=== PATIENT | female | born 1970 | race Caucasian/White ===

== ENCOUNTER 2019-02-22 09:38 | Inpatient (IN) | payer MEDICAID, SELFPAY ==
[2019-02-22] VITALS (81 sets, daily range): BP systolic 86–141; BP diastolic 53–104; PULSE 70–121; RESP 8–32; TEMP 36.4–37; O2SAT 82–100; BMI 29.0
--- NOTE | 2019-02-22 10:07 | ED_ITS ---
Entered by Vega Rodriguez LPN, acting as scribe for Robbin Brown DO HPI - Back Pain/Injury General: Chief Complaint: Back Pain/Injury Stated Complaint: kidney problems/v Time Seen by Provider: 02/22/19 10:17 Source: patient Mode of arrival: ambulatory Limitations: no limitations History of Present Illness: HPI Narrative: 48 yo female presents with c/o right flank/ right kidney pain that started about one month ago and has gradually worsened. She states the pain is severe, not improving. She was seen in clinic yesterday, found to have blood in urine, prescribed Bactrim just incase I had infection , and Zofran. She reports the Zofran is not working, she continues to have nausea with vomiting. Pt tearful during exam, actively heaving. MD elicited complaint: back pain (right lower/ flank) Onset (ago): month(s) (onset 1 month ago) Timing: progressively worsening Severity: severe Relieving factors: none Associated symptoms: Reports abdominal pain, dysuria, hematuria, nausea and vomiting; Deny chills, fatigue, fever(s) or urinary urgency Review of Systems Const: Denies: fever, chills, body aches, change in appetite, fatigue or malaise ENMT: Denies: throat pain, ear pain, nasal discharge or nasal congestion Card: Denies: chest pain, edema, shortness of breath on exertion or shortness of breath when lying down Resp: Denies: shortness of breath, productive cough or non-productive cough GI: Reports: abdominal pain, nausea and vomiting; Denies: vomiting blood, coffee grounds in vomit, diarrhea, constipation, bloating, blood in stool or black tarry stool : Reports: flank pain (right), painful urination and blood in urine; Denies: difficulty urinating, urinary frequency or urinary urgency Musc: Reports: back pain (right lower) Skin/Breast: Denies: rash or itching PFSH ED PFSH: Statuses (acute, chronic, etc) shown below reflect problem list status as previously entered and may not be historically accurate Medical History Alcoholism (Acute) Anemia (Acute) Carpal tunnel syndrome (Acute) Chronic back pain (Acute) Chronic pancreatitis (Acute) Cirrhosis (Acute) Enteritis (Acute) GERD (gastroesophageal reflux disease) (Acute) H. pylori infection (Acute) Hepatitis A (Acute) Sciatica (Acute) Surgical History H/O rotator cuff surgery (Acute) H/O: hysterectomy (Acute) History of appendectomy (Acute) History of cholecystectomy (Acute) Social History Smoking and tobacco status: current some day smoker Alcohol intake: current Desire information about alcohol rehabilitation?: No Counseling given: Yes Last alcohol use date: 02/15/19 Substance/Drug Use: former Physical Exam Const: COMMON NORMALS: oriented x3, no limitations, alert and well nourished GENERAL APPEARANCE: cooperative, in distress (severe, obvious pain) and ill appearing ORIENTATION/CONSCIOUSNESS: Yes awake, Yes oriented to person, Yes oriented to place and Yes oriented to time HENMT: COMMON NORMALS: normocephalic, head/scalp atraumatic, hearing grossly normal bilaterally, external ears normal, EAC's normal, TM's normal bilaterally, nasal mucous membranes and turbinates normal, moist oral mucous membranes and oropharynx normal HEAD & SCALP: normocephalic and atraumatic NOSE: nasal mucous membranes and turbinates normal EXTERNAL EAR: Yes external ears normal EXTERNAL AUDITORY CANAL: EAC's normal TYMPANIC MEMBRANE: TM's normal bilaterally Eye: COMMON NORMALS: PERRL, EOMs intact bilaterally, conjunctivae normal and no scleral icterus CONJUNCTIVA: Yes conjunctivae normal PUPIL: Yes PERRL Neck/C-Spine: COMMON NORMALS: full ROM, no lymphadenopathy, supple and no JVD Lymph: LYMPHATIC: no lymphadenopathy noted and no lymphedema noted Resp: COMMON NORMALS: normal respiratory effort, no retractions, no use of accessory muscles and clear to auscultation bilaterally AUSCULTATION: clear to auscultation bilaterally Cardio: COMMON NORMALS: no JVD, regular rate, regular rhythm and no murmurs RATE: regular rate RHYTHM: regular rhythm GI: COMMON NORMALS: no hepatosplenomegaly AUSCULTATION: Yes hypoactive bowel sounds PALPATION: Yes tender (Generalized) and Yes no hepatosplenomegaly : BLADDER/KIDNEY EXAM: Yes CVA tenderness on the right Back/Pelvis: GENERAL BACK: Yes CVA tenderness Extremity: COMMON NORMALS: normal to inspection, normal capillary refill, no clubbing, cyanosis or edema, no calf tenderness and no pedal edema Neuro: COMMON NORMALS: oriented x3 SENSORIUM/ORIENTATION: Yes alert, Yes oriented to person, Yes oriented to place and Yes oriented to time Skin: COMMON NORMALS: no rashes or lesions noted GENERAL SKIN EXAM: no rashes or lesions noted Course Consultations: Consultation #1: Discussed with Dr. Heck. He accepts pt for Obs. Will page Dr. Boyle for consult. Time: 16:24 Consultation #2: Discussed with Dr. Boyle. He is aware, will consult if needed. Time: 16:26 Vital Signs: Vital signs: Vital Signs Temperature 97.8 F 02/24/19 11:40 Pulse Rate 68 02/24/19 11:40 Respiratory Rate 18 02/24/19 11:40 Blood Pressure 127/92 02/24/19 11:40 Pulse Oximetry 97 02/24/19 11:40 MDM - Back Pain/Injury Lab Data: Labs: Lab Results 02/22/19 02/22/19 02/22/19 Range/Units 09:52 10:27 10:27 WBC 6.4 (4.0-10.0) 10^3/ uL RBC 3.10 L (4.1-5.3) 10^6/u L Hgb 11.1 L (11.5-15.3) g/dL Hct 33.8 L (37.0-47.0) % MCV 109.0 H (81-99) fL MCH 35.8 H (28.0-34.0) pg MCHC 32.8 (30.0-36.0) g/dL RDW 19.3 H (12.1-15.1) % Plt Count 275 (130-400) 10^3/c mm MPV 10.3 (7.4-10.4) fL Neut % (Auto) 62.8 % Lymph % (Auto) 26.3 % Stokes % (Auto) 6.9 % Eos % (Auto) 3.1 % Baso % (Auto) 0.6 % Neut # (Auto) 4.0 (1.8-7.7) 10^3/u L Lymph # (Auto) 1.7 (0.8-4.8) 10^3/u L Stokes # (Auto) 0.4 (0.2-0.9) 10^3/u L Eos # (Auto) 0.2 (0.0-0.8) 10^3/u L Baso # (Auto) 0.0 (0.0-0.1) 10^3/u L Nucleated RBC % (a uto) 0 % Nucleated RBCs # 0.0 /100WBC Sodium 139 (136-145) mmol/L Potassium 3.6 (3.5-5.1) mmol/L Chloride 103 (98-107) mmol/L Carbon Dioxide 21 L (22-29) mmol/L Anion Gap 18.6 (5-19) BUN 21 H (6-20) mg/dL Creatinine 1.2 H (0.5-0.9) mg/dL GFR Calculation 47.6 L (90-130) mL/min Glucose 99 (74-109) mg/dL Lactate (0.5-2.2) mmol/L Calcium 10.6 H (8.6-10.0) mg/Dl Total Bilirubin 0.2 (0.15-1.2) mg/dL AST 25 (0-32) U/L ALT 20 (0-33) U/L Alkaline Phosphata se 84 (35-105) IU/L Total Protein 7.6 (6.6-8.7) g/dL Albumin 4.9 (3.5-5.2) g/dL Globulin 2.7 (1.3-4.6) g/dL Lipase 147 H (13-60) U/L Urine Color Yellow (Yellow) Urine Appearance Clear (CLEAR) Urine pH 6.5 (5-7) Ur Specific Gravit y 1.015 (1.005-1.030) Urine Protein Neg (Negative) Urine Glucose (UA) Norm (Normal) Urine Ketones Negative (Negative) Urine Occult Blood Neg (Negative) Urine Nitrate Negative (Negative) Urine Bilirubin Neg (NEGATIVE) Urine Urobilinogen Norm (Negative) mg/dL Ur Leukocyte Susan ase Negative (Negative) 02/22/19 Range/Units 10:27 WBC (4.0-10.0) 10^3/ uL RBC (4.1-5.3) 10^6/u L Hgb (11.5-15.3) g/dL Hct (37.0-47.0) % MCV (81-99) fL MCH (28.0-34.0) pg MCHC (30.0-36.0) g/dL RDW (12.1-15.1) % Plt Count (130-400) 10^3/c mm MPV (7.4-10.4) fL Neut % (Auto) % Lymph % (Auto) % Stokes % (Auto) % Eos % (Auto) % Baso % (Auto) % Neut # (Auto) (1.8-7.7) 10^3/u L Lymph # (Auto) (0.8-4.8) 10^3/u L Stokes # (Auto) (0.2-0.9) 10^3/u L Eos # (Auto) (0.0-0.8) 10^3/u L Baso # (Auto) (0.0-0.1) 10^3/u L Nucleated RBC % (a uto) % Nucleated RBCs # /100WBC Sodium (136-145) mmol/L Potassium (3.5-5.1) mmol/L Chloride (98-107) mmol/L Carbon Dioxide (22-29) mmol/L Anion Gap (5-19) BUN (6-20) mg/dL Creatinine (0.5-0.9) mg/dL GFR Calculation (90-130) mL/min Glucose (74-109) mg/dL Lactate 0.7 (0.5-2.2) mmol/L Calcium (8.6-10.0) mg/Dl Total Bilirubin (0.15-1.2) mg/dL AST (0-32) U/L ALT (0-33) U/L Alkaline Phosphata se (35-105) IU/L Total Protein (6.6-8.7) g/dL Albumin (3.5-5.2) g/dL Globulin (1.3-4.6) g/dL Lipase (13-60) U/L Urine Color (Yellow) Urine Appearance (CLEAR) Urine pH (5-7) Ur Specific Gravit y (1.005-1.030) Urine Protein (Negative) Urine Glucose (UA) (Normal) Urine Ketones (Negative) Urine Occult Blood (Negative) Urine Nitrate (Negative) Urine Bilirubin (NEGATIVE) Urine Urobilinogen (Negative) mg/dL Ur Leukocyte Susan ase (Negative) Imaging Data^: CT Abd/Pel: Radiologist's impression: Patient: Melissa Portillo #: [id number] : 1970Acct#:[id number] Age/Sex: 48 / FADM Date: 02/22/19 Loc: ERRoom/Bed: Attending Dr: Ordering Provider/Ordering MD: Robbin Brown DO Date of Service: 02/22/19 Procedure(s): CT kidney stone [id number] Accession Number(s): [id number] Report Number: [id number] PROCEDURE INFORMATION: Exam: CT Abdomen And Pelvis Without Contrast Exam date and time: 02/22/2019 11:26 AM Age: 48 years old Clinical indication: Abdominal pain; Other: Jack. Flank pain; Prior surgery; Surgery date: 6+ months; Surgery type: Appy, hysto, gb; Additional info: Hematuria flank pain TECHNIQUE: Imaging protocol: Computed tomography of the abdomen and pelvis without contrast. Total DLP: 1331.74 mGy-cm Radiation optimization: All CT scans at this facility use at least one of these dose optimization techniques: automated exposure control; mA and/or kV adjustment per patient size (includes targeted exams where dose is matched to clinical indication); or iterative reconstruction. COMPARISON: CT Abdomen/Pelvis Renal [id number] 07/27/2018 2:54 PM FINDINGS: Lungs: Bibasilar atelectasis. No focal consolidation. Liver: Mild diffuse hepatic steatosis. Gallbladder and bile ducts: Extrahepatic duct again noted to be dilated similar to prior, likely due to reservoir effect in the setting of cholecystectomy. Pancreas: Normal. No ductal dilation. Spleen: Normal. No splenomegaly. Adrenals: Normal. No mass. Kidneys and ureters: No renal or ureteral calculi. No hydronephrosis. Normal renal contours. Stomach and bowel: Partial sigmoid resection. No evidence of bowel obstruction or inflammation. Appendix: Not seen; appendectomy by history. Intraperitoneal space: No free air. No significant fluid collection. Vasculature: No abdominal aortic aneurysm. Lymph nodes: Unremarkable. No enlarged lymph nodes. Bladder: Unremarkable as visualized. Reproductive: Hysterectomy. Bones/joints: No acute or aggressive osseous lesion. Soft tissues: Unremarkable. CT/CT kidney stone [id number] IMPRESSION: 1. No evidence of urinary tract calculus or obstruction. 2. No acute findings on non-contrast CT. 3. Mild hepatic steatosis. 4. Chronic and incidental findings as described. Radiation Dose CTDIVOL = (mGy): DLP = 1331.74 (mGy-cm) Dictated By:Allan Pineda MD Other Imaging: Radiologist's impression: Patient: Melissa Portillo #: [id number] : 1970Acct#:[id number] Age/Sex: 48 / FADM Date: 02/22/19 Loc: ERRoom/Bed: Attending Dr: Ordering Provider/Ordering MD: Robbin Brown DO Date of Service: 02/22/19 Procedure(s): CT abdomen pelvis w con* [id number] Accession Number(s): [id number] Report Number: [id number] PROCEDURE INFORMATION: Exam: CT Abdomen And Pelvis With Contrast Exam date and time: 02/22/2019 1:48 PM Age: 48 years old Clinical indication: Abdominal pain; Generalized; Prior surgery; Surgery date: 6+ months; Surgery type: Hysto, gb; Additional info: Abd pain and back pain TECHNIQUE: Imaging protocol: Computed tomography of the abdomen and pelvis with intravenous contrast. Total DLP: 1008.81 mGy-cm Radiation optimization: All CT scans at this facility use at least one of these dose optimization techniques: automated exposure control; mA and/or kV adjustment per patient size (includes targeted exams where dose is matched to clinical indication); or iterative reconstruction. Contrast material: VISI 320; Contrast volume: 95 ml; Contrast route: RT HAND; COMPARISON: CT kidney stone [id number] 02/22/2019 11:48 AM FINDINGS: Liver: Normal. No mass. Gallbladder and bile ducts: The gallbladder has been removed.Prominence of the intrahepatic and extrahepatic biliary ducts. This can be seen after cholecystectomy. No radiopaque retained stones are seen. Pancreas: Normal. No ductal dilation. Spleen: Normal. No splenomegaly. Adrenals: Normal. No mass. 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 Stomach and bowel: There are postoperative changes in the proximal sigmoid colon. There is diverticulosis of the colon without evidence of diverticulitis. There are air-fluid levels in the distal colon suggesting mild nonspecific colitis versus other diarrheal illness. There are mildly dilated mid to distal small bowel loops. Distal ileum is of normal caliber. Mild small bowel mucosal thickening. Appendix: No evidence of appendicitis. Intraperitoneal space: Unremarkable. No free air. No significant fluid collection. Vasculature: Unremarkable. No abdominal aortic aneurysm. Lymph nodes: Unremarkable. No enlarged lymph nodes. Bladder: Unremarkable as visualized. Reproductive: The uterus is not visualized, consistent with hysterectomy. Bones/joints: Unremarkable. No acute fracture. Soft tissues: There are benign-appearing soft tissue calcifications. CT/CT abdomen pelvis w con* [id number] IMPRESSION: 1. There are air-fluid levels in the distal colon suggesting mild nonspecific colitis versus other diarrheal illness. 2. Mild small bowel mucosal thickening consistent with nonspecific enteritis. 3. There are mildly dilated mid to distal small bowel loops and an early or partial small bowel obstruction cannot be excluded. Radiation Dose CTDIVOL = (mGy): DLP = 1008.81 (mGy-cm) Dictated By:Bhumika Dietz MD Discharge Plan Discharge Patient Disposition: Admitted As Inpatient Admit Provider: Stuart Conteh Clinical Impression: Small bowel obstruction, partial, KATRIN (acute kidney injury), Alcoholism, Alcoholic gastritis, Anemia Condition: Stable Discharge Orders: Discharge Order (Routine); Ordered 02/24/19 Ordered By: Stuart Conteh Referrals: Maggie Serna DPM [Primary Care Provider] - 02/26/19 10:30 am [facility] [place], [Staff Physician] - 1 month (PLEASE CALL [facility] TO SET UP A FOLLOW UP APPOINTMENT.) Leslie Magaña MD [Family Provider] - 2 weeks Discharge Diet: GI Soft Discharge Activity: Resume usual activity Additional Instructions: Patient was counseled about alcohol cessation. Patient was counseled about H. pylori and treatment for 2 weeks. Patient was counseled about following up with behavioral health. Interventions: ED Discharge Assessment Last Done: 02/22/19 17:20 Discharge Date/Time: 02/22/19 17:37 Coding Level of Care Code ED Chief Of Anesthesiology for Chg Fwd Exam Problem Focused The documentation recorded by the Jennifer rodriges Dani Elizabeth, LPN, accurately reflects the service I personally performed and the decisions made by me, Robbin Brown DO Feb 22, 2019 09:38
--- NOTE | 2019-02-22 10:21 | CTR_ITS ---
PROCEDURE INFORMATION: Exam: CT Abdomen And Pelvis Without Contrast Exam date and time: 02/22/2019 11:26 AM Age: 48 years old Clinical indication: Abdominal pain; Other: Jack. Flank pain; Prior surgery; Surgery date: 6+ months; Surgery type: Appy, hysto, gb; Additional info: Hematuria flank pain TECHNIQUE: Imaging protocol: Computed tomography of the abdomen and pelvis without contrast. Total DLP: 1331.74 mGy-cm Radiation optimization: All CT scans at this facility use at least one of these dose optimization techniques: automated exposure control; mA and/or kV adjustment per patient size (includes targeted exams where dose is matched to clinical indication); or iterative reconstruction. COMPARISON: CT Abdomen/Pelvis Renal [id number] 07/27/2018 2:54 PM FINDINGS: Lungs: Bibasilar atelectasis. No focal consolidation. Liver: Mild diffuse hepatic steatosis. Gallbladder and bile ducts: Extrahepatic duct again noted to be dilated similar to prior, likely due to reservoir effect in the setting of cholecystectomy. Pancreas: Normal. No ductal dilation. Spleen: Normal. No splenomegaly. Adrenals: Normal. No mass. Kidneys and ureters: No renal or ureteral calculi. No hydronephrosis. Normal renal contours. Stomach and bowel: Partial sigmoid resection. No evidence of bowel obstruction or inflammation. Appendix: Not seen; appendectomy by history. Intraperitoneal space: No free air. No significant fluid collection. Vasculature: No abdominal aortic aneurysm. Lymph nodes: Unremarkable. No enlarged lymph nodes. Bladder: Unremarkable as visualized. Reproductive: Hysterectomy. Bones/joints: No acute or aggressive osseous lesion. Soft tissues: Unremarkable. CT/CT kidney stone [id number] IMPRESSION: 1. No evidence of urinary tract calculus or obstruction. 2. No acute findings on non-contrast CT. 3. Mild hepatic steatosis. 4. Chronic and incidental findings as described. Radiation Dose CTDIVOL = (mGy): DLP = 1331.74 (mGy-cm)
[2019-02-22 10:34] LABS: Basophils % 0.6 %; Eosinophils # 0.2 10^3/uL (0.0-0.8); Eosinophils % 3.1 %; Hematocrit 33.8 % (37.0-47.0); Hemoglobin 11.1 g/dL (11.5-15.3); Lymphocytes # 1.7 10^3/uL (0.8-4.8); Lymphocytes % 26.3 %; Mean Corpuscular HGB Conc 32.8 g/dL (30.0-36.0); Mean Corpuscular Hemoglobin 35.8 pg (28.0-34.0); Mean Platelet Volume 10.3 fL (7.4-10.4); Monocytes # 0.4 10^3/uL (0.2-0.9); Monocytes % 6.9 %; Neutrophils % 62.8 %; Nucleated Red Blood Cells % 0 %; Platelet Count 275 10^3/cmm (130-400); Red Cell Distribution Width 19.3 % (12.1-15.1); White Blood Count 6.4 10^3/uL (4.0-10.0)
[2019-02-22] MEDS: sodium chloride 0.9% 1,000 ML 999 ML IV (10:44)
[2019-02-22] MEDS: metoclopramide 5 mg/mL SDV 2 mL 10 MG IV (10:44)
[2019-02-22] MEDS: morphine 4 mg/mL SDV 1 mL 8 MG IVP (10:44)
[2019-02-22 10:52] LABS: Alanine Aminotransferase 20 U/L (0-33); Albumin Level 4.9 g/dL (3.5-5.2); Alkaline Phosphatase 84 IU/L (35-105); Anion Gap 18.6 (5-19); Aspartate Amino Transferase 25 U/L (0-32); Blood Urea Nitrogen 21 mg/dL (6-20); Calcium 10.6 mg/Dl (8.6-10.0); Carbon Dioxide 21 mmol/L (22-29); Chloride 103 mmol/L (98-107); Globulin 2.7 g/dL (1.3-4.6); Glomerular Filtration Rate 47.6 mL/min (90-130); Glucose 99 mg/dL (74-109); Lactate (Lactic Acid level) 0.7 mmol/L (0.5-2.2); Lipase 147 U/L (13-60); Potassium 3.6 mmol/L (3.5-5.1); Sodium 139 mmol/L (136-145); Total Bilirubin 0.2 mg/dL (0.15-1.2); Total Protein 7.6 g/dL (6.6-8.7)
[2019-02-22 11:07] LABS: Add Urine Microscopic? NO
[2019-02-22 11:26] LABS: Protein Urine Neg (Negative); Specific Gravity, Urine 1.015 (1.005-1.030); Urine Appearance Clear (CLEAR); Urine Color Yellow (Yellow); pH Urine 6.5 (5-7)
[2019-02-22 11:27] LABS: Bilirubin Urine Neg (NEGATIVE); Blood Urine Neg (Negative); Glucose Urine UA Norm (Normal); Ketones Urine Negative (Negative); Leukocyte Esterase Urine Negative (Negative); Nitrate Urine Negative (Negative); Urobilinogen Urine Norm (Negative)
[2019-02-22] MEDS: morphine 4 mg/mL SDV 1 mL IVP ×2 (12:23→16:23)
[2019-02-22] MEDS: sodium chlor 0.45% +KCl 20 mEq 20 MEQ/1,000 ML BAG 150 MEQ IV (12:55)
--- NOTE | 2019-02-22 13:05 | CTR_ITS ---
PROCEDURE INFORMATION: Exam: CT Abdomen And Pelvis With Contrast Exam date and time: 02/22/2019 1:48 PM Age: 48 years old Clinical indication: Abdominal pain; Generalized; Prior surgery; Surgery date: 6+ months; Surgery type: Hysto, gb; Additional info: Abd pain and back pain TECHNIQUE: Imaging protocol: Computed tomography of the abdomen and pelvis with intravenous contrast. Total DLP: 1008.81 mGy-cm Radiation optimization: All CT scans at this facility use at least one of these dose optimization techniques: automated exposure control; mA and/or kV adjustment per patient size (includes targeted exams where dose is matched to clinical indication); or iterative reconstruction. Contrast material: VISI 320; Contrast volume: 95 ml; Contrast route: RT HAND; COMPARISON: CT kidney stone [id number] 02/22/2019 11:48 AM FINDINGS: Liver: Normal. No mass. Gallbladder and bile ducts: The gallbladder has been removed.Prominence of the intrahepatic and extrahepatic biliary ducts. This can be seen after cholecystectomy. No radiopaque retained stones are seen. Pancreas: Normal. No ductal dilation. Spleen: Normal. No splenomegaly. Adrenals: Normal. No mass. 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 Stomach and bowel: There are postoperative changes in the proximal sigmoid colon. There is diverticulosis of the colon without evidence of diverticulitis. There are air-fluid levels in the distal colon suggesting mild nonspecific colitis versus other diarrheal illness. There are mildly dilated mid to distal small bowel loops. Distal ileum is of normal caliber. Mild small bowel mucosal thickening. Appendix: No evidence of appendicitis. Intraperitoneal space: Unremarkable. No free air. No significant fluid collection. Vasculature: Unremarkable. No abdominal aortic aneurysm. Lymph nodes: Unremarkable. No enlarged lymph nodes. Bladder: Unremarkable as visualized. Reproductive: The uterus is not visualized, consistent with hysterectomy. Bones/joints: Unremarkable. No acute fracture. Soft tissues: There are benign-appearing soft tissue calcifications. CT/CT abdomen pelvis w con* [id number] IMPRESSION: 1. There are air-fluid levels in the distal colon suggesting mild nonspecific colitis versus other diarrheal illness. 2. Mild small bowel mucosal thickening consistent with nonspecific enteritis. 3. There are mildly dilated mid to distal small bowel loops and an early or partial small bowel obstruction cannot be excluded. Radiation Dose CTDIVOL = (mGy): DLP = 1008.81 (mGy-cm)
[2019-02-22] MEDS: iodixanol 320 mg/mL 100mL Btl IV (13:59)
[2019-02-22] MEDS: fentaNYL 50 mcg/mL INJ 2mL IVP (14:16)
--- NOTE | 2019-02-22 18:35 | P.HP_ITS ---
Providers/Chief Complaint Admitting Physician: Stuart Conteh MD Primary Care Provider: MALDONADO Mendez Chief Complaint: ileus;early sob;persistant n/v History of Present Illness Melissa Portillo is a 48 year old female with past medical history of alcoholism, last drink was 1 week ago, history of recurrent chronic pancreatitis attributed to alcoholism per patient ,presented to the emergency department for abdominal pain today. She was reportedly taking alcohol 1 week ago. She presents to the ED with history that she started experiencing right-sided abdominal pain which was initially described as being located in the right flank and back. This pain was intermittent sharp however tolerable for the most part therefore she did not seek any help. 3 days ago also started on the left flank. She describes it as dull pain and feels as if someone is punching her in the back. this pain is more continuous. Yesterday she has also started experiencing pain in the epigastrium and left upper quadrant as well. She reports that her past episodes of pancreatitis have been very similar. She also endorses multiple episodes of diarrhea yesterday. No complaints of melena. No blood in stools. No tenesmus. She has had a cholecystectomy in 2000 for what appears to be acute cholecystitis. On evaluation in the ER today she is afebrile, though she does report fever up to 103 Fahrenheit at home. She denies any complaints of nausea or vomiting at this time. She underwent a CT of the abdomen and pelvis today which did not show any evidence of urinary tract calculus obstruction. Air-fluid levels were also found in the distal colon suggesting mild nonspecific colitis versus other diarrheal illness,mild small bowel mucosal thickening consistent with nonspecific enteritis. There was mildly dilated mid to distal small bowel loops and an early or partial SBO which could not be excluded. Pancreas on this above CT has been read as normal without any ductal dilatation. The spleen is also noted to be normal without any splenomegaly. Liver is also noted to be normal. Lipase is at 147, however this appears to be more chronic dating back to at least September 2018 Ranging between 10 6-1 64 in the past. She has been taking Tylenol at home without any relief in symptoms. 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 She has also has a history of upper GI bleed thought to be secondary to a Brinda-Ellis tear. She underwent an upper GI endoscopy in August 2018 which showed gastritis and duodenitis. No paresis were noticed. Other notable history includes that of acute psychosis in June 2017. Review of Systems General: Reports: 10 or more systems reviewed and unremarkable except in HPI and below Const: Reports: fever, body aches and change in weight (She has been gaining weight); Denies: chills Eyes: Denies: change in vision or blurry vision ENMT: Denies: throat pain, painful swallowing or hoarseness Card: Denies: chest pain, palpitations, irregular heart rhythm or edema Resp: Denies: shortness of breath, productive cough, non-productive cough or wheezing GI: Reports: abdominal pain, heartburn/indigestion and diarrhea; Denies: nausea, vomiting, vomiting blood, coffee grounds in vomit, difficulty swallowing, feeling full early, constipation, bloating, cramping or belching : Reports: flank pain; Denies: difficulty urinating, painful urination, urinary frequency or urinary urgency Medications/Allergies Home Medications Medication Instructions Recorded Confirmed Last Taken Type Zofran 4 mg PO Q6H PRN 02/22/19 02/22/19 02/22/19 History gabapentin 800 mg PO TID 02/22/19 02/22/19 02/21/19 History Allergies Allergy/AdvReac Type Severity Reaction Status Date / Time codeine Allergy ALGY-Hives Verified 02/22/19 10:03 ketorolac [From Toradol] Allergy ALGY-Rash Verified 02/22/19 10:02 naproxen [From Naprosyn] Allergy ADR-Vomitin Verified 02/22/19 10:02 g prochlorperazine Allergy ALGY-Swell Verified 02/22/19 10:02 [From Compazine] Lip/Tongue/Throat PFSH Acute PFSH: Statuses (acute, chronic, etc) shown below reflect problem list status as previously entered and may not be historically accurate Medical History Alcoholism (Acute) Anemia (Acute) Carpal tunnel syndrome (Acute) Chronic back pain (Acute) Chronic pancreatitis (Acute) Cirrhosis (Acute) Enteritis (Acute) GERD (gastroesophageal reflux disease) (Acute) H. pylori infection (Acute) Hepatitis A (Acute) Sciatica (Acute) Surgical History H/O rotator cuff surgery (Acute) H/O: hysterectomy (Acute) History of appendectomy (Acute) History of cholecystectomy (Acute) Social History Smoking and tobacco status: current some day smoker Alcohol intake: current Desire information about alcohol rehabilitation?: No Counseling given: Yes Last alcohol use date: 02/15/19 Substance/Drug Use: former Vitals/I&O/Wt Last Vital Signs Temp 97.5 F L 02/22/19 17:57 Pulse 74 02/22/19 17:57 Resp 20 H 02/22/19 17:57 BP 94/59 02/22/19 17:57 Pulse Ox 99 02/22/19 17:57 Weight last 48 hrs Weight 76.657 kg Physical Exam Const: COMMON NORMALS: no apparent distress, oriented x3 and well nourished HENMT: COMMON NORMALS: normocephalic and head/scalp atraumatic Eye: COMMON NORMALS: PERRL, EOMs intact bilaterally, conjunctivae normal, no scleral icterus, no papilledema and normal visual butts by confrontation Resp: COMMON NORMALS: normal respiratory effort, no retractions, no use of accessory muscles and clear to auscultation bilaterally Cardio: COMMON NORMALS: no JVD, regular rate, regular rhythm, S1 normal heart sound, S2 normal heart sound, no gallops, no clicks, no murmurs, no rub and peripheral pulses 2+ throughout GI: COMMON NORMALS: normal to inspection, nondistended, normoactive bowel sounds and soft to palpation PALPATION: Yes soft and Yes tender (I am unable to ascertain the tenderness. she she starts to complain of pain as soon as I placed my hand on the abdomen even without minimal palpation. I do not appreciate any focal guarding. Unable to assess for rebound as even with light touch patient complains of pain) Details: RLQ, LUQ and RUQ Extremity: COMMON NORMALS: normal to inspection, full ROM, normal capillary refill, no joint enlargement, no clubbing, cyanosis or edema, no calf tenderness and no pedal edema Sepsis: Is patient septic: No Data : 02/24/19 05:27 02/24/19 05:27 A&P Assessment and plan (1) Chronic pancreatitis: Status: Acute Code(s): K86.1 - Other chronic pancreatitis (2) Alcoholism: Status: Acute Code(s): F10.20 - Alcohol dependence, uncomplicated (3) Small bowel obstruction, partial: Status: Acute Code(s): K56.600 - Partial intestinal obstruction, unspecified as to cause (4) Enteritis: Status: Acute Code(s): K52.9 - Noninfective gastroenteritis and colitis, unspecified (5) Diarrhea: Status: Acute Code(s): R19.7 - Diarrhea, unspecified (6) KATRIN (acute kidney injury): Status: Acute Code(s): N17.9 - Acute kidney failure, unspecified Additional A&P Information Additional A&P Information: In a patient with chronic pancreatitis and multiple episodes of diarrhea, there is concern for pancreatic insufficiency and resultant mild obstructive diarrhea. We will check for stool pH, lactoferrin and stool fat. We will additionally perform bacterial antigen panel and C. difficile PCR to rule out infective causes. Given absence of any current fever or leukocytosis doubt that this is infectious in nature. Additionally patient does not complain of any characteristic symptoms of colitis such as tenesmus. Lipase is not markedly different from her baseline. Will add on amylase. Pancreas on CT scan performed today looks completely normal, doubt acute pancreatitis, however given significant history and current pain will place patient on a pain control regimen with as needed morphine for now. IV hydration. Currently patient is receiving normal saline at 150 cc/h. I will continue this. Patient does have a history of GERD and alcoholic gastritis. Will start patient on sucralfate and Protonix for this. Again partial SBO as noted on CAT scan without overt clinical symptoms at this time. Patient denies any complaints of nausea or vomiting.. She is having multiple episodes of diarrhea. Hold off on placement of NGT for now. I will place her on a clear liquid diet and advance as tolerated. Denies any melena to me. Of note previous CAT scans performed in the past have noticed findings of enteritis and nonspecific colitis in the setting of fecal impaction. Last drink was 1 week ago per patient. Will place on CIWA protocol in case patient goes into alcohol withdrawal. Fever to monitor off antimicrobials given absence of any signs of sepsis at this time. Patient is overall relatively clinically well-appearing with the symptoms that she is describing. DVT prophylaxis is with Lovenox CODE STATUS is full code. Attestations Medical Necessity Statement*: More than 2 MN for pancreatitis Coding Level of Care Code Acute Facility Practice Specialist for Chg Fwd Exam Problem Focused Diagnoses Chronic pancreatitis K86.1 Alcoholism F10.20 Small bowel obstruction, partial K56.600 Enteritis K52.9 Diarrhea R19.7 KATRIN (acute kidney injury) N17.9
[2019-02-22] MEDS: acetaminophen 325 mg Tablet 650 MG PO (20:33)
[2019-02-22] MEDS: morphine 4 mg/mL SDV 1 mL 2 MG IVP (21:07)
[2019-02-22] MEDS: sodium chloride 0.9% 1,000 ML 125 ML IV (21:59)
[2019-02-22] MEDS: enoxaparin 30 mg/0.3 mL Syringe SUBCUT (21:59)
[2019-02-22] MEDS: gabapentin 400 mg Capsule 800 MG PO (22:00)
[2019-02-23] VITALS (8 sets, daily range): BP systolic 88–118; BP diastolic 55–74; PULSE 72–85; RESP 18–22; TEMP 36.6–37.4; O2SAT 93–98
[2019-02-23] MEDS: acetaminophen 325 mg Tablet 650 MG PO ×3 (01:42→16:10)
[2019-02-23] MEDS: morphine 4 mg/mL SDV 1 mL 2 MG IVP (02:15)
[2019-02-23 04:55] LABS: Basophils % 0.4 %; Eosinophils # 0.1 10^3/uL (0.0-0.8); Eosinophils % 2.2 %; Hematocrit 25.5 % (37.0-47.0); Hemoglobin 8.1 g/dL (11.5-15.3); Lymphocytes # 1.6 10^3/uL (0.8-4.8); Mean Corpuscular HGB Conc 31.8 g/dL (30.0-36.0); Mean Corpuscular Hemoglobin 35.4 pg (28.0-34.0); Mean Corpuscular Volume 111.4 fL (81-99); Mean Platelet Volume 9.4 fL (7.4-10.4); Monocytes # 0.2 10^3/uL (0.2-0.9); Monocytes % 5.1 %; Neutrophils # 2.6 10^3/uL (1.8-7.7); Neutrophils % 57.1 %; Nucleated Red Blood Cells % 0 %; Platelet Count 174 10^3/cmm (130-400); Red Blood Count 2.29 10^6/uL (4.1-5.3); Red Cell Distribution Width 19.3 % (12.1-15.1); White Blood Count 4.5 10^3/uL (4.0-10.0)
[2019-02-23 05:09] LABS: Alanine Aminotransferase 66 U/L (0-33); Albumin Level 3.9 g/dL (3.5-5.2); Alkaline Phosphatase 104 IU/L (35-105); Anion Gap 11.8 (5-19); Aspartate Amino Transferase 220 U/L (0-32); Blood Urea Nitrogen 12 mg/dL (6-20); Calcium 9.1 mg/Dl (8.6-10.0); Carbon Dioxide 20 mmol/L (22-29); Chloride 109 mmol/L (98-107); Globulin 1.9 g/dL (1.3-4.6); Glomerular Filtration Rate 88.6 mL/min (90-130); Glucose 98 mg/dL (74-109); Potassium 3.8 mmol/L (3.5-5.1); Sodium 137 mmol/L (136-145); Total Bilirubin 0.4 mg/dL (0.15-1.2); Total Protein 5.8 g/dL (6.6-8.7); Triglycerides 108 mg/dL (0-150)
[2019-02-23] MEDS: ondansetron 2 mg/ML SDV 2 mL 4 MG IVP ×2 (08:16→20:28)
[2019-02-23] MEDS: pantoprazole DR 40 mg Tablet PO ×2 (09:02→17:13)
[2019-02-23] MEDS: gabapentin 400 mg Capsule 800 MG PO ×3 (09:02→20:23)
[2019-02-23] MEDS: folic acid 1 mg Tablet PO (09:02)
[2019-02-23] MEDS: multivitamin therapeutic Tablet 1 TAB PO (09:03)
[2019-02-23] MEDS: thiamine 100 mg Tablet PO (09:03)
[2019-02-23 10:52] LABS: Amphetamines Screen Urine Negative (Negative); Barbiturates Screen Urine Negative (Negative); Benzodiazepines Screen Urine Negative (Negative); Cocaine Screen Urine Negative (Negative); PCP Screen Urine Negative (Negative); THC Screen Urine Negative (Negative)
[2019-02-23] MEDS: TRAMadol 50 mg Tablet PO ×2 (11:56→18:23)
[2019-02-23 12:18] LABS: Iron 40 ug/dL (37-145); Percent Saturation 15.6 % (20-50); Total Iron Binding Capacity 255 mg/dL; Unsaturated Iron Binding 215 ug/dL (112-347)
[2019-02-23 12:36] LABS: Estmated Average Glucose 82; Hemoglobin A1C 4.5 % (4.0-6.0)
[2019-02-23] MEDS: sodium chloride 0.9% 1,000 ML 125 ML IV (13:00)
--- NOTE | 2019-02-23 13:58 | PC.CHAP ---
Pastoral Care Encounter/Spiritual Assessment Type of Contact [] Declined mechanical systems engineer visit [] Patient/Family/Request visit [] Outpatient visit [] Follow-up visit [] Physician referral [] Code/Alert [X] Routine visit [] Staff referral [] Actively dying [X] Patient sleeping [] Family support [] [] Out of room [] Palliative care [] [] Receiving care in room [] Pre-surgical visit [] Trauma [] Long length of stay [] ICU visit [] Other: Relational/Emotional Strength [] Patient feels connected with others/family/visitors/staff [] Distress [] Loneliness/isolation [] Abandonment Spirituality of Patient [] Person of Lety [] Attends Yarsani of their Lety [] Believes in Prayer [] Reads Bible or Restoration materials [] There are Spiritual issues to be addressed [employer] Interventions [] Prayer [] Active listening [] Non-anxious presence [] Spiritual/emotional support [] Crisis/trauma care [] Spiritual counseling [] Bereavement support [] Provided bereavement packet [] Provided Bible/devotional materials [] Provided toy/stuffed animal, coloring book to patient or family member [] Completed spiritual assessment [] Provided Communion [] Anointing/[place] [] Salvation [] Other: Impact on Illness or Injury [] Angry [] Fearful [] Anxious [] Often cries [] Exhaustion [] Unable to work [] Unable to attend muslim [] Unable to walk/stand [] Unable to read [] Unable to drive [] Unable to eat/drink [] Unable to sleep [] Unable to be with family [] Other: Summary PATIENT WAS SLEEPING,discount clerk WILL REVISIT. Time spent with patient 5 MIN.
--- NOTE | 2019-02-23 16:53 | PM.PN ---
Subjective Subjective: Interval history: No acute events overnight. Admitted yesterday evening. This morning on evaluation when I walked into the room patient was sitting comfortably in bed watching television and working on her phone but on interview patient is anxious and tearful asking for IV pain medications. She states her abdomen is hurting all over. Patient in past on review of records has shown some pain medication seeking behavior. She complains of mild nausea but no vomiting. Denies of having any dysuria. Denies of having any further diarrhea. Medications: Reviewed: Yes Vitals/I&O/Wt Last Vital Signs Temp 99.4 F 02/23/19 15:33 Pulse 85 02/23/19 15:33 Resp 20 H 02/23/19 15:33 BP 92/60 02/23/19 15:33 Pulse Ox 96 02/23/19 15:33 02/23/19 02/23/19 02/23/19 06:59 14:59 22:59 Intake Total 1000 / 1000 1080 / 1080 Balance 1000 / 1000 1080 / 1080 Weight last 48 hrs Weight 85.275 kg Weight 76.657 kg Physical Exam Narrative: EXAM NARRATIVE: General: No acute distress, AO x3 HEENT: PERRLA, pupils bilaterally equal and reactive Chest: Normal vesicular breath sounds, no added sounds, equal good air entry bilaterally CVS: S1-S2 regular, no murmurs, no tachycardia, no gallops, no rubs Abdomen: Soft, nontender, no organomegaly, bowel sounds present. Patient jumps because of pain on slight touch but has no pain when auscultating for bowel sounds. No rebound tenderness. Neuro: No focal deficits, no facial deformity, AO x3, power 5/5 in all limbs Psych: Anxious, tearful, cooperative, normal speech, denies any suicidal homicidal ideation. Patient does have pain medication seeking behavior. Data Micro: Micro: Microbiology 02/22/19 10:20 Stool Lactoferrin - Final Stool Enteric Pathogens (PCR) - Final C.difficile Toxin B Gene (PCR) - Fin al Occult Blood (FIT) - Final A&P Assessment and plan (1) Diarrhea: Status: Acute Code(s): R19.7 - Diarrhea, unspecified (2) Enteritis: Status: Acute Code(s): K52.9 - Noninfective gastroenteritis and colitis, unspecified (3) Anemia: Status: Acute Code(s): D64.9 - Anemia, unspecified (4) Chronic pancreatitis: Status: Acute Code(s): K86.1 - Other chronic pancreatitis (5) Alcoholism: Status: Acute Code(s): F10.20 - Alcohol dependence, uncomplicated (6) Small bowel obstruction, partial: Status: Acute Code(s): K56.600 - Partial intestinal obstruction, unspecified as to cause (7) KATRIN (acute kidney injury): Status: Acute Code(s): N17.9 - Acute kidney failure, unspecified (8) Alcoholic gastritis: Status: Acute Code(s): K29.20 - Alcoholic gastritis without bleeding Additional A&P Information Additional A&P Information: Abdominal pain/diarrhea/chronic pancreatitis: History of alcoholic gastritis. States she had last alcohol 4 days ago. She states she takes 1 pint of vodka every day. CT abdomen done on admission negative for any inflammation of the pancreas, hydronephrosis, stranding around bilateral kidneys, obstructive uropathy. Does have a concern of mild enteritis. For enteritis: Patient has no white count. Lactate is normal. Has remained afebrile and hemodynamically stable. Tolerating clear liquid diet well. Will advance to full liquid diet for lunch and if he tolerates well can do GI soft for night. Stool studies awaited. Sample was sent this morning. Will monitor for bacterial antigen, C. difficile PCR, lactoferrin. Continue with IV hydration with normal saline at 125 cc/h. No signs of fluid overload. Pancreatitis: Diarrhea most likely because of chronic pancreatitis. Stool pH and stool fat has been sent. But both tests are sent out and will take around a week to come back. We will start patient on Creon with meals. Alcoholic gastritis: More likely the reason of symptoms. We will continue her on sucralfate. Will increase Protonix to twice daily. Continue with Zofran as needed [id number]. We will send for H. pylori antigen. Given the history of pain seeking behavior in the past. Will avoid any narcotics. We will add tramadol 50 mg every 6 hours as needed to the current treatment regimen of Tylenol as needed. SBO: Partial: Patient continues to have bowel movements. Advance diet as tolerated. No vomiting so will avoid for NG tube. Patient continues to have bowel movements. History of alcohol abuse: Patient states has not had alcohol for more than 4 days. Patient is out of the window for alcohol withdrawal. We will continue with Ativan as needed as per [facility] protocol. At present [facility] 2. Continue with folic acid and thiamine orally. Anemia: In past patient has had hemoglobin as low as high eights to low nines. Given the history of alcohol abuse and alcoholic gastritis cannot rule out GI bleed. Stools sample sent this morning. Will await for stool for occult blood. Continue with Protonix twice daily. Check iron panel. Fever to monitor off antimicrobials given absence of any signs of sepsis at this time. Patient is overall relatively clinically well-appearing with the symptoms that she is describing. DVT prophylaxis is with Lovenox CODE STATUS is full code. Full liquid diet. Attestations Medical Necessity Statement*: Continued hospitalization for management of abdominal pain most likely alcoholic gastritis and anemia. Time Spent in Patient Care: Greater than 35 minutes (>than 50% of time spent in counselling and/or direct pt care on unit). Coding Level of Care Code Acute [facility] Products Assembler for [facility]vin Diagnoses Diarrhea R19.7 Enteritis K52.9 Anemia D64.9 Chronic pancreatitis K86.1 Alcoholism F10.20 Small bowel obstruction, partial K56.600 KATRIN (acute kidney injury) N17.9 Alcoholic gastritis K29.20
[2019-02-23] MEDS: sucralfate 1 gm Tablet PO ×2 (17:13→20:23)
[2019-02-23 18:13] LABS: H. Pylori IgG Antibody Positive (Negative)
[2019-02-23] MEDS: LORazepam 2 mg/mL INJ 1 mL 1 MG IVP (20:19)
[2019-02-23] MEDS: enoxaparin 30 mg/0.3 mL Syringe SUBCUT (20:21)
[2019-02-23] MEDS: TRAMadol 50 mg Tablet 25 MG PO (22:22)
[2019-02-24] VITALS: BP 117/63; PULSE 88; RESP 20; TEMP 36.9; O2SAT 93
[2019-02-24] MEDS: sodium chloride 0.9% 1,000 ML 125 ML IV (00:11)
[2019-02-24 04:00] VITALS: BP 116/76; PULSE 76; RESP 20; TEMP 37.1; O2SAT 96
[2019-02-24] MEDS: sucralfate 1 gm Tablet PO ×2 (06:13→12:19)
[2019-02-24 06:23] LABS: Basophils % 0.5 %; Eosinophils # 0.1 10^3/uL (0.0-0.8); Eosinophils % 2.4 %; Hematocrit 26.9 % (37.0-47.0); Hemoglobin 8.5 g/dL (11.5-15.3); Lymphocytes # 1.7 10^3/uL (0.8-4.8); Mean Corpuscular HGB Conc 31.6 g/dL (30.0-36.0); Mean Corpuscular Hemoglobin 36.3 pg (28.0-34.0); Mean Platelet Volume 10.4 fL (7.4-10.4); Monocytes # 0.3 10^3/uL (0.2-0.9); Monocytes % 6.5 %; Neutrophils # 2.1 10^3/uL (1.8-7.7); Neutrophils % 50.4 %; Nucleated Red Blood Cells % 0 %; Platelet Count 204 10^3/cmm (130-400); Red Blood Count 2.34 10^6/uL (4.1-5.3); Red Cell Distribution Width 19.7 % (12.1-15.1); White Blood Count 4.2 10^3/uL (4.0-10.0)
[2019-02-24 06:33] LABS: Alanine Aminotransferase 39 U/L (0-33); Albumin Level 3.8 g/dL (3.5-5.2); Alkaline Phosphatase 91 IU/L (35-105); Anion Gap 11.3 (5-19); Aspartate Amino Transferase 42 U/L (0-32); Blood Urea Nitrogen 11 mg/dL (6-20); Calcium 10.2 mg/Dl (8.6-10.0); Carbon Dioxide 21 mmol/L (22-29); Chloride 109 mmol/L (98-107); Glomerular Filtration Rate 88.6 mL/min (90-130); Glucose 107 mg/dL (74-109); Potassium 4.3 mmol/L (3.5-5.1); Sodium 137 mmol/L (136-145); Total Bilirubin 0.2 mg/dL (0.15-1.2); Total Protein 5.8 g/dL (6.6-8.7)
[2019-02-24 08:00] VITALS: BP 142/90; PULSE 67; RESP 16; TEMP 36.4; O2SAT 96
[2019-02-24] MEDS: pantoprazole DR 40 mg Tablet PO ×2 (10:04→10:05)
[2019-02-24] MEDS: TRAMadol 50 mg Tablet PO (10:05)
[2019-02-24] MEDS: multivitamin therapeutic Tablet 1 TAB PO (10:05)
[2019-02-24] MEDS: folic acid 1 mg Tablet PO (10:05)
[2019-02-24] MEDS: thiamine 100 mg Tablet PO (10:05)
[2019-02-24] MEDS: gabapentin 400 mg Capsule 800 MG PO (10:06)
--- NOTE | 2019-02-24 11:34 | P.DS_ITS ---
Discharge Providers Date of Admission: 02/22/19 19:15 Date of Discharge: 02/24/19 Attending Provider at Admission: Stuart Conteh MD Attending Provider at Discharge: Stuart Conteh MD Primary Care Provider: MALDONADO Mendez Diagnoses at Discharge Discharge Diagnosis (1) Diarrhea: Status: Acute (2) Enteritis: Status: Acute (3) Anemia: Status: Acute (4) Chronic pancreatitis: Status: Acute (5) Alcoholism: Status: Acute (6) Small bowel obstruction, partial: Status: Acute (7) KATRIN (acute kidney injury): Status: Acute (8) Alcoholic gastritis: Status: Acute (9) H. pylori infection: Status: Acute Reason for Visit Reason for Visit: Reason For Visit: ileus;early sob;persistant n/v Hospital Course Discharge Summary: Melissa Portillo is a 48 year old female with past medical history of alcoholism, last drink was 1 week ago, history of recurrent chronic pancreatitis attributed to alcoholism per patient ,presented to the emergency department for abdominal pain today. She was reportedly taking alcohol 1 week ago. She presents to the ED with history that she started experiencing right-sided abdominal pain which was initially described as being located in the right flank and back. This pain was intermittent sharp however tolerable for the most part therefore she did not seek any help. 3 days ago also started on the left flank. She describes it as dull pain and feels as if someone is punching her in the back. this pain is more continuous. She had CT abdomen which ruled out any renal pathology and pancreatic edema. She has a history of chronic pancreatitis and her lipase on admission was mildly elevated though she was able to tolerate p.o. diet. She was started on clear liquids and then advance to full liquids and GI soft gradually. Patient tolerated diet well. Patient during admission was asking for IV pain medications multiple times but she was only treated with tramadol. Her CIWA remained normal during the whole admission. Her stool studies were negative for GI bleed, infective source, parasite. But were positive for H. pylori antigen. Patient symptoms are most likely because of a c ombination of H. pylori and alcoholic gastritis. Patient was counseled to follow-up with behavioral health to help with alcohol cessation rehabilitation. Patient is being discharged in hemodynamically stable condition back to her baseline. On discharge patient is asking for IV pain medications or hydrocodone but patient was counseled regarding against these medications. Physical Exam Narrative: EXAM NARRATIVE: General: No acute distress, AO x3 HEENT: PERRLA, pupils bilaterally equal and reactive Chest: Normal vesicular breath sounds, no added sounds, equal good air entry bilaterally CVS: S1-S2 regular, no murmurs, no tachycardia, no gallops, no rubs Abdomen: Soft, nontender, no organomegaly, bowel sounds present. Patient jumps because of pain on slight touch but has no pain when auscultating for bowel sounds. No rebound tenderness. Neuro: No focal deficits, no facial deformity, AO x3, power 5/5 in all limbs Psych: Anxious, tearful, cooperative, normal speech, denies any suicidal homicidal ideation. Patient does have pain medication seeking behavior. Discharge Data Data Completed and Pending: Completed Studies During Hospitalization Category Date Time Status CT abdomen pelvis w con* [id number] Stat Cat Scan 02/22/19 13:[address] kidney stone [id number] Urgent Cat Scan 02/22/19 10:21 Completed Pending at discharge Category Date Time Status Helicobacter Pylo ri AG Stool Routin e Lab 02/23/19 10:20 Received Miscellaneous Nneka t Routine Lab 02/22/19 10:20 Received Labs from last 24 hours 02/24/19 02/24/19 02/23/19 05:27 05:27 04:43 WBC 4.2 RBC 2.34 L Hgb 8.5 L Hct 26.9 L MCV 115.0 H MCH 36.3 H MCHC 31.6 RDW 19.7 H Plt Count 204 MPV 10.4 Neut % (Auto) 50.4 Lymph % (Auto) 40.0 Barren % (Auto) 6.5 Eos % (Auto) 2.4 Baso % (Auto) 0.5 Neut # (Auto) 2.1 Lymph # (Auto) 1.7 Barren # (Auto) 0.3 Eos # (Auto) 0.1 Baso # (Auto) 0.0 Nucleated RBC % (a uto) 0 Nucleated RBCs # 0.0 Sodium 137 Potassium 4.3 Chloride 109 H Carbon Dioxide 21 L Anion Gap 11.3 BUN 11 Creatinine 0.7 GFR Calculation 88.6 L Glucose 107 Estimat Average Gl ucose Hemoglobin A1c Calcium 10.2 H Iron TIBC % Saturation Unsat Iron Binding Total Bilirubin 0.2 AST 42 H ALT 39 H Alkaline Phosphata se 91 Total Protein 5.8 L Albumin 3.8 Globulin 2.0 H. pylori IgG Anti body Positive H 02/23/19 02/23/19 04:43 04:43 WBC RBC Hgb Hct MCV MCH MCHC RDW Plt Count MPV Neut % (Auto) Lymph % (Auto) Barren % (Auto) Eos % (Auto) Baso % (Auto) Neut # (Auto) Lymph # (Auto) Barren # (Auto) Eos # (Auto) Baso # (Auto) Nucleated RBC % (a uto) Nucleated RBCs # Sodium Potassium Chloride Carbon Dioxide Anion Gap BUN Creatinine GFR Calculation Glucose Estimat Average Gl ucose 82 Hemoglobin A1c 4.5 Calcium Iron 40 TIBC 255 % Saturation 15.6 L Unsat Iron Binding 215 Total Bilirubin AST ALT Alkaline Phosphata se Total Protein Albumin Globulin H. pylori IgG Anti body Vitals: Last Vital Signs Temp 97.6 F 02/24/19 08:00 Pulse 67 02/24/19 08:00 Resp 16 02/24/19 08:00 BP 142/90 02/24/19 08:00 Pulse Ox 96 02/24/19 08:00 Discharge Plan Discharge Patient Disposition: Home, Self-Care Condition: Stable Prescriptions: New tramadol 50 mg Tablet 50 mg PO Q6H PRN (Reason: Moderate Pain) Qty: 10 RF: 0 alum-mag hydroxide-simeth [Mag-Al Plus] 200-200-20 mg/5 mL Suspension 15 ml PO Q6H PRN (Reason: Indigestion) Qty: 100 RF: 0 ferrous sulfate 325 mg (65 mg iron) tablet,delayed release (DR/EC) 325 mg PO BID Qty: 60 RF: 0 levofloxacin 750 mg tablet 750 mg PO Q24H 14 Days Qty: 14 RF: 0 Thera 400 mcg Tablet 1 tab PO DAILY Qty: 14 RF: 0 thiamine mononitrate (vit B1) [Vitamin B-1 (mononitrate)] 100 mg Tablet 100 mg PO DAILY Qty: 30 RF: 0 sucralfate 1 gram Tablet 1 g PO AC&BEDTIME Qty: 30 RF: 0 pantoprazole 40 mg Tablet,Delayed Release (Dr/Ec) 40 mg PO BIDWM Qty: 60 RF: 0 amoxicillin 500 mg capsule 500 mg PO BID 14 Days Qty: 28 RF: 0 Continued Zofran 4 mg Tablet 4 mg PO Q6H PRN (Reason: Nausea) RF: 0 gabapentin 800 mg Tablet 800 mg PO TID RF: 0 Discontinued sulfamethoxazole-trimethoprim 800-160 mg Tablet 1 tab PO BID RF: 0 Discharge Orders: Discharge Order (Routine); Ordered 02/24/19 Ordered By: Stuart Conteh Referrals: Maggie Serna DPM [Primary Care Provider] - 2 weeks [facility] [Staff Physician] - 1 month Leslie Magaña MD [Family Provider] - 2 weeks Discharge Diet: GI Soft Discharge Activity: Resume usual activity Activity Restrictions/Additional Instructions: Patient was counseled about alcohol cessation. Patient was counseled about H. pylori and treatment for 2 weeks. Patient was counseled about following up with behavioral health. Discharge Attestations Time Spent in Discharge Care*: greater than 30 min Specific Discharge Activities: Specific discharge activities: educating patient and educating and/or supporting family/caregiver Status at Discharge: Cognitive status at discharge: cognitively intact , Behavioral status at discharge: cooperative , Functional status at discharge: independent ambulation Overall status at discharge: patient is back to baseline Quality Metrics Clinical Quality Measures During this hospital stay, did patient experience: None Coding Level of Care Code Acute Brain Wave Technician for Chg Fwd Diagnoses Diarrhea R19.7 Enteritis K52.9 Anemia D64.9 Chronic pancreatitis K86.1 Alcoholism F10.20 Small bowel obstruction, partial K56.600 KATRIN (acute kidney injury) N17.9 Alcoholic gastritis K29.20 H. pylori infection A04.8
[2019-02-24 11:40] VITALS: BP 127/92; PULSE 68; RESP 18; TEMP 36.6; O2SAT 97
[2019-02-24] MEDS: LORazepam 0.5 mg Tablet PO (12:19)
--- NOTE | 2019-02-24 12:42 | PC.PHAR ---
Lovenox dosing changed from 30mg Q24h to 40mg Q24h based on pt improving renal function and crcl (83). Will continue to monitor and make changes when appropriate.
--- NOTE | 2019-02-24 13:40 | PC.NURSE ---
PT IV REMOVED, GIVEN DISCHARGE INSTRUCTIONS AND GONE OVER NEW MEDICATIONS, ALL QUESTIONS ANSWERED AND INFORMED HOW TO TAKE EACH MEDICATION, INFORMED HER HOW TO CONTACT THIS NURSE IF ANY QUESTIONS ARISE AFTER SHE LEAVES. PT INSISTED SHE AMBULATED WITH FIANCE TO VEHICLE.
[2019-02-24 13:44] VITALS: RESP 18; TEMP 36.6; O2SAT 97
== END 2019-02-24 13:45 | disposition home or self-care (01) | DRG 389 ==
LOC: ER 10:21 → MEDSURG 17:04
PROVIDERS: Student in an Organized Health Care Education/Training Program; Admitting Provider Student in an Organized Health Care Education/Training Program; Emergency Provider Family Medicine; Family Provider Family Medicine; PCP Nurse Practitioner; Visit Provider Student in an Organized Health Care Education/Training Program
DX: K56.600 Partial intestinal obstruction, unspecified as to cause (principal); K86.1 Other chronic pancreatitis; N17.9 Acute kidney failure, unspecified; K29.20 Alcoholic gastritis without bleeding; F10.20 Alcohol dependence, uncomplicated; K52.9 Noninfective gastroenteritis and colitis, unspecified; G89.29 Other chronic pain; M54.9 Dorsalgia, unspecified; F17.210 Nicotine dependence, cigarettes, uncomplicated; D64.9 Anemia, unspecified
CPT/HCPCS: 12345; 36415; 74176; 74177; 80053; 80307; 81003; 82274; 83036; 83540; 83550; 83605; 83630; 83690; 83986; 84478; 85025; 86677; 87338; 87493; 87505; 89125; 96372; 96375; 99284; G0378; J1650; J1756; J2060; J2270; J2405; J2765; J3010; J7030; Q9967

== ENCOUNTER 2019-02-22 09:38 | Emergency (ER) | payer MEDICAID, SELFPAY | END 2019-02-22 17:37 | disposition admitted as inpatient to this hospital (09) | LOC: ER 03-28 10:40 | PROVIDERS: Emergency Provider Family Medicine; Family Provider Family Medicine; PCP Nurse Practitioner | DX: K56.690 Other partial intestinal obstruction (principal); N17.9 Acute kidney failure, unspecified; F10.20 Alcohol dependence, uncomplicated; K29.20 Alcoholic gastritis without bleeding; D64.9 Anemia, unspecified; B15.9 Hepatitis A without hepatic coma | CPT/HCPCS: 74176; 74177; 80053; 81003; 82274; 83605; 83630; 83690; 83986; 85025; 87493; 87505; 89125; 96365; 96366; 96375; 96376; 99284; 99285; G0378; J2270; J2765; J3010; J7030; Q9967 ==

== ENCOUNTER 2019-03-27 14:15 | Emergency (ER) | payer MEDICAID, SELFPAY ==
[2019-03-27] VITALS (7 sets, daily range): BP systolic 100–133; BP diastolic 57–91; PULSE 84–112; RESP 16–20; TEMP 36.5–36.6; O2SAT 94–100; BMI 29.5
--- NOTE | 2019-03-27 15:20 | PC.NURSE ---
Pt was found on the floor with screaming, She's having a seizure. Pt sitting on the ground, with holding her head. Pt opened her eyes when addressed. Nurses assisted pt back to wheelchair. Pt A&OX4
--- NOTE | 2019-03-27 15:46 | ED_ITS ---
Entered by Madison Avalos, acting as scribe for Dora Engel MD Mar 27, 2019 14:15 HPI - Abdominal Pain General: Chief Complaint: Abdominal Pain Stated Complaint: ABD PAIN Time Seen by Provider: 03/27/19 15:45 Source: patient, family and RN notes reviewed Mode of arrival: ambulatory Limitations: no limitations History of Present Illness: HPI narrative: 48 yo female presents to ED with complaints of L sided abdominal pain. She said the pain began 1 week ago and became a very sharp pain this morning. She has been nauseated and has diarrhea. The patient states intake and movement worsens the pain. She has pancreatitis and drinking makes this worse. She said her last drink was 4 days ago, when she had been drinking a lot of fireball. She said she used to drink a couple of pints of fireball a day. MD elicited complaint: abdominal pain Pertinent past history: other (pancreatitis) Onset (ago): day(s) (today) Pain Consistency: constant Location: LUQ and LLQ Severity: severe Quality: sharp Radiation: L flank Migration to: L flank Exacerbating factors: eating, bowel movement, vomiting and movement Relieving factors: nothing Context: history of similar episodes Associated Symptoms: Reports chills, diarrhea, nausea and vomiting Review of Systems Const: Reports: chills Eyes: Denies: change in vision ENMT: Denies: throat pain or ear pain Card: Denies: chest pain, swelling of feet/ankles, shortness of breath on exertion or shortness of breath when lying down Resp: Denies: shortness of breath or productive cough GI: Reports: nausea, vomiting and diarrhea : Denies: difficulty urinating Musc: Denies: back pain Skin/Breast: Denies: rash Neuro: Denies: headache, numbness in extremities or weakness in extremities Psych: Denies: depression Endo: Denies: excessive thirst Eric/Lymph: Denies: easy bruising PFSH ED PFSH: Social History Smoking and tobacco status: current every day smoker Alcohol intake: current Desire information about alcohol rehabilitation?: No Counseling given: Yes Last alcohol use date: 02/15/19 Physical Exam Const: COMMON NORMALS: no apparent distress, oriented x3 and alert GENERAL APPEARANCE: cooperative and well developed; not in distress and not diaphoretic ORIENTATION/CONSCIOUSNESS: Yes awake, Yes oriented to person, Yes oriented to place and Yes oriented to time HENMT: COMMON NORMALS: normocephalic, head/scalp atraumatic, external ears normal, external nose normal and moist oral mucous membranes HEAD & SCALP: normocephalic and atraumatic FACE & SINUS: normal facial exam; no facial tenderness NOSE: external nose normal EXTERNAL EAR: Yes external ears normal MOUTH: oral and palatal mucosa normal, lip normal and tongue normal TEETH & GINGIVA: no abnormal tooth and associated gingiva THROAT: posterior oropharynx normal and uvula midline Eye: COMMON NORMALS: PERRL and EOMs intact bilaterally PUPIL: Yes PERRL Neck/C-Spine: COMMON NORMALS: full ROM, supple and no JVD GENERAL: Yes normal visual inspection and Yes trachea midline CERVICAL SPINE: No cervical spine tenderness Lymph: LYMPHATIC: no lymphadenopathy noted Chest: COMMONS NORMALS: inspection of chest normal Resp: COMMON NORMALS: normal respiratory effort, no use of accessory muscles and clear to auscultation bilaterally EFFORT & INSPECTION: Yes able to speak in complete sentences and Yes symmetric chest movement AUSCULTATION: clear to auscultation bilaterally Cardio: COMMON NORMALS: no JVD, regular rate, regular rhythm, no gallops, no murmurs and peripheral pulses 2+ throughout RATE: regular rate RHYTHM: regular rhythm PERIPHERAL PULSES: pulses 2+ throughout GI: COMMON NORMALS: normal to inspection, nondistended, normoactive bowel sounds and soft to palpation PALPATION: Yes soft Back/Pelvis: COMMON NORMALS: thoracic and lumbar spine normal to inspection and thoraco-lumbar ROM normal Extremity: COMMON NORMALS: normal to inspection, full ROM and normal capillary refill Neuro: COMMON NORMALS: oriented x3, CN's II-XII intact bilaterally, moves all extremities, no focal motor deficits and no sensory deficits noted SENSORIUM/ORIENTATION: Yes alert, Yes oriented to person, Yes oriented to place and Yes oriented to time Psych: COMMON NORMALS: mental status grossly normal, thought process normal, cooperative, affect normal, speech normal and activity/motor behavior normal SPEECH: Yes normal speech THOUGHT PROCESS: normal thought process Skin: COMMON NORMALS: no rashes or lesions noted and skin turgor normal GENERAL SKIN EXAM: no rashes or lesions noted and turgor normal Course ED course: Patient with continuous complaints of pain - she was given two doses of morphine and was able to sleep. She was able to eat crackers and water and did not have any vomiting. I did not CT her abdomen as clinically it did not seem needed and she has had at least 6 CTs in the past 6 months or so. She asked for ativan for home - I agreed to give her trazadone for sleep as she has used it before with some success. I also gave her some tramadol for pain, and carafate. She tells me that she was treated for the H pylori that was diagnosed recently. She has follow up with her PCP is about 2 weeks. She was not interested in going to an inpatient rehab - she has been going to AA meetings and says that she is serious about not drinking. Vital Signs: Vital signs: Vital Signs Temperature 97.7 F 03/27/19 20:47 Pulse Rate 100 03/27/19 20:47 Respiratory Rate 16 03/27/19 20:47 Blood Pressure 116/87 03/27/19 20:47 Pulse Oximetry 97 03/27/19 20:47 MDM - Abdominal Pain Lab Data: Labs: Lab Results 03/27/19 03/27/19 03/27/19 Range/Units 16:15 16:15 18:33 WBC 4.9 (4.0-10.0) 10^3/ uL RBC 3.30 L (4.1-5.3) 10^6/u L Hgb 12.0 (11.5-15.3) g/dL Hct 36.4 L (37.0-47.0) % MCV 110.3 H (81-99) fL MCH 36.4 H (28.0-34.0) pg MCHC 33.0 (30.0-36.0) g/dL RDW 15.9 H (12.1-15.1) % Plt Count 181 (130-400) 10^3/c mm MPV 10.3 (7.4-10.4) fL Neut % (Auto) 58.7 % Lymph % (Auto) 33.3 % [place] % (Auto) 4.9 % Eos % (Auto) 2.1 % Baso % (Auto) 0.6 % Neut # (Auto) 2.9 (1.8-7.7) 10^3/u L Lymph # (Auto) 1.6 (0.8-4.8) 10^3/u L [place] # (Auto) 0.2 (0.2-0.9) 10^3/u L Eos # (Auto) 0.1 (0.0-0.8) 10^3/u L Baso # (Auto) 0.0 (0.0-0.1) 10^3/u L Nucleated RBC % (a uto) 0 % Nucleated RBCs # 0.0 /100WBC Sodium 139 (136-145) mmol/L Potassium 4.0 (3.5-5.1) mmol/L Chloride 105 (98-107) mmol/L Carbon Dioxide 19 L (22-29) mmol/L Anion Gap 19.0 (5-19) BUN 14 (6-20) mg/dL Creatinine 0.8 (0.5-0.9) mg/dL GFR Calculation 75.9 L (90-130) mL/min Glucose 122 H (65-115) mg/dL Calcium 10.5 (8.5-10.5) mg/dL Total Bilirubin 0.3 (0.15-1.2) mg/dL AST 39 H (0-32) U/L ALT 41 H (0-33) U/L Alkaline Phosphata se 92 (35-105) IU/L Total Protein 8.1 (6.6-8.7) g/dL Albumin 5.0 (3.5-5.2) g/dL Globulin 3.1 (1.3-4.6) g/dL Lipase 81 H (13-60) U/L Urine Color Yellow (Yellow) Urine Appearance Clear (CLEAR) Urine pH 5 (5-7) Ur Specific Gravit y 1.015 (1.005-1.030) Urine Protein Neg (Negative) Urine Glucose (UA) Norm (Normal) Urine Ketones Negative (Negative) Urine Occult Blood Neg (Negative) Urine Nitrate Negative (Negative) Urine Bilirubin Neg (NEGATIVE) Urine Urobilinogen Norm (Negative) mg/dL Ur Leukocyte Susan ase Negative (Negative) Discharge Plan Discharge Patient Disposition: Home, Self-Care Clinical Impression: Alcoholism, Alcoholic gastritis, Chronic pancreatitis Condition: Stable Prescriptions: New sucralfate 1 gram tablet 1 gm PO Q6H 28 Days Qty: 112 RF: 0 trazodone 100 mg tablet 100 mg PO DAILY Qty: 30 RF: 0 No Action gabapentin 800 mg Tablet 800 mg PO TID RF: 0 tramadol 50 mg Tablet 50 mg PO Q6H PRN (Reason: Moderate Pain) Qty: 10 RF: 0 pantoprazole 40 mg Tablet,Delayed Release (Dr/Ec) 40 mg PO BIDWM Qty: 60 RF: 0 thiamine mononitrate (vit B1) [Vitamin B-1 (mononitrate)] 100 mg Tablet 100 mg PO DAILY Qty: 30 RF: 0 ferrous sulfate 325 mg (65 mg iron) tablet,delayed release (DR/EC) 325 mg PO BID Qty: 60 RF: 0 Tylenol Extra Strength 500 mg Tablet 500 mg PO Q6H PRN (Reason: Pain) RF: 0 Discharge Orders: Discharge Order (Routine); Ordered 03/27/19 Ordered By: Dora Engel Referrals: Maggie Serna DPM [Primary Care Provider] - 4-7 days Leslie Magaña MD [Family Provider] - Patient Instructions: Gastritis (ED) Activity Restrictions/Additional Instructions: Take a bland, liquid diet. Do not drink alcohol. Return if fever or if you are not able to tolerate fluids. Interventions: ED Discharge Assessment Last Done: 03/27/19 20:48 Discharge Date/Time: 03/27/19 21:06 Coding Level of Care Code ED Telecommunications Technician for Chg Fwd Exam Problem Focused The documentation recorded by the Robbie rodriges Valerie R, accurately reflects the service I personally performed and the decisions made by Maren vazquez Kathryn L, MD Mar 27, 2019 14:15
[2019-03-27 16:23] LABS: Basophils % 0.6 %; Eosinophils # 0.1 10^3/uL (0.0-0.8); Eosinophils % 2.1 %; Hematocrit 36.4 % (37.0-47.0); Lymphocytes # 1.6 10^3/uL (0.8-4.8); Lymphocytes % 33.3 %; Mean Corpuscular Hemoglobin 36.4 pg (28.0-34.0); Mean Corpuscular Volume 110.3 fL (81-99); Mean Platelet Volume 10.3 fL (7.4-10.4); Monocytes # 0.2 10^3/uL (0.2-0.9); Monocytes % 4.9 %; Neutrophils # 2.9 10^3/uL (1.8-7.7); Neutrophils % 58.7 %; Nucleated Red Blood Cells % 0 %; Platelet Count 181 10^3/cmm (130-400); Red Cell Distribution Width 15.9 % (12.1-15.1); White Blood Count 4.9 10^3/uL (4.0-10.0)
[2019-03-27 16:44] LABS: Alanine Aminotransferase 41 U/L (0-33); Alkaline Phosphatase 92 IU/L (35-105); Aspartate Amino Transferase 39 U/L (0-32); Blood Urea Nitrogen 14 mg/dL (6-20); Calcium 10.5 mg/dL (8.5-10.5); Carbon Dioxide 19 mmol/L (22-29); Chloride 105 mmol/L (98-107); Globulin 3.1 g/dL (1.3-4.6); Glomerular Filtration Rate 75.9 mL/min (90-130); Glucose 122 mg/dL (65-115); Lipase 81 U/L (13-60); Sodium 139 mmol/L (136-145); Total Bilirubin 0.3 mg/dL (0.15-1.2); Total Protein 8.1 g/dL (6.6-8.7)
[2019-03-27] MEDS: ondansetron 2 mg/ML SDV 2 mL 4 MG IVP (16:46)
[2019-03-27] MEDS: morphine 4 mg/mL SDV 1 mL IVP ×2 (16:48→20:10)
--- NOTE | 2019-03-27 17:18 | XR_ITS ---
WS: [id number] Abdomen series: PA CHEST AND 2 VIEWS OF THE ABDOMEN HISTORY: abdominal pain COMPARISON: 12/26/2016 Lungs are clear and well aerated. Heart size is normal. No free air beneath the diaphragm. Increased air throughout the GI tract. No obstructive pattern or free air. No suspicious calcificatio ns. Prior cholecystectomy. Moderate RIGHT convex curvature lumbar spine. XR/XR acute abdomen series [id number] IMPRESSION: 1. Mild increased air throughout the GI tract without obstruction. Mild gastro enteritis should be considered. 2. No pneumonia.
[2019-03-27] MEDS: sodium chloride 0.9% 1,000 ML 999 ML IV (17:21)
[2019-03-27] MEDS: famotidine 20 mg/2 mL INJ 40 MG IVP (17:21)
[2019-03-27] MEDS: LORazepam 2 mg/mL INJ 1 mL 1 MG IVP (18:30)
[2019-03-27 18:49] LABS: Add Urine Microscopic? NO
[2019-03-27 18:52] LABS: Bilirubin Urine Neg (NEGATIVE); Blood Urine Neg (Negative); Glucose Urine UA Norm (Normal); Ketones Urine Negative (Negative); Leukocyte Esterase Urine Negative (Negative); Nitrate Urine Negative (Negative); Protein Urine Neg (Negative); Specific Gravity, Urine 1.015 (1.005-1.030); Urine Appearance Clear (CLEAR); Urine Color Yellow (Yellow); Urobilinogen Urine Norm (Negative); pH Urine 5 (5-7)
--- NOTE | 2019-03-27 19:19 | PC.NURSE ---
Introduced self to patient and initiated vital signs. Pt is sleeping at present time. Per pt states that the reason for the ER visit today is due to left side abdominal pain which radiates to back. Reassured patient of needs and will continue to monitor. Will reevaluate when patient is awake. Pain med not given due to patient being asleep.
--- NOTE | 2019-03-27 20:05 | PC.NURSE ---
Pt provided with crackers and water.
== END 2019-03-27 21:06 | disposition home or self-care (01) ==
PROVIDERS: Physician Assistant; Emergency Provider Emergency Medicine; Family Provider Family Medicine; PCP Nurse Practitioner
DX: K29.20 Alcoholic gastritis without bleeding (principal); K86.1 Other chronic pancreatitis; F10.20 Alcohol dependence, uncomplicated; F17.200 Nicotine dependence, unspecified, uncomplicated
CPT/HCPCS: 36415; 74022; 80053; 81003; 83690; 85025; 96361; 96374; 96375; 99283; 99284; A9270; J2060; J2270; J2405; J3490; J7030

== ENCOUNTER 2019-05-03 14:53 | Emergency (ER) | payer MEDICAID, SELFPAY ==
[2019-05-03 14:59] VITALS: BMI 32.5
[2019-05-03 15:03] VITALS: BP 160/109; PULSE 122; RESP 20; TEMP 36.8; O2SAT 98
[2019-05-03 15:04] VITALS: O2SAT 97
--- NOTE | 2019-05-03 15:06 | ED_ITS ---
Entered by Ashley Rivas, acting as scribe for Rabia Pelayo MD, [facility] [place] HPI - General Adult General: Chief complaint: General Medical Stated complaint: POST OP PAIN Time Seen by Provider: 05/03/19 15:03 Source: patient Mode of arrival: ambulatory Limitations: no limitations History of Present Illness: HPI narrative: 48 yo Female presents to ED with complaint of uncontrolled pain post C4-C5 surgery. Pt states that when she takes her pain medication she throws it up and the nausea medicine isn't helping her keep the medicine down. Pt states that she has also tried to drink some milk and she threw that up as well. Pt states that her surgery was done Sunday and she was discharged Sunday. Pt states that her surgery was done at [facility]. Pt states that she has been throwin up for 2 days. Pt's caregiver states that he has heard gurgling coming from the patient's throat when she is sleeping. complaint: Uncontrolled pain, Vomiting Onset (ago): day(s) (2) Location: neck Radiation: back Severity scale (1-10): 9 Quality: stabbing, aching, sharp and dull Pain Consistency: constant Relieving factors: none Exacerbating factors: other (vomiting) Associated symptoms: Reports chest pain, fevers/chills, nausea and vomiting; Deny dyspnea, headache(s), rash or palpitations Treatments prior to arrival: none Review of Systems General: Reports: 10 or more systems reviewed and unremarkable except in HPI and below Const: Reports: chills; Denies: fever or body aches Eyes: Denies: change in vision or blurry vision ENMT: Denies: throat pain, enlarged tonsils, painful swallowing, hoarseness, mouth pain or swelling of lips/tongue Card: Reports: chest pain; Denies: palpitations, irregular heart rhythm, edema or swelling of feet/ankles Resp: Denies: shortness of breath, productive cough or non-productive cough GI: Reports: nausea and vomiting : Denies: flank pain, difficulty urinating, painful urination, urinary frequency, urinary urgency or urinary hesitancy Musc: Denies: neck pain, back pain or extremity swelling Skin/Breast: Denies: rash, itching or redness Neuro: Denies: headache, numbness in extremities or weakness in extremities Endo: Denies: excessive urination, excessive thirst or tired all the time PFSH ED PFSH: Medical History Alcoholism Anemia Carpal tunnel syndrome Chronic back pain Chronic pancreatitis Cirrhosis Enteritis GERD (gastroesophageal reflux disease) H. pylori infection Hepatitis A Sciatica Surgical History H/O rotator cuff surgery H/O: hysterectomy History of appendectomy History of cholecystectomy Social History Smoking and tobacco status: current every day smoker Alcohol intake: current Desire information about alcohol rehabilitation?: No Counseling given: Yes Last alcohol use date: 02/15/19 Physical Exam Const: COMMON NORMALS: no apparent distress, average body habitus, oriented x3, no limitations, healthy appearing, alert and well nourished HENMT: COMMON NORMALS: normocephalic, head/scalp atraumatic and moist oral mucous membranes HEAD & SCALP: normocephalic and atraumatic Eye: COMMON NORMALS: PERRL, EOMs intact bilaterally, conjunctivae normal and no scleral icterus CONJUNCTIVA: Yes conjunctivae normal PUPIL: Yes PERRL Neck/C-Spine: COMMON NORMALS: full ROM, supple, no meningeal signs, no JVD and no carotid bruits OTHER: Postop surgical scar anteriorly, well apposed. Healing well. Clean dry and intact. No signs of an infection. Mild swelling around the incision site. Tenderness around the incision site Chest: COMMONS NORMALS: inspection of chest normal and palpation of chest normal Resp: COMMON NORMALS: normal respiratory effort, no retractions, no use of accessory muscles, clear to auscultation bilaterally and percussion normal AUSCULTATION: clear to auscultation bilaterally PERCUSSION: percussion normal Cardio: COMMON NORMALS: no JVD, regular rate, regular rhythm, S1 normal heart sound, S2 normal heart sound, no gallops, no clicks, no murmurs, no rub and peripheral pulses 2+ throughout RATE: regular rate RHYTHM: regular rhythm HEART SOUNDS: S1 normal and S2 normal PERIPHERAL PULSES: pulses 2+ throughout GI: COMMON NORMALS: normal to inspection, nondistended, normoactive bowel sounds, soft to palpation, non-tender, no hepatosplenomegaly, no masses and no bruits PALPATION: Yes soft and Yes no hepatosplenomegaly : COMMON NORMALS: Yes no CVA tenderness BLADDER/KIDNEY EXAM: Yes no CVA tenderness Back/Pelvis: COMMON NORMALS: no CVA tenderness Extremity: COMMON NORMALS: normal to inspection, full ROM, normal capillary refill, no calf tenderness and no pedal edema Neuro: COMMON NORMALS: oriented x3 SENSORIUM/ORIENTATION: Yes alert MENINGEAL SIGNS: Yes no meningeal signs Skin: COMMON NORMALS: no rashes or lesions noted, no wounds, skin turgor normal, no jaundice, no petechiae and no mottling GENERAL SKIN EXAM: no rashes or lesions noted and turgor normal Course Reevaluation(s): Reevaluation #1: Discussed her imaging findings with her. Postop changes only, no signs of complications from the surgery. Has inflammatory changes. We will discharge her home, to continue pain medication. She voiced understanding and is in agreement with the plan Time: 17:02 Vital Signs: Vital signs: Vital Signs Temperature 98.3 F 05/03/19 15:03 Pulse Rate 122 H 05/03/19 15:03 Respiratory Rate 20 H 05/03/19 15:03 Blood Pressure 160/109 05/03/19 15:03 Pulse Oximetry 97 05/03/19 15:04 MDM - General Adult MDM Narrative: Medical decision making narrative: 48-year-old patient who had ACDF of C5-C7 a few days ago. Patient states that she is unable to keep her pain medication down as they are causing her nausea and vomiting. CT scan of her neck was negative here today. She is discharged home on a different antiemetic and milder narcotic pain medicine. Medical Records: Attestation: I reviewed the patient's medical records. Imaging Data^: CT Neck: Radiologist's impression: [address] [address] [address] Scan Report Signed Patient: Melissa Portillo #: [id number] : 1970Acct#:[id number] Age/Sex: 48 / FADM Date: 05/03/19 Loc: ERRoom/Bed: Attending Dr: Ordering Provider/Ordering MD: Rabia Pelayo MD, [facility] [place] Date of Service: 05/03/19 Procedure(s): CT neck w con* [id number] Accession Number(s): [id number] Report Number: [id number] PROCEDURE INFORMATION: Exam: CT Neck With Contrast Exam date and time: 05/03/2019 3:35 PM Age: 48 years old Clinical indication: Neck pain and throat pain; Prior surgery; Surgery date: 3-7 days post-operative; Surgery type: Acdf; Patient HX: C/O neck/throat pain; Additional info: S/P acdf c5-c7. C/O post op pain TECHNIQUE: Imaging protocol: Computed tomography images of the neck with intravenous contrast. Total DLP: 612.17 mGy-cm Radiation optimization: All CT scans at this facility use at least one of these dose optimization techniques: automated exposure control; mA and/or kV adjustment per patient size (includes targeted exams where dose is matched to clinical indication); or iterative reconstruction. Contrast material: OMNI 300; Contrast volume: 95 ml; Contrast route: 20G; COMPARISON: CT Cervical Spine wo* [id number] 07/10/2016 11:25 PM FINDINGS: Nasopharynx: Unremarkable. Oropharynx: Unremarkable. No significant tonsillar enlargement. Hypopharynx: Unremarkable. Larynx: Unremarkable. Normal epiglottis. Retropharyngeal space: Unremarkable. Submandibular/Parotid glands: Normal. Glands are normal in size. Thyroid: Normal. No enlarged or calcified nodules. Lymph nodes: Unremarkable. No lymphadenopathy. Trachea: Visualized trachea is unremarkable. Lungs: Mild groundglass opacities consistent with mild allergic pneumonitis, infectious pneumonitis, atypical pulmonary edema and/or volume overload. Bones/joints: Interval appearance of anterior metallic fixation of C5, C6 and C7 with radiopaque disc spacers. Soft tissues: Mild soft tissue swelling in the prevertebral soft tissues with no obvious prevertebral/retropharyngeal abscess or soft tissue emphysema. Possible postoperative inflammation. CT/CT neck w con* [id number] IMPRESSION: 1. Interval appearance of anterior metallic fixation of C5, C6 and C7 with radiopaque disc spacers. 2. Mild soft tissue swelling in the prevertebral soft tissues with no obvious prevertebral/retropharyngeal abscess or soft tissue emphysema. Possible postoperative inflammation. 3. Mild groundglass opacities consistent with mild allergic pneumonitis, infectious pneumonitis, atypical pulmonary edema and/or volume overload. Radiation Dose CTDIVOL = (mGy): DLP = 612.17 (mGy-cm) Dictated By:Aditya Godwin MD Signed By:Aditya Godwinigned Date/Time:05/03/191611 DD/ 10 Discharge Plan Discharge Patient Disposition: Home, Self-Care Clinical Impression: Post-op pain Condition: Stable Prescriptions: New Reglan 10 mg tablet 10 mg PO Q6H PRN (Reason: nausea and vomiting) Qty: 20 RF: 0 [place] 5-325 mg tablet 1 tab PO Q6H PRN (Reason: Pain) Qty: 10 RF: 0 Continued gabapentin 800 mg Tablet 600 mg PO TID RF: 0 pantoprazole 40 mg Tablet,Delayed Release (Dr/Ec) 40 mg PO BIDWM Qty: 60 RF: 0 thiamine mononitrate (vit B1) [Vitamin B-1 (mononitrate)] 100 mg Tablet 100 mg PO DAILY Qty: 30 RF: 0 ferrous sulfate 325 mg (65 mg iron) tablet,delayed release (DR/EC) 325 mg PO BID Qty: 60 RF: 0 acetaminophen [Tylenol Extra Strength] 500 mg Tablet 500 mg PO Q6H PRN (Reason: Pain) RF: 0 No Action Carafate 1 gram Tablet 1 g PO TID RF: 0 oxycodone-acetaminophen 10-325 mg Tablet 1 tab PO Q6H PRN (Reason: Pain) RF: 0 diazepam 10 mg Tablet 10 mg PO Q6H PRN (Reason: Anxiety) RF: 0 trazodone 100 mg tablet 100 mg PO BEDTIME RF: 0 Discharge Orders: Discharge Order (Routine); Ordered 05/03/19 Ordered By: Rabia Pelayo Referrals: Maggie Serna DPM [Primary Care Provider] - 1-3 days Leslie Magaña MD [Family Provider] - Activity Restrictions/Additional Instructions: Return for any new or worsening symptoms. Take the nausea medicine as needed for nausea. Take the pain medicine as needed for pain. Follow-up with your primary care provider within 1 week and with the surgeon as scheduled. Drink plenty of fluids to keep well-hydrated Coding Level of Care Code ED Weight Analyst for Chg Fwd Exam Comprehensive The documentation recorded by the scribe, [place],Ashley, accurately reflects the service I personally performed and the decisions made by me, Rabia Pelayo MD, [facility] [place] May 03, 2019 14:53
--- NOTE | 2019-05-03 15:22 | CTR_ITS ---
PROCEDURE INFORMATION: Exam: CT Neck With Contrast Exam date and time: 05/03/2019 3:35 PM Age: 48 years old Clinical indication: Neck pain and throat pain; Prior surgery; Surgery date: 3-7 days post-operative; Surgery type: Acdf; Patient HX: C/O neck/throat pain; Additional info: S/P acdf c5-c7. C/O post op pain TECHNIQUE: Imaging protocol: Computed tomography images of the neck with intravenous contrast. Total DLP: 612.17 mGy-cm Radiation optimization: All CT scans at this facility use at least one of these dose optimization techniques: automated exposure control; mA and/or kV adjustment per patient size (includes targeted exams where dose is matched to clinical indication); or iterative reconstruction. Contrast material: OMNI 300; Contrast volume: 95 ml; Contrast route: 20G; COMPARISON: CT Cervical Spine wo* [id number] 07/10/2016 11:25 PM FINDINGS: Nasopharynx: Unremarkable. Oropharynx: Unremarkable. No significant tonsillar enlargement. Hypopharynx: Unremarkable. Larynx: Unremarkable. Normal epiglottis. Retropharyngeal space: Unremarkable. Submandibular/Parotid glands: Normal. Glands are normal in size. Thyroid: Normal. No enlarged or calcified nodules. Lymph nodes: Unremarkable. No lymphadenopathy. Trachea: Visualized trachea is unremarkable. Lungs: Mild groundglass opacities consistent with mild allergic pneumonitis, infectious pneumonitis, atypical pulmonary edema and/or volume overload. Bones/joints: Interval appearance of anterior metallic fixation of C5, C6 and C7 with radiopaque disc spacers. Soft tissues: Mild soft tissue swelling in the prevertebral soft tissues with no obvious prevertebral/retropharyngeal abscess or soft tissue emphysema. Possible postoperative inflammation. CT/CT neck w con* [id number] IMPRESSION: 1. Interval appearance of anterior metallic fixation of C5, C6 and C7 with radiopaque disc spacers. 2. Mild soft tissue swelling in the prevertebral soft tissues with no obvious prevertebral/retropharyngeal abscess or soft tissue emphysema. Possible postoperative inflammation. 3. Mild groundglass opacities consistent with mild allergic pneumonitis, infectious pneumonitis, atypical pulmonary edema and/or volume overload. Radiation Dose CTDIVOL = (mGy): DLP = 612.17 (mGy-cm)
[2019-05-03] MEDS: metoclopramide 5 mg/mL SDV 2 mL 10 MG IVP (15:43)
[2019-05-03] MEDS: fentaNYL 50 mcg/mL INJ 2mL IVP (15:44)
[2019-05-03] MEDS: iohexol 300 mg/mL 100 mL Btl IV (15:51)
[2019-05-03] MEDS: fentaNYL 50 mcg/mL INJ 2mL 25 MCG IVP (17:10)
[2019-05-03 17:26] VITALS: BP 124/87; PULSE 72; RESP 18; O2SAT 98
== END 2019-05-03 17:27 | disposition home or self-care (01) ==
PROVIDERS: Emergency Provider Family Medicine; Family Provider Family Medicine; PCP Nurse Practitioner
DX: G89.18 Other acute postprocedural pain (principal); M54.2 Cervicalgia; M54.9 Dorsalgia, unspecified; F17.200 Nicotine dependence, unspecified, uncomplicated; Z98.1 Arthrodesis status
CPT/HCPCS: 12345; 70491; 96374; 96375; 96376; 99282; 99283; J2765; J3010; Q9967

== ENCOUNTER 2019-05-07 01:30 | Emergency (ER) | payer MEDICAID, SELFPAY ==
[2019-05-07 01:31] VITALS: BP 129/96; PULSE 124; RESP 20; TEMP 36.5; O2SAT 98; BMI 32.1
--- NOTE | 2019-05-07 01:45 | ED_ITS ---
HPI - Wound/Laceration General: Chief Complaint: Wound/Laceration Stated Complaint: Neck pain Time Seen by Provider: 05/07/19 01:32 History of Present Illness: HPI narrative: Patient is a 48-year-old female comes into the ED with postsurgical site pain and surgical site wound opening up.. Patient had a surgery on her neck a week ago. Patient states that she she tripped and something snapped at her surgical site causing it to open. Patient reports pain in neck. Patient was seen here for postop pain 4 days ago. Patient was discharged from the ED with a prescription for 10 hydrocodone tabs. Patient states she was unable to get prescription filled at pharmacy so she has not taken anything for pain currently. Patient was requesting that I send multiple hydrocodone tabs home with her from the ED. Associated symptoms: Denies chills, fever(s), nausea or vomiting Review of Systems Const: Denies: fever, chills or fatigue Eyes: Denies: change in vision or eye discomfort ENMT: Denies: throat pain, painful swallowing, nasal discharge or nasal congestion Card: Denies: chest pain, palpitations, edema, swelling of feet/ankles, s hortness of breath on exertion or shortness of breath when lying down Resp: Denies: shortness of breath, productive cough or non-productive cough GI: Denies: abdominal pain, nausea, vomiting, diarrhea, constipation or blood in stool : Denies: flank pain, painful urination or blood in urine Musc: Reports: neck pain; Denies: back pain or extremity swelling Skin/Breast: Reports: surgical incision (healing up, but worried it opened up today); Denies: rash or new lesion Neuro: Denies: headache, numbness in extremities or weakness in extremities PFS ED PFSH: Medical History Alcoholism Anemia Carpal tunnel syndrome Chronic back pain Chronic pancreatitis Cirrhosis Enteritis GERD (gastroesophageal reflux disease) H. pylori infection Hepatitis A Sciatica Surgical History H/O rotator cuff surgery H/O: hysterectomy History of appendectomy History of cholecystectomy Social History Smoking and tobacco status: current every day smoker Alcohol intake: current Desire information about alcohol rehabilitation?: No Counseling given: Yes Last alcohol use date: 02/15/19 Physical Exam Narrative: EXAM NARRATIVE: Patient is a 48-year-old female showing no signs of acute distress or acute respiratory distress. Const: COMMON NORMALS: oriented x3 HENMT: COMMON NORMALS: normocephalic HEAD & SCALP: normocephalic MOUTH: oral and palatal mucosa normal THROAT: posterior oropharynx normal and uvula midline Neck/C-Spine: COMMON NORMALS: supple GENERAL: Yes normal visual inspection Resp: COMMON NORMALS: normal respiratory effort, no retractions, no use of accessory muscles and clear to auscultation bilaterally AUSCULTATION: clear to auscultation bilaterally Cardio: COMMON NORMALS: regular rate, regular rhythm, S1 normal heart sound, S2 normal heart sound, no gallops, no clicks, no murmurs and peripheral pulses 2+ throughout RATE: regular rate RHYTHM: regular rhythm HEART SOUNDS: S1 normal and S2 normal PERIPHERAL PULSES: pulses 2+ throughout GI: COMMON NORMALS: normal to inspection, nondistended, normoactive bowel sounds, soft to palpation, non-tender and no masses PALPATION: Yes soft : COMMON NORMALS: Yes no CVA tenderness BLADDER/KIDNEY EXAM: Yes no CVA tenderness Back/Pelvis: COMMON NORMALS: no CVA tenderness Extremity: COMMON NORMALS: normal to inspection Neuro: COMMON NORMALS: oriented x3 and moves all extremities Skin: NARRATIVE SKIN EXAM: Surgical site on Left anterior aspect of neck is not actively bleeding and showing no signs of infection such as erythema, warmth or drainage. Small section of the surgical site the superficial skin layer is partially open. The deep layers are closed and not open. WOUNDS: Yes surgical site ( No erythema, warmth or drainage. Small spot superficial skin open.) Details: size (3-4cm long) and no odor Procedures Laceration Laceration 1: Site: neck (Post op surgical site-no active bleeding. Part of superficial skin layer was open. Deep part of surgical site closed.) Size (cm): 4 (Probably 1.5 cm of the 4 cm surgical incision had some wound dehiscence of the superficial layer of skin.) Description: linear (With no surrounding erythema or warmth or drainage.) and clean Depth: simple, single layer Pre-repair: irrigated extensively (Cleaned with normal saline and then the skin was cleaned with iodine swab.) Skin layer closed with: other (3 Steri-Strips were placed to help close up superficial skin layer of surgery site.) Course Vital Signs: Vital signs: Vital Signs Temperature 97.7 F 05/07/19 01:31 Pulse Rate 124 H 05/07/19 01:31 Respiratory Rate 20 H 05/07/19 01:31 Blood Pressure 129/96 05/07/19 01:31 Pulse Oximetry 98 05/07/19 01:31 MDM - Wound/Laceration MDM Narrative: Medical decision making narrative: Patient is a 48-year-old female who comes in to the ED with postop pain and surgical site wound dehiscence. Surgical site she is showing no signs of infection such as erythema, warmth or drainage. Physical exam shows that part of the superficial skin layer was not completely closed. The deep layers were closed. The nurses washed the surgical site with normal saline and then it was cleaned with Iodine swabs. Steri-Strips were then placed over the section of the surgical site and that helped close the wound and brought the 2 superficial layers of skin closer together for better healing. Nurse then covered it with 4x4 gauze and placed tagaderm over it to seal surgical site. There was no active bleeding. Patient was discharged and told to follow-up with surgeon for postop pain management. Discharge Plan Discharge Patient Disposition: Home, Self-Care Clinical Impression: Post-op pain Postoperative wound dehiscence Qualifiers: Encounter type: subsequent encounter Qualified Code(s): T81.31XD - Disruption of external operation (surgical) wound, not elsewhere classified, subsequent encounter Condition: Stable Prescriptions: No Action gabapentin 800 mg Tablet 600 mg PO TID RF: 0 pantoprazole 40 mg Tablet,Delayed Release (Dr/Ec) 40 mg PO BIDWM Qty: 60 RF: 0 thiamine mononitrate (vit B1) [Vitamin B-1 (mononitrate)] 100 mg Tablet 100 mg PO DAILY Qty: 30 RF: 0 ferrous sulfate 325 mg (65 mg iron) tablet,delayed release (DR/EC) 325 mg PO BID Qty: 60 RF: 0 acetaminophen [Tylenol Extra Strength] 500 mg Tablet 500 mg PO Q6H PRN (Reason: Pain) RF: 0 Reglan 10 mg tablet 10 mg PO Q6H PRN (Reason: nausea and vomiting) Qty: 20 RF: 0 Ledbetter 5-325 mg tablet 1 tab PO Q6H PRN (Reason: Pain) Qty: 10 RF: 0 Carafate 1 gram Tablet 1 g PO TID RF: 0 oxycodone-acetaminophen 10-325 mg Tablet 1 tab PO Q6H PRN (Reason: Pain) RF: 0 diazepam 10 mg Tablet 10 mg PO Q6H PRN (Reason: Anxiety) RF: 0 trazodone 100 mg tablet 100 mg PO BEDTIME RF: 0 Discharge Orders: Discharge Order (Routine); Ordered 05/07/19 Ordered By: Lance Benson Referrals: Maggie Serna DPM [Primary Care Provider] - Leslie Magaña MD [Family Provider] - Discharge Diet: Regular Discharge Activity: Resume usual activity Patient Instructions: Surgical Site Infections (ED), Wound Dehiscence (ED), Post Operative Pain Activity Restrictions/Additional Instructions: Leave Steri-Strips on and let them fall off on their own. Follow-up with surgeon to discuss postop pain and pain medication management. Get the previously prescribed hydrocodone prescription (Written by Dr. Pelayo) filled to help with pain management. Make sure to keep surgical site area clean daily to help prevent any possible infection. Coding Level of Care Code ED Hand Method Lasting Machine Operator for Zacharyg Fwd Exam Comprehensive
[2019-05-07] MEDS: HYDROcodone-acetaminophen 7.5-325 mg Tablet 1 TAB PO (02:07)
[2019-05-07 02:50] VITALS: BP 124/88; PULSE 66; RESP 18; O2SAT 98
== END 2019-05-07 02:56 | disposition home or self-care (01) ==
PROVIDERS: Emergency Provider Physician Assistant; Family Provider Family Medicine; PCP Nurse Practitioner
DX: T81.31XA Disruption of external operation (surgical) wound, not elsewhere classified, initial encounter (principal); G89.18 Other acute postprocedural pain; M54.2 Cervicalgia; F17.200 Nicotine dependence, unspecified, uncomplicated; W18.40XA Slipping, tripping and stumbling without falling, unspecified, initial encounter
CPT/HCPCS: 12002; 12345; 99281; 99282

== ENCOUNTER 2019-06-07 23:23 | Emergency (ER) | payer MEDICAID, SELFPAY ==
--- NOTE | 2019-06-07 23:25 | ED_ITS ---
HPI - Chest Pain General: Chief Complaint: Chest Pain Stated Complaint: CHEST PAIN Time Seen by Provider: 06/07/19 23:25 Source: patient Mode of arrival: ambulatory Limitations: no limitations History of Present Illness: HPI narrative: Patient comes in today with back pain, neck pain and chest pain. Patient states the pain started 2 days ago and she has been unable to control at home with Tylenol. Patient then has started drinking alcohol to help control her pain. Patient does have a history of alcoholism. Patient did have recent surgery on the neck for a fusion of the disc or other in the vertebral disc surgery. Patient appears well. Patient does appear intoxicated. Review of Systems General: Reports: 10 or more systems reviewed and unremarkable except in HPI and below Card: Reports: chest pain Musc: Reports: neck pain and back pain PFSH ED PFSH: Social History Smoking and tobacco status: current every day smoker Alcohol intake: current Desire information about alcohol rehabilitation?: No Counseling given: Yes Last alcohol use date: 02/15/19 Physical Exam Const: COMMON NORMALS: no apparent distress and oriented x3 GENERAL APPEARANCE: cooperative HENMT: COMMON NORMALS: normocephalic, TM's normal bilaterally and external nose normal HEAD & SCALP: normal to inspection and normocephalic NOSE: external nose normal TYMPANIC MEMBRANE: TM's normal bilaterally MOUTH: oral and palatal mucosa normal THROAT: posterior oropharynx normal Eye: GENERAL EYE: normal appearance of both eyes Neck/C-Spine: COMMON NORMALS: full ROM Lymph: LYMPHATIC: no lymphadenopathy noted Chest: COMMONS NORMALS: inspection of chest normal Resp: COMMON NORMALS: normal respiratory effort EFFORT & INSPECTION: Yes able to speak in complete sentences Cardio: COMMON NORMALS: regular rate and regular rhythm RATE: regular rate RHYTHM: regular rhythm GI: COMMON NORMALS: non-tender : COMMON NORMALS: Yes no CVA tenderness BLADDER/KIDNEY EXAM: Yes no CVA tenderness Back/Pelvis: COMMON NORMALS: no CVA tenderness and thoracic and lumbar spine normal to inspection Extremity: COMMON NORMALS: normal to inspection Neuro: COMMON NORMALS: oriented x3 and moves all extremities Psych: COMMON NORMALS: mental status grossly normal and cooperative Skin: COMMON NORMALS: no rashes or lesions noted GENERAL SKIN EXAM: no rashes or lesions noted Course Vital Signs: Vital signs: Vital Signs Temperature 100.2 F H 06/07/19 23:37 Pulse Rate 112 H 06/07/19 23:48 Respiratory Rate 16 06/07/19 23:48 Blood Pressure 152/106 06/07/19 23:48 Pulse Oximetry 98 06/07/19 23:48 MDM - Chest Pain MDM Narrative: Medical decision making narrative: Patient came in for complaints of neck and back pain along with chest discomfort. EKG showed sinus tachycardia, vital signs otherwise was normal. Lungs are clear to auscultation. Patient moves all extremities well. Patient did have alcohol on board. No signs of serious illness or injury was noted. Patient signed out AMA prior to completion of work-up with laboratory values. Patient was advised before leaving that she may have some serious illness going on without the completion of evaluation she may put herself at risk for injury and . Patient wished to leave anyway and left. Lab Data: Labs: Lab Results 06/07/19 06/07/19 Range/Units 23:21 23:21 Urine Color Yellow (Yellow) Urine Appearance Clear (CLEAR) Urine pH 6.5 (5-7) Ur Specific Gravit y 1.005 (1.005-1.030) Urine Protein Neg (Negative) Urine Glucose (UA) Norm (Normal) Urine Ketones Negative (Negative) Urine Blood Neg (Negative) Urine Nitrate Negative (Negative) Urine Bilirubin Neg (NEGATIVE) Urine Urobilinogen Norm (Negative) mg/dL Ur Leukocyte Susan ase Negative (Negative) Urine Opiates Scre en Negative (Negative) ng/mL Ur Barbiturates Sc reen Negative (Negative) ng/mL Ur Phencyclidine S crn Negative (Negative) ng/mL Ur Amphetamines Sc reen Negative (Negative) ng/mL U Benzodiazepines Scrn Positive H (Negative) ng/mL Urine Cocaine Scre en Negative (Negative) ng/mL U Marijuana (THC) Screen Negative (Negative) ng/mL EKG Data^: EKG 1: Attestation: I personally reviewed and interpreted this EKG as follows: (2337, sinus tach, rate 123 bpm and regular, no ST elevation, no Ectopy) Discharge Plan Discharge Patient Disposition: Left Against Medical Advice Clinical Impression: Atypical chest pain, Alcoholism Condition: Stable Prescriptions: No Action gabapentin 800 mg Tablet 600 mg PO TID RF: 0 pantoprazole 40 mg Tablet,Delayed Release (Dr/Ec) 40 mg PO BIDWM Qty: 60 RF: 0 thiamine mononitrate (vit B1) [Vitamin B-1 (mononitrate)] 100 mg Tablet 100 mg PO DAILY Qty: 30 RF: 0 ferrous sulfate 325 mg (65 mg iron) tablet,delayed release (DR/EC) 325 mg PO BID Qty: 60 RF: 0 acetaminophen [Tylenol Extra Strength] 500 mg Tablet 500 mg PO Q6H PRN (Reason: Pain) RF: 0 Reglan 10 mg tablet 10 mg PO Q6H PRN (Reason: nausea and vomiting) Qty: 20 RF: 0 Tebbetts 5-325 mg tablet 1 tab PO Q6H PRN (Reason: Pain) Qty: 10 RF: 0 Carafate 1 gram Tablet 1 g PO TID RF: 0 oxycodone-acetaminophen 10-325 mg Tablet 1 tab PO Q6H PRN (Reason: Pain) RF: 0 diazepam 10 mg Tablet 10 mg PO Q6H PRN (Reason: Anxiety) RF: 0 trazodone 100 mg tablet 100 mg PO BEDTIME RF: 0 Discharge Orders: Discharge Order (Routine); Ordered 06/08/19 Ordered By: Angus Chambers Referrals: Maggie Serna DPM [Primary Care Provider] - Leslie Magaña MD [Family Provider] - Coding Level of Care Code ED Watershed Manager for g Fwd Exam Comprehensive
--- NOTE | 2019-06-07 23:26 | ECG_ITS ---
Measurements Intervals [place] Rate: 123 P: 75 PA: 153 QRS: 71 QRSD: 79 T: 50 QT: 302 QTc: 433 SINUS TACHYCARDIA ABNORMAL RHYTHM ECG Compared to ECG 12/05/2018 10:35:28 Sinus rhythm no longer present Electronically Signed On 06-08-2019 20:22:23 CDT by Dena Thomas M.D. [email or web address]
--- NOTE | 2019-06-07 23:27 | XRR_ITS ---
PROCEDURE INFORMATION: Exam: XR Chest, 1 View Exam date and time: 06/07/2019 11:28 PM Age: 48 years old Clinical indication: Chest pain; Type not specified TECHNIQUE: Imaging protocol: XR of the chest Views: 1 view. COMPARISON: CR Chest 1 [place] [id number] 12/05/2018 7:48 AM FINDINGS: Cardiomediastinal silhouette contour is within normal limits. Lungs clear bilaterally. No visible pneumothorax or pleural effusion. Pulmonary vasculature within normal limits. Healed fractures noted at the right mid thorax laterally. XR/XR chest 1V portable [id number] IMPRESSION: 1. No radiographic findings of acute cardiopulmonary disease.
--- NOTE | 2019-06-07 23:35 | PC.NURSE ---
Patient states her chest has been hurting for three days in the sternal area. Patient states that her left arm and back have been hurting also. Patient states that the pain got worse today.
[2019-06-07 23:37] VITALS: BP 144/118; PULSE 119; RESP 18; TEMP 37.9; O2SAT 100
[2019-06-07 23:48] VITALS: BP 152/106; PULSE 112; RESP 16; O2SAT 98
[2019-06-08 00:03] LABS: Add Urine Microscopic? NO
[2019-06-08 00:09] LABS: Bilirubin Urine Neg (NEGATIVE); Blood Urine Neg (Negative); Glucose Urine UA Norm (Normal); Ketones Urine Negative (Negative); Leukocyte Esterase Urine Negative (Negative); Nitrate Urine Negative (Negative); Protein Urine Neg (Negative); Specific Gravity, Urine 1.005 (1.005-1.030); Urine Appearance Clear (CLEAR); Urine Color Yellow (Yellow); Urobilinogen Urine Norm (Negative); pH Urine 6.5 (5-7)
[2019-06-08 00:18] LABS: Amphetamines Screen Urine Negative (Negative); Barbiturates Screen Urine Negative (Negative); Benzodiazepines Screen Urine Positive (Negative); Cocaine Screen Urine Negative (Negative); Opiate Screen Urine Negative (Negative); PCP Screen Urine Negative (Negative); THC Screen Urine Negative (Negative)
== END 2019-06-08 00:11 | disposition left against medical advice (07) ==
LOC: ER 06-08 00:23
PROVIDERS: Emergency Provider Nurse Practitioner Family; Family Provider Family Medicine; PCP Nurse Practitioner
DX: R07.89 Other chest pain (principal); F10.20 Alcohol dependence, uncomplicated; F17.210 Nicotine dependence, cigarettes, uncomplicated
CPT/HCPCS: 12345; 71045; 80306; 81003; 93005; 99283

== ENCOUNTER 2019-06-08 06:21 | Emergency (ER) | payer MEDICAID, SELFPAY ==
--- NOTE | 2019-06-08 06:33 | XRR_ITS ---
PROCEDURE INFORMATION: Exam: XR Chest, 1 View Exam date and time: 06/08/2019 6:35 AM Age: 48 years old Clinical indication: Left-sided chest pain; Additional info: Cough TECHNIQUE: Imaging protocol: XR of the chest Views: 1 view. COMPARISON: CR (CHEST, ) 06/07/2019 11:48 PM FINDINGS: Cardiomediastinal silhouette contour is within normal limits. Lungs clear bilaterally. No visible pneumothorax or pleural effusion. Pulmonary vasculature within normal limits. XR/XR chest 1V portable [id number] IMPRESSION: 1. No radiographic findings of acute cardiopulmonary disease.
--- NOTE | 2019-06-08 06:34 | ECG_ITS ---
Measurements Intervals [place] Rate: 109 P: 46 W[place]: 128 QRS: 59 QRSD: 80 T: 39 QT: 317 QTc: 428 SINUS TACHYCARDIA ABNORMAL RHYTHM ECG Compared to ECG 12/05/2018 10:35:28 Sinus rhythm no longer present Electronically Signed On 06-08-2019 20:23:48 CDT by Dena Thomas M.D. [email or web address]
[2019-06-08 06:40] VITALS: PULSE 121; TEMP 36.9; O2SAT 99; BMI 29.2
--- NOTE | 2019-06-08 06:40 | CTR_ITS ---
PROCEDURE INFORMATION: Exam: CT Head Without Contrast Exam date and time: 06/08/2019 6:43 AM Age: 48 years old Clinical indication: Pain; Headache; Additional info: Brewre/ams TECHNIQUE: Imaging protocol: Computed tomography of the head without contrast. Total DLP: 695.51 mGy-cm Radiation optimization: All CT scans at this facility use at least one of these dose optimization techniques: automated exposure control; mA and/or kV adjustment per patient size (includes targeted exams where dose is matched to clinical indication); or iterative reconstruction. COMPARISON: CT head wo con* [id number] 10/13/2017 6:54 PM FINDINGS: The ventricular system is within normal limits for size and configuration. There are no areas of abnormally increased or decreased brain parenchymal attenuation. No abnormal intra-axial or extra-axial fluid collections are identified. There is no midline shift. No evidence of intracranial hemorrhage. The visualized bones are unremarkable. CT/CT head wo con* [id number] IMPRESSION: 1. No acute intracranial abnormality identified. Radiation Dose CTDIVOL = (mGy): DLP = 695.51 (mGy-cm)
--- NOTE | 2019-06-08 06:40 | CTR_ITS ---
PROCEDURE INFORMATION: Exam: CT Cervical Spine Without Contrast Exam date and time: 06/08/2019 6:43 AM Age: 48 years old Clinical indication: Neck pain; Prior surgery; Surgery date: 6+ months; Surgery type: Neck fusion TECHNIQUE: Imaging protocol: Computed tomography images of the cervical spine without contrast. Total DLP: 433.17 mGy-cm Radiation optimization: All CT scans at this facility use at least one of these dose optimization techniques: automated exposure control; mA and/or kV adjustment per patient size (includes targeted exams where dose is matched to clinical indication); or iterative reconstruction. COMPARISON: CT Cervical Spine wo* [id number] 07/10/2016 11:25 PM FINDINGS: There is mild straightening of the normal cervical lordosis. This may be positional or due to muscle spasm. There is otherwise normal alignment of the cervical spine. Status post anterior surgical fusion of C5, C6, and C7 with prosthetic discs. No fractures or dislocations identified. Vertebral body heights and intervertebral disk spaces are well maintained throughout. No prevertebral soft tissue swelling identified. The bony spinal canal is patent. CT/CT cervical spin wo con* [id number] IMPRESSION: 1. No fractures or dislocations identified. Radiation Dose CTDIVOL = (mGy): DLP = 433.17 (mGy-cm)
--- NOTE | 2019-06-08 06:58 | PC.NURSE ---
Report given to Berna ABREU
[2019-06-08] MEDS: nitroglycerin 0.4 mg sublingual Tablet SUBLINGUAL (07:14)
[2019-06-08 07:15] LABS: Basophils # 0.1 10^3/uL (0.0-0.1); Basophils % 1.3 %; Eosinophils # 0.4 10^3/uL (0.0-0.8); Eosinophils % 4.1 %; Hematocrit 31.6 % (37.0-47.0); Hemoglobin 10.5 g/dL (11.5-15.3); Lymphocytes # 2.3 10^3/uL (0.8-4.8); Lymphocytes % 26.9 %; Mean Corpuscular HGB Conc 33.2 g/dL (30.0-36.0); Mean Corpuscular Hemoglobin 35.6 pg (28.0-34.0); Mean Corpuscular Volume 107.1 fL (81-99); Mean Platelet Volume 9.8 fL (7.4-10.4); Monocytes # 0.3 10^3/uL (0.2-0.9); Monocytes % 3.9 %; Neutrophils # 5.5 10^3/uL (1.8-7.7); Neutrophils % 63.6 %; Nucleated Red Blood Cells % 0 %; Platelet Count 408 10^3/cmm (130-400); Red Blood Count 2.95 10^6/uL (4.1-5.3); White Blood Count 8.7 10^3/uL (4.0-10.0)
--- NOTE | 2019-06-08 07:16 | PC.NURSE ---
Discussed with Dr Mata that pt had aspirin about 7 hours ago on her first visit to ED and pt has been drinking heavily all night. Aspirin order cancelled per VO.
[2019-06-08 07:17] VITALS: BP 140/113; PULSE 113; RESP 15; O2SAT 97
[2019-06-08 07:23] LABS: HCG, Serum Qual Negative (Negative)
--- NOTE | 2019-06-08 07:24 | PC.NURSE ---
Pt to CT
[2019-06-08 07:25] LABS: INR 0.99 (0.8-1.2)
[2019-06-08 07:30] LABS: H. Pylori IgG Antibody Positive (Negative)
[2019-06-08 07:35] LABS: Troponin(5th) Baseline 12 ng/mL (0-10)
[2019-06-08 07:39] VITALS: PULSE 108; RESP 16; O2SAT 98
[2019-06-08] MEDS: lidocaine 2% viscous 15 ML, aluminum-mag hydrox-simethicon 30 ML, sucralfate oral liq 1 GM PO (07:40)
--- NOTE | 2019-06-08 07:41 | ED_ITS ---
HPI - Chest Pain General: Chief Complaint: Chest Pain Stated Complaint: LEFT ARM PAIN AND CP Time Seen by Provider: 06/08/19 06:32 History of Present Illness: HPI narrative: Melissa is a nice 48-year-old female who comes in complaining of chest pain, left arm pain upper neck and back pain. She states the pain began 4 days ago and has been constant. She states the pain never leaves and it does not wax or wane in intensity. She states that any type of movement with her neck or arm makes the symptoms worse but she denies any injuries, fever or other complaints. Patient does admit to drinking alcohol every day these past 4 days. She describes the pain in all these areas as a dull ache. She denies any shortness of breath, diaphoresis, radiation of her pain, syncope or near syncope type symptoms. She denies any history of heart problems. Of note the patient's been here in the ER several times the past few days, this being her fourth. She was seen 1 or 2 other times I have not had a chance to review the chart completely but she is checked in a few times for the same complaint it has been reported to me. Associated symptoms: Reports nausea and vomiting; Deny abdominal pain, diaphoresis, dyspnea, fever(s), palpitations or syncope Review of Systems General: Reports: other (negative unless marked) Const: Denies: fever, chills, body aches, fatigue, malaise or diaphoresis Eyes: Denies: change in vision or blurry vision ENMT: Denies: throat pain, painful swallowing, hoarseness, ear pain, ear disc harge, Change in hearing or nasal discharge Card: Reports: chest pain; Denies: palpitations, irregular heart rhythm, syncope, pre-syncope, shortness of breath on exertion or shortness of breath when lying down Resp: Denies: shortness of breath, productive cough, non-productive cough, wheezing, coughing up blood or chest congestion GI: Reports: nausea and vomiting; Denies: abdominal pain, vomiting blood, coffee grounds in vomit, diarrhea, constipation, cramping, blood in stool or black tarry stool : Denies: flank pain, painful urination, urinary frequency, urinary urgency, decreased urine ouput, urinary incontinence or blood in urine Musc: Denies: back pain, extremity pain, extremity swelling, joint swelling, joint warmth or joint stiffness Skin/Breast: Denies: rash, skin tenderness or yellow skin Neuro: Denies: headache, numbness in extremities, weakness in extremities, changes in sensation, lack of coordination, difficulty walking, dizziness, verti go or confusion Endo: Denies: excessive thirst, tired all the time, cold intolerance, excessive sweating, flushing or hot flashes Eric/Lymph: Denies: easy bruising, easy bleeding, petechiae or enlarged lymph nodes All/Imm: Denies: hives, throat swelling, tongue swelling, facial swelling or acute wheezing PFSH ED PFSH: Medical History Alcoholism Anemia Carpal tunnel syndrome Chronic back pain Chronic pancreatitis Cirrhosis Enteritis GERD (gastroesophageal reflux disease) H. pylori infection Hepatitis A Sciatica Surgical History H/O rotator cuff surgery H/O: hysterectomy History of appendectomy History of cholecystectomy Social History Smoking and tobacco status: current every day smoker Alcohol intake: current Desire information about alcohol rehabilitation?: No Counseling given: Yes Last alcohol use date: 02/15/19 Physical Exam Const: COMMON NORMALS: no apparent distress, oriented x3, no limitations, healthy appearing and well nourished EXAM LIMITATIONS: no altered mental status GENERAL APPEARANCE: cooperative, well kempt and well developed ORIENTATION/CONSCIOUSNESS: Yes awake HENMT: COMMON NORMALS: normocephalic, head/scalp atraumatic, hearing grossly normal bilaterally, external ears normal, EAC's normal, external nose normal and moist oral mucous membranes HEAD & SCALP: normal to inspection, normocephalic and atraumatic FACE & SINUS: normal facial exam and face symmetric NOSE: external nose normal and nares normal EXTERNAL EAR: Yes external ears normal EXTERNAL AUDITORY CANAL: EAC's normal MOUTH: oral and palatal mucosa normal and tongue normal Eye: COMMON NORMALS: PERRL, EOMs intact bilaterally, conjunctivae normal and no scleral icterus GENERAL EYE: normal appearance of both eyes and normal light reflex CONJUNCTIVA: Yes conjunctivae normal SCLERA: sclerae normal CORNEA: Yes corneas normal PUPIL: Yes PERRL DIRECT OPHTHALMOSCOPY: Yes normal light reflex Neck/C-Spine: COMMON NORMALS: full ROM, no lymphadenopathy, supple, no meningeal signs and no JVD GENERAL: Yes normal visual inspection and Yes trachea midline CERVICAL SPINE: Yes cervical ROM normal Chest: COMMONS NORMALS: inspection of chest normal and palpation of chest normal Resp: COMMON NORMALS: normal respiratory effort, no retractions, no use of accessory muscles and clear to auscultation bilaterally EFFORT & INSPECTION: Yes able to speak in complete sentences AUSCULTATION: clear to auscultation bilaterally Cardio: COMMON NORMALS: no JVD, regular rate, regular rhythm, S1 normal heart sound, S2 normal heart sound, no gallops, no clicks, no murmurs and no rub JUGULAR VENOUS DISTENTION: no JVD RATE: regular rate RHYTHM: regular rhythm HEART SOUNDS: S1 normal and S2 normal GI: COMMON NORMALS: soft to palpation, non-tender, no hepatosplenomegaly and no masses INSPECTION: Yes normal to inspection PALPATION: Yes soft and Yes no hepatosplenomegaly : COMMON NORMALS: Yes no CVA tenderness BLADDER/KIDNEY EXAM: Yes no CVA tenderness Back/Pelvis: COMMON NORMALS: no CVA tenderness, thoracic and lumbar spine normal to inspection, no thoracic nor lumbar tenderness and thoraco-lumbar ROM normal Extremity: COMMON NORMALS: normal to inspection, full ROM, normal capillary refill, no joint enlargement, no clubbing, cyanosis or edema and no calf tenderness Neuro: COMMON NORMALS: oriented x3, CN's II-XII intact bilaterally, moves all extremities, no focal motor deficits and no sensory deficits noted MENINGEAL SIGNS: Yes no meningeal signs Psych: COMMON NORMALS: mental status grossly normal, thought process normal, cooperative, affect normal, speech normal and activity/motor behavior normal APPEARANCE: Yes well kempt SPEECH: Yes normal speech THOUGHT PROCESS: normal thought process Skin: COMMON NORMALS: no rashes or lesions noted, skin turgor normal, no jaundice, no petechiae and no mottling GENERAL SKIN EXAM: no rashes or les ions noted and turgor normal Course Vital Signs: Vital signs: Vital Signs Temperature 98.5 F 06/08/19 06:40 Pulse Rate 108 H 06/08/19 07:39 Respiratory Rate 16 06/08/19 07:39 Blood Pressure 140/113 06/08/19 07:17 Pulse Oximetry 98 06/08/19 07:39 MDM - Chest Pain MDM Narrative: Medical decision making narrative: [id number] -the patient refuses to stay any longer for test results. She states she is feeling better after IV fluids. Her EKG shows a sinus tachycardia but I see no evidence of acute coronary syndrome. Clinically I think the patient has osteoarthritis type pain and likely an ulcer. Her drinking alcohol is making that worse. At this time she does not appear to be clinically intoxicated. The patient is able to talk and carry on a conversation is a normal person would and shows no sign of ataxia or impairment. I believe she more than has the capacity to make her own decisions. She is asked me several questions and based upon my answer she is asked more questions and decided that she would rather just go home and follow- up with her doctor. I have informed him that any type of alcohol or spicy food or high sugar diets will make her abdominal pain worse. She states she understands this and will abstain from all those things. She does not want to wait for any prescription medicines so I have informed her that the [id number] medicines at [facility] that will help her such as Pepcid, Prilosec OTC and Mylanta. The patient understood that she is more than welcome to return here if she changed her mind. At this time though she is wanting to go. My suspicion is her ride is leaving and she cannot wait any longer. The patient did sign a AGAINST MEDICAL ADVICE form and she knew leaving for her risk of or severe permanent disability by doing so. She understood these risks and accepts these risks but still decided it was in her best interest to leave. The patient did understand though she was welcome to return. She would not wait for referral to another physician or discharge instructions. Lab Data: Labs: Lab Results 06/08/19 06/08/19 06/08/19 Range/Units 07:07 07:07 07:07 WBC 8.7 (4.0-10.0) 10^3/ uL RBC 2.95 L (4.1-5.3) 10^6/u L Hgb 10.5 L (11.5-15.3) g/dL Hct 31.6 L (37.0-47.0) % MCV 107.1 H (81-99) fL MCH 35.6 H (28.0-34.0) pg MCHC 33.2 (30.0-36.0) g/dL RDW 15.0 (12.1-15.1) % Plt Count 408 H (130-400) 10^3/c mm MPV 9.8 (7.4-10.4) fL Neut % (Auto) 63.6 % Lymph % (Auto) 26.9 % [place] % (Auto) 3.9 % Eos % (Auto) 4.1 % Baso % (Auto) 1.3 % Neut # (Auto) 5.5 (1.8-7.7) 10^3/u L Lymph # (Auto) 2.3 (0.8-4.8) 10^3/u L [place] # (Auto) 0.3 (0.2-0.9) 10^3/u L Eos # (Auto) 0.4 (0.0-0.8) 10^3/u L Baso # (Auto) 0.1 (0.0-0.1) 10^3/u L Nucleated RBC % (a uto) 0 % Nucleated RBCs # 0.0 /100WBC PT 13.10 (10.5-13.3) SECO NDS INR 0.99 (0.8-1.2) Sodium (136-145) mmol/L Potassium (3.5-5.1) mmol/L Chloride (98-107) mmol/L Carbon Dioxide (22-29) mmol/L Anion Gap (5-19) BUN (6-20) mg/dL Creatinine (0.5-0.9) mg/dL GFR Calculation (90-130) mL/min Glucose (65-115) mg/dL Calculated Osmolal ity (285-295) mOsm/k g Calcium (8.5-10.5) mg/dL Magnesium (1.7-2.3) mg/dL Total Bilirubin (0.15-1.2) mg/dL AST (0-32) U/L ALT (0-33) U/L Alkaline Phosphata se (35-105) IU/L Troponin T Baselin e (0-10) ng/mL NT-Pro-B Natriuret Pep (0-125) pg/mL Total Protein (6.6-8.7) g/dL Albumin (3.5-5.2) g/dL Globulin (1.3-4.6) g/dL HCG, Qual (Negative) Ethyl Alcohol H. pylori IgG Anti body Positive H (Negative) 06/08/19 06/08/19 06/08/19 Range/Units 07:07 07:07 07:07 WBC (4.0-10.0) 10^3/ uL RBC (4.1-5.3) 10^6/u L Hgb (11.5-15.3) g/dL Hct (37.0-47.0) % MCV (81-99) fL MCH (28.0-34.0) pg MCHC (30.0-36.0) g/dL RDW (12.1-15.1) % Plt Count (130-400) 10^3/c mm MPV (7.4-10.4) fL Neut % (Auto) % Lymph % (Auto) % Winston % (Auto) % Eos % (Auto) % Baso % (Auto) % Neut # (Auto) (1.8-7.7) 10^3/u L Lymph # (Auto) (0.8-4.8) 10^3/u L Winston # (Auto) (0.2-0.9) 10^3/u L Eos # (Auto) (0.0-0.8) 10^3/u L Baso # (Auto) (0.0-0.1) 10^3/u L Nucleated RBC % (a uto) % Nucleated RBCs # /100WBC PT (10.5-13.3) SECO NDS INR (0.8-1.2) Sodium 145 (136-145) mmol/L Potassium 3.2 L (3.5-5.1) mmol/L Chloride 107 (98-107) mmol/L Carbon Dioxide 18 L (22-29) mmol/L Anion Gap 23.2 H (5-19) BUN 17 (6-20) mg/dL Creatinine 1.0 H (0.5-0.9) mg/dL GFR Calculation 58.7 L (90-130) mL/min Glucose 102 (65-115) mg/dL Calculated Osmolal ity 297 H (285-295) mOsm/k g Calcium 9.4 (8.5-10.5) mg/dL Magnesium 1.5 L (1.7-2.3) mg/dL Total Bilirubin 0.3 (0.15-1.2) mg/dL AST 53 H (0-32) U/L ALT 90 H (0-33) U/L Alkaline Phosphata se 118 H (35-105) IU/L Troponin T Baselin e 12 H (0-10) ng/mL NT-Pro-B Natriuret Pep 899 H (0-125) pg/mL Total Protein 7.5 (6.6-8.7) g/dL Albumin 4.2 (3.5-5.2) g/dL Globulin 3.3 (1.3-4.6) g/dL HCG, Qual Negative (Negative) Ethyl Alcohol Cancelled H. pylori IgG Anti body (Negative) Discharge Plan Discharge Patient Disposition: Left Against Medical Advice Clinical Impression: Chest pain Qualifiers: Chest pain type: unspecified Qualified Code(s): R07.9 - Chest pain, unspecified Condition: Stable Prescriptions: No Action gabapentin 800 mg Tablet 600 mg PO TID RF: 0 pantoprazole 40 mg Tablet,Delayed Release (Dr/Ec) 40 mg PO BIDWM Qty: 60 RF: 0 thiamine mononitrate (vit B1) [Vitamin B-1 (mononitrate)] 100 mg Tablet 100 mg PO DAILY Qty: 30 RF: 0 ferrous sulfate 325 mg (65 mg iron) tablet,delayed release (DR/EC) 325 mg PO BID Qty: 60 RF: 0 acetaminophen [Tylenol Extra Strength] 500 mg Tablet 500 mg PO Q6H PRN (Reason: Pain) RF: 0 Reglan 10 mg tablet 10 mg PO Q6H PRN (Reason: nausea and vomiting) Qty: 20 RF: 0 [place] 5-325 mg tablet 1 tab PO Q6H PRN (Reason: Pain) Qty: 10 RF: 0 Carafate 1 gram Tablet 1 g PO TID RF: 0 oxycodone-acetaminophen 10-325 mg Tablet 1 tab PO Q6H PRN (Reason: Pain) RF: 0 diazepam 10 mg Tablet 10 mg PO Q6H PRN (Reason: Anxiety) RF: 0 trazodone 100 mg tablet 100 mg PO BEDTIME RF: 0 Referrals: Maggie Serna DPM [Primary Care Provider] - Gómez,Leslie, MD [Family Provider] - Interventions: ED Discharge Assessment Last Done: 06/08/19 07:53 Discharge Date/Time: 06/08/19 07:55 Coding Level of Care Code ED Machine Driller for Shila Mcallister
[2019-06-08 07:45] LABS: Alanine Aminotransferase 90 U/L (0-33); Albumin Level 4.2 g/dL (3.5-5.2); Alkaline Phosphatase 118 IU/L (35-105); Anion Gap 23.2 (5-19); Aspartate Amino Transferase 53 U/L (0-32); Blood Urea Nitrogen 17 mg/dL (6-20); Calcium 9.4 mg/dL (8.5-10.5); Carbon Dioxide 18 mmol/L (22-29); Chloride 107 mmol/L (98-107); Globulin 3.3 g/dL (1.3-4.6); Glomerular Filtration Rate 58.7 mL/min (90-130); Glucose 102 mg/dL (65-115); Magnesium 1.5 mg/dL (1.7-2.3); NT Pro B Type Natriuretic Pept 899 pg/mL (0-125); Osmolality Calculated 297 mOsm/kg (285-295); Potassium 3.2 mmol/L (3.5-5.1); Sodium 145 mmol/L (136-145); Total Bilirubin 0.3 mg/dL (0.15-1.2); Total Protein 7.5 g/dL (6.6-8.7)
--- NOTE | 2019-06-08 07:50 | PC.NURSE ---
Pt stated she wanted to leave. Dr Mata at bedside to discuss risks of leaving AMA again. Pt understands these risks and states she still wants to leave. Pt states she will get a PCP in [facility] to follow up with. Pt left ambulatory and stable with instructions to return to ED for any concerning or worsening symptoms.
[2019-06-08 07:53] VITALS: BP 147/103; PULSE 104; RESP 17; O2SAT 98
[2019-06-08 07:54] LABS: Lipase 647 U/L (13-60)
== END 2019-06-08 07:55 | disposition left against medical advice (07) ==
PROVIDERS: Emergency Provider Emergency Medicine; Family Provider Family Medicine; PCP Nurse Practitioner
DX: R07.9 Chest pain, unspecified (principal); Z53.21 Procedure and treatment not carried out due to patient leaving prior to being seen by health care provider; F17.210 Nicotine dependence, cigarettes, uncomplicated; K21.9 Gastro-esophageal reflux disease without esophagitis
CPT/HCPCS: 12345; 36415; 70450; 71045; 72125; 80053; 83690; 83735; 83880; 84484; 84703; 85025; 85610; 86677; 93005; 96374; 99283; 99284; J0131

== ENCOUNTER 2019-06-08 22:05 | Emergency (ER) | payer MEDICAID, SELFPAY ==
[2019-06-08 22:21] VITALS: BP 139/92; PULSE 112; RESP 18; TEMP 36.6; O2SAT 98; BMI 29.2
--- NOTE | 2019-06-08 22:25 | ED_ITS ---
HPI - Abdominal Pain General: Chief Complaint: Abdominal Pain Stated Complaint: n/v x 4-5 days Time Seen by Provider: 06/08/19 22:08 Source: patient Mode of arrival: ambulatory Limitations: no limitations History of Present Illness: HPI narrative: Patient comes in today for nausea and vomiting for 5 days. Patient states that she has had increasing pain and discomfort over the last few days. Patient has been in the ER 4 times in the last 24 hours. Patient does not complete evaluations and has been difficult to work with and finishing her exam. I reviewed labs from this morning and noticed a lipase above 600. Patient was made aware of her elevated lipase and her most likely diagnosis of pancreatitis. I recommended patient try to give us time to give her medication and to treat her illness in order to improve her symptoms. Patient was made aware that she has to give people some time to be able to complete the orders. Patient has left within 5 minutes of checking in on most of her visits. CT scan of the head and neck this morning were negative for any abnormalities. EKG done yesterday evening showed no abnormalities except for mild tachycardia. Associated Symptoms: Reports nausea and vomiting Review of Systems General: Reports: 10 or more systems reviewed and unremarkable except in HPI and below GI: Reports: abdominal pain, nausea and vomiting [facility] ED PFSH: Social History Smoking and tobacco status: current every day smoker Alcohol intake: current Desire information about alcohol rehabilitation?: No Counseling given: Yes Last alcohol use date: 02/15/19 Physical Exam Const: COMMON NORMALS: no apparent distress and oriented x3 GENERAL APPEARANCE: cooperative HENMT: COMMON NORMALS: normocephalic, TM's normal bilaterally and external nose normal HEAD & SCALP: normal to inspection and normocephalic NOSE: external nose normal TYMPANIC MEMBRANE: TM's normal bilaterally MOUTH: oral and palatal mucosa normal THROAT: posterior oropharynx normal Eye: GENERAL EYE: normal appearance of both eyes Neck/C-Spine: COMMON NORMALS: full ROM Lymph: LYMPHATIC: no lymphadenopathy noted Chest: COMMONS NORMALS: inspection of chest normal Resp: COMMON NORMALS: normal respiratory effort EFFORT & INSPECTION: Yes able to speak in complete sentences Cardio: COMMON NORMALS: regular rate and regular rhythm RATE: regular rate RHYTHM: regular rhythm GI: AUSCULTATION: Yes normoactive bowel sounds PALPATION: Yes tender (epigastric) : COMMON NORMALS: Yes no CVA tenderness BLADDER/KIDNEY EXAM: Yes no CVA tenderness Back/Pelvis: COMMON NORMALS: no CVA tenderness and thoracic and lumbar spine normal to inspection Extremity: COMMON NORMALS: normal to inspection Neuro: COMMON NORMALS: oriented x3 and moves all extremities Psych: COMMON NORMALS: mental status grossly normal and cooperative Skin: COMMON NORMALS: no rashes or lesions noted GENERAL SKIN EXAM: no rashes or lesions noted Course Vital Signs: Vital signs: Vital Signs Temperature 97.9 F 06/08/19 22:21 Pulse Rate 111 H 06/08/19 23:40 Respiratory Rate 18 06/08/19 23:40 Blood Pressure 137/108 06/08/19 23:40 Pulse Oximetry 99 06/08/19 23:40 MDM - Abdominal Pain 2 MDM Narrative: Medical decision making narrative: Patient comes in today for complaints of chest discomfort and neck and back pain. Patient has been here several times in the last 24 hours but has neglected to stay for the full evaluation each time. Reviewing records from previous evaluations it was noted that patient had some pancreatitis. Although this does seem to be a chronic in nature her lipase had elevated from 80 to 600 this morning. We did a CT scan on the patient and noted some mild inflammation of the pancreas and gastral wall. Repeat laboratory values noted the lipase had come down to 400 and the rest of the labs had been unchanged. [place] patient probably is continuing to drink which is exacerbating her pancreatitis and gastritis. Reviewed this with patient recommending her to stop her drinking of alcohol. Recommended patient use Zofran to help with nausea and vomiting. And use pantoprazole and her [place] for her pain relief. Encourage clear liquid diet for the next 2 to 3 days and then follow-up with primary care. Recommend return to the ER for high fever or worsening symptoms. Lab Data: Labs: Lab Results 06/08/19 06/08/19 Range/Units 22:35 22:35 WBC 6.3 (4.0-10.0) 10^3/ uL RBC 3.18 L (4.1-5.3) 10^6/u L Hgb 11.6 (11.5-15.3) g/dL Hct 35.0 L (37.0-47.0) % MCV 110.1 H (81-99) fL MCH 36.5 H (28.0-34.0) pg MCHC 33.1 (30.0-36.0) g/dL RDW 15.2 H (12.1-15.1) % Plt Count 351 (130-400) 10^3/c mm MPV 10.0 (7.4-10.4) fL Neut % (Auto) 65.8 % Lymph % (Auto) 25.8 % [place] % (Auto) 4.6 % Eos % (Auto) 2.6 % Baso % (Auto) 1.0 % Neut # (Auto) 4.1 (1.8-7.7) 10^3/u L Lymph # (Auto) 1.6 (0.8-4.8) 10^3/u L [place] # (Auto) 0.3 (0.2-0.9) 10^3/u L Eos # (Auto) 0.2 (0.0-0.8) 10^3/u L Baso # (Auto) 0.1 (0.0-0.1) 10^3/u L Nucleated RBC % (a uto) 0 % Nucleated RBCs # 0.0 /100WBC Sodium 143 (136-145) mmol/L Potassium 3.1 L (3.5-5.1) mmol/L Chloride 106 (98-107) mmol/L Carbon Dioxide 20 L (22-29) mmol/L Anion Gap 20.1 H (5-19) BUN 12 (6-20) mg/dL Creatinine 0.7 (0.5-0.9) mg/dL GFR Calculation 88.6 L (90-130) mL/min Glucose 101 (65-115) mg/dL Calculated Osmolal ity 292 (285-295) mOsm/k g Calcium 10.0 (8.5-10.5) mg/dL Total Bilirubin 0.5 (0.15-1.2) mg/dL AST 45 H (0-32) U/L ALT 75 H (0-33) U/L Alkaline Phosphata se 111 H (35-105) IU/L Total Protein 7.5 (6.6-8.7) g/dL Albumin 4.2 (3.5-5.2) g/dL Globulin 3.3 (1.3-4.6) g/dL Lipase 446 H (13-60) U/L Ethyl Alcohol 209 H (0-10) mg/dL Discharge Plan Discharge Patient Disposition: Home, Self-Care Clinical Impression: Alcoholism Chronic pancreatitis Qualifiers: Pancreatitis type: alcohol induced Qualified Code(s): 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 Qualifiers: Chronicity: chronic Gastritis bleeding: presence of bleeding unspecified Qualified Code(s): K29.20 - Alcoholic gastritis without bleeding Condition: Stable Prescriptions: New ondansetron HCl 4 mg tablet 4 mg PO Q8H PRN (Reason: nausea and vomiting) Qty: 10 RF: 0 Continued pantoprazole 40 mg Tablet,Delayed Release (Dr/Ec) 40 mg PO BIDWM Qty: 60 RF: 0 [place] 5-325 mg tablet 1 tab PO Q6H PRN (Reason: Pain) Qty: 10 RF: 0 No Action gabapentin 800 mg Tablet 600 mg PO TID RF: 0 thiamine mononitrate (vit B1) [Vitamin B-1 (mononitrate)] 100 mg Tablet 100 mg PO DAILY Qty: 30 RF: 0 ferrous sulfate 325 mg (65 mg iron) tablet,delayed release (DR/EC) 325 mg PO BID Qty: 60 RF: 0 acetaminophen [Tylenol Extra Strength] 500 mg Tablet 500 mg PO Q6H PRN (Reason: Pain) RF: 0 Reglan 10 mg tablet 10 mg PO Q6H PRN (Reason: nausea and vomiting) Qty: 20 RF: 0 Carafate 1 gram Tablet 1 g PO TID RF: 0 oxycodone-acetaminophen 10-325 mg Tablet 1 tab PO Q6H PRN (Reason: Pain) RF: 0 diazepam 10 mg Tablet 10 mg PO Q6H PRN (Reason: Anxiety) RF: 0 trazodone 100 mg tablet 100 mg PO BEDTIME RF: 0 Referrals: Maggie Serna DPM [Primary Care Provider] - Leslie Magaña MD [Family Provider] - Discharge Diet: Clear Liquid Discharge Activity: Increase activity as tolerated Patient Instructions: Pancreatitis (ED) Activity Restrictions/Additional Instructions: Drink clear liquids until pain is resolved. Do not drink alcohol. Use medications as directed. Follow-up with primary care tomorrow for recheck and repeat evaluation of labs as needed. Return to the ER for high fever or new concerns. Coding Level of Care Code ED Rug Cutter for Zacharyg Fwd Exam Comprehensive
--- NOTE | 2019-06-08 22:30 | CTR_ITS ---
PROCEDURE INFORMATION: Exam: CT Abdomen And Pelvis With Contrast Exam date and time: 06/08/2019 11:13 PM Age: 48 years old Clinical indication: Nausea and vomiting; Prior surgery; Surgery date: 6+ months; Surgery type: Hyst; Additional info: Elevate lipase TECHNIQUE: Imaging protocol: Computed tomography of the abdomen and pelvis with intravenous contrast. Total DLP: 1048.93 mGy-cm Radiation optimization: All CT scans at this facility use at least one of these dose optimization techniques: automated exposure control; mA and/or kV adjustment per patient size (includes targeted exams where dose is matched to clinical indication); or iterative reconstruction. Contrast material: OMNI 300; Contrast volume: 95 ml; Contrast route: IV; COMPARISON: CT abdomen pelvis w con* [id number] 02/22/2019 2:11 PM FINDINGS: Lungs: Several small calcified granulomas in the lower lungs. No pleural fluid. Mediastinum: Small hiatal hernia. There may be some mucosal/wall thickening involving the lower esophagus. This is nonspecific, but could represent evidence for esophagitis. Neoplasm not entirely excluded. Please correlate clinically. Liver: There is fatty infiltration of the liver. Gallbladder and bile ducts: Prior cholecystectomy. Mild to moderate extra hepatic biliary tree dilation, with common duct measuring up to about 13-14 mm. Mild intrahepatic biliary prominence. No visible common duct stone by CT. Significance uncertain. The appearance is similar to the prior exam. Correlation with laboratory/bilirubin levels may be helpful to determine if there is any significant biliary obstruction. Pancreas: Mild presumed inflammatory changes around the head of the pancreas, possibly representing acute pancreatitis. Please correlate with clinical and laboratory evaluation. Small amount of peripancreatic and right retroperitoneal fluid. No pseudocyst. No pancreatic duct dilation. The pancreas appears to enhance homogeneously. Possibility the above findings could be secondary to adjacent duodenitis. Spleen: Unremarkable. Adrenals: Unremarkable. Kidneys and ureters: Unremarkable. Stomach and bowel: Apparent mildly thickened mucosa/wall in the proximal/mid duodenum. Small amount of surrounding inflammatory changes/fluid. This is a nonspecific appearance, and could be secondary to the adjacent suspected pancreatitis. This appearance might also represent evidence for duodenitis or peptic ulcer disease. Please correlate clinically. Postsurgical changes again seen in the sigmoid colon. There are no CT findings to strongly suggest diverticulitis. Appendix: The appendix is not identified with certainty, however no pericecal inflammatory changes are seen. Intraperitoneal space: No free air, ascites, or significant bowel distention. Vasculature: No evidence for abdominal aortic aneurysm. Lymph nodes: No retroperitoneal adenopathy. Bladder: Unremarkable as visualized. Reproductive: Prior hysterectomy. No definite ovarian/adnexal cyst or mass by CT. Bones/joints: No significant acute finding. Soft tissues: No significant acute finding. CT/CT abdomen pelvis w con* [id number] IMPRESSION: 1. Pancreas and duodenal findings as detailed above. The findings could represent mild acute pancreatitis, although duodenitis/peptic ulcer disease are other possibilities. See above discussion. 2. No free air or significant bowel distention. No evidence for bowel obstruction. 3. Prior cholecystectomy. Mild to moderate biliary tree prominence, see above discussion. 4. Small hiatal hernia. Possibly some thickening of the lower esophagus, see above discussion. 5. Other findings discussed above. Radiation Dose CTDIVOL = (mGy): DLP = 1048.93 (mGy-cm)
[2019-06-08] MEDS: sodium chloride 0.9% 1,000 ML 999 ML IV (22:41)
[2019-06-08] MEDS: ondansetron 2 mg/ML SDV 2 mL 4 MG IVP (22:42)
[2019-06-08] MEDS: morphine 4 mg/mL SDV 1 mL IVP (22:42)
[2019-06-08 22:57] LABS: Basophils # 0.1 10^3/uL (0.0-0.1); Eosinophils # 0.2 10^3/uL (0.0-0.8); Eosinophils % 2.6 %; Hemoglobin 11.6 g/dL (11.5-15.3); Lymphocytes # 1.6 10^3/uL (0.8-4.8); Lymphocytes % 25.8 %; Mean Corpuscular HGB Conc 33.1 g/dL (30.0-36.0); Mean Corpuscular Hemoglobin 36.5 pg (28.0-34.0); Mean Corpuscular Volume 110.1 fL (81-99); Monocytes # 0.3 10^3/uL (0.2-0.9); Monocytes % 4.6 %; Neutrophils # 4.1 10^3/uL (1.8-7.7); Neutrophils % 65.8 %; Nucleated Red Blood Cells % 0 %; Platelet Count 351 10^3/cmm (130-400); Red Blood Count 3.18 10^6/uL (4.1-5.3); Red Cell Distribution Width 15.2 % (12.1-15.1); White Blood Count 6.3 10^3/uL (4.0-10.0)
[2019-06-08 23:07] LABS: Alanine Aminotransferase 75 U/L (0-33); Albumin Level 4.2 g/dL (3.5-5.2); Alcohol Level 209 mg/dL (0-10); Alkaline Phosphatase 111 IU/L (35-105); Anion Gap 20.1 (5-19); Aspartate Amino Transferase 45 U/L (0-32); Blood Urea Nitrogen 12 mg/dL (6-20); Carbon Dioxide 20 mmol/L (22-29); Chloride 106 mmol/L (98-107); Creatinine Clr Calc Pharmacy 96.6335; Globulin 3.3 g/dL (1.3-4.6); Glomerular Filtration Rate 88.6 mL/min (90-130); Glucose 101 mg/dL (65-115); Osmolality Calculated 292 mOsm/kg (285-295); Potassium 3.1 mmol/L (3.5-5.1); Sodium 143 mmol/L (136-145); Total Bilirubin 0.5 mg/dL (0.15-1.2); Total Protein 7.5 g/dL (6.6-8.7)
[2019-06-08] MEDS: iohexol 300 mg/mL 100 mL Btl IV (23:14)
[2019-06-08 23:21] LABS: Lipase 446 U/L (13-60)
[2019-06-08] MEDS: haloperidol inj 5 mg/mL INJ 1 mL 3 MG IVP (23:39)
[2019-06-08 23:40] VITALS: BP 137/108; PULSE 111; RESP 18; O2SAT 99
[2019-06-09] MEDS: haloperidol inj 5 mg/mL INJ 1 mL (00:27)
[2019-06-09] MEDS: fentaNYL 50 mcg/mL INJ 2mL IVP (00:39)
[2019-06-09] MEDS: pantoprazole 40 mg SDV IVP (00:55)
[2019-06-09 01:04] VITALS: BP 120/80; PULSE 96; RESP 16; O2SAT 96
== END 2019-06-09 01:04 | disposition home or self-care (01) ==
PROVIDERS: Emergency Provider Nurse Practitioner Family; Family Provider Family Medicine; PCP Nurse Practitioner
DX: K86.0 Alcohol-induced chronic pancreatitis (principal); K29.20 Alcoholic gastritis without bleeding; F10.20 Alcohol dependence, uncomplicated; F17.210 Nicotine dependence, cigarettes, uncomplicated
CPT/HCPCS: 12345; 74177; 80053; 80307; 83690; 85025; 96361; 96374; 96375; 99282; 99284; C9113; J1630; J2270; J2405; J3010; J7030; Q9967

== ENCOUNTER 2019-06-10 17:05 | Emergency (ER) | payer MEDICAID, SELFPAY ==
[2019-06-10 17:06] VITALS: BP 179/116; PULSE 134; RESP 18; TEMP 37.2; O2SAT 98
== END 2019-06-10 17:14 | disposition left against medical advice (07) ==
LOC: ER 17:55
PROVIDERS: Emergency Provider Nurse Practitioner Family; Family Provider Family Medicine; PCP Nurse Practitioner
DX: Z53.21 Procedure and treatment not carried out due to patient leaving prior to being seen by health care provider (principal)
CPT/HCPCS: 99281

== ENCOUNTER 2019-06-16 20:57 | Inpatient (IN) | payer MEDICAID, SELFPAY ==
[2019-06-16 21:07] VITALS: BP 165/112; PULSE 118; RESP 16; TEMP 36.7; O2SAT 97; BMI 29.2
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
[2019-06-16] MEDS: haloperidol inj 5 mg/mL INJ 1 mL IM ×2 (21:30→23:04)
[2019-06-16] MEDS: LORazepam 2 mg/mL INJ 1 mL IM ×2 (21:30→23:03)
[2019-06-16 22:18] LABS: Basophils % 0.5 %; Eosinophils # 0.2 10^3/uL (0.0-0.8); Eosinophils % 3.5 %; Hematocrit 30.7 % (37.0-47.0); Hemoglobin 9.8 g/dL (11.5-15.3); Lymphocytes # 1.7 10^3/uL (0.8-4.8); Lymphocytes % 27.7 %; Mean Corpuscular HGB Conc 31.9 g/dL (30.0-36.0); Mean Corpuscular Volume 112.9 fL (81-99); Mean Platelet Volume 9.1 fL (7.4-10.4); Monocytes # 0.4 10^3/uL (0.2-0.9); Monocytes % 6.9 %; Neutrophils # 3.8 10^3/uL (1.8-7.7); Neutrophils % 61.2 %; Nucleated Red Blood Cells % 0 %; Platelet Count 212 10^3/cmm (130-400); Red Blood Count 2.72 10^6/uL (4.1-5.3); Red Cell Distribution Width 16.5 % (12.1-15.1); White Blood Count 6.2 10^3/uL (4.0-10.0)
[2019-06-16 22:31] VITALS: BP 137/100; PULSE 105; RESP 18; O2SAT 93
[2019-06-16 22:33] LABS: Add Urine Culture? Yes; Bacteria Urine 1+; Bilirubin Urine Neg (NEGATIVE); Blood Urine 2+ (Negative); Glucose Urine UA Norm (Normal); HCG Qualitative Urine. Negative (Negative); Ketones Urine Negative (Negative); Leukocyte Esterase Urine Trace (Negative); Nitrate Urine Negative (Negative); Protein Urine Neg (Negative); RBC Urine 0-4 /hpf (0-2); Squamous Epithelial Cell Urine 0-4 (0-5); Sulfosalicylic Acid Urine Negative (Negative); Urine Color Yellow (Yellow); Urobilinogen Urine Norm (Negative); WBC Urine 25-40 /hpf (0-5); pH Urine 5 (5-7)
--- NOTE | 2019-06-16 22:34 | PM.HP ---
Providers/Chief Complaint Primary Care Provider: MALDONADO Mendez Chief Complaint: 96 History of Present Illness Melissa Portillo is a 48 year old female Medications/Allergies Home Medications Medication Instructions Recorded Confirmed Last Taken Type gabapentin 600 mg PO TID 02/22/19 05/03/19 02/21/19 History ferrous sulfate 325 mg PO BID #60 tab 02/24/19 05/03/19 Unknown Rx pantoprazole 40 mg PO BIDWM #60 tab 02/24/19 05/03/19 Unknown Rx thiamine mononitrate (vit B1) 100 mg PO DAILY #30 tab 02/24/19 05/03/19 Unknown Rx [Vitamin B-1 (mononitrate)] acetaminophen [Tylenol Extra 500 mg PO Q6H PRN 03/27/19 05/03/19 03/26/19 History Strength] [place] 1 tab PO Q6H PRN #10 tab 05/03/19 Unknown Rx diazepam 10 mg PO Q6H PRN 05/03/19 05/03/19 Unknown History metoclopramide HCl [Reglan] 10 mg PO Q6H PRN #20 tab 05/03/19 Unknown Rx oxycodone-acetaminophen 1 tab PO Q6H PRN 05/03/19 05/03/19 Unknown History sucralfate [Carafate] 1 g PO TID 05/03/19 05/03/19 Unknown History trazodone 100 mg PO BEDTIME 05/03/19 05/03/19 Unknown History ondansetron HCl 4 mg PO Q8H PRN #10 tab 06/09/19 Unknown Rx Allergies Allergy/AdvReac Type Severity Reaction Status Date / Time codeine Allergy ALGY-Hives Verified 06/16/19 21:16 ketorolac [From Toradol] Allergy ALGY-Rash Verified 06/16/19 21:16 naproxen [From Naprosyn] Allergy ADR-Vomitin Verified 06/16/19 21:16 g prochlorperazine Allergy ALGY-Swell Verified 06/16/19 21:16 [From Compazine] Lip/Tongue/Throat PFSH Acute PFSH: Family History (Updated 06/16/19 @ 22:37 by Kathie Pulido MD) Denies family history of Diabetes CAD (coronary artery disease) Dementia Social History Smoking and tobacco status: current every day smoker Alcohol intake: current Desire information about alcohol rehabilitation?: No Counseling given: Yes Last alcohol use date: 02/15/19 Vitals/I&O/Wt Last Vital Signs Temp 98.0 F 06/16/19 21:07 Pulse 105 H 06/16/19 22:31 Resp 18 06/16/19 22:31 BP 137/100 06/16/19 22:31 Pulse Ox 93 06/16/19 22:31 Weight last 48 hrs Weight 77.111 kg Data : 06/16/19 22:08 Coding Level of Care Code Acute Swing Frame Grinder Operator for Shila Mcallister
[2019-06-16 22:36] LABS: Amphetamines Screen Urine Negative (Negative); Barbiturates Screen Urine Negative (Negative); Benzodiazepines Screen Urine Positive (Negative); Cocaine Screen Urine Negative (Negative); Opiate Screen Urine Negative (Negative); PCP Screen Urine Negative (Negative); THC Screen Urine Negative (Negative)
[2019-06-16 22:46] LABS: Alanine Aminotransferase 27 U/L (0-33); Albumin Level 4.2 g/dL (3.5-5.2); Alkaline Phosphatase 131 IU/L (35-105); Anion Gap 18.9 (5-19); Aspartate Amino Transferase 52 U/L (0-32); Blood Urea Nitrogen 10 mg/dL (6-20); Calcium 8.9 mg/dL (8.5-10.5); Carbon Dioxide 24 mmol/L (22-29); Chloride 109 mmol/L (98-107); Creatinine Clr Calc Pharmacy 96.6335; Globulin 2.9 g/dL (1.3-4.6); Glomerular Filtration Rate 88.6 mL/min (90-130); Glucose 89 mg/dL (65-115); Magnesium 1.7 mg/dL (1.7-2.3); Osmolality Calculated 301 mOsm/kg (285-295); Phenytoin Dilantin 0.8 ug/mL (10-20); Potassium 3.9 mmol/L (3.5-5.1); Sodium 148 mmol/L (136-145); Total Bilirubin 0.2 mg/dL (0.15-1.2); Total Protein 7.1 g/dL (6.6-8.7); Valproic Acid Level 2.8 mcg/mL (50-100)
[2019-06-16 22:51] LABS: Acetaminophen < 5.0 ug/mL (10-30); Salicylate < 0.3 mg/dL (3-10)
[2019-06-16 22:52] LABS: Alcohol Level 302 mg/dL (0-10)
[2019-06-16 22:58] VITALS: BP 145/100; PULSE 107; RESP 20; O2SAT 98
[2019-06-16 23:19] LABS: Lithium 0.1 mmol/L (0.6-1.2)
[2019-06-16 23:21] VITALS: BP 129/71; PULSE 111; RESP 18; TEMP 36.8; O2SAT 98
--- NOTE | 2019-06-17 00:02 | PC.NURSE ---
Patient stated she is unable to read/write. She signed consents with an x or scribbled across the lines on admission.
[2019-06-17 05:59] VITALS: BP 132/82; PULSE 114; RESP 18; TEMP 37.3; O2SAT 97
[2019-06-17 06:00] VITALS: BP 132/82; PULSE 114; RESP 18; TEMP 37.3; O2SAT 97
[2019-06-17] MEDS: acetaminophen 325 mg Tablet 650 MG PO ×4 (06:04→21:02)
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
[2019-06-17] MEDS: hyDROXYzine 25 mg Capsule 50 MG PO (13:05)
[2019-06-17] MEDS: OLANZapine ODT 5 MG TABLET PO ×3 (13:05→23:30)
--- NOTE | 2019-06-17 13:06 | PC.NURSE ---
PRN VISTARIL & ZYPREXA ZYDIS VISTARIL 50 MG GIVEN PO PER PT C/O ANXIETY. ZYPREXA ZYDIS 5 MG GIVEN PO PER PT C/O AGITATION. PT AGITATED WITH NURSING STAFF, REQUESTING ANY AND ALL PRN MEDICATIONS SHE CAN HAVE. HOSTILE WHEN NURSING STAFF ATTEMPTS TO EDUCATE PT ON PRN MEDICATIONS. WILL CONT TO MONITOR.
[2019-06-17 13:30] VITALS: BP 123/77; PULSE 114; RESP 20; TEMP 36.8; O2SAT 96
--- NOTE | 2019-06-17 18:20 | PC.NURSE ---
PRN ZYPREXA ZYDIS 5 MG GIVEN PO PER PT C/O STATED AGITATION. NO OUTWARD S/S OF AGITATION NOTED. PT REQUESTING PRN PILLS THAT DISSOLVE ON HER TONGUE WILL CONT TO MONITOR
[2019-06-17] MEDS: fluoxetine 20 mg Capsule PO (18:51)
[2019-06-17] MEDS: trazodone 50 mg Tablet PO (21:03)
[2019-06-17 22:00] VITALS: BP 155/113; PULSE 127; RESP 18; TEMP 36.9; O2SAT 96
[2019-06-18] MEDS: trazodone 50 mg Tablet PO ×2 (00:56→23:10)
[2019-06-18 05:56] VITALS: BP 143/90; PULSE 99; RESP 16; TEMP 37.3
[2019-06-18] MEDS: folic acid 1 mg Tablet PO (08:40)
[2019-06-18] MEDS: thiamine 100 mg Tablet PO (08:40)
[2019-06-18] MEDS: fluoxetine 20 mg Capsule PO (08:40)
[2019-06-18] MEDS: multivitamin therapeutic Tablet 1 TAB PO (08:40)
[2019-06-18] MEDS: acetaminophen 325 mg Tablet 650 MG PO ×3 (08:40→20:11)
[2019-06-18 12:58] VITALS: BP 120/77; PULSE 89; RESP 18; TEMP 37.1; O2SAT 96
--- NOTE | 2019-06-18 14:58 | P.PN_ITS ---
Subjective NPU Subjective: Interval history: Melissa presents today reporting that she is tolerating the Prozac without incident. She reports that she is doing better in part secondary to the resolution of her significant intoxication. We talked about her working with the treatment team to identify opportunities for ongoing treatment to deal with her depression, anxiety, bereavement and addiction issues. She endorses that she is eating and sleeping better. Mental Status Exam MSE Comments: This is an overweight, versus obese, white female, with adequate dress, grooming, and eye contact. No abnormal movements except for improving psychomotor retardation. Cooperative with exam in no acute distress. Speech was decreased rate and volume. Mood described as a little better; affect congruent. Thought process, organized. Thought content: patient denied any suicidal or homicidal ideation, there were no delusions reported or noted, patient denied any auditory or visual hallucinations. Attention, concentration, and memory appear intact but were not formally tested. She is alert and oriented times three. Insight and judgment are limited but improving. Vitals/I&O/Wt Last Vital Signs Temperature 99.1, pulse 99, respirations 16, blood pressure 143/90 Data NPU : 06/16/19 22:08 06/16/19 22:08 Micro: Microbiology 06/16/19 22:06 Urine Culture - Preliminary Urine Catheterized Enterococcus species Microbiology 06/16/19 22:06 Urine Catheterized Urine Culture - Preliminary Enterococcus species A&P Additional A&P Information (1) Suicidal ideation: This is a 48 year old, white female, with depression, anxiety, and alcohol use disorder, who presents with significant downplaying of her drinking issues, and openness to a trial of medication. Continue current medication. Continue q 15-minute checks for safety. Continue on the CIWA protocol. Will encourage individual, group, and milieu therapy. Encourage follow-up with sober living treatment at the highest level to which she is willing to commit. (2) Alcoholism: (3) Depression: (4) Anxiety: (5) Alcohol use disorder: Involuntary Hold Information 96 Hour Hold: 96 Hour Involuntary Admission: Yes 96 Hour Hold Ending Date: 06/20/19 96 Hour Hold Ending Time: 22:47 Attestations NPU Medical Necessity Statement*: Inpatient hospitalization is medically necessary and the clinically appropriate intervention at this time. We will monitor medications and adjust as indicated. Likely length of stay 1-3 days. Coding Level of Care Code Acute Heavy Duty Mechanic for [facility]
[2019-06-18] MEDS: hyDROXYzine 25 mg Capsule 50 MG PO (18:26)
--- NOTE | 2019-06-18 18:27 | PC.NURSE ---
PRN VISTARIL 50 MG GIVEN PO PER PT C/O STATED ANXIETY. PT SOMEWHAT TEARFUL, ASKING FOR MEDICATIONS OFTEN. WILL CONT TO MONITOR.
[2019-06-18 20:57] VITALS: BP 144/108; PULSE 100; RESP 18; TEMP 36.9; O2SAT 98
[2019-06-18] MEDS: OLANZapine ODT 5 MG TABLET PO (21:23)
[2019-06-19 06:00] VITALS: BP 107/74; PULSE 108; RESP 16; TEMP -13.1; TEMP 8.5; O2SAT 95
[2019-06-19] MEDS: thiamine 100 mg Tablet PO (08:01)
[2019-06-19] MEDS: multivitamin therapeutic Tablet 1 TAB PO (08:01)
[2019-06-19] MEDS: folic acid 1 mg Tablet PO (08:01)
[2019-06-19] MEDS: fluoxetine 20 mg Capsule PO (08:01)
[2019-06-19] MEDS: acetaminophen 325 mg Tablet 650 MG PO (08:04)
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
[2019-06-19 16:55] VITALS: BP 107/74; PULSE 108; RESP 16; TEMP -13.1; TEMP 8.5; O2SAT 95
== END 2019-06-19 17:43 | disposition home or self-care (01) | DRG 880 ==
LOC: ER 21:55 → NP 22:57
PROVIDERS: Emergency Medicine; Admitting Provider Psychiatry & Neurology Psychiatry; Emergency Provider Emergency Medicine; Family Provider Family Medicine; PCP Nurse Practitioner; Visit Provider Psychiatry & Neurology Psychiatry
DX: F41.8 Other specified anxiety disorders (principal); R45.851 Suicidal ideations; F10.20 Alcohol dependence, uncomplicated; F17.210 Nicotine dependence, cigarettes, uncomplicated; Z62.810 Personal history of physical and sexual abuse in childhood; E11.9 Type 2 diabetes mellitus without complications; I25.10 Atherosclerotic heart disease of native coronary artery without angina pectoris; F03.90 Unspecified dementia, unspecified severity, without behavioral disturbance, psychotic disturbance, mood disturbance, and anxiety; E66.9 Obesity, unspecified; Z68.29 Body mass index [BMI] 29.0-29.9, adult
CPT/HCPCS: 12345; 80053; 80156; 80164; 80178; 80185; 80306; 80307; 81001; 81025; 83735; 84443; 85025; 87077; 87086; 87186; 96372; 99284; J1630; J2060; J3490

== ENCOUNTER 2019-06-16 20:57 | Emergency (ER) | payer MEDICAID, SELFPAY | END 2019-06-16 23:03 | disposition admitted as inpatient to this hospital (09) | LOC: ER 06-19 12:39 | PROVIDERS: Emergency Provider Emergency Medicine; PCP Nurse Practitioner | DX: R45.851 Suicidal ideations (principal); F17.210 Nicotine dependence, cigarettes, uncomplicated | CPT/HCPCS: 12345; 80053; 80156; 80164; 80178; 80185; 80306; 80307; 81001; 81025; 83735; 84443; 85025; 87077; 87086; 87186; 96372; 99284; 99285; J1630; J2060; J3490 ==

== ENCOUNTER 2019-06-28 21:42 | Emergency (ER) | payer MEDICAID, SELFPAY ==
[2019-06-28 21:59] VITALS: BP 122/78; PULSE 102; RESP 22; TEMP 36.9; O2SAT 100; BMI 29.5
--- NOTE | 2019-06-28 22:04 | XRR_ITS ---
PROCEDURE INFORMATION: Exam: XR Chest, 1 View Exam date and time: 06/28/2019 10:33 PM Age: 48 years old Clinical indication: Cough TECHNIQUE: Imaging protocol: XR of the chest Views: 1 view. COMPARISON: CR (CHEST, ) 06/08/2019 7:29 AM FINDINGS: Lungs: Scattered punctate nodular densities bilaterally are suggestive of granulomatous calcifications. No consolidation. Pleural space: Unremarkable. No pleural effusion. No pneumothorax. Heart/Mediastinum: Unremarkable. No cardiomegaly. Bones/joints: Osteopenia. Partial visualization of plate fixation at the lower cervical spine. Remote rib fracture deformities laterally right 3rd through 5th ribs. Other findings: Surgical clips right upper quadrant. XR/XR chest 1V portable [id number] IMPRESSION: No acute cardiopulmonary process.
--- NOTE | 2019-06-28 22:04 | ECG_ITS ---
Measurements Intervals [place] Rate: 89 P: 65 [place]: 159 QRS: 56 QRSD: 88 T: 45 QT: 362 QTc: 442 SINUS RHYTHM POSSIBLE LEFT ATRIAL ENLARGEMENT [-0.1mV P WAVE IN V1/V2] Compared to ECG 06/08/2019 06:53:38 Sinus tachycardia no longer present Electronically Signed On 06-29-2019 9:32:40 CDT by Kendra Kenyon M.D. [email or web address]
--- NOTE | 2019-06-28 22:24 | W.ED.SOB ---
HPI - SOB/Dyspnea General: Chief Complaint: Shortness of Breath/Dyspnea Stated Complaint: SOB; DIZZY Time Seen by Provider: 06/28/19 22:20 History of Present Illness: HPI Narrative: Melissa is a 48-year-old female who comes in stating that her boyfriend wanted her checked out for heavy breathing. He thought that tonight she was breathing somewhat hard and so he wanted her to come here to the hospital to be checked for the COVID virus. Patient has had no fever, no chest pain, but she wanted to be certain she did not have this as her mother has been traveling to [place] in [place] and she thinks that she may have had this. She was never tested. Associated symptoms: Deny abdominal pain, chest congestion, chest pain, diaphoresis, dizziness, extremity pain, fever(s), hemoptysis, lightheadedness, nausea, orthopnea, palpitations, polydipsia, polyuria, syncope or vomiting Review of Systems Const: Denies: fever(s), chills, body aches, fatigue, malaise, night sweats or diaphoresis Eyes: Denies: change in vision, blurry vision or blind spots ENMT: Denies: throat pain, odynophagia, hoarseness, ear or mastoid pain, ear discharge, change in hearing or nasal discharge Card: Denies: chest pain, palpitations, irregular heart rhythm, lightheadedness, syncope, pre-syncope, dyspnea on exertion or orthopnea Resp: Reports: productive cough and non-productive cough; Denies: dyspnea, wheezing, hemoptysis or chest congestion GI: Denies: abdominal pain, nausea, vomiting, hematemesis, coffee ground emesis, heartburn, diarrhea, constipation, GI cramping, hematochezia or melena : Denies: flank pain, dysuria, urinary frequency, urinary urgency, oliguria, urinary incontinence or hematuria Musc: Denies: neck pain, back pain, extremity pain, extremity swelling, joint pain, joint swelling, joint redness, joint warmth or joint stiffness Skin/Breast: Denies: rash, pruritus, erythema, skin tenderness or jaundice Neuro: Denies: headache(s), numbness in extremities, weakness in extremities, sensory changes, lack of coordination, difficulty walking, dizziness, vertigo, confusion or Slurred speech present Endo: Denies: polyuria, polydipsia, tired all the time, cold intolerance, excessive sweating, flushing, hot flashes or heat intolerance Eric/Lymph: Denies: easy bruising, easy bleeding, petechiae, purpura or enlarged lymph nodes All/Imm: Denies: urticaria, throat swelling, tongue swelling, facial swelling or acute wheezing PFSH ED PFSH: Medical History Alcoholism Anemia Carpal tunnel syndrome Chronic back pain Chronic pancreatitis Cirrhosis Enteritis GERD (gastroesophageal reflux disease) H. pylori infection Hepatitis A Sciatica Surgical History H/O rotator cuff surgery H/O: hysterectomy History of appendectomy History of cholecystectomy Family History Denies family history of Diabetes CAD (coronary artery disease) Dementia Social History Smoking and tobacco status: current every day smoker Alcohol intake: current Desire information about alcohol rehabilitation?: No Counseling given: Yes Last alcohol use date: 02/15/19 Physical Exam Const: COMMON NORMALS: no acute distress, patient oriented x3, no limitations, healthy appearing and well nourished EXAM LIMITATIONS: no altered mental status GENERAL APPEARANCE: cooperative, well kempt and well developed HENMT: COMMON NORMALS: normocephalic, atraumatic, hearing grossly normal bilaterally, external ears normal, EAC's normal, Normal external nose present and moist oral mucous membranes HEAD & SCALP: normal to inspection, normocephalic and atraumatic FACE & SINUS: normal facial exam and face symmetric NOSE: Normal external nose present and Normal nares present EXTERNAL EAR: Yes external ears normal EXTERNAL AUDITORY CANAL: EAC's normal MOUTH: Normal oral and palatal mucosa present, lip normal and tongue normal Eye: COMMON NORMALS: Equal, round and reactive pupils present, EOMs intact bilaterally, conjunctivae normal and no scleral icterus GENERAL EYE: appearance normal, both eyes and all related structures ALIGNMENT: Yes alignment normal PERIORBITAL: periorbital findings normal EYELID: eyelids normal CONJUNCTIVA: Yes conjunctivae normal SCLERA: sclerae normal PUPIL: Yes Equal, round and reactive pupils present Neck/C-Spine: COMMON NORMALS: full ROM, no lymphadenopathy, supple, no meningeal signs and no JVD GENERAL: Yes normal visual inspection and Yes trachea midline CERVICAL SPINE: Yes cervical ROM normal Chest: COMMONS NORMALS: normal inspection of the chest and normal palpation of entire chest wall Resp: COMMON NORMALS: normal respiratory effort, No retractions, No use of accessory muscles and clear to auscultation bilaterally EFFORT & INSPECTION: Yes able to speak in complete sentences AUSCULTATION: clear to auscultation bilaterally, no crackles, no rales, no rhonchi and no wheezes Cardio: COMMON NORMALS: no JVD, regular rate, regular rhythm, S1 normal heart sound present, S2 normal heart sound present, No gallops present (Cardio), No clicks present (Cardio), No murmurs present (Cardio) and No rub (Cardio) RATE: regular rate RHYTHM: regular rhythm HEART SOUNDS: S1 normal heart sound present, S2 normal heart sound present, no click, no gallops, no murmurs and no rubs GI: COMMON NORMALS: Soft to palpation, non-tender, No hepatosplenomegaly present and no masses PALPATION: Yes Soft to palpation, No Tenderness to palpation present (GI), No Guarding due to palpation present (GI), No Rigid due to palpation, Yes No hepatosplenomegaly present, No Hernia present, No Palpable mass present and No Pulsatile mass present : COMMON NORMALS: Yes no CVA tenderness BLADDER/KIDNEY EXAM: Yes no CVA tenderness EXTERNAL FEMALE EXAM: No Hernia present Back/Pelvis: COMMON NORMALS: no CVA tenderness, thoracic and lumbar spine normal to inspection, no thoracic nor lumbar tenderness and thoraco-lumbar ROM normal Extremity: COMMON NORMALS: normal to inspection, full ROM, capillary refill normal, no joint enlargement, no clubbing, cyanosis or edema and no calf tenderness Neuro: COMMON NORMALS: patient oriented x3, CN's II-XII intact bilaterally, moves all extremities, no focal motor deficits and no sensory deficits noted MENINGEAL SIGNS: Yes no meningeal signs SPEECH: speech normal Psych: COMMON NORMALS: mental status grossly normal, Normal thought process present, cooperative, normal affect, speech normal and activity/motor behavior normal APPEARANCE: Yes well kempt SPEECH: Yes normal speech THOUGHT PROCESS: Normal thought process present Skin: COMMON NORMALS: no rashes or lesions noted, turgor normal, no jaundice, no petechiae and no mottling GENERAL SKIN EXAM: no rashes or lesions noted and turgor normal Course Vital Signs: Vital signs: Vital Signs Temperature 98.4 F 06/28/19 21:59 Pulse Rate 84 06/29/19 00:00 Respiratory Rate 20 H 06/29/19 00:00 Blood Pressure 122/78 06/28/19 21:59 Pulse Oximetry 97 06/29/19 00:00 MDM - SOB/Dyspnea MDM Narrative: Medical decision making narrative: 0100 Melissa states that she is tired of waiting for pain medication and is demanding something for her pain. When asked where she is hurting she states everywhere. I was told her at this time I would not give her anything for pain and she demanded to leave. She would not wait for discharge instructions or discharge information. She was of sound mind and have the capacity to make this decision but understood she was leaving AGAINST MEDICAL ADVICE. The patient's ABGs were abnormal but every time she was getting blood drawn or stuck she would hyperventilate and cry and become upset. I believe that was what caused her abnormal ABG. Nonetheless the remaining labs are stable there is no sign of acute coronary syndrome or pulmonary embolism. The patient did understand she could return if she changed her mind and wished for further treatment or care. Lab Data: Labs: Lab Results 06/28/19 06/28/19 06/28/19 Range/Units 22:15 22:37 23:29 WBC 6.0 (4.0-10.0) 10^3/ uL RBC 2.99 L (4.1-5.3) 10^6/u L Hgb 11.1 L (11.5-15.3) g/dL Hct 32.9 L (37.0-47.0) % MCV 110.0 H (81-99) fL MCH 37.1 H (28.0-34.0) pg MCHC 33.7 (30.0-36.0) g/dL RDW 15.2 H (12.1-15.1) % Plt Count 373 (130-400) 10^3/c mm MPV 10.1 (7.4-10.4) fL Neut % (Auto) 42.8 % Lymph % (Auto) 37.3 % [place] % (Auto) 13.8 % Eos % (Auto) 4.2 % Baso % (Auto) 1.7 % Neut # (Auto) 2.6 (1.8-7.7) 10^3/u L Lymph # (Auto) 2.2 (0.8-4.8) 10^3/u L [place] # (Auto) 0.8 (0.2-0.9) 10^3/u L Eos # (Auto) 0.3 (0.0-0.8) 10^3/u L Baso # (Auto) 0.1 (0.0-0.1) 10^3/u L Nucleated RBC % (a uto) 0 % Nucleated RBCs # 0.0 /100WBC PT (10.5-13.3) SECO NDS INR (0.8-1.2) D-Dimer (0-0.59) ug/mIFE U Specimen Type Arterial Sample Site Brachial, right ABG pH 7.72 H* (7.35-7.45) ABG pCO2 14.5 L* (35-45) mmHg ABG pO2 120.0 H (80.0-100.0) mmH g ABG HCO3 18.6 L (22-26) mmol/L ABG Base Excess 1.5 (-2.0-2.0) mmol/ L Tato Test N/a Hematocrit 38.3 (37-47) % O2 Delivery Device Room air FiO2 21.0 % Handkerchief Folder ID [email or web address] Sodium (136-145) mmol/L Potassium (3.5-5.1) mmol/L Chloride (98-107) mmol/L Carbon Dioxide (22-29) mmol/L Anion Gap (5-19) BUN (6-20) mg/dL Creatinine (0.5-0.9) mg/dL GFR Calculation (90-130) mL/min Glucose (65-115) mg/dL Calculated Osmolal ity (285-295) mOsm/k g Calcium (8.5-10.5) mg/dL Magnesium (1.7-2.3) mg/dL Total Bilirubin (0.15-1.2) mg/dL AST (0-32) U/L ALT (0-33) U/L Alkaline Phosphata se (35-105) IU/L Troponin T Baselin e (0-10) ng/mL Total Protein (6.6-8.7) g/dL Albumin (3.5-5.2) g/dL Globulin (1.3-4.6) g/dL Urine Color Yellow (Yellow) Urine Appearance Sl hazy (CLEAR) Urine pH 9 H (5-7) Ur Specific Gravit y 1.010 (1.005-1.030) Urine Protein Neg (Negative) Urine Glucose (UA) Norm (Normal) Urine Ketones 1+ H (Negative) Urine Blood Neg (Negative) Urine Nitrate Negative (Negative) Urine Bilirubin Neg (NEGATIVE) Prot Sulfosalicyli c Acd Negative (Negative) Urine Urobilinogen Norm (Negative) mg/dL Ur Leukocyte Susan ase Negative (Negative) Urine RBC Rare (0-2) /hpf Urine WBC 5-10 H (0-5) /hpf Ur Squamous Epith Cells 25-40 H (0-5) Urine Bacteria 1+ H (NONE) 06/28/19 06/28/19 06/28/19 Range/Units 23:29 23:29 23:29 WBC (4.0-10.0) 10^3/ uL RBC (4.1-5.3) 10^6/u L Hgb (11.5-15.3) g/dL Hct (37.0-47.0) % MCV (81-99) fL MCH (28.0-34.0) pg MCHC (30.0-36.0) g/dL RDW (12.1-15.1) % Plt Count (130-400) 10^3/c mm MPV (7.4-10.4) fL Neut % (Auto) % Lymph % (Auto) % [place] % (Auto) % Eos % (Auto) % Baso % (Auto) % Neut # (Auto) (1.8-7.7) 10^3/u L Lymph # (Auto) (0.8-4.8) 10^3/u L [place] # (Auto) (0.2-0.9) 10^3/u L Eos # (Auto) (0.0-0.8) 10^3/u L Baso # (Auto) (0.0-0.1) 10^3/u L Nucleated RBC % (a uto) % Nucleated RBCs # /100WBC PT 13.10 (10.5-13.3) SECO NDS INR 0.96 (0.8-1.2) D-Dimer (0-0.59) ug/mIFE U Specimen Type Sample Site ABG pH (7.35-7.45) ABG pCO2 (35-45) mmHg ABG pO2 (80.0-100.0) mmH g ABG HCO3 (22-26) mmol/L ABG Base Excess (-2.0-2.0) mmol/ L Tato Test Hematocrit (37-47) % O2 Delivery Device FiO2 % Handkerchief Folder ID Sodium 136 (136-145) mmol/L Potassium 4.1 (3.5-5.1) mmol/L Chloride 99 (98-107) mmol/L Carbon Dioxide 20 L (22-29) mmol/L Anion Gap 21.1 H (5-19) BUN 13 (6-20) mg/dL Creatinine 1.2 H (0.5-0.9) mg/dL GFR Calculation 47.6 L (90-130) mL/min Glucose 94 (65-115) mg/dL Calculated Osmolal ity 278 L (285-295) mOsm/k g Calcium 12.9 H (8.5-10.5) mg/dL Magnesium 1.7 (1.7-2.3) mg/dL Total Bilirubin 0.3 (0.15-1.2) mg/dL AST 28 (0-32) U/L ALT 16 (0-33) U/L Alkaline Phosphata se 86 (35-105) IU/L Troponin T Baselin e 6 (0-10) ng/mL Total Protein 7.8 (6.6-8.7) g/dL Albumin 4.7 (3.5-5.2) g/dL Globulin 3.1 (1.3-4.6) g/dL Urine Color (Yellow) Urine Appearance (CLEAR) Urine pH (5-7) Ur Specific Gravit y (1.005-1.030) Urine Protein (Negative) Urine Glucose (UA) (Normal) Urine Ketones (Negative) Urine Blood (Negative) Urine Nitrate (Negative) Urine Bilirubin (NEGATIVE) Prot Sulfosalicyli c Acd (Negative) Urine Urobilinogen (Negative) mg/dL Ur Leukocyte Susan ase (Negative) Urine RBC (0-2) /hpf Urine WBC (0-5) /hpf Ur Squamous Epith Cells (0-5) Urine Bacteria (NONE) 06/28/19 06/28/19 Range/Units 23:29 23:42 WBC (4.0-10.0) 10^3/ uL RBC (4.1-5.3) 10^6/u L Hgb (11.5-15.3) g/dL Hct (37.0-47.0) % MCV (81-99) fL MCH (28.0-34.0) pg MCHC (30.0-36.0) g/dL RDW (12.1-15.1) % Plt Count (130-400) 10^3/c mm MPV (7.4-10.4) fL Neut % (Auto) % Lymph % (Auto) % [place] % (Auto) % Eos % (Auto) % Baso % (Auto) % Neut # (Auto) (1.8-7.7) 10^3/u L Lymph # (Auto) (0.8-4.8) 10^3/u L [place] # (Auto) (0.2-0.9) 10^3/u L Eos # (Auto) (0.0-0.8) 10^3/u L Baso # (Auto) (0.0-0.1) 10^3/u L Nucleated RBC % (a uto) % Nucleated RBCs # /100WBC PT (10.5-13.3) SECO NDS INR (0.8-1.2) D-Dimer 0.51 (0-0.59) ug/mIFE U Specimen Type Venous Sample Site Not specified ABG pH 7.50 H (7.35-7.45) ABG pCO2 28.0 L (35-45) mmHg ABG pO2 53.0 L (80.0-100.0) mmH g ABG HCO3 21.7 L (22-26) mmol/L ABG Base Excess -0.6 (-2.0-2.0) mmol/ L Tato Test N/a Hematocrit 33.8 L (37-47) % O2 Delivery Device None FiO2 21.0 % Handkerchief Folder ID [email or web address] Sodium (136-145) mmol/L Potassium (3.5-5.1) mmol/L Chloride (98-107) mmol/L Carbon Dioxide (22-29) mmol/L Anion Gap (5-19) BUN (6-20) mg/dL Creatinine (0.5-0.9) mg/dL GFR Calculation (90-130) mL/min Glucose (65-115) mg/dL Calculated Osmolal ity (285-295) mOsm/k g Calcium (8.5-10.5) mg/dL Magnesium (1.7-2.3) mg/dL Total Bilirubin (0.15-1.2) mg/dL AST (0-32) U/L ALT (0-33) U/L Alkaline Phosphata se (35-105) IU/L Troponin T Baselin e (0-10) ng/mL Total Protein (6.6-8.7) g/dL Albumin (3.5-5.2) g/dL Globulin (1.3-4.6) g/dL Urine Color (Yellow) Urine Appearance (CLEAR) Urine pH (5-7) Ur Specific Gravit y (1.005-1.030) Urine Protein (Negative) Urine Glucose (UA) (Normal) Urine Ketones (Negative) Urine Blood (Negative) Urine Nitrate (Negative) Urine Bilirubin (NEGATIVE) Prot Sulfosalicyli c Acd (Negative) Urine Urobilinogen (Negative) mg/dL Ur Leukocyte Susan ase (Negative) Urine RBC (0-2) /hpf Urine WBC (0-5) /hpf Ur Squamous Epith Cells (0-5) Urine Bacteria (NONE) EKG Data^: EKG 1: Attestation: I personally reviewed and interpreted this EKG as follows: EKG Interpretation Date: 06/28/19 EKG interpretation time: 22:31 Interpretation: Normal sinus rhythm at 89 beats a minute, no acute ST-T wave changes. Discharge Plan Discharge Patient Disposition: Left Against Medical Advice Clinical Impression: Acute dyspnea Condition: Stable Prescriptions: No Action pantoprazole 40 mg Tablet,Delayed Release (Dr/Ec) 40 mg PO BIDWM Qty: 60 RF: 0 thiamine mononitrate (vit B1) [Vitamin B-1 (mononitrate)] 100 mg Tablet 100 mg PO DAILY Qty: 30 RF: 0 ferrous sulfate 325 mg (65 mg iron) tablet,delayed release (DR/EC) 325 mg PO BID Qty: 60 RF: 0 ondansetron HCl 4 mg tablet 4 mg PO Q8H PRN (Reason: nausea and vomiting) Qty: 10 RF: 0 fluoxetine 20 mg Capsule 20 mg PO DAILY 30 Days Qty: 30 RF: 1 trazodone 100 mg tablet 100 mg PO BEDTIME 30 Days Qty: 30 RF: 1 acetaminophen [Tylenol Extra Strength] 500 mg Tablet 500 mg PO Q6H PRN (Reason: Pain) RF: 0 Reglan 10 mg tablet 10 mg PO Q6H PRN (Reason: nausea and vomiting) Qty: 20 RF: 0 [place] 5-325 mg tablet 1 tab PO Q6H PRN (Reason: Pain) Qty: 10 RF: 0 Carafate 1 gram Tablet 1 g PO TID RF: 0 oxycodone-acetaminophen 10-325 mg Tablet 1 tab PO Q6H PRN (Reason: Pain) RF: 0 Referrals: Maggie Serna, DPM [Primary Care Provider] - Coding Level of Care Code ED Radiology Physician Assistant for g Fwd Exam Comprehensive
[2019-06-28 22:27] LABS: Arterial Blood Gas Hematocrit 38.3 % (37-47); Base Excess ABG 1.5 mmol/L (-2.0-2.0); Blood Gas Sample Site Brachial, right; Blood Gas Sample Type Arterial; HCO3 ABG 18.6 mmol/L (22-26); Oxygen Device ROOM AIR
[2019-06-28 22:28] LABS: ABG PCO2 14.5 mmHg (35-45); ABG PH Result 7.72 (7.35-7.45)
[2019-06-28 23:15] LABS: Bilirubin Urine Neg (NEGATIVE); Blood Urine Neg (Negative); Glucose Urine UA Norm (Normal); Ketones Urine 1+ (Negative); Leukocyte Esterase Urine Negative (Negative); Nitrate Urine Negative (Negative); Protein Urine Neg (Negative); Sulfosalicylic Acid Urine Negative (Negative); Urine Appearance SL Hazy (CLEAR); Urine Color Yellow (Yellow); Urobilinogen Urine Norm (Negative); pH Urine 9 (5-7)
[2019-06-28 23:16] LABS: RBC Urine RARE /hpf (0-2); Squamous Epithelial Cell Urine 25-40 (0-5)
[2019-06-28 23:17] LABS: Add Urine Culture? No; Bacteria Urine 1+
[2019-06-28 23:37] LABS: Basophils # 0.1 10^3/uL (0.0-0.1); Basophils % 1.7 %; Eosinophils # 0.3 10^3/uL (0.0-0.8); Eosinophils % 4.2 %; Hematocrit 32.9 % (37.0-47.0); Hemoglobin 11.1 g/dL (11.5-15.3); Lymphocytes # 2.2 10^3/uL (0.8-4.8); Lymphocytes % 37.3 %; Mean Corpuscular HGB Conc 33.7 g/dL (30.0-36.0); Mean Corpuscular Hemoglobin 37.1 pg (28.0-34.0); Mean Platelet Volume 10.1 fL (7.4-10.4); Monocytes # 0.8 10^3/uL (0.2-0.9); Monocytes % 13.8 %; Neutrophils # 2.6 10^3/uL (1.8-7.7); Neutrophils % 42.8 %; Nucleated Red Blood Cells % 0 %; Platelet Count 373 10^3/cmm (130-400); Red Blood Count 2.99 10^6/uL (4.1-5.3); Red Cell Distribution Width 15.2 % (12.1-15.1)
[2019-06-28 23:44] LABS: INR 0.96 (0.8-1.2)
[2019-06-28 23:48] LABS: Arterial Blood Gas Hematocrit 33.8 % (37-47); Base Excess ABG -0.6 mmol/L (-2.0-2.0); Blood Gas Sample Site Not specified; Blood Gas Sample Type Venous; HCO3 ABG 21.7 mmol/L (22-26)
[2019-06-28 23:49] LABS: Alanine Aminotransferase 16 U/L (0-33); Albumin Level 4.7 g/dL (3.5-5.2); Alkaline Phosphatase 86 IU/L (35-105); Anion Gap 21.1 (5-19); Blood Urea Nitrogen 13 mg/dL (6-20); Calcium 12.9 mg/dL (8.5-10.5); Carbon Dioxide 20 mmol/L (22-29); Chloride 99 mmol/L (98-107); Globulin 3.1 g/dL (1.3-4.6); Glomerular Filtration Rate 47.6 mL/min (90-130); Glucose 94 mg/dL (65-115); Magnesium 1.7 mg/dL (1.7-2.3); Osmolality Calculated 278 mOsm/kg (285-295); Potassium 4.1 mmol/L (3.5-5.1); Sodium 136 mmol/L (136-145); Total Bilirubin 0.3 mg/dL (0.15-1.2); Total Protein 7.8 g/dL (6.6-8.7)
[2019-06-28 23:54] VITALS: PULSE 80; RESP 20; O2SAT 96
[2019-06-28] MEDS: ipratropium-albuterol 3 mL Neb INHALATION (23:54)
[2019-06-29] VITALS: PULSE 84; RESP 20; O2SAT 97
[2019-06-29 00:17] LABS: Aspartate Amino Transferase 28 U/L (0-32)
[2019-06-29 00:19] LABS: Troponin(5th) Baseline 6 ng/mL (0-10)
[2019-06-29 00:38] LABS: D Dimer 0.51 ug/mIFEU (0-0.59)
== END 2019-06-28 22:45 | disposition left against medical advice (07) ==
PROVIDERS: Emergency Provider Emergency Medicine; PCP Nurse Practitioner
DX: R06.00 Dyspnea, unspecified (principal); Z53.21 Procedure and treatment not carried out due to patient leaving prior to being seen by health care provider; F17.210 Nicotine dependence, cigarettes, uncomplicated
CPT/HCPCS: 12345; 36600; 71045; 80053; 81001; 82803; 83735; 84484; 85025; 85378; 85610; 93005; 94640; 99282; 99284; A9270

== ENCOUNTER 2020-02-23 22:54 | Emergency (ER) | payer MEDICAID, SELFPAY ==
--- NOTE | 2020-02-23 22:56 | XRR_ITS ---
PROCEDURE INFORMATION: Exam: XR Right Hand Exam date and time: 02/23/2020 11:14 PM Age: 49 years old Clinical indication: Pain and injury or trauma; Blunt trauma (contusions or hematomas); Right; Index finger; Finger(s); Patient HX: Fall pain in 1st digit TECHNIQUE: Imaging protocol: XR Right hand. Views: 3 or more views. COMPARISON: No relevant prior studies available. FINDINGS: Bones/joints: There is an oblique fracture through the medial corner of the base of the proximal phalanx of the thumb. A 5 mm fracture fragment is displaced about 2.5 mm medially. Soft tissues: Normal. XR/XR hand RT min 3V* [id number] IMPRESSION: Fracture of the base of the proximal phalanx of the thumb.
[2020-02-23 23:01] VITALS: BP 120/77; PULSE 108; RESP 24; TEMP 36.4; O2SAT 97; BMI 29.3
[2020-02-23 23:08] VITALS: PULSE 93
--- NOTE | 2020-02-23 23:18 | W.ED.EXTPRO ---
HPI - Extremity Problem General: Chief complaint: Extremity Injury, Upper Stated complaint: right hand injury Time Seen by Provider: 02/23/20 23:14 History of Present Illness: HPI Narrative: Patient hurt right thumb while playing a game of twister. Complaint: joint pain Onset (ago): hour(s) Pain Consistency: constant Location: right and upper extremity Severity scale (1-10): 7 Quality: aching Radiation: none Relieving factors: immobilization Exacerbating factors: range of motion and exertion Associated symptoms: Reports no associated symptoms; Deny fever(s) Review of Systems Const: Denies: fever(s) or chills Musc: Reports: joint pain (Base of right thumb) PFS ED PFSH: Medical History (Updated 02/23/20 @ 23:36 by MALDONADO Tobin) Alcoholism Anemia Carpal tunnel syndrome Chronic back pain Chronic pancreatitis Cirrhosis Enteritis GERD (gastroesophageal reflux disease) H. pylori infection Hepatitis A Sciatica Surgical History H/O rotator cuff surgery H/O: hysterectomy History of appendectomy History of cholecystectomy Family History Denies family history of Diabetes CAD (coronary artery disease) Dementia Social History Smoking and tobacco status: current every day smoker Alcohol intake: current Desire information about alcohol rehabilitation?: No Counseling given: Yes Last alcohol use date: 02/15/19 Physical Exam Const: COMMON NORMALS: no acute distress Extremity: RIGHT UPPER EXTREMITY: Yes hand & digits (Right thumb with significant tenderness at the base. Is swelled. Decrease) Psych: COMMON NORMALS: mental status grossly normal Course Vital Signs: Vital signs: Vital Signs Temperature 97.5 F L 02/23/20 23:01 Pulse Rate 93 02/23/20 23:08 Respiratory Rate 24 H 02/23/20 23:01 Blood Pressure 120/77 02/23/20 23:01 Pulse Oximetry 97 02/23/20 23:01 MDM - Extremity (Nontraumatic) MDM Narrative: Medical decision making narrative: Patient has a small avulsion fracture base MIP joint with small subluxation possibly on the AP view Discharge Plan Discharge Patient Disposition: Home Clinical Impression: Avulsion fracture of thumb Qualifiers: Encounter type: initial encounter Fracture type: closed Laterality: right Qualified Code(s): S62.501A - Fracture of unspecified phalanx of right thumb, initial encounter for closed fracture Condition: Stable Prescriptions: No Action pantoprazole 40 mg Tablet,Delayed Release (Dr/Ec) 40 mg PO BIDWM Qty: 60 RF: 0 thiamine mononitrate (vit B1) [Vitamin B-1 (mononitrate)] 100 mg Tablet 100 mg PO DAILY Qty: 30 RF: 0 ferrous sulfate 325 mg (65 mg iron) tablet,delayed release (DR/EC) 325 mg PO BID Qty: 60 RF: 0 ondansetron HCl 4 mg tablet 4 mg PO Q8H PRN (Reason: nausea and vomiting) Qty: 10 RF: 0 fluoxetine 20 mg Capsule 20 mg PO DAILY 30 Days Qty: 30 RF: 1 trazodone 100 mg tablet 100 mg PO BEDTIME 30 Days Qty: 30 RF: 1 acetaminophen [Tylenol Extra Strength] 500 mg Tablet 500 mg PO Q6H PRN (Reason: Pain) RF: 0 Reglan 10 mg tablet 10 mg PO Q6H PRN (Reason: nausea and vomiting) Qty: 20 RF: 0 [place] 5-325 mg tablet 1 tab PO Q6H PRN (Reason: Pain) Qty: 10 RF: 0 Carafate 1 gram Tablet 1 g PO TID RF: 0 oxycodone-acetaminophen 10-325 mg Tablet 1 tab PO Q6H PRN (Reason: Pain) RF: 0 Discharge Orders: Discharge ED (Routine); Ordered 02/23/20 Ordered By: Ozzie Leonardo Discharge Diet: Usual diet Discharge Activity: Increase activity as tolerated Patient Instructions: Finger Fracture (ED) Activity Restrictions/Additional Instructions: Follow-up with medical provider as directed. Take medications as prescribed. Return to the ER or your medical provider if condition worsens. Please read and understand discharge instructions. If any questions ask please. Follow-up with orthopedics as scheduled by the hospital you will be notified appointment time wear splint Coding Level of Care Code ED Java Portal Developer for Shila Fwjordan Exam Expanded Problem Focused
[2020-02-23] MEDS: HYDROcodone-acetaminophen 7.5-325 mg Tablet 1 TAB PO (23:26)
[2020-02-24 00:16] VITALS: BP 115/89; PULSE 98; RESP 17; O2SAT 98
[2020-02-24] MEDS: HYDROcodone-acetaminophen 5-325 mg Tablet 1 TAB PO (00:20)
--- NOTE | 2020-02-24 10:33 | DCPLANNER ---
labor relations manager had message to schedule a follow up appointment for patient with ortho. labor relations manager called the ortho clinic, spoke with Bernie, gave clinic patients information. labor relations manager was told that patients information would be printed and reviewed. Clinic will call patient with appointment information.
--- NOTE | 2020-02-27 11:24 | DCPLANNER ---
Patient had a follow up appointment for patient with ortho on 02.25.20 - patient did attend appointment.
== END 2020-02-24 00:16 | disposition home or self-care (01) ==
PROVIDERS: Emergency Provider Nurse Practitioner Family
DX: F17.210 Nicotine dependence, cigarettes, uncomplicated (principal); S62.514A Nondisplaced fracture of proximal phalanx of right thumb, initial encounter for closed fracture; X58.XXXA Exposure to other specified factors, initial encounter
CPT/HCPCS: 12345; 73130; 99281; 99283

== ENCOUNTER 2020-02-24 10:36 | Emergency (ER) | payer MEDICAID, SELFPAY ==
[2020-02-24 10:40] VITALS: BP 128/79; PULSE 99; RESP 18; TEMP 37; O2SAT 100; BMI 29.2
--- NOTE | 2020-02-24 10:41 | W.ED.UPPEXIN ---
HPI - Extremity Injury (Upper) General: Chief Complaint: Recheck/Abnormal Lab/Rx Stated Complaint: R HAND INJURY/PAIN Time Seen by Provider: 02/24/20 10:40 Source: patient Mode of arrival: ambulatory Limitations: no limitations History of Present Illness: HPI narrative: Patient is a 49-year-old female who presents to ED today with complaints of pain to a recent right thumb fracture. Patient was seen at our facility yesterday after she injured her right thumb playing a game of Twister. She states she was diagnosed with a fracture but was not prescribed anything for pain. She has an appointment with orthopedics tomorrow for follow-up. MD complaint: injury to: right and finger Onset (ago): hour(s) (yesterday) Review of Systems Musc: Reports: other (R thumb pain) Neuro: Denies: sensory changes PFS ED PFSH: Medical History (Updated 02/24/20 @ 10:50 by ARLYN Finley) Alcoholism Anemia Carpal tunnel syndrome Chronic back pain Chronic pancreatitis Cirrhosis Enteritis GERD (gastroesophageal reflux disease) H. pylori infection Hepatitis A Sciatica Surgical History H/O rotator cuff surgery H/O: hysterectomy History of appendectomy History of cholecystectomy Family History Denies family history of Diabetes CAD (coronary artery disease) Dementia Social History Smoking and tobacco status: current every day smoker Alcohol intake: current Desire information about alcohol rehabilitation?: No Counseling given: Yes Last alcohol use date: 02/15/19 Physical Exam Const: COMMON NORMALS: patient oriented x3, no limitations and alert GENERAL APPEARANCE: cooperative ORIENTATION/CONSCIOUSNESS: Yes awake, Yes oriented to person, Yes oriented to place and Yes oriented to time OTHER: crying due to pain Extremity: OTHER: splint present to R UE; thumb with normal sensation and cap refill; splint does not appear too tight Neuro: COMMON NORMALS: patient oriented x3 SENSORIUM/ORIENTATION: Yes alert, Yes oriented to person, Yes oriented to place and Yes oriented to time Course Vital Signs: Vital signs: Vital Signs Temperature 98.6 F 02/24/20 10:40 Pulse Rate 107 H 02/24/20 10:59 Respiratory Rate 20 H 02/24/20 10:59 Blood Pressure 152/79 02/24/20 10:59 Pulse Oximetry 98 02/24/20 10:59 MDM - Extremity Injury (Upper) MDM Narrative: Medical decision making narrative: Patient will be given RX for pain meds. Recommend she keep her appointment tomorrow for orthopedic followup. Patient NV intact at this time. Discharge Plan Discharge Patient Disposition: Home Clinical Impression: Fracture of proximal phalanx of finger of right hand Condition: Stable Prescriptions: New hydrocodone-acetaminophen 5-325 mg tablet 1 tab PO Q6H PRN (Reason: pain) Qty: 10 RF: 0 No Action pantoprazole 40 mg Tablet,Delayed Release (Dr/Ec) 40 mg PO BIDWM Qty: 60 RF: 0 thiamine mononitrate (vit B1) [Vitamin B-1 (mononitrate)] 100 mg Tablet 100 mg PO DAILY Qty: 30 RF: 0 ferrous sulfate 325 mg (65 mg iron) tablet,delayed release (DR/EC) 325 mg PO BID Qty: 60 RF: 0 ondansetron HCl 4 mg tablet 4 mg PO Q8H PRN (Reason: nausea and vomiting) Qty: 10 RF: 0 fluoxetine 20 mg Capsule 20 mg PO DAILY 30 Days Qty: 30 RF: 1 trazodone 100 mg tablet 100 mg PO BEDTIME 30 Days Qty: 30 RF: 1 acetaminophen [Tylenol Extra Strength] 500 mg Tablet 500 mg PO Q6H PRN (Reason: Pain) RF: 0 Reglan 10 mg tablet 10 mg PO Q6H PRN (Reason: nausea and vomiting) Qty: 20 RF: 0 [place] 5-325 mg tablet 1 tab PO Q6H PRN (Reason: Pain) Qty: 10 RF: 0 Carafate 1 gram Tablet 1 g PO TID RF: 0 oxycodone-acetaminophen 10-325 mg Tablet 1 tab PO Q6H PRN (Reason: Pain) RF: 0 tramadol 50 mg tablet 50 mg PO TID PRN (Reason: pain) Qty: 10 RF: 0 Discharge Orders: Discharge ED (Routine); Ordered 02/24/20 Ordered By: Delmy Gonzalez Activity Restrictions/Additional Instructions: Keep your appointment with orthopedics tomorrow. Coding Level of Care Code ED Instructor Extension Work for Shila Mcallister
[2020-02-24 10:45] VITALS: BP 128/79; PULSE 101; RESP 20; O2SAT 99
[2020-02-24 10:50] VITALS: RESP 20; O2SAT 100
[2020-02-24] MEDS: morphine 4 mg/mL SDV 1 mL IM (10:50)
[2020-02-24 10:59] VITALS: BP 152/79; PULSE 107; RESP 20; O2SAT 98
--- NOTE | 2020-02-24 11:07 | PC.NURSE ---
Pt requested sling upon being discharged. Pt placed in sling.
== END 2020-02-24 11:02 | disposition home or self-care (01) ==
PROVIDERS: Emergency Provider Physician Assistant
DX: S62.514A Nondisplaced fracture of proximal phalanx of right thumb, initial encounter for closed fracture (principal); X58.XXXA Exposure to other specified factors, initial encounter; F17.210 Nicotine dependence, cigarettes, uncomplicated
CPT/HCPCS: 12345; 96372; 99282; 99283; J2270

== ENCOUNTER 2020-02-25 14:48 | Outpatient (CLI) | payer MEDICAID, SELFPAY | END 2020-02-25 14:49 | disposition home or self-care (01) | LOC: SPT 14:49 | PROVIDERS: Visit Provider Specialist | DX: Z46.89 Encounter for fitting and adjustment of other specified devices (principal); S62.501D Fracture of unspecified phalanx of right thumb, subsequent encounter for fracture with routine healing; X58.XXXD Exposure to other specified factors, subsequent encounter | CPT/HCPCS: 97760; L3809 ==

== ENCOUNTER 2020-03-21 03:23 | Emergency (ER) | payer MEDICAID, SELFPAY ==
[2020-03-21 03:27] VITALS: BP 133/94; PULSE 114; RESP 18; TEMP 36.4; O2SAT 96; BMI 28.3
--- NOTE | 2020-03-21 03:52 | XRR_ITS ---
PROCEDURE INFORMATION: Exam: XR Right Hand Exam date and time: 03/21/2020 4:00 AM Age: 49 years old Clinical indication: Injury or trauma; Fall; Blunt trauma (contusions or hematomas); Finger; Right; Thumb TECHNIQUE: Imaging protocol: XR Right hand. Views: 3 or more views. COMPARISON: CR XR hand RT min 3V* [id number] 02/23/2020 11:20 PM FINDINGS: Tubes, catheters and devices: Overlying cast/splint obscures fine bony detail. Bones/joints: Redemonstrated is the previously seen fracture of the base of the proximal phalanx of the right thumb. The fracture line is still visible. Mild displacement is similar to the prior exam. No other definite acute fracture at this time. Soft tissues: No significant acute finding. XR/XR hand RT min 3V* [id number] IMPRESSION: 1. Redemonstrated is the previously seen fracture of the base of the proximal phalanx of the right thumb. 2. No other definite acute fracture at this time.
--- NOTE | 2020-03-21 03:52 | ED_ITS ---
HPI - Fall General: Chief Complaint: Fall Stated Complaint: fall Time Seen by Provider: 03/21/20 03:29 History of Present Illness: HPI Narrative: 49-year-old female who fell at home. She states that she fell over hand tell that she had been over to sweet pickle maker on the floor. She had surgery 2 weeks ago on her right thumb, and felt a pop in that right thumb area and has had increased pain. She notes that she was not really in pain prior to the fall. She is in a splint. Her for hand surgery follow-up appointment is on 03/25. She denies any other injury. complaint: fall Onset (ago): hour(s) Fall from: standing Fall witnessed: no Place fall occurred: home Loss of consciousness: None Prolonged down time: no Location of injury - extremities: Right: hand Associated symptoms-after fall: Denies chest pain, confusion or headache(s) Review of Systems Const: Denies: fever(s), chills or body aches Card: Denies: chest pain or palpitations Resp: Denies: dyspnea or productive cough Neuro: Denies: headache(s), dizziness or confusion PFSH ED PFSH: Medical History (Updated 03/21/20 @ 04:35 by Lio Duran DO) Alcoholism Anemia Carpal tunnel syndrome Chronic back pain Chronic pancreatitis Cirrhosis Enteritis GERD (gastroesophageal reflux disease) H. pylori infection Hepatitis A Sciatica Surgical History H/O rotator cuff surgery H/O: hysterectomy History of appendectomy History of cholecystectomy Family History Denies family history of Diabetes CAD (coronary artery disease) Dementia Social History Smoking and tobacco status: current every day smoker Alcohol intake: current Desire information about alcohol rehabilitation?: No Counseling given: Yes Last alcohol use date: 02/15/19 Physical Exam Const: COMMON NORMALS: no acute distress and patient oriented x3 Chest: COMMONS NORMALS: normal inspection of the chest Resp: COMMON NORMALS: normal respiratory effort, No use of accessory muscles a nd clear to auscultation bilaterally AUSCULTATION: clear to auscultation bilaterally Cardio: COMMON NORMALS: regular rate and regular rhythm RATE: regular rate RHYTHM: regular rhythm Extremity: NARRATIVE EXTREMITY EXAM: Exam of the right upper extremity reveals a thumb spica plaster splint present. There is no breakdown of the splint. Thumb is in good position. Sensation is intact. Neuro: COMMON NORMALS: patient oriented x3 Course Vital Signs: Vital signs: Vital Signs Temperature 97.6 F 03/21/20 03:27 Pulse Rate 97 03/21/20 04:43 Respiratory Rate 17 03/21/20 04:43 Blood Pressure 141/108 03/21/20 04:43 Pulse Oximetry 98 03/21/20 04:43 MDM - Fall MDM Narrative: Medical decision making narrative: X-ray of the hand reveals an intra-articular fracture of the base of the first proximal phalanx. Is minimal displacement. It was present on the prior exam. There is some postop change. Again, she has an appointment with her surgeon in 4 days. We do not have hand surgery facilities here. This is a nonemergent fracture, and she has a splint. We will have her follow-up as scheduled. Discharge Plan Discharge Patient Disposition: Home Clinical Impression: Fracture of proximal phalanx of right thumb Qualifiers: Encounter type: subsequent encounter Fracture type: closed Fracture alignment: nondisplaced Fracture healing: with routine healing Qualified Code(s): S62.514D - Nondisplaced fracture of proximal phalanx of right thumb, subsequent encounter for fracture with routine healing Condition: Stable Prescriptions: New tramadol 100 mg tablet 100 mg PO Q8H PRN (Reason: pain) Qty: 10 RF: 0 No Action (DME) FAST FORM THUMB SPICA See Rx Instructions .Route .MEDSUPPLY Qty: 1 RF: 0 meloxicam 15 mg tablet 15 mg PO DAILY Qty: 30 RF: 0 hydrocodone-acetaminophen 5-325 mg tablet 1 tab PO Q6H PRN (Reason: pain) 7 Days Qty: 10 RF: 0 pantoprazole 40 mg Tablet,Delayed Release (Dr/Ec) 40 mg PO BIDWM Qty: 60 RF: 0 thiamine mononitrate (vit B1) [Vitamin B-1 (mononitrate)] 100 mg Tablet 100 mg PO DAILY Qty: 30 RF: 0 ferrous sulfate 325 mg (65 mg iron) tablet,delayed release (DR/EC) 325 mg PO BID Qty: 60 RF: 0 ondansetron HCl 4 mg tablet 4 mg PO Q8H PRN (Reason: nausea and vomiting) Qty: 10 RF: 0 fluoxetine 20 mg Capsule 20 mg PO DAILY 30 Days Qty: 30 RF: 1 trazodone 100 mg tablet 100 mg PO BEDTIME 30 Days Qty: 30 RF: 1 acetaminophen [Tylenol Extra Strength] 500 mg Tablet 500 mg PO Q6H PRN (Reason: Pain) RF: 0 Reglan 10 mg tablet 10 mg PO Q6H PRN (Reason: nausea and vomiting) Qty: 20 RF: 0 [place] 5-325 mg tablet 1 tab PO Q6H PRN (Reason: Pain) Qty: 10 RF: 0 Carafate 1 gram Tablet 1 g PO TID RF: 0 oxycodone-acetaminophen 10-325 mg Tablet 1 tab PO Q6H PRN (Reason: Pain) RF: 0 tramadol 50 mg tablet 50 mg PO TID PRN (Reason: pain) Qty: 10 RF: 0 Discharge Orders: Discharge ED (Routine); Ordered 03/21/20 Ordered By: Lio Duran Discharge Diet: Advance as tolerated Discharge Activity: Limit activity as instructed Activity Restrictions/Additional Instructions: Follow-up with your surgeon on 03/25 as scheduled. Coding Level of Care Code ED Dispatcher Service Chief for Shila Fwjordan Exam Expanded Problem Focused
[2020-03-21] MEDS: oxyCODONE-APAP 5-325 mg Tablet 2 TAB PO (03:57)
[2020-03-21 04:43] VITALS: BP 141/108; PULSE 97; RESP 17; O2SAT 98
== END 2020-03-21 04:43 | disposition home or self-care (01) ==
PROVIDERS: Emergency Provider Emergency Medicine
DX: S62.514A Nondisplaced fracture of proximal phalanx of right thumb, initial encounter for closed fracture (principal); F17.210 Nicotine dependence, cigarettes, uncomplicated; W19.XXXA Unspecified fall, initial encounter
CPT/HCPCS: 12345; 73130; 99281; 99283

== ENCOUNTER 2020-04-16 03:23 | Emergency (ER) | payer MEDICAID, SELFPAY ==
[2020-04-16 03:27] VITALS: BP 135/87; PULSE 108; RESP 20; TEMP 36.7; O2SAT 100; BMI 32.5
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
[2020-04-16 03:37] LABS: Basophils # 0.1 10^3/uL (0.0-0.1); Basophils % 0.7 %; Eosinophils # 0.2 10^3/uL (0.0-0.8); Eosinophils % 2.5 %; Hematocrit 36.2 % (37.0-47.0); Hemoglobin 12.5 g/dL (11.5-15.3); Lymphocytes % 56.4 %; Mean Corpuscular HGB Conc 34.5 g/dL (30.0-36.0); Mean Corpuscular Hemoglobin 36.9 pg (28.0-34.0); Mean Corpuscular Volume 106.8 fL (81-99); Mean Platelet Volume 9.6 fL (7.4-10.4); Monocytes # 0.5 10^3/uL (0.2-0.9); Monocytes % 6.8 %; Neutrophils # 2.37 10^3/uL (1.8-7.7); Neutrophils % 33.5 %; Nucleated Red Blood Cells % 0 %; Platelet Count 290 10^3/cmm (130-400); Red Blood Count 3.39 10^6/uL (4.1-5.3); Red Cell Distribution Width 15.2 % (12.1-15.1); White Blood Count 7.1 10^3/uL (4.0-10.0)
[2020-04-16 03:42] VITALS: BP 135/87; PULSE 111; RESP 13; O2SAT 99
[2020-04-16] MEDS: LORazepam 2 mg/mL INJ 1 mL IVP (03:48)
[2020-04-16] MEDS: haloperidol inj 5 mg/mL INJ 1 mL IVP (03:48)
[2020-04-16 03:58] LABS: Acetaminophen < 5.0 ug/mL (10-30); Alanine Aminotransferase 12 U/L (0-33); Albumin Level 4.9 g/dL (3.5-5.2); Alkaline Phosphatase 104 IU/L (35-105); Anion Gap 18.8 (5-19); Aspartate Amino Transferase 22 U/L (0-32); Blood Urea Nitrogen 9 mg/dL (6-20); Calcium 9.5 mg/dL (8.5-10.5); Carbon Dioxide 23 mmol/L (22-29); Chloride 108 mmol/L (98-107); Glomerular Filtration Rate 88.2 mL/min (90-130); Glucose 98 mg/dL (65-115); Osmolality Calculated 301 mOsm/kg (285-295); Potassium 3.8 mmol/L (3.5-5.1); Salicylate < 0.3 mg/dL (3-10); Sodium 146 mmol/L (136-145); Total Bilirubin 0.2 mg/dL (0.15-1.2); Total Protein 7.9 g/dL (6.6-8.7)
[2020-04-16 03:59] LABS: Alcohol Level 458 mg/dL (0-10)
[2020-04-16 04:07] VITALS: BP 79/51; PULSE 76; RESP 15; O2SAT 100
[2020-04-16] MEDS: sodium chloride 0.9% 1,000 ML 999 ML IV (04:32)
[2020-04-16 05:15] VITALS: BP 72/45; PULSE 70; RESP 12; O2SAT 97
[2020-04-16 05:29] VITALS: BP 110/69; PULSE 88; RESP 18; O2SAT 99
[2020-04-16] MEDS: folic acid 1 MG, multivitamin inj 10 ML, thiamine 100 MG in sodium chloride 0.9% 1,000 ML 252.8 MG IV (08:18)
[2020-04-16 09:41] VITALS: BP 110/69; PULSE 66; RESP 14; O2SAT 100
== END 2020-04-16 11:08 | disposition home or self-care (01) ==
PROVIDERS: Emergency Medicine; Emergency Provider Family Medicine
DX: F10.229 Alcohol dependence with intoxication, unspecified (principal); Y90.8 Blood alcohol level of 240 mg/100 ml or more; F17.210 Nicotine dependence, cigarettes, uncomplicated
CPT/HCPCS: 80053; 80307; 85025; 96361; 96374; 96375; 99284; J1630; J2060; J3411; J3490; J7030

== ENCOUNTER 2020-06-14 10:43 | Emergency (ER) | payer MEDICAID, SELFPAY ==
[2020-06-14] VITALS (7 sets, daily range): BP systolic 98–119; BP diastolic 60–78; PULSE 71–123; RESP 18–24; TEMP 36.2–37.2; O2SAT 97–98; BMI 28.6
--- NOTE | 2020-06-14 12:23 | ECG_ITS ---
[facility] Test Date: 2020-06-14 Pat Name: Melissa Portillo Department: Room: Gender: Female Car Hop: : 1970 Requested By: Angus Mendez Order Number: [id number] MD: Jensen Kidd M.D. Measurements Intervals [place] Rate: 119 P: 67 MO: 156 QRS: 70 QRSD: 87 T: 64 QT: 307 QTc: 432 Interpretive Statements SINUS TACHYCARDIA WITH OCCASIONAL SUPRAVENTRICULAR PREMATURE COMPLEXES MODERATE ST DEPRESSION [0.05+ mV ST DEPRESSION] Compared to ECG 06/28/2019 22:31:58 ST (T wave) deviation now present Sinus rhythm no longer present Electronically Signed On 06-16-2020 7:59:47 CDT by Jensen Kidd M.D. [id number]
--- NOTE | 2020-06-14 13:12 | XRR_ITS ---
PROCEDURE INFORMATION: Exam: XR Complete Acute Abdomen Series Exam date and time: 06/14/2020 1:41 PM Age: 49 years old Clinical indication: Nausea and vomiting; Abdominal pain; Generalized; Prior surgery; Surgery type: Hyst; Additional info: Abd pain, n/v weeks TECHNIQUE: Imaging protocol: XR complete acute abdomen series, including 2 or more views of the abdomen and a single view chest. COMPARISON: CT abdomen pelvis w con* [id number] 06/08/2019 11:45 PM FINDINGS: Lungs: No pneumonia or pulmonary edema. Pleural spaces: No pleural effusion or pneumothorax. Heart/Mediastinum: The cardiac silhouette is not enlarged. The mediastinal contours are normal. Gastrointestinal tract: No dilated gas-filled loops of bowel. No suspicious air-fluid levels. Intraperitoneal space: No pneumoperitoneum. Organs: Prior cholecystectomy. Bones/joints: Old, healed right rib fractures. S-shaped curvature of the lumbar spine and lower thoracic spine. Soft tissues: No acute soft tissue abnormality. XR/XR acute abdomen series [id number] IMPRESSION: No acute abnormality.
--- NOTE | 2020-06-14 13:14 | ED_ITS ---
HPI - Nausea/Vomiting/Diarrhea General: Chief complaint: Nausea/Vomiting/Diarrhea Stated complaint: N/V Time Seen by Provider: 06/14/20 13:09 Source: patient and family Mode of arrival: ambulatory Limitations: no limitations History of Present Illness: HPI Narrative: This patient is a 49-year-old female who presents to the emergency department with nausea vomiting diarrhea has been pretty heavy for the past 3 days. Patient states she has had nausea vomiting intermittently for the past week and a half and diarrhea or loose stool for 2 weeks. Patient states she has a history of C. difficile from 4 to 5 years ago. Patient denies any other significant medical problems. Patient states she just cannot seem to keep anything down. Will do medical evaluation treat as needed MD elicited complaint: nausea, vomiting, diarrhea and abdominal pain Associated nausea: Yes Location of pain: Diffuse Associated symtoms: Reports nausea; Denies anxiety, change in vision, chest pain, dysuria, fatigue, headache(s) or palpitations Review of Systems General: Reports: 10 or more systems reviewed and unremarkable except in HPI and below Const: Denies: fever(s), chills, body aches or fatigue Eyes: Denies: change in vision or blurry vision ENMT: Denies: throat pain, hoarseness or mouth pain Card: Denies: chest pain, palpitations, irregular heart rhythm, edema, swelling of feet/ankles or lightheadedness Resp: Denies: dyspnea, productive cough, non-productive cough, wheezing or pain on inspiration GI: Reports: abdominal pain, nausea, vomiting, diarrhea and GI cramping : Denies: flank pain, difficulty voiding, dysuria, urinary frequency, urinary urgency or urinary hesitancy Musc: Denies: neck pain, back pain, extremity pain, extremity swelling, joint pain, joint swelling, joint redness, joint warmth or limited range of motion Skin/Breast: Denies: rash, pruritus, erythema or skin tenderness Neuro: Denies: headache(s), numbness in extremities or weakness in extremities Psych: Denies: anxiety or depression PFS ED PFSH: Medical History (Updated 06/14/20 @ 15:46 by Brigido Diamond MD) Alcoholism Anemia Carpal tunnel syndrome Chronic back pain Chronic pancreatitis Cirrhosis Enteritis GERD (gastroesophageal reflux disease) H. pylori infection Hepatitis A Sciatica Surgical History H/O rotator cuff surgery H/O: hysterectomy History of appendectomy History of cholecystectomy Family History Denies family history of Diabetes CAD (coronary artery disease) Dementia Social History Smoking and tobacco status: current every day smoker Alcohol intake: current Desire information about alcohol rehabilitation?: No Counseling given: Yes Last alcohol use date: 02/15/19 Physical Exam Const: COMMON NORMALS: no acute distress, average body habitus, patient oriented x3, no limitations, healthy appearing, alert and well nourished HENMT: COMMON NORMALS: normocephalic, atraumatic, hearing grossly normal bilaterally, external ears normal, EAC's normal, TM's normal bilaterally, Normal external nose present, Normal nasal mucous membranes and turbinates present, moist oral mucous membranes, oropharynx normal, dentition normal and gingiva normal HEAD & SCALP: normocephalic and atraumatic NOSE: Normal external nose present and Normal nasal mucous membranes and turbinates present EXTERNAL EAR: Yes external ears normal EXTERNAL AUDITORY CANAL: EAC's normal TYMPANIC MEMBRANE: TM's normal bilaterally Neck/C-Spine: COMMON NORMALS: full ROM, no lymphadenopathy, supple, no meningeal signs, no JVD, Thyroid normal and No carotid bruits THYROID: Thyroid normal Chest: COMMONS NORMALS: normal inspection of the chest, normal palpation of entire chest wall, normal inspection of the breasts and normal palpation of the breasts Breast/axilla inspection: Yes normal inspection of the breasts BREAST/AXILLA PALPATION: Yes normal palpation of the breasts Resp: COMMON NORMALS: normal respiratory effort, No retractions, No use of accessory muscles, clear to auscultation bilaterally and percussion normal AUSCULTATION: clear to auscultation bilaterally PERCUSSION: percussion normal Cardio: COMMON NORMALS: no JVD, regular rate, regular rhythm, S1 normal heart sound present, S2 normal heart sound present, No gallops present (Cardio), No clicks present (Cardio), No murmurs present (Cardio), No rub (Cardio) and Peripheral pulses 2+ throughout RATE: regular rate RHYTHM: regular rhythm HEART SOUNDS: S1 normal heart sound present and S2 normal heart sound present PERIPHERAL PULSES: Peripheral pulses 2+ throughout GI: COMMON NORMALS: Normal to inspection, nondistended, normoactive bowel sounds present, Soft to palpation, non-tender, No hepatosplenomegaly present, no masses and no bruits PALPATION: Yes Soft to palpation and Yes No hepatosplenomegaly present : COMMON NORMALS: Yes no CVA tenderness, Yes normal external appearance, Yes normal appearance of the vagina, Yes normal appearance of the cervix, Yes normal bimanual exam, Yes No adnexal tenderness and Yes no masses BLADDER/KIDNEY EXAM: Yes no CVA tenderness BIMANUAL EXAM - VAGINA & UTERUS: Yes normal bimanual exam Back/Pelvis: COMMON NORMALS: no CVA tenderness, thoracic and lumbar spine normal to inspection, no thoracic nor lumbar tenderness, thoraco-lumbar ROM normal and straight leg raise negative bilaterally Extremity: COMMON NORMALS: normal to inspection, full ROM, capillary refill normal, no joint enlargement, no clubbing, cyanosis or edema, no calf tenderness and no pedal edema Neuro: COMMON NORMALS: patient oriented x3 SENSORIUM/ORIENTATION: Yes alert MENINGEAL SIGNS: Yes no meningeal signs Course Reevaluation(s): Reevaluation #1: Discussed at length with [facility] the patient medications. [facility] have concerns about the patient doctor shopping and narcotic abuse. Patient has been reluctant to write her pain medication prescription even on her insurance and pays carrizales for those medicati ons. Patient has had numerous physicians around hydrocodone for her in the past. Concerning for possible drug abuse. Patient has not had any vomiting in the emergency department. We will continue to monitor the patient. Time: 14:52 Vital Signs: Vital signs: Vital Signs Temperature 97.1 F L 06/14/20 11:17 Pulse Rate 99 06/14/20 15:16 Respiratory Rate 24 H 06/14/20 15:16 Blood Pressure 115/78 06/14/20 15:16 Pulse Oximetry 98 06/14/20 15:16 MDM - Nausea/Vomiting/Diarrhea MDM Narrative: Medical decision making narrative: This patient presented to the emergency department complaint of nausea vomiting diarrhea however the patient has had no nausea vomiting diarrhea in the emergency department. Patient has been stable. Patient urine drug screen did show that she had marijuana in her system and does have a long history of alcoholism. Patient also concerned for possible narcotic abuse patient pharmacy states that she has had multiple prescriptions filled with multiple physician names. I did discuss options with patient advised the patient I would not be right prescribing any pain medicine day when she asked if I could. I advised the patient that I would provide Zofran for nausea vomiting she will need to follow-up with her primary care physician for any further pain medications. Patient be discharged home with family patient and family state understanding Differential Diagnosis: N/V/D differential diagnosis: Likely food poisoning, gastroenteritis and drug-induced nausea and vomiting Medical Records: Attestation: I reviewed the patient's medical records. Lab Data: Attestation: I reviewed the patient's lab results. Labs: Lab Results 06/14/20 06/14/20 06/14/20 Range/Units 13:26 13:26 13:26 WBC 4.6 (4.0-10.0) 10^3/ uL RBC 3.41 L (4.1-5.3) 10^6/u L Hgb 12.8 (11.5-15.3) g/dL Hct 35.8 L (37.0-47.0) % MCV 105.0 H (81-99) fL MCH 37.5 H (28.0-34.0) pg MCHC 35.8 (30.0-36.0) g/dL RDW 13.6 (12.1-15.1) % Plt Count 179 (130-400) 10^3/c mm MPV 10.4 (7.4-10.4) fL Neut % (Auto) 59.5 % Lymph % (Auto) 26.2 % [place] % (Auto) 13.4 % Eos % (Auto) 0.0 % Baso % (Auto) 0.7 % Neut # (Auto) 2.74 (1.8-7.7) 10^3/u L Lymph # (Auto) 1.2 (0.8-4.8) 10^3/u L [place] # (Auto) 0.6 (0.2-0.9) 10^3/u L Eos # (Auto) 0.0 (0.0-0.8) 10^3/u L Baso # (Auto) 0.0 (0.0-0.1) 10^3/u L Nucleated RBC % (a uto) 0 % Nucleated RBCs # 0.0 /100WBC Sodium 135 L (136-145) mmol/L Potassium 3.3 L (3.5-5.1) mmol/L Chloride 97 L (98-107) mmol/L Carbon Dioxide 21 L (22-29) mmol/L Anion Gap 20.3 H (5-19) BUN 6 (6-20) mg/dL Creatinine 0.7 (0.5-0.9) mg/dL GFR Calculation 88.2 L (90-130) mL/min Glucose 96 (65-115) mg/dL Calculated Osmolal ity 277 L (285-295) mOsm/k g Calcium 9.1 (8.5-10.5) mg/dL Total Bilirubin 0.6 (0.15-1.2) mg/dL AST 131 H (0-32) U/L ALT 94 H (0-33) U/L Alkaline Phosphata se 138 H (35-105) IU/L Troponin T Baselin e 13 H (0-10) ng/L Total Protein 7.2 (6.6-8.7) g/dL Albumin 4.7 (3.5-5.2) g/dL Globulin 2.5 (1.3-4.6) g/dL Lipase 70 H (13-60) U/L Urine Color (Yellow) Urine Appearance (CLEAR) Urine pH (5-7) Ur Specific Gravit y (1.005-1.030) Urine Protein (Negative) Urine Glucose (UA) (Normal) Urine Ketones (Negative) Urine Blood (Negative) Urine Nitrate (Negative) Urine Bilirubin (Negative) Urine Urobilinogen (Negative) mg/dL Ur Leukocyte Susan ase (Negative) Urine RBC (0-2) /hpf Urine WBC (0-5) /hpf Ur Squamous Epith Cells (0-5) /hpf Amorphous Sediment Urine Bacteria (NONE) /hpf Urine Opiates Scre en (Negative) ng/mL Ur Barbiturates Sc reen (Negative) ng/mL Ur Phencyclidine S crn (Negative) ng/mL Ur Amphetamines Sc reen (Negative) ng/mL U Benzodiazepines Scrn (Negative) ng/mL Urine Cocaine Scre en (Negative) ng/mL U Marijuana (THC) Screen (Negative) ng/mL 06/14/20 06/14/20 Range/Units 14:10 14:10 WBC (4.0-10.0) 10^3/ uL RBC (4.1-5.3) 10^6/u L Hgb (11.5-15.3) g/dL Hct (37.0-47.0) % MCV (81-99) fL MCH (28.0-34.0) pg MCHC (30.0-36.0) g/dL RDW (12.1-15.1) % Plt Count (130-400) 10^3/c mm MPV (7.4-10.4) fL Neut % (Auto) % Lymph % (Auto) % [place] % (Auto) % Eos % (Auto) % Baso % (Auto) % Neut # (Auto) (1.8-7.7) 10^3/u L Lymph # (Auto) (0.8-4.8) 10^3/u L [place] # (Auto) (0.2-0.9) 10^3/u L Eos # (Auto) (0.0-0.8) 10^3/u L Baso # (Auto) (0.0-0.1) 10^3/u L Nucleated RBC % (a uto) % Nucleated RBCs # /100WBC Sodium (136-145) mmol/L Potassium (3.5-5.1) mmol/L Chloride (98-107) mmol/L Carbon Dioxide (22-29) mmol/L Anion Gap (5-19) BUN (6-20) mg/dL Creatinine (0.5-0.9) mg/dL GFR Calculation (90-130) mL/min Glucose (65-115) mg/dL Calculated Osmolal ity (285-295) mOsm/k g Calcium (8.5-10.5) mg/dL Total Bilirubin (0.15-1.2) mg/dL AST (0-32) U/L ALT (0-33) U/L Alkaline Phosphata se (35-105) IU/L Troponin T Baselin e (0-10) ng/L Total Protein (6.6-8.7) g/dL Albumin (3.5-5.2) g/dL Globulin (1.3-4.6) g/dL Lipase (13-60) U/L Urine Color Yellow (Yellow) Urine Appearance Sl hazy (CLEAR) Urine pH 6 (5-7) Ur Specific Gravit y 1.010 (1.005-1.030) Urine Protein 1+ H (Negative) Urine Glucose (UA) Norm (Normal) Urine Ketones 1+ H (Negative) Urine Blood 2+ H (Negative) Urine Nitrate Negative (Negative) Urine Bilirubin 1+ H (Negative) Urine Urobilinogen 1 H (Negative) mg/dL Ur Leukocyte Susan ase Trace H (Negative) Urine RBC 0-4 H (0-2) /hpf Urine WBC 0-4 H (0-5) /hpf Ur Squamous Epith Cells 15-25 H (0-5) /hpf Amorphous Sediment Not Reportable Urine Bacteria 1+ H (NONE) /hpf Urine Opiates Scre en Negative (Negative) ng/mL Ur Barbiturates Sc reen Negative (Negative) ng/mL Ur Phencyclidine S crn Negative (Negative) ng/mL Ur Amphetamines Sc reen Negative (Negative) ng/mL U Benzodiazepines Scrn Negative (Negative) ng/mL Urine Cocaine Scre en Negative (Negative) ng/mL U Marijuana (THC) Screen Positive H (Negative) ng/mL EKG Data^: EKG 1: Attestation: I personally reviewed and interpreted this EKG as follows: EKG interpretation date: 06/14/20 EKG interpretation time: 14:11 Prior EKG tracings: not available for review Interpretation: Sinus tachycardia with occasional PVC nonspecific ST changes. Heart rate 119 Discharge Plan Discharge Patient Disposition: Home Clinical Impression: Nausea vomiting and diarrhea Condition: Stable Prescriptions: New ondansetron 4 mg tablet,disintegrating 4 mg PO DAILY PRN (Reason: nausea and vomiting) 4 Days Qty: 7 RF: 0 No Action hydrocodone-acetaminophen 5-325 mg tablet 1 tab PO Q6H PRN (Reason: pain) 7 Days Qty: 10 RF: 0 omeprazole 40 mg Capsule,Delayed Release(Dr/Ec) 40 mg PO DAILY RF: 0 Discharge Orders: Discharge ED (Routine); Ordered 06/14/20 Ordered By: Brigido Diamond Discharge Diet: Advance as tolerated Discharge Activity: Resume usual activity Patient Instructions: Opioid Safety Activity Restrictions/Additional Instructions: Encourage p.o. fluids. 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
[2020-06-14 13:40] LABS: Basophils % 0.7 %; Hematocrit 35.8 % (37.0-47.0); Hemoglobin 12.8 g/dL (11.5-15.3); Lymphocytes # 1.2 10^3/uL (0.8-4.8); Lymphocytes % 26.2 %; Mean Corpuscular HGB Conc 35.8 g/dL (30.0-36.0); Mean Corpuscular Hemoglobin 37.5 pg (28.0-34.0); Mean Platelet Volume 10.4 fL (7.4-10.4); Monocytes # 0.6 10^3/uL (0.2-0.9); Monocytes % 13.4 %; Neutrophils # 2.74 10^3/uL (1.8-7.7); Neutrophils % 59.5 %; Nucleated Red Blood Cells % 0 %; Platelet Count 179 10^3/cmm (130-400); Red Blood Count 3.41 10^6/uL (4.1-5.3); Red Cell Distribution Width 13.6 % (12.1-15.1); White Blood Count 4.6 10^3/uL (4.0-10.0)
[2020-06-14] MEDS: acetaminophen 325 mg Tablet 650 MG PO (14:20)
[2020-06-14] MEDS: ondansetron 2 mg/ML SDV 2 mL 4 MG IVP (14:22)
[2020-06-14 14:23] LABS: Troponin(5th) Baseline 13 ng/L (0-10)
[2020-06-14] MEDS: sodium chloride 0.9% 1,000 ML 999 ML IV (14:23)
[2020-06-14 14:24] LABS: Alanine Aminotransferase 94 U/L (0-33); Albumin Level 4.7 g/dL (3.5-5.2); Alkaline Phosphatase 138 IU/L (35-105); Anion Gap 20.3 (5-19); Aspartate Amino Transferase 131 U/L (0-32); Blood Urea Nitrogen 6 mg/dL (6-20); Calcium 9.1 mg/dL (8.5-10.5); Carbon Dioxide 21 mmol/L (22-29); Chloride 97 mmol/L (98-107); Globulin 2.5 g/dL (1.3-4.6); Glomerular Filtration Rate 88.2 mL/min (90-130); Glucose 96 mg/dL (65-115); Lipase 70 U/L (13-60); Osmolality Calculated 277 mOsm/kg (285-295); Potassium 3.3 mmol/L (3.5-5.1); Sodium 135 mmol/L (136-145); Total Bilirubin 0.6 mg/dL (0.15-1.2); Total Protein 7.2 g/dL (6.6-8.7)
[2020-06-14 14:46] LABS: Add Urine Microscopic? YES; Bilirubin Urine 1+ (Negative); Blood Urine 2+ (Negative); Glucose Urine UA Norm (Normal); Ketones Urine 1+ (Negative); Leukocyte Esterase Urine Trace (Negative); Nitrate Urine Negative (Negative); Protein Urine 1+ (Negative); Urine Appearance SL Hazy (CLEAR); Urine Color Yellow (Yellow); Urobilinogen Urine 1 mg/dL (Negative); pH Urine 6 (5-7)
[2020-06-14 14:52] LABS: Amphetamines Screen Urine Negative (Negative); Barbiturates Screen Urine Negative (Negative); Benzodiazepines Screen Urine Negative (Negative); Cocaine Screen Urine Negative (Negative); Opiate Screen Urine Negative (Negative); PCP Screen Urine Negative (Negative); THC Screen Urine Positive (Negative)
[2020-06-14 15:19] LABS: Add Urine Culture? No; Bacteria Urine 1+ /hpf; RBC Urine 0-4 /hpf (0-2); Squamous Epithelial Cell Urine 15-25 /hpf (0-5); WBC Urine 0-4 /hpf (0-5)
[2020-06-14 16:20] LABS: Troponin 5 2HR 18.16 ng/L (0-10); Troponin 5 2HR Delta 5.16 ABS# (0-10)
[2020-06-14 16:23] LABS: Alcohol Level < 10 mg/dL (0-10)
== END 2020-06-14 16:04 | disposition home or self-care (01) ==
PROVIDERS: Nurse Practitioner Family; Emergency Provider Emergency Medicine
DX: R11.2 Nausea with vomiting, unspecified (principal); R19.7 Diarrhea, unspecified; F17.210 Nicotine dependence, cigarettes, uncomplicated
CPT/HCPCS: 74022; 80053; 80306; 80307; 81001; 83690; 84484; 85025; 87493; 93005; 96361; 96374; 99284; J2405; J7030

== ENCOUNTER 2020-06-25 23:32 | Inpatient (IN) | payer MEDICAID, SELFPAY ==
[2020-06-25 23:49] VITALS: BP 112/72; PULSE 92; RESP 16; O2SAT 95; BMI 28.6
[2020-06-25] MEDS: LORazepam 2 mg/mL INJ 1 mL IM (23:59)
[2020-06-26] VITALS (17 sets, daily range): BP systolic 100–164; BP diastolic 58–111; PULSE 65–139; RESP 14–22; TEMP 36.5–37.2; O2SAT 91–99; BMI 28.6
[2020-06-26] MEDS: ziprasidone hcl 20 mg Capsule PO
--- NOTE | 2020-06-26 00:09 | W.ED.PSYCH ---
HPI - Psych General: Chief Complaint: Psychiatric Symptoms Stated Complaint: SI Time Seen by Provider: 06/25/20 23:35 Source: patient and EMS Mode of arrival: EMS Limitations: no limitations History of Present Illness: HPI Narrative: 49-year-old female who has a history of alcoholism dates today is her father's birthday and he is years ago. Patient here is belligerent and screaming and yelling that she just wants to . Been trying to calm her down but she keeps screaming and is not able to verbally decide de-escalate. She is intoxicated so full history is difficult. EMS was called out for suicide attempt she is try to cut her wrist with a file Associated symptoms: Reports homicidal ideation and suicidal ideation Review of Systems Const: Denies: fever(s), chills, body aches or change in appetite Eyes: Denies: blurry vision or eye discomfort ENMT: Denies: throat pain or dental pain Card: Denies: chest pain Resp: Denies: dyspnea GI: Denies: abdominal pain, nausea, vomiting or diarrhea : Denies: dysuria Musc: Denies: neck pain or back pain Skin/Breast: Denies: rash Neuro: Denies: headache(s) Psych: Reports: anxiety, suicidal ideation and homicidal ideation Eric/Lymph: Denies: easy bruising All/Imm: Denies: urticaria PFSH ED PFSH: Medical History (Updated 06/26/20 @ 01:35 by Bruce Valdes MD) Alcoholism Anemia Carpal tunnel syndrome Chronic back pain Chronic pancreatitis Cirrhosis Enteritis GERD (gastroesophageal reflux disease) H. pylori infection Hepatitis A Sciatica Surgical History H/O rotator cuff surgery H/O: hysterectomy History of appendectomy History of cholecystectomy Family History Denies family history of Diabetes CAD (coronary artery disease) Dementia Social History Smoking and tobacco status: current every day smoker Alcohol intake: current Desire information about alcohol rehabilitation?: No Counseling given: Yes Last alcohol use date: 02/15/19 Physical Exam Const: COMMON NORMALS: healthy appearing GENERAL APPEARANCE: anxious, combative and disheveled HENMT: COMMON NORMALS: normocephalic and atraumatic HEAD & SCALP: normocephalic and atraumatic Eye: COMMON NORMALS: Equal, round and reactive pupils present and EOMs intact bilaterally PUPIL: Yes Equal, round and reactive pupils present Neck/C-Spine: COMMON NORMALS: full ROM and supple Chest: COMMONS NORMALS: normal inspection of the chest and normal palpation of entire chest wall Resp: COMMON NORMALS: normal respiratory effort, No retractions, No use of accessory muscles and clear to auscultation bilaterally AUSCULTATION: clear to auscultation bilaterally Cardio: COMMON NORMALS: regular rate, regular rhythm and No murmurs present (Cardio) RATE: regular rate RHYTHM: regular rhythm GI: COMMON NORMALS: Normal to inspection, nondistended, normoactive bowel sounds present, Soft to palpation, non-tender and no masses PALPATION: Yes Soft to palpation Extremity: COMMON NORMALS: normal to inspection and full ROM Neuro: COMMON NORMALS: moves all extremities and no focal motor deficits Psych: APPEARANCE: Yes disheveled ATTITUDE: Yes uncooperative, Yes Belligerent attititude/behavior present and Yes agitated THOUGHT CONTENT: Yes Suicidality present and Yes Homicidality present Skin: COMMON NORMALS: no rashes or lesions noted and no wounds GENERAL SKIN EXAM: no rashes or lesions noted Face to Face: Restrn/Seclusion Events leading up to initiation: Demonstrating self-destructive behavior (cutting, hitting barreto etc.) and Combative/Striking out at staff or others Evaluation of patient's immediate situation: Signs of psychological distress Patient reaction since intervention applied: De-escalation/no displays of violent/destructive behavior Recent labs reviewed: Yes Review of medications: Yes Patient's current medical/behavioral condition: No new concerns since last ROS Course Reevaluation(s): Reevaluation #1: Patient has been screaming and yelling and kicking and violent toward staff herself. I tried speaking to her multiple times and de-escalate with minimal improvement. I did give patient Ativan and ketamine to chemically restrain her as she was a threat to herself and others. Time: 00:00 Vital Signs: Vital signs: Vital Signs Pulse Rate 131 H 06/26/20 01:00 Respiratory Rate 20 H 06/26/20 01:00 Blood Pressure 135/95 06/26/20 01:00 Pulse Oximetry 91 06/26/20 01:00 MDM - Psych MDM Narrative: Medical decision making narrative: Patient presents here with suicidal ideation along with alcohol intoxication. Patient was quite agitated here and had to be chemically sedated to protect herself along with others. Patient is been stable while in the ER. I spoke to psychiatrist and will admit. We will start her on CIWA protocol. Lab Data: Labs: Lab Results 06/26/20 06/26/20 Range/Units 00:51 00:51 WBC 4.5 (4.0-10.0) 10^3/ uL RBC 3.25 L (4.1-5.3) 10^6/u L Hgb 12.0 (11.5-15.3) g/dL Hct 36.4 L (37.0-47.0) % MCV 112.0 H (81-99) fL MCH 36.9 H (28.0-34.0) pg MCHC 33.0 (30.0-36.0) g/dL RDW 13.8 (12.1-15.1) % Plt Count 212 (130-400) 10^3/c mm MPV 9.4 (7.4-10.4) fL Neut % (Auto) 43.3 % Lymph % (Auto) 43.0 % [place] % (Auto) 10.6 % Eos % (Auto) 1.8 % Baso % (Auto) 1.1 % Neut # (Auto) 1.96 (1.8-7.7) 10^3/u L Lymph # (Auto) 2.0 (0.8-4.8) 10^3/u L [place] # (Auto) 0.5 (0.2-0.9) 10^3/u L Eos # (Auto) 0.1 (0.0-0.8) 10^3/u L Baso # (Auto) 0.1 (0.0-0.1) 10^3/u L Nucleated RBC % (a uto) 0 % Nucleated RBCs # 0.0 /100WBC Sodium 148 H (136-145) mmol/L Potassium 3.9 (3.5-5.1) mmol/L Chloride 109 H (98-107) mmol/L Carbon Dioxide 23 (22-29) mmol/L Anion Gap 19.9 H (5-19) BUN 8 (6-20) mg/dL Creatinine 0.8 (0.5-0.9) mg/dL GFR Calculation 75.6 L (90-130) mL/min Glucose 92 (65-115) mg/dL Calculated Osmolal ity 304 H (285-295) mOsm/k g Calcium 8.7 (8.5-10.5) mg/dL Total Bilirubin 0.5 (0.15-1.2) mg/dL AST 290 H (0-32) U/L ALT 114 H (0-33) U/L Alkaline Phosphata se 259 H (35-105) IU/L Total Protein 6.9 (6.6-8.7) g/dL Albumin 4.2 (3.5-5.2) g/dL Globulin 2.7 (1.3-4.6) g/dL Salicylates < 0.3 L (3-10) mg/dL Acetaminophen < 5.0 L (10-30) ug/mL Ethyl Alcohol 292 H (0-10) mg/dL Discharge Plan Discharge Patient Disposition: Admitted As Inpatient Admit Provider: Liliana Rosario Clinical Impression: Suicidal ideation, Alcoholism Condition: Stable Coding Level of Care Code 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
--- NOTE | 2020-06-26 00:30 | PC.NURSE ---
Pt banging her hand onto stretcher's side rail, rail pads placed
[2020-06-26 00:55] LABS: Basophils # 0.1 10^3/uL (0.0-0.1); Basophils % 1.1 %; Eosinophils # 0.1 10^3/uL (0.0-0.8); Eosinophils % 1.8 %; Hematocrit 36.4 % (37.0-47.0); Mean Corpuscular Hemoglobin 36.9 pg (28.0-34.0); Mean Platelet Volume 9.4 fL (7.4-10.4); Monocytes # 0.5 10^3/uL (0.2-0.9); Monocytes % 10.6 %; Neutrophils # 1.96 10^3/uL (1.8-7.7); Neutrophils % 43.3 %; Nucleated Red Blood Cells % 0 %; Platelet Count 212 10^3/cmm (130-400); Red Blood Count 3.25 10^6/uL (4.1-5.3); Red Cell Distribution Width 13.8 % (12.1-15.1); White Blood Count 4.5 10^3/uL (4.0-10.0)
[2020-06-26 01:15] LABS: Alanine Aminotransferase 114 U/L (0-33); Albumin Level 4.2 g/dL (3.5-5.2); Alcohol Level 292 mg/dL (0-10); Alkaline Phosphatase 259 IU/L (35-105); Anion Gap 19.9 (5-19); Aspartate Amino Transferase 290 U/L (0-32); Blood Urea Nitrogen 8 mg/dL (6-20); Calcium 8.7 mg/dL (8.5-10.5); Carbon Dioxide 23 mmol/L (22-29); Chloride 109 mmol/L (98-107); Globulin 2.7 g/dL (1.3-4.6); Glomerular Filtration Rate 75.6 mL/min (90-130); Glucose 92 mg/dL (65-115); Osmolality Calculated 304 mOsm/kg (285-295); Potassium 3.9 mmol/L (3.5-5.1); Sodium 148 mmol/L (136-145); Total Bilirubin 0.5 mg/dL (0.15-1.2); Total Protein 6.9 g/dL (6.6-8.7)
[2020-06-26 01:17] LABS: Salicylate < 0.3 mg/dL (3-10)
[2020-06-26 01:18] LABS: Acetaminophen < 5.0 ug/mL (10-30)
--- NOTE | 2020-06-26 03:00 | PC.NURSE ---
Pt asleep at this time,
[2020-06-26 04:34] LABS: Alcohol Level 197 mg/dL (0-10)
--- NOTE | 2020-06-26 05:00 | PC.NURSE ---
Pt has been regularly rounded on in ED, pt dressed in paper scrubs, and belongings bagged. Pt has been unable to provide UA during stay in ED and has refused in and out cath.
--- NOTE | 2020-06-26 10:29 | PC.NURSE ---
Addendum entered by Maria Isabel Falk LPN 06/26/20 11:16: reassesses CIWA, score now at a 5. Original Note: CIWA SCORE 10--ATIVAN 2 MG GIVEN PO PER PROTOCOL. WILL CONT TO MONITOR.
[2020-06-26] MEDS: LORazepam 2 mg Tablet PO ×2 (10:30→20:19)
--- NOTE | 2020-06-26 14:47 | P.HP_ITS ---
Providers/Chief Complaint Admitting Physician: Liliana Rosario DO Chief Complaint: SI HPI NPU History of Present Illness Melissa Portillo is a 49 year old female with longstanding history of alcohol dependence presenting to the hospital on multiple occasions with elevated blood alcohol sometimes up into the 400s currently presenting to the hospital physically and verbally agitated in the context of alcohol intoxication. Patient was placed on 96-hour hold secondary to concerns about harm to self or others as well as concerns about self-care given ongoing alcohol use. Currently denying any mood symptoms, denies any suicidal ideation Denies any psychotic symptoms. Reports having a poor appetite, poor sleep. Has some difficulty and some delay with regards to answering questions and is a fair historian stating that she drinks typically a couple of mixed drinks of vodka and Mountain Dew daily and that her longest period of sobriety was 6 months approximately 3 years ago. She reports that both her sister and father both passed from alcohol related complications. She currently denies any alcohol withdrawal symptoms, denying any stomach cramping, denies any nausea but does report poor appetite. Psychiatric review of systems is otherwise negative. States that she lives with her fianc? and that she supports herself on disability. Review of Systems General: Reports: 10 or more systems reviewed and unremarkable except in HPI and below Meds NPU Home Medications Medication Instructions Recorded Confirmed Last Taken Type omeprazole 10 mg PO DAILY 06/14/20 06/26/20 06/13/20 History bupropion HCl 100 mg PO BID 06/26/20 06/26/20 Unknown History ipratropium-albuterol [Combivent 1 puff INHALATION QID PRN 06/26/20 06/26/20 Unknown History Respimat] Allergies Allergy/AdvReac Type Severity Reaction Status Date / Time codeine Allergy ALGY-Hives Verified 06/14/20 11:28 ketorolac [From Toradol] Allergy ALGY-Rash Verified 06/14/20 11:28 naproxen [From Naprosyn] Allergy ADR-Vomitin Verified 06/14/20 11:28 g prochlorperazine Allergy ALGY-Swell Verified 06/14/20 11:28 [From Compazine] Lip/Tongue/Throat PFSH NPU PFSH: Medical History (Updated 06/26/20 @ 14:54 by Liliana Rosario DO) Alcoholism Anemia Carpal tunnel syndrome Chronic back pain Chronic pancreatitis Cirrhosis Enteritis GERD (gastroesophageal reflux disease) H. pylori infection Hepatitis A Sciatica Surgical History H/O rotator cuff surgery H/O: hysterectomy History of appendectomy History of cholecystectomy Family History Denies family history of Diabetes CAD (coronary artery disease) Dementia Social History Smoking and tobacco status: current every day smoker Alcohol intake: current Desire information about alcohol rehabilitation?: No Counseling given: Yes Last alcohol use date: 02/15/19 Other Psychiatric History: Other Psychiatric History: States that she had seen a psychiatrist in the past who had diagnosed her as bipolar disorder although was in the context of daily heavy alcohol use Reports past psychiatric hospitalization but does not recall when, last recorded psychiatric hospitalization here was approximately a year ago Denies any history of suicide attempts or self-harm behavior although prior documentation reports patient frequently makes suicidal gestures while intoxicated Mental Status Exam MSE Comments: Disheveled, unkempt, tired appearing, appears older than stated age, fair eye contact Psychomotor activity is somewhat decreased, no agitation Speech is low volume, somewhat slow, fair articulation, not pressured I feel fine, incongruent affect, constricted, not labile Alert, oriented to person, place, time, somewhat to situation Memory and concentration are fair at best per interview Intellectual functioning appears to be average based on vocabulary, interview Thought process, some delays, linear, no flight of ideas, no looseness of associations Thought content, no delusions, no hallucinations, no suicidal or homicidal ideation Insight and judgment appear to be fair at best based on patient's lack of concern or understanding of her condition, sequela of her long-term alcohol use to include episodes of suicidal gestures and being combative towards others attempting to provide care to her Vitals/I&O/Wt Last Vital Signs Temp 97.7 F 06/26/20 14:00 Pulse 95 06/26/20 14:00 Resp 16 06/26/20 14:00 BP 164/97 06/26/20 14:00 Pulse Ox 98 06/26/20 14:00 Weight last 48 hrs Weight 75.75 kg Weight 75.75 kg Data NPU : 06/26/20 00:51 06/26/20 00:51 A&P Assessment and plan (1) Suicidal ideation: Status: Acute (2) Alcohol dependence with withdrawal: Status: Acute Additional A&P Information Patient presenting to the hospital with reported suicidal ideation in the context of alcohol intoxication with longstanding alcohol use disorder, severe with unclear past psychiatric history. Significant concerns for self-care secondary to ongoing alcohol use despite multiple medical issues as a result of her alcohol use. INVOLUNTARY ADMIT to inpatient psychiatry START CIWA START naltrexone 50 mg daily Encourage patient to dissipate in unit activities to include group sessions, unit milieu Coordinate with neonatal social worker for post discharge substance counseling/treatment Involuntary Hold Information 96 Hour Hold: 96 Hour Involuntary Admission: Yes 96 Hour Hold Ending Date: 07/01/20 96 Hour Hold Ending Time: 00:18 Attestations NPU Medical Necessity Statement*: Psychiatric hospitalization indicated for medically managed withdrawal, coordination for safe discharge Anticipate hospital stay to exceed 2 midnights Time Spent in Patient Care: Greater than 35 minutes (>than 50% of time spent in counselling and/or direct pt care on unit) . Coding Level of Care Code Acute E Learning Manager for Shila Mcallister Diagnoses Suicidal ideation R45.851 Alcohol dependence with withdrawal F10.239
[2020-06-26] MEDS: thiamine 100 mg Tablet PO (15:19)
[2020-06-26] MEDS: naltrexone hcl 50 mg Tablet PO (15:19)
[2020-06-26] MEDS: multivitamin therapeutic Tablet 1 TAB PO (15:19)
--- NOTE | 2020-06-26 21:26 | PC.NURSE ---
Pt scored 10 on CIWA scale, 2mg of ativan given per order. Will continue to monitor.
[2020-06-27 00:17] VITALS: PULSE 91; RESP 16; O2SAT 96
[2020-06-27 06:00] VITALS: BP 120/79; PULSE 79; RESP 17; TEMP 36.7; O2SAT 96
[2020-06-27] MEDS: acetaminophen 325 mg Tablet 650 MG PO ×3 (06:17→20:01)
[2020-06-27] MEDS: thiamine 100 mg Tablet PO (07:54)
[2020-06-27] MEDS: multivitamin therapeutic Tablet 1 TAB PO (07:54)
[2020-06-27] MEDS: pantoprazole DR 40 mg Tablet PO (07:54)
[2020-06-27] MEDS: naltrexone hcl 50 mg Tablet PO (07:54)
[2020-06-27] MEDS: folic acid 1 mg Tablet PO (07:54)
--- NOTE | 2020-06-27 12:39 | PM.NPN ---
Subjective NPU Subjective: Interval history: Denies any interval suicidal ideation or mood symptoms Denies any interval withdrawal symptoms Continues to report poor appetite, states that her stomach is upset Reports being compliant with medication, denies any medication side effects Mental Status Exam MSE Comments: Appropriately groomed and dressed wearing hospital scrubs, appears older than stated age, polite, interactive, good eye contact Psychomotor activity is somewhat decreased, no agitation Speech is normal volume, normal rate, fair articulation, not pressured I feel fine, incongruent affect, constricted, not labile Alert, oriented to person, place, time, somewhat to situation Memory and concentration are fair at best per interview Thought process, linear, no flight of ideas, no looseness of associations Thought content, no delusions, no hallucinations, no suicidal or homicidal ideation Insight and judgment appear to be fair Vitals/I&O/Wt Last Vital Signs Temp 98.0 F 06/27/20 06:00 Pulse 79 06/27/20 06:00 Resp 17 06/27/20 06:00 BP 120/79 06/27/20 06:00 Pulse Ox 96 06/27/20 06:00 Weight last 48 hrs Weight 75.75 kg Weight 75.75 kg Weight 75.75 kg Data NPU : 06/26/20 00:51 06/26/20 00:51 A&P Assessment and plan (1) Suicidal ideation: Status: Acute (2) Alcohol dependence with withdrawal: Status: Acute Qualifiers: Complication of substance-induced condition: uncomplicated Qualified Code(s): F10.230 - Alcohol dependence with withdrawal, uncomplicated Additional A&P Information Reports improving withdrawal symptoms CONTINUE [facility] protocol Involuntary Hold Information 96 Hour Hold: 96 Hour Involuntary Admission: Yes 96 Hour Hold Ending Date: 07/01/20 96 Hour Hold Ending Time: 00:18 Attestations NPU Medical Necessity Statement*: Continues to require psychiatric hospitalization for medically managed withdrawal, coordination for safe discharge Coding Level of Care Code Acute Em Physician for [facility] Diagnoses Suicidal ideation R45.851 Alcohol dependence with withdrawal F10.230 Complication of substance-induced condition: uncomplicated
[2020-06-27] MEDS: hyDROXYzine 25 mg Capsule 50 MG PO (13:16)
--- NOTE | 2020-06-27 13:17 | PC.NURSE ---
Addendum entered by Maria Isabel Falk LPN 06/27/20 16:06: prn med somewhat effective, pt able to visit down in the day room with boyfriend during visiting hours, no outward s/s of anxiety noted Original Note: PRN VISTARIL 50 MG GIVEN PO PER PT C/O STATED ANXIETY. PT SOMEWHAT TEARFUL, NO OTHER OUTWARD S/S OF ANXIETY NOTED. WILL CONT TO MONITOR.
[2020-06-27 13:19] VITALS: BP 141/100; PULSE 87; RESP 16; TEMP 36.2; O2SAT 98
[2020-06-27 19:44] VITALS: BP 133/102; PULSE 108; RESP 15; TEMP 37.3; O2SAT 96
[2020-06-27] MEDS: trazodone 50 mg Tablet PO (20:02)
[2020-06-28] MEDS: ondansetron 4 MG Tablet PO ×2 (05:06→16:44)
--- NOTE | 2020-06-28 05:22 | PC.NURSE ---
pt given zofran 4mg po for complaint of heartburn making her nauseated.
[2020-06-28 05:47] VITALS: BP 152/101; PULSE 105; RESP 18; TEMP 37.1; O2SAT 96
[2020-06-28] MEDS: multivitamin therapeutic Tablet 1 TAB PO (08:56)
[2020-06-28] MEDS: thiamine 100 mg Tablet PO (08:56)
[2020-06-28] MEDS: naltrexone hcl 50 mg Tablet PO (08:56)
[2020-06-28] MEDS: pantoprazole DR 40 mg Tablet PO (08:56)
[2020-06-28] MEDS: folic acid 1 mg Tablet PO (08:57)
[2020-06-28] MEDS: acetaminophen 325 mg Tablet 650 MG PO ×3 (09:01→22:02)
[2020-06-28] MEDS: capsaicin 0.025% cream 60 gm 1 APPLIC TOPICAL (10:52)
[2020-06-28 10:55] VITALS: PULSE 101; RESP 16; O2SAT 96
--- NOTE | 2020-06-28 11:23 | PC.RESP ---
Smoking Cessation information sent to patient.
--- NOTE | 2020-06-28 12:10 | PM.NPN ---
Subjective NPU Subjective: Interval history: Denies any interval withdrawal symptoms although continues to have poor appetite, stomach upset Denies any interval mood symptoms, denies any depressive symptoms Denies any suicidal ideation Mental Status Exam MSE Comments: Sitting in the day room, calm, cooperative, interactive, appropriately groomed and dressed wearing hospital scrubs, good eye contact Psychomotor activity is somewhat decreased, no agitation Speech is normal volume, normal rate, fair articulation, not pressured I feel okay, constricted, not labile Alert, oriented to person, place, time, somewhat to situation Memory and concentration appear to be intact per interview Thought process, linear, no flight of ideas, no looseness of associations Thought content, no delusions, no hallucinations, no suicidal or homicidal ideation Insight and judgment appear to be fair Vitals/I&O/Wt Last Vital Signs Temp 98.7 F 06/28/20 05:47 Pulse 101 H 06/28/20 10:55 Resp 16 06/28/20 10:55 BP 152/101 06/28/20 05:47 Pulse Ox 96 06/28/20 10:55 Weight last 48 hrs Weight 75.75 kg Data NPU : 06/26/20 00:51 06/26/20 00:51 A&P Assessment and plan (1) Suicidal ideation: Status: Acute (2) Alcohol dependence with withdrawal: Status: Acute Qualifiers: Complication of substance-induced condition: uncomplicated Qualified Code(s): F10.230 - Alcohol dependence with withdrawal, uncomplicated Additional A&P Information Improving, denies any interval mood symptoms CONTINUE current medication, continue to monitor Continue coordination with social services coordinator for post discharge substance counseling/treatment Involuntary Hold Information 96 Hour Hold: 96 Hour Involuntary Admission: Yes 96 Hour Hold Ending Date: 07/01/20 96 Hour Hold Ending Time: 00:18 Attestations NPU Medical Necessity Statement*: Continues to require psychiatric hospitalization for stabilization, coordination for safe discharge Coding Level of Care Code Acute Tearoom Host/Hostess for margaret Mcallister Diagnoses Suicidal ideation R45.851 Alcohol dependence with withdrawal F10.230 Complication of substance-induced condition: uncomplicated
[2020-06-28 14:00] VITALS: BP 109/73; PULSE 80; RESP 17; TEMP 36.9; O2SAT 97
[2020-06-28 20:03] VITALS: BP 104/70; PULSE 86; RESP 15; TEMP 37; O2SAT 96
[2020-06-28] MEDS: trazodone 50 mg Tablet PO (20:04)
--- NOTE | 2020-06-28 20:12 | PC.NURSE ---
pt came to desk requesting sleep aide. trazodone 50mg po given.
[2020-06-29 06:00] VITALS: BP 121/74; PULSE 85; RESP 15; TEMP 36.5; O2SAT 97
[2020-06-29] MEDS: pantoprazole DR 40 mg Tablet PO (08:34)
[2020-06-29] MEDS: multivitamin therapeutic Tablet 1 TAB PO (08:34)
[2020-06-29] MEDS: folic acid 1 mg Tablet PO (08:34)
[2020-06-29] MEDS: naltrexone hcl 50 mg Tablet PO (08:35)
[2020-06-29] MEDS: thiamine 100 mg Tablet PO (08:35)
--- NOTE | 2020-06-29 09:21 | P.DS_ITS ---
Diagnoses at Discharge Discharge Diagnosis (1) Suicidal ideation: Status: Acute (2) Alcohol dependence with withdrawal: Status: Acute Qualifiers: Complication of substance-induced condition: uncomplicated Qualified Code(s): F10.230 - Alcohol dependence with withdrawal, uncomplicated Reason for Visit Reason for Visit: SI Hospital Course Hospital Course 49 year old female with longstanding history of alcohol dependence presenting to the hospital on multiple occasions with elevated blood alcohol sometimes up into the 400s currently presenting to the hospital physically and verbally agitated in the context of alcohol intoxication. Patient was placed on 96-hour hold secondary to concerns about harm to self or others as well as concerns about self-care given ongoing alcohol use. Patient continued to have some alcohol withdrawal symptoms at the time of admission was started on a CIWA protocol. Patient denied any depressive symptoms and was denying any suicidal ideation at the time of initial evaluation and denied any suicidal ideation throughout her hospital stay. Patient participated in unit milieu with no reports of any behavioral disturbances. Patient also reported having problems with cravings for alcohol and was started on naltrexone 50 mg daily which she tolerated well with no reports of any medication side effects. Patient was denying any alcohol withdrawal symptoms and was denying any psychiatric symptoms at the time of discharge and did not appear to pose an imminent threat of harm to self or others. Low to moderate risk of harm to self given no current suicidal ideation and no report of any psychiatric symptoms although patient's risk may be elevated if she continues to use alcohol as a means of maladaptive coping in the context of ongoing life stress leading to unexpected, impulsive behavior. Risk mitigation included psychiatric hospitalization for observation of any suicidal ideation or behaviors, medically managed withdrawal with CIWA protocol, recommendation to ab stain from the use of alcohol or any substances and the need for compliance with her medication and medication management follow-up. Patient was able to communicate her understanding of the need to abstain from the use of alcohol or any substances as well as the need for compliance with her medication, medication management and substance counseling/treatment follow-up in order to further mitigate her risk of harm to self and others. Involuntary Hold Information 96 Hour Hold: 96 Hour Involuntary Admission: Yes 96 Hour Hold Ending Date: 07/01/20 96 Hour Hold Ending Time: 00:18 Mental Status Exam MSE Comments: Appropriately groomed and dressed wearing hospital scrubs, calm, cooperative, interactive, good eye contact Psychomotor activity is neither increased nor decreased, no agitation Speech is normal volume, normal rate, fair articulation, not pressured I feel pretty good, full range of affect, not labile Alert, oriented to person, place, time, situation Memory and concentration appear to be intact per interview Thought process, linear, no flight of ideas, no looseness of associations Thought content, no delusions, no hallucinations, no suicidal or homicidal ideation Insight and judgment appear to be fair Discharge Data Data Completed and Pending: Pending at discharge Category Date Time Status Drug Screen, Urin [facility] 06/25/20 23:34 Uncollected Vitals: Last Vital Signs Temp 97.7 F 06/29/20 06:00 Pulse 85 06/29/20 06:00 Resp 15 06/29/20 06:00 BP 121/74 06/29/20 06:00 Pulse Ox 97 06/29/20 06:00 Discharge Plan Discharge Patient Disposition: Home Condition: Stable Prescriptions: New thiamine mononitrate (vit B1) [Vitamin B-1 (mononitrate)] 100 mg Tablet 100 mg PO DAILY Qty: 30 RF: 0 naltrexone 50 mg Tablet 50 mg PO DAILY Qty: 30 RF: 0 multivitamin with folic acid [Thera] 400 mcg Tablet 1 tab PO DAILY Qty: 30 RF: 0 Continued Combivent Respimat 20-100 mcg/actuation mist 1 puff INHALATION QID PRN (Reason: Bronchospasm) RF: 0 omeprazole 40 mg Capsule,Delayed Release(Dr/Ec) 10 mg PO DAILY RF: 0 Discontinued bupropion HCl 100 mg tablet 100 mg PO BID RF: 0 Discharge Orders: Discharge Order (Routine); Ordered 06/29/20 Ordered By: Liliana Rosario Referrals: [facility] [place] [facility] [Outside] [facility] [Outside] Discharge Diet: Regular Discharge Activity: Resume usual activity Patient Instructions: Opioid Safety Discharge Attestations NPU Time Spent in Discharge Care*: greater than 30 min Status at Discharge: Cognitive status at discharge: cognitively intact , Behavioral status at discharge: cooperative , Functional status at discharge: independent ambulation Overall status at discharge: patient is back to baseline Coding Level of Care Code Acute Chg FW DC note Diagnoses Suicidal ideation R45.851 Alcohol dependence with withdrawal F10.230 Complication of substance-induced condition: uncomplicated
[2020-06-29 09:39] VITALS: BP 121/74; PULSE 85; RESP 15; TEMP 36.5; O2SAT 97
== END 2020-06-29 10:28 | disposition home or self-care (01) | DRG 897 ==
LOC: ER 06-26 01:35 → NP 06-26 03:27
PROVIDERS: Admitting Provider Psychiatry & Neurology Psychiatry; Emergency Provider Emergency Medicine; Visit Provider Psychiatry & Neurology Psychiatry
DX: F10.229 Alcohol dependence with intoxication, unspecified (principal); R45.851 Suicidal ideations; K86.0 Alcohol-induced chronic pancreatitis; F10.239 Alcohol dependence with withdrawal, unspecified; D64.9 Anemia, unspecified; G56.00 Carpal tunnel syndrome, unspecified upper limb; G89.29 Other chronic pain; M54.40 Lumbago with sciatica, unspecified side; K70.30 Alcoholic cirrhosis of liver without ascites; K21.9 Gastro-esophageal reflux disease without esophagitis; F17.210 Nicotine dependence, cigarettes, uncomplicated
CPT/HCPCS: 80053; 80307; 85025; 96372; 96374; 99285; J2060; J3490; Q0162

== ENCOUNTER 2020-11-26 20:06 | Emergency (ER) | payer MEDICAID, SELFPAY ==
[2020-11-26 20:14] VITALS: BP 132/84; PULSE 89; RESP 18; TEMP 36.7; O2SAT 99; BMI 31.0
--- NOTE | 2020-11-26 20:24 | XRR_ITS ---
PROCEDURE INFORMATION: Exam: XR Right Ribs with PA Chest Exam date and time: 11/26/2020 8:24 PM Age: 49 years old Clinical indication: Other: RT rib pain; Additional info: Injury TECHNIQUE: Imaging protocol: XR Right ribs with PA chest. Views: 3 views COMPARISON: CR XR chest 1V portable [id number] 06/28/2019 10:25 PM FINDINGS: Lungs: Unremarkable. No consolidation. Pleural spaces: Unremarkable. No pleural effusion. No pneumothorax. Heart/Mediastinum: Unremarkable. No cardiomegaly. Bones/joints: Old callused lateral right 4th and 5th rib fractures. Questionable nondisplaced fracture of the right lateral 10th rib. The rest of the osseous structures appear intact. Sequela of ACDF in the lower cervical spine. XR/XR ribs RT mn 3V w CXR1V [id number] IMPRESSION: Questionable nondisplaced fracture of the right lateral 10th rib. Correlate for point tenderness. Radiation Dose CTDIVOL = (mGy): DLP = (mGy-cm)
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
--- NOTE | 2020-11-26 20:32 | XRR_ITS ---
PROCEDURE INFORMATION: Exam: XR Right Ankle Exam date and time: 11/26/2020 8:32 PM Age: 49 years old Clinical indication: Pain; Ankle; Right; Additional info: Injury TECHNIQUE: Imaging protocol: XR Right ankle. Views: 3 or more views. COMPARISON: No relevant prior studies available. FINDINGS: Bones/joints: 3 mm ossification inferior to the tip of the lateral malleolus with a suspected donor site in this region. Joint spaces are preserved. Soft tissues: Soft tissue swelling along the lateral aspect of the ankle. XR/XR ankle RT min 3V* [id number] IMPRESSION: Findings suspicious for avulsion fracture inferior to the lateral malleolus. Radiation Dose CTDIVOL = (mGy): DLP = (mGy-cm)
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
[2020-11-26 21:51] VITALS: BP 138/87; PULSE 84; RESP 18; O2SAT 97
[2020-11-26 21:52] VITALS: RESP 18; O2SAT 97
[2020-11-26] MEDS: morphine 4 mg/mL SDV 1 mL IM (21:52)
[2020-11-26 22:19] VITALS: BP 138/87; PULSE 80; RESP 18; O2SAT 98
--- NOTE | 2020-11-26 22:19 | PC.NURSE ---
pt stated she has crutches at home and is unable to use them secondary to the pain in her right rib
--- NOTE | 2020-11-29 13:42 | DCPLANNER ---
dairy frozen manager had message to schedule a follow up appointment for patient with ortho. dairy frozen manager spoke with Garima at ortho, gave clinic patients information. dairy frozen manager was told that patients information would be printed and reviewed. Clinic will call patient with appointment information.
--- NOTE | 2020-12-03 13:43 | DCPLANNER ---
Patient had a follow up appointment scheduled for 11.30.[address] Gandhi at [facility] - patient did attend appointment.
== END 2020-11-26 22:20 | disposition home or self-care (01) ==
PROVIDERS: Emergency Provider Nurse Practitioner Family
DX: S22.31XA Fracture of one rib, right side, initial encounter for closed fracture (principal); S82.64XA Nondisplaced fracture of lateral malleolus of right fibula, initial encounter for closed fracture; F17.210 Nicotine dependence, cigarettes, uncomplicated; Y04.2XXA Assault by strike against or bumped into by another person, initial encounter
CPT/HCPCS: 29515; 71101; 73610; 96372; 99283; J2270

== ENCOUNTER 2020-11-29 15:02 | Emergency (ER) | payer MEDICAID, SELFPAY ==
[2020-11-29 15:08] VITALS: BP 107/65; PULSE 96; RESP 20; TEMP 36.6; O2SAT 98; BMI 34.3
--- NOTE | 2020-11-29 16:05 | XRR_ITS ---
PROCEDURE INFORMATION: Exam: XR Right Ribs Exam date and time: 11/29/2020 4:05 PM Age: 49 years old Clinical indication: Pain and injury or trauma; Other: Not specified; Rib area; Blunt trauma (contusions or hematomas); Chest wall pain; Right; Injury date: 4 days ago; Prior surgery; Surgery type: Hysterectomy; Additional info: Rib pain TECHNIQUE: Imaging protocol: XR Right ribs. Views: 2 views. COMPARISON: CR (CHEST, ) 11/26/2020 8:37 PM FINDINGS: Bones/joints: Previously questioned right lateral 10th rib fracture not seen on current exam. Right posterior lateral 3rd, 4th and 5th minimally displaced fractures suspected which may be chronic. Soft tissues: Normal. XR/XR ribs RT 2V* [id number] IMPRESSION: 1. Previously questioned right lateral 10th rib fracture not seen on current exam. 2. Right posterior lateral 3rd, 4th and 5th minimally displaced fractures suspected which may be chronic. Radiation Dose CTDIVOL = (mGy): DLP = (mGy-cm)
--- NOTE | 2020-11-29 16:06 | XRR_ITS ---
PROCEDURE INFORMATION: Exam: XR Chest Exam date and time: 11/29/2020 4:06 PM Age: 49 years old Clinical indication: Pain and injury or trauma; Other: Not specified; Blunt trauma (contusions or hematomas); Chest wall pain and right-sided; Injury details: Injured RT ribs 4 days ago and feels as if she has more injured now. ; Prior surgery; Surgery type: Hysterectomy; Additional info: Eval for more than 1 rib FX TECHNIQUE: Imaging protocol: XR of the chest. Views: 2 views. COMPARISON: CR (CHEST, ) 11/26/2020 8:37 PM FINDINGS: Lungs: Unremarkable. No consolidation. Pleural spaces: Unremarkable. No pleural effusion. No pneumothorax. Heart/Mediastinum: Unremarkable. No cardiomegaly. Bones/joints: Unremarkable. XR/XR chest 2V* [id number] IMPRESSION: Lungs are clear, please see same-day rib radiograph series for discussion of the ribs. Radiation Dose CTDIVOL = (mGy): DLP = (mGy-cm)
[2020-11-29 16:08] VITALS: BP 110/68; PULSE 96; RESP 19; O2SAT 98
[2020-11-29 16:14] VITALS: RESP 19
[2020-11-29] MEDS: morphine 4 mg/mL SDV 1 mL IM ×2 (16:14→17:15)
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
[2020-11-29] MEDS: lidocaine 5% Patch 1 PATCH TOPICAL (17:15)
--- NOTE | 2020-11-29 17:17 | PC.NURSE ---
PROVIDER TRIED TO PERFORM A SPINAL NERVE BLOCK ON PATIENT. PATIENT WAS IN TOO MUCH PAIN TO CONTINUE WITH PROCEDURE. PROVIDER STOPPED PROCEDURE. LIDOCAINE PATCH AND MORPHINE PROVIDED TO PATIENT.
--- NOTE | 2020-11-30 09:08 | DCPLANNER ---
solar installation manager had message to schedule a follow up appointment for patient with ortho. solar installation manager had already been asked to schedule a follow up appointment for patient with ortho from a previous visit on November 26. Look at the notes from that visit to see appointment information.
== END 2020-11-29 17:58 | disposition home or self-care (01) ==
PROVIDERS: Emergency Provider Emergency Medicine
DX: R07.81 Pleurodynia (principal); F17.210 Nicotine dependence, cigarettes, uncomplicated
CPT/HCPCS: 71046; 71100; 96372; 99283; J2270; J3490

== ENCOUNTER 2021-01-21 12:02 | Emergency (ER) | payer MEDICAID, SELFPAY ==
[2021-01-21 12:54] VITALS: BP 142/91; PULSE 79; RESP 16; TEMP 36.4; O2SAT 97; BMI 30.5
[2021-01-21 13:21] LABS: Basophils # 0.1 10^3/uL (0.0-0.1); Basophils % 1.4 %; Eosinophils # 0.4 10^3/uL (0.0-0.8); Eosinophils % 7.2 %; Hematocrit 33.8 % (37.0-47.0); Hemoglobin 11.1 g/dL (11.5-15.3); Lymphocytes # 1.8 10^3/uL (0.8-4.8); Lymphocytes % 30.7 %; Mean Corpuscular HGB Conc 32.8 g/dL (30.0-36.0); Mean Corpuscular Hemoglobin 36.5 pg (28.0-34.0); Mean Corpuscular Volume 111.2 fl (81-99); Mean Platelet Volume 9.8 fL (7.4-10.4); Monocytes # 0.6 10^3/uL (0.2-0.9); Monocytes % 10.8 %; Neutrophils # 2.92 10^3/uL (1.8-7.7); Neutrophils % 49.7 %; Nucleated Red Blood Cells % 0 %; Platelet Count 223 10^3/cmm (130-400); Red Blood Count 3.04 10^6/uL (4.1-5.3); Red Cell Distribution Width 13.5 % (12.1-15.1); White Blood Count 5.9 10^3/uL (4.0-10.0)
[2021-01-21 13:23] LABS: Add Urine Microscopic? NO; Charge for UA Resulting for Rev
[2021-01-21 13:32] LABS: Specific Gravity, Urine 1.005 (1.005-1.030); Urine Appearance Clear (CLEAR); Urine Color Straw (Yellow); pH Urine 6.5 (5-7)
[2021-01-21 13:33] LABS: Bilirubin Urine Neg (Negative); Blood Urine Neg (Negative); Glucose Urine UA Norm (Normal); Ketones Urine Negative (Negative); Leukocyte Esterase Urine Negative (Negative); Nitrate Urine Negative (Negative); Protein Urine Neg (Negative); Urobilinogen Urine Norm (Negative)
[2021-01-21 13:35] LABS: INR 0.92 (0.8-1.2)
[2021-01-21 13:40] LABS: Alanine Aminotransferase 40 U/L (0-33); Albumin Level 4.2 g/dL (3.5-5.2); Alkaline Phosphatase 105 IU/L (35-105); Anion Gap 16.2 (5-19); Aspartate Amino Transferase 37 U/L (0-32); Blood Urea Nitrogen 5 mg/dL (6-20); Calcium 8.9 mg/dL (8.5-10.5); Carbon Dioxide 21 mmol/L (22-29); Chloride 108 mmol/L (98-107); Globulin 3.1 g/dL (1.3-4.6); Glucose 77 mg/dL (65-115); Osmolality Calculated 288 mOsm/kg (285-295); Potassium 4.2 mmol/L (3.5-5.1); Sodium 141 mmol/L (136-145); Total Bilirubin 0.2 mg/dL (0.15-1.2); Total Protein 7.3 g/dL (6.6-8.7)
--- NOTE | 2021-01-21 16:23 | XRR_ITS ---
PROCEDURE INFORMATION: Exam: XR Right Ribs with PA Chest Exam date and time: 01/21/2021 4:23 PM Age: 50 years old Clinical indication: Pain; Other: Right side; Prior surgery; Surgery type: Neck; Additional info: Pain, HX rib FX TECHNIQUE: Imaging protocol: XR Right ribs with PA chest. Views: 3 views Total images: 3 COMPARISON: CR XR chest 2V* [id number] 11/29/2020 4:21 PM FINDINGS: Lungs: No visible active interstitial or alveolar airspace disease. Pleural spaces: No pleural effusion. No pneumothorax. Heart/Mediastinum: Cardiac structures and configuration with mild cardiomegaly. Bones/joints: Previous cervical fusion. No radiographically visible recent rib fracture. Old right 3rd and 4th rib fracture. Mild scoliotic curvature. XR/XR ribs RT mn 3V w CXR1V [id number] IMPRESSION: No visible recent rib fracture.
--- NOTE | 2021-01-21 16:23 | CTR_ITS ---
PROCEDURE INFORMATION: Exam: CT Abdomen And Pelvis With Contrast Exam date and time: 01/21/2021 4:23 PM Age: 50 years old Clinical indication: Abdominal pain; Localized; Right upper quadrant (ruq); Prior surgery; Surgery type: Gb, hyst, appy; Additional info: Abd pain TECHNIQUE: Imaging protocol: Computed tomography of the abdomen and pelvis with contrast. Total images: 255 Radiation optimization: All CT scans at this facility use at least one of these dose optimization techniques: automated exposure control; mA and/or kV adjustment per patient size (includes targeted exams where dose is matched to clinical indication); or iterative reconstruction. Contrast material: OMNI 300; Contrast volume: 95 ml; Contrast route: INTRAVENOUS (IV); COMPARISON: CT abdomen pelvis w con* [id number] 06/08/2019 11:45 PM RADIATION DOSE METRICS: Total DLP (mGy-cm): 1639.5 FINDINGS: Lungs: Limited assessment of the lung bases fails to reveal evidence for active cardiopulmonary process. Diaphragm: Small hiatal hernia. Liver: Advanced diffuse fatty infiltration of the liver with hepatomegaly. No visible hepatic mass or cystic structure. Gallbladder and bile ducts: Status post cholecystectomy. Pancreas: Pancreas is unremarkable. No visible pancreatic ductal ectasia. Spleen: Spleen unremarkable. Adrenal glands: Adrenal glands unremarkable. Kidneys and ureters: No hydronephrosis or perinephric fluid. No visible nephrolithiasis. No visible ureterolithiasis. No visible renal mass. Stomach and bowel: Assessment of the hollow viscus fails to reveal evidence of active or acute pathology. Nonobstructed bowel pattern. No visible acute diverticulitis. No visible adynamic or reactive ileus. Heavy fecal residue consistent with constipation. Secure sigmoid anastomotic sutures. Appendix: Status post appendectomy. Intraperitoneal space: No visible pneumoperitoneum or intraperitoneal ascites. Vasculature: Portal vein patent. The abdominal aorta is nonaneurysmal. Lymph nodes: No current visible evidence of active mesenteric or retroperitoneal lymphadenopathy. No visible evidence of mesenteric lymphadenitis or active mesenteritis/panniculitis. Urinary bladder: Urinary bladder unremarkable. Reproductive: Status post hysterectomy. Bones/joints: No visible acute osseous abnormality. Mild scoliotic curvature of the spine. Soft tissues: Obesity. Other findings: Motion artifact. CT/CT abdomen pelvis w con* [id number] IMPRESSION: 1. Currently no visible evidence for acute abdominal or pelvic pathologic process. 2. Constipation. 3. Advanced diffuse fatty infiltration of the liver with hepatomegaly.
[2021-01-21 16:44] LABS: C Reactive Protein 14.4 mg/L (0.0-4.9); Lactic Sepsis W/Reflex 1.5 mmol/L (0.5-2.2)
--- NOTE | 2021-01-21 17:01 | W.ED.ABDPA2 ---
HPI - Abdominal Pain General: Chief Complaint: Abdominal Pain Stated Complaint: LEGS,FACE SWOLLEN AND BOIL ON BOTTOM Time Seen by Provider: 01/21/21 16:08 History of Present Illness: HPI narrative: 50-year-old female comes in complaining of right flank right upper quadrant abdominal pain. She notes she has a lesion on her left buttock. She made a comment to the nurse that her face was swollen however she not really have any facial swelling when I seen her. No vomiting no diarrhea no hematuria. MD elicited complaint: abdominal pain Onset (ago): hour(s) Pain Consistency: constant Location: RUQ Severity: moderate Quality: cramping and stabbing Radiation: none Exacerbating factors: nothing Relieving factors: nothing Associated Symptoms: Reports poor appetite; Denies anorexia, belching, bloating, change in bowel habits, change in stool character, chills, coffee ground emesis, constipation, GI cramping, diarrhea, dyspepsia, dysuria, excessive flatus, fever(s), heartburn, hematochezia, hematuria, hematemesis, fecal incontinence, loose stools, melena, nausea, syncope and vomiting Related Data: Date of Last Menstrual Period: 05/06/20 Review of Systems Const: Denies: fever(s) or chills ENMT: Denies: throat pain, ear or mastoid pain, nasal discharge or nasal congestion Card: Denies: syncope Resp: Denies: dyspnea, productive cough or non-productive cough GI: Denies: nausea, vomiting, hematemesis, coffee ground emesis, heartburn, diarrhea, constipation, bloating, GI cramping, belching, excessive flatus, fecal incontinence, change in bowel habits, change in stool character, hematochezia or melena : Denies: dysuria or hematuria Skin/Breast: Denies: rash or pruritus PFSH ED PFSH: Medical History (Updated 01/21/21 @ 18:01 by Robbin Brown DO) Alcoholism Anemia Carpal tunnel syndrome Chronic back pain Chronic pancreatitis Cirrhosis Enteritis GERD (gastroesophageal reflux disease) H. pylori infection Hepatitis A Sciatica Surgical History H/O rotator cuff surgery H/O: hysterectomy History of appendectomy History of cholecystectomy Family History Denies family history of Diabetes CAD (coronary artery disease) Dementia Social History Smoking and tobacco status: current every day smoker Alcohol intake: current Desire information about alcohol rehabilitation?: No Counseling given: Yes Last alcohol use date: 02/15/19 Female Reproductive History: Date of last menstrual period: 05/06/20 Physical Exam Const: COMMON NORMALS: no acute distress GENERAL APPEARANCE: cooperative and comfortable ORIENTATION/CONSCIOUSNESS: Yes awake, Yes oriented to person, Yes oriented to place and Yes oriented to time HENMT: COMMON NORMALS: normocephalic, atraumatic and hearing grossly normal bilaterally HEAD & SCALP: normocephalic and atraumatic Neck/C-Spine: COMMON NORMALS: no JVD Resp: COMMON NORMALS: normal respiratory effort, No retractions, No use of accessory muscles and clear to auscultation bilaterally AUSCULTATION: clear to auscultation bilaterally Cardio: COMMON NORMALS: no JVD, regular rate, regular rhythm and No murmurs present (Cardio) RATE: regular rate RHYTHM: regular rhythm GI: COMMON NORMALS: Soft to palpation and No hepatosplenomegaly present AUSCULTATION: Yes normoactive bowel sounds PALPATION: Yes Soft to palpation, No Tenderness to palpation present (GI), No Guarding due to palpation present (GI) and Yes No hepatosplenomegaly present Extremity: COMMON NORMALS: normal to inspection, capillary refill normal, no clubbing, cyanosis or edema, no calf tenderness and no pedal edema Neuro: SENSORIUM/ORIENTATION: Yes oriented to person, Yes oriented to place and Yes oriented to time Skin: COMMON NORMALS: no rashes or lesions noted GENERAL SKIN EXAM: no rashes or lesions noted Course Vital Signs: Vital signs: Vital Signs Temperature 97.6 F 01/21/21 12:54 Pulse Rate 79 01/21/21 12:54 Respiratory Rate 16 01/21/21 12:54 Blood Pressure 142/91 01/21/21 12:54 Pulse Oximetry 97 01/21/21 12:54 MDM - Abdominal Pain MDM Narrative: Medical decision making narrative: Labs and imaging reviewed. Patient has a significant musculoskeletal component to it. When she moves coughs or even with palpation she has significant pain was her primary presenting issue. She has had single vesicle on the right buttock but there is no other vesicles present she said it started with what seemed like a boil and she tried to express it. It does not look consistent with zoster and there is no other markings on the leg. She complaining of some swelling in her legs she has no calf tenderness. No sign of DVT. Encourage her to follow-up with her primary care doctor if she has any further problems. For now discharge her home clear liquid diet pain medications muscle relaxers treat as musculoskeletal also put her on a prednisone taper. Lab Data: Labs: Lab Results 01/21/21 01/21/21 01/21/21 12:58 13:10 13:10 WBC 5.9 10^3/uL 10^3/ uL (4.0-10.0) RBC 3.04 10^6/uL L 10 ^6/uL (4.1-5.3) Hgb 11.1 g/dL L g/dL (11.5-15.3) Hct 33.8 % L % (37.0-47.0) MCV 111.2 fl H fl (81-99) MCH 36.5 pg H pg (28.0-34.0) MCHC 32.8 g/dL g/dL (30.0-36.0) RDW 13.5 % % (12.1-15.1) Plt Count 223 10^3/cmm 10^3 /cmm (130-400) MPV 9.8 fL fL (7.4-10.4) Neut % (Auto) 49.7 % % Lymph % (Auto) 30.7 % % [place] % (Auto) 10.8 % % Eos % (Auto) 7.2 % % Baso % (Auto) 1.4 % % Neut # (Auto) 2.92 10^3/uL 10^3 /uL (1.8-7.7) Lymph # (Auto) 1.8 10^3/uL 10^3/ uL (0.8-4.8) [place] # (Auto) 0.6 10^3/uL 10^3/ uL (0.2-0.9) Eos # (Auto) 0.4 10^3/uL 10^3/ uL (0.0-0.8) Baso # (Auto) 0.1 10^3/uL 10^3/ uL (0.0-0.1) Nucleated RBC % (a uto) 0 % % Nucleated RBCs # 0.0 /100WBC /100W BC PT 12.60 SECONDS SEC ONDS (12.1-14.9) INR 0.92 (0.8-1.2) D-Dimer Sodium Potassium Chloride Carbon Dioxide Anion Gap BUN Creatinine GFR Calculation Glucose Calculated Osmolal ity Lactic Acid Calcium Total Bilirubin AST ALT Alkaline Phosphata se C-Reactive Protein Total Protein Albumin Globulin Urine Color Straw (Yellow) Urine Appearance Clear (CLEAR) Urine pH 6.5 (5-7) Ur Specific Gravit y 1.005 (1.005-1.030) Urine Protein Neg (Negative) Urine Glucose (UA) Norm (Normal) Urine Ketones Negative (Negative) Urine Blood Neg (Negative) Urine Nitrate Negative (Negative) Urine Bilirubin Neg (Negative) Urine Urobilinogen Norm mg/dL mg/dL (Negative) Ur Leukocyte Susan ase Negative (Negative) 01/21/21 01/21/21 01/21/21 13:10 13:10 13:10 WBC RBC Hgb Hct MCV MCH MCHC RDW Plt Count MPV Neut % (Auto) Lymph % (Auto) [place] % (Auto) Eos % (Auto) Baso % (Auto) Neut # (Auto) Lymph # (Auto) [place] # (Auto) Eos # (Auto) Baso # (Auto) Nucleated RBC % (a uto) Nucleated RBCs # PT INR D-Dimer 1.23 ug/mIFEU H u g/mIFEU (0-0.59) Sodium 141 mmol/L mmol/L (136-145) Potassium 4.2 mmol/L mmol/L (3.5-5.1) Chloride 108 mmol/L H mmol /L (98-107) Carbon Dioxide 21 mmol/L L mmol/ L (22-29) Anion Gap 16.2 (5-19) BUN 5 mg/dL L mg/dL (6-20) Creatinine 0.6 mg/dL mg/dL (0.5-0.9) GFR Calculation 105.0 mL/min mL/m in (90-130) Glucose 77 mg/dL mg/dL (65-115) Calculated Osmolal ity 288 mOsm/kg mOsm/ kg (285-295) Lactic Acid Calcium 8.9 mg/dL mg/dL (8.5-10.5) Total Bilirubin 0.2 mg/dL mg/dL (0.15-1.2) AST 37 U/L H U/L (0-32) ALT 40 U/L H U/L (0-33) Alkaline Phosphata se 105 IU/L IU/L (35-105) C-Reactive Protein 14.4 mg/L H mg/L (0.0-4.9) Total Protein 7.3 g/dL g/dL (6.6-8.7) Albumin 4.2 g/dL g/dL (3.5-5.2) Globulin 3.1 g/dL g/dL (1.3-4.6) Urine Color Urine Appearance Urine pH Ur Specific Gravit y Urine Protein Urine Glucose (UA) Urine Ketones Urine Blood Urine Nitrate Urine Bilirubin Urine Urobilinogen Ur Leukocyte Susan ase 01/21/21 13:10 WBC RBC Hgb Hct MCV MCH MCHC RDW Plt Count MPV Neut % (Auto) Lymph % (Auto) [place] % (Auto) Eos % (Auto) Baso % (Auto) Neut # (Auto) Lymph # (Auto) [place] # (Auto) Eos # (Auto) Baso # (Auto) Nucleated RBC % (a uto) Nucleated RBCs # PT INR D-Dimer Sodium Potassium Chloride Carbon Dioxide Anion Gap BUN Creatinine GFR Calculation Glucose Calculated Osmolal ity Lactic Acid 1.5 mmol/L mmol/L (0.5-2.2) Calcium Total Bilirubin AST ALT Alkaline Phosphata se C-Reactive Protein Total Protein Albumin Globulin Urine Color Urine Appearance Urine pH Ur Specific Gravit y Urine Protein Urine Glucose (UA) Urine Ketones Urine Blood Urine Nitrate Urine Bilirubin Urine Urobilinogen Ur Leukocyte Susan ase Discharge Plan Discharge Patient Disposition: Home Clinical Impression: Rib pain on right side Condition: Stable Prescriptions: New hydrocodone-acetaminophen 5-325 mg tablet 1 tab PO Q6H PRN (Reason: pain) Qty: 10 RF: 0 tizanidine 4 mg capsule 4 mg PO Q6H PRN (Reason: muscle spasticity) Qty: 20 RF: 0 prednisone 20 mg tablet 20 mg PO BID 7 Days Qty: 15 RF: 0 No Action Combivent Respimat 20-100 mcg/actuation mist 1 puff INHALATION QID PRN (Reason: Bronchospasm) RF: 0 hydrocodone-acetaminophen 5-325 mg tablet 1 tab PO Q8H PRN (Reason: pain) Qty: 7 RF: 0 omeprazole 40 mg Capsule,Delayed Release(Dr/Ec) 40 mg PO QAM RF: 0 Tylenol Ex Str Rapid Release 500 mg Tablet 1,000 mg PO Q4H PRN (Reason: Pain) RF: 0 nitroglycerin 0.4 mg tablet, sublingual 0.4 mg sublingual Q5M PRN (Reason: Chest Pain) RF: 0 ProAir HFA 90 mcg/actuation HFA aerosol inhaler 2 puff INHALATION Q4H PRN (Reason: Shortness Of Breath) RF: 0 Discharge Orders: Discharge ED (Routine); Ordered 01/21/21 Ordered By: Robbin Brown Discharge Diet: Clear Liquid Discharge Activity: Increase activity as tolerated Patient Instructions: Opioid Safety Activity Restrictions/Additional Instructions: Ice or heat as needed on the affected area. Follow-up with primary care doctor within the next few days. Coding Level of Care Code ED [employer] [place] for Shila Fwd Exam Comprehensive
[2021-01-21] MEDS: iohexol 300 mg/mL 100 mL Btl IV (17:13)
[2021-01-21] MEDS: HYDROcodone-acetaminophen 5-325 mg Tablet 1 TAB PO (17:28)
[2021-01-21 18:06] LABS: D Dimer 1.23 ug/mIFEU (0-0.59)
== END 2021-01-21 18:37 | disposition home or self-care (01) ==
PROVIDERS: Emergency Medicine; Emergency Provider Family Medicine
DX: R07.81 Pleurodynia (principal); F17.210 Nicotine dependence, cigarettes, uncomplicated
CPT/HCPCS: 71101; 74177; 80053; 81003; 83605; 85025; 85378; 85610; 86140; 99283; Q9967

== ENCOUNTER 2021-02-16 12:37 | Emergency (ER) | payer MEDICAID, SELFPAY ==
--- NOTE | 2021-02-16 12:40 | XR_ITS ---
WS: [id number] Portable AP upright chest, 02/16/2021 Clinical Data: sob Comparison: Portable chest, 01/21/2021 Findings: No nodules, masses or effusions are seen. The heart is normal. The pulmonary vascularity is not increased. No pneumonia or pneumothorax is seen. There are old right third and fourth rib fractu res. There is an anterior cervical disc fusion. XR/XR chest 1V portable [id number] Impression: Negative chest.
[2021-02-16 13:12] VITALS: BP 121/75; PULSE 107; RESP 22; TEMP 37.1; O2SAT 97; BMI 30.5
[2021-02-16 14:04] LABS: Basophils % 0.5 %; Eosinophils # 0.1 10^3/uL (0.0-0.8); Eosinophils % 1.4 %; Hematocrit 40.1 % (37.0-47.0); Hemoglobin 14.1 g/dL (11.5-15.3); Lymphocytes # 1.4 10^3/uL (0.8-4.8); Lymphocytes % 23.6 %; Mean Corpuscular HGB Conc 35.2 g/dL (30.0-36.0); Mean Corpuscular Hemoglobin 35.4 pg (28.0-34.0); Mean Corpuscular Volume 100.8 fl (81-99); Mean Platelet Volume 11.1 fL (7.4-10.4); Monocytes # 0.5 10^3/uL (0.2-0.9); Monocytes % 8.6 %; Neutrophils # 3.74 10^3/uL (1.8-7.7); Neutrophils % 65.5 %; Nucleated Red Blood Cells % 0 %; Platelet Count 132 10^3/cmm (130-400); Red Blood Count 3.98 10^6/uL (4.1-5.3); Red Cell Distribution Width 12.7 % (12.1-15.1); White Blood Count 5.7 10^3/uL (4.0-10.0)
[2021-02-16 14:26] LABS: Alanine Aminotransferase 92 U/L (0-33); Albumin Level 4.6 g/dL (3.5-5.2); Alkaline Phosphatase 115 IU/L (35-105); Anion Gap 28.1 (5-19); Aspartate Amino Transferase 104 U/L (0-32); Blood Urea Nitrogen 9 mg/dL (6-20); Calcium 9.7 mg/dL (8.5-10.5); Carbon Dioxide 17 mmol/L (22-29); Chloride 92 mmol/L (98-107); Globulin 3.6 g/dL (1.3-4.6); Glomerular Filtration Rate 87.9 mL/min (90-130); Glucose 78 mg/dL (65-115); Osmolality Calculated 274 mOsm/kg (285-295); Potassium 4.1 mmol/L (3.5-5.1); Sodium 133 mmol/L (136-145); Total Bilirubin 0.5 mg/dL (0.15-1.2); Total Protein 8.2 g/dL (6.6-8.7)
[2021-02-16 14:31] LABS: Alcohol Level < 10 mg/dL (0-10)
[2021-02-16] MEDS: sodium chloride 0.9% 1,000 ML 999 ML IV ×3 (16:50→18:50)
[2021-02-16] MEDS: ondansetron 2 mg/ML SDV 2 mL 4 MG IVP ×3 (16:50→21:36)
--- NOTE | 2021-02-16 17:03 | ED_ITS ---
HPI - General Adult General: Chief complaint: Abdominal Pain Stated complaint: n/v/d, headache, sob Time Seen by Provider: 02/16/21 16:30 History of Present Illness: HPI narrative: Patient is a 50-year-old female presenting to the emergency room with nausea/vomiting, diarrhea headache and shortness of breath x5 days after being exposed to her boyfriend at home with Covid. Patient tells me that for the last month, she has had upset stomach including nausea vomiting and diarrhea. Around 5 days ago, patient symptoms have significantly worsened. Patient reports generalized fatigue malaise, and not able to tolerate PO. Onset: 5 days ago Duration:ongoing Location:home Severity:moderate Associated symptoms: Reports dyspnea, nausea and vomiting; Deny chest pain, rash or palpitations Review of Systems Const: Denies: fever(s) or chills Eyes: Denies: change in vision ENMT: Denies: mouth pain Card: Denies: chest pain or palpitations Resp: Reports: dyspnea and non-productive cough GI: Reports: abdominal pain, nausea, vomiting, diarrhea and other (L sided flank pain) : Denies: dysuria Musc: Denies: extremity pain Skin/Breast: Denies: rash or new lesions Neuro: Denies: weakness in extremities Psych: Reports: other (Normal mood) Eric/Lymph: Denies: easy bruising [facility] ED PFSH: Medical History (Updated 02/16/21 @ 21:01 by Mike Toscano MD) Alcoholism Anemia Carpal tunnel syndrome Chronic back pain Chronic pancreatitis Cirrhosis Enteritis GERD (gastroesophageal reflux disease) H. pylori infection Hepatitis A Sciatica Surgical History H/O rotator cuff surgery H/O: hysterectomy History of appendectomy History of cholecystectomy Family History Denies family history of Diabetes CAD (coronary artery disease) Dementia Social History Smoking and tobacco status: current every day smoker Alcohol intake: current Desire information about alcohol rehabilitation?: No Counseling given: Yes Last alcohol use date: 02/15/19 Female Reproductive History: Date of last menstrual period: 05/06/20 Physical Exam Const: COMMON NORMALS: alert HENMT: COMMON NORMALS: atraumatic HEAD & SCALP: atraumatic MOUTH: moist mucous membranes abnormal Eye: COMMON NORMALS: EOMs intact bilaterally and conjunctivae normal CONJUNCTIVA: Yes conjunctivae normal Neck/C-Spine: COMMON NORMALS: full ROM and supple Resp: COMMON NORMALS: normal respiratory effort and clear to auscultation bilaterally AUSCULTATION: clear to auscultation bilaterally Cardio: COMMON NORMALS: regular rate RATE: regular rate GI: COMMON NORMALS: no bruits OTHER: +mild diffuse tenderness to paplpation, no abdominal distension. NO guarding rebound, guarding, rigidity. No CVA tenderness to percussion. Neg Pena/Neg McBurney's point tenderness, no suprabupic tenderness to palpation. Extremity: COMMON NORMALS: full ROM Neuro: SENSORIUM/ORIENTATION: Yes alert MOTOR EXAM: Abnormal motor strength present and Other motor observations present (no focla motor deficits) Psych: COMMON NORMALS: speech normal SPEECH: Yes normal speech MOOD & AFFECT: Yes euthymic mood Course Vital Signs: Vital signs: Vital Signs Temperature 98.7 F 02/16/21 13:12 Pulse Rate 92 02/16/21 21:00 Respiratory Rate 26 H 02/16/21 20:47 Blood Pressure 124/86 02/16/21 21:00 Pulse Oximetry 92 02/16/21 21:00 MDM - General Adult MDM Narrative: Medical decision making narrative: Patient is a 50-year-old female presenting to the emergency with nausea/vomiting and diarrhea, shortness of breath and cough for last 5 days after being exposed to her boyfriend positive with Covid. Patient has had symptoms of nausea vomiting decreased pain take for the last month as worsening since then. Arrival, patient appears to be dry on exam. Work-up, CBC, CMP, lipase, UA, x-ray chest, Covid swab Intervention: IVF, Pepcid, GI cocktail, Zofran Patient is noted to have mildly elevated D-dimer. Decision was made to order CTA given persistent left-sided flank pain. CTA showed multiple groundglass possibly consistent with possible multifocal pneumonia versus Covid. Patient is Covid PCR is negative today. Given this finding I have given patient instruction to follow with PCP in the next 24 to 48 hours for repeat Covid test. I do not suspect that his multifocal pneumonia at the present time given the fact the patient is afebrile, has no leukocytosis and has a sick family with Covid symptoms. Symptoms are likely reflective of Covid. After trial GI cocktail, patient reports symptomatic improvement at this time. Patient is able to tolerate p.o. without difficulty. Signs of respiratory distress no other focal findings at this time. Patient does not require any oxygen. I have given patient follow up with our case management rn to be seen by a PCP for covid retest and to evaluate whether XR findings are getting worse. Patient aware of a call from our case management rn to schedule for appointment(s) and verbalizes understanding of the importance of following up. I have given patient strict return precaution for any drops in the pulse ox to less than 88% while on oxygen. Rx tylenol PRN abd pain, maalox/pepcid PRN dyspepsia, and zofran PRN nausea/vomiting Disposition: Discharge. Patient counseled regarding diagnostic impression, treatment plan. Patient given ED strict return precautions to return for continuation, worsening, or development of new symptoms. Instructed to f/u w/ PCP regarding symptoms today. Patient verbalized understanding. Lab Data: Labs: Lab Results 02/16/21 02/16/21 02/16/21 13:50 13:50 13:50 WBC 5.7 10^3/uL 10^3/ uL (4.0-10.0) RBC 3.98 10^6/uL L 10 ^6/uL (4.1-5.3) Hgb 14.1 g/dL g/dL (11.5-15.3) Hct 40.1 % % (37.0-47.0) MCV 100.8 fl H fl (81-99) MCH 35.4 pg H pg (28.0-34.0) MCHC 35.2 g/dL g/dL (30.0-36.0) RDW 12.7 % % (12.1-15.1) Plt Count 132 10^3/cmm 10^3 /cmm (130-400) MPV 11.1 fL H fL (7.4-10.4) Neut % (Auto) 65.5 % % Lymph % (Auto) 23.6 % % Desha % (Auto) 8.6 % % Eos % (Auto) 1.4 % % Baso % (Auto) 0.5 % % Neut # (Auto) 3.74 10^3/uL 10^3 /uL (1.8-7.7) Lymph # (Auto) 1.4 10^3/uL 10^3/ uL (0.8-4.8) Desha # (Auto) 0.5 10^3/uL 10^3/ uL (0.2-0.9) Eos # (Auto) 0.1 10^3/uL 10^3/ uL (0.0-0.8) Baso # (Auto) 0.0 10^3/uL 10^3/ uL (0.0-0.1) Nucleated RBC % (a uto) 0 % % Nucleated RBCs # 0.0 /100WBC /100W BC D-Dimer Sodium 133 mmol/L L mmol /L (136-145) Potassium 4.1 mmol/L mmol/L (3.5-5.1) Chloride 92 mmol/L L mmol/ L (98-107) Carbon Dioxide 17 mmol/L L mmol/ L (22-29) Anion Gap 28.1 H (5-19) BUN 9 mg/dL mg/dL (6-20) Creatinine 0.7 mg/dL mg/dL (0.5-0.9) GFR Calculation 87.9 mL/min L mL/ min (90-130) Glucose 78 mg/dL mg/dL (65-115) Calculated Osmolal ity 274 mOsm/kg L mOs m/kg (285-295) Calcium 9.7 mg/dL mg/dL (8.5-10.5) Total Bilirubin 0.5 mg/dL mg/dL (0.15-1.2) AST 104 U/L H U/L (0-32) ALT 92 U/L H U/L (0-33) Alkaline Phosphata se 115 IU/L H IU/L (35-105) Total Protein 8.2 g/dL g/dL (6.6-8.7) Albumin 4.6 g/dL g/dL (3.5-5.2) Globulin 3.6 g/dL g/dL (1.3-4.6) Lipase 69 U/L H U/L (13-60) Urine Color Urine Appearance Urine pH Ur Specific Gravit y Urine Protein Urine Glucose (UA) Urine Ketones Urine Blood Urine Nitrate Urine Bilirubin Urine Urobilinogen Ur Leukocyte Susan ase Urine RBC Urine WBC Ur Squamous Epith Cells Amorphous Sediment Urine Bacteria Urine Opiates Scre en Ur Barbiturates Sc reen Ur Phencyclidine S crn Ur Amphetamines Sc reen U Benzodiazepines Scrn Urine Cocaine Scre en U Marijuana (THC) Screen Ethyl Alcohol < 10 mg/dL mg/dL (0-10) SARS-CoV-2 Ag (Rap id) 02/16/21 02/16/21 02/16/21 13:50 16:39 19:25 WBC RBC Hgb Hct MCV MCH MCHC RDW Plt Count MPV Neut % (Auto) Lymph % (Auto) Desha % (Auto) Eos % (Auto) Baso % (Auto) Neut # (Auto) Lymph # (Auto) Desha # (Auto) Eos # (Auto) Baso # (Auto) Nucleated RBC % (a uto) Nucleated RBCs # D-Dimer 1.03 ug/mIFEU H u g/mIFEU (0-0.59) Sodium Potassium Chloride Carbon Dioxide Anion Gap BUN Creatinine GFR Calculation Glucose Calculated Osmolal ity Calcium Total Bilirubin AST ALT Alkaline Phosphata se Total Protein Albumin Globulin Lipase Urine Color Dark yellow (Yellow) Urine Appearance Cloudy (CLEAR) Urine pH 5 (5-7) Ur Specific Gravit y 1.015 (1.005-1.030) Urine Protein Trace (Negative) Urine Glucose (UA) Norm (Normal) Urine Ketones 2+ H (Negative) Urine Blood Neg (Negative) Urine Nitrate Positive H (Negative) Urine Bilirubin Neg (Negative) Urine Urobilinogen Norm mg/dL mg/dL (Negative) Ur Leukocyte Susan ase Negative (Negative) Urine RBC None /hpf /hpf (0-2) Urine WBC 0-4 /hpf H /hpf (0-5) Ur Squamous Epith Cells 0-4 /hpf H /hpf (0-5) Amorphous Sediment Not Reportable Urine Bacteria 3+ /hpf H /hpf (NONE) Urine Opiates Scre en Ur Barbiturates Sc reen Ur Phencyclidine S crn Ur Amphetamines Sc reen U Benzodiazepines Scrn Urine Cocaine Scre en U Marijuana (THC) Screen Ethyl Alcohol SARS-CoV-2 Ag (Rap id) Negative (Negative) 02/16/21 19:25 WBC RBC Hgb Hct MCV MCH MCHC RDW Plt Count MPV Neut % (Auto) Lymph % (Auto) Desha % (Auto) Eos % (Auto) Baso % (Auto) Neut # (Auto) Lymph # (Auto) Desha # (Auto) Eos # (Auto) Baso # (Auto) Nucleated RBC % (a uto) Nucleated RBCs # D-Dimer Sodium Potassium Chloride Carbon Dioxide Anion Gap BUN Creatinine GFR Calculation Glucose Calculated Osmolal ity Calcium Total Bilirubin AST ALT Alkaline Phosphata se Total Protein Albumin Globulin Lipase Urine Color Urine Appearance Urine pH Ur Specific Gravit y Urine Protein Urine Glucose (UA) Urine Ketones Urine Blood Urine Nitrate Urine Bilirubin Urine Urobilinogen Ur Leukocyte Susan ase Urine RBC Urine WBC Ur Squamous Epith Cells Amorphous Sediment Urine Bacteria Urine Opiates Scre en Negative ng/mL ng /mL (Negative) Ur Barbiturates Sc reen Negative ng/mL ng /mL (Negative) Ur Phencyclidine S crn Negative ng/mL ng /mL (Negative) Ur Amphetamines Sc reen Negative ng/mL ng /mL (Negative) U Benzodiazepines Scrn Negative ng/mL ng /mL (Negative) Urine Cocaine Scre en Negative ng/mL ng /mL (Negative) U Marijuana (THC) Screen Positive ng/mL H ng/mL (Negative) Ethyl Alcohol SARS-CoV-2 Ag (Rap id) Imaging Data^: Other Imaging: Radiologist's impression: [facility] [id number] Scan ReportSigned Patient: Melissa Portillo #: [id number]: [id number]#:[id number]/Sex: 50 / FADM Date: 02/16/21Loc: ERRoom/Bed:Attending Dr: Ordering Provider/Ordering MD: Mike Toscano MD Date of Service: 02/16/21 Procedure(s): CT angio chest w abd pel w con Accession Number(s): [id number] Report Number: [id number] PROCEDURE INFORMATION: Exam: CTA Chest With Contrast Exam date and time: 02/16/2021 8:00 PM Age: 50 years old Clinical indication: Nausea and vomiting; Shortness of breath; Prior surgery; Surgery type: Hyst, appy, gb; Additional info: Eval for pe, elevated d-dimer, n/v TECHNIQUE: Imaging protocol: Computed tomographic angiography of the chest with contrast. 3D rendering (Not supervised by radiologist): MIP and/or 3D reconstructed images were created by the technologist. Radiation optimization: All CT scans at this facility use at least one of these dose optimization techniques: automated exposure control; mA and/or kV adjustment per patient size (includes targeted exams where dose is matched to clinical indication); or iterative reconstruction. Contrast material: OMNI 350; Contrast volume: 95 ml; Contrast route: INTRAVENOUS (IV); COMPARISON: CR (CHEST, ) 01/21/2021 4:50 PM RADIATION DOSE METRICS: Total DLP (mGy-cm): 1535.6 FINDINGS: Limitations: Due to extensive respiratory motion artifact, evaluation for pulmonary embolism within the segmental/subsegmental pulmonary arterial branches is limited. Pulmonary arteries: No evidence of pulmonary emboli. Aorta: Unremarkable. No aortic aneurysm. No aortic dissection. Lungs: Scattered small peripheral ground-glass opacities within both lungs. No masses. Pleural spaces: Unremarkable. No pneumothorax. No pleural effusion. Heart: Unremarkable. No cardiomegaly. No pericardial effusion. Lymph nodes: Unremarkable. No enlarged lymph nodes. Bones/joints: No acute fracture. Soft tissues: Unremarkable. PROCEDURE INFORMATION: Exam: CT Abdomen And Pelvis With Contrast Exam date and time: 02/16/2021 8:00 PM Age: 50 years old Clinical indication: Nausea and vomiting; Shortness of breath; Prior surgery; Surgery type: Hyst, appy, gb; Additional info: Eval for pe, elevated d-dimer, n/v TECHNIQUE: Imaging protocol: Computed tomography of the abdomen and pelvis with contrast. Radiation optimization: All CT scans at this facility use at least one of these dose optimization techniques: automated exposure control; mA and/or kV adjustment per patient size (includes targeted exams where dose is matched to clinical indication); or iterative reconstruction. Contrast material: OMNI 350; Contrast volume: 95 ml; Contrast route: INTRAVENOUS (IV); COMPARISON: CR (CHEST, ) 01/21/2021 4:50 PM RADIATION DOSE METRICS: Total DLP (mGy-cm): 1535.6 FINDINGS: Liver: Diffuse hepatic steatosis. No mass. Gallbladder and bile ducts: Cholecystectomy. Mildly dilated common bile duct with smooth tapering up to 1.2 cm, likely secondary to reservoir effect from prior cholecystectomy. Pancreas: Normal. No ductal dilation. Spleen: Normal. No splenomegaly. Adrenal glands: Normal. No mass. Kidneys and ureters: Normal. No hydronephrosis. Stomach and bowel: No obstruction. No mucosal thickening. Sigmoidectomy with anastomotic sutures noted. Appendix: Appendectomy. Intraperitoneal space: Unremarkable. No free air. No significant fluid collection. Vasculature: Unremarkable. No abdominal aortic aneurysm. Lymph nodes: Unremarkable. No enlarged lymph nodes. Urinary bladder: Under distended, grossly unremarkable. Reproductive: Hysterectomy. Bones/joints: No acute fracture. Soft tissues: Unremarkable. CT/CT angio chest w abd pel w con IMPRESSION: 1. No evidence of pulmonary embolism within the limitations of the examination described in the body of the report. 2. Scattered small peripheral ground-glass opacities within both lungs suspicious for multifocal infection, including COVID pneumonia. IMPRESSION: 1. No acute findings. 2. Diffuse hepatic steatosis. Dictated By:Mega Bello DOSigned By:Mega Bello DOSigned Date/Time:02/16/21D/ 99 Discharge Plan Discharge Patient Disposition: Home Clinical Impression: Diarrhea, Flank pain, Nausea & vomiting, Cough Condition: Stable Prescriptions: New Zofran 4 mg tablet 4 mg PO TID PRN (Reason: nausea and vomiting) 4 Days Qty: 12 RF: 0 acetaminophen 500 mg tablet 500 mg PO Q6H PRN (Reason: pain) 5 Days Qty: 20 RF: 0 Pepcid 20 mg tablet 20 mg PO BID PRN (Reason: abdominal pain) 10 Days Qty: 20 RF: 0 Maalox Advanced 1,000-60 mg tablet,chewable 1 tab PO TID PRN (Reason: abdominal pain) 7 Days Qty: 21 RF: 0 No Action Combivent Respimat 20-100 mcg/actuation mist 1 puff INHALATION QID PRN (Reason: Bronchospasm) RF: 0 hydrocodone-acetaminophen 5-325 mg tablet 1 tab PO Q8H PRN (Reason: pain) Qty: 7 RF: 0 hydrocodone-acetaminophen 5-325 mg tablet 1 tab PO Q6H PRN (Reason: pain) Qty: 10 RF: 0 tizanidine 4 mg capsule 4 mg PO Q6H PRN (Reason: muscle spasticity) Qty: 20 RF: 0 omeprazole 40 mg Capsule,Delayed Release(Dr/Ec) 40 mg PO QAM RF: 0 Tylenol Ex Str Rapid Release 500 mg Tablet 1,000 mg PO Q4H PRN (Reason: Pain) RF: 0 nitroglycerin 0.4 mg tablet, sublingual 0.4 mg sublingual Q5M PRN (Reason: Chest Pain) RF: 0 ProAir HFA 90 mcg/actuation HFA aerosol inhaler 2 puff INHALATION Q4H PRN (Reason: Shortness Of Breath) RF: 0 Discharge Orders: Discharge ED (Routine); Ordered 02/16/21 Ordered By: Mike Toscano Discharge Diet: Advance as tolerated Discharge Activity: Resume usual activity Patient Instructions: Opioid Safety Activity Restrictions/Additional Instructions: Come back to the emergency room if your symptoms worsen, have any shortness of breath, fever/chills, dehydration, inability tolerate p.o., any difficulty breathing, or any new or concerning complaints. Please return the emergency room if your pulse ox reads less than 88%. Please come back if you have any worsening abdominal pain, fever or chills, nausea or vomiting, diarrhea, blood in the stool, inability hold down liquid or solids, or any new concerning complaints. Our case management rn will have you follow-up with a primary care doctor in the next few days for a reevaluation. You would be expected to have a phone call with our case management rn who will put you on the schedule. Coding Level of Care Code ED Basic Acoustic Analyst for Shila Fwjordan Exam Comprehensive
[2021-02-16 17:19] LABS: Lipase 69 U/L (13-60)
[2021-02-16 17:46] LABS: SARS Covid-2 Antigen Negative (Negative)
[2021-02-16] MEDS: morphine 4 mg/mL SDV 1 mL 2 MG IVP (19:23)
[2021-02-16 19:58] LABS: D Dimer 1.03 ug/mIFEU (0-0.59)
--- NOTE | 2021-02-16 20:00 | CTR_ITS ---
PROCEDURE INFORMATION: Exam: CTA Chest With Contrast Exam date and time: 02/16/2021 8:00 PM Age: 50 years old Clinical indication: Nausea and vomiting; Shortness of breath; Prior surgery; Surgery type: Hyst, appy, gb; Additional info: Eval for pe, elevated d-dimer, n/v TECHNIQUE: Imaging protocol: Computed tomographic angiography of the chest with contrast. 3D rendering (Not supervised by radiologist): MIP and/or 3D reconstructed images were created by the technologist. Radiation optimization: All CT scans at this facility use at least one of these dose optimization techniques: automated exposure control; mA and/or kV adjustment per patient size (includes targeted exams where dose is matched to clinical indication); or iterative reconstruction. Contrast material: OMNI 350; Contrast volume: 95 ml; Contrast route: INTRAVENOUS (IV); COMPARISON: CR (CHEST, ) 01/21/2021 4:50 PM RADIATION DOSE METRICS: Total DLP (mGy-cm): 1535.6 FINDINGS: Limitations: Due to extensive respiratory motion artifact, evaluation for pulmonary embolism within the segmental/subsegmental pulmonary arterial branches is limited. Pulmonary arteries: No evidence of pulmonary emboli. Aorta: Unremarkable. No aortic aneurysm. No aortic dissection. Lungs: Scattered small peripheral ground-glass opacities within both lungs. No masses. Pleural spaces: Unremarkable. No pneumothorax. No pleural effusion. Heart: Unremarkable. No cardiomegaly. No pericardial effusion. Lymph nodes: Unremarkable. No enlarged lymph nodes. Bones/joints: No acute fracture. Soft tissues: Unremarkable. PROCEDURE INFORMATION: Exam: CT Abdomen And Pelvis With Contrast Exam date and time: 02/16/2021 8:00 PM Age: 50 years old Clinical indication: Nausea and vomiting; Shortness of breath; Prior surgery; Surgery type: Hyst, appy, gb; Additional info: Eval for pe, elevated d-dimer, n/v TECHNIQUE: Imaging protocol: Computed tomography of the abdomen and pelvis with contrast. Radiation optimization: All CT scans at this facility use at least one of these dose optimization techniques: automated exposure control; mA and/or kV adjustment per patient size (includes targeted exams where dose is matched to clinical indication); or iterative reconstruction. Contrast material: OMNI 350; Contrast volume: 95 ml; Contrast route: INTRAVENOUS (IV); COMPARISON: CR (CHEST, ) 01/21/2021 4:50 PM RADIATION DOSE METRICS: Total DLP (mGy-cm): 1535.6 FINDINGS: Liver: Diffuse hepatic steatosis. No mass. Gallbladder and bile ducts: Cholecystectomy. Mildly dilated common bile duct with smooth tapering up to 1.2 cm, likely secondary to reservoir effect from prior cholecystectomy. Pancreas: Normal. No ductal dilation. Spleen: Normal. No splenomegaly. Adrenal glands: Normal. No mass. Kidneys and ureters: Normal. No hydronephrosis. Stomach and bowel: No obstruction. No mucosal thickening. Sigmoidectomy with anastomotic sutures noted. Appendix: Appendectomy. Intraperitoneal space: Unremarkable. No free air. No significant fluid collection. Vasculature: Unremarkable. No abdominal aortic aneurysm. Lymph nodes: Unremarkable. No enlarged lymph nodes. Urinary bladder: Under distended, grossly unremarkable. Reproductive: Hysterectomy. Bones/joints: No acute fracture. Soft tissues: Unremarkable. CT/CT angio chest w abd pel w con IMPRESSION: 1. No evidence of pulmonary embolism within the limitations of the examination described in the body of the report. 2. Scattered small peripheral ground-glass opacities within both lungs suspicious for multifocal infection, including COVID pneumonia. IMPRESSION: 1. No acute findings. 2. Diffuse hepatic steatosis.
[2021-02-16 20:05] LABS: Protein Urine Trace (Negative); Specific Gravity, Urine 1.015 (1.005-1.030); Urine Appearance Cloudy (CLEAR); Urine Color Dark Yellow (Yellow); pH Urine 5 (5-7)
[2021-02-16 20:06] LABS: Add Urine Microscopic? YES; Bilirubin Urine Neg (Negative); Blood Urine Neg (Negative); Glucose Urine UA Norm (Normal); Ketones Urine 2+ (Negative); Leukocyte Esterase Urine Negative (Negative); Nitrate Urine Positive (Negative); Urobilinogen Urine Norm (Negative)
[2021-02-16 20:07] LABS: Add Urine Culture? Yes; Bacteria Urine 3+ /hpf; Squamous Epithelial Cell Urine 0-4 /hpf (0-5); WBC Urine 0-4 /hpf (0-5)
[2021-02-16] MEDS: iohexol 350 mg/mL 100 mL Btl IV (20:22)
[2021-02-16 20:47] VITALS: BP 125/75; PULSE 77; RESP 26; O2SAT 99
[2021-02-16 21:00] VITALS: BP 124/86; PULSE 92; O2SAT 92
[2021-02-16 21:24] LABS: Amphetamines Screen Urine Negative (Negative); Barbiturates Screen Urine Negative (Negative); Benzodiazepines Screen Urine Negative (Negative); Cocaine Screen Urine Negative (Negative); Opiate Screen Urine Negative (Negative); PCP Screen Urine Negative (Negative); THC Screen Urine Positive (Negative)
[2021-02-16 21:36] VITALS: BP 124/88; PULSE 91; O2SAT 99
[2021-02-16 21:48] VITALS: BP 122/87; PULSE 87; RESP 12; TEMP 36.7; O2SAT 98
--- NOTE | 2021-02-17 10:14 | DCPLANNER ---
Addendum entered by Ana Maria Amaya 02/17/21 10:40: Patient called porter sample case back, stating that she has a primary care physician, and she will make a follow up appointment. Original Note: animal shelter manager had message to speak with patient about getting established with a primary care physician. animal shelter manager called phone number [phone], unable to speak with patient at this time, a voicemail was left for patient to return employment case manager phone call.
== END 2021-02-16 19:48 | disposition home or self-care (01) ==
PROVIDERS: Physician Assistant; Emergency Provider Emergency Medicine
DX: R19.7 Diarrhea, unspecified (principal); R10.9 Unspecified abdominal pain; R11.2 Nausea with vomiting, unspecified; R05.9 Cough, unspecified; F17.210 Nicotine dependence, cigarettes, uncomplicated
CPT/HCPCS: 36415; 71045; 71275; 74177; 80053; 80306; 80307; 81001; 83690; 85025; 85378; 87077; 87086; 87186; 87426; 96361; 96374; 96375; 96376; 99284; J2270; J2405; J7030; Q9967

== ENCOUNTER 2021-03-01 09:19 | Outpatient (CLI) | payer MEDICAID, SELFPAY | END 2021-03-01 09:20 | disposition home or self-care (01) | LOC: WOUND 09:20 | PROVIDERS: Visit Provider Emergency Medicine | DX: I96 Gangrene, not elsewhere classified (principal); L98.412 Non-pressure chronic ulcer of buttock with fat layer exposed; F17.210 Nicotine dependence, cigarettes, uncomplicated | CPT/HCPCS: 11042; 87070; 87176; 87205; 99213 ==

== ENCOUNTER 2021-03-08 10:23 | Outpatient (CLI) | payer MEDICAID, SELFPAY | END 2021-03-08 10:24 | disposition home or self-care (01) | LOC: WOUND 10:24 | PROVIDERS: Visit Provider Emergency Medicine | DX: L98.412 Non-pressure chronic ulcer of buttock with fat layer exposed (principal); F17.210 Nicotine dependence, cigarettes, uncomplicated | CPT/HCPCS: 11042; 99212 ==

== ENCOUNTER 2021-04-30 09:16 | Emergency (ER) | payer MEDICAID, SELFPAY ==
[2021-04-30 09:25] VITALS: BP 180/114; PULSE 100; RESP 28; TEMP 36.6; O2SAT 100; BMI 32.1
--- NOTE | 2021-04-30 09:52 | XRR_ITS ---
PROCEDURE INFORMATION: Exam: XR Left Knee Exam date and time: 04/30/2021 9:06 AM Age: 50 years old Clinical indication: Pain; Knee; Left; Additional info: [place] a pop, has pain TECHNIQUE: Imaging protocol: XR Left knee. Views: 3 views. COMPARISON: No relevant prior studies available. FINDINGS: Bones/joints: Normal. Soft tissues: Normal. XR/XR knee LT 3V* [id number] IMPRESSION: No acute findings.
--- NOTE | 2021-04-30 09:53 | W.ED.LOWEXIN ---
HPI - Extremity Injury (Lower) General: Chief Complaint: Extremity Injury, Lower Stated Complaint: Pt says her knee snapped in alot of pain Time Seen by Provider: 04/30/21 09:26 History of Present Illness: Patient presents here with knee pain. Patient said she was getting up from her chair and when she went to stand up her dog pushed on her leg and she twisted and felt a pop and heard a pop in her left knee. Said she has had pain since then. She was able to get up and ambulate by kind of hopping over and putting limited weight on her foot. She complains of a severely hurting. Review of Systems Const: Denies: fever(s), chills or body aches Eyes: Denies: eye discomfort ENMT: Denies: throat pain Card: Denies: chest pain Resp: Denies: dyspnea GI: Denies: abdominal pain, nausea or vomiting Musc: Reports: joint pain (Left knee pain since this morning when she heard a pop) Skin/Breast: Denies: rash Neuro: Denies: headache(s) Psych: Denies: depression or suicidal ideation PFSH ED PFSH: Medical History (Updated 02/24/21 @ 00:01 by ) Alcoholism Anemia Carpal tunnel syndrome Chronic back pain Chronic pancreatitis Cirrhosis Enteritis GERD (gastroesophageal reflux disease) H. pylori infection Hepatitis A Sciatica Surgical History H/O rotator cuff surgery H/O: hysterectomy History of appendectomy History of cholecystectomy Family History Denies family history of Diabetes CAD (coronary artery disease) Dementia Social History Smoking and tobacco status: current every day smoker Alcohol intake: current Desire information about alcohol rehabilitation?: No Counseling given: Yes Last alcohol use date: 02/15/19 Female Reproductive History: Date of last menstrual period: 05/06/20 Physical Exam Const: COMMON NORMALS: no acute distress, patient oriented x3 and alert HENMT: COMMON NORMALS: normocephalic and external ears normal HEAD & SCALP: normocephalic EXTERNAL EAR: Yes external ears normal Eye: COMMON NORMALS: EOMs intact bilaterally Neck/C-Spine: COMMON NORMALS: no JVD Resp: COMMON NORMALS: normal respiratory effort and No use of accessory muscles Cardio: COMMON NORMALS: no JVD GI: INSPECTION: Yes normal to inspection Extremity: LEFT LOWER EXTREMITY: Yes knee joint (Patient has tenderness to medial aspect. No swelling) Left knee: Yes ROM (Does not want to move due to pain.) and Yes neurovascular exam (Skin warm pink and dry) Neuro: COMMON NORMALS: patient oriented x3 SENSORIUM/ORIENTATION: Yes alert Psych: COMMON NORMALS: mental status grossly normal Skin: COMMON NORMALS: no rashes or lesions noted GENERAL SKIN EXAM: no rashes or lesions noted Course Vital Signs: Vital signs: Vital Signs Temperature 97.8 F 04/30/21 09:25 Pulse Rate 100 04/30/21 09:25 Respiratory Rate 28 H 04/30/21 09:25 Blood Pressure 180/114 04/30/21 09:25 Pulse Oximetry 100 04/30/21 09:25 MDM - Extremity Injury (Lower) Medical Decision Making Patient presents with acute knee pain. Radiology studies were negative Omari. No swelling. Patient does have limited range of motion due to pain. Knee immobilizer and crutches were provided and pain prescription patient to follow-up primary care provider. Lab Data Radiology Impressions Knee X-Ray 04/30/21 09:52 IMPRESSION: No acute findings. Discharge Plan Discharge Patient Disposition: Home Condition: Stable Prescriptions: New tramadol 50 mg tablet 100 mg PO TID PRN (Reason: pain) Qty: 14 0RF Voltaren Arthritis Pain 1 % gel 4 g topical QID Qty: 100 0RF No Action Combivent Respimat 20-100 mcg/actuation mist 1 puff INHALATION QID PRN (Reason: Bronchospasm) 0RF hydrocodone-acetaminophen 5-325 mg tablet 1 tab PO Q8H PRN (Reason: pain) Qty: 7 0RF hydrocodone-acetaminophen 5-325 mg tablet 1 tab PO Q6H PRN (Reason: pain) Qty: 10 0RF tizanidine 4 mg capsule 4 mg PO Q6H PRN (Reason: muscle spasticity) Qty: 20 0RF Rx Instructions: do not exceed 3 doses per 24 hrs omeprazole 40 mg Capsule,Delayed Release(Dr/Ec) 40 mg PO QAM 0RF Tylenol Ex Str Rapid Release 500 mg Tablet 1,000 mg PO Q4H PRN (Reason: Pain) 0RF nitroglycerin 0.4 mg tablet, sublingual 0.4 mg sublingual Q5M PRN (Reason: Chest Pain) 0RF ProAir HFA 90 mcg/actuation HFA aerosol inhaler 2 puff INHALATION Q4H PRN (Reason: Shortness Of Breath) 0RF Discharge Orders: Discharge ED (Routine); Ordered 04/30/21 Ordered By: Ozzie Leonardo Discharge Diet: Usual diet Discharge Activity: Increase activity as tolerated and Use walker/crutches as instructed Patient Instructions: Knee Sprain (ED), Crutch Instructions (ED) Activity Restrictions/Additional Instructions: Follow-up with medical provider as directed. Take medications as prescribed. Return to the ER or your medical provider if condition worsens. Please read and understand discharge instructions. If any questions ask please. Coding Level of Care Code ED Ticket Collector Or Usher for Shila Fwd Exam Comprehensive
[2021-04-30] MEDS: HYDROcodone-acetaminophen 7.5-325 mg Tablet 1 TAB PO (10:00)
[2021-04-30] MEDS: ondansetron 2 mg/ML SDV 2 mL 4 MG IVP (10:00)
== END 2021-04-30 11:39 | disposition home or self-care (01) ==
PROVIDERS: Emergency Provider Nurse Practitioner Family
DX: M25.562 Pain in left knee (principal); F17.210 Nicotine dependence, cigarettes, uncomplicated
CPT/HCPCS: 73562; 96374; 99283; E0114; J2405

== ENCOUNTER 2021-06-01 14:09 | Emergency (ER) | payer MEDICAID, SELFPAY ==
--- NOTE | 2021-06-01 14:17 | ED_ITS ---
Documented by User: Robbin Brown DO 06/06/21 10:21 HPI - Chest Pain General: Chief Complaint: Arrhythmia/Palpitations Stated Complaint: chest pain Time Seen by Provider: 06/01/21 14:17 Source: patient Mode of arrival: ambulatory Limitations: no limitations History of Present Illness: 50-year-old female presents to the emergency room with complaints of palpitations rapid heart rate and chest discomfort that began around 7 AM today. On arrival her heart rates in the 140s complaining of nausea and vomiting for last couple days. Patient admits to drinking large volumes of heavy liquor on a daily basis half of 1/5 of hard liquor daily. She has no known history of stroke diabetes cancer coronary artery disease. She has not previously had pulmonary emboli. On arrival she is tachycardic with normal oxygen saturations complaining of chest pain. MD complaint: chest pain Onset (ago): hour(s) Timing of current episode: episodic Prior episodes: No Onset: during rest Pain location: left chest Pain radiation: none Severity: moderate Quality: shooting Relieving factors: nothing Exacerbating factors: nothing Associated symptoms: Deny abdominal pain, dyspnea, fever(s), nausea or vomiting Review of Systems Const: Denies: fever(s), chills, body aches, change in appetite, fatigue or malaise ENMT: Denies: throat pain, ear or mastoid pain, nasal discharge or nasal congestion Card: Denies: chest pain, edema, dyspnea on exertion or orthopnea Resp: Denies: dyspnea, productive cough or non-productive cough GI: Denies: abdominal pain, nausea, vomiting, hematemesis, coffee ground emesis, diarrhea, constipation, bloating, hematochezia or melena : Denies: flank pain, difficulty voiding, dysuria, urinary frequency or urinary urgency Skin/Breast: Denies: rash or pruritus PFSH ED PFSH: Medical History Alcoholism Anemia Carpal tunnel syndrome Chronic back pain Chronic pancreatitis Cirrhosis Enteritis GERD (gastroesophageal reflux disease) H. pylori infection Hepatitis A Sciatica Surgical History H/O rotator cuff surgery H/O: hysterectomy History of appendectomy History of cholecystectomy Family History Denies family history of Diabetes CAD (coronary artery disease) Dementia Social History Smoking and tobacco status: current every day smoker Alcohol intake: current Desire information about alcohol rehabilitation?: No Counseling given: Yes Last alcohol use date: 02/15/19 Female Reproductive History: Date of last menstrual period: 05/06/20 Physical Exam Const: GENERAL APPEARANCE: cooperative and comfortable ORIENTATION/CONSCIOUSNESS: Yes awake, Yes oriented to person, Yes oriented to place and Yes oriented to time HENMT: COMMON NORMALS: normocephalic, atraumatic and hearing grossly normal bilaterally HEAD & SCALP: normocephalic and atraumatic Neck/C-Spine: COMMON NORMALS: no JVD Resp: COMMON NORMALS: normal respiratory effort, No retractions, No use of accessory muscles and clear to auscultation bilaterally AUSCULTATION: clear to auscultation bilaterally Cardio: COMMON NORMALS: no JVD, regular rhythm and No murmurs present (Cardio) RATE: tachycardic RHYTHM: regular rhythm GI: COMMON NORMALS: Soft to palpation and No hepatosplenomegaly present AUSCULTATION: Yes normoactive bowel sounds PALPATION: Yes Soft to palpation, No Tenderness to palpation present (GI), No Guarding due to palpation present (GI) and Yes No hepatosplenomegaly present Extremity: COMMON NORMALS: normal to inspection, capillary refill normal, no clubbing, cyanosis or edema, no calf tenderness and no pedal edema Neuro: SENSORIUM/ORIENTATION: Yes oriented to person, Yes oriented to place and Yes oriented to time Skin: COMMON NORMALS: no rashes or lesions noted GENERAL SKIN EXAM: no rashes or lesions noted Course Vital Signs: Vital signs: Vital Signs Temperature 97.9 F 06/01/21 14:20 Pulse Rate 99 06/01/21 18:17 Respiratory Rate 18 06/01/21 16:42 Blood Pressure 109/86 06/01/21 18:17 Pulse Oximetry 100 06/01/21 18:17 MDM - Chest Pain Medical Decision Making Care signed out to Dr. Valdes at change of shift. See final notes for diagnosis and disposition. Patient presents here with some palpitations her heart rates much improved could be some alcohol withdrawal but no signs of severe withdrawal we will place her on Librium I informed her not to drink if she takes the Librium she is return if worsening she understands agrees to plan. Medical Records I reviewed the patient's medical records. Lab Data I reviewed the patient's lab results. : 06/01/21 14:40 06/01/21 14:40 Radiology Impressions Chest X-Ray 06/01/21 14:18 IMPRESSION: 1. Mild pulmonary hyperexpansion with no pneumonia. 2. Normal vasculature. Chest/Abdomen/Pelvis CT 06/01/21 15:51 IMPRESSION: 1. No evidence for pulmonary embolus or other acute finding. 2. 5 mm noncalcified right upper lobe nodule.For patients at low risk (minimal or absent history of smoking and of other known risk factors), no routine follow-up is indicated. For patients at high risk (history of smoking or of other known risk factors), consider optional CT Chest at 12 IMPRESSION: 1. No acute finding in the abdomen or pelvis. 2. Trace pelvic ascites. Laboratory Results WBC 6.4 10^3/uL (4.0-10.0) 06/01/21 14:40 RBC 3.09 10^6/uL (4.1-5.3) L 06/01/21 14:40 Hgb 11.6 g/dL (11.5-15.3) 06/01/21 14:40 Hct 32.9 % (37.0-47.0) L 06/01/21 14:40 MCV 106.5 fl (81-99) H 06/01/21 14:40 MCH 37.5 pg (28.0-34.0) H 06/01/21 14:40 MCHC 35.3 g/dL (30.0-36.0) 06/01/21 14:40 RDW 15.8 % (12.1-15.1) H 06/01/21 14:40 Plt Count 117 10^3/cmm (130-400) L 06/01/21 14:40 MPV 10.8 fL (7.4-10.4) H 06/01/21 14:40 Neut % (Auto) 68.8 % 06/01/21 14:40 Lymph % (Auto) 23.1 % 06/01/21 14:40 [place] % (Auto) 5.5 % 06/01/21 14:40 Eos % (Auto) 1.6 % 06/01/21 14:40 Baso % (Auto) 0.8 % 06/01/21 14:40 Neut # (Auto) 4.42 10^3/uL (1.8-7.7) 06/01/21 14:40 Lymph # (Auto) 1.5 10^3/uL (0.8-4.8) 06/01/21 14:40 [place] # (Auto) 0.4 10^3/uL (0.2-0.9) 06/01/21 14:40 Eos # (Auto) 0.1 10^3/uL (0.0-0.8) 06/01/21 14:40 Baso # (Auto) 0.1 10^3/uL (0.0-0.1) 06/01/21 14:40 Nucleated RBC % (auto) 0.3 % 06/01/21 14:40 Nucleated RBCs # 0.0 /100WBC 06/01/21 14:40 PT 13.40 SECONDS (12.1-14.9) 06/01/21 14:50 INR 0.99 (0.8-1.2) 06/01/21 14:50 APTT 32.1 SECONDS (23.9-36.7) 06/01/21 14:50 Sodium 137 mmol/L (136-145) 06/01/21 14:40 Potassium 3.6 mmol/L (3.5-5.1) 06/01/21 14:40 Chloride 96 mmol/L (98-107) L 06/01/21 14:40 Carbon Dioxide 16 mmol/L (22-29) L 06/01/21 14:40 Anion Gap 28.6 (5-19) H 06/01/21 14:40 BUN 10 mg/dL (6-20) 06/01/21 14:40 Creatinine 0.6 mg/dL (0.5-0.9) 06/01/21 14:40 GFR Calculation 105.0 mL/min (90-130) 06/01/21 14:40 Glucose 78 mg/dL (65-115) 06/01/21 14:40 Calculated Osmolality 282 mOsm/kg (285-295) L 06/01/21 14:40 Calcium 10.1 mg/dL (8.5-10.5) 06/01/21 14:40 Total Bilirubin 1.0 mg/dL (0.15-1.2) 06/01/21 14:40 AST 96 U/L (0-32) H 06/01/21 14:40 ALT 53 U/L (0-33) H 06/01/21 14:40 Alkaline Phosphatase 190 IU/L (35-105) H 06/01/21 14:40 Ammonia 32 umol/L (11-51) 06/01/21 14:40 Troponin T Baseline 7 ng/L (0-10) 06/01/21 14:40 Troponin T 120 Minute 6.36 ng/L (0-10) 06/01/21 16:54 Delta Troponin T 0.64 ABS# (0-10) 06/01/21 16:54 Total Protein 8.9 g/dL (6.6-8.7) H 06/01/21 14:40 Albumin 4.9 g/dL (3.5-5.2) 06/01/21 14:40 Globulin 4.0 g/dL (1.3-4.6) 06/01/21 14:40 Lipase 110 U/L (13-60) H 06/01/21 14:40 Urine Color [place] (Yellow) 06/01/21 Unknown Urine Appearance Clear (CLEAR) 06/01/21 Unknown Urine pH 6 (5-7) 06/01/21 Unknown Ur Specific [place] 1.020 (1.005-1.030) 06/01/21 Unknown Urine Protein 1+ (Negative) H 06/01/21 Unknown Urine Glucose (UA) Norm (Normal) 06/01/21 Unknown Urine Ketones 2+ (Negative) H 06/01/21 Unknown Urine Blood 2+ (Negative) H 06/01/21 Unknown Urine Nitrate Negative (Negative) 06/01/21 Unknown Urine Bilirubin 2+ (Negative) H 06/01/21 Unknown Urine Urobilinogen 4 mg/dL (Negative) H 06/01/21 Unknown Ur Leukocyte Esterase Negative (Negative) 06/01/21 Unknown Urine RBC 0-4 /hpf (0-2) H 06/01/21 Unknown Urine WBC Rare /hpf (0-5) 06/01/21 Unknown Ur Squamous Epith Cells 0-4 /hpf (0-5) H 06/01/21 Unknown Amorphous Sediment Not Reportable 06/01/21 Unknown Urine Bacteria None /hpf (NONE) 06/01/21 Unknown Urine Opiates Screen Negative ng/mL (Negative) 06/01/21 Unknown Ur Barbiturates Screen Negative ng/mL (Negative) 06/01/21 Unknown Ur Phencyclidine Scrn Negative ng/mL (Negative) 06/01/21 Unknown Ur Amphetamines Screen Negative ng/mL (Negative) 06/01/21 Unknown U Benzodiazepines Scrn Negative ng/mL (Negative) 06/01/21 Unknown Urine Cocaine Screen Negative ng/mL (Negative) 06/01/21 Unknown U Marijuana (THC) Screen Negative ng/mL (Negative) 06/01/21 Unknown Ethyl Alcohol < 10 mg/dL (0-10) 06/01/21 14:40 Discharge Plan Discharge Patient Disposition: Home Clinical Impression: Palpitations, Alcohol use disorder, Alcohol withdrawal Condition: Stable Prescriptions: New chlordiazepoxide HCl 10 mg capsule 10 mg PO Q6H PRN (Reason: withdrawal symptoms) Qty: 30 0RF No Action Combivent Respimat 20-100 mcg/actuation mist 1 puff INHALATION Q6H PRN (Reason: Bronchospasm) 0RF omeprazole 40 mg Capsule,Delayed Release(Dr/Ec) 40 mg PO BID 0RF acetaminophen [Tylenol Ex Str Rapid Release] 500 mg Tablet 1,000 mg PO Q4H PRN (Reason: Pain) 0RF albuterol sulfate [ProAir HFA] 90 mcg/actuation HFA aerosol inhaler 2 puff INHALATION Q4H PRN (Reason: Shortness Of Breath) 0RF ondansetron HCl 8 mg tablet 8 mg PO Q8H PRN (Reason: Nausea And Vomiting) 0RF Aspir-81 81 mg Tablet,Delayed Release (Dr/Ec) 81 mg PO DAILY 0RF metoclopramide HCl 5 mg tablet 5 mg PO DAILY PRN (Reason: Nausea) 0RF Nitrostat 0.4 mg Tablet, Sublingual 0.4 mg SUBLINGUAL Q5M PRN (Reason: Chest Pain) 0RF Rx Instructions: do not exceed 3 doses per episode Discharge Orders: Discharge ED (Routine); Ordered 06/01/21 Ordered By: Bruce Valdes Discharge Diet: Advance as tolerated Discharge Activity: Resume usual activity Patient Instructions: Alcohol Withdrawal (ED) Coding Level of Care Code ED Electronic Funds Transfer Coordinator for Chg Fwd Exam Comprehensive Documented by User: Bruce Valdes MD 06/01/21 18:27 HPI - Chest Pain General: Chief Complaint: Arrhythmia/Palpitations Stated Complaint: chest pain Time Seen by Provider: 06/01/21 14:17 PFSH ED PFSH: Medical History Alcoholism Anemia Carpal tunnel syndrome Chronic back pain Chronic pancreatitis Cirrhosis Enteritis GERD (gastroesophageal reflux disease) H. pylori infection Hepatitis A Sciatica Surgical History H/O rotator cuff surgery H/O: hysterectomy History of appendectomy History of cholecystectomy Family History Denies family history of Diabetes CAD (coronary artery disease) Dementia Social History Smoking and tobacco status: current every day smoker Alcohol intake: current Desire information about alcohol rehabilitation?: No Counseling given: Yes Last alcohol use date: 02/15/19 Course Vital Signs: Vital signs: Vital Signs Temperature 97.9 F 06/01/21 14:20 Pulse Rate 99 06/01/21 18:17 Respiratory Rate 18 06/01/21 16:42 Blood Pressure 109/86 06/01/21 18:17 Pulse Oximetry 100 06/01/21 18:17 MDM - Chest Pain Medical Decision Making Patient presents here with some palpitations her heart rates much improved could be some alcohol withdrawal but no signs of severe withdrawal we will place her on Librium I informed her not to drink if she takes the Librium she is return if worsening she understands agrees to plan. Lab Data : 06/01/21 14:40 06/01/21 14:40 Radiology Impressions Chest X-Ray 06/01/21 14:18 IMPRESSION: 1. Mild pulmonary hyperexpansion with no pneumonia. 2. Normal vasculature. Chest/Abdomen/Pelvis CT 06/01/21 15:51 IMPRESSION: 1. No evidence for pulmonary embolus or other acute finding. 2. 5 mm noncalcified right upper lobe nodule.For patients at low risk (minimal or absent history of smoking and of other known risk factors), no routine follow-up is indicated. For patients at high risk (history of smoking or of other known risk factors), consider optional CT Chest at 12 IMPRESSION: 1. No acute finding in the abdomen or pelvis. 2. Trace pelvic ascites. Laboratory Results WBC 6.4 10^3/uL (4.0-10.0) 06/01/21 14:40 RBC 3.09 10^6/uL (4.1-5.3) L 06/01/21 14:40 Hgb 11.6 g/dL (11.5-15.3) 06/01/21 14:40 Hct 32.9 % (37.0-47.0) L 06/01/21 14:40 MCV 106.5 fl (81-99) H 06/01/21 14:40 MCH 37.5 pg (28.0-34.0) H 06/01/21 14:40 MCHC 35.3 g/dL (30.0-36.0) 06/01/21 14:40 RDW 15.8 % (12.1-15.1) H 06/01/21 14:40 Plt Count 117 10^3/cmm (130-400) L 06/01/21 14:40 MPV 10.8 fL (7.4-10.4) H 06/01/21 14:40 Neut % (Auto) 68.8 % 06/01/21 14:40 Lymph % (Auto) 23.1 % 06/01/21 14:40 [place] % (Auto) 5.5 % 06/01/21 14:40 Eos % (Auto) 1.6 % 06/01/21 14:40 Baso % (Auto) 0.8 % 06/01/21 14:40 Neut # (Auto) 4.42 10^3/uL (1.8-7.7) 06/01/21 14:40 Lymph # (Auto) 1.5 10^3/uL (0.8-4.8) 06/01/21 14:40 [place] # (Auto) 0.4 10^3/uL (0.2-0.9) 06/01/21 14:40 Eos # (Auto) 0.1 10^3/uL (0.0-0.8) 06/01/21 14:40 Baso # (Auto) 0.1 10^3/uL (0.0-0.1) 06/01/21 14:40 Nucleated RBC % (auto) 0.3 % 06/01/21 14:40 Nucleated RBCs # 0.0 /100WBC 06/01/21 14:40 PT 13.40 SECONDS (12.1-14.9) 06/01/21 14:50 INR 0.99 (0.8-1.2) 06/01/21 14:50 APTT 32.1 SECONDS (23.9-36.7) 06/01/21 14:50 Sodium 137 mmol/L (136-145) 06/01/21 14:40 Potassium 3.6 mmol/L (3.5-5.1) 06/01/21 14:40 Chloride 96 mmol/L (98-107) L 06/01/21 14:40 Carbon Dioxide 16 mmol/L (22-29) L 06/01/21 14:40 Anion Gap 28.6 (5-19) H 06/01/21 14:40 BUN 10 mg/dL (6-20) 06/01/21 14:40 Creatinine 0.6 mg/dL (0.5-0.9) 06/01/21 14:40 GFR Calculation 105.0 mL/min (90-130) 06/01/21 14:40 Glucose 78 mg/dL (65-115) 06/01/21 14:40 Calculated Osmolality 282 mOsm/kg (285-295) L 06/01/21 14:40 Calcium 10.1 mg/dL (8.5-10.5) 06/01/21 14:40 Total Bilirubin 1.0 mg/dL (0.15-1.2) 06/01/21 14:40 AST 96 U/L (0-32) H 06/01/21 14:40 ALT 53 U/L (0-33) H 06/01/21 14:40 Alkaline Phosphatase 190 IU/L (35-105) H 06/01/21 14:40 Ammonia 32 umol/L (11-51) 06/01/21 14:40 Troponin T Baseline 7 ng/L (0-10) 06/01/21 14:40 Troponin T 120 Minute 6.36 ng/L (0-10) 06/01/21 16:54 Delta Troponin T 0.64 ABS# (0-10) 06/01/21 16:54 Total Protein 8.9 g/dL (6.6-8.7) H 06/01/21 14:40 Albumin 4.9 g/dL (3.5-5.2) 06/01/21 14:40 Globulin 4.0 g/dL (1.3-4.6) 06/01/21 14:40 Lipase 110 U/L (13-60) H 06/01/21 14:40 Urine Color [place] (Yellow) 06/01/21 Unknown Urine Appearance Clear (CLEAR) 06/01/21 Unknown Urine pH 6 (5-7) 06/01/21 Unknown Ur Specific [place] 1.020 (1.005-1.030) 06/01/21 Unknown Urine Protein 1+ (Negative) H 06/01/21 Unknown Urine Glucose (UA) Norm (Normal) 06/01/21 Unknown Urine Ketones 2+ (Negative) H 06/01/21 Unknown Urine Blood 2+ (Negative) H 06/01/21 Unknown Urine Nitrate Negative (Negative) 06/01/21 Unknown Urine Bilirubin 2+ (Negative) H 06/01/21 Unknown Urine Urobilinogen 4 mg/dL (Negative) H 06/01/21 Unknown Ur Leukocyte Esterase Negative (Negative) 06/01/21 Unknown Urine RBC 0-4 /hpf (0-2) H 06/01/21 Unknown Urine WBC Rare /hpf (0-5) 06/01/21 Unknown Ur Squamous Epith Cells 0-4 /hpf (0-5) H 06/01/21 Unknown Amorphous Sediment Not Reportable 06/01/21 Unknown Urine Bacteria None /hpf (NONE) 06/01/21 Unknown Urine Opiates Screen Negative ng/mL (Negative) 06/01/21 Unknown Ur Barbiturates Screen Negative ng/mL (Negative) 06/01/21 Unknown Ur Phencyclidine Scrn Negative ng/mL (Negative) 06/01/21 Unknown Ur Amphetamines Screen Negative ng/mL (Negative) 06/01/21 Unknown U Benzodiazepines Scrn Negative ng/mL (Negative) 06/01/21 Unknown Urine Cocaine Screen Negative ng/mL (Negative) 06/01/21 Unknown U Marijuana (THC) Screen Negative ng/mL (Negative) 06/01/21 Unknown Ethyl Alcohol < 10 mg/dL (0-10) 06/01/21 14:40 EKG Data EKG 1: I personally reviewed and interpreted this EKG as follows: EKG interpretation date: 06/01/21 EKG interpretation time: 17:05 Interpretation: nsr hr [address] or t wave abnormalities qrs 85 qtc 407 Discharge Plan Discharge Patient Disposition: Home Clinical Impression: Palpitations, Alcohol use disorder, Alcohol withdrawal Condition: Stable Prescriptions: New chlordiazepoxide HCl 10 mg capsule 10 mg PO Q6H PRN (Reason: withdrawal symptoms) Qty: 30 0RF No Action Combivent Respimat 20-100 mcg/actuation mist 1 puff INHALATION Q6H PRN (Reason: Bronchospasm) 0RF omeprazole 40 mg Capsule,Delayed Release(Dr/Ec) 40 mg PO BID 0RF acetaminophen [Tylenol Ex Str Rapid Release] 500 mg Tablet 1,000 mg PO Q4H PRN (Reason: Pain) 0RF albuterol sulfate [ProAir HFA] 90 mcg/actuation HFA aerosol inhaler 2 puff INHALATION Q4H PRN (Reason: Shortness Of Breath) 0RF ondansetron HCl 8 mg tablet 8 mg PO Q8H PRN (Reason: Nausea And Vomiting) 0RF Aspir-81 81 mg Tablet,Delayed Release (Dr/Ec) 81 mg PO DAILY 0RF metoclopramide HCl 5 mg tablet 5 mg PO DAILY PRN (Reason: Nausea) 0RF Nitrostat 0.4 mg Tablet, Sublingual 0.4 mg SUBLINGUAL Q5M PRN (Reason: Chest Pain) 0RF Rx Instructions: do not exceed 3 doses per episode Discharge Orders: Discharge ED (Routine); Ordered 06/01/21 Ordered By: Bruce Valdes Discharge Diet: Advance as tolerated Discharge Activity: Resume usual activity Patient Instructions: Alcohol Withdrawal (ED) Coding Level of Care Code ED Electronic Funds Transfer Coordinator for Chg Fwd Exam Comprehensive
--- NOTE | 2021-06-01 14:18 | XR_ITS ---
WS: [id number] PORTABLE CHEST HISTORY: dyspnea/cough COMPARISON: 02/16/2021 Lungs are mildly hyperexpanded. Patient is also rotated to the RIGHT. Lungs are clear. No effusion. N ormal vascularity. No pleural effusion or pneumothorax. Cardiac size: Normal. Mediastinum/Aorta: Normal mediastinum. Prior healed rib fractures in the posterior lateral RIGHT thorax. XR/XR chest 1V portable [id number] IMPRESSION: 1. Mild pulmonary hyperexpansion with no pneumonia. 2. Normal vasculature.
--- NOTE | 2021-06-01 14:19 | ECG_ITS ---
[facility] Test Date: 2021-06-01 Pat Name: Melissa Portillo Department: Room: Gender: Female Community Living Specialist: : 1970 Requested By: Robbin Elizondo Order Number: [id number] Liz MD: Jensen Kidd M.D. Measurements Intervals [place] Rate: 96 P: 56 [place]: 162 QRS: 57 QRSD: 85 T: 40 QT: 353 QTc: 448 Interpretive Statements SINUS RHYTHM POSSIBLE LEFT ATRIAL ENLARGEMENT [-0.1mV P-WAVE IN V1/V2] POSSIBLE LEFT VENTRICULAR HYPERTROPHY [VOLTAGE CRITERIA PLUS LAE OR QRS WIDENING] Compared to ECG 06/01/2021 16:50:38 No significant changes Electronically Signed On 06-01-2021 22:13:45 CDT by Jensen Kidd M.D. [id number]
[2021-06-01 14:20] VITALS: BP 136/106; PULSE 143; RESP 21; TEMP 36.6; O2SAT 100; BMI 30.9
[2021-06-01] MEDS: metoprolol tartrate 1 mg/1 mL SDV 5 mL 5 MG IVP (14:31)
[2021-06-01 14:40] VITALS: BP 135/101; PULSE 108; O2SAT 100
--- NOTE | 2021-06-01 14:44 | PC.NURSE ---
PT placed on continuous NIBP, SpO2, and CM
[2021-06-01 14:46] LABS: Basophils # 0.1 10^3/uL (0.0-0.1); Basophils % 0.8 %; Eosinophils # 0.1 10^3/uL (0.0-0.8); Eosinophils % 1.6 %; Hematocrit 32.9 % (37.0-47.0); Hemoglobin 11.6 g/dL (11.5-15.3); Lymphocytes # 1.5 10^3/uL (0.8-4.8); Lymphocytes % 23.1 %; Mean Corpuscular HGB Conc 35.3 g/dL (30.0-36.0); Mean Corpuscular Hemoglobin 37.5 pg (28.0-34.0); Mean Corpuscular Volume 106.5 fl (81-99); Mean Platelet Volume 10.8 fL (7.4-10.4); Monocytes # 0.4 10^3/uL (0.2-0.9); Monocytes % 5.5 %; Neutrophils # 4.42 10^3/uL (1.8-7.7); Neutrophils % 68.8 %; Nucleated Red Blood Cells % 0.3 %; Platelet Count 117 10^3/cmm (130-400); Red Blood Count 3.09 10^6/uL (4.1-5.3); Red Cell Distribution Width 15.8 % (12.1-15.1); White Blood Count 6.4 10^3/uL (4.0-10.0)
[2021-06-01] MEDS: pantoprazole 40 mg SDV 80 MG IVP (15:06)
[2021-06-01] MEDS: LORazepam 2 mg/mL INJ 1 mL IVP (15:06)
[2021-06-01] MEDS: lactated ringers 1,000 ML 999 ML IV ×2 (15:06→17:13)
[2021-06-01 15:07] LABS: Ammonia 32 umol/L (11-51)
[2021-06-01 15:11] LABS: Alanine Aminotransferase 53 U/L (0-33); Albumin Level 4.9 g/dL (3.5-5.2); Alkaline Phosphatase 190 IU/L (35-105); Blood Urea Nitrogen 10 mg/dL (6-20); Calcium 10.1 mg/dL (8.5-10.5); Carbon Dioxide 16 mmol/L (22-29); Chloride 96 mmol/L (98-107); Glucose 78 mg/dL (65-115); Lipase 110 U/L (13-60); Osmolality Calculated 282 mOsm/kg (285-295); Sodium 137 mmol/L (136-145); Total Protein 8.9 g/dL (6.6-8.7)
[2021-06-01 15:12] LABS: Troponin(5th) Baseline 7 ng/L (0-10)
[2021-06-01 15:25] LABS: Alcohol Level < 10 mg/dL (0-10)
[2021-06-01 15:26] LABS: Anion Gap 28.6 (5-19); Aspartate Amino Transferase 96 U/L (0-32); Potassium 3.6 mmol/L (3.5-5.1)
[2021-06-01 15:42] LABS: INR 0.99 (0.8-1.2); Partial Thromboplastin Time 32.1 SECONDS (23.9-36.7)
--- NOTE | 2021-06-01 15:51 | CTR_ITS ---
PROCEDURE INFORMATION: Exam: CTA Chest With Contrast Exam date and time: 06/01/2021 4:22 PM Age: 50 years old Clinical indication: Abdominal pain; Chest pressure; Prior surgery; Surgery type: Gb, appy, hyst, shoulder; Additional info: Chest pain/tachycardia/and pain TECHNIQUE: Imaging protocol: Computed tomographic angiography of the chest with contrast. 3D rendering (Not supervised by radiologist): MIP and/or 3D reconstructed images were created by the technologist. Radiation optimization: All CT scans at this facility use at least one of these dose optimization techniques: automated exposure control; mA and/or kV adjustment per patient size (includes targeted exams where dose is matched to clinical indication); or iterative reconstruction. Contrast material: OMNI 350; Contrast volume: 95 ml; Contrast route: INTRAVENOUS (IV); COMPARISON: 1. CT angio chest w abd pel w con 02/16/2021 8:[address] abdomen pelvis w con* [id number] 01/21/2021 5:13 PM RADIATION DOSE METRICS: Total DLP (mGy-cm): 1538.74 FINDINGS: Pulmonary arteries: Normal. No pulmonary emboli. Aorta: Unremarkable. No aortic aneurysm. No aortic dissection. Lungs: Calcified granulomas in both lungs. 5 mm right upper lobe nodule, series 3, image 60. The lungs are otherwise clear. Pleural spaces: Unremarkable. No pneumothorax. No pleural effusion. Heart: No coronary artery calcifications. The heart size is normal. Lymph nodes: Calcified mediastinal and right hilar lymph nodes. Bones/joints: C-spine fusion hardware. Multiple Schmorl's nodes in the thoracic spine. No acute fracture. Soft tissues: Unremarkable. months. (Reference: Jonathan) References: Jonathan Trevino et al. Guidelines for Management of Incidental Pulmonary Nodules Detected on CT Images: From the Fleischner Society 2017. Radiology. 2017;284(1):228-243. PROCEDURE INFORMATION: Exam: CT Abdomen And Pelvis With Contrast Exam date and time: 06/01/2021 4:22 PM Age: 50 years old Clinical indication: Abdominal pain; Chest pressure; Prior surgery; Surgery type: Gb, appy, hyst, shoulder; Additional info: Chest pain/tachycardia/and pain TECHNIQUE: Imaging protocol: Computed tomography of the abdomen and pelvis with contrast. Radiation optimization: All CT scans at this facility use at least one of these dose optimization techniques: automated exposure control; mA and/or kV adjustment per patient size (includes targeted exams where dose is matched to clinical indication); or iterative reconstruction. Contrast material: OMNI 350; Contrast volume: 95 ml; Contrast route: INTRAVENOUS (IV); COMPARISON: 1. CT angio chest w abd pel w con 02/16/2021 8:[address] abdomen pelvis w con* [id number] 01/21/2021 5:13 PM RADIATION DOSE METRICS: Total DLP (mGy-cm): 1538.74 FINDINGS: Liver: Diffuse fatty infiltration of the liver. No focal lesion. Gallbladder and bile ducts: Cholecystectomy. Mild prominence of the extrahepatic bile ducts is consistent with reservoir effect. Pancreas: Normal. No ductal dilation. Spleen: Normal. No splenomegaly. Adrenal glands: Normal. No mass. Kidneys and ureters: Normal. No hydronephrosis. Stomach and bowel: Partial resection of the sigmoid colon with anastomosis sutures. The stomach, small bowel, and colon are otherwise unremarkable. No wall thickening or obstruction. Appendix: The appendix is absent. Intraperitoneal space: Trace pelvic ascites. No free air. Arteries: Unremarkable. No abdominal aortic aneurysm. Lymph nodes: Unremarkable. No enlarged lymph nodes. Urinary bladder: Unremarkable as visualized. Reproductive: The uterus and ovaries are absent. Bones/joints: Unremarkable. No acute fracture. Soft tissues: Unremarkable. Other findings: Anterior laparotomy scar. CT/CT angio chest w abd pel w con IMPRESSION: 1. No evidence for pulmonary embolus or other acute finding. 2. 5 mm noncalcified right upper lobe nodule.For patients at low risk (minimal or absent history of smoking and of other known risk factors), no routine follow-up is indicated. For patients at high risk (history of smoking or of other known risk factors), consider optional CT Chest at 12 IMPRESSION: 1. No acute finding in the abdomen or pelvis. 2. Trace pelvic ascites.
--- NOTE | 2021-06-01 16:19 | ECG_ITS ---
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 Measurements Intervals [place] Rate: 95 P: 54 SD: 163 QRS: 56 QRSD: 86 T: 38 QT: 357 QTc: 450 Interpretive Statements SINUS RHYTHM Compared to ECG 06/14/2020 14:11:34 Sinus tachycardia no longer present ST (T wave) deviation no longer present Electronically Signed On 06-01-2021 22:23:46 CDT by Jensen Kidd M.D. [id number]
[2021-06-01 16:42] VITALS: BP 135/91; PULSE 100; RESP 18; O2SAT 100
[2021-06-01 16:43] LABS: Amphetamines Screen Urine Negative (Negative); Barbiturates Screen Urine Negative (Negative); Benzodiazepines Screen Urine Negative (Negative); Cocaine Screen Urine Negative (Negative); Opiate Screen Urine Negative (Negative); PCP Screen Urine Negative (Negative); THC Screen Urine Negative (Negative)
[2021-06-01 16:45] LABS: Protein Urine 1+ (Negative); Urine Appearance Clear (CLEAR); Urine Color Amber (Yellow); pH Urine 6 (5-7)
[2021-06-01 16:46] LABS: Add Urine Culture? No; Add Urine Microscopic? YES; Bilirubin Urine 2+ (Negative); Blood Urine 2+ (Negative); Glucose Urine UA Norm (Normal); Ketones Urine 2+ (Negative); Leukocyte Esterase Urine Negative (Negative); Nitrate Urine Negative (Negative); RBC Urine 0-4 /hpf (0-2); Squamous Epithelial Cell Urine 0-4 /hpf (0-5); Urobilinogen Urine 4 mg/dL (Negative); WBC Urine RARE /hpf (0-5)
[2021-06-01 17:31] LABS: Troponin 5 2HR 6.36 ng/L (0-10)
[2021-06-01 18:17] VITALS: BP 109/86; PULSE 99; O2SAT 100
[2021-06-01 18:20] LABS: Troponin 5 2HR Delta 0.64 ABS# (0-10)
== END 2021-06-01 18:18 | disposition home or self-care (01) ==
PROVIDERS: Family Medicine; Emergency Provider Emergency Medicine
DX: R00.2 Palpitations (principal); F10.239 Alcohol dependence with withdrawal, unspecified; Z86.73 Personal history of transient ischemic attack (TIA), and cerebral infarction without residual deficits; E11.9 Type 2 diabetes mellitus without complications; I25.10 Atherosclerotic heart disease of native coronary artery without angina pectoris; F10.20 Alcohol dependence, uncomplicated; F17.210 Nicotine dependence, cigarettes, uncomplicated; Y90.9 Presence of alcohol in blood, level not specified; Z79.82 Long term (current) use of aspirin
CPT/HCPCS: 36415; 71045; 71275; 74177; 80053; 80306; 80307; 81001; 82140; 83690; 84484; 85025; 85610; 85730; 93005; 96361; 96374; 96375; 99284; C9113; J2060; J3490; Q9967

== ENCOUNTER 2021-07-13 16:09 | Emergency (ER) | payer MEDICAID, SELFPAY ==
[2021-07-13 16:17] VITALS: BP 157/92; PULSE 114; RESP 14; TEMP 36.4; O2SAT 97
[2021-07-13 17:02] LABS: Basophils % 0.9 %; Eosinophils # 0.1 10^3/uL (0.0-0.8); Eosinophils % 2.6 %; Hemoglobin 11.6 g/dL (11.5-15.3); Lymphocytes # 1.2 10^3/uL (0.8-4.8); Lymphocytes % 25.5 %; Mean Corpuscular HGB Conc 35.2 g/dL (30.0-36.0); Mean Corpuscular Hemoglobin 39.1 pg (28.0-34.0); Mean Corpuscular Volume 111.1 fl (81-99); Monocytes # 0.6 10^3/uL (0.2-0.9); Monocytes % 11.8 %; Neutrophils # 2.76 10^3/uL (1.8-7.7); Nucleated Red Blood Cells % 0 %; Platelet Count 179 10^3/cmm (130-400); Red Blood Count 2.97 10^6/uL (4.1-5.3); Red Cell Distribution Width 20.6 % (12.1-15.1); White Blood Count 4.7 10^3/uL (4.0-10.0)
[2021-07-13 17:51] LABS: Alanine Aminotransferase 132 U/L (0-33); Albumin Level 4.5 g/dL (3.5-5.2); Alkaline Phosphatase 297 IU/L (35-105); Anion Gap 23.2 (5-19); Aspartate Amino Transferase 321 U/L (0-32); Blood Urea Nitrogen 4 mg/dL (6-20); Calcium 9.7 mg/dL (8.5-10.5); Carbon Dioxide 21 mmol/L (22-29); Chloride 99 mmol/L (98-107); Globulin 3.7 g/dL (1.3-4.6); Glucose 95 mg/dL (65-115); Lipase 80 U/L (13-60); Osmolality Calculated 287 mOsm/kg (285-295); Potassium 3.2 mmol/L (3.5-5.1); Sodium 140 mmol/L (136-145); Total Bilirubin 2.2 mg/dL (0.15-1.2); Total Protein 8.2 g/dL (6.6-8.7)
== END 2021-07-13 18:10 | disposition left against medical advice (07) ==
PROVIDERS: Emergency Medicine; Emergency Provider Family Medicine
DX: Z53.21 Procedure and treatment not carried out due to patient leaving prior to being seen by health care provider (principal); R10.9 Unspecified abdominal pain; R25.1 Tremor, unspecified
CPT/HCPCS: 80053; 82248; 83690; 85025; 99282

== ENCOUNTER 2021-07-27 15:19 | Emergency (ER) | payer MEDICAID, SELFPAY ==
[2021-07-27] VITALS (7 sets, daily range): BP systolic 104–134; BP diastolic 57–92; PULSE 93–107; RESP 16–20; TEMP 36.6–37.4; O2SAT 94–99; BMI 31.9
[2021-07-27 16:45] LABS: Basophils # 0.1 10^3/uL (0.0-0.1); Eosinophils # 0.2 10^3/uL (0.0-0.8); Eosinophils % 3.8 %; Hematocrit 30.4 % (37.0-47.0); Hemoglobin 10.8 g/dL (11.5-15.3); Lymphocytes # 1.2 10^3/uL (0.8-4.8); Lymphocytes % 24.6 %; Mean Corpuscular HGB Conc 35.5 g/dL (30.0-36.0); Mean Corpuscular Volume 112.6 fl (81-99); Mean Platelet Volume 11.3 fL (7.4-10.4); Monocytes # 0.4 10^3/uL (0.2-0.9); Monocytes % 8.4 %; Neutrophils # 3.09 10^3/uL (1.8-7.7); Neutrophils % 61.8 %; Nucleated Red Blood Cells % 0 %; Platelet Count 161 10^3/cmm (130-400)
[2021-07-27 17:01] LABS: Alanine Aminotransferase 86 U/L (0-33); Albumin Level 4.1 g/dL (3.5-5.2); Alkaline Phosphatase 266 IU/L (35-105); Anion Gap 24.2 (5-19); Aspartate Amino Transferase 269 U/L (0-32); Blood Urea Nitrogen 3 mg/dL (6-20); Calcium 9.3 mg/dL (8.5-10.5); Carbon Dioxide 21 mmol/L (22-29); Chloride 96 mmol/L (98-107); Globulin 3.8 g/dL (1.3-4.6); Glomerular Filtration Rate 87.9 mL/min (90-130); Glucose 88 mg/dL (65-115); Lipase 47 U/L (13-60); Osmolality Calculated 282 mOsm/kg (285-295); Potassium 3.2 mmol/L (3.5-5.1); Sodium 138 mmol/L (136-145); Total Bilirubin 2.8 mg/dL (0.15-1.2); Total Protein 7.9 g/dL (6.6-8.7)
--- NOTE | 2021-07-27 18:41 | W.ED.GENADLT ---
HPI - General Adult General: Chief complaint: General Medical Stated complaint: Stomach pain Time Seen by Provider: 07/27/21 18:41 History of Present Illness: Ms. Portillo is a 50-year-old lady with significant past medical history of alcohol use disorder who presents to the emergency department due to right upper quadrant abdominal pain. Symptoms were subacute in onset approximately 3 weeks ago though she has had similar episodes in the past. She presented to her primary care provider and also to the ED however left before being seen. Since that time symptoms have persisted. She has nausea vomiting with any oral intake. She describes a full pressure sensation which is moderate to severe in intensity. Denies other signs of systemic illness. No other specific changes in health, exacerbating, or alleviating factors identified. Onset (ago): week(s) Location: abdomen Severity: moderate Quality: other (Pressure) Pain Consistency: constant Exacerbating factors: eating and movement Associated symptoms: Reports nausea and vomiting Review of Systems General: Reports: 10 or more systems reviewed and unremarkable except in HPI and below GI: Reports: nausea and vomiting PFSH ED PFSH: Medical History (Updated 08/08/21 @ 11:56 by Todd Sorto DO) Alcoholism Anemia Carpal tunnel syndrome Chronic back pain Chronic pancreatitis Cirrhosis Enteritis GERD (gastroesophageal reflux disease) H. pylori infection Hepatitis A Sciatica Surgical History H/O rotator cuff surgery H/O: hysterectomy History of appendectomy History of cholecystectomy Family History Denies family history of Diabetes CAD (coronary artery disease) Dementia Social History Smoking and tobacco status: current every day smoker Alcohol intake: current Desire information about alcohol rehabilitation?: No Counseling given: Yes Last alcohol use date: 02/15/19 Female Reproductive History: Date of last menstrual period: 05/06/20 Physical Exam Const: COMMON NORMALS: alert GENERAL APPEARANCE: cooperative, well developed, in distress (due to pain) and ill appearing (Chronically) HENMT: COMMON NORMALS: normocephalic and atraumatic HEAD & SCALP: normocephalic and atraumatic THROAT: posterior oropharynx normal Eye: COMMON NORMALS: conjunctivae normal CONJUNCTIVA: Yes conjunctivae normal SCLERA: sclerae normal Neck/C-Spine: COMMON NORMALS: supple GENERAL: Yes trachea midline Resp: COMMON NORMALS: normal respiratory effort and clear to auscultation bilaterally EFFORT & INSPECTION: Yes able to speak in complete sentences AUSCULTATION: clear to auscultation bilaterally Cardio: COMMON NORMALS: regular rate and regular rhythm RATE: regular rate RHYTHM: regular rhythm GI: COMMON NORMALS: Soft to palpation PALPATION: Yes Soft to palpation, Yes Tenderness to palpation present (GI) Details: RUQ, No Guarding due to palpation present (GI), No Rigid due to palpation and Yes Hepatomegaly present PERCUSSION: normal to percussion Extremity: GENERAL: Yes normal exam except as noted and No edema Neuro: COMMON NORMALS: moves all extremities SENSORIUM/ORIENTATION: Yes alert and No Orientation impaired Psych: COMMON NORMALS: mental status grossly normal and Normal thought process present THOUGHT PROCESS: Normal thought process present Course ED course: - Patient was seen and evaluated by me at bedside - Patient placed on cardiac monitors, IV access obtained - Initial evaluation notable for exam as above - Labs and xrays personally interpreted by me -Fluids and antiemetic, analgesia given. - Labs notable for no leukocytosis, macrocytic anemia. INR normal. Metabolic panel with mild hypokalemia and evidence of dehydration, replenishment ordered. Bilirubin is increased which is new for the patient and discussed with the patient. Transaminitis consistent with reported history of alcohol abuse. Urinalysis not concerning for urinary tract infection. - Imaging notable for enlarged with diffuse fatty infiltration but no other obvious pathology explain symptoms - Upon serial reexamination after treatment the patient was improved after multiple rounds of treatment. She was able to tolerate p.o. intake - Based on patient history, evaluation, and testing as interpreted the most likely cause of the patient's condition is abdominal pain likely secondary to alcoholic gastritis and hepatitis. Laboratory evidence of worsening underlying liver disease. This was discussed with the patient. - The results of ED evaluation were discussed with the patient including prescriptions and/or symptomatic cares (if applicable) including appropriate and responsible use, followup plan, and return precautions. The patient verbalized understanding and felt safe for discharge. - Patient discharged in satisfactory condition. Note: Click bubbles or prepopulated butts in note writing are used for assistance with data collection and billing and are inherently more limited than narrative and other text portions of this note. Please use narrative for additional clinical history and defer to narrative/free test for any case of contradictory information. If information appears in only free text or click bubble it should be considered present or absent as reported. Please contact note customs entry writer for clarifications of clinical information or contradictory information. MDM is a brief summary, contradictory or erroneous seeming information should be clarified and full note should be reviewed. Vital Signs: Vital signs: Vital Signs Temperature 99.4 F 07/27/21 22:53 Pulse Rate 104 H 07/28/21 00:39 Respiratory Rate 16 07/28/21 00:39 Blood Pressure 106/58 07/28/21 00:39 Pulse Oximetry 98 07/28/21 00:39 MDM - General Adult Medical Decision Making 50-year-old lady with history of alcohol abuse presenting due to abdominal pain. Laboratory studies consistent with worsening liver disease, though, no acute indication for hospitalization or transfer given no evidence of liver failure. CT with no acute process to explain pain. Most likely alcoholic gastritis and hepatitis. Improved after multiple rounds of treatment and able to tolerate p.o. intake. Satisfactory for outpatient management. Medical Records I reviewed the patient's medical records. Lab Data I reviewed the patient's lab results. : 07/27/21 16:27 07/27/21 16:27 Radiology Impressions Abdomen/Pelvis CT 07/27/21 19:51 IMPRESSION: 1. Enlarged liver with diffuse fatty infiltration. 2. Partial resection of the sigmoid colon. Laboratory Results WBC 5.0 10^3/uL (4.0-10.0) 07/27/21 16: RBC 2.70 10^6/uL (4.1-5.3) L 07/27/21 16: Hgb 10.8 g/dL (11.5-15.3) L 07/27/21 16: Hct 30.4 % (37.0-47.0) L 07/27/21 16: MCV 112.6 fl (81-99) H 07/27/21 16: MCH 40.0 pg (28.0-34.0) H 07/27/21 16: MCHC 35.5 g/dL (30.0-36.0) 07/27/21 16: RDW 19.0 % (12.1-15.1) H 07/27/21 16: Plt Count 161 10^3/cmm (130-400) 07/27/21 16: MPV 11.3 fL (7.4-10.4) H 07/27/21 16: Neut % (Auto) 61.8 % 07/27/21 16: Lymph % (Auto) 24.6 % 07/27/21 16: [place] % (Auto) 8.4 % 07/27/21 16: Eos % (Auto) 3.8 % 07/27/21 16: Baso % (Auto) 1.0 % 07/27/21 16: Neut # (Auto) 3.09 10^3/uL (1.8-7.7) 07/27/21 16: Lymph # (Auto) 1.2 10^3/uL (0.8-4.8) 07/27/21 16: [place] # (Auto) 0.4 10^3/uL (0.2-0.9) 07/27/21 16: Eos # (Auto) 0.2 10^3/uL (0.0-0.8) 07/27/21 16: Baso # (Auto) 0.1 10^3/uL (0.0-0.1) 07/27/21: Nucleated RBC % (auto) 0 % 07/27/21: Nucleated RBCs # 0.0 /100WBC 07/27/21 16: PT 14.40 SECONDS (12.1-14.9) 07/27/21 22:35 INR 1.09 (0.8-1.2) 07/27/21 22:35 APTT 31.4 SECONDS (23.9-36.7) 07/27/21 22:35 Sodium 138 mmol/L (136-145) 07/27/21 16: Potassium 3.2 mmol/L (3.5-5.1) L 07/27/21 16: Chloride 96 mmol/L (98-107) L 07/27/21 16: Carbon Dioxide 21 mmol/L (22-29) L 07/27/21 16: Anion Gap 24.2 (5-19) H 07/27/21 16: BUN 3 mg/dL (6-20) L 07/27/21 16:27 Creatinine 0.7 mg/dL (0.5-0.9) 07/27/21 16:27 GFR Calculation 87.9 mL/min (90-130) L 07/27/21 16:27 Glucose 88 mg/dL (65-115) 07/27/21 16:27 Calculated Osmolality 282 mOsm/kg (285-295) L 07/27/21 16:27 Calcium 9.3 mg/dL (8.5-10.5) 07/27/21 16:27 Total Bilirubin 2.8 mg/dL (0.15-1.2) H 07/27/21 16:27 AST 269 U/L (0-32) H 07/27/21 16:27 ALT 86 U/L (0-33) H 07/27/21 16:27 Alkaline Phosphatase 266 IU/L (35-105) H 07/27/21 16:27 Total Protein 7.9 g/dL (6.6-8.7) 07/27/21 16:27 Albumin 4.1 g/dL (3.5-5.2) 07/27/21 16:27 Globulin 3.8 g/dL (1.3-4.6) 07/27/21 16:27 Lipase 47 U/L (13-60) 07/27/21 16:27 Urine Color Yellow (Yellow) 07/27/21 19:14 Urine Appearance Clear (CLEAR) 07/27/21 19:14 Urine pH 8 (5-7) H 07/27/21 19:14 Ur Specific [place] 1.005 (1.005-1.030) 07/27/21 19:14 Urine Protein Neg (Negative) 07/27/21 19:14 Urine Glucose (UA) Negative (Normal) 07/27/21 19:14 Urine Ketones Negative (Negative) 07/27/21 19:14 Urine Blood Neg (Negative) 07/27/21 19:14 Urine Nitrate Negative (Negative) 07/27/21 19:14 Urine Bilirubin Neg (Negative) 07/27/21 19:14 Prot Sulfosalicylic Acd Negative (Negative) 07/27/21 19:14 Urine Urobilinogen 1 mg/dL (Negative) H 07/27/21 19:14 Ur Leukocyte Esterase Negative (Negative) 07/27/21 19:14 Discharge Plan Discharge Patient Disposition: Home Clinical Impression: Alcoholic gastritis, Alcoholic hepatitis, Anemia, macrocytic, Hypokalemia, Dehydration, Elevated bilirubin, Transaminitis, Enlarged liver Condition: Stable Prescriptions: New Protonix 40 mg tablet,delayed release (DR/EC) 40 mg PO BID 14 Days Qty: 28 0RF oxycodone 5 mg tablet 5 mg PO Q6H PRN (Reason: pain) Qty: 2 0RF ondansetron 4 mg tablet,disintegrating 4 mg PO TID PRN (Reason: nausea and vomiting) Qty: 15 0RF No Action Combivent Respimat 20-100 mcg/actuation mist 1 puff INHALATION Q6H PRN (Reason: Bronchospasm) 0RF omeprazole 40 mg Capsule,Delayed Release(Dr/Ec) 40 mg PO BID 0RF acetaminophen [Tylenol Ex Str Rapid Release] 500 mg Tablet 1,000 mg PO Q4H PRN (Reason: Pain) 0RF albuterol sulfate [ProAir HFA] 90 mcg/actuation HFA aerosol inhaler 2 puff INHALATION Q4H PRN (Reason: Shortness Of Breath) 0RF ondansetron HCl 8 mg tablet 8 mg PO Q8H PRN (Reason: Nausea And Vomiting) 0RF Aspir-81 81 mg Tablet,Delayed Release (Dr/Ec) 81 mg PO DAILY 0RF metoclopramide HCl 5 mg tablet 5 mg PO DAILY PRN (Reason: Nausea) 0RF Nitrostat 0.4 mg Tablet, Sublingual 0.4 mg SUBLINGUAL Q5M PRN (Reason: Chest Pain) 0RF Rx Instructions: do not exceed 3 doses per episode chlordiazepoxide HCl 10 mg capsule 10 mg PO Q6H PRN (Reason: withdrawal symptoms) Qty: 30 0RF Reglan 10 mg tablet 10 mg PO Q6H PRN (Reason: nausea and vomiting) Qty: 20 0RF Discharge Orders: Discharge ED (Routine); Ordered 07/28/21 Ordered By: Estuardo Talamantes Referrals: Aditya Degroot DO [Primary Care Provider] - Discharge Diet: Usual diet Discharge Activity: Increase activity as tolerated Patient Instructions: Dehydration (ED), Hypokalemia (ED), Abdominal Pain (ED), Alcoholic Hepatitis (ED), Opioid Safety Activity Restrictions/Additional Instructions: Thank you for visiting the emergency department. You were seen and evaluated for abdominal pain. Most likely cause of your symptoms is alcoholic hepatitis and gastritis. As discussed you have damaged her liver that is ongoing from continued alcohol abuse. Failure to stop abusing alcohol will likely lead to or worse. Avoid Tylenol and NSAIDs. Please follow-up with your primary care provider. Return to the emergency department for uncontrolled symptoms or anything else that you are concerned about a feel needs emergency department evaluation. Coding Level of Care Code ED Industrial Relations Commissioner for Shila Fwd Exam Comprehensive
[2021-07-27] MEDS: morphine 4 mg/mL SDV 1 mL IVP ×2 (19:20→23:01)
[2021-07-27] MEDS: ondansetron 2 mg/ML SDV 2 mL 4 MG IVP (19:21)
[2021-07-27] MEDS: sodium chloride 0.9% 1,000 ML 999 ML IV ×2 (19:21→21:20)
[2021-07-27 19:25] LABS: Add Urine Microscopic? NO; Charge for UA Resulting for Rev
[2021-07-27 19:26] LABS: Specific Gravity, Urine 1.005 (1.005-1.030); Urine Appearance Clear (CLEAR); Urine Color Yellow (Yellow); pH Urine 8 (5-7)
[2021-07-27 19:27] LABS: Bilirubin Urine Neg (Negative); Blood Urine Neg (Negative); Glucose Urine UA Negative (Normal); Ketones Urine Negative (Negative); Nitrate Urine Negative (Negative); Protein Urine Neg (Negative); Sulfosalicylic Acid Urine Negative (Negative)
[2021-07-27 19:28] LABS: Leukocyte Esterase Urine Negative (Negative); Urobilinogen Urine 1 mg/dL (Negative)
[2021-07-27] MEDS: haloperidol inj 5 mg/mL INJ 1 mL 2 MG IVP (19:35)
[2021-07-27] MEDS: folic acid 1 mg Tablet PO (19:35)
--- NOTE | 2021-07-27 19:51 | CTR_ITS ---
PROCEDURE INFORMATION: Exam: CT Abdomen And Pelvis Without Contrast Exam date and time: 07/27/2021 8:10 PM Age: 50 years old Clinical indication: Abdominal pain; Generalized; Additional info: Ruq abd pain TECHNIQUE: Imaging protocol: Computed tomography of the abdomen and pelvis without contrast. Radiation optimization: All CT scans at this facility use at least one of these dose optimization techniques: automated exposure control; mA and/or kV adjustment per patient size (includes targeted exams where dose is matched to clinical indication); or iterative reconstruction. COMPARISON: CT abdomen pelvis w con* [id number] 01/21/2021 5:13 PM RADIATION DOSE METRICS: Total DLP (mGy-cm): 1683.81 FINDINGS: Lungs: Calcified granulomas in the left lung base. Diaphragm: Small hiatal hernia. Liver: Hepatomegaly with diffuse fatty infiltration, measuring 22.6 cm in length. Gallbladder and bile ducts: Cholecystectomy. Mild prominence of the extrahepatic bile ducts is most likely reservoir effect. Pancreas: Normal. No ductal dilation. Spleen: Normal. No splenomegaly. Adrenal glands: Normal. No mass. Kidneys and ureters: Normal. No hydronephrosis. Stomach and bowel: Partial resection of the sigmoid colon. The remainder of the colon is unremarkable. The stomach and small bowel are normal. No wall thickening or obstruction. Appendix: The appendix is not visualized. No secondary signs of appendicitis. Intraperitoneal space: Unremarkable. No free air. No significant fluid collection. Vasculature: Unremarkable. No abdominal aortic aneurysm. Lymph nodes: Unremarkable. No enlarged lymph nodes. Urinary bladder: Partially decompressed urinary bladder. No wall thickening. Reproductive: The uterus and ovaries are absent. Bones/joints: Mild degenerative changes of the spine with multiple Schmorl's nodes. No fracture identified. Soft tissues: Unremarkable. CT/CT abdomen pelvis wo con [id number] IMPRESSION: 1. Enlarged liver with diffuse fatty infiltration. 2. Partial resection of the sigmoid colon.
[2021-07-27] MEDS: potassium chloride ER 20 mEq Tablet 40 MEQ PO (21:20)
[2021-07-27] MEDS: diphenhydrAMINE 50 mg/mL SDV 1mL 12.5 MG IVP (21:33)
[2021-07-27] MEDS: metoclopramide 5 mg/mL SDV 2 mL 10 MG IVP (21:34)
[2021-07-27 22:56] LABS: INR 1.09 (0.8-1.2)
[2021-07-27 22:57] LABS: Partial Thromboplastin Time 31.4 SECONDS (23.9-36.7)
[2021-07-28] VITALS: BP 106/58; PULSE 104; RESP 16; O2SAT 98
[2021-07-28 00:39] VITALS: BP 106/58; PULSE 104; RESP 16; O2SAT 98
== END 2021-07-28 00:41 | disposition home or self-care (01) ==
PROVIDERS: Physician Assistant; Emergency Provider Emergency Medicine; PCP Family Medicine
DX: K29.00 Acute gastritis without bleeding (principal); K70.10 Alcoholic hepatitis without ascites; D53.9 Nutritional anemia, unspecified; E87.6 Hypokalemia; E86.0 Dehydration; R17 Unspecified jaundice; R16.0 Hepatomegaly, not elsewhere classified
CPT/HCPCS: 74176; 80053; 81003; 83690; 85025; 85610; 85730; 96361; 96374; 96375; 96376; 99284; J1200; J1630; J2270; J2405; J2765; J3411; J7030

== ENCOUNTER 2021-07-31 08:38 | Emergency (ER) | payer MEDICAID, SELFPAY ==
[2021-07-31 08:48] VITALS: PULSE 116; RESP 22; TEMP 36.8; O2SAT 96; BMI 30.9
--- NOTE | 2021-07-31 08:53 | W.ED.ABDPA2 ---
HPI - Abdominal Pain General: Chief Complaint: Nausea/Vomiting/Diarrhea Stated Complaint: abd pain/tightness Time Seen by Provider: 07/31/21 08:40 Source: patient Mode of arrival: ambulatory Limitations: no limitations History of Present Illness: 50-year-old female with a history of chronic abdominal pain states she been having abdominal pain over the last week to 2 weeks she does have a history of alcoholism as well. States the pain is sharp in nature rates it a 6 out of 10 currently she has had vomiting. She was seen here 4 days ago had a CT scan that was normal placed on Zofran states that her vomiting is not improved. She denies any chest pain. Associated Symptoms: Reports nausea and vomiting; Denies chills, dysuria and fever(s) Related Data: Date of Last Menstrual Period: 05/06/20 Review of Systems Const: Denies: fever(s), chills, body aches or change in appetite Eyes: Denies: blurry vision or eye discomfort ENMT: Denies: throat pain or dental pain Card: Denies: chest pain Resp: Denies: dyspnea GI: Reports: abdominal pain, nausea and vomiting : Denies: dysuria Musc: Denies: neck pain or back pain Skin/Breast: Denies: rash Neuro: Denies: headache(s) Psych: Denies: depression Eric/Lymph: Denies: easy bruising All/Imm: Denies: urticaria PFSH ED PFSH: Medical History (Updated 07/31/21 @ 10:24 by Bruce Valdes MD) Alcoholism Anemia Carpal tunnel syndrome Chronic back pain Chronic pancreatitis Cirrhosis Enteritis GERD (gastroesophageal reflux disease) H. pylori infection Hepatitis A Sciatica Surgical History H/O rotator cuff surgery H/O: hysterectomy History of appendectomy History of cholecystectomy Family History Denies family history of Diabetes CAD (coronary artery disease) Dementia Social History Smoking and tobacco status: current every day smoker Alcohol intake: current Desire information about alcohol rehabilitation?: No Counseling given: Yes Last alcohol use date: 02/15/19 Female Reproductive History: Date of last menstrual period: 05/06/20 Physical Exam Const: COMMON NORMALS: no acute distress, patient oriented x3 and healthy appearing HENMT: COMMON NORMALS: normocephalic and atraumatic HEAD & SCALP: normocephalic and atraumatic Eye: COMMON NORMALS: Equal, round and reactive pupils present and EOMs intact bilaterally PUPIL: Yes Equal, round and reactive pupils present Neck/C-Spine: COMMON NORMALS: full ROM and supple Chest: COMMONS NORMALS: normal inspection of the chest and normal palpation of entire chest wall Resp: COMMON NORMALS: normal respiratory effort, No retractions, No use of accessory muscles and clear to auscultation bilaterally AUSCULTATION: clear to auscultation bilaterally Cardio: COMMON NORMALS: regular rate, regular rhythm and No murmurs present (Cardio) RATE: regular rate RHYTHM: regular rhythm GI: COMMON NORMALS: Normal to inspection, nondistended, normoactive bowel sounds present, Soft to palpation, non-tender and no masses PALPATION: Yes Soft to palpation Extremity: COMMON NORMALS: normal to inspection and full ROM Neuro: COMMON NORMALS: patient oriented x3, moves all extremities and no focal motor deficits Psych: COMMON NORMALS: mental status grossly normal, Normal thought process present and cooperative THOUGHT PROCESS: Normal thought process present Skin: COMMON NORMALS: no rashes or lesions noted and no wounds GENERAL SKIN EXAM: no rashes or lesions noted Course Vital Signs: Vital signs: Vital Signs Temperature 98.3 F 07/31/21 08:48 Pulse Rate 116 H 07/31/21 08:48 Respiratory Rate 22 H 07/31/21 08:48 Pulse Oximetry 98 07/31/21 09:27 MDM - Abdominal Pain Medical Decision Making Patient presents here the vomiting that is chronic in nature she feels improved here after Reglan she had a CT scan done 5 days ago showed no acute abnormalities she does have a urinary tract infection she is able to tolerate p.o. here will prescribe her some potassium replacement Keflex for UTI Reglan and get her follow-up with surgery outpatient she is return if worsening she understands agrees to plan. Lab Data : 07/31/21 09:34 07/31/21 09:34 Labs/Radiology: Laboratory Results WBC 9.2 10^3/uL (4.0-10.0) 07/31/21 09:34 RBC 2.54 10^6/uL (4.1-5.3) L 07/31/21 09:34 Hgb 10.2 g/dL (11.5-15.3) L 07/31/21 09:34 Hct 29.0 % (37.0-47.0) L 07/31/21 09:34 MCV 114.2 fl (81-99) H 07/31/21 09:34 MCH 40.2 pg (28.0-34.0) H 07/31/21 09:34 MCHC 35.2 g/dL (30.0-36.0) 07/31/21 09:34 RDW 17.3 % (12.1-15.1) H 07/31/21 09:34 Plt Count 152 10^3/cmm (130-400) 07/31/21 09:34 MPV 12.1 fL (7.4-10.4) H 07/31/21 09:34 Neut % (Auto) 80.5 % 07/31/21 09:34 Lymph % (Auto) 7.0 % 07/31/21 09:34 [place] % (Auto) 8.6 % 07/31/21 09:34 Eos % (Auto) 2.7 % 07/31/21 09:34 Baso % (Auto) 0.3 % 07/31/21 09:34 Neut # (Auto) 7.41 10^3/uL (1.8-7.7) 07/31/21 09:34 Lymph # (Auto) 0.6 10^3/uL (0.8-4.8) L 07/31/21 09:34 [place] # (Auto) 0.8 10^3/uL (0.2-0.9) 07/31/21 09:34 Eos # (Auto) 0.3 10^3/uL (0.0-0.8) 07/31/21 09:34 Baso # (Auto) 0.0 10^3/uL (0.0-0.1) 07/31/21 09:34 Nucleated RBC % (auto) 0.2 % 07/31/21 09:34 Nucleated RBCs # 0.0 /100WBC 07/31/21 09:34 Sodium 132 mmol/L (136-145) L 07/31/21 09:34 Potassium 3.0 mmol/L (3.5-5.1) L 07/31/21 09:34 Chloride 90 mmol/L (98-107) L 07/31/21 09:34 Carbon Dioxide 20 mmol/L (22-29) L 07/31/21 09:34 Anion Gap 25.0 (5-19) H 07/31/21 09:34 BUN 9 mg/dL (6-20) 07/31/21 09:34 Creatinine 0.7 mg/dL (0.5-0.9) 07/31/21 09:34 GFR Calculation 87.9 mL/min (90-130) L 07/31/21 09:34 Glucose 71 mg/dL (65-115) 07/31/21 09:34 Calculated Osmolality 271 mOsm/kg (285-295) L 07/31/21 09:34 Calcium 8.6 mg/dL (8.5-10.5) 07/31/21 09:34 Total Bilirubin 5.7 mg/dL (0.15-1.2) H 07/31/21 09:34 AST 111 U/L (0-32) H 07/31/21 09:34 ALT 45 U/L (0-33) H 07/31/21 09:34 Alkaline Phosphatase 212 IU/L (35-105) H 07/31/21 09:34 Total Protein 7.7 g/dL (6.6-8.7) 07/31/21 09:34 Albumin 3.6 g/dL (3.5-5.2) 07/31/21 09:34 Globulin 4.1 g/dL (1.3-4.6) 07/31/21 09:34 Lipase 22 U/L (13-60) 07/31/21 09:34 Urine Color [place] (Yellow) 07/31/21 08:45 Urine Appearance Hazy (CLEAR) A 07/31/21 08:45 Urine pH 6 (5-7) 07/31/21 08:45 Ur Specific [place] 1.010 (1.005-1.030) 07/31/21 08:45 Urine Protein 2+ (Negative) H 07/31/21 08:45 Urine Glucose (UA) Norm (Normal) 07/31/21 08:45 Urine Ketones 1+ (Negative) H 07/31/21 08:45 Urine Blood 3+ (Negative) H 07/31/21 08:45 Urine Nitrate Positive (Negative) H 07/31/21 08:45 Urine Bilirubin 2+ (Negative) H 07/31/21 08:45 Urine Urobilinogen 4+ mg/dL (Negative) H 07/31/21 08:45 Ur Leukocyte Esterase 2+ (Negative) H 07/31/21 08:45 Urine RBC 15-25 /hpf (0-2) H 07/31/21 08:45 Urine WBC >100 /hpf (0-5) H 07/31/21 08:45 Ur Squamous Epith Cells 0-4 /hpf (0-5) H 07/31/21 08:45 Amorphous Sediment Not Reportable 07/31/21 08:45 Urine Bacteria 1+ /hpf (NONE) H 07/31/21 08:45 Discharge Plan Discharge Patient Disposition: Home Clinical Impression: Acute cystitis, Hypokalemia, Vomiting Condition: Stable Prescriptions: New cephalexin 500 mg capsule 500 mg PO TID 7 Days Qty: 21 0RF Reglan 10 mg tablet 10 mg PO Q6H PRN (Reason: nausea and vomiting) Qty: 20 0RF potassium chloride 40 mEq/15 mL liquid 40 meq PO DAILY 5 Days Qty: 473 0RF No Action Combivent Respimat 20-100 mcg/actuation mist 1 puff INHALATION Q6H PRN (Reason: Bronchospasm) 0RF omeprazole 40 mg Capsule,Delayed Release(Dr/Ec) 40 mg PO BID 0RF acetaminophen [Tylenol Ex Str Rapid Release] 500 mg Tablet 1,000 mg PO Q4H PRN (Reason: Pain) 0RF albuterol sulfate [ProAir HFA] 90 mcg/actuation HFA aerosol inhaler 2 puff INHALATION Q4H PRN (Reason: Shortness Of Breath) 0RF ondansetron HCl 8 mg tablet 8 mg PO Q8H PRN (Reason: Nausea And Vomiting) 0RF Aspir-81 81 mg Tablet,Delayed Release (Dr/Ec) 81 mg PO DAILY 0RF metoclopramide HCl 5 mg tablet 5 mg PO DAILY PRN (Reason: Nausea) 0RF Nitrostat 0.4 mg Tablet, Sublingual 0.4 mg SUBLINGUAL Q5M PRN (Reason: Chest Pain) 0RF Rx Instructions: do not exceed 3 doses per episode chlordiazepoxide HCl 10 mg capsule 10 mg PO Q6H PRN (Reason: withdrawal symptoms) Qty: 30 0RF Protonix 40 mg tablet,delayed release (DR/EC) 40 mg PO BID 14 Days Qty: 28 0RF oxycodone 5 mg tablet 5 mg PO Q6H PRN (Reason: pain) Qty: 2 0RF ondansetron 4 mg tablet,disintegrating 4 mg PO TID PRN (Reason: nausea and vomiting) Qty: 15 0RF Discharge Orders: Discharge ED (Routine); Ordered 07/31/21 Ordered By: Bruce Valdes Referrals: Aditya Degroot DO [Primary Care Provider] - 1-3 days Todd Sorto DO [Physician] - 1-3 days Discharge Diet: Advance as tolerated Discharge Activity: Resume usual activity Patient Instructions: Opioid Safety Coding Level of Care Code ED Manager [facility] Fwd Exam Comprehensive
[2021-07-31] MEDS: metoclopramide 5 mg/mL SDV 2 mL 10 MG IVP (09:06)
[2021-07-31] MEDS: sodium chloride 0.9% 1,000 ML 999 ML IV (09:07)
[2021-07-31] MEDS: diphenhydrAMINE 50 mg/mL SDV 1mL IVP (09:07)
[2021-07-31 09:10] LABS: Urine Appearance Hazy (CLEAR); Urine Color Amber (Yellow); pH Urine 6 (5-7)
[2021-07-31 09:11] LABS: Bilirubin Urine 2+ (Negative); Blood Urine 3+ (Negative); Glucose Urine UA Norm (Normal); Ketones Urine 1+ (Negative); Leukocyte Esterase Urine 2+ (Negative); Nitrate Urine Positive (Negative); Protein Urine 2+ (Negative); Urobilinogen Urine 4+ mg/dL (Negative)
[2021-07-31 09:12] LABS: Add Urine Microscopic? YES
[2021-07-31 09:15] LABS: RBC Urine 15-25 /hpf (0-2); WBC Urine >100 /hpf (0-5)
[2021-07-31 09:16] LABS: Bacteria Urine 1+ /hpf; Squamous Epithelial Cell Urine 0-4 /hpf (0-5)
[2021-07-31 09:18] LABS: Add Urine Culture? Yes
[2021-07-31] MEDS: cefTRIAXone 1,000 MG in sodium chloride 0.9% (plus) 50 ML 100 MG IV (09:21)
[2021-07-31 09:27] VITALS: O2SAT 98
[2021-07-31 09:38] LABS: Basophils % 0.3 %; Eosinophils # 0.3 10^3/uL (0.0-0.8); Eosinophils % 2.7 %; Hemoglobin 10.2 g/dL (11.5-15.3); Lymphocytes # 0.6 10^3/uL (0.8-4.8); Mean Corpuscular HGB Conc 35.2 g/dL (30.0-36.0); Mean Corpuscular Hemoglobin 40.2 pg (28.0-34.0); Mean Corpuscular Volume 114.2 fl (81-99); Mean Platelet Volume 12.1 fL (7.4-10.4); Monocytes # 0.8 10^3/uL (0.2-0.9); Monocytes % 8.6 %; Neutrophils # 7.41 10^3/uL (1.8-7.7); Neutrophils % 80.5 %; Nucleated Red Blood Cells % 0.2 %; Platelet Count 152 10^3/cmm (130-400); Red Blood Count 2.54 10^6/uL (4.1-5.3); Red Cell Distribution Width 17.3 % (12.1-15.1); White Blood Count 9.2 10^3/uL (4.0-10.0)
[2021-07-31 10:08] LABS: Alanine Aminotransferase 45 U/L (0-33); Albumin Level 3.6 g/dL (3.5-5.2); Alkaline Phosphatase 212 IU/L (35-105); Blood Urea Nitrogen 9 mg/dL (6-20); Calcium 8.6 mg/dL (8.5-10.5); Carbon Dioxide 20 mmol/L (22-29); Chloride 90 mmol/L (98-107); Globulin 4.1 g/dL (1.3-4.6); Glomerular Filtration Rate 87.9 mL/min (90-130); Glucose 71 mg/dL (65-115); Lipase 22 U/L (13-60); Osmolality Calculated 271 mOsm/kg (285-295); Sodium 132 mmol/L (136-145); Total Bilirubin 5.7 mg/dL (0.15-1.2); Total Protein 7.7 g/dL (6.6-8.7)
[2021-07-31 10:17] LABS: Aspartate Amino Transferase 111 U/L (0-32)
--- NOTE | 2021-08-01 04:49 | DCPLANNER ---
Addendum entered by Ana Maria Amaya 09/04/21 15:41: Patient had a follow up appointment scheduled for 08.08.[address] Sorto at general surgery - patient did attend appointment. Original Note: consumer lending manager had message to schedule a follow up appointment for patient with general surgery. consumer lending manager sent patients information to the front office staff at general surgery. Patients information will be printed and reviewed. Clinic will call patient with appointment information.
== END 2021-07-31 11:20 | disposition home or self-care (01) ==
PROVIDERS: Emergency Provider Emergency Medicine; PCP Family Medicine
DX: N30.00 Acute cystitis without hematuria (principal); E87.6 Hypokalemia; R11.10 Vomiting, unspecified
CPT/HCPCS: 80053; 81001; 83690; 85025; 87077; 87086; 87186; 96365; 96375; 99284; J0696; J1200; J2765; J7030

== ENCOUNTER → 2021-08-08 11:15 | Outpatient (BNVA) | payer MEDICAID, SELFPAY | PROVIDERS: PCP Family Medicine; Visit Provider Surgery | DX: K29.20 Alcoholic gastritis without bleeding (principal); R10.9 Unspecified abdominal pain | CPT/HCPCS: 99203 ==

== ENCOUNTER 2021-08-22 10:04 | Emergency (ER) | payer MEDICAID, SELFPAY ==
[2021-08-22 10:16] VITALS: BP 102/63; PULSE 114; RESP 20; TEMP 36.5; O2SAT 98; BMI 29.2
[2021-08-22 10:51] VITALS: BP 111/76; PULSE 101; RESP 19; TEMP 36.8; O2SAT 96
--- NOTE | 2021-08-22 10:51 | XRR_ITS ---
PROCEDURE INFORMATION: Exam: XR Chest Exam date and time: 08/22/2021 11:23 AM Age: 50 years old Clinical indication: Cough and shortness of breath; Additional info: Covid symptoms TECHNIQUE: Imaging protocol: Radiologic exam of the chest. Views: 1 view. Other technique: Frontal portable upright view of the chest. COMPARISON: CR XR chest 1V portable [id number] 06/01/2021 3:03 PM FINDINGS: Lungs: The lungs are clear bilaterally. The pulmonary vasculature is normal. Pleural spaces: No pleural effusion. No pneumothorax. Heart/Mediastinum: The heart is normal in size and contour. Mediastinum: Stable. Bones/joints: Lower cervical spinal anterior fixation hardware. Mild rightward lumbar spinal curvature, incompletely imaged. XR/XR chest 1V portable [id number] IMPRESSION: No acute cardiopulmonary abnormality identified.
[2021-08-22 11:07] VITALS: O2SAT 96
--- NOTE | 2021-08-22 11:24 | ECG_ITS ---
[facility] Test Date: 2021-08-22 Pat Name: Melissa Portillo Department: Room: Gender: Female Multigraph Operator: : 1970 Requested By: Lance Benson Order Number: [id number] Hill MD: Jensen Kidd M.D. Measurements Intervals [place] Rate: 104 P: 55 [place]: 157 QRS: 44 QRSD: 86 T: 36 QT: 354 QTc: 468 Interpretive Statements SINUS TACHYCARDIA POSSIBLE LEFT ATRIAL ENLARGEMENT [-0.1mV P-WAVE IN V1/V2] NONSPECIFIC ST & T-WAVE ABNORMALITY Compared to ECG 06/01/2021 17:05:57 T-wave abnormality now present Sinus rhythm no longer present Electronically Signed On 08-22-2021 18:21:18 CDT by Jensen Kidd M.D. [id number]
[2021-08-22 11:25] LABS: Influenza A by IFA Negative (Negative); Influenza B by IFA Negative (Negative)
--- NOTE | 2021-08-22 11:27 | W.ED.COVID ---
Documented by User: [email or web address] Mondragon 08/23/21 14:17 HPI - COVID General: Chief Complaint: COVID symptoms Stated Complaint: Cough Time Seen by Provider: 08/22/21 10:43 Triage information: Has fever, cough or shortness of breath. Exposure to COVID + person last 14 days History of Present Illness: Patient is a 50-year-old female comes to the ED with COVID symptoms. Symptoms started approximately 3 days ago. Patient found out her family that was living with her just tested positive for COVID and had similar symptoms. Currently she is having nausea, vomiting, cough, nasal congestion drainage and body aches. She endorses some chest tenderness to palpation and a little bit of chest pain when she coughs but denies any constant or resting chest pain. Denies any fevers. Patient also states that she is currently being treated for a UTI with ciprofloxacin. Patient says she takes a potassium supplement at home but has not been taking it for the past several days because she does not like the taste. COVID 19 common symptoms: positive productive cough, body aches, nausea and vomiting; negative fever(s), chills, non-productive cough, dyspnea, fatigue, headache(s), throat pain, nasal congestion or diarrhea COVID 19 other sytmptoms: negative chest pain COVID Results: SARS-CoV-2 Antigen (Rapid) Negative (Negative) 02/16/21 16:39 02/16/21 SARS-CoV-2 RNA (RT-PCR) Detected (NOT DETECTED) A 08/22/21 11:00 08/22/21 Review of Systems Const: Reports: body aches; Denies: fever(s), chills or fatigue Eyes: Denies: change in vision or eye discomfort ENMT: Denies: throat pain, odynophagia, nasal discharge or nasal congestion Card: Denies: chest pain, palpitations, edema, swelling of feet/ankles, dyspnea on exertion or orthopnea Resp: Reports: productive cough; Denies: dyspnea or non-productive cough GI: Reports: nausea and vomiting; Denies: abdominal pain, diarrhea, constipation or hematochezia : Denies: flank pain, dysuria or hematuria Musc: Denies: neck pain, back pain or extremity swelling Skin/Breast: Denies: rash or new lesions Neuro: Denies: headache(s), numbness in extremities or weakness in extremities PFSH ED PFSH: Medical History (Updated 08/30/21 @ 00:01 by ) Alcoholism Anemia Carpal tunnel syndrome Chronic back pain Chronic pancreatitis Cirrhosis Enteritis GERD (gastroesophageal reflux disease) H. pylori infection Hepatitis A Sciatica Surgical History H/O rotator cuff surgery H/O: hysterectomy History of appendectomy History of cholecystectomy Family History Denies family history of Diabetes CAD (coronary artery disease) Dementia Social History Smoking and tobacco status: current every day smoker Alcohol intake: current Desire information about alcohol rehabilitation?: No Counseling given: Yes Last alcohol use date: 02/15/19 Female Reproductive History: Date of last menstrual period: 05/06/20 Physical Exam Const: COMMON NORMALS: patient oriented x3 and alert GENERAL APPEARANCE: cooperative HENMT: COMMON NORMALS: normocephalic HEAD & SCALP: normocephalic MOUTH: Normal oral and palatal mucosa present THROAT: posterior oropharynx normal and uvula midline Neck/C-Spine: COMMON NORMALS: supple GENERAL: Yes normal visual inspection Resp: COMMON NORMALS: normal respiratory effort, No retractions, No use of accessory muscles and clear to auscultation bilaterally EFFORT & INSPECTION: Yes Actively coughing moist AUSCULTATION: clear to auscultation bilaterally Cardio: COMMON NORMALS: regular rate, regular rhythm, S1 normal heart sound present, S2 normal heart sound present, No gallops present (Cardio), No clicks present (Cardio), No murmurs present (Cardio) and Peripheral pulses 2+ throughout RATE: regular rate RHYTHM: regular rhythm HEART SOUNDS: S1 normal heart sound present and S2 normal heart sound present PERIPHERAL PULSES: Peripheral pulses 2+ throughout GI: COMMON NORMALS: Normal to inspection, nondistended, normoactive bowel sounds present, Soft to palpation, non-tender and no masses PALPATION: Yes Soft to palpation : COMMON NORMALS: Yes no CVA tenderness BLADDER/KIDNEY EXAM: Yes no CVA tenderness Back/Pelvis: COMMON NORMALS: no CVA tenderness Extremity: COMMON NORMALS: normal to inspection Neuro: COMMON NORMALS: patient oriented x3 and no focal motor deficits SENSORIUM/ORIENTATION: Yes alert Skin: GENERAL SKIN EXAM: dry skin Course ED course: Patient's nausea and vomiting was controlled with IV fluids and antinausea meds here in the ED. patient says she is feeling a lot better after IV fluids and meds. she was able to keep p.o. fluids down before discharge. Vital Signs: Vital signs: Vital Signs Temperature 98.2 F 08/22/21 10:51 Pulse Rate 104 H 08/22/21 15:58 Respiratory Rate 18 08/22/21 14:21 Blood Pressure 112/81 08/22/21 15:58 Pulse Oximetry 97 08/22/21 15:58 [facility] - COVID Medical Decision Making Patient is a 50-year-old female comes to the ED with COVID symptoms. Symptoms started approximately 3 days ago. Patient found out her family that was living with her just tested positive for COVID and had similar symptoms. Currently she is having nausea, vomiting, cough, nasal congestion drainage and body aches. Patient was a little tacky with a pulse of 114 at triage the rest of her vitals are stable. Exam is benign and she has no abdominal tenderness to palpation. Potassium of 2.5 but the rest of her labs were unremarkable. COVID test pending. EKG showed no acute findings. Chest x-ray showed no acute findings. Patient was given IV fluids, antinausea meds, IV potassium and p.o. potassium here in the ED. Patient was able to tolerate p.o. fluids after given IV fluids and meds and says she is feeling better. I discussed case with Dr. Brown he agreed with plan of giving her p.o. potassium and rechecking her potassium levels in the ED after an hour to see if they have improved. After an hour rechecked her potassium level and it went up to 2.7. She was then given another 40 mEq of potassium p.o. and was discharged home with some Zofran for nausea. Patient was diagnosed with hypokalemia and viral syndrome. She was discharged home with some Zofran for nausea and told to follow-up with her PCP in the next 2 to 3 days to recheck potassium levels. Strict return ED precautions given. She was also told to continue taking her p.o. potassium supplement as previously prescribed. Patient understood and agreed with plan. Lab Data I reviewed the patient's lab results. : 08/22/21 12:10 08/22/21 12:50 Radiology Impressions Chest X-Ray 08/22/21 10:51 IMPRESSION: No acute cardiopulmonary abnormality identified. Laboratory Results WBC 5.4 10^3/uL (4.0-10.0) 08/22/21 12:10 RBC 2.89 10^6/uL (4.1-5.3) L 08/22/21 12:10 Hgb 11.8 g/dL (11.5-15.3) 08/22/21 12:10 Hct 32.4 % (37.0-47.0) L 08/22/21 12:10 MCV 112.1 fl (81-99) H 08/22/21 12:10 MCH 40.8 pg (28.0-34.0) H 08/22/21 12:10 MCHC 36.4 g/dL (30.0-36.0) H 08/22/21 12:10 RDW 12.3 % (12.1-15.1) 08/22/21 12:10 Plt Count 213 10^3/cmm (130-400) 08/22/21 12:10 MPV 10.8 fL (7.4-10.4) H 08/22/21 12:10 Neut % (Auto) 61.7 % 08/22/21 12:10 Lymph % (Auto) 26.2 % 08/22/21 12:10 Sanborn % (Auto) 8.2 % 08/22/21 12:10 Eos % (Auto) 2.4 % 08/22/21 12:10 Baso % (Auto) 1.1 % 08/22/21 12:10 Neut # (Auto) 3.30 10^3/uL (1.8-7.7) 08/22/21 12:10 Lymph # (Auto) 1.4 10^3/uL (0.8-4.8) 08/22/21 12:10 [place]born # (Auto) 0.4 10^3/uL (0.2-0.9) 08/22/21 12:10 Eos # (Auto) 0.1 10^3/uL (0.0-0.8) 08/22/21 12:10 Baso # (Auto) 0.1 10^3/uL (0.0-0.1) 08/22/21 12:10 Nucleated RBC % (auto) 0 % 08/22/21 12:10 Nucleated RBCs # 0.0 /100WBC 08/22/21 12:10 Sodium 138 mmol/L (136-145) 08/22/21 12:50 Potassium 2.7 mmol/L (3.5-5.1) L* 08/22/21 12:50 Chloride 99 mmol/L (98-107) 08/22/21 12:50 Carbon Dioxide 23 mmol/L (22-29) 08/22/21 12:50 Anion Gap 18.7 (5-19) 08/22/21 12:50 BUN 4 mg/dL (6-20) L 08/22/21 12:50 Creatinine 0.7 mg/dL (0.5-0.9) 08/22/21 12:50 GFR Calculation 87.9 mL/min (90-130) L 08/22/21 12:50 Glucose 83 mg/dL (65-115) 08/22/21 12:50 Calculated Osmolality 282 mOsm/kg (285-295) L 08/22/21 12:50 Calcium 7.9 mg/dL (8.5-10.5) L 08/22/21 12:50 Total Bilirubin 2.1 mg/dL (0.15-1.2) H 08/22/21 12:10 AST 124 U/L (0-32) H 08/22/21 12:10 ALT 54 U/L (0-33) H 08/22/21 12:10 Alkaline Phosphatase 198 IU/L (35-105) H 08/22/21 12:10 Total Protein 8.5 g/dL (6.6-8.7) 08/22/21 12:10 Albumin 3.7 g/dL (3.5-5.2) 08/22/21 12:10 Globulin 4.8 g/dL (1.3-4.6) H 08/22/21 12:10 Influenza Type A Ag Negative (Negative) 08/22/21 11:00 Influenza Type B Ag Negative (Negative) 08/22/21 11:00 SARS-CoV-2 RNA (RT-PCR) Detected (NOT DETECTED) A 08/22/21 11:00 SARS-CoV-2 Antigen (Rapid) Negative (Negative) 02/16/21 16:39 02/16/21 SARS-CoV-2 RNA (RT-PCR) Detected (NOT DETECTED) A 08/22/21 11:00 08/22/21 EKG Data EKG 1: EKG interpretation date: 08/22/21 Interpretation: Sinus tachycardia, 104 bpm, no ST segment elevation or depression seen. Discharge Plan Discharge Patient Disposition: Home Clinical Impression: Hypokalemia, Viral syndrome Condition: Stable Prescriptions: New ondansetron 4 mg tablet,disintegrating 4 mg PO Q8H PRN (Reason: nausea and vomiting) Qty: 15 0RF No Action Combivent Respimat 20-100 mcg/actuation mist 1 puff INHALATION Q6H PRN (Reason: Bronchospasm) 0RF omeprazole 40 mg Capsule,Delayed Release(Dr/Ec) 40 mg PO BID 0RF acetaminophen [Tylenol Ex Str Rapid Release] 500 mg Tablet 1,000 mg PO Q4H PRN (Reason: Pain) 0RF albuterol sulfate [ProAir HFA] 90 mcg/actuation HFA aerosol inhaler 2 puff INHALATION Q4H PRN (Reason: Shortness Of Breath) 0RF aspirin [Aspir-81] 81 mg Tablet,Delayed Release (Dr/Ec) 81 mg PO DAILY PRN (Reason: Chest Pain) 0RF nitroglycerin [Nitrostat] 0.4 mg Tablet, Sublingual 0.4 mg SUBLINGUAL Q5M PRN (Reason: Chest Pain) 0RF Rx Instructions: do not exceed 3 doses per episode ondansetron 4 mg tablet,disintegrating 4 mg PO TID PRN (Reason: nausea and vomiting) Qty: 15 0RF ciprofloxacin HCl [Cipro] 500 mg Tablet 500 mg PO Q12H 0RF Rx Instructions: FOR 7 DAYS (RX FILLED 08/16/21) ibuprofen 200 mg Tablet 400 - 800 mg PO Q6H PRN (Reason: Pain) 0RF Discharge Orders: Discharge ED (Routine); Ordered 08/22/21 Ordered By: Lance Benson Referrals: Aditya Degroot DO [Primary Care Provider] - Discharge Diet: Regular Discharge Activity: Increase activity as tolerated Patient Instructions: Hypokalemia (ED), Viral Syndrome (ED) Activity Restrictions/Additional Instructions: Follow-up with PCP in the next 2 to 3 days for reevaluation and to have your potassium level rechecked. Your COVID test is pending and results should be back within the next 48 hours. The hospital will contact you if you have a positive result or you can contact the hospital if you have not heard from them after 48 hours to find out COVID-19 results. Take medications as prescribed. Return to the ER or your medical provider if condition worsens. Please read and understand discharge instructions. Thank you for choosing [facility] for your healthcare needs today. Please realize this is an emergency room and that we are providing you with a medical screening exam and this may not be complete and all inclusive of all the testing and or work up that you may need to determine your ailment or severity of your illness. It is very important that you follow up as instructed or that you return to the Emergency Department should you have concerns or if your condition changes or worsens in any way. Coding Level of Care Code ED Fire Lieutenant for Chg Fwd Exam Comprehensive Documented by User: Robbin Brown DO 08/30/21 06:52 HPI - COVID General: Chief Complaint: COVID symptoms Stated Complaint: Cough Time Seen by Provider: 08/22/21 10:43 COVID Results: SARS-CoV-2 Antigen (Rapid) Negative (Negative) 02/16/21 16:39 02/16/21 SARS-CoV-2 RNA (RT-PCR) Detected (NOT DETECTED) A 08/22/21 11:00 08/22/21 [facility] ED [facility]: Medical History (Updated 08/30/21 @ 00:01 by ) Alcoholism Anemia Carpal tunnel syndrome Chronic back pain Chronic pancreatitis Cirrhosis Enteritis GERD (gastroesophageal reflux disease) H. pylori infection Hepatitis A Sciatica Surgical History H/O rotator cuff surgery H/O: hysterectomy History of appendectomy History of cholecystectomy Family History Denies family history of Diabetes CAD (coronary artery disease) Dementia Social History Smoking and tobacco status: current every day smoker Alcohol intake: current Desire information about alcohol rehabilitation?: No Counseling given: Yes Last alcohol use date: 02/15/19 Course Vital Signs: Vital signs: Vital Signs Temperature 98.2 F 08/22/21 10:51 Pulse Rate 104 H 08/22/21 15:58 Respiratory Rate 18 08/22/21 14:21 Blood Pressure 112/81 08/22/21 15:58 Pulse Oximetry 97 08/22/21 15:58 [facility] - COVID Medical Decision Making Patient is a 50-year-old female comes to the ED with COVID symptoms. Symptoms started approximately 3 days ago. Patient found out her family that was living with her just tested positive for COVID and had similar symptoms. Currently she is having nausea, vomiting, cough, nasal congestion drainage and body aches. Patient was a little tacky with a pulse of 114 at triage the rest of her vitals are stable. Exam is benign and she has no abdominal tenderness to palpation. Potassium of 2.5 but the rest of her labs were unremarkable. COVID test pending. EKG showed no acute findings. Chest x-ray showed no acute findings. Patient was given IV fluids, antinausea meds, IV potassium and p.o. potassium here in the ED. Patient was able to tolerate p.o. fluids after given IV fluids and meds and says she is feeling better. I discussed case with Dr. Brown he agreed with plan of giving her p.o. potassium and rechecking her potassium levels in the ED after an hour to see if they have improved. After an hour rechecked her potassium level and it went up to 2.7. She was then given another 40 mEq of potassium p.o. and was discharged home with some Zofran for nausea. Patient was diagnosed with hypokalemia and viral syndrome. She was discharged home with some Zofran for nausea and told to follow-up with her PCP in the next 2 to 3 days to recheck potassium levels. Strict return ED precautions given. She was also told to continue taking her p.o. potassium supplement as previously prescribed. Patient understood and agreed with plan. Chart reviewed and patient discussed with midlevel. Agree with assessment and plan. Lab Data : 08/22/21 12:10 08/22/21 12:50 Radiology Impressions Chest X-Ray 08/22/21 10:51 IMPRESSION: No acute cardiopulmonary abnormality identified. Laboratory Results WBC 5.4 10^3/uL (4.0-10.0) 08/22/21 12:10 RBC 2.89 10^6/uL (4.1-5.3) L 08/22/21 12:10 Hgb 11.8 g/dL (11.5-15.3) 08/22/21 12:10 Hct 32.4 % (37.0-47.0) L 08/22/21 12:10 MCV 112.1 fl (81-99) H 08/22/21 12:10 MCH 40.8 pg (28.0-34.0) H 08/22/21 12:10 MCHC 36.4 g/dL (30.0-36.0) H 08/22/21 12:10 RDW 12.3 % (12.1-15.1) 08/22/21 12:10 Plt Count 213 10^3/cmm (130-400) 08/22/21 12:10 MPV 10.8 fL (7.4-10.4) H 08/22/21 12:10 Neut % (Auto) 61.7 % 08/22/21 12:10 Lymph % (Auto) 26.2 % 08/22/21 12:10 Sanborn % (Auto) 8.2 % 08/22/21 12:10 Eos % (Auto) 2.4 % 08/22/21 12:10 Baso % (Auto) 1.1 % 08/22/21 12:10 Neut # (Auto) 3.30 10^3/uL (1.8-7.7) 08/22/21 12:10 Lymph # (Auto) 1.4 10^3/uL (0.8-4.8) 08/22/21 12:10 Sanborn # (Auto) 0.4 10^3/uL (0.2-0.9) 08/22/21 12:10 Eos # (Auto) 0.1 10^3/uL (0.0-0.8) 08/22/21 12:10 Baso # (Auto) 0.1 10^3/uL (0.0-0.1) 08/22/21 12:10 Nucleated RBC % (auto) 0 % 08/22/21 12:10 Nucleated RBCs # 0.0 /100WBC 08/22/21 12:10 Sodium 138 mmol/L (136-145) 08/22/21 12:50 Potassium 2.7 mmol/L (3.5-5.1) L* 08/22/21 12:50 Chloride 99 mmol/L (98-107) 08/22/21 12:50 Carbon Dioxide 23 mmol/L (22-29) 08/22/21 12:50 Anion Gap 18.7 (5-19) 08/22/21 12:50 BUN 4 mg/dL (6-20) L 08/22/21 12:50 Creatinine 0.7 mg/dL (0.5-0.9) 08/22/21 12:50 GFR Calculation 87.9 mL/min (90-130) L 08/22/21 12:50 Glucose 83 mg/dL (65-115) 08/22/21 12:50 Calculated Osmolality 282 mOsm/kg (285-295) L 08/22/21 12:50 Calcium 7.9 mg/dL (8.5-10.5) L 08/22/21 12:50 Total Bilirubin 2.1 mg/dL (0.15-1.2) H 08/22/21 12:10 AST 124 U/L (0-32) H 08/22/21 12:10 ALT 54 U/L (0-33) H 08/22/21 12:10 Alkaline Phosphatase 198 IU/L (35-105) H 08/22/21 12:10 Total Protein 8.5 g/dL (6.6-8.7) 08/22/21 12:10 Albumin 3.7 g/dL (3.5-5.2) 08/22/21 12:10 Globulin 4.8 g/dL (1.3-4.6) H 08/22/21 12:10 Influenza Type A Ag Negative (Negative) 08/22/21 11:00 Influenza Type B Ag Negative (Negative) 08/22/21 11:00 SARS-CoV-2 RNA (RT-PCR) Detected (NOT DETECTED) A 08/22/21 11:00 SARS-CoV-2 Antigen (Rapid) Negative (Negative) 02/16/21 16:39 02/16/21 SARS-CoV-2 RNA (RT-PCR) Detected (NOT DETECTED) A 08/22/21 11:00 08/22/21 Discharge Plan Discharge Patient Disposition: Home Clinical Impression: Hypokalemia, Viral syndrome Condition: Stable Prescriptions: New ondansetron 4 mg tablet,disintegrating 4 mg PO Q8H PRN (Reason: nausea and vomiting) Qty: 15 0RF No Action Combivent Respimat 20-100 mcg/actuation mist 1 puff INHALATION Q6H PRN (Reason: Bronchospasm) 0RF omeprazole 40 mg Capsule,Delayed Release(Dr/Ec) 40 mg PO BID 0RF acetaminophen [Tylenol Ex Str Rapid Release] 500 mg Tablet 1,000 mg PO Q4H PRN (Reason: Pain) 0RF albuterol sulfate [ProAir HFA] 90 mcg/actuation HFA aerosol inhaler 2 puff INHALATION Q4H PRN (Reason: Shortness Of Breath) 0RF aspirin [Aspir-81] 81 mg Tablet,Delayed Release (Dr/Ec) 81 mg PO DAILY PRN (Reason: Chest Pain) 0RF nitroglycerin [Nitrostat] 0.4 mg Tablet, Sublingual 0.4 mg SUBLINGUAL Q5M PRN (Reason: Chest Pain) 0RF Rx Instructions: do not exceed 3 doses per episode ondansetron 4 mg tablet,disintegrating 4 mg PO TID PRN (Reason: nausea and vomiting) Qty: 15 0RF ciprofloxacin HCl [Cipro] 500 mg Tablet 500 mg PO Q12H 0RF Rx Instructions: FOR 7 DAYS (RX FILLED 08/16/21) ibuprofen 200 mg Tablet 400 - 800 mg PO Q6H PRN (Reason: Pain) 0RF Discharge Orders: Discharge ED (Routine); Ordered 08/22/21 Ordered By: Lance Benson Referrals: Aditya Degroot, [Primary Care Provider] - Discharge Diet: Regular Discharge Activity: Increase activity as tolerated Patient Instructions: Hypokalemia (ED), Viral Syndrome (ED) Activity Restrictions/Additional Instructions: Follow-up with PCP in the next 2 to 3 days for reevaluation and to have your potassium level rechecked. Your COVID test is pending and results should be back within the next 48 hours. The hospital will contact you if you have a positive result or you can contact the hospital if you have not heard from them after 48 hours to find out COVID-19 results. Take medications as prescribed. Return to the ER or your medical provider if condition worsens. Please read and understand discharge instructions. Thank you for choosing [facility] for your healthcare needs today. Please realize this is an emergency room and that we are providing you with a medical screening exam and this may not be complete and all inclusive of all the testing and or work up that you may need to determine your ailment or severity of your illness. It is very important that you follow up as instructed or that you return to the Emergency Department should you have concerns or if your condition changes or worsens in any way. Coding Level of Care Code ED Fire Lieutenant for Shila Mcallister Exam Comprehensive
[2021-08-22] MEDS: ondansetron 2 mg/ML SDV 2 mL 4 MG IVP (11:49)
[2021-08-22] MEDS: morphine 4 mg/mL SDV 1 mL 2 MG IVP (11:49)
[2021-08-22] MEDS: sodium chloride 0.9% 1,000 ML 999 ML IV (12:08)
[2021-08-22 12:18] LABS: Basophils # 0.1 10^3/uL (0.0-0.1); Basophils % 1.1 %; Eosinophils # 0.1 10^3/uL (0.0-0.8); Eosinophils % 2.4 %; Hematocrit 32.4 % (37.0-47.0); Hemoglobin 11.8 g/dL (11.5-15.3); Lymphocytes # 1.4 10^3/uL (0.8-4.8); Lymphocytes % 26.2 %; Mean Corpuscular HGB Conc 36.4 g/dL (30.0-36.0); Mean Corpuscular Hemoglobin 40.8 pg (28.0-34.0); Mean Corpuscular Volume 112.1 fl (81-99); Mean Platelet Volume 10.8 fL (7.4-10.4); Monocytes # 0.4 10^3/uL (0.2-0.9); Monocytes % 8.2 %; Neutrophils % 61.7 %; Nucleated Red Blood Cells % 0 %; Platelet Count 213 10^3/cmm (130-400); Red Blood Count 2.89 10^6/uL (4.1-5.3); Red Cell Distribution Width 12.3 % (12.1-15.1); White Blood Count 5.4 10^3/uL (4.0-10.0)
[2021-08-22 12:21] VITALS: BP 116/60; PULSE 108; RESP 16; O2SAT 97
[2021-08-22 12:44] LABS: Alanine Aminotransferase 54 U/L (0-33); Albumin Level 3.7 g/dL (3.5-5.2); Alkaline Phosphatase 198 IU/L (35-105); Anion Gap 23.5 (5-19); Aspartate Amino Transferase 124 U/L (0-32); Blood Urea Nitrogen 5 mg/dL (6-20); Calcium 8.8 mg/dL (8.5-10.5); Carbon Dioxide 21 mmol/L (22-29); Chloride 94 mmol/L (98-107); Globulin 4.8 g/dL (1.3-4.6); Glomerular Filtration Rate 87.9 mL/min (90-130); Glucose 84 mg/dL (65-115); Osmolality Calculated 278 mOsm/kg (285-295); Sodium 136 mmol/L (136-145); Total Bilirubin 2.1 mg/dL (0.15-1.2); Total Protein 8.5 g/dL (6.6-8.7)
[2021-08-22 12:46] LABS: Potassium 2.5 mmol/L (3.5-5.1)
[2021-08-22] MEDS: potassium chloride premix 100 ML 50 MEQ IV (13:01)
[2021-08-22] MEDS: potassium chloride ER 20 mEq Tablet 40 MEQ PO ×2 (13:32→15:53)
[2021-08-22] MEDS: metoclopramide 5 mg/mL SDV 2 mL 10 MG IVP (13:32)
[2021-08-22 14:21] VITALS: BP 110/54; PULSE 109; RESP 18; O2SAT 96
[2021-08-22 15:19] LABS: Anion Gap 18.7 (5-19); Blood Urea Nitrogen 4 mg/dL (6-20); Calcium 7.9 mg/dL (8.5-10.5); Carbon Dioxide 23 mmol/L (22-29); Chloride 99 mmol/L (98-107); Glomerular Filtration Rate 87.9 mL/min (90-130); Glucose 83 mg/dL (65-115); Osmolality Calculated 282 mOsm/kg (285-295); Sodium 138 mmol/L (136-145)
[2021-08-22 15:32] LABS: Potassium 2.7 mmol/L (3.5-5.1)
[2021-08-22 15:58] VITALS: BP 112/81; PULSE 104; O2SAT 97
[2021-08-23 15:02] LABS: Quest SARS-CoV-2 RNA DETECTED (NOT DETECTED)
== END 2021-08-22 16:00 | disposition home or self-care (01) ==
PROVIDERS: Emergency Provider Physician Assistant; PCP Family Medicine
DX: U07.1 COVID-19 (principal); E87.6 Hypokalemia; Z79.82 Long term (current) use of aspirin; F17.210 Nicotine dependence, cigarettes, uncomplicated
CPT/HCPCS: 71045; 80048; 80053; 85025; 87635; 87804; 93005; 96365; 96366; 96375; 99285; J2270; J2405; J2765; J3480; J7030

== ENCOUNTER 2021-09-23 12:14 | Emergency (ER) | payer MEDICAID, SELFPAY ==
[2021-09-23] VITALS (21 sets, daily range): BP systolic 99–126; BP diastolic 62–98; PULSE 83–117; RESP 12–29; TEMP 36.6; O2SAT 91–100; BMI 29.8
[2021-09-23 13:00] LABS: Basophils % 0.8 %; Eosinophils % 0.2 %; Hematocrit 30.1 % (37.0-47.0); Hemoglobin 10.4 g/dL (11.5-15.3); Lymphocytes % 19.1 %; Mean Corpuscular HGB Conc 34.6 g/dL (30.0-36.0); Mean Corpuscular Hemoglobin 41.3 pg (28.0-34.0); Mean Corpuscular Volume 119.4 fl (81-99); Mean Platelet Volume 11.1 fL (7.4-10.4); Monocytes # 0.2 10^3/uL (0.2-0.9); Monocytes % 4.3 %; Neutrophils # 3.83 10^3/uL (1.8-7.7); Neutrophils % 75.2 %; Nucleated Red Blood Cells % 0 %; Platelet Count 95 10^3/cmm (130-400); Red Blood Count 2.52 10^6/uL (4.1-5.3); White Blood Count 5.1 10^3/uL (4.0-10.0)
[2021-09-23 13:32] LABS: Alanine Aminotransferase 58 U/L (0-33); Albumin Level 3.5 g/dL (3.5-5.2); Alkaline Phosphatase 267 IU/L (35-105); Aspartate Amino Transferase 234 U/L (0-32); Blood Urea Nitrogen 9 mg/dL (6-20); Calcium 9.1 mg/dL (8.5-10.5); Carbon Dioxide 16 mmol/L (22-29); Chloride 91 mmol/L (98-107); Globulin 4.3 g/dL (1.3-4.6); Glucose 75 mg/dL (65-115); Lipase 48 U/L (13-60); Osmolality Calculated 279 mOsm/kg (285-295); Sodium 136 mmol/L (136-145); Total Bilirubin 3.5 mg/dL (0.15-1.2); Total Protein 7.8 g/dL (6.6-8.7)
[2021-09-23 13:35] LABS: Anion Gap 32.2 (5-19); Potassium 3.2 mmol/L (3.5-5.1)
--- NOTE | 2021-09-23 14:15 | W.ED.ABDPA2 ---
HPI - Abdominal Pain General: Chief Complaint: Abdominal Pain Stated Complaint: stomach pain Time Seen by Provider: 09/23/21 14:01 Source: patient Mode of arrival: ambulatory Limitations: no limitations History of Present Illness: 50-year-old female with a history of alcohol gastritis along with chronic vomiting she states she had increased vomiting over the last 2 days and is feeling dehydrated she got been able to tolerate anything p.o. She had some diffuse abdominal cramping she rates a 6 out of 10 denies any diarrhea denies any worsening improving factors. Associated Symptoms: Reports nausea and vomiting; Denies chills, dysuria and fever(s) Related Data: Date of Last Menstrual Period: 05/06/20 Review of Systems Const: Denies: fever(s), chills, body aches or change in appetite Eyes: Denies: blurry vision or eye discomfort ENMT: Denies: throat pain or dental pain Card: Denies: chest pain Resp: Denies: dyspnea GI: Reports: abdominal pain, nausea and vomiting : Denies: dysuria Musc: Denies: neck pain or back pain Skin/Breast: Denies: rash Neuro: Denies: headache(s) Psych: Denies: depression Eric/Lymph: Denies: easy bruising All/Imm: Denies: urticaria PFSH ED PFSH: Medical History (Updated 09/23/21 @ 17:51 by Bruce Valdes MD) Alcoholism Anemia Carpal tunnel syndrome Chronic back pain Chronic pancreatitis Cirrhosis Enteritis GERD (gastroesophageal reflux disease) H. pylori infection Hepatitis A Sciatica Surgical History H/O rotator cuff surgery H/O: hysterectomy History of appendectomy History of cholecystectomy Family History Denies family history of Diabetes CAD (coronary artery disease) Dementia Social History Smoking and tobacco status: current every day smoker Alcohol intake: current Desire information about alcohol rehabilitation?: No Counseling given: Yes Last alcohol use date: 02/15/19 Female Reproductive History: Date of last menstrual period: 05/06/20 Physical Exam Const: COMMON NORMALS: no acute distress, patient oriented x3 and healthy appearing HENMT: COMMON NORMALS: normocephalic and atraumatic HEAD & SCALP: normocephalic and atraumatic Eye: COMMON NORMALS: Equal, round and reactive pupils present and EOMs intact bilaterally PUPIL: Yes Equal, round and reactive pupils present Neck/C-Spine: COMMON NORMALS: full ROM and supple Chest: COMMONS NORMALS: normal inspection of the chest and normal palpation of entire chest wall Resp: COMMON NORMALS: normal respiratory effort, No retractions, No use of accessory muscles and clear to auscultation bilaterally AUSCULTATION: clear to auscultation bilaterally Cardio: COMMON NORMALS: regular rate, regular rhythm and No murmurs present (Cardio) RATE: regular rate RHYTHM: regular rhythm GI: COMMON NORMALS: Normal to inspection, nondistended, normoactive bowel sounds present, Soft to palpation, non-tender and no masses PALPATION: Yes Soft to palpation Extremity: COMMON NORMALS: normal to inspection and full ROM Neuro: COMMON NORMALS: patient oriented x3, moves all extremities and no focal motor deficits Psych: COMMON NORMALS: mental status grossly normal, Normal thought process present and cooperative THOUGHT PROCESS: Normal thought process present Skin: COMMON NORMALS: no rashes or lesions noted and no wounds GENERAL SKIN EXAM: no rashes or lesions noted Course Vital Signs: Vital signs: Vital Signs Temperature 97.9 F 09/23/21 12:40 Pulse Rate 93 09/23/21 18:00 Respiratory Rate 13 09/23/21 18:00 Blood Pressure 101/62 09/23/21 18:00 Pulse Oximetry 97 09/23/21 18:00 Oxygen Delivery Me thod 09/23/21 12:40 MDM - Abdominal Pain Medical Decision Making Patient presents here with vomiting initial CMP did show an anion gap likely from dehydration it improved after IV fluids but her potassium dropped from 3.2-2.3 I do not believe she had that much of a drop here we will give her oral replacement recheck potassium she is stable for discharge we will get her follow-up with Dr. Hinds she also has a slightly elevated bilirubin she likely needs a scope in the future she is tolerated p.o. here. Lab Data : 09/23/21 12:50 09/23/21 17:45 Labs/Radiology: Radiology Impressions Abdomen/Pelvis CT 09/23/21 14:57 IMPRESSION: 1. Proximal ascending colon mild wall thickening with some surrounding edema may reflect a mild colitis in the appropriate clinical setting. 2. Right lower lobe atelectasis. 3. Hepatic steatosis. 4. Cholecystectomy. Laboratory Results WBC 5.1 10^3/uL (4.0-10.0) 09/23/21 12:50 RBC 2.52 10^6/uL (4.1-5.3) L 09/23/21 12:50 Hgb 10.4 g/dL (11.5-15.3) L 09/23/21 12:50 Hct 30.1 % (37.0-47.0) L 09/23/21 12:50 MCV 119.4 fl (81-99) H 09/23/21 12:50 MCH 41.3 pg (28.0-34.0) H 09/23/21 12:50 MCHC 34.6 g/dL (30.0-36.0) 09/23/21 12:50 RDW 16.0 % (12.1-15.1) H 09/23/21 12:50 Plt Count 95 10^3/cmm (130-400) L 09/23/21 12:50 MPV 11.1 fL (7.4-10.4) H 09/23/21 12:50 Neut % (Auto) 75.2 % 09/23/21 12:50 Lymph % (Auto) 19.1 % 09/23/21 12:50 [place] % (Auto) 4.3 % 09/23/21 12:50 Eos % (Auto) 0.2 % 09/23/21 12:50 Baso % (Auto) 0.8 % 09/23/21 12:50 Neut # (Auto) 3.83 10^3/uL (1.8-7.7) 09/23/21 12:50 Lymph # (Auto) 1.0 10^3/uL (0.8-4.8) 09/23/21 12:50 [place] # (Auto) 0.2 10^3/uL (0.2-0.9) 09/23/21 12:50 Eos # (Auto) 0.0 10^3/uL (0.0-0.8) 09/23/21 12:50 Baso # (Auto) 0.0 10^3/uL (0.0-0.1) 09/23/21 12:50 Nucleated RBC % (auto) 0 % 09/23/21 12:50 Nucleated RBCs # 0.0 /100WBC 09/23/21 12:50 PT 14.20 SECONDS (12.1-14.9) 09/23/21 12:50 INR 1.06 (0.8-1.2) 09/23/21 12:50 Sodium 136 mmol/L (136-145) 09/23/21 12:50 Sodium 141 mmol/L (136-145) 09/23/21 12:50 Potassium 3.2 mmol/L (3.5-5.1) L 09/23/21 17:45 Chloride 91 mmol/L (98-107) L 09/23/21 12:50 Chloride 106 mmol/L (98-107) 09/23/21 12:50 Carbon Dioxide 16 mmol/L (22-29) L 09/23/21 12:50 Carbon Dioxide 16 mmol/L (22-29) L 09/23/21 12:50 Anion Gap 21.3 (5-19) H 09/23/21 12:50 Anion Gap 32.2 (5-19) H 09/23/21 12:50 BUN 7 mg/dL (6-20) 09/23/21 12:50 BUN 9 mg/dL (6-20) 09/23/21 12:50 Creatinine 0.4 mg/dL (0.5-0.9) L 09/23/21 12:50 Creatinine 0.6 mg/dL (0.5-0.9) 09/23/21 12:50 GFR Calculation 105.0 mL/min (90-130) 09/23/21 12:50 GFR Calculation 167.6 mL/min (90-130) H 09/23/21 12:50 Glucose 45 mg/dL (65-115) L 09/23/21 12:50 Glucose 75 mg/dL (65-115) 09/23/21 12:50 Calculated Osmolality 279 mOsm/kg (285-295) L 09/23/21 12:50 Calculated Osmolality 287 mOsm/kg (285-295) 09/23/21 12:50 Calcium 6.3 mg/dL (8.5-10.5) L 09/23/21 12:50 Calcium 9.1 mg/dL (8.5-10.5) 09/23/21 12:50 Total Bilirubin 3.5 mg/dL (0.15-1.2) H 09/23/21 12:50 AST 234 U/L (0-32) H 09/23/21 12:50 ALT 58 U/L (0-33) H 09/23/21 12:50 Alkaline Phosphatase 267 IU/L (35-105) H 09/23/21 12:50 Total Protein 7.8 g/dL (6.6-8.7) 09/23/21 12:50 Albumin 3.5 g/dL (3.5-5.2) 09/23/21 12:50 Globulin 4.3 g/dL (1.3-4.6) 09/23/21 12:50 Lipase 48 U/L (13-60) 09/23/21 12:50 Ethyl Alcohol < 10 mg/dL (0-10) 09/23/21 12:50 Discharge Plan Discharge Patient Disposition: Home Clinical Impression: Vomiting, Hypokalemia Condition: Stable Prescriptions: New ondansetron 4 mg tablet,disintegrating 4 mg PO Q6H PRN (Reason: nausea and vomiting) Qty: 14 0RF potassium chloride 40 mEq/15 mL liquid 40 meq PO BID 5 Days Qty: 150 0RF No Action Combivent Respimat 20-100 mcg/actuation mist 1 puff INHALATION Q6H PRN (Reason: Bronchospasm) omeprazole 40 mg Capsule,Delayed Release(Dr/Ec) 40 mg PO BID albuterol sulfate [ProAir HFA] 90 mcg/actuation HFA aerosol inhaler 2 puff INHALATION Q4H PRN (Reason: Shortness Of Breath) aspirin [Aspir-81] 81 mg Tablet,Delayed Release (Dr/Ec) 81 mg PO DAILY PRN (Reason: Chest Pain) nitroglycerin [Nitrostat] 0.4 mg Tablet, Sublingual 0.4 mg SUBLINGUAL Q5M PRN (Reason: Chest Pain) Rx Instructions: do not exceed 3 doses per episode ondansetron 4 mg tablet,disintegrating 4 mg PO Q8H PRN (Reason: nausea and vomiting) Qty: 15 0RF sucralfate 100 mg/mL suspension 10 ml PO Q6H Rx Instructions: rx filled 09/21/21 11d/s (pt not started) famotidine 40 mg tablet 40 mg PO BEDTIME Rx Instructions: rx filled 09/21/21 30d/s (pt not started) potassium chloride 20 mEq tablet,ER particles/crystals 20 meq PO DAILY Rx Instructions: for 7 days rx filled 09/14/21 (pt not taking) magnesium oxide 400 mg (241.3 mg magnesium) tablet 400 mg PO DAILY Rx Instructions: for 7 days rx filled 09/14/21 (pt not taking) Discharge Orders: Discharge ED (Routine); Ordered 09/23/21 Ordered By: Bruce Valdes Referrals: Aditya Degroot DO [Primary Care Provider] - 1-3 days Renzo Hinds MD [Physician] - 1-3 days Discharge Diet: Advance as tolerated Discharge Activity: Resume usual activity Patient Instructions: Hypokalemia (ED), Acute Nausea and Vomiting (ED) Coding Level of Care Code ED Fabric Worker Supervisor for Shila Fwd Exam Comprehensive
[2021-09-23] MEDS: metoclopramide 5 mg/mL SDV 2 mL 10 MG IVP (14:18)
[2021-09-23] MEDS: morphine 4 mg/mL SDV 1 mL IVP ×2 (14:18→17:57)
[2021-09-23] MEDS: sodium chloride 0.9% 1,000 ML 999 ML IV ×2 (14:19→15:43)
[2021-09-23] MEDS: diphenhydrAMINE 50 mg/mL SDV 1mL IVP (14:19)
[2021-09-23 14:21] LABS: Alcohol Level < 10 mg/dL (0-10)
--- NOTE | 2021-09-23 14:57 | CTR_ITS ---
PROCEDURE INFORMATION: Exam: CT Abdomen And Pelvis Without Contrast Exam date and time: 09/23/2021 3:21 PM Age: 50 years old Clinical indication: Bloating; Abdominal pain; Generalized; Prior surgery; Surgery type: Hyster; Patient HX: Uterine cancer; Additional info: Abd pain TECHNIQUE: Imaging protocol: Computed tomography of the abdomen and pelvis without contrast. Radiation optimization: All CT scans at this facility use at least one of these dose optimization techniques: automated exposure control; mA and/or kV adjustment per patient size (includes targeted exams where dose is matched to clinical indication); or iterative reconstruction. COMPARISON: CT abdomen pelvis [facility] [id number] 07/27/2021 8:10 PM RADIATION DOSE METRICS: Total DLP (mGy-cm): 776.34 FINDINGS: Lungs: Right lower lobe atelectasis. Liver: Hepatic steatosis. Gallbladder and bile ducts: Cholecystectomy. Pancreas: Normal. No ductal dilation. Spleen: Normal. No splenomegaly. Adrenal glands: Normal. No mass. Kidneys and ureters: Normal. No hydronephrosis. Stomach and bowel: Proximal ascending colon mild wall thickening with some surrounding edema may reflect a mild colitis in the appropriate clinical setting. Appendix: No evidence of appendicitis. Intraperitoneal space: Unremarkable. No free air. No significant fluid collection. Vasculature: Unremarkable. No abdominal aortic aneurysm. Lymph nodes: Unremarkable. No enlarged lymph nodes. Urinary bladder: Unremarkable as visualized. Reproductive: Unremarkable as visualized. Bones/joints: Unremarkable. No acute fracture. Soft tissues: Unremarkable. CT/CT abdomen pelvis [facility] [id number] IMPRESSION: 1. Proximal ascending colon mild wall thickening with some surrounding edema may reflect a mild colitis in the appropriate clinical setting. 2. Right lower lobe atelectasis. 3. Hepatic steatosis. 4. Cholecystectomy.
[2021-09-23 15:51] LABS: INR 1.06 (0.8-1.2)
[2021-09-23 17:05] LABS: Anion Gap 21.3 (5-19); Blood Urea Nitrogen 7 mg/dL (6-20); Calcium 6.3 mg/dL (8.5-10.5); Carbon Dioxide 16 mmol/L (22-29); Chloride 106 mmol/L (98-107); Glomerular Filtration Rate 167.6 mL/min (90-130); Glucose 45 mg/dL (65-115); Osmolality Calculated 287 mOsm/kg (285-295); Sodium 141 mmol/L (136-145)
[2021-09-23 17:07] LABS: Potassium 2.3 mmol/L (3.5-5.1)
[2021-09-23] MEDS: ondansetron 2 mg/ML SDV 2 mL 4 MG IVP (17:56)
[2021-09-23 18:09] LABS: Potassium 3.2 mmol/L (3.5-5.1)
--- NOTE | 2021-09-27 12:31 | DCPLANNER ---
Addendum entered by Ana Maria Amaya 10/28/21 11:52: Patients appointment was cancelled Addendum entered by Ana Maria Amaya 10/14/21 11:51: Patient has a follow up appointment scheduled for Tuesday, October 19, 2021 at 9:[address] Hinds at [facility]. Clinic will call patient with appointment information. Original Note: door manager had message to schedule a follow up appointment for patient with [facility]. door manager sent patients information to the front office staff at [facility]. Patients information will be printed and reviewed. Clinic will call patient with appointment information.
== END 2021-09-23 18:40 | disposition home or self-care (01) ==
PROVIDERS: Emergency Provider Emergency Medicine; PCP Family Medicine
DX: R11.11 Vomiting without nausea (principal); E87.6 Hypokalemia; Z79.82 Long term (current) use of aspirin; F17.210 Nicotine dependence, cigarettes, uncomplicated
CPT/HCPCS: 74176; 80048; 80053; 80307; 83690; 84132; 85025; 85610; 96361; 96374; 96375; 96376; 99285; J1200; J2270; J2405; J2765; J7030

== ENCOUNTER 2021-09-28 16:26 | Inpatient (IN) | payer MEDICAID, SELFPAY ==
[2021-09-28 16:52] VITALS: BP 113/78; PULSE 116; RESP 20; TEMP 36.7; O2SAT 98; BMI 29.8
--- NOTE | 2021-09-28 19:07 | ED_ITS ---
HPI - General Adult General: Chief complaint: Nausea/Vomiting/Diarrhea Stated complaint: N/V Abd pains, feet hurt and legs Time Seen by Provider: 09/28/21 18:50 History of Present Illness: Patient is a 50-year-old female with history of chronic alcohol dependence presenting to the emergency room with complaints of significant abdominal pain, nausea/vomiting. Patient tells me that her last drink was earlier today. For the last 3-month, patient has been having worsening abdominal pain. Patient reports significant nausea vomiting. Patient also reports marijuana use. Patient denies any diarrhea melena hematochezia. Patient has not had any hematemesis. On 09/23/2021, patient presented to the emergency room for evaluation. That time, patient was diagnosed with enterocolitis and hypokalemia. Patient was discharged from the hospital. Since then, patient tells me that she has still not been able to tolerate p.o. Patient denies any fever/chills, cough, runny nose, sore throat, chest pain, shortness breath or palpitation Onset:3 months ago Duration:3 months Location:home Severity:moderate Associated symptoms: Reports malaise, nausea and vomiting; Deny chest pain, dyspnea, rash or palpitations Review of Systems Const: Reports: malaise and other (+generalized weakness); Denies: fever(s) or chills Eyes: Denies: change in vision ENMT: Denies: mouth pain Card: Denies: chest pain or palpitations Resp: Denies: dyspnea or non-productive cough GI: Reports: abdominal pain, nausea and vomiting; Denies: diarrhea : Denies: dysuria Musc: Denies: extremity pain Skin/Breast: Denies: rash or new lesions Neuro: Denies: weakness in extremities Psych: Reports: other (Normal mood) Eric/Lymph: Denies: easy bruising PFSH ED PFSH: Medical History Alcoholism Anemia Carpal tunnel syndrome Chronic back pain Chronic pancreatitis Cirrhosis Enteritis GERD (gastroesophageal reflux disease) H. pylori infection Hepatitis A Sciatica Surgical History H/O rotator cuff surgery H/O: hysterectomy History of appendectomy History of cholecystectomy Family History Denies family history of Diabetes CAD (coronary artery disease) Dementia Social History Smoking and tobacco status: current every day smoker Alcohol intake: current Desire information about alcohol rehabilitation?: No Counseling given: Yes Last alcohol use date: 02/15/19 Physical Exam Const: COMMON NORMALS: alert HENMT: COMMON NORMALS: atraumatic HEAD & SCALP: atraumatic MOUTH: moist mucous membranes abnormal Eye: COMMON NORMALS: EOMs intact bilaterally and conjunctivae normal CONJUN CTIVA: Yes conjunctivae normal Neck/C-Spine: COMMON NORMALS: full ROM and supple Resp: COMMON NORMALS: normal respiratory effort and clear to auscultation bilaterally AUSCULTATION: clear to auscultation bilaterally Cardio: RATE: tachycardic GI: COMMON NORMALS: Soft to palpation PALPATION: Yes Soft to palpation OTHER: +Abdominal distention, mild diffuse abdominal tenderness palpation. NO guarding rebound, guarding, rigidity. No CVA tenderness to percussion. Neg Pena/Neg [place]'s point tenderness, no suprabupic tenderness to palpation. Extremity: COMMON NORMALS: full ROM Neuro: SENSORIUM/ORIENTATION: Yes alert MOTOR EXAM: No Abnormal motor strength present and Other motor observations present (no focal motor deficits) Psych: COMMON NORMALS: speech normal SPEECH: Yes normal speech MOOD & AFFECT: Yes euthymic mood Course Vital Signs: Vital signs: Vital Signs Temperature 98.1 F 09/28/21 16:52 Pulse Rate 116 H 09/28/21 16:52 Respiratory Rate 20 H 09/28/21 16:52 Blood Pressure 113/78 09/28/21 16:52 Pulse Oximetry 98 09/28/21 16:52 Oxygen Delivery Me thod 09/28/21 16:52 [facility] - General Adult Medical Decision Making Patient is a 51-year-old female with a history of alcohol dependence presenting to the emergency room with complaints of 3-month of worsening abdominal pain, nausea vomiting. Patient on physical exam appears to be dry. Patient is tachycardic. Has diffuse abdominal tenderness without guarding rebound tenderness. Patient has a hemoglobin 9.6 today. Initial glucose of 38. Patient received amp of D50 has been able to tolerate p.o. Even with a glucose 38, patient did not exhibit any change in mental status. Suspect chronic hypoglycemia. Patient has a potassium of 2.7. Labs consistent with alcoholic ketoacidosis. Patient received thiamine, folic acid, 2 L of LR, and potassium replacement. CT abdomen showed progression of ileitis with colitis. Patient received Zofran pain control in the ER. Disposition: admission Lab Data : 09/28/21 19:35 09/28/21 19:35 Radiology Impressions Abdomen/Pelvis CT 09/28/21 20:08 IMPRESSION: 1. Ileitis and colitis. This has progressed compared with 09/23/2021 2. Severe fatty liver Laboratory Results WBC 5.3 10^3/uL (4.0-10.0) 09/28/21 19:35 RBC 2.33 10^6/uL (4.1-5.3) L 09/28/21 19:35 Hgb 9.6 g/dL (11.5-15.3) L 09/28/21 19:35 Hct 27.9 % (37.0-47.0) L 09/28/21 19:35 MCV 119.7 fl (81-99) H 09/28/21 19:35 MCH 41.2 pg (28.0-34.0) H 09/28/21 19:35 MCHC 34.4 g/dL (30.0-36.0) 09/28/21 19:35 RDW 18.2 % (12.1-15.1) H 09/28/21 19:35 Plt Count 133 10^3/cmm (130-400) 09/28/21 19:35 MPV 10.4 fL (7.4-10.4) 09/28/21 19:35 Neut % (Auto) 61.8 % 09/28/21 19:35 Lymph % (Auto) 27.4 % 09/28/21 19:35 [place] % (Auto) 8.3 % 09/28/21 19:35 Eos % (Auto) 0.9 % 09/28/21 19:35 Baso % (Auto) 0.8 % 09/28/21 19:35 Neut # (Auto) 3.29 10^3/uL (1.8-7.7) 09/28/21 19:35 Lymph # (Auto) 1.5 10^3/uL (0.8-4.8) 09/28/21 19:35 [place] # (Auto) 0.4 10^3/uL (0.2-0.9) 09/28/21 19:35 Eos # (Auto) 0.1 10^3/uL (0.0-0.8) 09/28/21 19:35 Baso # (Auto) 0.0 10^3/uL (0.0-0.1) 09/28/21 19:35 Nucleated RBC % (auto) 0.9 % 09/28/21 19:35 Nucleated RBCs # 0.1 /100WBC 09/28/21 19:35 Sodium 139 mmol/L (136-145) 09/28/21 19:35 Potassium 2.7 mmol/L (3.5-5.1) L* 09/28/21 19:35 Chloride 91 mmol/L (98-107) L 09/28/21 19:35 Carbon Dioxide 16 mmol/L (22-29) L 09/28/21 19:35 Anion Gap 34.7 (5-19) H 09/28/21 19:35 BUN 9 mg/dL (6-20) 09/28/21 19:35 Creatinine 0.7 mg/dL (0.5-0.9) 09/28/21 19:35 GFR Calculation 87.9 mL/min (90-130) L 09/28/21 19:35 Glucose 38 mg/dL (65-115) L* 09/28/21 19:35 POC Glucose 137 mg/dL (70-110) H 09/28/21 20:57 Calculated Osmolality 283 mOsm/kg (285-295) L 09/28/21 19:35 Calcium 9.0 mg/dL (8.5-10.5) 09/28/21 19:35 Total Bilirubin 3.2 mg/dL (0.15-1.2) H 09/28/21 19:35 AST 250 U/L (0-32) H 09/28/21 19:35 ALT 63 U/L (0-33) H 09/28/21 19:35 Alkaline Phosphatase 284 U/L (35-105) H 09/28/21 19:35 Total Protein 7.8 g/dL (6.6-8.7) 09/28/21 19:35 Albumin 3.7 g/dL (3.5-5.2) 09/28/21 19:35 Globulin 4.1 g/dL (1.3-4.6) 09/28/21 19:35 Lipase 77 U/L (13-60) H 09/28/21 19:35 Salicylates < 0.3 mg/dL (3-10) L 09/28/21 19:35 Acetaminophen < 5.0 ug/mL (10-30) L 09/28/21 19:35 Serum Ketones Positive (Negative) H 09/28/21 19:35 Imaging Data Other Imaging: Radiologist's impression: [employer] [place] [address] CT Scan Report Signed Patient: Melissa Portillo Unit #: [id number] : 1970 Age/Sex: 50 / F ADM Date: 09/28/21 Loc: ER Room/Bed: Attending Dr: Ordering Provider/Ordering MD: Mike Toscano MD Date of Service: 09/28/21 Procedure(s): CT abdomen pelvis w con* [id number] Accession Number(s): [id number] Report Number: [id number] PROCEDURE INFORMATION: Exam: CT Abdomen And Pelvis With Contrast Exam date and time: 09/28/2021 9:09 PM Age: 50 years old Clinical indication: Abdominal pain; Prior surgery; Surgery date: 6+ months; Surgery type: Gb, hyst, appx; Additional info: Diffuse abd pain, low blood sugar, TECHNIQUE: Imaging protocol: Computed tomography of the abdomen and pelvis with contrast. Radiation optimization: All CT scans at this facility use at least one of these dose optimization techniques: automated exposure control; mA and/or kV adjustment per patient size (includes targeted exams where dose is matched to clinical indication); or iterative reconstruction. Contrast material: OMNIPAQUE 350; Contrast volume: 80 ml; Contrast route: INTRAVENOUS (IV);? COMPARISON: CT abdomen pelvis wo con [id number] 09/23/2021 3:21 PM RADIATION DOSE METRICS: Total DLP (mGy-cm): 742.59 FINDINGS: Diaphragm: There is a small hiatal hernia. Liver: There is a diffuse decrease in hepatic parenchymal density, consistent with severe fatty infiltration. There is no focal abnormality within the liver. There is moderate enlargement of the liver. Liver measures 22 cm in height. Gallbladder and bile ducts: There has been a cholecystectomy. Common bile duct is prominent measuring up to 13 mm. Pancreas: The pancreas is normal. Spleen: The spleen is normal. Adrenal glands: The adrenal glands are normal. Kidneys and ureters: The kidneys are normal. There is no evidence of hydronephrosis. There is no evidence of renal or ureteral calcifications. Stomach and bowel: There are postsurgical changes of partial sigmoidectomy not significantly changed. There is abnormal thickening of the distal ileum and of the ascending and proximal half of the transverse colon consistent with ileitis and colitis. Findings could be due to inflammatory bowel disease. Correlate with clinical findings. There is no evidence of intestinal obstruction. Appendix: Not identified Intraperitoneal space: There is no evidence of free intraperitoneal fluid. Vasculature: The aorta is normal. Lymph nodes: There are numerous small periaortic lymph nodes. There is no evidence of lymphadenopathy. Urinary bladder: Unremarkable as visualized. Reproductive: There has been a hysterectomy. Bones/joints: There is mild lumbar scoliosis concave towards the left. Soft tissues: Unremarkable. CT/CT abdomen pelvis w con* [id number] IMPRESSION: 1. Ileitis and colitis. This has progressed compared with 09/23/2021 2. Severe fatty liver ? Dictated By: Sean Aguilera Signed By: Sean Aguilera Signed Date/Time: 09/28/212204 DD/ 08 Discharge Plan Discharge Patient Disposition: Admitted As Inpatient Clinical Impression: Alcoholic ketoacidosis, Abdominal pain, Hypokalemia, Hypoglycemia, Alcohol dependence Condition: Stable Coding Level of Care Code ED Senior Grant Writer for Chg Fwd Exam Comprehensive
[2021-09-28 19:26] VITALS: BP 111/74; PULSE 115; RESP 22; O2SAT 95
[2021-09-28 19:38] LABS: Basophils % 0.8 %; Eosinophils # 0.1 10^3/uL (0.0-0.8); Eosinophils % 0.9 %; Hematocrit 27.9 % (37.0-47.0); Hemoglobin 9.6 g/dL (11.5-15.3); Lymphocytes # 1.5 10^3/uL (0.8-4.8); Lymphocytes % 27.4 %; Mean Corpuscular HGB Conc 34.4 g/dL (30.0-36.0); Mean Corpuscular Hemoglobin 41.2 pg (28.0-34.0); Mean Corpuscular Volume 119.7 fl (81-99); Mean Platelet Volume 10.4 fL (7.4-10.4); Monocytes # 0.4 10^3/uL (0.2-0.9); Monocytes % 8.3 %; Neutrophils # 3.29 10^3/uL (1.8-7.7); Neutrophils % 61.8 %; Nucleated Red Blood Cells # 0.1 /100WBC; Nucleated Red Blood Cells % 0.9 %; Platelet Count 133 10^3/cmm (130-400); Red Blood Count 2.33 10^6/uL (4.1-5.3); Red Cell Distribution Width 18.2 % (12.1-15.1); White Blood Count 5.3 10^3/uL (4.0-10.0)
[2021-09-28 19:56] VITALS: BP 124/81; PULSE 102; RESP 20; O2SAT 97
[2021-09-28 20:02] LABS: Alanine Aminotransferase 63 U/L (0-33); Albumin Level 3.7 g/dL (3.5-5.2); Alkaline Phosphatase 284 U/L (35-105); Anion Gap 34.7 (5-19); Aspartate Amino Transferase 250 U/L (0-32); Blood Urea Nitrogen 9 mg/dL (6-20); Carbon Dioxide 16 mmol/L (22-29); Chloride 91 mmol/L (98-107); Globulin 4.1 g/dL (1.3-4.6); Glomerular Filtration Rate 87.9 mL/min (90-130); Lipase 77 U/L (13-60); Osmolality Calculated 283 mOsm/kg (285-295); Sodium 139 mmol/L (136-145); Total Bilirubin 3.2 mg/dL (0.15-1.2); Total Protein 7.8 g/dL (6.6-8.7)
[2021-09-28 20:05] LABS: Glucose 38 mg/dL (65-115); Potassium 2.7 mmol/L (3.5-5.1)
--- NOTE | 2021-09-28 20:08 | CTR_ITS ---
PROCEDURE INFORMATION: Exam: CT Abdomen And Pelvis With Contrast Exam date and time: 09/28/2021 9:09 PM Age: 50 years old Clinical indication: Abdominal pain; Prior surgery; Surgery date: 6+ months; Surgery type: Gb, hyst, appx; Additional info: Diffuse abd pain, low blood sugar, TECHNIQUE: Imaging protocol: Computed tomography of the abdomen and pelvis with contrast. Radiation optimization: All CT scans at this facility use at least one of these dose optimization techniques: automated exposure control; mA and/or kV adjustment per patient size (includes targeted exams where dose is matched to clinical indication); or iterative reconstruction. Contrast material: OMNIPAQUE 350; Contrast volume: 80 ml; Contrast route: INTRAVENOUS (IV); COMPARISON: CT abdomen pelvis wo con [id number] 09/23/2021 3:21 PM RADIATION DOSE METRICS: Total DLP (mGy-cm): 742.59 FINDINGS: Diaphragm: There is a small hiatal hernia. Liver: There is a diffuse decrease in hepatic parenchymal density, consistent with severe fatty infiltration. There is no focal abnormality within the liver. There is moderate enlargement of the liver. Liver measures 22 cm in height. Gallbladder and bile ducts: There has been a cholecystectomy. Common bile duct is prominent measuring up to 13 mm. Pancreas: The pancreas is normal. Spleen: The spleen is normal. Adrenal glands: The adrenal glands are normal. Kidneys and ureters: The kidneys are normal. There is no evidence of hydronephrosis. There is no evidence of renal or ureteral calcifications. Stomach and bowel: There are postsurgical changes of partial sigmoidectomy not significantly changed. There is abnormal thickening of the distal ileum and of the ascending and proximal half of the transverse colon consistent with ileitis and colitis. Findings could be due to inflammatory bowel disease. Correlate with clinical findings. There is no evidence of intestinal obstruction. Appendix: Not identified Intraperitoneal space: There is no evidence of free intraperitoneal fluid. Vasculature: The aorta is normal. Lymph nodes: There are numerous small periaortic lymph nodes. There is no evidence of lymphadenopathy. Urinary bladder: Unremarkable as visualized. Reproductive: There has been a hysterectomy. Bones/joints: There is mild lumbar scoliosis concave towards the left. Soft tissues: Unremarkable. CT/CT abdomen pelvis w con* [id number] IMPRESSION: 1. Ileitis and colitis. This has progressed compared with 09/23/2021 2. Severe fatty liver
[2021-09-28] MEDS: morphine 4 mg/mL SDV 1 mL IVP ×2 (20:19→22:46)
[2021-09-28] MEDS: sodium chloride 0.9% 1,000 ML 999 ML IV (20:20)
[2021-09-28] MEDS: dextrose 50% syringe 50 mL IVP (20:20)
[2021-09-28] MEDS: ondansetron 2 mg/ML SDV 2 mL 4 MG IVP (20:20)
[2021-09-28] MEDS: dextrose 5%-sod chloride 0.9% 1,000 ML 125 ML IV (20:25)
[2021-09-28 20:26] VITALS: BP 121/77; PULSE 117; RESP 17; O2SAT 96
[2021-09-28 20:28] LABS: Ketone (Acetest) Serum Positive (Negative)
[2021-09-28 20:59] LABS: Acetaminophen < 5.0 ug/mL (10-30); Salicylate < 0.3 mg/dL (3-10)
[2021-09-28 21:00] LABS: Glucose Point of Care 137 mg/dL (70-110)
[2021-09-28] MEDS: iohexol 350 mg/mL 100 mL Btl IV (21:11)
--- NOTE | 2021-09-28 21:27 | USR_ITS ---
PROCEDURE INFORMATION: Exam: US Abdomen; Limited Exam date and time: 09/28/2021 11:12 PM Age: 50 years old Clinical indication: Acute; Prior surgery; Surgery type: Laparascopic cholecystectomy 2000; Appendectomy in youth; Complete hysterectomy; Patient HX: Patient experiencing n+v and diffuse abdominal pain; S/P lapchole 2000; Additional info: Acute ascending cholangitis TECHNIQUE: Imaging protocol: Real time ultrasound of the abdomen with image documentation. Limited exam focused on the region of clinical interest. COMPARISON: US Abdomen* [id number] 01/31/2018 1:54 AM FINDINGS: Liver: There is diffusely increased echogenicity in the liver consistent with fatty change. There is moderate enlargement of the liver. Liver is 24 cm in height. Gallbladder: There has been a cholecystectomy. Biliary ducts: Common bile duct measures 6 mm. Pancreas: Pancreas is obscured by intestinal gas and not visualized on this examination. Right kidney: Normal cortical thickness and echogenicity. No hydronephrosis. Right kidney measures 12.0 x 4.0 x 4.1 cm. Aorta: The abdominal aorta has a normal diameter without evidence of aneurysm. Inferior vena cava: IVC is patent. US/US gall bladder [id number] IMPRESSION: Severe fatty liver
--- NOTE | 2021-09-28 22:10 | P.HP_ITS ---
Providers/Chief Complaint Primary Care Provider: Aditya Degroot DO Chief Complaint: N/V Abd pains, feet hurt and legs History of Present Illness Melissa Portillo is a 50 year old female with a past medical history of alcoholism, chronic pancreatitis, Alcoholic Liver disease, history of H. pylori, history of chronic abdominal pain, history of alcoholic gastritis, who presents to [facility] due to a 3-month history of abdominal pain, bloating, nausea, vomiting, decreased stooling. Patient tells me that she has had a 3-month history of abdominal pain, diffuse, abdominal bloating, nausea, vomiting, decreased stooling. She tells that what has suddenly changes that her abdomen is much more distended, she feels much bloated, she is not able to keep down solids and liquids, she had a decreased appetite. She does admit drinking alcohol once a day, she has up to 2 glasses of vodka a day, no history of alcohol withdrawal, no history of blacking out, denies a history of hepatitis C. She tells me also she has not been eating that much, she also reports marijuana use. No fevers, no chills, no recent antibiotic use, no history of C. difficile, no history of ulcerative colitis or Crohn's disease. No bloody or black stools, no hematemesis, no history of esophageal varices. Review of Systems Const: Denies: fever(s) Card: Denies: chest pain Resp: Denies: dyspnea GI: Reports: abdominal pain, nausea, vomiting and heartburn; Denies: hematemesis, coffee ground emesis, diarrhea, constipation, excessive flatus or melena : Denies: flank pain, difficulty voiding or dysuria Musc: Denies: back pain Neuro: Denies: headache(s) Medications/Allergies Home Medications Medication Instructions Recorded Confirmed Last Taken Type albuterol sulfate 90 mcg/actuation 2 puff inhalation Q4H PRN 11/29/20 09/28/21 Unknown History aerosol inhaler (ProAir HFA) Shortness Of Breath nitroglycerin 0.4 mg sublingual 0.4 mg sublingual Q5M PRN Chest 06/01/21 09/28/21 Unknown History tablet (Nitrostat) Pain famotidine 40 mg tablet 40 mg PO BEDTIME 09/23/21 09/28/21 09/27/21 History Allergies Allergy/AdvReac Type Severity Reaction Status Date / Time codeine Allergy ALGY-Hives Verified 09/28/21 19:53 ketorolac [From Toradol] Allergy ALGY-Rash Verified 09/28/21 19:53 naproxen [From Naprosyn] Allergy ADR-Vomitin Verified 09/28/21 19:53 g prochlorperazine Allergy ALGY-Swell Verified 09/28/21 19:53 [From Compazine] Lip/Tongue/Throat PFSH Acute PFSH: Medical History (Updated 09/28/21 @ 22:16 by Jose Streeter MD) Alcoholism Anemia Carpal tunnel syndrome Chronic back pain Chronic pancreatitis Cirrhosis Enteritis GERD (gastroesophageal reflux disease) H. pylori infection Hepatitis A Sciatica Surgical History H/O rotator cuff surgery H/O: hysterectomy History of appendectomy History of cholecystectomy Family History Denies family history of Diabetes CAD (coronary artery disease) Dementia Social History Smoking and tobacco status: current every day smoker Alcohol intake: current Desire information about alcohol rehabilitation?: No Counseling given: Yes Last alcohol use date: 02/15/19 Vitals/I&O/Wt Last Vital Signs Temp 98.1 F 09/28/21 16:52 Pulse 116 H 09/28/21 16:52 Resp 20 H 09/28/21 16:52 BP 113/78 09/28/21 16:52 Pulse Ox 98 09/28/21 16:52 O2 Del Method 09/28/21 16:52 Weight last 48 hrs Weight 78.925 kg Physical Exam 2 Const: COMMON NORMALS: no acute distress and patient oriented x3 HENMT: COMMON NORMALS: normocephalic HEAD & SCALP: normocephalic Eye: COMMON NORMALS: Equal, round and reactive pupils present and EOMs intact bilaterally Neck/C-Spine: COMMON NORMALS: no JVD Resp: COMMON NORMALS: normal respiratory effort, No retractions, No use of accessory muscles and clear to auscultation bilaterally AUSCULTATION: clear to auscultation bilaterally Cardio: COMMON NORMALS: no JVD, regular rate, regular rhythm, S1 normal heart sound present and S2 normal heart sound present RATE: regular rate RHYTHM: regular rhythm HEART SOUNDS: S1 normal heart sound present and S2 normal heart sound present GI: PALPATION: Yes Soft to palpation and Yes No hepatosplenomegaly present : OTHER: Abdomen soft, distended, good bowel sounds in all quadrants, diffuse tenderness, no guarding, no rebound, no rigidity Extremity: COMMON NORMALS: capillary refill normal, no clubbing, cyanosis or edema, no calf tenderness and no pedal edema Neuro: COMMON NORMALS: patient oriented x3, CN's II-XII intact bilaterally, moves all extremities and no focal motor deficits Psych: COMMON NORMALS: mental status grossly normal Data : 09/28/21 19:35 09/28/21 19:35 A&P Assessment and plan (1) Alcoholic ketoacidosis: Status: Acute (2) Hypokalemia: Status: Acute (3) Abdominal pain: Status: Acute (4) Hypoglycemia: Status: Acute (5) Vomiting: Status: Acute (6) Intractable nausea and vomiting: Status: Acute (7) Cannabis hyperemesis syndrome concurrent with and due to cannabis abuse: Status: Acute (8) Alcohol withdrawal: Status: Acute (9) Ileitis: Status: Acute Plan Alcoholic ketosis -Gentle IV fluids -Awaiting lactic acid, magnesium, phosphorus, lactic acid -Currently no focus of infection Alcohol withdrawal -[facility] protocol Marijuana hyperemesis syndrome, nausea control Dehydration, as above Hypokalemia, potassium replacement Ileitis and colitis, bowel rest, n.p.o., IV fluids -She has had a history of partial sigmoidectomy -Likely needs investigation for Crohn's disease or ulcerative colitis, saw general surgery for EGD and colonoscopy, has not followed up yet -Has a history of H. pylori in the past, will reorder stool studies Alcohol dependence Anemia, no history of GI bleed, no bloody or black stools, iron studies, B12, folate Full code Lovenox for DVT prophylaxis Attestations Medical Necessity Statement*: Patient requires hospitalization for alcohol withdrawal, anemia, increased anion gap metabolic acidosis, hypokalemia, alcoholic ketosis, hyperglycemia Coding Level of Care Code Acute Forming Operator for [facility] Fwd Diagnoses Alcoholic ketoacidosis E87.2 Hypokalemia E87.6 Abdominal pain R10.9 Hypoglycemia E16.2 Vomiting R11.10 Intractable nausea and vomiting R11.2 Cannabis hyperemesis syndrome concurrent with and due to cannabis abuse F12.188 Alcohol withdrawal F10.939 Ileitis K52.9
[2021-09-28 22:23] LABS: ABG PCO2 23.1 mmHg (35-45); ABG PH Result 7.44 (7.35-7.45); Arterial Blood Gas Hematocrit 27.7 % (37-47); Base Excess ABG -7.1 mmol/L (-2.0-2.0); Blood Gas Allen Test Pos; Blood Gas Sample Type Arterial; HCO3 ABG 15.8 mmol/L (22-26); PO2 ABG 88.4 mmHg (80.0-100.0)
[2021-09-28 22:24] LABS: Blood Gas Operator Identificat WALCI; Blood Gas Sample Site Radial, left
[2021-09-28 22:24] LABS: Urine Appearance Clear (CLEAR); Urine Color Amber (Yellow); pH Urine 6 (5-7)
[2021-09-28 22:25] LABS: Add Urine Microscopic? YES; Bilirubin Urine 1+ (Negative); Blood Urine Neg (Negative); Glucose Urine UA Norm (Normal); Ketones Urine 3+ (Negative); Leukocyte Esterase Urine Negative (Negative); Nitrate Urine Negative (Negative); Protein Urine Neg (Negative); Urobilinogen Urine 4+ mg/dL (Negative)
[2021-09-28 22:26] VITALS: BP 101/63; PULSE 107; RESP 20
[2021-09-28 22:28] LABS: Amphetamines Screen Urine Negative (Negative); Barbiturates Screen Urine Negative (Negative); Benzodiazepines Screen Urine Negative (Negative); Cocaine Screen Urine Negative (Negative); Opiate Screen Urine Positive (Negative); PCP Screen Urine Negative (Negative); RBC Urine 0-4 /hpf (0-2); THC Screen Urine Negative (Negative); WBC Urine 0-4 /hpf (0-5)
[2021-09-28 22:29] LABS: Add Urine Culture? Yes; Bacteria Urine 2+ /hpf
[2021-09-28 22:39] LABS: Lactate (Lactic Acid level) 2.5 mmol/L (0.5-2.2)
[2021-09-28 22:40] LABS: Erythrocyte Sedimentation Rate 9 mm/hr (0-15)
[2021-09-28 22:48] LABS: Hepatitis A Antibody IgM Non-Reactive (Nonreactive); Hepatitis B Core IgM Non-Reactive (Nonreactive); Hepatitis B Surface Antigen Non-Reactive (Nonreactive); Hepatitis C Virus Antibody Non-Reactive (Nonreactive); Procalcitonin 0.38 ng/mL (0-0.5)
[2021-09-28] MEDS: lactated ringers 1,000 ML 999 ML IV (22:50)
[2021-09-28 22:59] LABS: Alcohol Level 124 mg/dL (0-10); C Reactive Protein 16.5 mg/L (0.0-4.9); Magnesium 1.3 mg/dL (1.7-2.3); Phosphorus 2.6 mg/dL (2.5-4.5); Total Bilirubin 3.1 mg/dL (0.15-1.2)
[2021-09-28 23:08] LABS: Estmated Average Glucose 59; HIV 1 & 2 Antibody Non-Reactive (Non-Reactiv); HIV 1 & 2 Antigen Non-Reactive (Non-Reactiv); Hemoglobin A1C 3.7 % (4.0-6.0)
[2021-09-28] MEDS: lidocaine 1% 5 ML in potassium chloride premix 100 ML 25 ML IV (23:16)
[2021-09-29] VITALS (46 sets, daily range): BP systolic 82–151; BP diastolic 51–100; PULSE 73–149; RESP 14–29; TEMP 36.7–37.5; O2SAT 88–99; BMI 30.4
[2021-09-29 00:40] LABS: Glucose Point of Care 62 mg/dL (70-110)
[2021-09-29 00:41] LABS: Ferritin 544 ng/mL (15-150); Gamma Glutamyl Transferase 705 U/L (5-36); Iron 142 ug/dL (37-145)
[2021-09-29 00:57] LABS: Folate Level 3.3 ng/mL (4.8-37.3); Vitamin B12 672 pg/mL (232-1245)
[2021-09-29] MEDS: pantoprazole 40 mg SDV IVP (01:29)
[2021-09-29] MEDS: morphine 4 mg/mL SDV 1 mL 2 MG IVP ×4 (01:30→14:31)
[2021-09-29 01:31] LABS: Glucose Point of Care 65 mg/dL (70-110)
[2021-09-29] MEDS: enoxaparin 40 mg/0.4 mL Syringe SUBCUT (01:31)
[2021-09-29] MEDS: dextrose 50% syringe 50 mL IVP (01:31)
[2021-09-29 02:08] LABS: Glucose Point of Care 189 mg/dL (70-110)
[2021-09-29 02:11] LABS: Basophils % 0.7 %; Eosinophils % 0.7 %; Hematocrit 24.2 % (37.0-47.0); Hemoglobin 8.3 g/dL (11.5-15.3); Lymphocytes # 0.6 10^3/uL (0.8-4.8); Lymphocytes % 13.1 %; Mean Corpuscular HGB Conc 34.3 g/dL (30.0-36.0); Mean Corpuscular Hemoglobin 41.3 pg (28.0-34.0); Mean Corpuscular Volume 120.4 fl (81-99); Mean Platelet Volume 10.4 fL (7.4-10.4); Monocytes # 0.6 10^3/uL (0.2-0.9); Monocytes % 12.7 %; Neutrophils # 3.24 10^3/uL (1.8-7.7); Neutrophils % 72.1 %; Nucleated Red Blood Cells # 0.1 /100WBC; Nucleated Red Blood Cells % 1.1 %; Platelet Count 122 10^3/cmm (130-400); Red Blood Count 2.01 10^6/uL (4.1-5.3); Red Cell Distribution Width 18.2 % (12.1-15.1); White Blood Count 4.5 10^3/uL (4.0-10.0)
[2021-09-29 02:24] LABS: INR 1.16 (0.8-1.2)
[2021-09-29 02:29] LABS: Ammonia 46 umol/L (11-51); C Reactive Protein 15.8 mg/L (0.0-4.9); Lactate (Lactic Acid level) 2.9 mmol/L (0.5-2.2)
[2021-09-29 02:31] LABS: Alanine Aminotransferase 54 U/L (0-33); Albumin Level 3.2 g/dL (3.5-5.2); Alkaline Phosphatase 256 U/L (35-105); Anion Gap 27.8 (5-19); Aspartate Amino Transferase 216 U/L (0-32); Blood Urea Nitrogen 7 mg/dL (6-20); Calcium 8.3 mg/dL (8.5-10.5); Carbon Dioxide 18 mmol/L (22-29); Chloride 91 mmol/L (98-107); Globulin 3.7 g/dL (1.3-4.6); Glomerular Filtration Rate 87.9 mL/min (90-130); Glucose 190 mg/dL (65-115); Magnesium 1.1 mg/dL (1.7-2.3); Osmolality Calculated 281 mOsm/kg (285-295); Phosphorus 1.6 mg/dL (2.5-4.5); Sodium 134 mmol/L (136-145); Total Bilirubin 3.8 mg/dL (0.15-1.2); Total Protein 6.9 g/dL (6.6-8.7)
[2021-09-29] MEDS: magnesium sulfate premix 4 GM/100 ML PREMIX IV ×2 (02:32→12:51)
[2021-09-29] MEDS: ondansetron 2 mg/ML SDV 2 mL 4 MG IVP ×2 (02:36→09:21)
[2021-09-29 02:38] LABS: NT Pro B Type Natriuretic Pept 388 pg/mL (0-125)
[2021-09-29 02:39] LABS: Potassium 2.8 mmol/L (3.5-5.1)
[2021-09-29 02:40] LABS: Thyroid Stimulating Hormone 8.96 uIU/mL (0.27-4.20)
[2021-09-29 03:06] LABS: Glucose Point of Care 159 mg/dL (70-110)
[2021-09-29] MEDS: lidocaine 1% 5 ML in potassium chloride premix 100 ML 25 ML IV ×3 (03:32→16:18)
[2021-09-29 04:19] LABS: Glucose Point of Care 152 mg/dL (70-110)
[2021-09-29] MEDS: chlordiazePOXIDE 25 mg Capsule 50 MG PO ×3 (04:32→20:15)
[2021-09-29] MEDS: multivitamin therapeutic Tablet 1 TAB PO (08:18)
[2021-09-29] MEDS: folic acid 1 mg Tablet PO (08:18)
[2021-09-29] MEDS: thiamine 100 mg Tablet PO (08:18)
[2021-09-29] MEDS: dextrose 5%-sod chloride 0.9% 1,000 ML 125 ML IV ×2 (09:39→20:16)
[2021-09-29] MEDS: potassium chloride ER 20 mEq Tablet 40 MEQ PO (12:15)
--- NOTE | 2021-09-29 13:17 | PC.NURSE ---
C/O horrible abdominal pain and nausea. Dr. Zaldivar notifed this nurse patient has colitis and is going to have pain. gave t.o. for 60 mg solumedrolol now and increase dose of zofran to 8 mg
[2021-09-29] MEDS: ondansetron 2 mg/ML SDV 2 mL 8 MG IVP ×2 (14:31→18:31)
[2021-09-29] MEDS: metroNIDAZOLE IV 500 MG/100 ML PREMIX 100 MG IV ×2 (14:58→22:52)
[2021-09-29] MEDS: ciprofloxacin 400 MG/200 ML PREMIX 200 MG IV (15:12)
[2021-09-29 16:29] LABS: Oxygen Device ROOMAIR
[2021-09-29 18:06] LABS: Anion Gap 17.4 (5-19); Blood Urea Nitrogen 6 mg/dL (6-20); Calcium 8.3 mg/dL (8.5-10.5); Carbon Dioxide 23 mmol/L (22-29); Chloride 97 mmol/L (98-107); Glucose 171 mg/dL (65-115); Osmolality Calculated 280 mOsm/kg (285-295); Potassium 3.4 mmol/L (3.5-5.1); Sodium 134 mmol/L (136-145)
[2021-09-29] MEDS: morphine 4 mg/mL SDV 1 mL IVP ×2 (18:32→22:52)
[2021-09-29] MEDS: phosphorus 250 mg Tablet PO (20:15)
[2021-09-29 20:21] LABS: Glucose Point of Care 181 mg/dL (70-110)
--- NOTE | 2021-09-29 21:42 | P.PN_ITS ---
Subjective Subjective: Patient complains of abdominal pain and nausea. She states she is in a lot of pain. Vitals/I&O/Wt Last Vital Signs Temp 98.0 F 09/29/21 20:00 Pulse 80 09/29/21 21:00 Resp 28 H 09/29/21 21:00 BP 94/63 09/29/21 21:00 Pulse Ox 92 09/29/21 21:00 O2 Del Method 09/29/21 20:08 09/29/21 09/29/21 09/29/21 06:59 14:59 22:59 Intake Total 2905 / 2905 400 / 400 1816.667 / 2216.667 Output Total 250 / 250 200 / 200 Balance 2655 / 2655 400 / 400 1616.667 / 2016.667 Weight last 48 hrs Weight 80.467 kg Weight 78.925 kg Physical Exam Narrative: Patient appears much older than her stated age of 50. Mild to moderate distress due to abdominal pain Heart regular S1-S2 normal no murmur clicks gallops or rub Lungs diminished breath sounds throughout I did not appreciate any wheezes rales or rhonchi Abdomen soft distended diffuse abdominal tenderness. No rebound or rigidity Extremities no clubbing cyanosis or edema skin yellow discoloration Pupils no scleral icterus Data : 09/29/21 01:57 09/29/21 16:42 Micro: Microbiology 09/28/21 22:02 Blood Culture - Preliminary Blood SPECIMEN COLLECTED 09/28/21 22:00 Blood Culture - Preliminary Blood SPECIMEN COLLECTED A&P Assessment and plan (1) Alcoholic ketoacidosis: Status: Acute (2) Hypokalemia: Status: Acute (3) Abdominal pain: Status: Acute (4) Hypoglycemia: Status: Acute (5) Vomiting: Status: Acute (6) Intractable nausea and vomiting: Status: Acute (7) Cannabis hyperemesis syndrome concurrent with and due to cannabis abuse: Status: Acute (8) Alcohol withdrawal: Status: Acute (9) Ileitis: Status: Acute Plan Alcoholic ketosis -Gentle IV fluids -Magnesium phosphorus and potassium severely low. Aggressively replaced with IV. Repeat labs in a.m. -Currently no focus of infection Alcohol withdrawal -On Librium as needed Marijuana hyperemesis syndrome-uncertain of this diagnosis. Nausea could be from ileitis colitis. Have increased to 0 pram to 8 mg Dehydration, as above Ileitis and colitis, bowel rest, n.p.o., IV fluids-add IV antibiotics -She has had a history of partial sigmoidectomy -Likely needs investigation for Crohn's disease or ulcerative colitis, saw general surgery for EGD and colonoscopy, has not followed up yet. We discussed transfer to higher level of care. She will eventually need EGD colonoscopy and follow-up with the GI doctor. Unable to perform testing while acutely flamed. -Has a history of H. pylori in the past Alcohol dependence-serious discussion about need for abstinence. Patient was tearful and explained that she drinks due to stress. Talked about medications for anxiety and depression. Will hold off for now. Anemia, no history of GI bleed, no bloody or black stools, iron studies, B12, folate -likely due to alcoholism and folate deficiency TSH high. Newly diagnosed hypothyroidism. Not significant enough to require IV Lasix at this time. Full code Lovenox for DVT prophylaxis Attestations Medical Necessity Statement*: Patient requires hospitalization for alcohol wi thdrawal, anemia, increased anion gap metabolic acidosis, hypokalemia, alcoholic ketosis, hyperglycemia Coding Level of Care Code Acute Survey Instrument Operator for [facility] Fwd Diagnoses Alcoholic ketoacidosis E87.2 Hypokalemia E87.6 Abdominal pain R10.9 Hypoglycemia E16.2 Vomiting R11.10 Intractable nausea and vomiting R11.2 Cannabis hyperemesis syndrome concurrent with and due to cannabis abuse F12.188 Alcohol withdrawal F10.939 Ileitis K52.9
[2021-09-30] VITALS (60 sets, daily range): BP systolic 83–134; BP diastolic 43–93; PULSE 68–100; RESP 13–28; TEMP 36.6; O2SAT 67–100
[2021-09-30 00:17] LABS: Glucose Point of Care 226 mg/dL (70-110)
[2021-09-30] MEDS: enoxaparin 40 mg/0.4 mL Syringe SUBCUT ×2 (00:35→20:29)
[2021-09-30] MEDS: sodium chloride 0.9% 1,000 ML 125 ML IV ×2 (00:35→08:14)
[2021-09-30] MEDS: pantoprazole 40 mg SDV IVP ×3 (00:35→20:28)
[2021-09-30] MEDS: ciprofloxacin 400 MG/200 ML PREMIX 200 MG IV ×2 (03:05→15:16)
[2021-09-30] MEDS: ondansetron 2 mg/ML SDV 2 mL 8 MG IVP ×3 (03:51→20:28)
[2021-09-30] MEDS: morphine 4 mg/mL SDV 1 mL IVP ×7 (03:52→23:29)
[2021-09-30 05:38] LABS: Hematocrit 21.5 % (37.0-47.0); Hemoglobin 7.1 g/dL (11.5-15.3); Lymphocytes # 0.4 10^3/uL (0.8-4.8); Lymphocytes % 14.7 %; Mean Corpuscular Hemoglobin 41.3 pg (28.0-34.0); Mean Platelet Volume 11.1 fL (7.4-10.4); Monocytes # 0.3 10^3/uL (0.2-0.9); Monocytes % 9.5 %; Neutrophils # 2.06 10^3/uL (1.8-7.7); Neutrophils % 75.4 %; Nucleated Red Blood Cells % 1.5 %; Platelet Count 114 10^3/cmm (130-400); Red Blood Count 1.72 10^6/uL (4.1-5.3); Red Cell Distribution Width 18.4 % (12.1-15.1); White Blood Count 2.7 10^3/uL (4.0-10.0)
[2021-09-30 05:50] LABS: INR 1.23 (0.8-1.2); Lactate (Lactic Acid level) 1.8 mmol/L (0.5-2.2)
[2021-09-30 05:57] LABS: Alanine Aminotransferase 48 U/L (0-33); Albumin Level 2.9 g/dL (3.5-5.2); Alkaline Phosphatase 222 U/L (35-105); Anion Gap 14.5 (5-19); Aspartate Amino Transferase 139 U/L (0-32); Blood Urea Nitrogen 6 mg/dL (6-20); Calcium 7.9 mg/dL (8.5-10.5); Carbon Dioxide 23 mmol/L (22-29); Chloride 100 mmol/L (98-107); Globulin 3.8 g/dL (1.3-4.6); Glomerular Filtration Rate 129.6 mL/min (90-130); Glucose 138 mg/dL (65-115); Magnesium 2.3 mg/dL (1.7-2.3); Osmolality Calculated 278 mOsm/kg (285-295); Phosphorus 1.5 mg/dL (2.5-4.5); Potassium 3.5 mmol/L (3.5-5.1); Sodium 134 mmol/L (136-145); Total Protein 6.7 g/dL (6.6-8.7)
[2021-09-30] MEDS: metroNIDAZOLE IV 500 MG/100 ML PREMIX 100 MG IV ×3 (08:12→23:30)
[2021-09-30] MEDS: potassium chloride ER 20 mEq Tablet 40 MEQ PO (08:19)
[2021-09-30] MEDS: phosphorus 250 mg Tablet PO (08:19)
--- NOTE | 2021-09-30 08:38 | PC.NURSE ---
Dr. Zaldivar at bedside, reviewed labs, HCP to put in orders, gave v.o. for 4 mg morphine IVP now as extra dose from morning prn
[2021-09-30] MEDS: folic acid 1 MG, multivitamin inj 10 ML, thiamine 100 MG in sodium chloride 0.9% 1,000 ML 252.8 MG IV (11:06)
--- NOTE | 2021-09-30 15:43 | PC.NURSE ---
Dr. Zaldivar gave v.o. for Fentanyl patch 12 mg q72
[2021-09-30] MEDS: fentaNYL 12 mcg Patch 1 PATCH TRANSDERMA (15:51)
[2021-09-30 16:40] LABS: Blood Urea Nitrogen 5 mg/dL (6-20); Calcium 7.8 mg/dL (8.5-10.5); Carbon Dioxide 21 mmol/L (22-29); Chloride 105 mmol/L (98-107); Glomerular Filtration Rate 129.6 mL/min (90-130); Glucose 177 mg/dL (65-115); Osmolality Calculated 286 mOsm/kg (285-295); Sodium 137 mmol/L (136-145)
[2021-09-30 17:18] LABS: Osmolality Serum 340 mOsm/kg (278-305)
--- NOTE | 2021-09-30 19:59 | P.PN_ITS ---
Subjective Subjective: Continues to complain of abdominal pain. Asking for more pain medications. Per RN only requiring occasional Librium per [facility] protocol. Vitals/I&O/Wt Last Vital Signs Temp 97.9 F 09/30/21 04:46 Pulse 84 09/30/21 16:00 Resp 17 09/30/21 16:00 BP 90/66 09/30/21 16:00 Pulse Ox 95 09/30/21 16:00 O2 Del Method 09/30/21 08:00 09/30/21 09/30/21 09/30/21 06:59 14:59 22:59 Intake Total 1010 / 3226.667 1506.25 / 1506.25 1211.2 / 2717.45 Output Total 100 / 375 Balance 910 / 2851.667 1506.25 / 1506.25 1211.2 / 2717.45 Weight last 48 hrs Weight 80.467 kg Physical Exam Narrative: Patient appears much older than her stated age of 50. Looks better today. Sitting up in bed trying to take pills. No acute distress seen or per vital signs. Heart regular S1-S2 normal no murmur clicks gallops or rub Lungs diminished breath sounds throughout I did not appreciate any wheezes rales or rhonchi Abdomen soft distended diffuse abdominal tenderness however, improved.. No rebound or rigidity Extremities no clubbing cyanosis or edema skin yellow discoloration Pupils no scleral icterus Data : 09/30/21 05:22 09/30/21 16:05 Micro: Microbiology 09/28/21 19:53 Urine Culture - Final Urine Catheterized 09/28/21 22:00 Blood Culture - Preliminary Blood NEGATIVE TO DATE 09/28/21 22:02 Blood Culture - Preliminary Blood NEGATIVE TO DATE A&P Assessment and plan (1) Alcoholic ketoacidosis: Ketosis improving with fluids bicarbonate increasing no longer with anion gap. Status: Acute (2) Hypokalemia: Potassium normal at 4.0 today. Status: Acute (3) Abdominal pain: Improved and not wanting to contribute to addiction. Will start fentanyl patch low-dose. Also we can alternate with Dilaudid for a change. Status: Acute (4) Hypoglycemia: Resolved Status: Resolved (5) Vomiting: No further vomiting. Nausea treated with Zofran. Status: Acute (6) Intractable nausea and vomiting: As above Status: Acute (7) Cannabis hyperemesis syndrome concurrent with and due to cannabis abuse: Questionable diagnosis. Status: Acute (8) Alcohol withdrawal: On Librium [facility]WA protocol Status: Acute (9) Ileitis: Appears likely to be underlying Crohn's disease. Patient has yet to follow-up with GI. With active disease would await work-up. Continue IV fluids, bowel rest, pain medications and steroids. Status: Acute (10) Pancytopenia: Multifactorial. Alcohol related. Delusional from fluids. Status: Acute (11) Hypokalemia: This is a repeat as above. Patient also has other electrolyte abnormalities that are stabilizing. Banana bag ordered daily. Status: Acute (12) Alcohol use disorder: Counseled to quit and case management ordered for outpatient resources Status: Acute Plan TSH high. Newly diagnosed hypothyroidism. Not significant enough to require IV Lasix at this time. Attestations Medical Necessity Statement*: Patient requires hospitalization for alcohol withdrawal, anemia, increased anion gap metabolic acidosis, hypokalemia, alcoholic ketosis, hyperglycemia Coding Level of Care Code Acute Ocular Care Technician for [facility] Fwd Diagnoses Alcoholic ketoacidosis E87.2 Hypokalemia E87.6 Abdominal pain R10.9 Hypoglycemia E16.2 Vomiting R11.10 Intractable nausea and vomiting R11.2 Cannabis hyperemesis syndrome concurrent with and due to cannabis abuse F12.188 Alcohol withdrawal F10.939 Ileitis K52.9 Pancytopenia D61.818 Hypokalemia E87.6 Alcohol use disorder
[2021-09-30 20:27] LABS: Glucose Point of Care 184 mg/dL (70-110)
[2021-09-30] MEDS: miconazole 2% vaginal cream 45 gm 1 APPFUL VAGINAL (20:29)
[2021-10-01] VITALS (38 sets, daily range): BP systolic 76–114; BP diastolic 54–77; PULSE 67–95; RESP 10–29; TEMP 36.1–36.4; O2SAT 84–99
[2021-10-01] MEDS: morphine 4 mg/mL SDV 1 mL IVP ×2 (02:34→06:29)
[2021-10-01] MEDS: ondansetron 2 mg/ML SDV 2 mL 8 MG IVP ×3 (02:34→20:50)
[2021-10-01] MEDS: ciprofloxacin 400 MG/200 ML PREMIX 200 MG IV ×2 (02:35→16:31)
[2021-10-01] MEDS: sodium chloride 0.9% 1,000 ML 125 ML IV (02:35)
[2021-10-01] MEDS: chlordiazePOXIDE 25 mg Capsule 50 MG PO (04:27)
[2021-10-01 06:33] LABS: Hematocrit 21.7 % (37.0-47.0); Lymphocytes # 0.4 10^3/uL (0.8-4.8); Lymphocytes % 10.5 %; Mean Corpuscular HGB Conc 32.3 g/dL (30.0-36.0); Mean Corpuscular Hemoglobin 41.7 pg (28.0-34.0); Mean Corpuscular Volume 129.2 fl (81-99); Mean Platelet Volume 11.2 fL (7.4-10.4); Monocytes # 0.3 10^3/uL (0.2-0.9); Monocytes % 7.5 %; Neutrophils # 2.99 10^3/uL (1.8-7.7); Neutrophils % 80.7 %; Nucleated Red Blood Cells % 1.1 %; Platelet Count 110 10^3/cmm (130-400); Red Blood Count 1.68 10^6/uL (4.1-5.3); Red Cell Distribution Width 18.7 % (12.1-15.1); White Blood Count 3.7 10^3/uL (4.0-10.0)
[2021-10-01 07:23] LABS: Blood Urea Nitrogen 6 mg/dL (6-20); Calcium 7.9 mg/dL (8.5-10.5); Carbon Dioxide 22 mmol/L (22-29); Chloride 104 mmol/L (98-107); Glomerular Filtration Rate 129.6 mL/min (90-130); Glucose 133 mg/dL (65-115); Magnesium 1.8 mg/dL (1.7-2.3); Osmolality Calculated 282 mOsm/kg (285-295); Sodium 136 mmol/L (136-145)
[2021-10-01 08:08] LABS: Glucose Point of Care 144 mg/dL (70-110)
[2021-10-01] MEDS: pantoprazole 40 mg SDV IVP ×2 (09:09→20:50)
[2021-10-01] MEDS: metroNIDAZOLE IV 500 MG/100 ML PREMIX 100 MG IV ×3 (09:12→23:12)
[2021-10-01] MEDS: TRAMadol 50 mg Tablet PO ×3 (10:32→22:49)
[2021-10-01 11:53] LABS: Glucose Point of Care 136 mg/dL (70-110)
--- NOTE | 2021-10-01 12:14 | PM.PN ---
Subjective Subjective: Patient continues to ask for morphine. I gave her Ultram and she is asking for hydrocodone by name. Friend that she lives with is present. See below for discussion. Patient describing pain on scale of 7-9. She denies any further nausea no vomiting no diarrhea Vitals/I&O/Wt Last Vital Signs Temp 96.9 F L 10/01/21 08:00 Pulse 78 10/01/21 08:00 Resp 15 10/01/21 08:00 BP 114/76 10/01/21 08:00 Pulse Ox 99 10/01/21 08:00 O2 Del Method 09/30/21 08:00 09/30/21 10/01/21 10/01/21 22:59 06:59 14:59 Intake Total 2511.2 / 4017.45 100 / 4117.45 200 / 200 Balance 2511.2 / 4017.45 100 / 4117.45 200 / 200 Physical Exam Narrative: Patient appears much older than her stated age of 50. Appears chronically ill. Able to sit up in bed and talk with me. No acute distress seen or per vital signs. Heart regular S1-S2 normal no murmur clicks gallops or rub Lungs diminished breath sounds throughout I did not appreciate any wheezes rales or rhonchi Abdomen soft distended less tender. With pain more localized now to the right mid and upper quadrant. Consistent where her disease process is located. No rebound or rigidity Extremities no clubbing cyanosis or edema skin yellow discoloration Pupils no scleral icterus Data : 10/01/21 17:15 10/01/21 06:26 Micro: Microbiology 09/28/21 19:53 Urine Culture - Final Urine Catheterized A&P Assessment and plan (1) Alcoholic ketoacidosis: Now resolved. Status: Resolved (2) Abdominal pain: Appears to be improving clinically despite subjective reports. Status: Acute (3) Hypoglycemia: Resolved, blood sugars now in the 150s range on steroids Status: Resolved (4) Intractable nausea and vomiting: No further vomiting. Nausea treated with Zofran. starting to eat Status: Acute (5) Cannabis hyperemesis syndrome concurrent with and due to cannabis abuse: Questionable diagnosis. Status: Acute (6) Alcohol withdrawal: On Librium [facility] protocol Status: Acute (7) Ileitis: Appears likely to be underlying Crohn's disease. Patient has yet to follow-up with GI. With active disease would await work-up. Boyfriend is able to tell me she has had a recent EGD and colonoscopy. And Medicaid would not approve the follow-up testing that was recommended. I am unable to clarify what the ordered test was. Will obtain all records. Continue IV fluids and antibiotics. Will slowly start diet. Status: Acute (8) Pancytopenia: Multifactorial. Alcohol related. Delusional from fluids. Will decrease fluids. Status: Acute (9) Alcohol use disorder: Counseled to quit and case management ordered for outpatient resources Discussed with boyfriend. He states he did remove all the alcohol. Both he and the patient reports significant anxiety and asking for treatment. We will start BuSpar 5 mg 3 times daily and titrate up. RN concerned with asymptomatic hypotension. Her BP has been soft entire admission. Her hemoglobin was noted to be 7.1 earlier this morning and repeat was 6.8. I strongly feel that this is from dilution. I have decreased her IV fluid rate as her eating and drinking has picked up. I rounded for the second time today and she was eating a full meal. Status: Acute Plan TSH high. Newly diagnosed hypothyroidism. Now that able to take oral medications we will start Synthroid. Attestations Medical Necessity Statement*: Patient requires hospitalization for alcohol withdrawal, anemia, increased anion gap metabolic acidosis, hypokalemia, alcoholic ketosis, hyperglycemia Coding Level of Care Code Acute Assembler D[employer] for g Fwd Diagnoses Alcoholic ketoacidosis E87.2 Abdominal pain R10.9 Hypoglycemia E16.2 Intractable nausea and vomiting R11.2 Cannabis hyperemesis syndrome concurrent with and due to cannabis abuse F12.188 Alcohol withdrawal F10.939 Ileitis K52.9 Pancytopenia D61.818 Alcohol use disorder
[2021-10-01] MEDS: folic acid 1 MG, multivitamin inj 10 ML, thiamine 100 MG in sodium chloride 0.9% 1,000 ML 252.8 MG IV (14:48)
--- NOTE | 2021-10-01 16:53 | PC.NURSE ---
Patient's HIB is 7.0. NUrse alerted Dr lindsey, no new orders received.
[2021-10-01 17:24] LABS: Hemoglobin 6.8 g/dL (11.5-15.3)
--- NOTE | 2021-10-01 17:55 | PC.NURSE ---
THroughout the day, patient blood pressure has been variable, often times low, but goes back up to a systolic in the low 100's and has maintained a map of 65+ for past hour, patient's pressure has not been rebounding. NUrse alerted Dr lindsey and received an order to check HGB. Was 7.0 this morning, came back as 6.8. NUrse alerted Dr lindsey.
[2021-10-01] MEDS: miconazole 2% vaginal cream 45 gm 1 APPFUL VAGINAL (20:43)
[2021-10-01] MEDS: enoxaparin 40 mg/0.4 mL Syringe SUBCUT (20:45)
[2021-10-01] MEDS: oxyCODONE 5 mg IR Tab/Cap PO (20:45)
[2021-10-02] VITALS (8 sets, daily range): BP systolic 91–105; BP diastolic 63–72; PULSE 80–89; RESP 12–17; TEMP 36.3–36.6; O2SAT 96–97
[2021-10-02] MEDS: oxyCODONE 5 mg IR Tab/Cap PO ×2 (03:35→09:06)
[2021-10-02] MEDS: ciprofloxacin 400 MG/200 ML PREMIX 200 MG IV ×2 (03:35→14:57)
[2021-10-02 04:45] LABS: Hematocrit 21.3 % (37.0-47.0); Hemoglobin 6.8 g/dL (11.5-15.3); Lymphocytes # 0.4 10^3/uL (0.8-4.8); Lymphocytes % 10.8 %; Mean Corpuscular HGB Conc 31.9 g/dL (30.0-36.0); Mean Corpuscular Hemoglobin 41.2 pg (28.0-34.0); Mean Corpuscular Volume 129.1 fl (81-99); Mean Platelet Volume 11.8 fL (7.4-10.4); Monocytes # 0.2 10^3/uL (0.2-0.9); Monocytes % 6.3 %; Neutrophils # 3.08 10^3/uL (1.8-7.7); Neutrophils % 81.6 %; Nucleated Red Blood Cells % 0.8 %; Platelet Count 126 10^3/cmm (130-400); Red Blood Count 1.65 10^6/uL (4.1-5.3); Red Cell Distribution Width 19.5 % (12.1-15.1); White Blood Count 3.8 10^3/uL (4.0-10.0)
[2021-10-02 05:10] LABS: Anion Gap 14.9 (5-19); Blood Urea Nitrogen 7 mg/dL (6-20); Calcium 8.4 mg/dL (8.5-10.5); Carbon Dioxide 21 mmol/L (22-29); Chloride 106 mmol/L (98-107); Glomerular Filtration Rate 87.9 mL/min (90-130); Glucose 163 mg/dL (65-115); Osmolality Calculated 288 mOsm/kg (285-295); Potassium 3.9 mmol/L (3.5-5.1); Sodium 138 mmol/L (136-145)
[2021-10-02] MEDS: TRAMadol 50 mg Tablet PO ×2 (05:19→14:58)
[2021-10-02] MEDS: thiamine 100 mg Tablet PO (09:06)
[2021-10-02] MEDS: multivitamin therapeutic Tablet 1 TAB PO (09:07)
[2021-10-02] MEDS: folic acid 1 mg Tablet PO (09:07)
[2021-10-02] MEDS: metroNIDAZOLE IV 500 MG/100 ML PREMIX 100 MG IV ×2 (09:08→14:57)
[2021-10-02] MEDS: pantoprazole 40 mg SDV IVP (09:09)
--- NOTE | 2021-10-02 17:10 | P.DS_ITS ---
Discharge Providers Date of Admission: 09/29/21 01:03 Date of Discharge: October 02, 2021 Attending Provider at Admission: Jose Streeter MD Attending Provider at Discharge: Carroll Zaldivar DO Primary Care Provider: Aditya Degroot DO Diagnoses at Discharge Discharge Diagnosis (1) Alcoholic ketoacidosis: Status: Resolved (2) Abdominal pain: Status: Acute (3) Hypoglycemia: Status: Resolved (4) Intractable nausea and vomiting: Status: Acute (5) Cannabis hyperemesis syndrome concurrent with and due to cannabis abuse: Status: Acute (6) Alcohol withdrawal: Status: Acute (7) Ileitis: Status: Acute (8) Pancytopenia: Status: Acute (9) Alcohol use disorder: Status: Acute Reason for Visit Reason for Visit: N/V Abd pains, feet hurt and legs Brief History: Melissa Portillo is a 50 year old female with a past medical history of alcoholism, chronic pancreatitis, Alcoholic Liver disease, history of H. pylori, history of chronic abdominal pain, history of alcoholic gastritis, who presents to [facility] due to a 3-month history of abdominal pain, bloating, nausea, vomiting, decreased stooling.? Patient tells me that she has had a 3-month hi story of abdominal pain, diffuse, abdominal bloating, nausea, vomiting, decreased stooling.? She tells that what has suddenly changes that her abdomen is much more distended, she feels much bloated, she is not able to keep down solids and liquids, she had a decreased appetite.? She does admit drinking alcohol once a day, she has up to 2 glasses of vodka a day, no history of alcohol withdrawal, no history of blacking out, denies a history of hepatitis C.? She tells me also she has not been eating that much, she also reports marijuana use.? No fevers, no chills, no recent antibiotic use, no history of C. difficile, no history of ulcerative colitis or Crohn's disease.? No bloody or black stools, no hematemesis, no history of esophageal varices. Hospital Course Hospital Course Patient was found to have ileitis and colitis. She was placed on IV fluids given bowel rest placed on steroids and IV antibiotics. She also suffered from alcoholic ketosis. She was placed on Librium for prevention of alcohol withdrawal. She had very minimal signs of withdrawal. The ketosis resolved within a few days. Patient remains with significant abdominal pain. I gave her a pulse dose of days of steroids. Suffers from significant anxiety and stress. She states that is why she drinks. Case management was consulted and given the patient resources for alcohol abstinence. Recommend AA and counseling. Patient's significant other has removed all alcohol from the house and patient states that she does want to quit. She will be prescribed Librium on discharge. Daughter started on BuSpar for anxiety. I recommend PCP start BuSpar and titrate accordingly. Patient will complete a 10-day course of Cipro and Flagyl for the ileitis and colitis. She will need a GI consult and follow-up. Physical Exam Narrative: Patient appears much older than her stated age of 50. Appears chronically ill. No acute distress seen or per vital signs. Heart regular S1-S2 normal no murmur clicks gallops or rub Lungs diminished breath sounds throughout I did not appreciate any wheezes rales or rhonchi Abdomen soft distended less tender. Patient remains with abdominal pain mostly right-sided or midline. Consistent where her disease process is located. No rebound or rigidity Extremities no clubbing cyanosis or edema skin yellow discoloration Pupils no scleral icterus Discharge Data Studies Completed and Pending Completed Studies During Hospitalization Category Date Time Status CT abdomen pelvis w con* [id number] Stat Cat Scan 09/28/21 20:08 Completed US gall bladder [id number] Stat Ultrasound 09/28/21 21:27 Completed Pending at discharge Category Date Time Status Basic Metabolic Panel AM LABS Lab 10/03/21 04:00 Ordered Blood Culture Stat Lab 09/28/21 22:02 Results Complete Blood Count w/Auto AM LABS Lab 10/03/21 04:00 Ordered Complete Blood Count w/Auto AM LABS Lab 10/04/21 04:00 Ordered Vitamin B1(Thiamin) Plas/Ser Urgent Lab 09/29/21 01:57 Received Radiology Impressions Abdomen/Pelvis CT 09/28/21 20:08 IMPRESSION: 1. Ileitis and colitis. This has progressed compared with 09/23/2021 2. Severe fatty liver Gallbladder Ultrasound 09/28/21 21:27 IMPRESSION: Severe fatty liver Laboratory Results WBC 3.8 10^3/uL (4.0-10.0) L 10/02/21 03:58 RBC 1.65 10^6/uL (4.1-5.3) L 10/02/21 03:58 Hgb 6.8 g/dL (11.5-15.3) L 10/02/21 03:58 Hct 21.3 % (37.0-47.0) L 10/02/21 03:58 MCV 129.1 fl (81-99) H 10/02/21 03:58 MCH 41.2 pg (28.0-34.0) H 10/02/21 03:58 MCHC 31.9 g/dL (30.0-36.0) 10/02/21 03:58 RDW 19.5 % (12.1-15.1) H 10/02/21 03:58 Plt Count 126 10^3/cmm (130-400) L 10/02/21 03:58 MPV 11.8 fL (7.4-10.4) H 10/02/21 03:58 Neut % (Auto) 81.6 % 10/02/21 03:58 Lymph % (Auto) 10.8 % 10/02/21 03:58 [place] % (Auto) 6.3 % 10/02/21 03:58 Eos % (Auto) 0.0 % 10/02/21 03:58 Baso % (Auto) 0.0 % 10/02/21 03:58 Neut # (Auto) 3.08 10^3/uL (1.8-7.7) 10/02/21 03:58 Lymph # (Auto) 0.4 10^3/uL (0.8-4.8) L 10/02/21 03:58 [place] # (Auto) 0.2 10^3/uL (0.2-0.9) 10/02/21 03:58 Eos # (Auto) 0.0 10^3/uL (0.0-0.8) 10/02/21 03:58 Baso # (Auto) 0.0 10^3/uL (0.0-0.1) 10/02/21 03:58 Nucleated RBC % (auto) 0.8 % 10/02/21 03:58 Nucleated RBCs # 0.0 /100WBC 10/02/21 03:58 ESR 9 mm/hr (0-15) 09/28/21 22:02 PT 15.80 SECONDS (12.1-14.9) H 09/30/21 05:22 INR 1.23 (0.8-1.2) H 09/30/21 05:22 Specimen Type Arterial 09/28/21 22:03 Sample Site Radial, left 09/28/21 22:03 ABG pH 7.44 (7.35-7.45) 09/28/21 22:03 ABG pCO2 23.1 mmHg (35-45) L 09/28/21 22:03 ABG pO2 88.4 mmHg (80.0-100.0) 09/28/21 22:03 ABG HCO3 15.8 mmol/L (22-26) L 09/28/21 22:03 ABG Base Excess -7.1 mmol/L (-2.0-2.0) L 09/28/21 22:03 Tato Test Pos 09/28/21 22:03 Hematocrit 27.7 % (37-47) L 09/28/21 22:03 O2 Delivery Device Roomair 09/28/21 22:03 FiO2 21.0 % 09/28/21 22:03 Pilates Instructor ID Ashley 09/28/21 22:03 Sodium 138 mmol/L (136-145) 10/02/21 03:58 Potassium 3.9 mmol/L (3.5-5.1) 10/02/21 03:58 Chloride 106 mmol/L (98-107) 10/02/21 03:58 Carbon Dioxide 21 mmol/L (22-29) L 10/02/21 03:58 Anion Gap 14.9 (5-19) 10/02/21 03:58 BUN 7 mg/dL (6-20) 10/02/21 03:58 Creatinine 0.7 mg/dL (0.5-0.9) 10/02/21 03:58 GFR Calculation 87.9 mL/min (90-130) L 10/02/21 03:58 Glucose 163 mg/dL (65-115) H 10/02/21 03:58 POC Glucose 136 mg/dL (70-110) H 10/01/21 11:50 Estimat Average Glucose 59 09/28/21 22:02 Hemoglobin A1c 3.7 % (4.0-6.0) L 09/28/21 22:02 Serum Osmolality 340 mOsm/kg (278-305) H 09/28/21 19:35 Calculated Osmolality 288 mOsm/kg (285-295) 10/02/21 03:58 Lactate 1.8 mmol/L (0.5-2.2) 09/30/21 05:22 Calcium 8.4 mg/dL (8.5-10.5) L 10/02/21 03:58 Phosphorus 2.0 mg/dL (2.5-4.5) L 10/01/21 06:26 Magnesium 1.8 mg/dL (1.7-2.3) 10/01/21 06:26 Iron 142 ug/dL (37-145) 09/28/21 22:02 Ferritin 544 ng/mL (15-150) H 09/28/21 22:02 Total Bilirubin 3.0 mg/dL (0.15-1.2) H 09/30/21 05:22 Direct Bilirubin 1.60 mg/dL (0.00-0.30) H 09/28/21 22:02 Indirect Bilirubin 1.50 09/28/21 22:02 GGT 705 U/L (5-36) H 09/28/21 22:02 AST 139 U/L (0-32) H 09/30/21 05:22 ALT 48 U/L (0-33) H 09/30/21 05:22 Alkaline Phosphatase 222 U/L (35-105) H 09/30/21 05:22 Ammonia 46 umol/L (11-51) 09/29/21 01:57 C-Reactive Protein 15.8 mg/L (0.0-4.9) H 09/29/21 01:57 NT-Pro-B Natriuret Pep 388 pg/mL (0-125) H 09/29/21 01:57 Total Protein 6.7 g/dL (6.6-8.7) 09/30/21 05:22 Albumin 2.9 g/dL (3.5-5.2) L 09/30/21 05:22 Globulin 3.8 g/dL (1.3-4.6) 09/30/21 05:22 Lipase 77 U/L (13-60) H 09/28/21 19:35 Vitamin B12 672 pg/mL (232-1245) 09/28/21 22:02 Folate 3.3 ng/mL (4.8-37.3) L 09/28/21 22:02 Procalcitonin 0.38 ng/mL (0-0.5) 09/28/21 22:02 TSH 8.96 uIU/mL (0.27-4.20) H 09/29/21 01:57 Urine Color Maribel (Yellow) 09/28/21 19:53 Urine Appearance Clear (CLEAR) 09/28/21 19:53 Urine pH 6 (5-7) 09/28/21 19:53 Ur Specific [place] 1.010 (1.005-1.030) 09/28/21 19:53 Urine Protein Neg (Negative) 09/28/21 19:53 Urine Glucose (UA) Norm (Normal) 09/28/21 19:53 Urine Ketones 3+ (Negative) H 09/28/21 19:53 Urine Blood Neg (Negative) 09/28/21 19:53 Urine Nitrate Negative (Negative) 09/28/21 19:53 Urine Bilirubin 1+ (Negative) H 09/28/21 19:53 Urine Urobilinogen 4+ mg/dL (Negative) H 09/28/21 19:53 Ur Leukocyte Esterase Negative (Negative) 09/28/21 19:53 Urine RBC 0-4 /hpf (0-2) H 09/28/21 19:53 Urine WBC 0-4 /hpf (0-5) H 09/28/21 19:53 Ur Squamous Epith Cells 10-15 /hpf (0-5) H 09/28/21 19:53 Amorphous Sediment Not Reportable 09/28/21 19:53 Urine Bacteria 2+ /hpf (NONE) H 09/28/21 19:53 Urine Yeast 2+ /hpf H 09/28/21 19:53 Salicylates < 0.3 mg/dL (3-10) L 09/28/21 19:35 Urine Opiates Screen Positive ng/mL (Negative) H 09/28/21 19:53 Acetaminophen < 5.0 ug/mL (10-30) L 09/28/21 19:35 Ur Barbiturates Screen Negative ng/mL (Negative) 09/28/21 19:53 Ur Phencyclidine Scrn Negative ng/mL (Negative) 09/28/21 19:53 Ur Amphetamines Screen Negative ng/mL (Negative) 09/28/21 19:53 U Benzodiazepines Scrn Negative ng/mL (Negative) 09/28/21 19:53 Urine Cocaine Screen Negative ng/mL (Negative) 09/28/21 19:53 U Marijuana (THC) Screen Negative ng/mL (Negative) 09/28/21 19:53 Ethyl Alcohol 124 mg/dL (0-10) H 09/28/21 22:02 Serum Ketones Positive (Negative) H 09/28/21 19:35 Hepatitis A IgM Ab Non-reactive (Nonreactive) 09/28/21 22:02 Hep Bs Antigen Non-reactive (Nonreactive) 09/28/21 22:02 Hep B Core IgM Ab Non-reactive (Nonreactive) 09/28/21 22:02 Hepatitis C Antibody Non-reactive (Nonreactive) 09/28/21 22:02 HIV 1&2 Ab & HIV 1 Ag Non-reactive (Non-Reactiv) 09/28/21 22:02 HIV 1&2 Antibody Non-reactive (Non-Reactiv) 09/28/21 22:02 Vitals Last Vital Signs Temp 97.9 F 10/02/21 16:00 Pulse 84 10/02/21 16:00 Resp 17 10/02/21 16:00 BP 105/72 10/02/21 16:00 Pulse Ox 97 10/02/21 16:00 O2 Del Method 10/02/21 16:00 Discharge Plan Discharge Patient Disposition: Home Condition: Stable Prescriptions: New chlordiazepoxide HCl 25 mg Capsule 50 mg PO Q4H PRN (Reason: ALC) Qty: 30 0RF oxycodone 5 mg Tablet 5 mg PO Q4H PRN (Reason: Moderate Pain) Qty: 20 0RF Thera 400 mcg Tablet 1 tab PO DAILY Qty: 30 0RF Cipro 500 mg tablet 500 mg PO Q12H Qty: 14 0RF metronidazole 500 mg tablet 500 mg PO TID Qty: 21 0RF Continued albuterol sulfate [ProAir HFA] 90 mcg/actuation HFA aerosol inhaler 2 puff INHALATION Q4H PRN (Reason: Shortness Of Breath) nitroglycerin [Nitrostat] 0.4 mg Tablet, Sublingual 0.4 mg SUBLINGUAL Q5M PRN (Reason: Chest Pain) Rx Instructions: do not exceed 3 doses per episode famotidine 40 mg tablet 40 mg PO BEDTIME Discharge Orders: Discharge Order (Routine); Ordered 10/02/21 Ordered By: Carroll Zaldivar Referrals: Aditya Degroot, [Primary Care Provider] - (Please call primary care provider tomorrow morning to schedule hospital follow up appointment within 1 week. ) Discharge Diet: Advance as tolerated, Low Fat and GI Soft Discharge Activity: Increase activity as tolerated Patient Instructions: Ciprofloxacin (By mouth), Chlordiazepoxide (By mouth), Ox ycodone/Acetaminophen (By mouth), Metronidazole (By mouth), Abuse of Alcohol (GEN), Opioid Safety Activity Restrictions/Additional Instructions: I was unable to order the BuSpar through our record. Recommend BuSpar 5 mg 3 times daily increase by 15 mg every week until max dose of 15 mg 3 times daily. Recommend AA or other abstinence program. Recommend counseling. Follow-up with PCP in 1 week. Discharge Attestations Time Spent in Discharge Care*: greater than 30 min Status at Discharge: Cognitive status at discharge: cognitively intact , Behavioral status at discharge: cooperative , Quality Metrics Clinical Quality Measures [ No reported AMI, CVA or VTE this stay] Coding Level of Care Code Acute [facility]g [facility] note Diagnoses Alcoholic ketoacidosis E87.2 Abdominal pain R10.9 Hypoglycemia E16.2 Intractable nausea and vomiting R11.2 Cannabis hyperemesis syndrome concurrent with and due to cannabis abuse F12.188 Alcohol withdrawal F10.939 Ileitis K52.9 Pancytopenia D61.818 Alcohol use disorder
[2021-10-05 23:18] LABS: Vitamin B1(Thiamin) Plas/Ser >1200 nmol/L (8-30)
== END 2021-10-02 18:00 | disposition home or self-care (01) | DRG 897 ==
LOC: ER 20:11 → ICU 09-29 00:50 → MEDSURG 10-01 18:29
PROVIDERS: Physician Assistant; Admitting Provider Family Medicine; Emergency Provider Emergency Medicine; PCP Family Medicine; Visit Provider Internal Medicine
DX: F10.288 Alcohol dependence with other alcohol-induced disorder (principal); E87.2 Acidosis; D61.818 Other pancytopenia; K86.0 Alcohol-induced chronic pancreatitis; F10.239 Alcohol dependence with withdrawal, unspecified; K52.9 Noninfective gastroenteritis and colitis, unspecified; Y90.6 Blood alcohol level of 120-199 mg/100 ml; R11.2 Nausea with vomiting, unspecified; F12.10 Cannabis abuse, uncomplicated; K70.30 Alcoholic cirrhosis of liver without ascites; F17.200 Nicotine dependence, unspecified, uncomplicated; E87.6 Hypokalemia; R73.9 Hyperglycemia, unspecified; E16.2 Hypoglycemia, unspecified; E86.0 Dehydration; D52.8 Other folate deficiency anemias; D64.9 Anemia, unspecified; E03.9 Hypothyroidism, unspecified; F41.9 Anxiety disorder, unspecified; Z86.19 Personal history of other infectious and parasitic diseases; Z90.49 Acquired absence of other specified parts of digestive tract; Z90.89 Acquired absence of other organs; Z90.79 Acquired absence of other genital organ(s)
CPT/HCPCS: 36415; 36416; 36600; 74177; 76705; 80048; 80053; 80074; 80306; 80307; 81001; 82009; 82140; 82247; 82248; 82607; 82728; 82746; 82803; 82962; 82977; 83036; 83540; 83605; 83690; 83735; 83880; 83930; 84100; 84145; 84425; 84443; 85018; 85025; 85610; 85651; 86140; 87040; 87086; 87806; 94664; 94760; 96365; 96366; 96372; 96375; 96376; 97110; 97161; 97530; 99285; C9113; J0744; J1650; J2270; J2405; J2930; J3411; J3475; J3480; J3490; J7030; Q9967; S0030

== ENCOUNTER 2021-10-18 06:52 | Inpatient (IN) | payer MEDICAID, SELFPAY ==
[2021-10-18] VITALS (17 sets, daily range): BP systolic 101–128; BP diastolic 67–87; PULSE 0–114; RESP 16–24; TEMP 36.9–37.2; O2SAT 93–98; BMI 29.8
--- NOTE | 2021-10-18 06:56 | ECG_ITS ---
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 Measurements Intervals [place] Rate: 118 P: 78 NE: 157 QRS: 71 QRSD: 74 T: 61 QT: 305 QTc: 428 Interpretive Statements SINUS TACHYCARDIA ABNORMAL RHYTHM ECG Compared to ECG 08/22/2021 11:46:45 T-wave abnormality no longer present Electronically Signed On 10-18-2021 16:34:21 CDT by Kendra Kenyon M.D. [id number]
--- NOTE | 2021-10-18 06:56 | W.ED.ABDPA2 ---
HPI - Abdominal Pain General: Chief Complaint: Abdominal Pain Stated Complaint: abd pain n/v Time Seen by Provider: 10/18/21 06:55 Source: patient Mode of arrival: ambulatory History of Present Illness: 50-year-old female with a known history of alcoholism presents emergency room complaint left upper quadrant abdominal pain began late yesterday. She admits to have been having drinking heavily yesterday she drank 3 very large glasses of vodka each about 20 ounces or more by her indications. She has had problems in the past with alcoholic gastritis and pancreatitis. She denies any hematemesis or coffee-ground emesis she has no known history of esophageal varices. No history of perforated ulcers. In July of this year she had an EGD which showed alcoholic gastritis with no active bleeding. She had multiple emergency room visits related to her alcohol use and accompanying alcoholic gastritis and pancreatitis. She denies any chest pain or shortness of breath no fever sweats or chills no hematemesis or coffee-ground emesis. MD elicited complaint: abdominal pain Pertinent past history: other (Alcoholism) Onset (ago): hour(s) Pain Consistency: constant Location: Epigastric and LUQ Severity: severe Quality: cramping and stabbing Radiation: back Exacerbating factors: eating and vomiting Relieving factors: nothing Associated Symptoms: Reports bloating, GI cramping, dyspepsia, nausea, poor appetite and vomiting; Denies anorexia, belching, change in bowel habits, change in stool character, chills, coffee ground emesis, constipation, diarrhea, dysuria, excessive flatus, fever(s), heartburn, hematochezia, hematuria, hematemesis, fecal incontinence, loose stools, melena and syncope Review of Systems Const: Reports: malaise; Denies: fever(s), chills or fatigue ENMT: Denies: throat pain, ear or mastoid pain, nasal discharge or nasal congestion Card: Denies: chest pain, palpitations, irregular heart rhythm or syncope Resp: Denies: dyspnea, productive cough or non-productive cough GI: Reports: abdominal pain, nausea, vomiting, bloating and GI cramping; Denies: hematemesis, coffee ground emesis, heartburn, diarrhea, constipation, belching, excessive flatus, fecal incontinence, change in bowel habits, change in stool character, hematochezia or melena : Denies: flank pain, difficulty voiding, dysuria, urinary frequency, urinary urgency or hematuria Skin/Breast: Denies: rash or pruritus PFSH ED PFSH: Medical History Alcohol withdrawal Alcoholism Anemia Carpal tunnel syndrome Chronic back pain Chronic pancreatitis Cirrhosis Enteritis GERD (gastroesophageal reflux disease) H. pylori infection Hepatitis A Hypokalemia Intractable nausea and vomiting Sciatica Tobacco dependency Surgical History H/O rotator cuff surgery H/O: hysterectomy History of appendectomy History of cholecystectomy Family History Denies family history of Diabetes CAD (coronary artery disease) Dementia Social History Smoking and tobacco status: current every day smoker Alcohol intake: current Desire information about alcohol rehabilitation?: No Counseling given: Yes Last alcohol use date: 02/15/19 Physical Exam Const: GENERAL APPEARANCE: cooperative and comfortable ORIENTATION/CONSCIOUSNESS: Yes awake, Yes oriented to person, Yes oriented to place and Yes oriented to time HENMT: COMMON NORMALS: normocephalic, atraumatic and hearing grossly normal bilaterally HEAD & SCALP: normocephalic and atraumatic Resp: COMMON NORMALS: normal respiratory effort, No retractions, No use of accessory muscles and clear to auscultation bilaterally AUSCULTATION: clear to auscultation bilaterally Cardio: COMMON NORMALS: regular rate, regular rhythm and No murmurs present (Cardio) RATE: regular rate RHYTHM: regular rhythm GI: COMMON NORMALS: No hepatosplenomegaly present AUSCULTATION: Yes normoactive bowel sounds PALPATION: Yes Tenderness to palpation present (GI) Details: LUQ, No Guarding due to palpation present (GI) and Yes No hepatosplenomegaly present Extremity: COMMON NORMALS: normal to inspection, capillary refill normal, no clubbing, cyanosis or edema, no calf tenderness and no pedal edema Neuro: SENSORIUM/ORIENTATION: Yes oriented to person, Yes oriented to place and Yes oriented to time Skin: COMMON NORMALS: no rashes or lesions noted GENERAL SKIN EXAM: no rashes or lesions noted Course Vital Signs: Vital signs: Vital Signs Temperature 99.0 F 10/20/21 08:00 Pulse Rate 100 10/20/21 08:00 Respiratory Rate 18 10/20/21 09:49 Blood Pressure 145/89 10/20/21 08:00 Pulse Oximetry 96 10/20/21 08:00 Oxygen Delivery Me thod 10/20/21 08:00 MDM - Abdominal Pain Medical Decision Making Acute pancreatitis and anemia. Pancytopenia secondary to her chronic alcohol use admit to evaluate for upper GI bleed keep n.p.o. discussed with hospitalist orders written Medical Records I reviewed the patient's medical records. Lab Data I reviewed the patient's lab results. : 10/20/21 04:46 10/20/21 04:46 Labs/Radiology: Laboratory Results WBC 7.5 10^3/uL (4.0-10.0) 10/18/21 07:40 RBC 2.34 10^6/uL (4.1-5.3) L 10/18/21 07:40 Hgb 9.3 g/dL (11.5-15.3) L 10/18/21 07:40 Hct 28.6 % (37.0-47.0) L 10/18/21 07:40 MCV 122.2 fl (81-99) H 10/18/21 07:40 MCH 39.7 pg (28.0-34.0) H 10/18/21 07:40 MCHC 32.5 g/dL (30.0-36.0) 10/18/21 07:40 RDW 15.9 % (12.1-15.1) H 10/18/21 07:40 Plt Count 321 10^3/cmm (130-400) 10/18/21 07:40 MPV 10.1 fL (7.4-10.4) 10/18/21 07:40 Neut % (Auto) 71.7 % 10/18/21 07:40 Lymph % (Auto) 18.5 % 10/18/21 07:40 [place] % (Auto) 5.2 % 10/18/21 07:40 Eos % (Auto) 4.0 % 10/18/21 07:40 Baso % (Auto) 0.5 % 10/18/21 07:40 Neut # (Auto) 5.39 10^3/uL (1.8-7.7) 10/18/21 07:40 Lymph # (Auto) 1.4 10^3/uL (0.8-4.8) 10/18/21 07:40 [place] # (Auto) 0.4 10^3/uL (0.2-0.9) 10/18/21 07:40 Eos # (Auto) 0.3 10^3/uL (0.0-0.8) 10/18/21 07:40 Baso # (Auto) 0.0 10^3/uL (0.0-0.1) 10/18/21 07:40 Nucleated RBC % (auto) 0 % 10/18/21 07:40 Nucleated RBCs # 0.0 /100WBC 10/18/21 07:40 Sodium 137 mmol/L (136-145) 10/18/21 07:40 Potassium 4.7 mmol/L (3.5-5.1) 10/18/21 07:40 Chloride 100 mmol/L (98-107) 10/18/21 07:40 Carbon Dioxide 23 mmol/L (22-29) 10/18/21 07:40 Anion Gap 18.7 (5-19) 10/18/21 07:40 BUN 11 mg/dL (6-20) 10/18/21 07:40 Creatinine 0.7 mg/dL (0.5-0.9) 10/18/21 07:40 GFR Calculation 87.9 mL/min (90-130) L 10/18/21 07:40 Glucose 98 mg/dL (65-115) 10/18/21 07:40 Calculated Osmolality 283 mOsm/kg (285-295) L 10/18/21 07:40 Calcium 9.4 mg/dL (8.5-10.5) 10/18/21 07:40 Magnesium 1.3 mg/dL (1.7-2.3) L 10/18/21 07:40 Total Bilirubin 0.7 mg/dL (0.15-1.2) 10/18/21 07:40 AST 72 U/L (0-32) H 10/18/21 07:40 ALT 32 U/L (0-33) 10/18/21 07:40 Alkaline Phosphatase 156 U/L (35-105) H 10/18/21 07:40 Total Protein 7.5 g/dL (6.6-8.7) 10/18/21 07:40 Albumin 4.2 g/dL (3.5-5.2) 10/18/21 07:40 Globulin 3.3 g/dL (1.3-4.6) 10/18/21 07:40 Lipase 193 U/L (13-60) H 10/18/21 07:40 TSH 17.40 uIU/mL (0.27-4.20) H 10/18/21 07:40 Ethyl Alcohol < 10 mg/dL (0-10) 10/18/21 07:40 Discharge Plan Discharge Patient Disposition: Admitted As Inpatient Admit Provider: Mehrdad Coon Clinical Impression: Pancreatitis, Pancytopenia, Alcohol use disorder Condition: Stable Coding Level of Care Code ED Director [employer] for [employer] Fwd Exam Detailed
[2021-10-18] MEDS: morphine 4 mg/mL SDV 1 mL IVP (07:20)
[2021-10-18] MEDS: haloperidol inj 5 mg/mL INJ 1 mL 2.5 MG IVP ×2 (07:22→11:18)
[2021-10-18] MEDS: sodium chloride 0.9% 1,000 ML 999 ML IV (07:22)
[2021-10-18] MEDS: pantoprazole 40 mg SDV 80 MG IVP (07:22)
--- NOTE | 2021-10-18 07:41 | PC.NURSE ---
PT PLACED ON CONTINUOUS NIBP, SPO2, AND CM
[2021-10-18 07:50] LABS: Basophils % 0.5 %; Eosinophils # 0.3 10^3/uL (0.0-0.8); Hematocrit 28.6 % (37.0-47.0); Hemoglobin 9.3 g/dL (11.5-15.3); Lymphocytes # 1.4 10^3/uL (0.8-4.8); Lymphocytes % 18.5 %; Mean Corpuscular HGB Conc 32.5 g/dL (30.0-36.0); Mean Corpuscular Hemoglobin 39.7 pg (28.0-34.0); Mean Corpuscular Volume 122.2 fl (81-99); Mean Platelet Volume 10.1 fL (7.4-10.4); Monocytes # 0.4 10^3/uL (0.2-0.9); Monocytes % 5.2 %; Neutrophils # 5.39 10^3/uL (1.8-7.7); Neutrophils % 71.7 %; Nucleated Red Blood Cells % 0 %; Platelet Count 321 10^3/cmm (130-400); Red Blood Count 2.34 10^6/uL (4.1-5.3); Red Cell Distribution Width 15.9 % (12.1-15.1); White Blood Count 7.5 10^3/uL (4.0-10.0)
[2021-10-18 08:09] LABS: Alanine Aminotransferase 32 U/L (0-33); Albumin Level 4.2 g/dL (3.5-5.2); Alkaline Phosphatase 156 U/L (35-105); Anion Gap 18.7 (5-19); Aspartate Amino Transferase 72 U/L (0-32); Blood Urea Nitrogen 11 mg/dL (6-20); Calcium 9.4 mg/dL (8.5-10.5); Carbon Dioxide 23 mmol/L (22-29); Chloride 100 mmol/L (98-107); Globulin 3.3 g/dL (1.3-4.6); Glomerular Filtration Rate 87.9 mL/min (90-130); Glucose 98 mg/dL (65-115); Lipase 193 U/L (13-60); Osmolality Calculated 283 mOsm/kg (285-295); Potassium 4.7 mmol/L (3.5-5.1); Sodium 137 mmol/L (136-145); Total Bilirubin 0.7 mg/dL (0.15-1.2); Total Protein 7.5 g/dL (6.6-8.7)
[2021-10-18 08:18] LABS: Alcohol Level < 10 mg/dL (0-10)
[2021-10-18] MEDS: folic acid 1 MG, multivitamin inj 10 ML, thiamine 100 MG in sodium chloride 0.9% 1,000 ML 252.8 MG IV (10:14)
--- NOTE | 2021-10-18 11:36 | PM.HP ---
Providers/Chief Complaint Admitting Physician: Mehrdad Coon MD, Hospitalist Primary Care Provider: Aditya Degroot DO Chief Complaint: abd pain n/v History of Present Illness Melissa Portillo is a 50 year old female who presents today from home with complaints of abdominal pain the last 2 days, mainly upper quadrants associated with nausea and vomiting. She reports she is actually been nauseated at least a week. She occasionally has marijuana use. She continues to drink heavily, vodka, with her last intake last night. She denies any blood in her emesis, stool, or black or tarry stools. She denies any fevers. Occasional cough but this is normal for her with COPD. Review of Systems General: Reports: 10 or more systems reviewed and unremarkable except in HPI and below Const: Denies: fever(s) or chills Eyes: Denies: change in vision ENMT: Denies: throat pain Card: Denies: chest pain Resp: Reports: dyspnea and non-productive cough GI: Reports: abdominal pain, nausea and vomiting; Denies: hematemesis, hematochezia or melena : Denies: flank pain Musc: Denies: neck pain or back pain Skin/Breast: Denies: rash Neuro: Denies: headache(s) Psych: Denies: anxiety Endo: Denies: polyuria Eric/Lymph: Denies: easy bruising All/Imm: Denies: urticaria Medications/Allergies Home Medications Medication Instructions Recorded Confirmed Last Taken Type albuterol sulfate 90 mcg/actuation 2 puff inhalation Q4H PRN 11/29/20 10/18/21 Unknown History aerosol inhaler (ProAir HFA) Shortness Of Breath nitroglycerin 0.4 mg sublingual 0.4 mg sublingual Q5M PRN Chest 06/01/21 10/18/21 Unknown History tablet (Nitrostat) Pain chlordiazepoxide HCl 25 mg capsule 50 mg PO Q4H PRN ALC #30 caps 10/02/21 10/18/21 Unknown Rx multivitamin with folic acid 400 1 tab PO DAILY #30 tabs 10/02/21 10/18/21 Unknown Rx mcg tablet (Thera) omeprazole 40 mg capsule,delayed 40 mg PO BID 10/18/21 10/18/21 Unknown History release Allergies Allergy/AdvReac Type Severity Reaction Status Date / Time codeine Allergy ALGY-Hives Verified 10/18/21 09:20 ketorolac [From Toradol] Allergy ALGY-Rash Verified 10/18/21 09:20 naproxen [From Naprosyn] Allergy ADR-Vomitin Verified 10/18/21 09:20 g prochlorperazine Allergy ALGY-Swell Verified 10/18/21 09:20 [From Compazine] Lip/Tongue/Throat PFSH Acute PFSH: Medical History Alcohol withdrawal Alcoholism Anemia Carpal tunnel syndrome Chronic back pain Chronic pancreatitis Cirrhosis Enteritis GERD (gastroesophageal reflux disease) H. pylori infection Hepatitis A Hypokalemia Intractable nausea and vomiting Sciatica Tobacco dependency Surgical History H/O rotator cuff surgery H/O: hysterectomy History of appendectomy History of cholecystectomy Family History Denies family history of Diabetes CAD (coronary artery disease) Dementia Social History Smoking and tobacco status: current every day smoker Alcohol intake: current Desire information about alcohol rehabilitation?: No Counseling given: Yes Last alcohol use date: 02/15/19 Vitals/I&O/Wt Last Vital Signs Temp 98.8 F 10/18/21 07:01 Pulse 102 H 10/18/21 07:41 Resp 22 H 10/18/21 07:41 BP 128/85 10/18/21 07:41 Pulse Ox 95 10/18/21 07:41 O2 Del Method 10/18/21 07:41 10/17/21 10/18/21 10/18/21 22:59 06:59 14:59 Intake Total 1000 / 1000 Balance 1000 / 1000 Weight last 48 hrs Weight 78.925 kg Physical Exam Narrative: General exam is white female, complaining of abdominal discomfort HEENT: Pupils equally round. Atraumatic and normocephalic. Oropharynx clear. Neck is supple no lymphadenopathy or thyromegaly Cardiovascular regular rate and rhythm without murmur. Slightly tachycardic. Lungs clear no wheezing or crackles Abdomen is soft. Positive bowel sounds. Tenderness is present in the epigastric area as well as the left upper quadrant. exams deferred Extremities no cyanosis clubbing or edema, cap refill brisk Skin no rash Neuro no obvious focal deficits. Data : 10/18/21 07:40 10/18/21 07:40 Other Labs: MCV 122 AST 72, alk phos 156 Bilirubin normal Magnesium not checked Lipase 193 Alcohol level less than 10 Has had multiple previous imaging tests including CT abdomen and pelvis and gallbladder ultrasound last done mid September demonstrating significant fatty liver, A&P Assessment and plan (1) Intractable nausea and vomiting: Patient presents with intractable nausea and vomiting. This is likely secondary to acute pancreatitis, although could be secondary to alcoholic gastritis or THC use. Nausea control Hydration Counseled on avoiding marijuana and alcohol Protonix IV Status: Acute (2) Pancreatitis: Patient with evidence of acute pancreatitis She has had multiple CTs and abdominal ultrasounds. I do not see a reason to reimage her currently. If she clinically worsens we can do it then. Pain control, nausea control Counseled on alcohol avoidance [facility] protocol in case withdrawal occurs Multivitamin, folate, thiamine Offer rehabilitation resources Status: Acute (3) Anemia: Patient with evidence of chronic anemia, with low folate level on recent laboratory Continue folate Protonix 40 mg IV every 12 hours Status: Acute (4) Tobacco dependency: Nicotine patch Encourage abstinence Counseling 3 minutes provided. Status: Acute Plan Lovenox at this time for DVT prophylaxis Full code Attestations Medical Necessity Statement*: Will need greater than 2 midnight stay secondary to recurrent intractable nausea vomiting, pancreatitis, alcoholism with high risk of withdrawal Coding Level of Care Code Acute Jackscrew Man for [facility] Fwd Diagnoses Intractable nausea and vomiting R11.2 Pancreatitis K85.90 Anemia D64.9 Tobacco dependency F17.200
[2021-10-18 12:09] LABS: Magnesium 1.3 mg/dL (1.7-2.3)
[2021-10-18] MEDS: ondansetron 2 mg/ML SDV 2 mL 4 MG IVP (13:06)
[2021-10-18] MEDS: nicotine 21 mg Patch 1 PATCH TRANSDERMA (13:09)
[2021-10-18] MEDS: magnesium sulfate premix 2 GM/50 ML PIGGYBACK IV (16:16)
[2021-10-18] MEDS: sodium chloride 0.9% 1,000 ML 150 ML IV ×2 (16:16→22:55)
[2021-10-18] MEDS: enoxaparin 40 mg/0.4 mL Syringe SUBCUT (16:17)
[2021-10-18] MEDS: LORazepam 2 mg Tablet PO (16:45)
--- NOTE | 2021-10-18 16:52 | PC.NURSE ---
CIWA score of 7. Patient complaining of some nausea and did not want IM injection of thiamine being nauseous. Patient was not able to have zofran so patient was given PO ativan at this time.
[2021-10-18] MEDS: pantoprazole 40 mg SDV IVP (17:48)
[2021-10-18] MEDS: budesonide 0.5 mg/2 mL Neb INHALATION (20:14)
[2021-10-18 22:18] LABS: Add Urine Culture? No; Bacteria Urine 1+ /hpf; Bilirubin Urine Neg (Negative); Blood Urine Neg (Negative); Glucose Urine UA Norm (Normal); Ketones Urine Negative (Negative); Leukocyte Esterase Urine Negative (Negative); Nitrate Urine Negative (Negative); Protein Urine Neg (Negative); Squamous Epithelial Cell Urine 15-25 /hpf (0-5); Urine Appearance Clear (CLEAR); Urine Color Yellow (Yellow); Urobilinogen Urine Norm (Negative); WBC Urine 0-4 /hpf (0-5); pH Urine 6.5 (5-7)
[2021-10-19] VITALS (17 sets, daily range): BP systolic 106–133; BP diastolic 63–89; PULSE 66–110; RESP 14–18; TEMP 36.8–37.2; O2SAT 90–96
[2021-10-19 03:11] LABS: Basophils % 0.4 %; Eosinophils # 0.4 10^3/uL (0.0-0.8); Eosinophils % 6.7 %; Hematocrit 23.5 % (37.0-47.0); Hemoglobin 7.5 g/dL (11.5-15.3); Lymphocytes # 1.4 10^3/uL (0.8-4.8); Lymphocytes % 25.4 %; Mean Corpuscular HGB Conc 31.9 g/dL (30.0-36.0); Mean Corpuscular Hemoglobin 39.9 pg (28.0-34.0); Mean Platelet Volume 10.6 fL (7.4-10.4); Monocytes # 0.3 10^3/uL (0.2-0.9); Monocytes % 4.5 %; Neutrophils # 3.47 10^3/uL (1.8-7.7); Neutrophils % 62.8 %; Nucleated Red Blood Cells % 0 %; Platelet Count 244 10^3/cmm (130-400); Red Blood Count 1.88 10^6/uL (4.1-5.3); Red Cell Distribution Width 15.8 % (12.1-15.1); White Blood Count 5.5 10^3/uL (4.0-10.0)
[2021-10-19 03:47] LABS: Alanine Aminotransferase 22 U/L (0-33); Albumin Level 3.2 g/dL (3.5-5.2); Alkaline Phosphatase 133 U/L (35-105); Anion Gap 13.7 (5-19); Aspartate Amino Transferase 49 U/L (0-32); Blood Urea Nitrogen 8 mg/dL (6-20); Calcium 8.3 mg/dL (8.5-10.5); Carbon Dioxide 22 mmol/L (22-29); Chloride 105 mmol/L (98-107); Globulin 3.2 g/dL (1.3-4.6); Glucose 79 mg/dL (65-115); Magnesium 1.7 mg/dL (1.7-2.3); Osmolality Calculated 281 mOsm/kg (285-295); Potassium 3.7 mmol/L (3.5-5.1); Sodium 137 mmol/L (136-145); Total Bilirubin 0.7 mg/dL (0.15-1.2); Total Protein 6.4 g/dL (6.6-8.7)
[2021-10-19] MEDS: sodium chloride 0.9% 1,000 ML 150 ML IV (05:24)
[2021-10-19] MEDS: pantoprazole 40 mg SDV IVP ×2 (06:17→17:19)
[2021-10-19 06:44] LABS: Lipase 88 U/L (13-60)
[2021-10-19 06:51] LABS: T3 Free 3.6 PG/ML (2.0-4.4)
[2021-10-19] MEDS: ipratropium-albuterol 3 mL Neb INHALATION (07:37)
[2021-10-19] MEDS: budesonide 0.5 mg/2 mL Neb INHALATION (07:37)
[2021-10-19] MEDS: thiamine 100 mg Tablet PO (09:47)
[2021-10-19] MEDS: multivitamin therapeutic Tablet 1 TAB PO (09:48)
[2021-10-19] MEDS: folic acid 1 mg Tablet PO (09:48)
[2021-10-19] MEDS: ondansetron 2 mg/ML SDV 2 mL 4 MG IVP ×4 (10:44→23:33)
--- NOTE | 2021-10-19 12:00 | P.PN_ITS ---
Subjective Subjective: Melissa reports she is still having significant abdominal pain. She states she has some nausea but has not vomited. She is passing some stool, but is not diarrhea. There is no blood in her stool. She thinks she is slightly better from yesterday. Medications: Reviewed: Yes Vitals/I&O/Wt Last Vital Signs Temp 98.7 F 10/19/21 11:35 Pulse 108 H 10/19/21 11:35 Resp 16 10/19/21 11:35 BP 120/70 10/19/21 11:35 Pulse Ox 93 10/19/21 11:35 O2 Del Method 10/19/21 11:35 10/18/21 10/19/21 10/19/21 22:59 06:59 14:59 Intake Total 2058.7 / 3058.7 972.5 / 4031.2 657.5 / 657.5 Balance 2058.7 / 3058.7 972.5 / 4031.2 657.5 / 657.5 Weight last 48 hrs Weight 78.925 kg Weight 78.925 kg Physical Exam Narrative: General exam is white female, complaining of abdominal discomfort. She does not appear to be withdrawing currently and is not tremulous. Neck is supple no lymphadenopathy or thyromegaly Cardiovascular regular rate and rhythm without murmur. Slightly tachycardic. Lungs clear no wheezing or crackles Abdomen is soft. Positive bowel sounds. Tenderness epigastric area Extremities no cyanosis clubbing or edema, cap refill brisk Data : 10/19/21 01:48 10/19/21 01:48 A&P Assessment and plan (1) Intractable nausea and vomiting: Patient presents with intractable nausea and vomiting. This is likely secondary to acute pancreatitis, although could be secondary to alcoholic gastritis or THC use. Nausea control with Zofran Continue hydration Counseled on avoiding marijuana and alcohol Continue Protonix IV Patient reports she is symptomatically slightly better Status: Acute (2) Pancreatitis: Patient with evidence of acute pancreatitis She has had multiple CTs and abdominal ultrasounds. I do not see a reason to reimage her currently. If she clinically worsens we can do it then. Pain control, nausea control Counseled on alcohol avoidance [facility] protocol in case withdrawal occurs Multivitamin, folate, thiamine Offer rehabilitation resources Overall she still has significant epigastric pain, but it is improved. Will not start diet yet. I have told her to notify nursing should she feel much better, and we can consider starting a diet, reducing pain medication. Lipase was rechecked x1 and decreased Status: Acute (3) Anemia: Patient with evidence of chronic anemia, with low folate level on recent laboratory Continue folate Protonix 40 mg IV every 12 hours Hemoglobin has drifted down with hydration as expected Repeat tomorrow No reason for transfusion currently. Status: Acute (4) Tobacco dependency: Nicotine patch Encourage abstinence Counseling 3 minutes provided. Status: Acute Plan Lovenox at this time for DVT prophylaxis Full code Attestations Medical Necessity Statement*: Needs continued hospitalization secondary to persistent nausea, persistent pain in this patient with acute pancreatitis. Coding Level of Care Code Acute [employer]ler for Shila Mcallister Diagnoses Intractable nausea and vomiting R11.2 Pancreatitis K85.90 Anemia D64.9 Tobacco dependency F17.200
[2021-10-19] MEDS: enoxaparin 40 mg/0.4 mL Syringe SUBCUT (13:27)
[2021-10-19] MEDS: sodium chloride 0.9% 1,000 ML 100 ML IV ×2 (13:27→22:32)
[2021-10-19] MEDS: nicotine 21 mg Patch 1 PATCH TRANSDERMA (13:28)
[2021-10-20 03:24] VITALS: RESP 20
[2021-10-20 04:00] VITALS: BP 143/97; PULSE 109; RESP 14; TEMP 37.3; O2SAT 92
[2021-10-20 05:22] LABS: Basophils % 0.4 %; Eosinophils # 0.5 10^3/uL (0.0-0.8); Eosinophils % 9.6 %; Hemoglobin 7.7 g/dL (11.5-15.3); Lymphocytes # 1.1 10^3/uL (0.8-4.8); Lymphocytes % 21.8 %; Mean Corpuscular HGB Conc 30.8 g/dL (30.0-36.0); Mean Corpuscular Hemoglobin 39.9 pg (28.0-34.0); Mean Corpuscular Volume 129.5 fl (81-99); Mean Platelet Volume 10.2 fL (7.4-10.4); Monocytes # 0.2 10^3/uL (0.2-0.9); Monocytes % 4.4 %; Neutrophils # 3.17 10^3/uL (1.8-7.7); Neutrophils % 63.4 %; Nucleated Red Blood Cells % 0 %; Platelet Count 238 10^3/cmm (130-400); Red Blood Count 1.93 10^6/uL (4.1-5.3); Red Cell Distribution Width 15.4 % (12.1-15.1)
[2021-10-20] MEDS: pantoprazole 40 mg SDV IVP (05:30)
[2021-10-20] MEDS: ondansetron 2 mg/ML SDV 2 mL 4 MG IVP ×2 (05:30→09:49)
[2021-10-20 05:52] LABS: Alanine Aminotransferase 25 U/L (0-33); Albumin Level 3.4 g/dL (3.5-5.2); Alkaline Phosphatase 144 U/L (35-105); Aspartate Amino Transferase 59 U/L (0-32); Blood Urea Nitrogen 3 mg/dL (6-20); Calcium 8.7 mg/dL (8.5-10.5); Carbon Dioxide 19 mmol/L (22-29); Chloride 108 mmol/L (98-107); Globulin 3.4 g/dL (1.3-4.6); Glomerular Filtration Rate 129.6 mL/min (90-130); Glucose 83 mg/dL (65-115); Osmolality Calculated 282 mOsm/kg (285-295); Sodium 138 mmol/L (136-145); Total Bilirubin 0.7 mg/dL (0.15-1.2); Total Protein 6.8 g/dL (6.6-8.7)
[2021-10-20 06:00] VITALS: PULSE 110
[2021-10-20 08:00] VITALS: BP 145/89; PULSE 100; PULSE 114; RESP 16; RESP 18; TEMP 37.2; O2SAT 94; O2SAT 96
[2021-10-20 09:49] VITALS: RESP 18
[2021-10-20] MEDS: morphine 4 mg/mL SDV 1 mL 2 MG IVP (09:49)
[2021-10-20] MEDS: folic acid 1 mg Tablet PO (09:50)
[2021-10-20] MEDS: thiamine 100 mg Tablet PO (09:50)
[2021-10-20] MEDS: multivitamin therapeutic Tablet 1 TAB PO (09:50)
--- NOTE | 2021-10-20 10:19 | PC.NURSE ---
Pt requesting to leave AMA patient anxious, crying, patient stating i dont want to be here, I wan my boyfriend to come get me reviewed risks and benefits of patient leaving AMA, pt verbalizes understanding including risk of . TISHA formed signed and Dr. Coon notified. IV removed.
--- NOTE | 2021-10-20 11:54 | P.PN_ITS ---
Subjective Subjective: Patient seen earlier this morning.. Said she wanted to try some clear liquids. Tired of her roommate and wanting moved. Abdominal discomfort is improved. Medications: Reviewed: Yes Vitals/I&O/Wt Last Vital Signs Temp 99.0 F 10/20/21 08:00 Pulse 100 10/20/21 08:00 Resp 18 10/20/21 09:49 BP 145/89 10/20/21 08:00 Pulse Ox 96 10/20/21 08:00 O2 Del Method 10/20/21 08:00 10/19/21 10/20/21 10/20/21 22:59 06:59 14:59 Intake Total 908.333 / 1908.333 Output Total 200 / 200 Balance 708.333 / 1708.333 Weight last 48 hrs Weight 78.925 kg Physical Exam Narrative: General exam is white female, complaining of abdominal discomfort. She does not appear to be withdrawing currently and is not tremulous. Neck is supple no lymphadenopathy or thyromegaly Cardiovascular regular rate and rhythm without murmur. Lungs clear no wheezing or crackles Abdomen is soft. Positive bowel sounds. Tenderness epigastric area is less Extremities no cyanosis clubbing or edema, cap refill brisk Data : 10/20/21 04:46 10/20/21 04:46 A&P Assessment and plan (1) Intractable nausea and vomiting: Patient presents with intractable nausea and vomiting. This is likely secondary to acute pancreatitis, although could be secondary to alcoholic gastritis or THC use. Nausea control with Zofran Continue hydration Counseled on avoiding marijuana and alcohol Continue Protonix IV Patient reports she is significantly better Start clear liquids Status: Acute (2) Pancreatitis: Patient with evidence of acute pancreatitis She has had multiple CTs and abdominal ultrasounds. I do not see a reason to reimage her currently. If she clinically worsens we can do it then. Pain control, nausea control Counseled on alcohol avoidance [facility] protocol in case withdrawal occurs Multivitamin, folate, thiamine Offer rehabilitation resources Start clear liquid diet Status: Acute (3) Anemia: Patient with evidence of chronic anemia, with low folate level on recent laboratory Continue folate Protonix 40 mg IV every 12 hours Hemoglobin has drifted down with hydration as expected Overall this is stable Status: Acute (4) Tobacco dependency: Nicotine patch Encourage abstinence Counseling 3 minutes provided. Status: Acute Plan Lovenox at this time for DVT prophylaxis Full code Attestations Medical Necessity Statement*: Needs continued hospitalization secondary to intractable nausea and vomiting, pancreatitis, currently trying to refeed Coding Level of Care Code Acute Insurance Commissioner for [facility] Fwd Diagnoses Intractable nausea and vomiting R11.2 Pancreatitis K85.90 Anemia D64.9 Tobacco dependency F17.200
--- NOTE | 2021-10-20 11:56 | W.PM.EVENTAC ---
Event Note Event Note: Informed by nursing that patient is going AGAINST MEDICAL ADVICE. Nursing attempted to go back and discussed with her her concerns, but she was adamant that she would leave and signed out.
== END 2021-10-20 10:20 | disposition left against medical advice (07) | DRG 439 ==
LOC: ER 06:57 → MEDSURG 12:12
PROVIDERS: Admitting Provider Internal Medicine; Emergency Provider Family Medicine; PCP Family Medicine; Visit Provider Internal Medicine
DX: K85.20 Alcohol induced acute pancreatitis without necrosis or infection (principal); D61.818 Other pancytopenia; D64.9 Anemia, unspecified; F10.10 Alcohol abuse, uncomplicated; J44.9 Chronic obstructive pulmonary disease, unspecified; F17.200 Nicotine dependence, unspecified, uncomplicated; R11.2 Nausea with vomiting, unspecified; Z53.29 Procedure and treatment not carried out because of patient's decision for other reasons
CPT/HCPCS: 36415; 80053; 80307; 81001; 83690; 83735; 84439; 84443; 84481; 85025; 93005; 94640; 96372; 96374; 96375; 96376; 99285; C9113; J1630; J1650; J2270; J2405; J3411; J3475; J3490; J7030; J7626

== ENCOUNTER 2021-11-26 13:34 | Observation (INO) | payer MEDICAID, SELFPAY ==
[2021-11-26] VITALS (8 sets, daily range): BP systolic 106–148; BP diastolic 70–108; PULSE 85–120; RESP 16–20; TEMP 35.9–36.6; O2SAT 97–100; BMI 29.3
--- NOTE | 2021-11-26 15:08 | ED_ITS ---
HPI - General Adult General: Chief complaint: Abdominal Pain Stated complaint: Abd pain Time Seen by Provider: 11/26/21 14:49 History of Present Illness: Patient is a 50-year-old female history of UTI, chronic alcohol dependence, renal colic presenting to the emergency room for concerns of nausea vomiting bilateral flank pain and chills. Patient reports pain started 1 week ago after last time she drank alcohol. Patient tells me that she has been having right-sided flank pain a week ago. Since then, the flank pain is progressed to the left side. Patient has also associated nausea and vomiting and chills. Patient denies any burning with urination but reports pain with urination. Patient denies any new vaginal discharge or vaginal bleeding. Patient denies any diarrhea, melena/hematochezia. Patient denies any cough, runny nose sore throat, chest pain or shortness breath. Patient has a history of hysterectomy. No other prior abdominal surgeries. Onset:1 week ago Duration:1 week Location:home Severity:moderate Associated symptoms: Reports nausea and vomiting; Deny chest pain, dyspnea, rash or palpitations Review of Systems Const: Denies: fever(s) or chills Eyes: Denies: change in vision ENMT: Denies: mouth pain Card: Denies: chest pain or palpitations Resp: Denies: dyspnea or non-productive cough GI: Reports: nausea and vomiting; Denies: abdominal pain or diarrhea : Reports: flank pain, dysuria and other Musc: Denies: extremity pain Skin/Breast: Denies: rash or new lesions Neuro: Denies: weakness in extremities Psych: Reports: other (Normal mood) Eric/Lymph: Denies: easy bruising PFS ED PFSH: Medical History Alcohol withdrawal Alcoholism Anemia Carpal tunnel syndrome Chronic back pain Chronic pancreatitis Cirrhosis Enteritis GERD (gastroesophageal reflux disease) H. pylori infection Hepatitis A Hypokalemia Intractable nausea and vomiting Sciatica Tobacco dependency Surgical History H/O rotator cuff surgery H/O: hysterectomy History of appendectomy History of cholecystectomy Family History Denies family history of Diabetes CAD (coronary artery disease) Dementia Social History Smoking and tobacco status: current every day smoker Alcohol intake: current Desire information about alcohol rehabilitation?: No Counseling given: Yes Last alcohol use date: 02/15/19 Physical Exam Const: COMMON NORMALS: alert HENMT: COMMON NORMALS: atraumatic HEAD & SCALP: atraumatic MOUTH: moist mucous membranes abnormal Eye: COMMON NORMALS: EOMs intact bilaterally and conjunctivae normal CONJUNCTIVA: Yes conjunctivae normal Neck/C-Spine: COMMON NORMALS: full ROM and supple Resp: COMMON NORMALS: normal respiratory effort and clear to auscultation bilaterally AUSCULTATION: clear to auscultation bilaterally Cardio: COMMON NORMALS: regular rate RATE: regular rate GI: COMMON NORMALS: Soft to palpation and non-tender PALPATION: Yes Soft to palpation OTHER: +mild dffuse focal TTP. NO guarding rebound, guarding, rigidity. +b/l CVA tenderness to percussion. Neg Pena/Neg McBurney's point tenderness, no suprabupic tenderness to palpation. Extremity: COMMON NORMALS: full ROM Neuro: SENSORIUM/ORIENTATION: Yes alert MOTOR EXAM: No Abnormal motor strength present and Other motor observations present (no focal motor deficits) Psych: COMMON NORMALS: speech normal SPEECH: Yes normal speech MOOD & AFFECT: Yes euthymic mood Course Vital Signs: Vital signs: Vital Signs Temperature 96.6 F L 11/26/21 13:50 Pulse Rate 98 11/26/21 16:18 Respiratory Rate 16 11/26/21 16:18 Blood Pressure 136/88 11/26/21 16:18 Pulse Oximetry 97 11/26/21 16:18 Oxygen Delivery Me thod 11/26/21 16:18 MDM - General Adult Medical Decision Making Patient is a 50-year-old female history of UTI, chronic alcohol dependence, renal colic presenting to the emergency room for concerns of nausea/vomiting, bilateral flank pain and chills. She is noted to have dry mucous membrane. Last alcohol drink was 5 days ago. Patient is not in acute alcohol withdrawal. Patient's lab work-up is consistent with alcoholic ketoacidosis. She received IVF. UA is consistent possible UTI. Disposition: admission Lab Data : 11/26/21 15:48 11/26/21 15:48 Radiology Impressions Abdomen/Pelvis CT 11/26/21 15:09 IMPRESSION: 1. Comparison CT 09/28/2021. 2. Interval improvement of hepatomegaly/hepatic steatosis. No discrete mass or cirrhosis. 3. Interval resolution of previously noted distal ileitis/proximal colitis. No acute bowel findings otherwise. 4. Interval worsening of extrahepatic and intrahepatic biliary ductal dilatation which could be related to normal status post cholecystectomy. However distal CBD obstruction should be excluded. Clinical/LFT correlation should be obtained. Followup imaging/GI consultation may also be considered if clinically indicated. 5. Other nonacute findings as described. Laboratory Results WBC 3.5 10^3/uL (4.0-10.0) L 11/26/21 15:48 RBC 3.27 10^6/uL (4.1-5.3) L 11/26/21 15:48 Hgb 11.5 g/dL (11.5-15.3) 11/26/21 15:48 Hct 35.0 % (37.0-47.0) L 11/26/21 15:48 MCV 107.0 fl (81-99) H 11/26/21 15:48 MCH 35.2 pg (28.0-34.0) H 11/26/21 15:48 MCHC 32.9 g/dL (30.0-36.0) 11/26/21 15:48 RDW 18.5 % (12.1-15.1) H 11/26/21 15:48 Plt Count 180 10^3/cmm (130-400) 11/26/21 15:48 MPV 12.1 fL (7.4-10.4) H 11/26/21 15:48 Neut % (Auto) 58.7 % 11/26/21 15:48 Lymph % (Auto) 25.6 % 11/26/21 15:48 [place] % (Auto) 8.1 % 11/26/21 15:48 Eos % (Auto) 5.8 % 11/26/21 15:48 Baso % (Auto) 1.2 % 11/26/21 15:48 Neut # (Auto) 2.04 10^3/uL (1.8-7.7) 11/26/21 15:48 Lymph # (Auto) 0.9 10^3/uL (0.8-4.8) 11/26/21 15:48 [place] # (Auto) 0.3 10^3/uL (0.2-0.9) 11/26/21 15:48 Eos # (Auto) 0.2 10^3/uL (0.0-0.8) 11/26/21 15:48 Baso # (Auto) 0.0 10^3/uL (0.0-0.1) 11/26/21 15:48 Nucleated RBC % (auto) 0 % 11/26/21 15:48 Nucleated RBCs # 0.0 /100WBC 11/26/21 15:48 Sodium 126 mmol/L (136-145) L 11/26/21 15:48 Potassium 3.0 mmol/L (3.5-5.1) L 11/26/21 15:48 Chloride 84 mmol/L (98-107) L 11/26/21 15:48 Carbon Dioxide 15 mmol/L (22-29) L 11/26/21 15:48 Anion Gap 30.0 (5-19) H 11/26/21 15:48 BUN 20 mg/dL (6-20) 11/26/21 15:48 Creatinine 0.9 mg/dL (0.5-0.9) 11/26/21 15:48 GFR Calculation 65.8 mL/min (90-130) L 11/26/21 15:48 Glucose 70 mg/dL (65-115) 11/26/21 15:48 Calculated Osmolality 263 mOsm/kg (285-295) L 11/26/21 15:48 Lactate 1.0 mmol/L (0.5-2.2) 11/26/21 15:48 Calcium 10.4 mg/dL (8.5-10.5) 11/26/21 15:48 Total Bilirubin 1.3 mg/dL (0.15-1.2) H 11/26/21 15:48 AST 129 U/L (0-32) H 11/26/21 15:48 ALT 79 U/L (0-33) H 11/26/21 15:48 Alkaline Phosphatase 218 U/L (35-105) H 11/26/21 15:48 Total Protein 9.6 g/dL (6.6-8.7) H 11/26/21 15:48 Albumin 4.9 g/dL (3.5-5.2) 11/26/21 15:48 Globulin 4.7 g/dL (1.3-4.6) H 11/26/21 15:48 Lipase 44 U/L (13-60) 11/26/21 15:48 Urine Color Yellow (Yellow) 11/26/21 14:45 Urine Appearance Sl hazy (CLEAR) A 11/26/21 14:45 Urine pH 6 (5-7) 11/26/21 14:45 Ur Specific [place] 1.020 (1.005-1.030) 11/26/21 14:45 Urine Protein Trace (Negative) 11/26/21 14:45 Urine Glucose (UA) Norm (Normal) 11/26/21 14:45 Urine Ketones 3+ (Negative) H 11/26/21 14:45 Urine Blood Neg (Negative) 11/26/21 14:45 Urine Nitrate Negative (Negative) 11/26/21 14:45 Urine Bilirubin 1+ (Negative) H 11/26/21 14:45 Urine Urobilinogen 1 mg/dL (Negative) H 11/26/21 14:45 Ur Leukocyte Esterase Trace (Negative) H 11/26/21 14:45 Urine RBC None /hpf (0-2) 11/26/21 14:45 Urine WBC 5-10 /hpf (0-5) H 11/26/21 14:45 Ur Squamous Epith Cells 5-10 /hpf (0-5) H 11/26/21 14:45 Amorphous Sediment Not Reportable 11/26/21 14:45 Urine Bacteria 1+ /hpf (NONE) H 11/26/21 14:45 Urine Yeast Trace /hpf 11/26/21 14:45 Imaging Data Other Imaging: Radiologist's impression: [address] [address] [address] Scan Report Signed Patient: Melissa Portillo Unit #: [id number] : 1970 Age/Sex: 50 / F ADM Date: 11/26/21 Loc: ER Room/Bed: Attending Dr: Ordering Provider/Ordering MD: Mike Toscano MD Date of Service: 11/26/21 Procedure(s): CT abdomen pelvis w con* [id number] Accession Number(s): [id number] Report Number: [id number] PROCEDURE INFORMATION: Exam: CT Abdomen And Pelvis With Contrast Exam date and time: 11/26/2021 4:26 PM Age: 50 years old Clinical indication: Abdominal pain; Prior surgery; Surgery type: Cholecystectomy; Hysterectomy; Appendectomy; Additional info: Abd pain TECHNIQUE: Imaging protocol: Computed tomography of the abdomen and pelvis with contrast. Radiation optimization: All CT scans at this facility use at least one of these dose optimization techniques: automated exposure control; mA and/or kV adjustment per patient size (includes targeted exams where dose is matched to clinical indication); or iterative reconstruction. Contrast material: OMNIPAQUE 350; Contrast volume: 80 ml; Contrast route: INTRAVENOUS (IV);? COMPARISON: CT abdomen pelvis w con* [id number] 09/28/2021 9:09 PM RADIATION DOSE METRICS: Total DLP (mGy-cm): 600.75 FINDINGS: Lungs: A few calcified pulmonary granulomas in the lung bases. Liver: See Lungs finding. Interval improvement of diffuse hepatomegaly and hepatic steatosis. No cirrhosis or suspicious mass. Gallbladder and bile ducts: Cholecystectomy clips. Mild intrahepatic bile duct dilatation. Moderate extrahepatic bile duct dilatation with distal CBD measuring up to 14 mm versus 9 mm on the previous exam. No calcified intraductal calculi. Pancreas: Normal. No ductal dilation. Spleen: Normal. No splenomegaly. Adrenal glands: Normal. No mass. Kidneys and ureters: No obstructing calculus. No hydronephrosis. Stomach and bowel: Low-moderate stool burden. Previously noted distal ileitis/colitis has resolved. No suspicious bowel wall thickening or pneumatosis. Appendix: Prior appendectomy. Intraperitoneal space: Unremarkable. No free air. No significant fluid collection. Vasculature: Small tortuous and slightly prominent IMV and distal branches, unchanged. No large branch venous thrombosis. Evidence of distal rectal surgical suture with no obvious acute regional complication. Lymph nodes: No enlarged lymph nodes. Urinary bladder: Unremarkable as visualized. Reproductive: Prior hysterectomy. Bones/joints: No acute fracture.? Soft tissues: No acute findings. CT/CT abdomen pelvis w con* [id number] IMPRESSION: 1. Comparison CT 09/28/2021. 2. Interval improvement of hepatomegaly/hepatic steatosis. No discrete mass or cirrhosis. 3. Interval resolution of previously noted distal ileitis/proximal colitis. No acute bowel findings otherwise. 4. Interval worsening of extrahepatic and intrahepatic biliary ductal dilatation which could be related to normal status post cholecystectomy. However distal CBD obstruction should be excluded. Clinical/LFT correlation should be obtained. Followup imaging/GI consultation may also be considered if clinically indicated. 5. Other nonacute findings as described. ? Dictated By: Crispin Ellis MD Signed By: Crispin Ellis MD Signed Date/Time: 11/26/21 1702 DD/ 1626 Discharge Plan Discharge Patient Disposition: Admitted As Inpatient Clinical Impression: Alcoholic ketoacidosis, Acute dehydration Condition: Stable Coding Level of Care Code ED Blister Pack Operator for [facility]g Fwd Exam Comprehensive
[2021-11-26 15:37] LABS: Blood Urine Neg (Negative); Glucose Urine UA Norm (Normal); Ketones Urine 3+ (Negative); Protein Urine Trace (Negative); Urine Appearance SL Hazy (CLEAR); Urine Color Yellow (Yellow); pH Urine 6 (5-7)
[2021-11-26 15:38] LABS: Add Urine Microscopic? YES; Bilirubin Urine 1+ (Negative); Leukocyte Esterase Urine Trace (Negative); Nitrate Urine Negative (Negative); Urobilinogen Urine 1 mg/dL (Negative)
[2021-11-26] MEDS: sodium chloride 0.9% 1,000 ML 999 ML IV ×2 (15:38→16:52)
[2021-11-26 15:39] LABS: Add Urine Culture? No; Bacteria Urine 1+ /hpf
[2021-11-26] MEDS: ondansetron 2 mg/ML SDV 2 mL 4 MG IVP (15:42)
[2021-11-26] MEDS: morphine 4 mg/mL SDV 1 mL IVP (15:42)
--- NOTE | 2021-11-26 15:52 | PC.NURSE ---
PATIENT IV ACCESS INFILTRATED. PROVIDER NOTIFIED. ULTRASOUND NEEDED TO PLACE. CHARGE NURSE NOTIFIED.
[2021-11-26 16:05] LABS: Basophils % 1.2 %; Eosinophils # 0.2 10^3/uL (0.0-0.8); Eosinophils % 5.8 %; Hemoglobin 11.5 g/dL (11.5-15.3); Lymphocytes # 0.9 10^3/uL (0.8-4.8); Lymphocytes % 25.6 %; Mean Corpuscular HGB Conc 32.9 g/dL (30.0-36.0); Mean Corpuscular Hemoglobin 35.2 pg (28.0-34.0); Mean Platelet Volume 12.1 fL (7.4-10.4); Monocytes # 0.3 10^3/uL (0.2-0.9); Monocytes % 8.1 %; Neutrophils # 2.04 10^3/uL (1.8-7.7); Neutrophils % 58.7 %; Nucleated Red Blood Cells % 0 %; Platelet Count 180 10^3/cmm (130-400); Red Blood Count 3.27 10^6/uL (4.1-5.3); Red Cell Distribution Width 18.5 % (12.1-15.1); White Blood Count 3.5 10^3/uL (4.0-10.0)
[2021-11-26] MEDS: iohexol 350 mg/mL 100 mL Btl IV (16:29)
[2021-11-26 16:37] LABS: Alanine Aminotransferase 79 U/L (0-33); Albumin Level 4.9 g/dL (3.5-5.2); Alkaline Phosphatase 218 U/L (35-105); Aspartate Amino Transferase 129 U/L (0-32); Blood Urea Nitrogen 20 mg/dL (6-20); Calcium 10.4 mg/dL (8.5-10.5); Carbon Dioxide 15 mmol/L (22-29); Chloride 84 mmol/L (98-107); Globulin 4.7 g/dL (1.3-4.6); Glomerular Filtration Rate 65.8 mL/min (90-130); Glucose 70 mg/dL (65-115); Lipase 44 U/L (13-60); Osmolality Calculated 263 mOsm/kg (285-295); Sodium 126 mmol/L (136-145); Total Bilirubin 1.3 mg/dL (0.15-1.2); Total Protein 9.6 g/dL (6.6-8.7)
--- NOTE | 2021-11-26 18:09 | P.HP_ITS ---
Providers/Chief Complaint Primary Care Provider: Aditya Degroot DO Chief Complaint: Abd pain History of Present Illness Melissa Portillo is a 50 year old female who carries history of alcohol abuse, last drink was 7 days ago, presented with recurrent nausea and vomiting. Patient is denying using marijuana at home. Patient is stating that 7 days ago she started having nausea and vomiting, not to suppress her nausea as she started drinking again but was unable to keep anything down, roughly her last alcoholic drink was 7 days ago She drinks 1 gallon of vodka with 7-Up which she finishes within 2 days, she has had multiple admissions in the past for alcohol abuse, patient is stating that she was not treated right on last admission thus but she left AMA. 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 she started explaining numbness in her arms and legs, ataxia and burning sensation in her feet Review of Systems Const: Denies: fever(s) Eyes: Denies: change in vision ENMT: Denies: throat pain Card: Denies: chest pain Resp: Denies: dyspnea GI: Reports: nausea and vomiting : Denies: flank pain Musc: Denies: neck pain Skin/Breast: Denies: rash Neuro: Denies: headache(s) Psych: Reports: anxiety Endo: Denies: polyuria Eric/Lymph: Denies: easy bruising All/Imm: Denies: urticaria Medications/Allergies Home Medications Medication Instructions Recorded Confirmed Last Taken Type omeprazole 40 mg capsule,delayed 40 mg PO DAILY 10/18/21 11/26/21 11/25/21 History release Allergies Allergy/AdvReac Type Severity Reaction Status Date / Time codeine Allergy ALGY-Hives Verified 10/18/21 09:20 ketorolac [From Toradol] Allergy ALGY-Rash Verified 10/18/21 09:20 naproxen [From Naprosyn] Allergy ADR-Vomitin Verified 10/18/21 09:20 g prochlorperazine Allergy ALGY-Swell Verified 10/18/21 09:20 [From Compazine] Lip/Tongue/Throat PFSH Acute PFSH: Medical History Alcohol withdrawal Alcoholism Anemia Carpal tunnel syndrome Chronic back pain Chronic pancreatitis Cirrhosis Enteritis GERD (gastroesophageal reflux disease) H. pylori infection Hepatitis A Hypokalemia Intractable nausea and vomiting Sciatica Tobacco dependency Surgical History H/O rotator cuff surgery H/O: hysterectomy History of appendectomy History of cholecystectomy Family History Denies family history of Diabetes CAD (coronary artery disease) Dementia Social History Smoking and tobacco status: current every day smoker Alcohol intake: current Desire information about alcohol rehabilitation?: No Counseling given: Yes Last alcohol use date: 02/15/19 Vitals/I&O/Wt Last Vital Signs Temp 96.6 F L 11/26/21 13:50 Pulse 98 11/26/21 16:18 Resp 16 11/26/21 16:18 BP 136/88 11/26/21 16:18 Pulse Ox 97 11/26/21 16:18 O2 Del Method 11/26/21 16:18 11/26/21 11/26/21 11/26/21 06:59 14:59 22:59 Intake Total 1999 Balance 1999 Weight last 48 hrs Weight 77.564 kg Physical Exam Narrative: Clinically dehydrated [place] Muscle mass loss at the bedside Awake and alert S1, S2 sinus tachycardia Abdomen soft Edentulous Malnourished Awake and alert Nonfocal neuro exam Currently on room air Anxious, emotionally labile Data : 11/26/21 15:48 11/26/21 15:48 A&P Assessment and plan (1) Alcoholic ketoacidosis: (2) Acute dehydration: (3) Intractable nausea and vomiting: (4) Abdominal pain: (5) Anxiety: Plan Alcohol-related starvation ketosis Alcohol-related gastropathy Start Reglan alternate with Zofran Most likely she has neuropathy related to alcohol Also complaining of burning sensation in her feet I will start her Lyrica and gabapentin at the time of discharge Continue IV fluids, will give high-dose thiamine and folic acid Check phosphorus and magnesium At risk of refeeding syndrome Full code Regular diet DVT prophylaxis Lovenox She has history of alcohol-related bone marrow suppression however for now there is leukopenia without thrombocytopenia or anemia CBD dilation evaluation with MRCP on Sunday clinically she is not jaundiced Afebrile She is not complaining abdominal pain for now Attestations Medical Necessity Statement*: Less than 2 midnights anticipated for recurrent nausea vomiting Time Spent in Patient Care: 40 Coding Level of Care Code Acute Senior Site Manager for g Fwd Diagnoses Alcoholic ketoacidosis E87.29 Acute dehydration E86.0 Intractable nausea and vomiting R11.2 Abdominal pain R10.9 Anxiety F41.9
[2021-11-26] MEDS: morphine IR 15 mg Tablet PO (20:04)
[2021-11-26] MEDS: ALPRAZolam 0.5 mg Tablet PO (20:04)
[2021-11-26] MEDS: enoxaparin 40 mg/0.4 mL Syringe SUBCUT (20:05)
[2021-11-26] MEDS: sodium chloride 0.9% 1,000 ML 100 ML IV (20:05)
[2021-11-26] MEDS: lidocaine 1% 5 ML in potassium chloride premix 100 ML 25 ML IV (21:27)
[2021-11-27] VITALS (8 sets, daily range): BP systolic 96–102; BP diastolic 58–63; PULSE 82–100; RESP 16–18; TEMP 36.6–36.7; O2SAT 98–99
[2021-11-27] MEDS: ondansetron 2 mg/ML SDV 2 mL 4 MG IVP (01:20)
[2021-11-27] MEDS: morphine IR 15 mg Tablet PO ×2 (01:56→09:04)
[2021-11-27] MEDS: sodium chloride 0.9% 1,000 ML 100 ML IV (05:09)
[2021-11-27 06:08] LABS: Basophils % 0.6 %; Eosinophils # 0.2 10^3/uL (0.0-0.8); Eosinophils % 6.7 %; Hematocrit 27.2 % (37.0-47.0); Hemoglobin 8.7 g/dL (11.5-15.3); Lymphocytes # 1.4 10^3/uL (0.8-4.8); Lymphocytes % 40.2 %; Mean Corpuscular Hemoglobin 34.9 pg (28.0-34.0); Mean Corpuscular Volume 109.2 fl (81-99); Monocytes # 0.5 10^3/uL (0.2-0.9); Monocytes % 13.2 %; Neutrophils # 1.33 10^3/uL (1.8-7.7); Nucleated Red Blood Cells % 0 %; Platelet Count 139 10^3/cmm (130-400); Red Blood Count 2.49 10^6/uL (4.1-5.3); Red Cell Distribution Width 19.2 % (12.1-15.1); White Blood Count 3.4 10^3/uL (4.0-10.0)
[2021-11-27 06:45] LABS: Alanine Aminotransferase 47 U/L (0-33); Albumin Level 3.4 g/dL (3.5-5.2); Alkaline Phosphatase 177 U/L (35-105); Aspartate Amino Transferase 65 U/L (0-32); Blood Urea Nitrogen 14 mg/dL (6-20); Calcium 8.6 mg/dL (8.5-10.5); Carbon Dioxide 18 mmol/L (22-29); Chloride 103 mmol/L (98-107); Globulin 3.3 g/dL (1.3-4.6); Glomerular Filtration Rate 87.9 mL/min (90-130); Glucose 97 mg/dL (65-115); Osmolality Calculated 280 mOsm/kg (285-295); Sodium 135 mmol/L (136-145); Total Protein 6.7 g/dL (6.6-8.7)
[2021-11-27 06:49] LABS: Anion Gap 17.6 (5-19); Potassium 3.6 mmol/L (3.5-5.1)
[2021-11-27] MEDS: ALPRAZolam 0.5 mg Tablet PO (09:04)
[2021-11-27] MEDS: pregabalin 25 mg Capsule PO (09:04)
[2021-11-27] MEDS: folic acid 1 mg Tablet PO (09:05)
[2021-11-27] MEDS: magnesium oxide 400 mg tablet PO (09:05)
[2021-11-27] MEDS: PHENobarbital 32.4 mg Tablet PO (09:05)
[2021-11-27] MEDS: pantoprazole DR 40 mg Tablet PO (09:05)
--- NOTE | 2021-11-27 10:03 | P.DS_ITS ---
Discharge Providers Date of Admission: 11/26/21 19:35 Date of Discharge: November 27, 2021 Attending Provider at Admission: Angel Luis Lundy MD Attending Provider at Discharge: Kathie Pulido MD Primary Care Provider: Aditya Degroot DO Diagnoses at Discharge Discharge Diagnosis (1) Alcoholic ketoacidosis: Status: Acute (2) Acute dehydration: Status: Acute (3) Intractable nausea and vomiting: Status: Acute (4) Abdominal pain: Status: Acute (5) Anxiety: Status: Acute Reason for Visit Reason for Visit: Abd pain Hospital Course Hospital Course 50-year female with history of alcohol abuse presented to hospital for recurrent nausea and vomiting, she has not eaten well in last 7 days, her last alcohol drink was about 7 days ago, she is suffering from alcohol-related gastropathy and neuropathy, I have started her on Lyrica, give her Reglan and Zofran for few days, in the hospital her electrolytes were replenished, magnesium and phosphorus recommended no significant arrhythmias noted, no signs of withdrawal, she tolerated her diet which was bland, I did tell her that she needs to quit d rinking alcohol otherwise she will come to the hospital for severe dehydration and more complications. Physical Exam Narrative: Patient slightly well-hydrated today as compared to yesterday Awake and alert No active emesis at the bedside Currently on room air Nonfocal neuro exam Pleasant during my evaluation Discharge Data Studies Completed and Pending Completed Studies During Hospitalization Category Date Time Status CT abdomen pelvis w con* [id number] Stat Cat Scan 11/26/21 15:09 Completed Radiology Impressions Abdomen/Pelvis CT 11/26/21 15:09 IMPRESSION: 1. Comparison CT 09/28/2021. 2. Interval improvement of hepatomegaly/hepatic steatosis. No discrete mass or cirrhosis. 3. Interval resolution of previously noted distal ileitis/proximal colitis. No acute bowel findings otherwise. 4. Interval worsening of extrahepatic and intrahepatic biliary ductal dilatation which could be related to normal status post cholecystectomy. However distal CBD obstruction should be excluded. Clinical/LFT correlation should be obtained. Followup imaging/GI consultation may also be considered if clinically indicated. 5. Other nonacute findings as described. Laboratory Results WBC 3.4 10^3/uL (4.0-10.0) L 11/27/21 05:21 RBC 2.49 10^6/uL (4.1-5.3) L 11/27/21 05:21 Hgb 8.7 g/dL (11.5-15.3) L 11/27/21 05:21 Hct 27.2 % (37.0-47.0) L 11/27/21 05:21 MCV 109.2 fl (81-99) H 11/27/21 05:21 MCH 34.9 pg (28.0-34.0) H 11/27/21 05:21 MCHC 32.0 g/dL (30.0-36.0) 11/27/21 05:21 RDW 19.2 % (12.1-15.1) H 11/27/21 05:21 Plt Count 139 10^3/cmm (130-400) 11/27/21 05:21 MPV 12.0 fL (7.4-10.4) H 11/27/21 05:21 Neut % (Auto) 39.0 % 11/27/21 05:21 Lymph % (Auto) 40.2 % 11/27/21 05:21 [place] % (Auto) 13.2 % 11/27/21 05:21 Eos % (Auto) 6.7 % 11/27/21 05:21 Baso % (Auto) 0.6 % 11/27/21 05:21 Neut # (Auto) 1.33 10^3/uL (1.8-7.7) L 11/27/21 05:21 Lymph # (Auto) 1.4 10^3/uL (0.8-4.8) 11/27/21 05:21 [place] # (Auto) 0.5 10^3/uL (0.2-0.9) 11/27/21 05:21 Eos # (Auto) 0.2 10^3/uL (0.0-0.8) 11/27/21 05:21 Baso # (Auto) 0.0 10^3/uL (0.0-0.1) 11/27/21 05:21 Nucleated RBC % (auto) 0 % 11/27/21 05:21 Nucleated RBCs # 0.0 /100WBC 11/27/21 05:21 Sodium 135 mmol/L (136-145) L 11/27/21 05:21 Potassium 3.6 mmol/L (3.5-5.1) 11/27/21 05:21 Chloride 103 mmol/L (98-107) 11/27/21 05:21 Carbon Dioxide 18 mmol/L (22-29) L 11/27/21 05:21 Anion Gap 17.6 (5-19) 11/27/21 05:21 BUN 14 mg/dL (6-20) 11/27/21 05:21 Creatinine 0.7 mg/dL (0.5-0.9) 11/27/21 05:21 GFR Calculation 87.9 mL/min (90-130) L 11/27/21 05:21 Glucose 97 mg/dL (65-115) 11/27/21 05:21 Calculated Osmolality 280 mOsm/kg (285-295) L 11/27/21 05:21 Lactate 1.0 mmol/L (0.5-2.2) 11/26/21 15:48 Calcium 8.6 mg/dL (8.5-10.5) 11/27/21 05:21 Phosphorus 2.0 mg/dL (2.5-4.5) L 11/27/21 05:21 Magnesium 1.0 mg/dL (1.7-2.3) L 11/27/21 05:21 Total Bilirubin 1.0 mg/dL (0.15-1.2) 11/27/21 05:21 AST 65 U/L (0-32) H 11/27/21 05:21 ALT 47 U/L (0-33) H 11/27/21 05:21 Alkaline Phosphatase 177 U/L (35-105) H 11/27/21 05:21 Total Protein 6.7 g/dL (6.6-8.7) D 11/27/21 05:21 Albumin 3.4 g/dL (3.5-5.2) L 11/27/21 05:21 Globulin 3.3 g/dL (1.3-4.6) 11/27/21 05:21 Lipase 44 U/L (13-60) 11/26/21 15:48 Urine Color Yellow (Yellow) 11/26/21 14:45 Urine Appearance Sl hazy (CLEAR) A 11/26/21 14:45 Urine pH 6 (5-7) 11/26/21 14:45 Ur Specific [place] 1.020 (1.005-1.030) 11/26/21 14:45 Urine Protein Trace (Negative) 11/26/21 14:45 Urine Glucose (UA) Norm (Normal) 11/26/21 14:45 Urine Ketones 3+ (Negative) H 11/26/21 14:45 Urine Blood Neg (Negative) 11/26/21 14:45 Urine Nitrate Negative (Negative) 11/26/21 14:45 Urine Bilirubin 1+ (Negative) H 11/26/21 14:45 Urine Urobilinogen 1 mg/dL (Negative) H 11/26/21 14:45 Ur Leukocyte Esterase Trace (Negative) H 11/26/21 14:45 Urine RBC None /hpf (0-2) 11/26/21 14:45 Urine WBC 5-10 /hpf (0-5) H 11/26/21 14:45 Ur Squamous Epith Cells 5-10 /hpf (0-5) H 11/26/21 14:45 Amorphous Sediment Not Reportable 11/26/21 14:45 Urine Bacteria 1+ /hpf (NONE) H 11/26/21 14:45 Urine Yeast Trace /hpf 11/26/21 14:45 Vitals Last Vital Signs Temp 98.0 F 11/27/21 07:31 Pulse 82 11/27/21 09:20 Resp 16 11/27/21 09:20 BP 102/63 11/27/21 07:31 Pulse Ox 98 11/27/21 09:20 O2 Del Method 11/27/21 09:20 Discharge Plan Discharge Patient Disposition: Home Condition: Stable Prescriptions: New pregabalin 25 mg Capsule 25 mg PO DAILY Qty: 30 2RF oxycodone 5 mg tablet 5 mg PO DAILY Qty: 7 0RF folic acid 1 mg tablet 1 mg PO DAILY Qty: 60 0RF ondansetron HCl 4 mg tablet 4 mg PO DAILY PRN (Reason: nausea and vomiting) 4 Days Qty: 90 0RF Phospha 250 Neutral 250 mg tablet 1 tab PO DAILY Qty: 10 0RF magnesium 200 mg tablet 200 mg PO DAILY Qty: 20 0RF thiamine mononitrate (vit B1) 100 mg tablet 100 mg PO DAILY Qty: 90 1RF Continued omeprazole 40 mg capsule,delayed release(DR/EC) 40 mg PO DAILY Discharge Orders: Discharge Order (Routine); Ordered 11/27/21 Ordered By: Kathie Pulido Referrals: Aditya Degroot DO [Primary Care Provider] - 1-3 days Patient Instructions: Opioid Safety Discharge Attestations Time Spent in Discharge Care*: less than 30 min Status at Discharge: Cognitive status at discharge: cognitively intact , Behavioral status at discharge: cooperative , Quality Metrics Clinical Quality Measures [ No reported AMI, CVA or VTE this stay] Coding Level of Care Code Acute Chg FW DC note Diagnoses Alcoholic ketoacidosis E87.29 Acute dehydration E86.0 Intractable nausea and vomiting R11.2 Abdominal pain R10.9 Anxiety F41.9
[2021-11-27] MEDS: magnesium sulfate premix 2 GM/50 ML PIGGYBACK IV (10:30)
--- NOTE | 2021-11-27 14:04 | PC.NURSE ---
Disucssed discharge, making follow up appointments, obtain from Alcohol and new medications with patient. All questions answered and verbalized understanding.
== END 2021-11-27 14:00 | disposition home or self-care (01) ==
LOC: ER 17:15 → MEDSURG 11-27 05:00
PROVIDERS: Emergency Medicine; Admitting Provider Internal Medicine; Emergency Provider Emergency Medicine; PCP Family Medicine; Visit Provider Internal Medicine
DX: E87.29 Other acidosis (principal); E86.0 Dehydration; E10.9 Type 1 diabetes mellitus without complications; F41.9 Anxiety disorder, unspecified; F17.210 Nicotine dependence, cigarettes, uncomplicated
CPT/HCPCS: 36415; 74177; 80053; 81001; 83605; 83690; 83735; 84100; 85025; 96361; 96365; 96367; 96372; 96375; 96376; 99285; G0378; J1650; J2270; J2405; J3411; J3475; J3480; J7030; Q9967

== ENCOUNTER 2021-12-09 08:03 | Day surgery (SDC) | payer MEDICAID, SELFPAY ==
[2021-12-07 13:40] VITALS: BMI 29.3
[2021-12-09 08:25] VITALS: BP 113/63; PULSE 73; RESP 18; TEMP 36.3; O2SAT 99
--- NOTE | 2021-12-09 08:36 | P.HP_ITS ---
Same Day Surgery H&P Indication for Procedure/HPI DATE OF PROCEDURE: December 09, 2021 CHIEF COMPLAINT/INDICATIONFOR SURGICAL PROCEDURE: Abdominal pain PREOP DIAGNOSIS: Nausea and vomiting PLANNED PROCEDURE: Operation Date: 12/09/21 09:30 Proposed Procedures p EGD 72030,K29.20(Not Applicable) - Berhane Boyle MD This is a pleasant 50 years old female patient was seen and evaluated by Dr. Sorto my partner for epigastric abdominal pain back in July 2021. And at that time patient presented with history of alcoholic gastritis and has been on PPI therapy. Scribes the pain being sharp and constant and mostly in the epigastric area. Pushing on her tummy makes the pain worse. Nothing seems to make it better. Patient denies history of hematemesis or hematochezia. She did have an EGD and colonoscopy less than a year ago but I do not see reports on our system with that regard. Patient had recently an ultrasound of the gallbladder and showed severe fatty liver and a CT scan of the abdomen and pelvis that did show interval improvement of hepatic steatosis. Interval resolution of enterocolitis. With concern of distal CBD obstruction. And it does not seem that the patient had further work- up. Her total bilirubin is 1.0, AST 65, ALT 47 and alk phos 177. Patient denies history of jaundice. Ultrasound did show common bile duct measuring 6 mm. ROS All systems have been reviewed negative except as for the above or per problem list. Medications/Allergies* Home Medications Medication Instructions Recorded Confirmed Type omeprazole 40 mg capsule,delayed 40 mg PO BID 10/18/21 12/07/21 History release Allergies/Adverse Reactions Allergy/AdvReac Type Severity Reaction Status Date / Time codeine Allergy ALGY-Hives Verified 12/09/21 08:45 ketorolac [From Toradol] Allergy ALGY-Rash Verified 12/09/21 08:45 naproxen [From Naprosyn] Allergy ADR-Vomitin Verified 12/09/21 08:45 g prochlorperazine Allergy ALGY-Swell Verified 12/09/21 08:45 [From Compazine] Lip/Tongue/Throat Pertinent History/Comorbid Conditions* Medical History (Updated 11/28/21 @ 00:01 by ) Abdominal pain Acute dehydration Alcohol withdrawal Alcoholic ketoacidosis Alcoholism Anemia Anxiety Carpal tunnel syndrome Chronic back pain Chronic pancreatitis Cirrhosis Enteritis GERD (gastroesophageal reflux disease) H. pylori infection Hepatitis A Hypokalemia Intractable nausea and vomiting Intractable nausea and vomiting Sciatica Tobacco dependency Surgical History (Updated 02/22/19 @ 18:59 by Estrella Lyons MD) H/O rotator cuff surgery H/O: hysterectomy History of appendectomy History of cholecystectomy Family History (Updated 06/16/19 @ 22:37 by Kathie Pulido MD) Denies family history of Diabetes CAD (coronary artery disease) Dementia Social History Smoking and tobacco status: current every day smoker Alcohol intake: current Desire information about alcohol rehabilitation?: No Counseling given: Yes Last alcohol use date: 02/15/19 Pertinent Exam Findings alert, oriented x 3, clear to auscultation bilaterally, regular rate & rhythm and procedure specific exam findings (Abdominal exam nontender nondistended soft) Recommendations Surgery/Procedure today (EGD with possible biopsy) Other Plans: Plan of care; After thorough history and physical examination and reviewing the chart, plan to perform a diagnostic esophagogastroduodenoscopy with possible biopsy in the GI lab. I discussed with the patient in detail the risk,benefits,alternatives and indications.The risk of aspiration, bleeding, soft tissue injury, perforation of the stomach/esophagus and other potential concomitant complications were explained to the patient in details,aslo the potential need for Thoracic and or Abdominal surgery to repair any complications.The patient understood this well and did agree to proceed. Rationale was carefully and clearly discussed with the patient.Appropriate informed consent have been reviewed and signed All questions have been answered and all concerns have been addressed to patient's satisfaction. Coding Level of Care Code Acute Business Management Manager for Shila Mcallister
--- NOTE | 2021-12-09 08:38 | ANES.PREANE2 ---
Pre-Anesthetic Assessment Height/Weight: Height 1.63 m Weight 77.564 kg Temp Pulse Resp BP Pulse Ox O2 Del Method 97.4 F L 73 18 113/63 99 12/09/21 08:25 12/09/21 08:25 12/09/21 08:25 12/09/21 08:25 12/09/21 08:25 12/09/21 08:25 Operation Date: 12/09/21 09:30 Proposed Procedures p EGD 19975,K29.20(Not Applicable) - Berhane Boyle MD Familial anesthetic complications: None Was Beta Joaquina taken within 24 hours: N/A Was Clonidine taken within 24 hours: N/A Last intake: Intake Last Liquid Date 12/08/21 Last Liquid Time 20:00 Last Solid Date 12/07/21 Last Solid Time 15:00 Social Alcohol (3-4 glasses of vodka daily) and Tobacco 1.5 pack(s) per day Exam alert, oriented x 3, clear to auscultation bilaterally and regular rate & rhythm Airway Submandibular: within normal limits Cervical ROM: within normal limits Mallampati: Class II Dentition: false History/ROS No significant history except as noted and No significant complaints Pulmonary Asthma (As a child), Chronic Obstructive Pulmonary Disease and Sleep Apnea (No CPAP) CV/HEM Deep Vein Thrombosis (Few years ago. Does not take medication for this. She was told to take a baby aspirin daily but does not do so), Murmur and Palpitations Urinary Tract Infection (Frequent UTIs) As a teenager was told that she needed surgery on her right kidney but has not. Has frequent UTIs due to kidney abnormality. Patient state she has an extra tube going to the right kidney Hepatic Hepatitis (Hep A in past. Received 3 shots for it) GI Gastroesophageal Reflux Disease (Well controlled with med) and Peptic Ulcer Disease Metabolic Thyroid Disease (Does not take meds) Musc/skel Lower Back Pain and Osteoarthritis/DJD Left sciatic nerve issues Neuropsych Anxiety, Depression, Neuropathy (Patient states all of her toes are numb all the time) and Seizure (Had a seizure years ago due to tramadol) Anesthetic Plan ASA status: 3 Anesthesia: Anesthesia Evaluation, General and MAC Risk of > 500 ml blood loss (7ml/kg in children): No Medications/Allergies Home Medications Medication Instructions Recorded Confirmed Last Taken Type omeprazole 40 mg capsule,delayed 40 mg PO BID 10/18/21 12/07/21 2 Days Ago History release ~12/07/21 Allergies Allergy/AdvReac Type Severity Reaction Status Date / Time codeine Allergy ALGY-Hives Verified 12/09/21 08:45 ketorolac [From Toradol] Allergy ALGY-Rash Verified 12/09/21 08:45 naproxen [From Naprosyn] Allergy ADR-Vomitin Verified 12/09/21 08:45 g prochlorperazine Allergy ALGY-Swell Verified 12/09/21 08:45 [From Compazine] Lip/Tongue/Throat [facility] Anesthesia Medical History Alcohol withdrawal Alcoholism Anemia Carpal tunnel syndrome Chronic back pain Chronic pancreatitis Cirrhosis Enteritis GERD (gastroesophageal reflux disease) H. pylori infection Hepatitis A Hypokalemia Intractable nausea and vomiting Sciatica Tobacco dependency Surgical History H/O rotator cuff surgery H/O: hysterectomy History of appendectomy History of cholecystectomy Family History Denies family history of Diabetes CAD (coronary artery disease) Dementia Social History Smoking and tobacco status: current every day smoker Alcohol intake: current Desire information about alcohol rehabilitation?: No Counseling given: Yes Last alcohol use date: 02/15/19 Data Anesthesia Cardiac Studies: No Data to Display
[2021-12-09] MEDS: sodium chloride 0.9% 1,000 ML 30 ML IV (09:15)
[2021-12-09 09:24] VITALS: BP 125/88; PULSE 99; RESP 18; TEMP 36.8; O2SAT 96
[2021-12-09 09:29] VITALS: BP 111/70; PULSE 94; RESP 18; O2SAT 95
--- NOTE | 2021-12-09 16:15 | ANE.PACU2 ---
Inpatient post-anesthesia follow up: Airway intact: Yes Vital signs: Temperature 98.3 F Pulse Rate 94 Respiratory Rate 18 Blood Pressure 111/70 Pulse Oximetry 95 Oxygen Delivery Me thod Room Air Oxygen Flow Rate Fraction of Inspir ed Oxygen Hydration adequate: Yes Nausea and vomiting: No Pain level: 1 Mental status: Baseline
== END 2021-12-09 10:01 | disposition home or self-care (01) ==
PROVIDERS: PCP Family Medicine; Visit Provider Surgery
PROC: 0DJ08ZZ Inspection of Upper Intestinal Tract, Via Natural or Artificial Opening Endoscopic (ICD-10-PCS; CPT 43235; principal; 2021-12-09 09:30)
DX: K29.20 Alcoholic gastritis without bleeding (principal); R10.9 Unspecified abdominal pain; K29.50 Unspecified chronic gastritis without bleeding; B96.81 Helicobacter pylori [H. pylori] as the cause of diseases classified elsewhere; J44.9 Chronic obstructive pulmonary disease, unspecified; G47.30 Sleep apnea, unspecified; Z86.718 Personal history of other venous thrombosis and embolism; K21.9 Gastro-esophageal reflux disease without esophagitis; Z87.11 Personal history of peptic ulcer disease; F17.210 Nicotine dependence, cigarettes, uncomplicated
CPT/HCPCS: 43239; 88305; 88342; J2704; J7030

== ENCOUNTER 2022-01-14 08:49 | Inpatient (IN) | payer MEDICAID, SELFPAY ==
[2022-01-14] VITALS (13 sets, daily range): BP systolic 99–143; BP diastolic 67–87; PULSE 96–121; RESP 16–22; TEMP 36.8–37.1; O2SAT 93–100; BMI 28.5
--- NOTE | 2022-01-14 09:00 | ED_ITS ---
Documented by User: Cristina Jha 01/14/22 12:01 HPI - Chest Pain General: Chief Complaint: Chest Pain Stated Complaint: cp, back pain Time Seen by Provider: 01/14/22 09:00 History of Present Illness: CP, back pain Associated symptoms: Reports abdominal pain, nausea and vomiting; Deny dyspnea or fever(s) Review of Systems Const: Denies: fever(s) Eyes: Denies: change in vision ENMT: Denies: throat pain Card: Reports: chest pain Resp: Denies: dyspnea GI: Reports: abdominal pain, nausea and vomiting : Denies: flank pain Musc: Reports: back pain; Denies: neck pain Skin/Breast: Denies: rash Neuro: Denies: headache(s) Endo: Denies: polyuria Eric/Lymph: Denies: easy bruising All/Imm: Denies: urticaria PFSH ED PFSH: Medical History Abdominal pain Acute dehydration Alcohol withdrawal Alcoholic ketoacidosis Alcoholism Anemia Anxiety Carpal tunnel syndrome Chronic back pain Chronic pancreatitis Cirrhosis Enteritis GERD (gastroesophageal reflux disease) H. pylori infection Hepatitis A Hypokalemia Intractable nausea and vomiting Intractable nausea and vomiting Sciatica Tobacco dependency Surgical History H/O rotator cuff surgery H/O: hysterectomy History of appendectomy History of cholecystectomy Family History Denies family history of Diabetes CAD (coronary artery disease) Dementia Social History Smoking and tobacco status: current every day smoker Alcohol intake: current Desire information about alcohol rehabilitation?: No Counseling given: Yes Last alcohol use date: 02/15/19 Current occupation: On disability Physical Exam 2 Const: COMMON NORMALS: alert HENMT: COMMON NORMALS: atraumatic HEAD & SCALP: atraumatic MOUTH: moist mucous membranes abnormal Eye: COMMON NORMALS: EOMs intact bilaterally and conjunctivae normal CONJUNCTIVA: Yes conjunctivae normal Neck/C-Spine: COMMON NORMALS: full ROM and supple Resp: COMMON NORMALS: normal respiratory effort and clear to auscultation bilaterally AUSCULTATION: clear to auscultation bilaterally Cardio: COMMON NORMALS: regular rate RATE: regular rate GI: COMMON NORMALS: Soft to palpation PALPATION: Yes Soft to palpation OTHER: Neg Pena/Neg McBurney's point tenderness, no suprabupic tenderness to palpation. Extremity: COMMON NORMALS: full ROM Neuro: SENSORIUM/ORIENTATION: Yes alert MOTOR EXAM: No Abnormal motor strength present and Other motor observations present (no focal motor deficits) Psych: COMMON NORMALS: speech normal SPEECH: Yes normal speech MOOD & AFFECT: Yes euthymic mood Course ED course: Pt presents with CP and Back pain x 1 week. States severe NV and denies fever. Pt says mild radiating CP to the left arm on drive here but most significantly in her lower back and through to abdomen. She has not been able to eat or drink much in several days. Will rule out infection, chest pain protocol, and also rule out pancreatitis due to hx of alcholism. Vital Signs: Vital signs: Vital Signs Temperature 98.6 F 01/20/22 16:52 Pulse Rate 86 01/20/22 16:52 Respiratory Rate 15 01/20/22 16:52 Blood Pressure 90/61 01/20/22 16:52 Pulse Oximetry 95 01/20/22 16:52 Oxygen Delivery Me thod 01/20/22 15:57 MDM - Chest Pain Medical Decision Making Pt labs show low potassium, low magnesium, elevated Anion Gap, and troponin elevation. Awaiting UA still. WBC are low as well. Dr. Talamantes was given report and I will transfer care to him at this time. Lab Data 01/14/22 09:40 01/14/22 09:40 Radiology Impressions Chest X-Ray 01/14/22 09:00 IMPRESSION: No acute cardiopulmonary abnormality. Abdomen/Pelvis CT 01/14/22 12:13 IMPRESSION: 1. Interval worsening of hepatomegaly/hepatic steatosis. 2. Stable extrahepatic biliary ductal dilatation. Gallbladder Ultrasound 01/14/22 15:23 IMPRESSION: 1. Prior cholecystectomy, no visible biliary tree dilation. 2. Hepatomegaly, with suspected fatty infiltration of the liver. 3. Other findings discussed above. Lumbar Spine X-Ray 01/15/22 12:12 IMPRESSION: 1. No acute bony abnormality. 2. Dextroscoliosis [place] angle 18 degrees. 3. Status post cholecystectomy Laboratory Results WBC 3.7 10^3/uL (4.0-10.0) L 01/15/22 05:04 RBC 2.05 10^6/uL (4.1-5.3) L 01/15/22 05:04 Hgb 7.8 g/dL (11.5-15.3) L 01/15/22 05:04 Hct 22.4 % (37.0-47.0) L 01/15/22 05:04 MCV 109.3 fl (81-99) H 01/15/22 05:04 MCH 38.0 pg (28.0-34.0) H 01/15/22 05:04 MCHC 34.8 g/dL (30.0-36.0) 01/15/22 05:04 RDW 26.6 % (12.1-15.1) H 01/15/22 05:04 Plt Count 77 10^3/cmm (130-400) L 01/15/22 05:04 MPV 11.2 fL (7.4-10.4) H 01/15/22 05:04 Neut % (Auto) 63.3 % 01/15/22 05:04 Lymph % (Auto) 22.0 % 01/15/22 05:04 Holt % (Auto) 11.8 % 01/15/22 05:04 Eos % (Auto) 2.1 % 01/15/22 05:04 Baso % (Auto) 0.5 % 01/15/22 05:04 Neut # (Auto) 2.36 10^3/uL (1.8-7.7) 01/15/22 05:04 Lymph # (Auto) 0.8 10^3/uL (0.8-4.8) 01/15/22 05:04 Holt # (Auto) 0.4 10^3/uL (0.2-0.9) 01/15/22 05:04 Eos # (Auto) 0.1 10^3/uL (0.0-0.8) 01/15/22 05:04 Baso # (Auto) 0.0 10^3/uL (0.0-0.1) 01/15/22 05:04 Nucleated RBC % (auto) 0.5 % 01/15/22 05:04 Nucleated RBCs # 0.0 /100WBC 01/15/22 05:04 PT 15.40 SECONDS (12.1-14.9) H 01/14/22 09:40 INR 1.19 (0.8-1.2) 01/14/22 09:40 APTT 32.6 SECONDS (23.9-36.7) 01/14/22 09:40 Sodium 126 mmol/L (136-145) L 01/15/22 05:04 Potassium 2.1 mmol/L (3.5-5.1) L* 01/15/22 05:04 Chloride 90 mmol/L (98-107) L 01/15/22 05:04 Carbon Dioxide 24 mmol/L (22-29) 01/15/22 05:04 Anion Gap 14.1 (5-19) 01/15/22 05:04 BUN 9 mg/dL (6-20) 01/15/22 05:04 Creatinine 0.6 mg/dL (0.5-0.9) 01/15/22 05:04 GFR Calculation 104.6 mL/min (90-130) 01/15/22 05:04 Glucose 104 mg/dL (65-115) 01/15/22 05:04 Calculated Osmolality 261 mOsm/kg (285-295) L 01/15/22 05:04 Calcium 8.6 mg/dL (8.5-10.5) 01/15/22 05:04 Magnesium 1.8 mg/dL (1.7-2.3) 01/15/22 05:04 Total Bilirubin 6.4 mg/dL (0.15-1.2) H 01/15/22 05:04 Direct Bilirubin 2.30 mg/dL (0.00-0.30) H 01/14/22 09:40 AST 236 U/L (0-32) H 01/15/22 05:04 ALT 66 U/L (0-33) H 01/15/22 05:04 Alkaline Phosphatase 204 U/L (35-105) H 01/15/22 05:04 CK-MB (CK-2) 1.0 ng/mL (0-5.34) 01/14/22 09:40 Troponin T Baseline 11 ng/L (0-10) H 01/14/22 09:40 Troponin T 120 Minute 9.83 ng/L (0-10) 12/03/22 11:40 Delta Troponin T -1.17 ABS# (0-10) L 01/14/22 11:40 Troponin T Hi Sens 6Hr 9.78 ng/L (0-10) 01/14/22 15:52 Troponin T Hi Sens 6Hr Delta -1.22 ng/L (0-12) L 01/14/22 15:52 Total Protein 6.9 g/dL (6.6-8.7) 01/15/22 05:04 Albumin 3.1 g/dL (3.5-5.2) L 01/15/22 05:04 Globulin 3.8 g/dL (1.3-4.6) 01/15/22 05:04 Amylase 24 U/L (28-100) L 01/14/22 09:40 Lipase 31 U/L (13-60) 01/14/22 09:40 Urine Color Gypsum (Yellow) 01/14/22 14:30 Urine Appearance Clear (CLEAR) 01/14/22 14:30 Urine pH 6.5 (5-7) 01/14/22 14:30 Ur Specific [place] 1.005 (1.005-1.030) 01/14/22 14:30 Urine Protein 1+ (Negative) H 01/14/22 14:30 Urine Glucose (UA) Norm (Normal) 01/14/22 14:30 Urine Ketones 1+ (Negative) H 01/14/22 14:30 Urine Blood 2+ (Negative) H 01/14/22 14:30 Urine Nitrate Positive (Negative) H 01/14/22 14:30 Urine Bilirubin 2+ (Negative) H 01/14/22 14:30 Urine Urobilinogen 4+ mg/dL (Negative) H 01/14/22 14:30 Ur Leukocyte Esterase Trace (Negative) H 01/14/22 14:30 Urine RBC 0-4 /hpf (0-2) H 01/14/22 14:30 Urine WBC 0-4 /hpf (0-5) H 01/14/22 14:30 Ur Squamous Epith Cells 5-10 /hpf (0-5) H 01/14/22 14:30 Amorphous Sediment Not Reportable 01/14/22 14:30 Urine Bacteria 1+ /hpf (NONE) H 01/14/22 14:30 Coronavirus 229E (PCR) Not detected (NOT DETECT) 01/14/22 16:55 Hepatitis A IgM Ab Non-reactive (Nonreactive) 01/15/22 05:04 Hep Bs Antigen Non-reactive (Nonreactive) 01/15/22 05:04 Hep B Core IgM Ab Non-reactive (Nonreactive) 01/15/22 05:04 Hepatitis C Antibody Non-reactive (Nonreactive) 01/15/22 05:04 Influenza Type A Ag Negative (Negative) 01/14/22 16:55 Influenza Type B Ag Negative (Negative) 01/14/22 16:55 SARS-CoV-2 (PCR) Not detected (NOT DETECT) 01/14/22 16:55 Discharge Plan Discharge Patient Disposition: Placed in Observation Admit Provider: Rolando Villa Clinical Impression: Alcoholic hepatitis, Abdominal pain, Pancytopenia, Macrocytic anemia, Hypokalemia, Hypomagnesemia, Dehydration, Elevated bilirubin Discharge Diet: Advance as tolerated and Full LIquid Discharge Activity: Increase activity as tolerated Coding Level of Care Code ED Professional Services Specialist for Chg Fwd Exam Comprehensive Documented by User: Estuardo Talamantes MD 01/25/22 12:02 HPI - Chest Pain 2 General: Chief Complaint: Chest Pain Stated Complaint: cp, back pain Time Seen by Provider: 01/14/22 09:00 [facility] ED PFSH: Medical History Abdominal pain Acute dehydration Alcohol withdrawal Alcoholic ketoacidosis Alcoholism Anemia Anxiety Carpal tunnel syndrome Chronic back pain Chronic pancreatitis Cirrhosis Enteritis GERD (gastroesophageal reflux disease) H. pylori infection Hepatitis A Hypokalemia Intractable nausea and vomiting Intractable nausea and vomiting Sciatica Tobacco dependency Surgical History H/O rotator cuff surgery H/O: hysterectomy History of appendectomy History of cholecystectomy Family History Denies family history of Diabetes CAD (coronary artery disease) Dementia Social History Smoking and tobacco status: current every day smoker Alcohol intake: current Desire information about alcohol rehabilitation?: No Counseling given: Yes Last alcohol use date: 02/15/19 Current occupation: On disability Course Vital Signs: Vital signs: Vital Signs Temperature 98.6 F 01/20/22 16:52 Pulse Rate 86 01/20/22 16:52 Respiratory Rate 15 01/20/22 16:52 Blood Pressure 90/61 01/20/22 16:52 Pulse Oximetry 95 01/20/22 16:52 Oxygen Delivery Me thod 01/20/22 15:57 MDM - Chest Pain Medical Decision Making Pt labs show low potassium, low magnesium, elevated Anion Gap, and troponin elevation. Awaiting UA still. WBC are low as well. Dr. Talamantes was given report and I will transfer care to him at this time. I discussed this case with Cristina Jha. I personally saw and evaluated the patient. I reperformed angel portions of E/M. 51-year-old lady with history of alcohol abuse presenting with nausea, vomiting, abdominal pain. Gradually approximately 1 week however not worsening. Intensity is moderate to severe. Course has worsened. Unable to tolerate oral intake. Does associate generalized illness but no other focal sources of infection. Has had similar episodes in the past. Reperformed 10 point review of systems Physical exam reviewed and agree as above with exception of abdominal tenderness on my exam however no evidence of peritonitis or acute surgical abdomen. Patient continues to have significant discomfort despite treatment in the emergency department and is unable to tolerate p.o. intake. Most likely etiology of patient's symptoms is alcoholic hepatitis with associated GI symptoms. The results of ED evaluation were discussed with the patient including plan for admission due to requirement for level of care not available if discharged to prevent significant worsening/deterioration. Patient agreeable with plan. Discussed with hospitalist service who was agreeable to admit patient. Estuardo Talamantes MD Emergency Medicine Lab Data 01/14/22 09:40 01/14/22 09:40 Radiology Impressions Chest X-Ray 01/14/22 09:00 IMPRESSION: No acute cardiopulmonary abnormality. Abdomen/Pelvis CT 01/14/22 12:13 IMPRESSION: 1. Interval worsening of hepatomegaly/hepatic steatosis. 2. Stable extrahepatic biliary ductal dilatation. Gallbladder Ultrasound 01/14/22 15:23 IMPRESSION: 1. Prior cholecystectomy, no visible biliary tree dilation. 2. Hepatomegaly, with suspected fatty infiltration of the liver. 3. Other findings discussed above. Lumbar Spine X-Ray 01/15/22 12:12 IMPRESSION: 1. No acute bony abnormality. 2. Dextroscoliosis [place] angle 18 degrees. 3. Status post cholecystectomy Laboratory Results WBC 3.7 10^3/uL (4.0-10.0) L 01/15/22 05:04 RBC 2.05 10^6/uL (4.1-5.3) L 01/15/22 05:04 Hgb 7.8 g/dL (11.5-15.3) L 01/15/22 05:04 Hct 22.4 % (37.0-47.0) L 01/15/22 05:04 MCV 109.3 fl (81-99) H 01/15/22 05:04 MCH 38.0 pg (28.0-34.0) H 01/15/22 05:04 MCHC 34.8 g/dL (30.0-36.0) 01/15/22 05:04 RDW 26.6 % (12.1-15.1) H 01/15/22 05:04 Plt Count 77 10^3/cmm (130-400) L 01/15/22 05:04 MPV 11.2 fL (7.4-10.4) H 01/15/22 05:04 Neut % (Auto) 63.3 % 01/15/22 05:04 Lymph % (Auto) 22.0 % 01/15/22 05:04 Holt % (Auto) 11.8 % 01/15/22 05:04 Eos % (Auto) 2.1 % 01/15/22 05:04 Baso % (Auto) 0.5 % 01/15/22 05:04 Neut # (Auto) 2.36 10^3/uL (1.8-7.7) 01/15/22 05:04 Lymph # (Auto) 0.8 10^3/uL (0.8-4.8) 01/15/22 05:04 Holt # (Auto) 0.4 10^3/uL (0.2-0.9) 01/15/22 05:04 Eos # (Auto) 0.1 10^3/uL (0.0-0.8) 01/15/22 05:04 Baso # (Auto) 0.0 10^3/uL (0.0-0.1) 01/15/22 05:04 Nucleated RBC % (auto) 0.5 % 01/15/22 05:04 Nucleated RBCs # 0.0 /100WBC 01/15/22 05:04 PT 15.40 SECONDS (12.1-14.9) H 01/14/22 09:40 INR 1.19 (0.8-1.2) 01/14/22 09:40 APTT 32.6 SECONDS (23.9-36.7) 01/14/22 09:40 Sodium 126 mmol/L (136-145) L 01/15/22 05:04 Potassium 2.1 mmol/L (3.5-5.1) L* 01/15/22 05:04 Chloride 90 mmol/L (98-107) L 01/15/22 05:04 Carbon Dioxide 24 mmol/L (22-29) 01/15/22 05:04 Anion Gap 14.1 (5-19) 01/15/22 05:04 BUN 9 mg/dL (6-20) 01/15/22 05:04 Creatinine 0.6 mg/dL (0.5-0.9) 01/15/22 05:04 GFR Calculation 104.6 mL/min (90-130) 01/15/22 05:04 Glucose 104 mg/dL (65-115) 01/15/22 05:04 Calculated Osmolality 261 mOsm/kg (285-295) L 01/15/22 05:04 Calcium 8.6 mg/dL (8.5-10.5) 01/15/22 05:04 Magnesium 1.8 mg/dL (1.7-2.3) 01/15/22 05:04 Total Bilirubin 6.4 mg/dL (0.15-1.2) H 01/15/22 05:04 Direct Bilirubin 2.30 mg/dL (0.00-0.30) H 01/14/22 09:40 AST 236 U/L (0-32) H 01/15/22 05:04 ALT 66 U/L (0-33) H 01/15/22 05:04 Alkaline Phosphatase 204 U/L (35-105) H 01/15/22 05:04 CK-MB (CK-2) 1.0 ng/mL (0-5.34) 01/14/22 09:40 Troponin T Baseline 11 ng/L (0-10) H 01/14/22 09:40 Troponin T 120 Minute 9.83 ng/L (0-10) 01/14/22 11:40 Delta Troponin T -1.17 ABS# (0-10) L 01/14/22 11:40 Troponin T Hi Sens 6Hr 9.78 ng/L (0-10) 01/14/22 15:52 Troponin T Hi Sens 6Hr Delta -1.22 ng/L (0-12) L 01/14/22 15:52 Total Protein 6.9 g/dL (6.6-8.7) 01/15/22 05:04 Albumin 3.1 g/dL (3.5-5.2) L 01/15/22 05:04 Globulin 3.8 g/dL (1.3-4.6) 01/15/22 05:04 Amylase 24 U/L (28-100) L 01/14/22 09:40 Lipase 31 U/L (13-60) 01/14/22 09:40 Urine Color Gypsum (Yellow) 01/14/22 14:30 Urine Appearance Clear (CLEAR) 01/14/22 14:30 Urine pH 6.5 (5-7) 01/14/22 14:30 Ur Specific [place] 1.005 (1.005-1.030) 01/14/22 14:30 Urine Protein 1+ (Negative) H 01/14/22 14:30 Urine Glucose (UA) Norm (Normal) 01/14/22 14:30 Urine Ketones 1+ (Negative) H 01/14/22 14:30 Urine Blood 2+ (Negative) H 01/14/22 14:30 Urine Nitrate Positive (Negative) H 01/14/22 14:30 Urine Bilirubin 2+ (Negative) H 01/14/22 14:30 Urine Urobilinogen 4+ mg/dL (Negative) H 01/14/22 14:30 Ur Leukocyte Esterase Trace (Negative) H 01/14/22 14:30 Urine RBC 0-4 /hpf (0-2) H 01/14/22 14:30 Urine WBC 0-4 /hpf (0-5) H 01/14/22 14:30 Ur Squamous Epith Cells 5-10 /hpf (0-5) H 01/14/22 14:30 Amorphous Sediment Not Reportable 01/14/22 14:30 Urine Bacteria 1+ /hpf (NONE) H 01/14/22 14:30 Coronavirus 229E (PCR) Not detected (NOT DETECT) 01/14/22 16:55 Hepatitis A IgM Ab Non-reactive (Nonreactive) 01/15/22 05:04 Hep Bs Antigen Non-reactive (Nonreactive) 01/15/22 05:04 Hep B Core IgM Ab Non-reactive (Nonreactive) 01/15/22 05:04 Hepatitis C Antibody Non-reactive (Nonreactive) 01/15/22 05:04 Influenza Type A Ag Negative (Negative) 01/14/22 16:55 Influenza Type B Ag Negative (Negative) 01/14/22 16:55 SARS-CoV-2 (PCR) Not detected (NOT DETECT) 01/14/22 16:55 Discharge Plan Discharge Patient Disposition: Placed in Observation Admit Provider: Rolando Villa Clinical Impression: Alcoholic hepatitis, Abdominal pain, Pancytopenia, Macrocytic anemia, Hypokalemia, Hypomagnesemia, Dehydration, Elevated bilirubin Discharge Diet: Advance as tolerated and Full LIquid Discharge Activity: Increase activity as tolerated Coding Level of Care Code ED Professional Services Specialist for Chg Fwd Exam Comprehensive
--- NOTE | 2022-01-14 09:00 | XRR_ITS ---
PROCEDURE INFORMATION: Exam: XR Chest Exam date and time: 01/14/2022 9:19 AM Age: 51 years old Clinical indication: Pain; Chest pressure; Additional info: Cp TECHNIQUE: Imaging protocol: Radiologic exam of the chest. Views: 1 view. COMPARISON: CR XR chest 1V portable [id number] 08/22/2021 11:23 AM FINDINGS: Lungs: No focal airspace disease. Pleural spaces: Unremarkable. No pleural effusion. No pneumothorax. Heart/Mediastinum: Cardiomediastinal silhouette is within normal limits. Bones/joints: ACDF hardware in the cervical spine. XR/XR chest 1V portable [id number] IMPRESSION: No acute cardiopulmonary abnormality.
--- NOTE | 2022-01-14 09:05 | ECG_ITS ---
[facility] Test Date: 2022-01-14 Pat Name: Melissa Portillo Department: Room: Gender: Female Security Incident Response Engineer: : 1970 Requested By: Cristina Jha Order Number: [id number] Hill MD: Jensen Kidd M.D. Measurements Intervals [place] Rate: 113 P: 66 TX: 156 QRS: 73 QRSD: 83 T: 49 QT: 343 QTc: 472 Interpretive Statements SINUS TACHYCARDIA POSSIBLE LEFT ATRIAL ENLARGEMENT [-0.1mV P-WAVE IN V1/V2] MODERATE ST DEPRESSION [0.05+ mV ST DEPRESSION] Compared to ECG 10/18/2021 07:15:49 ST (T wave) deviation now present Electronically Signed On 01-15-2022 19:47:11 WATER PUMP SERVICER by Jensen Kidd M.D. [email or web address]
[2022-01-14] MEDS: morphine 4 mg/mL SDV 1 mL IVP ×2 (09:48→11:28)
[2022-01-14] MEDS: ondansetron 2 mg/ML SDV 2 mL 4 MG IVP ×2 (09:48→17:58)
[2022-01-14 09:55] LABS: Basophils % 0.6 %; Eosinophils % 0.8 %; Hematocrit 28.8 % (37.0-47.0); Hemoglobin 10.1 g/dL (11.5-15.3); Lymphocytes # 0.7 10^3/uL (0.8-4.8); Lymphocytes % 19.4 %; Mean Corpuscular HGB Conc 35.1 g/dL (30.0-36.0); Mean Corpuscular Hemoglobin 37.4 pg (28.0-34.0); Mean Corpuscular Volume 106.7 fl (81-99); Mean Platelet Volume 11.7 fL (7.4-10.4); Monocytes # 0.3 10^3/uL (0.2-0.9); Monocytes % 8.6 %; Neutrophils # 2.55 10^3/uL (1.8-7.7); Neutrophils % 70.6 %; Nucleated Red Blood Cells % 0 %; Platelet Count 109 10^3/cmm (130-400); Red Cell Distribution Width 26.3 % (12.1-15.1); White Blood Count 3.6 10^3/uL (4.0-10.0)
[2022-01-14 10:12] LABS: Troponin(5th) Baseline 11 ng/L (0-10)
[2022-01-14 10:14] LABS: Alanine Aminotransferase 92 U/L (0-33); Albumin Level 3.8 g/dL (3.5-5.2); Alkaline Phosphatase 254 U/L (35-105); Amylase 24 U/L (28-100); Blood Urea Nitrogen 7 mg/dL (6-20); Calcium 9.3 mg/dL (8.5-10.5); Carbon Dioxide 19 mmol/L (22-29); Chloride 95 mmol/L (98-107); Globulin 4.4 g/dL (1.3-4.6); Glomerular Filtration Rate 129.1 mL/min (90-130); Glucose 93 mg/dL (65-115); Lipase 31 U/L (13-60); Osmolality Calculated 284 mOsm/kg (285-295); Sodium 138 mmol/L (136-145); Total Bilirubin 4.2 mg/dL (0.15-1.2); Total Protein 8.2 g/dL (6.6-8.7)
[2022-01-14 10:18] LABS: Anion Gap 26.6 (5-19); Aspartate Amino Transferase 362 U/L (0-32)
[2022-01-14 10:20] LABS: Potassium 2.6 mmol/L (3.5-5.1)
--- NOTE | 2022-01-14 11:01 | ECG_ITS ---
[facility] Test Date: 2022-01-14 Pat Name: Melissa Portillo Department: Room: Gender: Female Fittings Finisher: : 1970 Requested By: Cristina Jha Order Number: [id number] Liz MD: Jensen Kidd M.D. Measurements Intervals [place] Rate: 107 P: 57 OR: 153 QRS: 65 QRSD: 85 T: 43 QT: 350 QTc: 467 Interpretive Statements SINUS TACHYCARDIA POSSIBLE LEFT ATRIAL ENLARGEMENT [-0.1mV P-WAVE IN V1/V2] MODERATE ST DEPRESSION [0.05+ mV ST DEPRESSION] Compared to ECG 01/14/2022 09:05:49 No significant changes Electronically Signed On 01-15-2022 19:58:56 AUDITOR TAX by Jensen Kidd M.D. [id number]
[2022-01-14 12:02] LABS: INR 1.19 (0.8-1.2); Partial Thromboplastin Time 32.6 SECONDS (23.9-36.7)
[2022-01-14 12:02] LABS: Troponin 5 2HR 9.83 ng/L (0-10)
--- NOTE | 2022-01-14 12:13 | CTR_ITS ---
PROCEDURE INFORMATION: Exam: CT Abdomen And Pelvis With Contrast Exam date and time: 01/14/2022 12:43 PM Age: 51 years old Clinical indication: Abdominal pain; Localized; Right upper quadrant (ruq); Additional info: Ruq/epigastric and back pain TECHNIQUE: Imaging protocol: Computed tomography of the abdomen and pelvis with contrast. Radiation optimization: All CT scans at this facility use at least one of these dose optimization techniques: automated exposure control; mA and/or kV adjustment per patient size (includes targeted exams where dose is matched to clinical indication); or iterative reconstruction. Contrast material: OMNI 350; Contrast volume: 100 ml; Contrast route: INTRAVENOUS (IV); COMPARISON: CT abdomen pelvis w con* [id number] 11/26/2021 4:26 PM RADIATION DOSE METRICS: Total DLP (mGy-cm): 713.76 FINDINGS: Lungs: Prior pulmonary granulomatous disease. Liver: Enlarged fatty liver. The liver has increased in size, and the degree of fatty change has increased, when compared to the prior comparison study Gallbladder and bile ducts: Prior cholecystectomy. Stable dilated extrahepatic bile duct. Pancreas: No pancreatic enlargement, peripancreatic inflammation, or ductal dilation. Spleen: The spleen is homogeneous and is not enlarged. Adrenal glands: No adrenal mass. Kidneys and ureters: No nephrolithiasis or hydronephrosis. Stomach and bowel: No bowel obstruction or diverticulitis. Appendix: Prior appendectomy. Intraperitoneal space: No ascites or pneumoperitoneum. Vasculature: No abdominal aortic aneurysm. The mesenteric arteries are patent. The mesenteric, portal, and hepatic veins are patent. Lymph nodes: No pathologically enlarged lymph nodes. Urinary bladder: The urinary bladder is nearly empty. Reproductive: Prior hysterectomy. Bones/joints: No acute osseous abnormality. Soft tissues: No acute soft tissue abnormality. CT/CT abdomen pelvis w con* [id number] IMPRESSION: 1. Interval worsening of hepatomegaly/hepatic steatosis. 2. Stable extrahepatic biliary ductal dilatation.
[2022-01-14 12:15] LABS: Troponin 5 2HR Delta -1.17 ABS# (0-10)
[2022-01-14] MEDS: lidocaine 1% 5 ML in potassium chloride premix 100 ML 25 ML IV (12:23)
[2022-01-14] MEDS: magnesium sulfate premix 4 GM/100 ML PREMIX IV (12:23)
[2022-01-14] MEDS: iohexol 350 mg/mL 500 mL Btl (per mL) IV (12:52)
[2022-01-14] MEDS: folic acid 1 MG, multivitamin inj 10 ML, thiamine 100 MG in sodium chloride 0.9% 1,000 ML 252.8 MG IV (13:56)
[2022-01-14] MEDS: fentaNYL 50 mcg/mL INJ 2mL IVP (13:57)
--- NOTE | 2022-01-14 14:34 | PM.HP ---
Providers/Chief Complaint Admitting Physician: Rolando Villa Primary Care Provider: Aditya Degroot DO Chief Complaint: cp, back pain History of Present Illness 51-year-old lady with history of alcohol use disorder, smoking, history of pancreatitis, liver cirrhosis, GERD, recently with upper endoscopy reports with finding of gastritis, has felt unwell over the last week, with poor oral intake, nausea, vomiting, abdominal pain, left upper, but also epigastric radiating to the back some pain right upper quadrant as well. Reports has had poor oral intake. Has cut down on alcohol, last 3-4 days down to 2 cups in a day of vodka mixed with soft drink. About 2 to 3 weeks ago she had fallen down and hit her left side/left lower chest on the edge of the bed. About 2 weeks ago she had a headache arising from the back of her neck upward. That had resolved spontaneously. Denies any fevers, has been feeling cold. Has also history of COPD, has been feeling short of breath, coughing. Denies any diarrhea, more constipation. Has been having some hypogastric burning and some burning with urination. Was recently diagnosed with UTI, and antibiotic was prescribed but she had not yet started it, her had just picked it up at the pharmacy. Review of Systems Const: Denies: fever(s), chills, body aches or malaise Eyes: Denies: change in vision, eye discomfort or eye redness ENMT: Denies: throat pain, oral sores or ear or mastoid pain Card: Denies: chest pain, edema, pre-syncope or dyspnea on exertion Resp: Reports: dyspnea, productive cough and other (Cough); Denies: change in phlegm color or hemoptysis GI: Reports: abdominal pain, nausea, vomiting and constipation; Denies: diarrhea, hematochezia or melena : Reports: flank pain; Denies: urinary frequency or hematuria Musc: Denies: back pain, joint swelling or joint redness Skin/Breast: Denies: rash or new lesions Neuro: Denies: headache(s), numbness in extremities, weakness in extremities, dizziness, confusion or seizure-like activity Endo: Denies: polyuria or polydipsia Eric/Lymph: Denies: easy bleeding or tender lymph nodes All/Imm: Denies: urticaria or tongue swelling Medications/Allergies Home Medications Medication Instructions Recorded Confirmed Last Taken Type omeprazole 40 mg capsule,delayed 40 mg PO BID 10/18/21 01/14/22 01/13/22 History release ciprofloxacin HCl 500 mg tablet 500 mg PO Q12H 01/14/22 01/14/22 Unknown History Allergies Allergy/AdvReac Type Severity Reaction Status Date / Time codeine Allergy ALGY-Hives Verified 12/09/21 08:45 ketorolac [From Toradol] Allergy ALGY-Rash Verified 12/09/21 08:45 naproxen [From Naprosyn] Allergy ADR-Vomitin Verified 12/09/21 08:45 g prochlorperazine Allergy ALGY-Swell Verified 12/09/21 08:45 [From Compazine] Lip/Tongue/Throat Penicillins AdvReac Intermediate ADR-Vomitin Unverified 01/14/22 14:36 g PFSH Acute PFSH: Medical History Abdominal pain Acute dehydration Alcohol withdrawal Alcoholic ketoacidosis Alcoholism Anemia Anxiety Carpal tunnel syndrome Chronic back pain Chronic pancreatitis Cirrhosis Enteritis GERD (gastroesophageal reflux disease) H. pylori infection Hepatitis A Hypokalemia Intractable nausea and vomiting Intractable nausea and vomiting Sciatica Tobacco dependency Surgical History H/O rotator cuff surgery H/O: hysterectomy History of appendectomy History of cholecystectomy Family History Denies family history of Diabetes CAD (coronary artery disease) Dementia Social History Smoking and tobacco status: current every day smoker Alcohol intake: current Desire information about alcohol rehabilitation?: No Counseling given: Yes Last alcohol use date: 02/15/19 Vitals/I&O/Wt Last Vital Signs Temp 98.3 F 01/14/22 08:54 Pulse 116 H 01/14/22 11:24 Resp 20 H 01/14/22 11:24 BP 113/82 01/14/22 11:30 Pulse Ox 100 01/14/22 11:24 O2 Del Method 01/14/22 11:24 Weight last 48 hrs Weight 75.296 kg Physical Exam Narrative: at bedside Const: COMMON NORMALS: patient oriented x3 and alert GENERAL APPEARANCE: cooperative and anxious ORIENTATION/CONSCIOUSNESS: Yes awake HENMT: COMMON NORMALS: oropharynx normal Neck/C-Spine: COMMON NORMALS: no JVD Resp: COMMON NORMALS: normal respiratory effort and clear to auscultation bilaterally AUSCULTATION: clear to auscultation bilaterally Cardio: COMMON NORMALS: no JVD, regular rhythm, S1 normal heart sound present, S2 normal heart sound present and No murmurs present (Cardio) RHYTHM: regular rhythm HEART SOUNDS: S1 normal heart sound present and S2 normal heart sound present GI: COMMON NORMALS: Normal to inspection, nondistended, normoactive bowel sounds present and Soft to palpation PALPATION: Yes Soft to palpation and Yes Tenderness to palpation present (GI) Details: LUQ, RUQ and other (Epigastric) Extremity: COMMON NORMALS: no joint enlargement and no pedal edema Neuro: COMMON NORMALS: patient oriented x3 and moves all extremities SENSORIUM/ORIENTATION: Yes alert Skin: COMMON NORMALS: no rashes or lesions noted GENERAL SKIN EXAM: no rashes or lesions noted Data 01/14/22 09:40 01/14/22 09:40 A&P Assessment and plan (1) Nausea and vomiting: Suspect secondary to alcohol induced gastritis, she states also took ibuprofen yesterday due to abdominal pain. Discussed with her to avoid EtOH, also avoid NSAIDs. Will increase PPI to 40 mg twice daily IV. Zofran as needed for nausea. For now n.p.o. with sips, chips and meds. Check Flu, COVID (2) Gastritis: As above. (3) Alcoholic hepatitis: With AST 162, ALT 92. Ratio >2:1. Madrey's discriminant 13.4. No glucocorticoids. Supportive care. Reassess liver parameters. (4) Pancytopenia: Continue to EtOH. Reassess blood counts. (5) Abdominal pain: Suspected secondary to EtOH and NSAID induced gastritis. Known gastritis. Appears to also have UTI for which recently was prescribed Cipro but had not started yet. Initiate. History of pancreatitis, although lipase is not elevated. No significant signs of pancreatitis on CT. Does not have symptoms of chronic pancreatitis. Doubt pancreatitis at this time. On CT noted interval worsening of hepatomegaly/hepatic steatosis. Incidentally noted stable extrahepatic biliary duct dilation. (6) Macrocytic anemia: Likely secondary to EtOH. Supplement thiamine, folic acid. Needs to abstain from alcohol. Cussed with her . (7) Hypokalemia: Potassium 2.6. Place in observation for further giving replacement for magnesium, potassium. Recheck. (8) Hypomagnesemia: Magnesium 1. Receiving placed for magnesium. Follow-up level. (9) Dehydration: Gentle hydration with LR. (10) Elevated bilirubin: With history of cirrhosis, currently with alcoholic hepatitis. Will check fraction. Follow-up liver parameters. Check GB US. (11) Tobacco dependency: This cussed with her and her smoking cessation for about 3 and half minutes she understands she needs to quit due to risk not only of progression of COPD and lung disease, but also risk of ND, CVA, risk of malignancy. Other complications. Nicotine replacement. (12) Alcohol dependence: Ativan per [facility] protocol. Supplement timing, folic acid. Discussed will benefit from cessation, she has been cut down, intends to continue to try to quit. She is rather tearful, anxious, restless, shifting about in bed, appears may be going into withdrawal. We will give one dose of Librium. (13) UTI (urinary tract infection): Recently diagnosed, has not yet started antibiotic. Initiate. Has not yet provided urine sample. UA pending. Has not yet urinated. Declines straight cath at this time. Wants to try to urinate by drinking more water. In case no success we will also request bladder scan. Plan Constipation: Add bowel regimen, MiraLAX twice daily COPD: Possible minimal exacerbation. Breathing treatments, scheduled and as needed. Fall: 2 weeks ago tripped over her grandchild, fell on the edge of the bed hitting left side lower chest/flank. May be contributing to her pain. Headache: Reports 2 weeks ago headache in the back of her neck radiating up to the back of her head which had resolved. Currently no headache. IS. Known gastritis Liver cirrhosis Reports 2 prior episodes of pancreatitis GERD Other comorbidities. Attestations Medical Necessity Statement*: Place in observation for management of nausea and vomiting, EtOH and NSAID induced gastritis, EtOH induced hepatitis, severe electrolyte deficiencies. Coding Level of Care Code Acute Recording Studio Intern for [facility] Michelle Diagnoses Nausea and vomiting R11.2 Gastritis K29.70 Alcoholic hepatitis K70.10 Pancytopenia D61.818 Abdominal pain R10.9 Macrocytic anemia D53.9 Hypokalemia E87.6 Hypomagnesemia E83.42 Dehydration E86.0 Elevated bilirubin R17 Tobacco dependency F17.200 Alcohol dependence F10.20 UTI (urinary tract infection) N39.0
--- NOTE | 2022-01-14 15:23 | USR_ITS ---
PROCEDURE INFORMATION: Exam: US Abdomen, Limited; Right Upper Quadrant Exam date and time: 01/15/2022 12:30 AM Age: 51 years old Clinical indication: Abnormal findings; Abnormal lab test; Elevated liver enzymes; Prior surgery; Surgery date: 6+ months; Surgery type: Gb removed; Additional info: Elev bili - assess for any other causes, apart from ETOH hepatitis TECHNIQUE: Imaging protocol: Real time ultrasound of the abdomen with image documentation. Limited exam focused on the right upper quadrant. COMPARISON: US gall bladder [id number] 09/28/2021 11:12 PM FINDINGS: Liver: Somewhat increased echogenicity of the liver may indicate fatty infiltration. The liver appears somewhat enlarged, with right lobe length of 22-23 cm. No definite/significant focal hepatic abnormality. The main portal vein appears patent, with hepatopetal flow. Gallbladder: Prior cholecystectomy. Biliary ducts: No visible biliary dilation, common duct measures 7.2 mm. Pancreas: The pancreas is not well visualized at this time. Right kidney: Images of the right kidney show no hydronephrosis. US/US gall bladder [id number] IMPRESSION: 1. Prior cholecystectomy, no visible biliary tree dilation. 2. Hepatomegaly, with suspected fatty infiltration of the liver. 3. Other findings discussed above.
[2022-01-14 16:25] LABS: Troponin 5 6HR 9.78 ng/L (0-10)
[2022-01-14 16:28] LABS: Troponin 5 6HR Delta -1.22 ng/L (0-12)
[2022-01-14] MEDS: pantoprazole 40 mg SDV IVP (16:38)
[2022-01-14] MEDS: chlordiazePOXIDE 25 mg Capsule 50 MG PO (16:38)
[2022-01-14] MEDS: nicotine 21 mg Patch 1 PATCH TRANSDERMA (16:39)
[2022-01-14 16:46] LABS: Glucose Urine UA Norm (Normal); Protein Urine 1+ (Negative); Specific Gravity, Urine 1.005 (1.005-1.030); Urine Appearance Clear (CLEAR); Urine Color Orange (Yellow); pH Urine 6.5 (5-7)
[2022-01-14 16:47] LABS: Add Urine Microscopic? YES; Bilirubin Urine 2+ (Negative); Blood Urine 2+ (Negative); Ketones Urine 1+ (Negative); Leukocyte Esterase Urine Trace (Negative); Nitrate Urine Positive (Negative); RBC Urine 0-4 /hpf (0-2); Urobilinogen Urine 4+ mg/dL (Negative); WBC Urine 0-4 /hpf (0-5)
[2022-01-14 16:48] LABS: Add Urine Culture? Yes; Bacteria Urine 1+ /hpf
[2022-01-14] MEDS: polyethylene glycol 3350 Pkt 17 gm PO (18:33)
[2022-01-14] MEDS: ciprofloxacin 400 MG/200 ML PREMIX 200 MG IV (19:05)
[2022-01-14 19:11] LABS: Adenovirus Not Detected (NOT DETECT); Chlamydia Pneumoniae Not Detected (NOT DETECT); Coronavirus 229E,HKU1,NL63,OC4 Not Detected (NOT DETECT); Human Metapneumovirus Not Detected (NOT DETECT); Human Rhinovirus/Enterovirus Not Detected (NOT DETECT); Influenza A Not Detected (NOT DETECT); Influenza A H1 Not Detected (NOT DETECT); Influenza A H1-2009 Not Detected (NOT DETECT); Influenza A H3 Not Detected (NOT DETECT); Influenza B Not Detected (NOT DETECT); Mycoplasma Pneumoniae Not Detected (NOT DETECT); Parainfluenza Virus Type 1 Not Detected (NOT DETECT); Parainfluenza Virus Type 2 Not Detected (NOT DETECT); Parainfluenza Virus Type 3 Not Detected (NOT DETECT); Parainfluenza Virus Type 4 Not Detected (NOT DETECT); Respiratory Syncytial Virus A Not Detected (NOT DETECT); Respiratory Syncytial Virus B Not Detected (NOT DETECT); SARS-COV-2 Not Detected (NOT DETECT)
[2022-01-14 19:25] LABS: Influenza A by IFA Negative (Negative); Influenza B by IFA Negative (Negative)
[2022-01-14] MEDS: ipratropium-albuterol 3 mL Neb INHALATION (20:09)
[2022-01-14] MEDS: lactated ringers 1,000 ML 30 ML IV (20:49)
--- NOTE | 2022-01-14 23:38 | PC.NURSE ---
Pt referred to Dr. Urban for review of pt requested for sleep medications. NO received and noted for Restoril 15mg po x 1 dose now.
[2022-01-14] MEDS: temazepam 15 mg Capsule PO (23:45)
[2022-01-15] VITALS (13 sets, daily range): BP systolic 82–112; BP diastolic 54–73; PULSE 74–119; RESP 15–18; TEMP 36.7–37.3; O2SAT 93–99
[2022-01-15] MEDS: pantoprazole 40 mg SDV IVP ×2 (02:48→15:34)
[2022-01-15] MEDS: ondansetron 2 mg/ML SDV 2 mL 4 MG IVP ×3 (02:48→19:27)
[2022-01-15] MEDS: ipratropium-albuterol 3 mL Neb INHALATION ×4 (02:57→20:32)
[2022-01-15 05:17] LABS: Basophils % 0.5 %; Eosinophils # 0.1 10^3/uL (0.0-0.8); Eosinophils % 2.1 %; Hematocrit 22.4 % (37.0-47.0); Hemoglobin 7.8 g/dL (11.5-15.3); Lymphocytes # 0.8 10^3/uL (0.8-4.8); Mean Corpuscular HGB Conc 34.8 g/dL (30.0-36.0); Mean Corpuscular Volume 109.3 fl (81-99); Mean Platelet Volume 11.2 fL (7.4-10.4); Monocytes # 0.4 10^3/uL (0.2-0.9); Monocytes % 11.8 %; Neutrophils # 2.36 10^3/uL (1.8-7.7); Neutrophils % 63.3 %; Nucleated Red Blood Cells % 0.5 %; Platelet Count 77 10^3/cmm (130-400); Red Blood Count 2.05 10^6/uL (4.1-5.3); Red Cell Distribution Width 26.6 % (12.1-15.1); White Blood Count 3.7 10^3/uL (4.0-10.0)
[2022-01-15 05:40] LABS: Alanine Aminotransferase 66 U/L (0-33); Albumin Level 3.1 g/dL (3.5-5.2); Alkaline Phosphatase 204 U/L (35-105); Anion Gap 14.1 (5-19); Aspartate Amino Transferase 236 U/L (0-32); Blood Urea Nitrogen 9 mg/dL (6-20); Calcium 8.6 mg/dL (8.5-10.5); Carbon Dioxide 24 mmol/L (22-29); Chloride 90 mmol/L (98-107); Globulin 3.8 g/dL (1.3-4.6); Glomerular Filtration Rate 104.6 mL/min (90-130); Glucose 104 mg/dL (65-115); Magnesium 1.8 mg/dL (1.7-2.3); Osmolality Calculated 261 mOsm/kg (285-295); Sodium 126 mmol/L (136-145); Total Bilirubin 6.4 mg/dL (0.15-1.2); Total Protein 6.9 g/dL (6.6-8.7)
[2022-01-15 05:51] LABS: Potassium 2.1 mmol/L (3.5-5.1)
--- NOTE | 2022-01-15 05:57 | PC.NURSE ---
Pt K+ level this am 2.1 w/previous result 2.6. Referred to physician for review. Awaiting orders.
--- NOTE | 2022-01-15 06:05 | PC.NURSE ---
NO received and noted for K+ 40 meq IV. pt notified of new orders.
[2022-01-15] MEDS: lidocaine 1% 5 ML in potassium chloride premix 100 ML 25 ML IV (06:43)
[2022-01-15] MEDS: multivitamin therapeutic Tablet 1 TAB PO (09:03)
[2022-01-15] MEDS: folic acid 1 mg Tablet PO (09:03)
[2022-01-15] MEDS: polyethylene glycol 3350 Pkt 17 gm PO ×2 (09:03→17:20)
[2022-01-15] MEDS: thiamine 100 mg Tablet PO (09:03)
[2022-01-15] MEDS: magnesium sulfate premix 2 GM/50 ML PIGGYBACK IV (11:04)
[2022-01-15] MEDS: ciprofloxacin 400 MG/200 ML PREMIX 200 MG IV (12:02)
--- NOTE | 2022-01-15 12:12 | XRR_ITS ---
PROCEDURE INFORMATION: Exam: XR Lumbosacral Spine Exam date and time: 01/15/2022 2:29 PM Age: 51 years old Clinical indication: Injury or trauma; Fall; Blunt trauma (contusions or hematomas); Additional info: Lb pain TECHNIQUE: Imaging protocol: Radiologic exam of the lumbosacral spine. Views: 2 or 3 views. COMPARISON: CT abdomen pelvis w con* [id number] 01/14/2022 12:43 PM FINDINGS: Bones/joints: Normal. No acute fracture. Lumbar spine dextroscoliosis Avina angle is 18 degrees between T12 and L4.. There is osteoarthritis with multilevel intervertebral disc space narrowing in the lower dorsal and upper lumbar spine Soft tissues: There is cholecystectomy XR/XR lumbar spine 2-3V* [id number] IMPRESSION: 1. No acute bony abnormality. 2. Dextroscoliosis Avina angle 18 degrees. 3. Status post cholecystectomy
[2022-01-15] MEDS: nicotine 21 mg Patch 1 PATCH TRANSDERMA (15:34)
--- NOTE | 2022-01-15 19:51 | PM.PN ---
Subjective Subjective: Feels weak. Had not vomited overnight. Trial of clear liquids states that she regurgitated a little bit of the broth she tried, although her nurse could not see the reported emesis. Still having abdominal pain, particularly right upper quadrant. Bothered by chronic back pain which states drives her to drinking alcohol. Cussed with her lab work from this morning, discussed findings of gallbladder ultrasound. Replacement of electrolytes. Vitals/I&O/Wt Last Vital Signs Temp 98.1 F 01/15/22 15:24 Pulse 107 H 01/15/22 15:24 Resp 18 01/15/22 18:36 BP 112/65 01/15/22 15:24 Pulse Ox 96 01/15/22 15:24 O2 Del Method 01/15/22 15:24 01/15/22 01/15/22 01/15/22 06:59 14:59 22:59 Intake Total 355 / 355 Balance 355 / 355 Weight last 48 hrs Weight 75.977 kg Weight 75.296 kg Weight 75.296 kg Physical Exam Narrative: at bedside Const: COMMON NORMALS: patient oriented x3 and alert GENERAL APPEARANCE: cooperative and anxious ORIENTATION/CONSCIOUSNESS: Yes awake HENMT: COMMON NORMALS: oropharynx normal Neck/C-Spine: COMMON NORMALS: no JVD Resp: COMMON NORMALS: normal respiratory effort and clear to auscultation bilaterally AUSCULTATION: clear to auscultation bilaterally Cardio: COMMON NORMALS: no JVD, regular rhythm, S1 normal heart sound present, S2 normal heart sound present and No murmurs present (Cardio) RHYTHM: regular rhythm HEART SOUNDS: S1 normal heart sound present and S2 normal heart sound present GI: COMMON NORMALS: Normal to inspection, nondistended, normoactive bowel sounds present and Soft to palpation PALPATION: Yes Soft to palpation and Yes Tenderness to palpation present (GI) Details: RUQ Extremity: COMMON NORMALS: no joint enlargement and no pedal edema Neuro: COMMON NORMALS: patient oriented x3 and moves all extremities SENSORIUM/ORIENTATION: Yes alert Skin: COMMON NORMALS: no rashes or lesions noted GENERAL SKIN EXAM: no rashes or lesions noted Data 01/15/22 05:04 01/15/22 05:04 A&P Assessment and plan (1) Nausea and vomiting: Overall improved, but still cannot tolerate clear liquids this morning. Continue PPI for gastritis. Supportive care for alcoholic hepatitis. Downgraded back again to sips with ice chips, she will let us know when she is feeling a little better wanting to try liquids again. Considered resuming NS, however, sodium did decrease quite significantly after his 130 last night. Will check urine sodium and osmolality. For now hold off additional IV fluid. Suspect secondary to alcohol induced gastritis, she states also took ibuprofen yesterday due to abdominal pain. Discussed with her to avoid EtOH, also avoid NSAIDs. Zofran as needed for nausea. Negative flu, COVID (2) Gastritis: As above. (3) Alcoholic hepatitis: T bili up higher to 6.4, but other parameters improving. Suspect bilirubin is lagging. AST is down to 236, ALT down to 66, alk phos down to 204. Recheck liver parameters With AST 162, ALT 92. Ratio >2:1. Madrey's discriminant 13.4. No glucocorticoids. Supportive care. (4) Pancytopenia: Continue to EtOH. Reassess blood counts. (5) Abdominal pain: With hepatomegaly, tender right upper quadrant. Secondary to alcohol induced hepatitis. Anticipate should hopefully continue to improve gradually. Suspected secondary to EtOH and NSAID induced gastritis. Known gastritis. Appears to also have UTI for which recently was prescribed Cipro but had not started yet. Initiate. No obvious pyonephritis on CT abdomen pelvis. History of pancreatitis, although lipase is not elevated. No significant signs of pancreatitis on CT. Does not have symptoms of chronic pancreatitis. Doubt pancreatitis at this time. On CT noted interval worsening of hepatomegaly/hepatic steatosis. Incidentally noted stable extrahepatic biliary duct dilation. (6) Macrocytic anemia: Likely secondary to EtOH. Supplement thiamine, folic acid. Needs to abstain from alcohol. Discussed with her and . (7) Hypokalemia: Additional potassium magnesium replacement. Recheck levels. (8) Hypomagnesemia: Replaced. Recheck. (9) Dehydration: Stopped LR this morning. Trial of clear liquids, but did not tolerate well. Consider resuming, but sodium has come down to 126. Hold off additional IVF for now. Obtain urine sodium, osmolality. (10) Elevated bilirubin: With history of cirrhosis, currently with alcoholic hepatitis. S/p cholecystectomy. GB US unremarkable. Conjugated bilirubin predominance. Suspect secondary to EtOH induced hepatitis. Check also acute mild hepatitis panel. (11) Tobacco dependency: Continue to encourage smoking cessation. Nicotine replacement. (12) Alcohol dependence: Ativan per [facility] protocol. Supplement timing, folic acid. Discussed will benefit from cessation, she has been cut down, intends to continue to try to quit. (13) UTI (urinary tract infection): Recently diagnosed, has not yet started antibiotic. Initiated. No obvious pyelonephritis on CT. No obstruction. Plan Constipation: bowel regimen, MiraLAX twice daily COPD: Possible minimal exacerbation. Breathing treatments, scheduled and as needed. Fall: 2 weeks ago tripped over her grandchild, fell on the edge of the bed hitting left side lower chest/flank. May be contributing to her pain. Headache: Reports 2 weeks ago headache in the back of her neck radiating up to the back of her head which had resolved. Currently no headache. IS. Known gastritis Liver cirrhosis Reports 2 prior episodes of pancreatitis GERD Other comorbidities. Attestations Medical Necessity Statement*: Continue admission for assessment management of alcohol related gastritis, alcohol related hepatitis, nausea and vomiting, UTI, at high risk of withdrawal. Coding Level of Care Code Acute Grizzlyman for [facility] Fwd Diagnoses Nausea and vomiting R11.2 Gastritis K29.70 Alcoholic hepatitis K70.10 Pancytopenia D61.818 Abdominal pain R10.9 Macrocytic anemia D53.9 Hypokalemia E87.6 Hypomagnesemia E83.42 Dehydration E86.0 Elevated bilirubin R17 Tobacco dependency F17.200 Alcohol dependence F10.20 UTI (urinary tract infection) N39.0
[2022-01-15] MEDS: LORazepam 2 mg Tablet PO (20:44)
[2022-01-15 21:37] LABS: Hepatitis A Antibody IgM Non-Reactive (Nonreactive); Hepatitis B Core IgM Non-Reactive (Nonreactive); Hepatitis B Surface Antigen Non-Reactive (Nonreactive); Hepatitis C Virus Antibody Non-Reactive (Nonreactive)
[2022-01-15 23:13] LABS: Blood Urea Nitrogen 8 mg/dL (6-20); Calcium 9.2 mg/dL (8.5-10.5); Carbon Dioxide 23 mmol/L (22-29); Chloride 94 mmol/L (98-107); Glomerular Filtration Rate 129.1 mL/min (90-130); Glucose 86 mg/dL (65-115); Osmolality Calculated 270 mOsm/kg (285-295); Sodium 131 mmol/L (136-145)
[2022-01-15 23:18] LABS: Anion Gap 16.6 (5-19)
[2022-01-15 23:19] LABS: Potassium 2.6 mmol/L (3.5-5.1)
[2022-01-16] VITALS (14 sets, daily range): BP systolic 89–96; BP diastolic 59–65; PULSE 88–104; RESP 16–20; TEMP 36.4–36.9; O2SAT 95–99
[2022-01-16] MEDS: potassium chloride ER 20 mEq Tablet 40 MEQ PO (00:13)
[2022-01-16] MEDS: ciprofloxacin 400 MG/200 ML PREMIX 200 MG IV ×2 (00:13→13:47)
[2022-01-16 01:10] LABS: Urine Random Sodium 12 mmol/L
[2022-01-16] MEDS: ipratropium-albuterol 3 mL Neb INHALATION ×3 (03:05→19:54)
[2022-01-16] MEDS: pantoprazole 40 mg SDV IVP ×2 (03:33→15:51)
[2022-01-16] MEDS: ondansetron 2 mg/ML SDV 2 mL 4 MG IVP ×2 (03:48→13:54)
[2022-01-16 05:47] LABS: Basophils % 0.6 %; Eosinophils # 0.1 10^3/uL (0.0-0.8); Eosinophils % 2.4 %; Hemoglobin 6.9 g/dL (11.5-15.3); Lymphocytes # 0.9 10^3/uL (0.8-4.8); Lymphocytes % 26.5 %; Mean Corpuscular HGB Conc 33.7 g/dL (30.0-36.0); Mean Corpuscular Hemoglobin 38.8 pg (28.0-34.0); Mean Corpuscular Volume 115.2 fl (81-99); Monocytes # 0.4 10^3/uL (0.2-0.9); Monocytes % 12.8 %; Neutrophils # 1.91 10^3/uL (1.8-7.7); Neutrophils % 56.8 %; Nucleated Red Blood Cells % 0 %; Platelet Count 70 10^3/cmm (130-400); Red Blood Count 1.78 10^6/uL (4.1-5.3); Red Cell Distribution Width 26.9 % (12.1-15.1); White Blood Count 3.4 10^3/uL (4.0-10.0)
[2022-01-16 06:16] LABS: Alanine Aminotransferase 55 U/L (0-33); Albumin Level 3.2 g/dL (3.5-5.2); Alkaline Phosphatase 183 U/L (35-105); Anion Gap 17.5 (5-19); Aspartate Amino Transferase 190 U/L (0-32); Blood Urea Nitrogen 7 mg/dL (6-20); Calcium 9.2 mg/dL (8.5-10.5); Carbon Dioxide 23 mmol/L (22-29); Chloride 95 mmol/L (98-107); Globulin 3.5 g/dL (1.3-4.6); Glomerular Filtration Rate 104.6 mL/min (90-130); Glucose 80 mg/dL (65-115); Magnesium 2.1 mg/dL (1.7-2.3); Osmolality Calculated 273 mOsm/kg (285-295); Sodium 133 mmol/L (136-145); Total Bilirubin 5.5 mg/dL (0.15-1.2); Total Protein 6.7 g/dL (6.6-8.7)
[2022-01-16 06:19] LABS: Potassium 2.5 mmol/L (3.5-5.1)
[2022-01-16 08:14] LABS: Hematocrit 20.5 % (37.0-47.0); Slide Review Slide Review Perform
--- NOTE | 2022-01-16 08:19 | PC.NURSE ---
Critical lab report given to day shift nurse at shift change. No new orders received from Dr. Pulido after notification.
[2022-01-16] MEDS: potassium chloride ER 20 mEq Tablet 60 MEQ PO (08:52)
[2022-01-16] MEDS: multivitamin therapeutic Tablet 1 TAB PO (08:52)
[2022-01-16] MEDS: thiamine 100 mg Tablet PO (08:52)
[2022-01-16] MEDS: folic acid 1 mg Tablet PO (08:53)
[2022-01-16] MEDS: LORazepam 2 mg/mL INJ 1 mL IM (10:44)
[2022-01-16] MEDS: sodium chloride 0.9% (100 ml) 100 ML 10 ML (10:44)
--- NOTE | 2022-01-16 11:44 | PC.CHAP ---
Pastoral Care Encounter/Spiritual Assessment Type of Contact [] Declined drink mixer visit [] Patient/Family/Request visit [] Outpatient visit [] Follow-up visit [] Physician referral [] Code/Alert [x] Routine visit [] Staff referral [] Actively dying [] Patient sleeping [] Family support [] [] Out of room [] Palliative care [] [] Receiving care in room [] Pre-surgical visit [] Trauma [] Long length of stay [] ICU visit [x] Other:isolation Relational/Emotional Strength [] Patient feels connected with others/family/visitors/staff [] Distress [] Loneliness/isolation [] Abandonment Spirituality of Patient [] Person of Lety [] Attends Advent of their Lety [] Believes in Prayer [] Reads Bible or Yarsanism materials [] There are Spiritual issues to be addressed Crop Consultant Interventions [] Prayer [] Active listening [] Non-anxious presence [] Spiritual/emotional support [] Crisis/trauma care [] Spiritual counseling [] Bereavement support [] Provided bereavement packet [] Provided Bible/devotional materials [] Provided toy/stuffed animal, coloring book to patient or family member [] Provided Communion [] Anointing/[place] [] Salvation [] Completed spiritual assessment [] Other: Impact on Illness or Injury [] Angry [] Fearful [] Anxious [] Often cries [] Exhaustion [] Unable to work [] Unable to attend synagogue [] Unable to walk/stand [] Unable to read [] Unable to drive [] Unable to eat/drink [] Unable to sleep [] Unable to be with family [] Patient intubated [] Other: Summary Time spent with patient
[2022-01-16] MEDS: nicotine 21 mg Patch 1 PATCH TRANSDERMA (15:51)
--- NOTE | 2022-01-16 19:32 | P.PN_ITS ---
Subjective Subjective: She is doing better today she feels. She regurgitated small amount of gastric juice last night. No vomiting this morning. She is willing to try some amount of clear liquids again. Discussed with her pancytopenia including anemia, blood transfusion. Vitals/I&O/Wt Last Vital Signs Temp 97.5 F L 01/16/22 16:00 Pulse 93 01/16/22 16:00 Resp 18 01/16/22 16:52 BP 96/64 01/16/22 16:00 Pulse Ox 98 01/16/22 16:00 O2 Del Method 01/16/22 16:00 01/16/22 01/16/22 01/16/22 06:59 14:59 22:59 Intake Total 200 / 555 1350 / 1350 200 / 1550 Output Total 200 / 200 Balance 0 / 355 1350 / 1350 200 / 1550 Weight last 48 hrs Weight 77.836 kg Weight 75.977 kg Physical Exam Const: COMMON NORMALS: patient oriented x3 and alert GENERAL APPEARANCE: cooperative and anxious ORIENTATION/CONSCIOUSNESS: Yes awake HENMT: COMMON NORMALS: oropharynx normal Neck/C-Spine: COMMON NORMALS: no JVD Resp: COMMON NORMALS: normal respiratory effort and clear to auscultation bilaterally AUSCULTATION: clear to auscultation bilaterally Cardio: COMMON NORMALS: no JVD, regular rhythm, S1 normal heart sound present, S2 normal heart sound present and No murmurs present (Cardio) RHYTHM: regular rhythm HEART SOUNDS: S1 normal heart sound present and S2 normal heart sound present GI: COMMON NORMALS: Normal to inspection, nondistended, normoactive bowel so unds present, Soft to palpation and non-tender PALPATION: Yes Soft to pal pation and Yes Tenderness to palpation present (GI) Extremity: COMMON NORMALS: no joint enlargement and no pedal edema Neuro: COMMON NORMALS: patient oriented x3 and moves all extremities SENSORIUM/ORIENTATION: Yes alert Skin: COMMON NORMALS: no rashes or lesions noted GENERAL SKIN EXAM: no rashes or lesions noted Data 01/16/22 04:14 01/16/22 04:14 Micro: Microbiology 01/14/22 14:30 Urine Culture - Preliminary Urine,Clean Catch Gram Negative Rods A&P Assessment and plan (1) Nausea and vomiting: Slightly better. Trial of clear liquids. Continue PPI. Alcoholic hepatitis appears to be showing improvement. Overall improved, but still cannot tolerate clear liquids this morning. Continue PPI for gastritis. Supportive care for alcoholic hepatitis. Downgraded back again to sips with ice chips, she will let us know when she is feeling a little better wanting to try liquids again. Considered resuming NS, however, sodium did decrease quite significantly after his 130 last night. Will check urine sodium and osmolality. For now hold off additional IV fluid. Suspect secondary to alcohol induced gastritis, she states also took ibuprofen yesterday due to abdominal pain. Discussed with her to avoid EtOH, also avoid NSAIDs. Zofran as needed for nausea. Negative flu, COVID (2) Gastritis: As above. (3) Alcoholic hepatitis: T bili up higher to 6.4, but other parameters improving. Suspect bilirubin is lagging. AST is down to 236, ALT down to 66, alk phos down to 204. Recheck liver parameters With AST 162, ALT 92. Ratio >2:1. Madrey's discriminant 13.4. No glucocorticoids. Supportive care. (4) Pancytopenia: Bone marrow suppression secondary to EtOH. Transfusion. Reassess blood counts. (5) Abdominal pain: With hepatomegaly, tender right upper quadrant. Secondary to alcohol induced hepatitis. Anticipate should hopefully continue to improve gradually. Suspected secondary to EtOH and NSAID induced gastritis. Known gastritis. Appears to also have UTI for which recently was prescribed Cipro but had not started yet. Initiate. No obvious pyonephritis on CT abdomen pelvis. History of pancreatitis, although lipase is not elevated. No significant signs of pancreatitis on CT. Does not have symptoms of chronic pancreatitis. Doubt pancreatitis at this time. On CT noted interval worsening of hepatomegaly/hepatic steatosis. Incidentally noted stable extrahepatic biliary duct dilation. (6) Macrocytic anemia: Likely secondary to EtOH. Supplement thiamine, folic acid. Needs to abstain from alcohol. Discussed with her and . (7) Hypokalemia: Again hypokalemia, given additional potassium last night, given additional this morning. Recheck levels. (8) Hypomagnesemia: Better. Recheck. (9) Dehydration: Trial of CLD Status post IV hydration. (10) Elevated bilirubin: With history of cirrhosis, currently with alcoholic hepatitis. S/p cholecystectomy. GB US unremarkable. Conjugated bilirubin predominance. Suspect secondary to EtOH induced hepatitis. Check also acute mild hepatitis panel. (11) Tobacco dependency: Continue to encourage smoking cessation. Nicotine replacement. (12) Alcohol dependence: Ativan per [facility] protocol. Supplement timing, folic acid. Discussed will benefit from cessation, she has been cut down, intends to continue to try to quit. (13) UTI (urinary tract infection): Recently diagnosed, has not yet started antibiotic. Initiated. No obvious pyelonephritis on CT. No obstruction. Plan Constipation: bowel regimen, MiraLAX twice daily COPD: Possible minimal exacerbation. Breathing treatments, scheduled and as needed. Fall: 2 weeks ago tripped over her grandchild, fell on the edge of the bed hitting left side lower chest/flank. May be contributing to her pain. Headache: Reports 2 weeks ago headache in the back of her neck radiating up to the back of her head which had resolved. Currently no headache. IS. Known gastritis Liver cirrhosis Reports 2 prior episodes of pancreatitis GERD Other comorbidities. Attestations Medical Necessity Statement*: Continue admission for management of EtOH related gastritis, hepatitis, pancytopenia, severe electrolyte deficiency. Coding Level of Care Code Acute Logistics Tech for [facility] Fwd Diagnoses Nausea and vomiting R11.2 Gastritis K29.70 Alcoholic hepatitis K70.10 Pancytopenia D61.818 Abdominal pain R10.9 Macrocytic anemia D53.9 Hypokalemia E87.6 Hypomagnesemia E83.42 Dehydration E86.0 Elevated bilirubin R17 Tobacco dependency F17.200 Alcohol dependence F10.20 UTI (urinary tract infection) N39.0
[2022-01-16 20:24] LABS: Hemoglobin 9.9 g/dL (11.5-15.3)
[2022-01-16 20:45] LABS: Potassium 3.3 mmol/L (3.5-5.1)
[2022-01-16] MEDS: temazepam 15 mg Capsule PO (21:39)
[2022-01-16] MEDS: acetaminophen 500 mg Tablet PO (21:39)
[2022-01-16] MEDS: LORazepam 2 mg Tablet PO (22:39)
[2022-01-17] VITALS (10 sets, daily range): BP systolic 92–104; BP diastolic 54–71; PULSE 74–97; RESP 16–20; TEMP 36.4–37; O2SAT 94–98
[2022-01-17] MEDS: ondansetron 2 mg/ML SDV 2 mL 4 MG IVP ×2 (00:27→08:13)
[2022-01-17] MEDS: ciprofloxacin 400 MG/200 ML PREMIX 200 MG IV ×2 (00:53→13:54)
[2022-01-17] MEDS: pantoprazole 40 mg SDV IVP ×2 (03:43→16:29)
[2022-01-17] MEDS: acetaminophen 500 mg Tablet PO (03:50)
[2022-01-17 04:57] LABS: Basophils % 0.6 %; Eosinophils # 0.1 10^3/uL (0.0-0.8); Eosinophils % 2.9 %; Hematocrit 25.7 % (37.0-47.0); Hemoglobin 8.8 g/dL (11.5-15.3); Lymphocytes % 30.4 %; Mean Corpuscular HGB Conc 34.2 g/dL (30.0-36.0); Mean Corpuscular Hemoglobin 37.4 pg (28.0-34.0); Mean Corpuscular Volume 109.4 fl (81-99); Mean Platelet Volume 11.5 fL (7.4-10.4); Monocytes # 0.4 10^3/uL (0.2-0.9); Monocytes % 12.3 %; Neutrophils # 1.82 10^3/uL (1.8-7.7); Neutrophils % 53.2 %; Nucleated Red Blood Cells % 0.6 %; Platelet Count 80 10^3/cmm (130-400); Red Blood Count 2.35 10^6/uL (4.1-5.3); White Blood Count 3.4 10^3/uL (4.0-10.0)
[2022-01-17 05:19] LABS: Alanine Aminotransferase 53 U/L (0-33); Albumin Level 3.2 g/dL (3.5-5.2); Alkaline Phosphatase 183 U/L (35-105); Anion Gap 17.3 (5-19); Aspartate Amino Transferase 177 U/L (0-32); Blood Urea Nitrogen 6 mg/dL (6-20); Calcium 9.2 mg/dL (8.5-10.5); Carbon Dioxide 21 mmol/L (22-29); Chloride 98 mmol/L (98-107); Globulin 3.4 g/dL (1.3-4.6); Glomerular Filtration Rate 129.1 mL/min (90-130); Glucose 69 mg/dL (65-115); Magnesium 1.6 mg/dL (1.7-2.3); Osmolality Calculated 272 mOsm/kg (285-295); Potassium 3.3 mmol/L (3.5-5.1); Sodium 133 mmol/L (136-145); Total Bilirubin 6.1 mg/dL (0.15-1.2); Total Protein 6.6 g/dL (6.6-8.7)
[2022-01-17] MEDS: multivitamin therapeutic Tablet 1 TAB PO (08:13)
[2022-01-17] MEDS: folic acid 1 mg Tablet PO (08:13)
[2022-01-17] MEDS: thiamine 100 mg Tablet PO (08:13)
[2022-01-17] MEDS: ipratropium-albuterol 3 mL Neb INHALATION ×3 (08:20→21:36)
[2022-01-17] MEDS: magnesium sulfate premix 2 GM/50 ML PIGGYBACK IV (09:51)
[2022-01-17] MEDS: lanolin oint 7 gm 1 APPLIC TOPICAL (10:55)
[2022-01-17] MEDS: sucralfate 1 gm/10 mL Oral Liq UDC PO ×3 (11:32→20:34)
[2022-01-17] MEDS: sodium chloride 0.9% 1,000 ML 30 ML IV (11:37)
[2022-01-17 15:40] LABS: Osmolality Urine 152 mOsm/kg (50-1200)
[2022-01-17] MEDS: nicotine 21 mg Patch 1 PATCH TRANSDERMA (16:29)
--- NOTE | 2022-01-17 17:47 | P.PN_ITS ---
Subjective Subjective: Shows that she has been having persistence of nausea, epigastric discomfort, reports had additional episode of vomiting. He did not feel like trying any clear liquids. She has been bothered also by her back pain, requests for increasing the dose of her pain medication. Vitals/I&O/Wt Last Vital Signs Temp 97.7 F 01/17/22 15:32 Pulse 79 01/17/22 16:35 Resp 18 01/17/22 16:35 BP 96/66 01/17/22 15:32 Pulse Ox 98 01/17/22 16:35 O2 Del Method 01/17/22 16:35 01/17/22 01/17/22 01/17/22 06:59 14:59 22:59 Intake Total / 1969 250 / 250 Balance 1969 250 / 250 Weight last 48 hrs Weight 79.832 kg Weight 77.836 kg Physical Exam Narrative: at bedside Const: COMMON NORMALS: patient oriented x3 and alert GENERAL APPEARANCE: cooperative and anxious ORIENTATION/CONSCIOUSNESS: Yes awake HENMT: COMMON NORMALS: oropharynx normal Neck/C-Spine: COMMON NORMALS: no JVD Resp: COMMON NORMALS: normal respiratory effort and clear to auscultation bilaterally AUSCULTATION: clear to auscultation bilaterally Cardio: COMMON NORMALS: no JVD, regular rhythm, S1 normal heart sound present, S2 normal heart sound present and No murmurs present (Cardio) RHYTHM: regular rhythm HEART SOUNDS: S1 normal heart sound present and S2 normal heart sound present GI: COMMON NORMALS: Normal to inspection, nondistended, normoactive bowel sounds present and Soft to palpation PALPATION: Yes Soft to palpation and Yes Tenderness to palpation present (GI) (Epigastric, right side) Extremity: COMMON NORMALS: no joint enlargement and no pedal edema Neuro: COMMON NORMALS: patient oriented x3 and moves all extremities SENSORIUM/ORIENTATION: Yes alert Psych: MOOD & AFFECT: Yes tearful Skin: COMMON NORMALS: no rashes or lesions noted GENERAL SKIN EXAM: no rashes or lesions noted Data 01/17/22 04:23 01/17/22 04:23 Micro: Microbiology 01/14/22 14:30 Urine Culture - Final Urine,Clean Catch Escherichia coli A&P Assessment and plan (1) Nausea and vomiting: She will let us know when she is feeling slightly better again to try clear liquids. In the meantime continue PPI twice daily. Discussed with her we will also add sucralfate. Resume low rate IV hydration. Suspect secondary to alcohol induced gastritis, she states also took ibuprofen yesterday due to abdominal pain with right side tenderness secondary to significant hepatomegaly. Additionally possible abdominal wall soreness with previously known for source of emesis. Discussed with her to avoid EtOH, also avoid NSAIDs. Blood pressure soft, 96/66. Discussed with her will be concerned further escalating pain medication dose. To decrease blood pressure any further. See if we can give her some localized relief also with lidocaine patch, conservative measures. Zofran as needed for nausea. Negative flu, COVID (2) Gastritis: As above. (3) Alcoholic hepatitis: This is continuing to gradually improve. Transaminitis improving. There is lag with improvement of T bili and alk phos. Recheck liver parameters With AST 162, ALT 92. Ratio >2:1. Madrey's discriminant 13.4. No glucocorticoids. Supportive care. Ultrasound results appreciated. Acute viral hepatitis panel is unremarkable. (4) Pancytopenia: Improving. Bone marrow suppression secondary to EtOH. Transfusion. Reassess blood counts. (5) Abdominal pain: With hepatomegaly, tender right upper quadrant. Secondary to alcohol induced hepatitis. Anticipate should hopefully continue to improve gradually. Suspected secondary to EtOH and NSAID induced gastritis. Known gastritis. Appears to also have UTI for which recently was prescribed Cipro but had not started yet. Initiate. No obvious pyonephritis on CT abdomen pelvis. History of pancreatitis, although lipase is not elevated. No significant signs of pancreatitis on CT. Does not have symptoms of chronic pancreatitis. Doubt pancreatitis at this time. On CT noted interval worsening of hepatomegaly/hepatic steatosis. Incidentally noted stable extrahepatic biliary duct dilation. (6) Macrocytic anemia: Likely secondary to EtOH. Supplement thiamine, folic acid. Needs to abstain from alcohol. Discussed with her and . (7) Hypokalemia: Levels are improving. Additional replacement. ARecheck levels. (8) Hypomagnesemia: 1.6. Given replacement. Recheck. (9) Dehydration: Trial of CLD when ready Status post IV hydration. (10) Elevated bilirubin: With history of cirrhosis, currently with alcoholic hepatitis. S/p cholecystectomy. GB US unremarkable. Conjugated bilirubin predominance. Suspect secondary to EtOH induced hepatitis. Unremarkable acute mild hepatitis panel. (11) Tobacco dependency: Continue to encourage smoking cessation. Nicotine replacement. (12) Alcohol dependence: Ativan per [facility] protocol. Supplement timing, folic acid. Discussed will benefit from cessation, she has been cut down, intends to continue to try to quit. states she had declined rehabilitation on multiple occasions in the past. This has been a struggle for them as she continues to self medicate her back pain with alcohol. (13) UTI (urinary tract infection): Recently diagnosed, has not yet started antibiotic. Initiated. No obvious pyelonephritis on CT. No obstruction. Plan Constipation: bowel regimen, MiraLAX twice daily COPD: Possible minimal exacerbation. Breathing treatments, scheduled and as needed. Fall: 2 weeks ago tripped over her grandchild, fell on the edge of the bed hitting left side lower chest/flank. May be contributing to her pain. Headache: Reports 2 weeks ago headache in the back of her neck radiating up to the back of her head which had resolved. Currently no headache. IS. Known gastritis Liver cirrhosis Reports 2 prior episodes of pancreatitis GERD Other comorbidities. Attestations Medical Necessity Statement*: Continue admission for assessment of management of alcohol-related hepatitis, gastritis, pancytopenia, severe electrolyte deficiencies, so far unable to tolerate oral intake. Coding Level of Care Code Acute President And Cmo for g Fwd Diagnoses Nausea and vomiting R11.2 Gastritis K29.70 Alcoholic hepatitis K70.10 Pancytopenia D61.818 Abdominal pain R10.9 Macrocytic anemia D53.9 Hypokalemia E87.6 Hypomagnesemia E83.42 Dehydration E86.0 Elevated bilirubin R17 Tobacco dependency F17.200 Alcohol dependence F10.20 UTI (urinary tract infection) N39.0
[2022-01-17] MEDS: lidocaine 1% 5 ML in potassium chloride premix 100 ML 50 ML IV (18:15)
[2022-01-17] MEDS: temazepam 15 mg Capsule PO (20:34)
[2022-01-18] VITALS (11 sets, daily range): BP systolic 96–104; BP diastolic 62–71; PULSE 83–93; RESP 16–18; TEMP 36.6–37.2; O2SAT 95–100; BMI 30.2
[2022-01-18] MEDS: ciprofloxacin 400 MG/200 ML PREMIX 200 MG IV (00:28)
[2022-01-18] MEDS: pantoprazole 40 mg SDV IVP (03:16)
[2022-01-18] MEDS: ondansetron 2 mg/ML SDV 2 mL 4 MG IVP ×2 (04:21→20:04)
[2022-01-18 05:21] LABS: Basophils % 0.7 %; Eosinophils # 0.1 10^3/uL (0.0-0.8); Eosinophils % 3.4 %; Hematocrit 22.4 % (37.0-47.0); Hemoglobin 7.8 g/dL (11.5-15.3); Lymphocytes # 0.7 10^3/uL (0.8-4.8); Lymphocytes % 23.4 %; Mean Corpuscular HGB Conc 34.8 g/dL (30.0-36.0); Mean Corpuscular Volume 109.3 fl (81-99); Mean Platelet Volume 11.1 fL (7.4-10.4); Monocytes # 0.5 10^3/uL (0.2-0.9); Monocytes % 18.6 %; Neutrophils # 1.55 10^3/uL (1.8-7.7); Neutrophils % 53.6 %; Nucleated Red Blood Cells % 0 %; Platelet Count 84 10^3/cmm (130-400); Red Blood Count 2.05 10^6/uL (4.1-5.3); Red Cell Distribution Width 30.4 % (12.1-15.1); White Blood Count 2.9 10^3/uL (4.0-10.0)
[2022-01-18 05:41] LABS: Magnesium 1.4 mg/dL (1.7-2.3)
[2022-01-18 05:42] LABS: Alanine Aminotransferase 47 U/L (0-33); Albumin Level 2.7 g/dL (3.5-5.2); Alkaline Phosphatase 175 U/L (35-105); Anion Gap 14.3 (5-19); Aspartate Amino Transferase 153 U/L (0-32); Blood Urea Nitrogen 5 mg/dL (6-20); Carbon Dioxide 23 mmol/L (22-29); Chloride 102 mmol/L (98-107); Globulin 3.6 g/dL (1.3-4.6); Glomerular Filtration Rate 129.1 mL/min (90-130); Glucose 111 mg/dL (65-115); Osmolality Calculated 280 mOsm/kg (285-295); Potassium 3.3 mmol/L (3.5-5.1); Sodium 136 mmol/L (136-145); Total Protein 6.3 g/dL (6.6-8.7)
[2022-01-18] MEDS: sucralfate 1 gm/10 mL Oral Liq UDC PO ×4 (06:17→20:04)
[2022-01-18] MEDS: ipratropium-albuterol 3 mL Neb INHALATION ×2 (07:57→13:53)
[2022-01-18] MEDS: multivitamin therapeutic Tablet 1 TAB PO (10:11)
[2022-01-18] MEDS: thiamine 100 mg Tablet PO (10:11)
[2022-01-18] MEDS: lidocaine 1% 5 ML in potassium chloride premix 100 ML 50 ML IV (10:11)
[2022-01-18] MEDS: folic acid 1 mg Tablet PO (10:11)
[2022-01-18] MEDS: magnesium sulfate premix 4 GM/100 ML PREMIX IV (10:25)
[2022-01-18] MEDS: nicotine 21 mg Patch 1 PATCH TRANSDERMA (16:25)
[2022-01-18] MEDS: ciprofloxacin 500 mg Tablet PO (17:18)
--- NOTE | 2022-01-18 17:21 | PC.NURSE ---
Notified Dr. Villa patient refuses miralax. States it makes her sick.
[2022-01-18] MEDS: bisacodyl 10 mg Supp PR (18:22)
[2022-01-18] MEDS: lidocaine 5% Patch 1 PATCH TOPICAL (20:04)
[2022-01-18] MEDS: temazepam 15 mg Capsule PO (20:04)
[2022-01-18] MEDS: sodium chloride 0.9% 1,000 ML 30 ML IV (20:06)
--- NOTE | 2022-01-18 20:35 | P.PN_ITS ---
Subjective Subjective: She states she is feeling a bit lightheaded when she sits up. She otherwise states she is actually feeling better today. She still having abdominal pain. She has been tolerating small amounts of clears. She does want to try something a bit more substantial. Vitals/I&O/Wt Last Vital Signs Temp 98.0 F 01/18/22 19:53 Pulse 90 01/18/22 19:53 Resp 16 01/18/22 20:07 BP 98/62 01/18/22 19:53 Pulse Ox 96 01/18/22 19:53 O2 Del Method 01/18/22 19:53 01/18/22 01/18/22 01/18/22 06:59 14:59 22:59 Intake Total 200 / 795 555 / 555 1224.5 / 1779.5 Balance 200 / 795 555 / 555 1224.5 / 1779.5 Weight last 48 hrs Weight 79.742 kg Weight 79.832 kg Physical Exam Const: COMMON NORMALS: patient oriented x3 and alert GENERAL APPEARANCE: cooperative and anxious ORIENTATION/CONSCIOUSNESS: Yes awake HENMT: COMMON NORMALS: oropharynx normal Neck/C-Spine: COMMON NORMALS: no JVD Resp: COMMON NORMALS: normal respiratory effort and clear to auscultation bilaterally AUSCULTATION: clear to auscultation bilaterally Cardio: COMMON NORMALS: no JVD, regular rhythm, S1 normal heart sound present, S2 normal heart sound present and No murmurs present (Cardio) RHYTHM: regular rhythm HEART SOUNDS: S1 normal heart sound present and S2 normal heart sound present GI: COMMON NORMALS: Normal to inspection, nondistended, normoactive bowel sounds present and Soft to palpation PALPATION: Yes Soft to palpation and Yes Tenderness to palpation present (GI) (right side) Extremity: COMMON NORMALS: no joint enlargement and no pedal edema Neuro: COMMON NORMALS: patient oriented x3 and moves all extremities SENSORIUM/ORIENTATION: Yes alert Psych: MOOD & AFFECT: Yes tearful Skin: COMMON NORMALS: no rashes or lesions noted GENERAL SKIN EXAM: no rashes or lesions noted Data 01/18/22 04:21 01/18/22 04:21 Micro: Microbiology 01/14/22 14:30 Urine Culture - Final Urine,Clean Catch Escherichia coli A&P Assessment and plan (1) Nausea and vomiting: She is feeling slightly better. She would like to try mechanical soft diet, will advance. Continue PPI twice daily. Discussed with her we will also add sucralfate. Suspect secondary to alcohol induced gastritis, she states also took ibuprofen yesterday due to abdominal pain with right side tenderness secondary to significant hepatomegaly. Additionally possible abdominal wall soreness with previously known for source of emesis. Discussed with her to avoid EtOH, also avoid NSAIDs. Blood pressure soft, 96/66. Discussed with her will be concerned further escalating pain medication dose. To decrease blood pressure any further. See if we can give her some localized relief also with lidocaine patch, conservative measures. Zofran as needed for nausea. Negative flu, COVID (2) Gastritis: Appears may be slowly improving. As above. (3) Alcoholic hepatitis: Improving. T bili down to 5. AST down to 153. ALT down to 47. Alk phos down to 175. Recheck liver parameters No glucocorticoids. Supportive care. Ultrasound results appreciated. Acute viral hepatitis panel is unremarkable. (4) Pancytopenia: Some fluctuation in blood counts. Bone marrow suppression secondary to EtOH. Anemia responded to RBC transfusion. Reassess blood counts. (5) Abdominal pain: With hepatomegaly, tender right upper quadrant. Secondary to alcohol induced hepatitis. Anticipate should hopefully continue to improve gradually. Suspected secondary to EtOH and NSAID induced gastritis. Known gastritis. Appears to also have UTI for which recently was prescribed Cipro but had not started yet. Initiate. No obvious pyonephritis on CT abdomen pelvis. History of pancreatitis, although lipase is not elevated. No significant signs of pancreatitis on CT. Does not have symptoms of chronic pancreatitis. Doubt pancreatitis at this time. On CT noted interval worsening of hepatomegaly/hepatic steatosis. Incidentally noted stable extrahepatic biliary duct dilation. (6) Macrocytic anemia: Likely secondary to EtOH. Supplement thiamine, folic acid. Needs to abstain from alcohol. Discussed with her and . (7) Hypokalemia: Again mildly low. Additional replacement. ARecheck levels. (8) Hypomagnesemia: 1.4, 4 g magnesium replacement. Recheck. (9) Dehydration: Oral intake as tolerating. We will see if can discontinue IV hydration. Status post IV hydration. (10) Elevated bilirubin: With history of cirrhosis, currently with alcoholic hepatitis. S/p cholecystectomy. GB US unremarkable. Conjugated bilirubin predominance. Tere pect secondary to EtOH induced hepatitis. Unremarkable acute mild hepatitis panel. (11) Tobacco dependency: Continue to encourage smoking cessation. Nicotine replacement. (12) Alcohol dependence: Ativan per [facility] protocol. Supplement timing, folic acid. Discussed will benefit from cessation, she has been cut down, intends to continue to try to qu it. states she had declined rehabilitation on multiple occasions in the past. This has been a struggle for them as she continues to self medicate her back pain with alcohol. (13) UTI (urinary tract infection): Recently diagnosed, has not yet started antibiotic. Initiated. No obvious pyelonephritis on CT. No obstruction. Plan Constipation: bowel regimen, MiraLAX twice daily COPD: Possible minimal exacerbation. Breathing treatments, scheduled and as needed. Fall: 2 weeks ago tripped over her grandchild, fell on the edge of the bed hitting left side lower chest/flank. May be contributing to her pain. Headache: Reports 2 weeks ago headache in the back of her neck radiating up to the back of her head which had resolved. Currently no headache. IS. Known gastritis Liver cirrhosis Reports 2 prior episodes of pancreatitis GERD Other comorbidities. Attestations Medical Necessity Statement*: Continue admission for assessment management of alcoholic gastritis, hepatitis, pancytopenia. Coding Level of Care Code Acute Commercial Designer for g Fwd Diagnoses Nausea and vomiting R11.2 Gastritis K29.70 Alcoholic hepatitis K70.10 Pancytopenia D61.818 Abdominal pain R10.9 Macrocytic anemia D53.9 Hypokalemia E87.6 Hypomagnesemia E83.42 Dehydration E86.0 Elevated bilirubin R17 Tobacco dependency F17.200 Alcohol dependence F10.20 UTI (urinary tract infection) N39.0
[2022-01-19] VITALS (15 sets, daily range): BP systolic 94–116; BP diastolic 62–80; PULSE 76–94; RESP 15–18; TEMP 36.6–37.3; O2SAT 94–98
[2022-01-19] MEDS: ipratropium-albuterol 3 mL Neb INHALATION ×2 (01:25→08:55)
[2022-01-19 03:52] LABS: Basophils % 0.8 %; Eosinophils # 0.1 10^3/uL (0.0-0.8); Eosinophils % 2.5 %; Hematocrit 23.5 % (37.0-47.0); Hemoglobin 8.1 g/dL (11.5-15.3); Lymphocytes % 27.3 %; Mean Corpuscular HGB Conc 34.5 g/dL (30.0-36.0); Mean Corpuscular Hemoglobin 37.5 pg (28.0-34.0); Mean Corpuscular Volume 108.8 fl (81-99); Monocytes # 0.6 10^3/uL (0.2-0.9); Monocytes % 17.4 %; Neutrophils # 1.86 10^3/uL (1.8-7.7); Neutrophils % 51.2 %; Nucleated Red Blood Cells % 0 %; Platelet Count 85 10^3/cmm (130-400); Red Blood Count 2.16 10^6/uL (4.1-5.3); Red Cell Distribution Width 30.8 % (12.1-15.1); White Blood Count 3.6 10^3/uL (4.0-10.0)
[2022-01-19] MEDS: ondansetron 2 mg/ML SDV 2 mL 4 MG IVP ×2 (04:06→19:52)
[2022-01-19 04:13] LABS: Alanine Aminotransferase 43 U/L (0-33); Albumin Level 2.9 g/dL (3.5-5.2); Alkaline Phosphatase 167 U/L (35-105); Anion Gap 12.6 (5-19); Aspartate Amino Transferase 134 U/L (0-32); Blood Urea Nitrogen 3 mg/dL (6-20); Carbon Dioxide 23 mmol/L (22-29); Chloride 105 mmol/L (98-107); Globulin 3.4 g/dL (1.3-4.6); Glomerular Filtration Rate 129.1 mL/min (90-130); Glucose 106 mg/dL (65-115); Magnesium 1.8 mg/dL (1.7-2.3); Osmolality Calculated 281 mOsm/kg (285-295); Potassium 3.6 mmol/L (3.5-5.1); Sodium 137 mmol/L (136-145); Total Bilirubin 4.2 mg/dL (0.15-1.2); Total Protein 6.3 g/dL (6.6-8.7)
[2022-01-19] MEDS: ciprofloxacin 500 mg Tablet PO ×2 (04:49→16:32)
[2022-01-19] MEDS: sucralfate 1 gm/10 mL Oral Liq UDC PO ×4 (06:01→19:52)
[2022-01-19] MEDS: multivitamin therapeutic Tablet 1 TAB PO (08:14)
[2022-01-19] MEDS: pantoprazole DR 40 mg Tablet PO ×2 (08:14→17:33)
[2022-01-19] MEDS: thiamine 100 mg Tablet PO (08:14)
[2022-01-19] MEDS: folic acid 1 mg Tablet PO (08:15)
[2022-01-19] MEDS: lidocaine 5% Patch 1 PATCH TOPICAL (08:18)
[2022-01-19] MEDS: LORazepam 2 mg Tablet PO (09:18)
--- NOTE | 2022-01-19 11:37 | PM.PN ---
Subjective Subjective: She states that she is feeling nauseated and that she did not vomited last night. Vitals/I&O/Wt Last Vital Signs Temp 98.4 F 01/19/22 11:29 Pulse 91 01/19/22 11:29 Resp 17 01/19/22 11:29 BP 98/63 01/19/22 11:29 Pulse Ox 98 01/19/22 11:29 O2 Del Method 01/19/22 11:29 01/18/22 01/19/22 01/19/22 22:59 06:59 14:59 Intake Total 1224.5 / 1779.5 412 / 412 Balance 1224.5 / 1779.5 412 / 412 Weight last 48 hrs Weight 84.368 kg Weight 79.742 kg Physical Exam Narrative: at bedside Const: COMMON NORMALS: patient oriented x3 and alert GENERAL APPEARANCE: cooperative and anxious ORIENTATION/CONSCIOUSNESS: Yes awake HENMT: COMMON NORMALS: oropharynx normal Neck/C-Spine: COMMON NORMALS: no JVD Resp: COMMON NORMALS: normal respiratory effort and clear to auscultation bilaterally AUSCULTATION: clear to auscultation bilaterally Cardio: COMMON NORMALS: no JVD, regular rhythm, S1 normal heart sound present, S2 normal heart sound present and No murmurs present (Cardio) RHYTHM: regular rhythm HEART SOUNDS: S1 normal heart sound present and S2 normal heart sound present GI: COMMON NORMALS: Normal to inspection, nondistended, normoactive bowel sounds present, Soft to palpation and non-tender PALPATION: Yes Soft to palpation and Yes Tenderness to palpation present (GI) (right side) Extremity: COMMON NORMALS: no joint enlargement and no pedal edema Neuro: COMMON NORMALS: patient oriented x3 and moves all extremities SENSORIUM/ORIENTATION: Yes alert Psych: MOOD & AFFECT: Yes tearful Skin: COMMON NORMALS: no rashes or lesions noted GENERAL SKIN EXAM: no rashes or lesions noted Data 01/19/22 03:40 01/19/22 03:40 A&P Assessment and plan (1) Nausea and vomiting: She again had vomiting last night. Discussed with him downgrading diet again to full liquids and see if she can tolerate that. Seems that she vomited after having tomato soup. We will add qualify for bland diet, no acidic foods. Continue gentle IV hydration. Continue PPI twice daily. Discussed with her we will also add sucralfate. Suspect secondary to alcohol induced gastritis, she states also took ibuprofen yesterday due to abdominal pain with right side tenderness secondary to significant hepatomegaly. Additionally possible abdominal wall soreness with previously known for source of emesis. Discussed with her to avoid EtOH, also avoid NSAIDs. Blood pressure soft, 96/66. Discussed with her will be concerned further escalating pain medication dose. To decrease blood pressure any further. See if we can give her some localized relief also with lidocaine patch, conservative measures. Zofran as needed for nausea. Negative flu, COVID (2) Gastritis: As above. Continue gentle IV hydration. (3) Alcoholic hepatitis: Slowly improving. T bili 4.2, AST 134, ALT 43, alk phos 167. Continue supportive care. Recheck liver parameters No glucocorticoids. Supportive care. Ultrasound results appreciated. Acute viral hepatitis panel is unremarkable. (4) Pancytopenia: Again pancytopenia, WBC 3.6, hemoglobin 8.1, platelets 85. Slight improvement from yesterday. ANC 1860. Follow-up blood counts. (5) Abdominal pain: With hepatomegaly, tender right upper quadrant. Secondary to alcohol induced hepatitis and gastritis. Anticipate should hopefully continue to improve gradually. Suspected secondary to EtOH and NSAID induced gastritis. Previously also visualized gastritis. Appears to also have UTI for which recently was prescribed Cipro but had not started yet. Initiate. No obvious pyonephritis on CT abdomen pelvis. History of pancreatitis, although lipase is not elevated. No significant signs of pancreatitis on CT. Does not have symptoms of chronic pancreatitis. Doubt pancreatitis at this time. On CT noted interval worsening of hepatomegaly/hepatic steatosis. Incidentally noted stable extrahepatic biliary duct dilation. (6) Macrocytic anemia: Likely secondary to EtOH. Supplement thiamine, folic acid. Needs to abstain from alcohol. Discussed with her and . (7) Hypokalemia: Again mildly low. Additional replacement. ARecheck levels. (8) Hypomagnesemia: Magnesium slightly better after placement, still 1.8. Additional magnesium. Recheck level in the morning. (9) Dehydration: As she again is having vomiting, not tolerating oral intake well, continue gentle IV hydration until reestablishes oral intake. (10) Elevated bilirubin: Slowly improving. Alcohol-related hepatitis. With history of cirrhosis. S/p cholecystectomy. GB US unremarkable. Conjugated bilirubin predominance. Unremarkable acute mild hepatitis panel. (11) Tobacco dependency: Continue to encourage smoking cessation. Nicotine replacement. (12) Alcohol dependence: She states would consider naltrexone to help cut down cravings from EtOH. Discussed with her with naltrexone also cannot have opioid pain medication concurrently. Ativan per [facility] protocol. Supplement timing, folic acid. Discussed will benefit from cessation, she has been cut down, intends to continue to try to quit. states she had declined rehabilitation on multiple occasions in the past. This has been a struggle for them as she continues to self medicate her back pain with alcohol. (13) UTI (urinary tract infection): Switch Cipro to oral. No obvious pyelonephritis on CT. No obstruction. Plan Anxiety: With improvement in liver function may benefit from SSRI. Constipation: bowel regimen, MiraLAX twice daily COPD: Possible minimal exacerbation. Breathing treatments, scheduled and as needed. Fall: 2 weeks ago tripped over her grandchild, fell on the edge of the bed hitting left side lower chest/flank. May be contributing to her pain. Headache: Reports 2 weeks ago headache in the back of her neck radiating up to the back of her head which had resolved. Currently no headache. IS. Known gastritis Liver cirrhosis Reports 2 prior episodes of pancreatitis GERD Other comorbidities. Attestations Medical Necessity Statement*: Continue admission for assessment of alcohol related gastritis, not tolerating oral intake, dehydration, slowly improving alcoholic hepatitis. Coding Level of Care Code Acute Pulp Mixer for g Fwd Diagnoses Nausea and vomiting R11.2 Gastritis K29.70 Alcoholic hepatitis K70.10 Pancytopenia D61.818 Abdominal pain R10.9 Macrocytic anemia D53.9 Hypokalemia E87.6 Hypomagnesemia E83.42 Dehydration E86.0 Elevated bilirubin R17 Tobacco dependency F17.200 Alcohol dependence F10.20 UTI (urinary tract infection) N39.0
[2022-01-19] MEDS: nicotine 21 mg Patch 1 PATCH TRANSDERMA (14:39)
[2022-01-19] MEDS: temazepam 15 mg Capsule PO (20:08)
[2022-01-20] VITALS (10 sets, daily range): BP systolic 90–102; BP diastolic 61–68; PULSE 82–93; RESP 15–18; TEMP 36.8–37; O2SAT 94–96
[2022-01-20] MEDS: ipratropium-albuterol 3 mL Neb INHALATION ×2 (03:02→08:11)
[2022-01-20] MEDS: ciprofloxacin 500 mg Tablet PO (04:10)
[2022-01-20 04:19] LABS: Basophils % 0.9 %; Eosinophils # 0.1 10^3/uL (0.0-0.8); Eosinophils % 3.2 %; Hematocrit 25.5 % (37.0-47.0); Hemoglobin 8.7 g/dL (11.5-15.3); Lymphocytes # 1.2 10^3/uL (0.8-4.8); Lymphocytes % 33.2 %; Mean Corpuscular HGB Conc 34.1 g/dL (30.0-36.0); Mean Corpuscular Hemoglobin 38.5 pg (28.0-34.0); Mean Corpuscular Volume 112.8 fl (81-99); Monocytes # 0.6 10^3/uL (0.2-0.9); Monocytes % 17.1 %; Neutrophils # 1.57 10^3/uL (1.8-7.7); Neutrophils % 45.3 %; Nucleated Red Blood Cells % 0 %; Platelet Count 94 10^3/cmm (130-400); Red Blood Count 2.26 10^6/uL (4.1-5.3); Red Cell Distribution Width 30.6 % (12.1-15.1); White Blood Count 3.5 10^3/uL (4.0-10.0)
[2022-01-20 04:34] LABS: Alanine Aminotransferase 42 U/L (0-33); Albumin Level 2.8 g/dL (3.5-5.2); Alkaline Phosphatase 169 U/L (35-105); Anion Gap 12.7 (5-19); Aspartate Amino Transferase 134 U/L (0-32); Blood Urea Nitrogen 4 mg/dL (6-20); Carbon Dioxide 23 mmol/L (22-29); Chloride 103 mmol/L (98-107); Globulin 3.7 g/dL (1.3-4.6); Glomerular Filtration Rate 129.1 mL/min (90-130); Glucose 97 mg/dL (65-115); Magnesium 1.4 mg/dL (1.7-2.3); Osmolality Calculated 277 mOsm/kg (285-295); Potassium 3.7 mmol/L (3.5-5.1); Sodium 135 mmol/L (136-145); Total Protein 6.5 g/dL (6.6-8.7)
[2022-01-20] MEDS: ondansetron 2 mg/ML SDV 2 mL 4 MG IVP (04:46)
[2022-01-20] MEDS: sodium chloride 0.9% 1,000 ML 30 ML IV (06:05)
[2022-01-20] MEDS: sucralfate 1 gm/10 mL Oral Liq UDC PO ×2 (06:05→11:48)
[2022-01-20] MEDS: multivitamin therapeutic Tablet 1 TAB PO (08:42)
[2022-01-20] MEDS: folic acid 1 mg Tablet PO (08:42)
[2022-01-20] MEDS: pantoprazole DR 40 mg Tablet PO (08:42)
[2022-01-20] MEDS: lidocaine 5% Patch 1 PATCH TOPICAL (08:44)
[2022-01-20] MEDS: polyethylene glycol 3350 Pkt 17 gm PO (08:44)
[2022-01-20] MEDS: thiamine 100 mg Tablet PO (08:44)
[2022-01-20] MEDS: magnesium sulfate premix 2 GM/50 ML PIGGYBACK IV (08:55)
--- NOTE | 2022-01-20 15:03 | PC.OT ---
OT Giulia Attempted x2 - Eval attempted this morning at 10:45with patient refusal stating that she had just got done with PT and didn't want to do anything else but would try later this day. Eval attempted again at 14:55 with patient refusal stating that she was told she was going home and that she wasn't doing anything except going home at this time. If patient is still here tomorrow, evaluation will be attempted.
[2022-01-20] MEDS: nicotine 21 mg Patch 1 PATCH TRANSDERMA (15:44)
--- NOTE | 2022-01-20 16:50 | P.DS_ITS ---
Discharge Providers Date of Admission: 01/15/22 15:46 Date of Discharge: January 20, 2022 Attending Provider at Admission: Rolando Villa Attending Provider at Discharge: Rolando Villa Primary Care Provider: Aditya Degroot DO Diagnoses at Discharge Discharge Diagnosis (1) Nausea and vomiting: Status: Acute (2) Gastritis: Status: Acute (3) Alcoholic hepatitis: Status: Acute (4) Pancytopenia: Status: Acute (5) Abdominal pain: Status: Acute (6) Macrocytic anemia: Status: Acute (7) Hypokalemia: Status: Acute (8) Hypomagnesemia: Status: Acute (9) Dehydration: Status: Acute (10) Elevated bilirubin: Status: Acute (11) Tobacco dependency: Status: Acute (12) Alcohol dependence: Status: Acute (13) UTI (urinary tract infection): Status: Acute Reason for Visit Reason for Visit: cp, back pain Hospital Course Hospital Course 51-year-old lady with history of alcohol use disorder, smoking addiction, history of pancreatitis, liver cirrhosis, GERD, recently with upper endoscopy, also from COPD, anxiety, chronic back pain, was admitted for assessment of management after presenting with nausea, vomiting, abdominal pain, upper abdomen, poor oral intake, has cut down on drinking. On presentation lipase was normal and pancreatitis not found on abdomen pelvis contrast CT study. Noted severe hepatomegaly. Alcohol-related hepatitis. Alcohol-related gastritis. During hospitalization also pancytopenia related to EtOH bone marrow suppression. Extrahepatic biliary duct dilation on CT was followed up with ultrasound which showed prior cholecystectomy, hepatomegaly with suspected fatty liver infiltration, no definitive focal abnormality. No CBD dilation. She has had protracted back pain which was imaged with lumbar spine showing osteoarthritis with multilevel intervertebral disc space narrowing in the lower dorsal and upper lumbar spine. As per multiple discussions with her and her life partner it appears that she self medicates with alcohol for pain, and also anxiety. During hospitalization she was monitored and treated for alcohol withdrawal. Alcohol-related hepatitis gradually slowly has been improving. She was treated with PPI, sucralfate for EtOH related gastritis. Initially not tolerating any food or drink, with nausea, vomiting. Still having epigastric discomfort, but now tolerates small amounts of food and drink. Yesterday had metaproterenol bradycardia. Today small amount of cream of wheat. Glucerna. Required repeat supplementation of magnesium and potassium during hospitalization. Blood counts have been gradually improving. Did require RBC transfusion at lowest hemoglobin coming down to 6.9. Currently hemoglobin up to 8.7. WBC 3.5, platelets 94,000. Blood pressure is also soft in the hospital with mild systolic symptoms, blood pressures have been improving. Instructed on orthostatic precautions. Was also assessed by PT, instructed on use of walker at home. Minimize risk of falls. Given home exercise program. Multiple discussions with her regarding EtOH cessation, difficulty of quitting especially in her situation where she uses it to self medicate. Discussed unfortunately opiates will not be the answer for her long-term back pain given propensity for dependence. Extensively discussed with her multimodal conservative management including lidocaine patch, Tylenol, capsaicin, heat or cold temperature. Please visit with her regarding options of weight loss which can also help her back pain. Despite the difficulties she has had quitting, she unfortunately declines rehabi litation. Discussing with her also regarding anxiety, will refer her also to behavioral health care follow-up. As per discussion with her with improving liver parameters starting buspirone, escitalopram. During hospitalization also completed treatment for UTI with ciprofloxacin with pansensitive E. coli growing on culture. Please resume follow-up regarding chronic problems including macrocytic anemia, cirrhosis. Assist with quitting smoking. Physical Exam Narrative: Life partner at bedside Const: COMMON NORMALS: patient oriented x3 and alert GENERAL APPEARANCE: cooperative and anxious ORIENTATION/CONSCIOUSNESS: Yes awake HENMT: COMMON NORMALS: oropharynx normal Neck/C-Spine: COMMON NORMALS: no JVD Resp: COMMON NORMALS: normal respiratory effort and clear to auscultation bilaterally AUSCULTATION: clear to auscultation bilaterally Cardio: COMMON NORMALS: no JVD, regular rhythm, S1 normal heart sound present, S2 normal heart sound present and No murmurs present (Cardio) RHYTHM: regular rhythm HEART SOUNDS: S1 normal heart sound present and S2 normal heart sound present GI: COMMON NORMALS: Normal to inspection, nondistended, normoactive bowel sounds present, Soft to palpation and non-tender PALPATION: Yes Soft to palpation and Yes Tenderness to palpation present (GI) (right side) Extremity: COMMON NORMALS: no joint enlargement and no pedal edema Neuro: COMMON NORMALS: patient oriented x3 and moves all extremities SENSORIUM/ORIENTATION: Yes alert Psych: MOOD & AFFECT: Yes tearful Skin: COMMON NORMALS: no rashes or lesions noted GENERAL SKIN EXAM: no rashes or lesions noted Discharge Data Studies Completed and Pending Completed Studies During Hospitalization Category Date Time Status CT abdomen pelvis w con* [id number] Stat Cat Scan 01/14/22 12:13 Completed CXRP [XR chest 1V portable [id number]] Stat Exams 01/14/22 09:00 Completed XR lumbar spine 2-3V* [id number] Routine Exams 01/15/22 12:12 Completed US gall bladder [id number] Routine Ultrasound 01/14/22 15:23 Completed Radiology Impressions Chest X-Ray 01/14/22 09:00 IMPRESSION: No acute cardiopulmonary abnormality. Abdomen/Pelvis CT 01/14/22 12:13 IMPRESSION: 1. Interval worsening of hepatomegaly/hepatic steatosis. 2. Stable extrahepatic biliary ductal dilatation. Gallbladder Ultrasound 01/14/22 15:23 IMPRESSION: 1. Prior cholecystectomy, no visible biliary tree dilation. 2. Hepatomegaly, with suspected fatty infiltration of the liver. 3. Other findings discussed above. Lumbar Spine X-Ray 01/15/22 12:12 IMPRESSION: 1. No acute bony abnormality. 2. Dextroscoliosis [place] angle 18 degrees. 3. Status post cholecystectomy Laboratory Results WBC 3.5 10^3/uL (4.0-10.0) L 01/20/22 04:00 RBC 2.26 10^6/uL (4.1-5.3) L 01/20/22 04:00 Hgb 8.7 g/dL (11.5-15.3) L 01/20/22 04:00 Hct 25.5 % (37.0-47.0) L 01/20/22 04:00 MCV 112.8 fl (81-99) H 01/20/22 04:00 MCH 38.5 pg (28.0-34.0) H 01/20/22 04:00 MCHC 34.1 g/dL (30.0-36.0) 01/20/22 04:00 RDW 30.6 % (12.1-15.1) H 01/20/22 04:00 Plt Count 94 10^3/cmm (130-400) L 01/20/22 04:00 MPV 11.0 fL (7.4-10.4) H 01/20/22 04:00 Neut % (Auto) 45.3 % 01/20/22 04:00 Lymph % (Auto) 33.2 % 01/20/22 04:00 [place] % (Auto) 17.1 % 01/20/22 04:00 Eos % (Auto) 3.2 % 01/20/22 04:00 Baso % (Auto) 0.9 % 01/20/22 04:00 Neut # (Auto) 1.57 10^3/uL (1.8-7.7) L 01/20/22 04:00 Lymph # (Auto) 1.2 10^3/uL (0.8-4.8) 01/20/22 04:00 [place] # (Auto) 0.6 10^3/uL (0.2-0.9) 01/20/22 04:00 Eos # (Auto) 0.1 10^3/uL (0.0-0.8) 01/20/22 04:00 Baso # (Auto) 0.0 10^3/uL (0.0-0.1) 01/20/22 04:00 Nucleated RBC % (auto) 0 % 01/20/22 04:00 Nucleated RBCs # 0.0 /100WBC 01/20/22 04:00 PT 15.40 SECONDS (12.1-14.9) H 01/14/22 09:40 INR 1.19 (0.8-1.2) 01/14/22 09:40 APTT 32.6 SECONDS (23.9-36.7) 01/14/22 09:40 Sodium 135 mmol/L (136-145) L 01/20/22 04:00 Potassium 3.7 mmol/L (3.5-5.1) 01/20/22 04:00 Chloride 103 mmol/L (98-107) 01/20/22 04:00 Carbon Dioxide 23 mmol/L (22-29) 01/20/22 04:00 Anion Gap 12.7 (5-19) 01/20/22 04:00 BUN 4 mg/dL (6-20) L 01/20/22 04:00 Creatinine 0.5 mg/dL (0.5-0.9) 01/20/22 04:00 GFR Calculation 129.1 mL/min (90-130) 01/20/22 04:00 Glucose 97 mg/dL (65-115) 01/20/22 04:00 Calculated Osmolality 277 mOsm/kg (285-295) L 01/20/22 04:00 Calcium 9.0 mg/dL (8.5-10.5) 01/20/22 04:00 Magnesium 1.4 mg/dL (1.7-2.3) L 01/20/22 04:00 Total Bilirubin 4.0 mg/dL (0.15-1.2) H 01/20/22 04:00 Direct Bilirubin 2.30 mg/dL (0.00-0.30) H 01/14/22 09:40 AST 134 U/L (0-32) H 01/20/22 04:00 ALT 42 U/L (0-33) H 01/20/22 04:00 Alkaline Phosphatase 169 U/L (35-105) H 01/20/22 04:00 CK-MB (CK-2) 1.0 ng/mL (0-5.34) 01/14/22 09:40 Troponin T Baseline 11 ng/L (0-10) H 01/14/22 09:40 Troponin T 120 Minute 9.83 ng/L (0-10) 01/14/22 11:40 Delta Troponin T -1.17 ABS# (0-10) L 01/14/22 11:40 Troponin T Hi Sens 6Hr 9.78 ng/L (0-10) 01/14/22 15:52 Troponin T Hi Sens 6Hr Delta -1.22 ng/L (0-12) L 01/14/22 15:52 Total Protein 6.5 g/dL (6.6-8.7) L 01/20/22 04:00 Albumin 2.8 g/dL (3.5-5.2) L 01/20/22 04:00 Globulin 3.7 g/dL (1.3-4.6) 01/20/22 04:00 Amylase 24 U/L (28-100) L 01/14/22 09:40 Lipase 31 U/L (13-60) 01/14/22 09:40 Urine Color [place] (Yellow) 01/14/22 14:30 Urine Appearance Clear (CLEAR) 01/14/22 14:30 Urine pH 6.5 (5-7) 01/14/22 14:30 Ur Specific [place] 1.005 (1.005-1.030) 01/14/22 14:30 Urine Protein 1+ (Negative) H 01/14/22 14:30 Urine Glucose (UA) Norm (Normal) 01/14/22 14:30 Urine Ketones 1+ (Negative) H 01/14/22 14:30 Urine Blood 2+ (Negative) H 01/14/22 14:30 Urine Nitrate Positive (Negative) H 01/14/22 14:30 Urine Bilirubin 2+ (Negative) H 01/14/22 14:30 Urine Urobilinogen 4+ mg/dL (Negative) H 01/14/22 14:30 Ur Leukocyte Esterase Trace (Negative) H 01/14/22 14:30 Urine RBC 0-4 /hpf (0-2) H 01/14/22 14:30 Urine WBC 0-4 /hpf (0-5) H 01/14/22 14:30 Ur Squamous Epith Cells 5-10 /hpf (0-5) H 01/14/22 14:30 Amorphous Sediment Not Reportable 01/14/22 14:30 Urine Bacteria 1+ /hpf (NONE) H 01/14/22 14:30 Urine Osmolality 152 mOsm/kg (50-1200) 01/16/22 00:11 Ur Random Sodium 12 mmol/L 01/16/22 00:11 Coronavirus 229E (PCR) Not detected (NOT DETECT) 01/14/22 16:55 Hepatitis A IgM Ab Non-reactive (Nonreactive) 01/15/22 05:04 Hep Bs Antigen Non-reactive (Nonreactive) 01/15/22 05:04 Hep B Core IgM Ab Non-reactive (Nonreactive) 01/15/22 05:04 Hepatitis C Antibody Non-reactive (Nonreactive) 01/15/22 05:04 Influenza Type A Ag Negative (Negative) 01/14/22 16:55 Influenza Type B Ag Negative (Negative) 01/14/22 16:55 SARS-CoV-2 (PCR) Not detected (NOT DETECT) 01/14/22 16:55 Blood Type A Positive 01/16/22 08:54 Rho(D) Type Positive 01/16/22 08:54 Antibody Screen Negative 01/16/22 08:54 Crossmatch See Detail 01/16/22 08:54 Vitals Last Vital Signs Temp 98.6 F 01/20/22 15:57 Pulse 86 01/20/22 15:57 Resp 15 01/20/22 15:57 BP 90/61 01/20/22 15:57 Pulse Ox 95 01/20/22 15:57 O2 Del Method 01/20/22 15:57 Discharge Plan Discharge Patient Disposition: Home Condition: Stable Prescriptions: New hydromorphone 4 mg Tablet 2 mg PO DAILY PRN (Reason: Severe Pain) Qty: 4 0RF nicotine 21 mg/24 hr Patch 24 Hour 1 patch transdermal Q24H Qty: 90 0RF multivitamin with folic acid [Thera] 400 mcg Tablet 1 tab PO DAILY Qty: 90 0RF polyethylene glycol 3350 17 gram Powder In Packet 17 g PO BID Qty: 90 0RF capsaicin 0.025 % Cream 1 applic topical QID PRN (Reason: Pain) Qty: 50 0RF buspirone 7.5 mg tablet 7.5 mg PO BID Qty: 180 0RF escitalopram oxalate 10 mg tablet 10 mg PO DAILY Qty: 30 3RF Slow-Mag 71.5 mg tablet,delayed release (DR/EC) 71.5 mg PO DAILY Qty: 90 0RF nicotine (polacrilex) 4 mg Lozenge 4 mg mucous membrane Q2H PRN (Reason: Nicotine Cravings) Qty: 90 3RF folic acid 1 mg Tablet 1 mg PO DAILY Qty: 90 0RF thiamine mononitrate (vit B1) [Vitamin B-1 (mononitrate)] 100 mg Tablet 100 mg PO DAILY Qty: 90 0RF lidocaine 5 % Adhesive Patch,Medicated 1 patch topical [id number] Qty: 14 0RF sucralfate 1 gram tablet 1 g PO AC&BEDTIME Qty: 56 0RF Continued omeprazole 40 mg capsule,delayed release(DR/EC) 40 mg PO BID Discontinued ciprofloxacin HCl 500 mg tablet 500 mg PO Q12H Rx Instructions: x 7 days Discharge Orders: Discharge Order (Routine); Ordered 01/20/22 Ordered By: Rolando Villa Referrals: MALDONAD[facility] [Other] - 4-7 days [facility] [Other] [facility] [Other] (Call this number to see if you qualify for in home services. ) [facility] [Provider Group] (TRUDY, Etoh dependence) Discharge Diet: Advance as tolerated and Full LIquid Discharge Activity: Increase activity as tolerated Patient Instructions: Gastritis (GEN), Constipation (GEN), Urinary Tract Infection in Women (GEN), Potassium Content of Foods List (GEN), Mood Disorders (GEN), Generalized Anxiety Disorder (GEN), Hypomagnesemia (GEN), Fall Prevention (GEN), Alcohol Dependence (GEN), Alcoholic Hepatitis (GEN), Pancytopenia (GEN), Opioid Safety Activity Restrictions/Additional Instructions: Always rise slowly from laying to sitting and sitting to standing. If you get lightheaded sit down or lie down immediately until you feel better before resuming your activity. Follow-up with your primary doctor for reassessment of alcohol-related hepatitis which has been improving, alcohol induced gastritis. Avoid any alcohol. Further alcohol consumption will worsen the condition of the liver leading to severe irreversible disease, worsening gastritis, recurrence of pancreatitis, but also development of dementia and other complications. Seek rehabilitation to help you quit. Continue thiamine, folic acid, multivitamin due to risk of dementia. Avoid continuation of long-term opioids due to risk of dependence and other risks. Follow-up with your primary doctor with regards to chronic back pain. Continue combination of conservative measures for back pain including lidocaine patch, heat or cooling pack, capsaicin, Bengay/menthol cream, gentle massage, light activity and Tylenol. Discussed with your primary doctor options to help you lose weight. Weight loss can help with back pain. Stop smoking. Continued smoking will lead to progression of lung disease/COPD, and puts you at risk of heart attack, stroke, cancer and other complications. Avoid any NSAIDs like ibuprofen, Aleve, etc. Follow-up with behavioral health care with regards to anxiety. Continue magnesium supplementation, add potassium rich foods. Have your primary doctor reassess your magnesium and potassium levels. Have your primary doctor reassess your blood counts to reassess pancytopenia (all blood counts low). Avoid any alcohol. Drinking additional alcohol will lead to worsening pancytopenia, anemia, risk of bleeding, risk of infections and other risks. Up with your primary doctor regarding liver cirrhosis, seek referral to hepatology for follow-up. Maintain regular follow-up related to cirrhosis. Discharge Attestations Time Spent in Discharge Care*: greater than 30 min Status at Discharge: Cognitive status at discharge: cognitively intact , Behavioral status at discharge: cooperative , Quality Metrics Clinical Quality Measures [ No reported AMI, CVA or VTE this stay] Coding Level of Care Code Acute Chg FW DC note Diagnoses Nausea and vomiting R11.2 Gastritis K29.70 Alcoholic hepatitis K70.10 Pancytopenia D61.818 Abdominal pain R10.9 Macrocytic anemia D53.9 Hypokalemia E87.6 Hypomagnesemia E83.42 Dehydration E86.0 Elevated bilirubin R17 Tobacco dependency F17.200 Alcohol dependence F10.20 UTI (urinary tract infection) N39.0
== END 2022-01-20 17:31 | disposition home or self-care (01) | DRG 392 ==
LOC: ER 13:49 → MEDSURG 14:08 → MS 2A 14:31 → MEDSURG 14:32
PROVIDERS: Nurse Practitioner Family; Admitting Provider Internal Medicine; Emergency Provider Emergency Medicine; PCP Family Medicine; Visit Provider Internal Medicine
DX: K29.20 Alcoholic gastritis without bleeding (principal); D61.818 Other pancytopenia; N39.0 Urinary tract infection, site not specified; F10.20 Alcohol dependence, uncomplicated; K70.30 Alcoholic cirrhosis of liver without ascites; K70.10 Alcoholic hepatitis without ascites; T39.395A Adverse effect of other nonsteroidal anti-inflammatory drugs [NSAID], initial encounter; K29.70 Gastritis, unspecified, without bleeding; D53.9 Nutritional anemia, unspecified; E87.6 Hypokalemia; E83.42 Hypomagnesemia; E86.0 Dehydration; F17.200 Nicotine dependence, unspecified, uncomplicated; K21.9 Gastro-esophageal reflux disease without esophagitis; J44.9 Chronic obstructive pulmonary disease, unspecified; F41.9 Anxiety disorder, unspecified; G89.29 Other chronic pain; M47.9 Spondylosis, unspecified; K59.00 Constipation, unspecified
CPT/HCPCS: 36415; 36430; 71045; 72100; 74177; 76705; 80048; 80053; 80074; 81001; 82150; 82248; 82553; 83690; 83735; 83935; 84132; 84300; 84484; 85018; 85025; 85610; 85730; 86850; 86900; 86920; 87077; 87086; 87186; 87635; 87804; 93005; 94640; 96365; 96366; 96367; 96372; 96375; 97161; 97530; 99285; C9113; G0378; J0744; J2060; J2270; J2405; J3010; J3411; J3475; J3480; J3490; J7030; J7120; P9016; Q9967

== ENCOUNTER 2022-02-11 08:07 | Emergency (ER) | payer MEDICAID, SELFPAY ==
--- NOTE | 2022-02-11 08:10 | ECG_ITS ---
[facility] Test Date: 2022-02-11 Pat Name: Melissa Portillo Department: Room: Gender: Female Diagnostic Radiologic Technologist: : 1970 Requested By: Robbin Elizondo Order Number: [id number] Liz MD: Dena Thomas M.D. Measurements Intervals [place] Rate: 115 P: 0 NE: 0 QRS: 72 QRSD: 82 T: 50 QT: 323 QTc: 448 Interpretive Statements Sinus tachycardia with PACs Heavy Baseline artifact MODERATE ST DEPRESSION [0.05+ mV ST DEPRESSION] Compared to ECG 01/14/2022 11:38:36 Sinus tachycardia no longer present ST (T wave) deviation still present Electronically Signed On 02-11-2022 15:22:25 [employer] by Dena Thomas M.D. [email or web address]
[2022-02-11 08:18] VITALS: BP 144/101; PULSE 117; RESP 20; TEMP 36.5; O2SAT 100
--- NOTE | 2022-02-11 08:21 | CTR_ITS ---
PROCEDURE INFORMATION: Exam: CT Abdomen And Pelvis With Contrast Exam date and time: 02/11/2022 9:19 AM Age: 51 years old Clinical indication: Abdominal pain; Generalized; Prior surgery; Surgery type: Gb; Additional info: Abd pain TECHNIQUE: Imaging protocol: Computed tomography of the abdomen and pelvis with contrast. Radiation optimization: All CT scans at this facility use at least one of these dose optimization techniques: automated exposure control; mA and/or kV adjustment per patient size (includes targeted exams where dose is matched to clinical indication); or iterative reconstruction. Contrast material: OMNI 350; Contrast volume: 100 ml; Contrast route: INTRAVENOUS (IV); COMPARISON: CT abdomen pelvis w con* [id number] 01/14/2022 12:43 PM RADIATION DOSE METRICS: Total DLP (mGy-cm): 669.82 FINDINGS: Liver: There is a diffuse decrease in hepatic parenchymal density, consistent with fatty infiltration. Liver is enlarged for size. Gallbladder and bile ducts: The gallbladder is surgically absent. The common bile duct is dilated measuring up to 1.4 cm in diameter, similar to prior exam likely related to post cholecystectomy changes. No significant intrahepatic biliary dilatation identified. Pancreas: The pancreas appears normal. Spleen: The spleen appears normal. Adrenal glands: The adrenals appear normal. Kidneys and ureters: The kidneys enhance symmetrically and empty into non-dilated ureters. Stomach and bowel: Postsurgical changes at the rectosigmoid junction. Appendix: No signs of appendicitis. Intraperitoneal space: No ascites or significant fluid collection. Vasculature: The aorta is nonaneurysmal. The IVC appears normal. Lymph nodes: There are no enlarged lymph nodes. Urinary bladder: The bladder is distended and demonstrates no focal contour abnormality. Reproductive: The uterus is surgically absent. Bones/joints: Unremarkable. Soft tissues: Unremarkable. CT/CT abdomen pelvis w con* [id number] IMPRESSION: 1. No acute abdominopelvic abnormality identified. 2. Hepatomegaly with hepatic steatosis, similar to prior exam.
--- NOTE | 2022-02-11 08:24 | W.ED.CHESTPA ---
HPI - Chest Pain General: Chief Complaint: Chest Pain Stated Complaint: Chest Pain, back and stomach pains Time Seen by Provider: 02/11/22 08:10 Source: patient Mode of arrival: ambulatory History of Present Illness: 51-year-old female with a long history of alcoholism presents to the emergency room complaining of epigastric left upper quadrant pain rating to her chest and down into her abdomen began yesterday. Earlier this month he was hospitalized for 6 days for alcoholic gastritis. She has had pancreatitis in the past as well. Most recent hospitalization reviewed. She denies any medication on hematemesis or coffee-ground emesis recently she was drinking up until yesterday when her stomach was giving so much trouble she could no longer ingest any alcohol. Onset (ago): hour(s) Timing of current episode: constant Prior episodes: Yes Severity: severe Quality: sharp Relieving factors: nothing Exacerbating factors: nothing Associated symptoms: Reports abdominal pain, nausea and vomiting; Deny diaphoresis, dyspnea, fever(s), leg edema, palpitations, sense of impending doom or syncope Treatment prior to arrival: none Review of Systems Const: Denies: fever(s), chills or diaphoresis ENMT: Denies: throat pain, ear or mastoid pain, nasal discharge or nasal congestion Card: Reports: chest pain; Denies: palpitations or syncope Resp: Denies: dyspnea GI: Reports: abdominal pain, nausea, vomiting and GI cramping; Denies: hematemesis or coffee ground emesis : Denies: flank pain, difficulty voiding, dysuria, urinary frequency or urinary urgency Skin/Breast: Denies: rash or pruritus PFSH ED PFSH: Medical History Abdominal pain Acute dehydration Alcohol withdrawal Alcoholic ketoacidosis Alcoholism Anemia Anxiety Carpal tunnel syndrome Chronic back pain Chronic pancreatitis Cirrhosis Enteritis GERD (gastroesophageal reflux disease) H. pylori infection Hepatitis A Hypokalemia Intractable nausea and vomiting Intractable nausea and vomiting Sciatica Tobacco dependency Surgical History H/O rotator cuff surgery H/O: hysterectomy History of appendectomy History of cholecystectomy Family History Denies family history of Diabetes CAD (coronary artery disease) Dementia Social History (Updated 02/11/22 @ 08:26 by Robbin Brown DO) Smoking and tobacco status: current every day smoker Alcohol intake: current Alcohol intake frequency: 3 or more drinks per day Alcohol type: hard liquor Desire information about alcohol rehabilitation?: No Current occupation: On disability Physical Exam Const: GENERAL APPEARANCE: cooperative and comfortable ORIENTATION/CONSCIOUSNESS: Yes awake, Yes oriented to person, Yes oriented to place and Yes oriented to time HENMT: COMMON NORMALS: normocephalic, atraumatic, hearing grossly normal bilaterally, external ears normal, EAC's normal, TM's normal bilaterally, Normal nasal mucous membranes and turbinates present, moist oral mucous membranes and oropharynx normal HEAD & SCALP: normocephalic and atraumatic NOSE: Normal nasal mucous membranes and turbinates present EXTERNAL EAR: Yes external ears normal EXTERNAL AUDITORY CANAL: EAC's normal TYMPANIC MEMBRANE: TM's normal bilaterally Eye: COMMON NORMALS: Equal, round and reactive pupils present, EOMs intact bilaterally, conjunctivae normal and no scleral icterus CONJUNCTIVA: Yes conjunctivae normal PUPIL: Yes Equal, round and reactive pupils present Neck/C-Spine: COMMON NORMALS: full ROM, no lymphadenopathy, supple and no JVD Lymph: LYMPHATIC: no lymphadenopathy noted and no lymphedema noted Resp: COMMON NORMALS: normal respiratory effort, No retractions, No use of accessory muscles and clear to auscultation bilaterally AUSCULTATION: clear to auscultation bilaterally Cardio: COMMON NORMALS: no JVD, regular rate, regular rhythm and No murmurs present (Cardio) RATE: regular rate RHYTHM: regular rhythm GI: AUSCULTATION: Yes normoactive bowel sounds PALPATION: Yes Tenderness to palpation present (GI) (Epigastric left upper quadrant) and No Guarding due to palpation present (GI) Extremity: COMMON NORMALS: normal to inspection, capillary refill normal, no clubbing, cyanosis or edema, no calf tenderness and no pedal edema Neuro: SENSORIUM/ORIENTATION: Yes oriented to person, Yes oriented to place and Yes oriented to time Skin: COMMON NORMALS: no rashes or lesions noted GENERAL SKIN EXAM: no rashes or lesions noted Course Vital Signs: Vital signs: Vital Signs Temperature 97.7 F 02/11/22 08:18 Pulse Rate 102 H 02/11/22 09:32 Respiratory Rate 16 02/11/22 09:32 Blood Pressure 144/101 02/11/22 09:32 Pulse Oximetry 99 02/11/22 09:32 Oxygen Delivery Me thod 02/11/22 09:32 MDM - Chest Pain Medical Decision Making Alcoholic gastritis with no evidence of bleeding no pancreatitis. Recommend she abstain from alcohol gave her tapering dose of Librium Carafate and Protonix. Instructed patient not to take the Protonix within 1 hour of taking a Carafate. Additionally gave her Zofran to use for nausea. Strongly encouraged her to abstain from alcohol use treatment programs such as [facility] for similar and obtaining ankle. Return if is any further problems or has any hematemesis or coffee-ground emesis hematochezia or melena discussed with patient as well. Medical Records I reviewed the patient's medical records. Lab Data I reviewed the patient's lab results. 02/11/22 08:53 02/11/22 08:53 Radiology Impressions Abdomen/Pelvis CT 02/11/22 08:21 IMPRESSION: 1. No acute abdominopelvic abnormality identified. 2. Hepatomegaly with hepatic steatosis, similar to prior exam. Laboratory Results WBC 5.7 10^3/uL (4.0-10.0) 02/11/22 08:53 RBC 3.38 10^6/uL (4.1-5.3) L 02/11/22 08:53 Hgb 13.1 g/dL (11.5-15.3) 02/11/22 08:53 Hct 37.8 % (37.0-47.0) 02/11/22 08:53 MCV 111.8 fl (81-99) H 02/11/22 08:53 MCH 38.8 pg (28.0-34.0) H 02/11/22 08:53 MCHC 34.7 g/dL (30.0-36.0) 02/11/22 08:53 RDW 16.9 % (12.1-15.1) H 02/11/22 08:53 Plt Count 126 10^3/cmm (130-400) L 02/11/22 08:53 MPV 11.6 fL (7.4-10.4) H 02/11/22 08:53 Neut % (Auto) 71.8 % 02/11/22 08:53 Lymph % (Auto) 20.4 % 02/11/22 08:53 [place] % (Auto) 5.8 % 02/11/22 08:53 Eos % (Auto) 1.0 % 02/11/22 08:53 Baso % (Auto) 0.7 % 02/11/22 08:53 Neut # (Auto) 4.11 10^3/uL (1.8-7.7) 02/11/22 08:53 Lymph # (Auto) 1.2 10^3/uL (0.8-4.8) 02/11/22 08:53 [place] # (Auto) 0.3 10^3/uL (0.2-0.9) 02/11/22 08:53 Eos # (Auto) 0.1 10^3/uL (0.0-0.8) 02/11/22 08:53 Baso # (Auto) 0.0 10^3/uL (0.0-0.1) 02/11/22 08:53 Nucleated RBC % (auto) 0 % 02/11/22 08:53 Nucleated RBCs # 0.0 /100WBC 02/11/22 08:53 Sodium 138 mmol/L (136-145) 02/11/22 08:53 Potassium 3.3 mmol/L (3.5-5.1) L 02/11/22 08:53 Chloride 99 mmol/L (98-107) 02/11/22 08:53 Carbon Dioxide 22 mmol/L (22-29) 02/11/22 08:53 Anion Gap 20.3 (5-19) H 02/11/22 08:53 BUN 9 mg/dL (6-20) 02/11/22 08:53 Creatinine 0.5 mg/dL (0.5-0.9) 02/11/22 08:53 GFR Calculation 129.1 mL/min (90-130) 02/11/22 08:53 Glucose 86 mg/dL (65-115) 02/11/22 08:53 Calculated Osmolality 284 mOsm/kg (285-295) L 02/11/22 08:53 Calcium 9.4 mg/dL (8.5-10.5) 02/11/22 08:53 Magnesium 1.4 mg/dL (1.7-2.3) L 02/11/22 08:53 Total Bilirubin 2.8 mg/dL (0.15-1.2) H 02/11/22 08:53 AST 216 U/L (0-32) H 02/11/22 08:53 ALT 50 U/L (0-33) H 02/11/22 08:53 Alkaline Phosphatase 228 U/L (35-105) H 02/11/22 08:53 Total Protein 9.6 g/dL (6.6-8.7) H 02/11/22 08:53 Albumin 4.2 g/dL (3.5-5.2) 02/11/22 08:53 Globulin 5.4 g/dL (1.3-4.6) H 02/11/22 08:53 Lipase 38 U/L (13-60) 02/11/22 08:53 Ethyl Alcohol < 10 mg/dL (0-10) 02/11/22 08:53 Discharge Plan Discharge Patient Disposition: Home Clinical Impression: Alcoholic gastritis, Alcohol dependence Prescriptions: New ondansetron HCl 4 mg tablet 4 mg PO Q6H PRN (Reason: nausea and vomiting) Qty: 20 0RF Carafate 1 gram tablet 1 g PO Q6H 28 Days Qty: 112 0RF Protonix 40 mg tablet,delayed release (DR/EC) 40 mg PO DAILY 56 Days Qty: 60 0RF Rx Instructions: Do not take more than 1 hour of Carafate chlordiazepoxide HCl 25 mg capsule 25 mg PO BID Qty: 20 0RF Rx Instructions: 1 p.o. 4 times daily x3 days then 1 p.o. 3 times daily x2 days then 1 p.o. daily x2 days No Action omeprazole 40 mg capsule,delayed release(DR/EC) 40 mg PO BID capsaicin 0.025 % Cream 1 applic topical QID PRN (Reason: Pain) Qty: 50 0RF polyethylene glycol 3350 17 gram Powder In Packet 17 g PO BID Qty: 90 0RF lidocaine 5 % Adhesive Patch,Medicated 1 patch topical [id number] Qty: 14 0RF nicotine 21 mg/24 hr Patch 24 Hour 1 patch transdermal Q24H Qty: 90 0RF folic acid 1 mg Tablet 1 mg PO DAILY Qty: 90 0RF hydromorphone 4 mg Tablet 2 mg PO DAILY PRN (Reason: Severe Pain) Qty: 4 0RF nicotine (polacrilex) 4 mg Lozenge 4 mg mucous membrane Q2H PRN (Reason: Nicotine Cravings) Qty: 90 3RF Thera 400 mcg Tablet 1 tab PO DAILY Qty: 90 0RF sucralfate 1 gram tablet 1 g PO AC&BEDTIME Qty: 56 0RF Vitamin B-1 (mononitrate) 100 mg Tablet 100 mg PO DAILY Qty: 90 0RF buspirone 7.5 mg tablet 7.5 mg PO BID Qty: 180 0RF escitalopram oxalate 10 mg tablet 10 mg PO DAILY Qty: 30 3RF Slow-Mag 71.5 mg tablet,delayed release (DR/EC) 71.5 mg PO DAILY Qty: 90 0RF Discharge Orders: Discharge ED (Routine); Ordered 02/11/22 Ordered By: Robbin Brown Referrals: Aditya Degroot, [Primary Care Provider] - Discharge Diet: Usual diet Discharge Activity: Resume usual activity Patient Instructions: Alcoholism, Alcohol Use Disorder (ED), Alcoholic Hepatitis (ED), Opioid Safety, Pain Management Activity Restrictions/Additional Instructions: You were seen today for alcoholic gastritis. Your stomach is highly inflamed due to chronic alcohol use. Recommend you abstain from alcohol strongly recommend you consider assistance in that goal by making use of alcoholics anonymous meetings, outpatient treatment centers such as [facility], or other similar facilities. For your current symptoms recommend that you use Carafate 4 times daily as well as Prilosec once daily do not take Prilosec within 1 hour of taking the Carafate. Use a tapering dose of Librium to help abstain from alcohol. Follow-up with your primary care doctor or with [facility]. Coding Level of Care Code ED Bariatric Coordinator for Shila Fwd Exam Comprehensive
[2022-02-11] MEDS: sodium chloride 0.9% 1,000 ML 999 ML IV (08:35)
[2022-02-11] MEDS: ondansetron 2 mg/ML SDV 2 mL 4 MG IVP (08:36)
[2022-02-11] MEDS: multivitamin therapeutic Tablet 1 TAB PO (08:43)
[2022-02-11] MEDS: morphine 4 mg/mL SDV 1 mL IVP (08:43)
[2022-02-11] MEDS: LORazepam 2 mg/mL INJ 1 mL IVP (08:43)
[2022-02-11] MEDS: folic acid 1 mg Tablet PO (08:44)
[2022-02-11] MEDS: thiamine 100 mg Tablet PO (08:44)
[2022-02-11] MEDS: folic acid 1 MG, multivitamin inj 10 ML, thiamine 100 MG in sodium chloride 0.9% 1,000 ML 252.8 MG IV (08:55)
[2022-02-11 08:57] VITALS: BP 144/101; PULSE 107; RESP 16; O2SAT 95
[2022-02-11 09:02] LABS: Basophils % 0.7 %; Eosinophils # 0.1 10^3/uL (0.0-0.8); Hematocrit 37.8 % (37.0-47.0); Hemoglobin 13.1 g/dL (11.5-15.3); Lymphocytes # 1.2 10^3/uL (0.8-4.8); Lymphocytes % 20.4 %; Mean Corpuscular HGB Conc 34.7 g/dL (30.0-36.0); Mean Corpuscular Hemoglobin 38.8 pg (28.0-34.0); Mean Corpuscular Volume 111.8 fl (81-99); Mean Platelet Volume 11.6 fL (7.4-10.4); Monocytes # 0.3 10^3/uL (0.2-0.9); Monocytes % 5.8 %; Neutrophils # 4.11 10^3/uL (1.8-7.7); Neutrophils % 71.8 %; Nucleated Red Blood Cells % 0 %; Platelet Count 126 10^3/cmm (130-400); Red Blood Count 3.38 10^6/uL (4.1-5.3); Red Cell Distribution Width 16.9 % (12.1-15.1); White Blood Count 5.7 10^3/uL (4.0-10.0)
[2022-02-11 09:19] LABS: Alanine Aminotransferase 50 U/L (0-33); Albumin Level 4.2 g/dL (3.5-5.2); Alkaline Phosphatase 228 U/L (35-105); Anion Gap 20.3 (5-19); Aspartate Amino Transferase 216 U/L (0-32); Blood Urea Nitrogen 9 mg/dL (6-20); Calcium 9.4 mg/dL (8.5-10.5); Carbon Dioxide 22 mmol/L (22-29); Chloride 99 mmol/L (98-107); Globulin 5.4 g/dL (1.3-4.6); Glomerular Filtration Rate 129.1 mL/min (90-130); Glucose 86 mg/dL (65-115); Lipase 38 U/L (13-60); Magnesium 1.4 mg/dL (1.7-2.3); Osmolality Calculated 284 mOsm/kg (285-295); Potassium 3.3 mmol/L (3.5-5.1); Sodium 138 mmol/L (136-145); Total Bilirubin 2.8 mg/dL (0.15-1.2); Total Protein 9.6 g/dL (6.6-8.7)
[2022-02-11 09:20] LABS: Alcohol Level < 10 mg/dL (0-10)
[2022-02-11] MEDS: iohexol 350 mg/mL 500 mL Btl (per mL) IV (09:25)
[2022-02-11 09:32] VITALS: BP 144/101; PULSE 102; RESP 16; O2SAT 99
[2022-02-11] MEDS: pantoprazole 40 mg SDV IVP (09:39)
[2022-02-11] MEDS: lidocaine 2% viscous 15 ML, aluminum-mag hydrox-simethicon 30 ML, sucralfate oral liq 1 GM PO (09:39)
[2022-02-11 11:15] VITALS: BP 144/101; PULSE 102; RESP 16; O2SAT 99
== END 2022-02-11 11:19 | disposition home or self-care (01) ==
PROVIDERS: Emergency Provider Family Medicine; PCP Family Medicine
DX: K29.20 Alcoholic gastritis without bleeding (principal); F10.20 Alcohol dependence, uncomplicated; F17.210 Nicotine dependence, cigarettes, uncomplicated
CPT/HCPCS: 74177; 80053; 80307; 83690; 83735; 85025; 93005; 96361; 96372; 96374; 96375; 99285; C9113; J2060; J2270; J2405; J3411; J3490; J7030; Q9967

== ENCOUNTER 2022-02-26 11:04 | Inpatient (IN) | payer MEDICAID, SELFPAY ==
[2022-02-26] VITALS (9 sets, daily range): BP systolic 111–150; BP diastolic 70–127; PULSE 83–119; RESP 16–20; TEMP 36.4–37.3; O2SAT 93–100
--- NOTE | 2022-02-26 11:21 | XRR_ITS ---
PROCEDURE INFORMATION: Exam: XR Abdomen Exam date and time: 02/26/2022 12:07 PM Age: 51 years old Clinical indication: Abdominal pain; Additional info: Abd pain; N/v TECHNIQUE: Imaging protocol: Radiologic exam of the abdomen. Views: Frontal supine view of the abdomen. 1 View. COMPARISON: CT abdomen pelvis w con* [id number] 02/11/2022 9:19 AM FINDINGS: Gastrointestinal tract: Large amount of stool throughout the colon likely reflecting some degree of constipation. No evidence of bowel obstruction. Organs: Liver appears enlarged. Bones/joints: Unremarkable. Other findings: No suspicious calcifications. XR/XR KUB portable [id number] IMPRESSION: Probable constipation otherwise negative abdomen.
--- NOTE | 2022-02-26 11:23 | ED_ITS ---
HPI - Abdominal Pain General: Chief Complaint: Abdominal Pain Stated Complaint: N/V chest pains Time Seen by Provider: 02/26/22 11:16 Source: patient and family Mode of arrival: ambulatory Limitations: no limitations History of Present Illness: See nursing assessment. Patient with complaints of epigastric pain, nausea and vomiting, constipation for the past 2 weeks. Patient states she is an alcoholic and drinks every day. She states she already had couple ounces of alcohol this morning. She states it hurts to eat. She denies any melena or GI bleed. Patient seen in the ER for similar problems couple weeks ago. See ER visit history. See EGD report on 12/09/2021 showing gastritis only. Patient denies any fever. She states pain is similar to what she has had with previous pancreatitis. Associated Symptoms: Reports constipation, dysuria, nausea and vomiting; Denies chills, diarrhea, fever(s), hematochezia, hematuria and melena Review of Systems Const: Denies: fever(s) or chills Eyes: Denies: change in vision ENMT: Denies: throat pain Card: Denies: chest pain or palpitations Resp: Denies: dyspnea or wheezing GI: Reports: abdominal pain, nausea, vomiting and constipation; Denies: diarrhea, hematochezia or melena : Reports: dysuria; Denies: flank pain or hematuria Musc: Denies: neck pain or back pain Skin/Breast: Denies: rash or pruritus Neuro: Denies: headache(s) or numbness in extremities Psych: Reports: anxiety Eric/Lymph: Denies: enlarged lymph nodes PFSH ED PFSH: Medical History Abdominal pain Acute dehydration Alcohol withdrawal Alcoholic ketoacidosis Alcoholism Anemia Anxiety Carpal tunnel syndrome Chronic back pain Chronic pancreatitis Cirrhosis Enteritis GERD (gastroesophageal reflux disease) H. pylori infection Hepatitis A Hypokalemia Intractable nausea and vomiting Intractable nausea and vomiting Sciatica Tobacco dependency Surgical History H/O rotator cuff surgery H/O: hysterectomy History of appendectomy History of cholecystectomy Family History Denies family history of Diabetes CAD (coronary artery disease) Dementia Social History Smoking and tobacco status: current every day smoker Alcohol intake: current Alcohol intake frequency: 3 or more drinks per day [place] type: hard liquor Desire information about alcohol rehabilitation?: No Current occupation: On disability Physical Exam Const: COMMON NORMALS: patient oriented x3, no limitations and well nourished GENERAL APPEARANCE: cooperative OTHER: Moderate discomfort due to epigastric Dayday pain and nausea. HENMT: COMMON NORMALS: normocephalic and atraumatic HEAD & SCALP: nor mocephalic and atraumatic FACE & SINUS: normal facial exam Eye: COMMON NORMALS: EOMs intact bilaterally Neck/C-Spine: COMMON NORMALS: full ROM, no lymphadenopathy, supple and no meningeal signs GENERAL: Yes normal visual inspection Lymph: LYMPHATIC: no lymphadenopathy noted Chest: COMMONS NORMALS: normal inspection of the chest and normal palpation of entire chest wall CHEST: No Ecchymosis present and No rash Resp: COMMON NORMALS: normal respiratory effort, No retractions and clear to auscultation bilaterally EFFORT & INSPECTION: No respiratory distress AUSCULTATION: clear to auscultation bilaterally Cardio: COMMON NORMALS: regular rate, regular rhythm and Peripheral pulses 2+ throughout JUGULAR VENOUS DISTENTION: no JVD RATE: regular rate RHYTHM: regular rhythm PERIPHERAL PULSES: Peripheral pulses 2+ throughout GI: OTHER: Normoactive bowel sounds. Patient has moderate epigastric abdominal pain. No past splenomegaly. No masses palpated. : COMMON NORMALS: Yes no CVA tenderness BLADDER/KIDNEY EXAM: Yes no CVA tenderness Back/Pelvis: COMMON NORMALS: no CVA tenderness Extremity: COMMON NORMALS: normal to inspection, full ROM and capillary refill normal Neuro: COMMON NORMALS: patient oriented x3, CN's II-XII intact bilaterally, no focal motor deficits and no sensory deficits noted MENINGEAL SIGNS: Yes no meningeal signs Psych: COMMON NORMALS: Normal thought process present THOUGHT PROCESS: Normal thought process present OTHER: Patient is anxious and hyperventilating. Skin: COMMON NORMALS: no rashes or lesions noted and no wounds GENERAL SKIN EXAM: no rashes or lesions noted Course Vital Signs: Vital signs: Vital Signs Temperature 99.2 F 02/26/22 11:12 Pulse Rate 83 02/26/22 15:01 Respiratory Rate 20 H 02/26/22 15:01 Blood Pressure 124/87 02/26/22 15:01 Pulse Oximetry 93 02/26/22 15:01 Oxygen Delivery Me thod 02/26/22 15:01 MDM - Abdominal Pain Medical Decision Making Possible alcoholic pancreatitis versus gastritis. Nausea vomiting. Acute anxiety 1252: Patient reexamined. Patient still very anxious. Will give IV Ativan. 1530: Discussed with Dr. Galdamez hospitalist. He will [facility] patient [facility]. Patient with continued abdominal pain and nausea. She denies history of DTs. Lab Data 02/26/22 11:58 02/26/22 11:58 Labs/Radiology: Radiology Impressions KUB X-Ray 02/26/22 11:21 IMPRESSION: Probable constipation otherwise negative abdomen. Abdomen/Pelvis CT 02/26/22 12:51 IMPRESSION: 1. No acute findings within the abdomen or pelvis. 2. Hepatomegaly with marked fatty infiltration. 3. Prior cholecystectomy with stable dilatation of the common bile duct. 4. No evidence of acute pancreatitis. 5. Minimal bronchiolitis left lung base. Laboratory Results WBC 8.3 10^3/uL (4.0-10.0) 02/26/22 11:58 RBC 3.09 10^6/uL (4.1-5.3) L 02/26/22 11:58 Hgb 12.2 g/dL (11.5-15.3) 02/26/22 11:58 Hct 34.4 % (37.0-47.0) L 02/26/22 11:58 MCV 111.3 fl (81-99) H 02/26/22 11:58 MCH 39.5 pg (28.0-34.0) H 02/26/22 11:58 MCHC 35.5 g/dL (30.0-36.0) 02/26/22 11:58 RDW 16.3 % (12.1-15.1) H 02/26/22 11:58 Plt Count 126 10^3/cmm (130-400) L 02/26/22 11:58 MPV 10.6 fL (7.4-10.4) H 02/26/22 11:58 Neut % (Auto) 79.5 % 02/26/22 11:58 Lymph % (Auto) 12.7 % 02/26/22 11:58 [place] % (Auto) 6.3 % 02/26/22 11:58 Eos % (Auto) 0.5 % 02/26/22 11:58 Baso % (Auto) 0.8 % 02/26/22 11:58 Neut # (Auto) 6.60 10^3/uL (1.8-7.7) 02/26/22 11:58 Lymph # (Auto) 1.1 10^3/uL (0.8-4.8) 02/26/22 11:58 [place] # (Auto) 0.5 10^3/uL (0.2-0.9) 02/26/22 11:58 Eos # (Auto) 0.0 10^3/uL (0.0-0.8) 02/26/22 11:58 Baso # (Auto) 0.1 10^3/uL (0.0-0.1) 02/26/22 11:58 Nucleated RBC % (auto) 0 % 02/26/22 11:58 Nucleated RBCs # 0.0 /100WBC 02/26/22 11:58 Sodium 138 mmol/L (136-145) 02/26/22 11:58 Potassium 2.7 mmol/L (3.5-5.1) L* 02/26/22 11:58 Chloride 99 mmol/L (98-107) 02/26/22 11:58 Carbon Dioxide 20 mmol/L (22-29) L 02/26/22 11:58 Anion Gap 21.7 (5-19) H 02/26/22 11:58 BUN 6 mg/dL (6-20) 02/26/22 11:58 Creatinine 0.5 mg/dL (0.5-0.9) 02/26/22 11:58 GFR Calculation 129.1 mL/min (90-130) 02/26/22 11:58 Glucose 104 mg/dL (65-115) 02/26/22 11:58 Calculated Osmolality 284 mOsm/kg (285-295) L 02/26/22 11:58 Calcium 9.2 mg/dL (8.5-10.5) 02/26/22 11:58 Total Bilirubin 2.6 mg/dL (0.15-1.2) H 02/26/22 11:58 AST 356 U/L (0-32) H 02/26/22 11:58 ALT 73 U/L (0-33) H 02/26/22 11:58 Alkaline Phosphatase 259 U/L (35-105) H 02/26/22 11:58 Total Protein 9.0 g/dL (6.6-8.7) H 02/26/22 11:58 Albumin 3.7 g/dL (3.5-5.2) 02/26/22 11:58 Globulin 5.3 g/dL (1.3-4.6) H 02/26/22 11:58 Lipase 30 U/L (13-60) 02/26/22 11:58 Urine Color [place] (Yellow) 02/26/22 11:26 Urine Appearance Hazy (CLEAR) A 02/26/22 11:26 Urine pH 6 (5-7) 02/26/22 11:26 Ur Specific [place] 1.020 (1.005-1.030) 02/26/22 11:26 Urine Protein 1+ (Negative) H 02/26/22 11:26 Urine Glucose (UA) Norm (Normal) 02/26/22 11:26 Urine Ketones 1+ (Negative) H 02/26/22 11:26 Urine Blood 2+ (Negative) H 02/26/22 11:26 Urine Nitrate Positive (Negative) H 02/26/22 11:26 Urine Bilirubin 2+ (Negative) H 02/26/22 11:26 Urine Urobilinogen 4+ mg/dL (Negative) H 02/26/22 11:26 Ur Leukocyte Esterase 2+ (Negative) H 02/26/22 11:26 Urine RBC 5-10 /hpf (0-2) H 02/26/22 11:26 Urine WBC 40-55 /hpf (0-5) H 02/26/22 11:26 Ur Squamous Epith Cells 5-10 /hpf (0-5) H 02/26/22 11:26 Amorphous Sediment Not Reportable 02/26/22 11:26 Urine Bacteria 1+ /hpf (NONE) H 02/26/22 11:26 Urine Mucus 2+ /hpf 02/26/22 11:26 Ethyl Alcohol 119 mg/dL (0-10) H 02/26/22 11:58 Imaging Data KUB: I personally reviewed and interpreted this imaging study as follows: My impression: Moderate stool throughout the colon. No obstruction seen. No free air seen. CT Abd/Pel: Radiologist's impression: PROCEDURE INFORMATION: Exam: CT Abdomen And Pelvis With Contrast Exam date and time: 02/26/2022 1:12 PM Age: 51 years old Clinical indication: Abdominal pain; Epigastric; Additional info: Epig abd pain; H/o pancreatitis, lipase normal; Alcoholic; N/v TECHNIQUE: Imaging protocol: Computed tomography of the abdomen and pelvis with contrast. Radiation optimization: All CT scans at this facility use at least one of these dose optimization techniques: automated exposure control; mA and/or kV adjustment per patient size (includes targeted exams where dose is matched to clinical indication); or iterative reconstruction. Contrast material: OMNI 35; Contrast volume: 100 ml; Contrast route: INTRAVENOUS (IV);? COMPARISON: CT abdomen pelvis w con* [id number] 02/11/2022 9:19 AM RADIATION DOSE METRICS: Total DLP (mGy-cm): 667.21 FINDINGS: Lungs: There is a small cluster of nodular opacities at the left lung base that have developed likely in secondary to bronchiolitis. Liver: Liver is enlarged with pronounced fatty infiltration. Gallbladder and bile ducts: Gallbladder has been removed. There is stable dilatation of the common bile duct measuring 1.2 cm. Pancreas: The pancreas is unchanged and unremarkable. No inflammatory changes detected. Spleen: Normal. No splenomegaly. Adrenal glands: Normal. No mass. Kidneys and ureters: Normal. No hydronephrosis. Stomach and bowel: Unremarkable. No obstruction. No mucosal thickening. Appendix: No evidence of appendicitis. Intraperitoneal space: Unremarkable. No free air. No significant fluid collection. Vasculature: Unremarkable. No abdominal aortic aneurysm. Lymph nodes: Unremarkable. No enlarged lymph nodes. Urinary bladder: Unremarkable as visualized. Reproductive: Uterus has been removed. Bones/joints: Unremarkable. No acute fracture. Soft tissues: Unremarkable. CT/CT abdomen pelvis w con* [id number] IMPRESSION: 1. No acute findings within the abdomen or pelvis. 2. Hepatomegaly with marked fatty infiltration. 3. Prior cholecystectomy with stable dilatation of the common bile duct. 4. No evidence of acute pancreatitis. 5. Minimal bronchiolitis left lung base. ? Dictated By: Kannan Curtis MD Signed By: Kannan Curtis MD Signed Date/Time: 02/26/22 1402 Discharge Plan Discharge Clinical Impression: Abdominal pain, Nausea & vomiting, Urinary tract infection, Alcoholic gastritis, Acute hypokalemia Condition: Stable Prescriptions: No Action omeprazole 40 mg capsule,delayed release(DR/EC) 40 mg PO BID sucralfate 1 gram tablet 1 g PO AC&BEDTIME Qty: 56 0RF Referrals: Aditya Degroot DO [Primary Care Provider] - Patient Instructions: Abdominal Pain (ED) Coding Level of Care Code ED Certified Adaptive Physical Educator for Chg Fwd Exam Comprehensive
[2022-02-26] MEDS: ondansetron 2 mg/ML SDV 2 mL 4 MG IVP ×3 (11:57→22:55)
[2022-02-26] MEDS: HYDROmorphone 1 mg/mL INJ 1 mL 0.5 MG IVP ×2 (11:57→16:04)
[2022-02-26] MEDS: pantoprazole 40 mg SDV IVP ×2 (11:57→18:06)
[2022-02-26 12:07] LABS: Bilirubin Urine 2+ (Negative); Blood Urine 2+ (Negative); Glucose Urine UA Norm (Normal); Ketones Urine 1+ (Negative); Nitrate Urine Positive (Negative); Protein Urine 1+ (Negative); Urine Appearance Hazy (CLEAR); Urine Color Amber (Yellow); pH Urine 6 (5-7)
[2022-02-26 12:08] LABS: Basophils # 0.1 10^3/uL (0.0-0.1); Basophils % 0.8 %; Eosinophils % 0.5 %; Hematocrit 34.4 % (37.0-47.0); Hemoglobin 12.2 g/dL (11.5-15.3); Lymphocytes # 1.1 10^3/uL (0.8-4.8); Lymphocytes % 12.7 %; Mean Corpuscular HGB Conc 35.5 g/dL (30.0-36.0); Mean Corpuscular Hemoglobin 39.5 pg (28.0-34.0); Mean Corpuscular Volume 111.3 fl (81-99); Mean Platelet Volume 10.6 fL (7.4-10.4); Monocytes # 0.5 10^3/uL (0.2-0.9); Monocytes % 6.3 %; Neutrophils % 79.5 %; Nucleated Red Blood Cells % 0 %; Platelet Count 126 10^3/cmm (130-400); Red Blood Count 3.09 10^6/uL (4.1-5.3); Red Cell Distribution Width 16.3 % (12.1-15.1); White Blood Count 8.3 10^3/uL (4.0-10.0)
[2022-02-26 12:08] LABS: Add Urine Culture? Yes; Bacteria Urine 1+ /hpf; Leukocyte Esterase Urine 2+ (Negative); Mucus Urine 2+ /hpf; Urobilinogen Urine 4+ mg/dL (Negative); WBC Urine 40-55 /hpf (0-5)
[2022-02-26] MEDS: cefTRIAXone 1,000 MG in sodium chloride 0.9% (plus) 50 ML 100 MG IV (12:23)
[2022-02-26 12:29] LABS: Alanine Aminotransferase 73 U/L (0-33); Albumin Level 3.7 g/dL (3.5-5.2); Alcohol Level 119 mg/dL (0-10); Alkaline Phosphatase 259 U/L (35-105); Anion Gap 21.7 (5-19); Aspartate Amino Transferase 356 U/L (0-32); Blood Urea Nitrogen 6 mg/dL (6-20); Calcium 9.2 mg/dL (8.5-10.5); Carbon Dioxide 20 mmol/L (22-29); Chloride 99 mmol/L (98-107); Globulin 5.3 g/dL (1.3-4.6); Glomerular Filtration Rate 129.1 mL/min (90-130); Glucose 104 mg/dL (65-115); Lipase 30 U/L (13-60); Osmolality Calculated 284 mOsm/kg (285-295); Sodium 138 mmol/L (136-145); Total Bilirubin 2.6 mg/dL (0.15-1.2)
[2022-02-26 12:30] LABS: Potassium 2.7 mmol/L (3.5-5.1)
--- NOTE | 2022-02-26 12:32 | PC.NURSE ---
PATIENT COMPLAINING OF PAIN AFTER STARTING IV ABX. IV REMOVED. PROVIDER NOTIFIED.
--- NOTE | 2022-02-26 12:51 | CTR_ITS ---
PROCEDURE INFORMATION: Exam: CT Abdomen And Pelvis With Contrast Exam date and time: 02/26/2022 1:12 PM Age: 51 years old Clinical indication: Abdominal pain; Epigastric; Additional info: Epig abd pain; H/o pancreatitis, lipase normal; Alcoholic; N/v TECHNIQUE: Imaging protocol: Computed tomography of the abdomen and pelvis with contrast. Radiation optimization: All CT scans at this facility use at least one of these dose optimization techniques: automated exposure control; mA and/or kV adjustment per patient size (includes targeted exams where dose is matched to clinical indication); or iterative reconstruction. Contrast material: OMNI 35; Contrast volume: 100 ml; Contrast route: INTRAVENOUS (IV); COMPARISON: CT abdomen pelvis w con* [id number] 02/11/2022 9:19 AM RADIATION DOSE METRICS: Total DLP (mGy-cm): 667.21 FINDINGS: Lungs: There is a small cluster of nodular opacities at the left lung base that have developed likely in secondary to bronchiolitis. Liver: Liver is enlarged with pronounced fatty infiltration. Gallbladder and bile ducts: Gallbladder has been removed. There is stable dilatation of the common bile duct measuring 1.2 cm. Pancreas: The pancreas is unchanged and unremarkable. No inflammatory changes detected. Spleen: Normal. No splenomegaly. Adrenal glands: Normal. No mass. Kidneys and ureters: Normal. No hydronephrosis. Stomach and bowel: Unremarkable. No obstruction. No mucosal thickening. Appendix: No evidence of appendicitis. Intraperitoneal space: Unremarkable. No free air. No significant fluid collection. Vasculature: Unremarkable. No abdominal aortic aneurysm. Lymph nodes: Unremarkable. No enlarged lymph nodes. Urinary bladder: Unremarkable as visualized. Reproductive: Uterus has been removed. Bones/joints: Unremarkable. No acute fracture. Soft tissues: Unremarkable. CT/CT abdomen pelvis w con* [id number] IMPRESSION: 1. No acute findings within the abdomen or pelvis. 2. Hepatomegaly with marked fatty infiltration. 3. Prior cholecystectomy with stable dilatation of the common bile duct. 4. No evidence of acute pancreatitis. 5. Minimal bronchiolitis left lung base.
[2022-02-26] MEDS: iohexol 350 mg/mL 500 mL Btl (per mL) IV (13:17)
[2022-02-26] MEDS: LORazepam 2 mg/mL INJ 1 mL 0.5 MG IVP (13:41)
[2022-02-26] MEDS: potassium chloride premix 100 ML 25 MEQ IV (13:42)
[2022-02-26] MEDS: sodium chloride 0.9% 1,000 ML 999 ML IV (13:47)
--- NOTE | 2022-02-26 15:41 | P.HP_ITS ---
Providers/Chief Complaint Admitting Physician: Lance Galdamez MD Primary Care Provider: Aditya Degroot DO Chief Complaint: N/V chest pains History of Present Illness Melissa Portillo is a 51 year old female with a past medical history significant for alcohol use disorder with abuse, alcoholic gastritis, alcoholic ketoacidosis, anxiety, chronic back pain, chronic pancreatitis, liver cirrhosis, GERD, H. pylori infection, and tobacco use disorder who presents to the emergency department complaining of nausea, vomiting, and epigastric pain for the past 2 weeks. Despite the symptoms she states that she continued to drink alcohol daily. She reports her last drink was actually this morning. She reports that eating causes the pain to get worse. She denies any hematemesis, melena, or ev idence of other GI bleeds. She denies alleviating factors. Of note she has had multiple recent admissions 1 every month or every other month for the last several months with similar presentations. She did undergo an EGD on 12/09/2021 which showed gastritis. She endorses associated symptoms of dysuria. Denies fevers, chills, diarrhea, or hematuria. Review of Systems Narrative: A complete review of systems was obtained and is negative except as stated in HPI. Medications/Allergies Home Medications Medication Instructions Recorded Confirmed Last Taken Type omeprazole 40 mg capsule,delayed 40 mg PO BID 10/18/21 02/26/22 01/13/22 History release sucralfate 1 gram tablet 1 g PO AC&BEDTIME #56 tabs 01/20/22 02/26/22 Unknown Rx Allergies Allergy/AdvReac Type Severity Reaction Status Date / Time codeine Allergy ALGY-Hives Verified 01/14/22 19:43 ketorolac [From Toradol] Allergy ALGY-Rash Verified 01/14/22 19:43 naproxen [From Naprosyn] Allergy ADR-Vomitin Verified 01/14/22 19:43 g prochlorperazine Allergy ALGY-Swell Verified 01/14/22 19:43 [From Compazine] Lip/Tongue/Throat Penicillins AdvReac Intermediate ADR-Vomitin Verified 01/14/22 19:43 g PFSH Acute PFSH: Medical History (Updated 02/26/22 @ 16:32 by Lance Galdamez MD) Abdominal pain Abdominal pain Abdominal pain Acute dehydration KATRIN (acute kidney injury) Alcohol dependence Alcohol dependence with withdrawal Alcohol withdrawal Alcoholic hepatitis Alcoholic ketoacidosis Alcoholism Anemia Anxiety Carpal tunnel syndrome Chronic back pain Chronic pancreatitis Cirrhosis Enteritis Fracture of proximal phalanx of right thumb Gastritis GERD (gastroesophageal reflux disease) H. pylori infection Hepatitis A Hypokalemia Hypokalemia Intractable nausea and vomiting Intractable nausea and vomiting Macrocytic anemia Nausea and vomiting Pancytopenia Pancytopenia Sciatica Small bowel obstruction, partial Tobacco dependency Surgical History H/O rotator cuff surgery H/O: hysterectomy History of appendectomy History of cholecystectomy Family History Denies family history of Diabetes CAD (coronary artery disease) Dementia Social History Smoking and tobacco status: current every day smoker Alcohol intake: current Alcohol intake frequency: 3 or more drinks per day Alcohol type: hard liquor Desire information about alcohol rehabilitation?: No Current occupation: On disability Vitals/I&O/Wt Last Vital Signs Temp 99.2 F 02/26/22 11:12 Pulse 83 02/26/22 15:01 Resp 20 H 02/26/22 15:01 BP 124/87 02/26/22 15:01 Pulse Ox 93 02/26/22 15:01 O2 Del Method 02/26/22 15:01 02/26/22 02/26/22 02/26/22 06:59 14:59 22:59 Intake Total 50 / 50 Balance 50 / 50 Weight last 48 hrs Weight 72.575 kg Physical Exam Narrative: General: Patient is severe distress. Vomiting on exam. Head: Normocephalic. Atraumatic. EOM intact. Some temporal wasting. Dry mucous membranes. Neck: No JVD. Cardiovascular: RRR. No gallops. No murmurs. Lungs: Coarse breath sounds, diminished at bilateral bases, no use of accessory muscles, no crackles or wheezes. Skin: No jaundice. No rashes. Abdomen: Tender to palpation worse in the epigastric area. Hypoactive bowel sounds. Actively vomiting on exam. Genito Urinary: Genital exam not performed since complaints not related. Rectal: Rectal exam not performed since no symptoms indicated blood loss. Extremities: No cyanosis or clubbing. Musculoskeletal: No swollen or erythematous joints. Neurological: Moves all 4 extremities. No myoclonus. Data 02/26/22 11:58 02/26/22 11:58 A&P Assessment and plan (1) Nausea & vomiting: Secondary to alcoholic gastritis Associated with epigastric pain and dehydration No acute findings on CT abd/pelvis Start IV fluids for hydration IV protonix Antiemetics as needed Supportive care Qualifiers: Vomiting type: unspecified Qualified Code(s): R11.2 - Nausea with vomiting, unspecified (2) Alcoholic gastritis: Treat symptoms Encourage cessation Qualifiers: Chronicity: acute Gastritis bleeding: without bleeding Qualified Code(s): K29.20 - Alcoholic gastritis without bleeding (3) Acute hypokalemia: Secondary to intractable nausea and vomiting, as well as alcoholism Repleting potassium Telemetry monitoring Check magnesium (4) Urinary tract infection: History of recurrent E Coli UTI Start ceftriaxone Follow up urine culture Qualifiers: Hematuria presence: without hematuria Urinary tract infection type: site unspecified Qualified Code(s): N39.0 - Urinary tract infection, site not specified (5) Chronic alcoholic hepatitis: Associated with transaminitis and alcholic liver cirrhosis Encourage alcohol cessation (6) Alcohol use disorder: [facility] protocol Thiamine, folic acid, multivitamin Encourage cessation (7) Chronic pancreatitis: Lipase unremarkable No pancreatitis seen on CT Qualifiers: Pancreatitis type: alcohol induced Qualified Code(s): K86.0 - Alcohol- induced chronic pancreatitis (8) Thrombocytopenia: Secondary to alcoholism No signs or symptoms of bleeding (9) Tobacco dependency: Smokes 1 PPD Agreeable to nicotine patch Plan DVT ppx: Lovenox Code status: Full Code Attestations Medical Necessity Statement*: Patient requires hospitalization for electrolytes replacement, IVF resuscitation, CIWA for ETOH withdrawal, and supportive care with expected hospitazation to cross 2 midnights. Coding Level of Care Code Acute Code for Chg Fwd Diagnoses Nausea & vomiting R11.2 Vomiting type: unspecified Alcoholic gastritis K29.20 Chronicity: acute Gastritis bleeding: without bleeding Acute hypokalemia E87.6 Urinary tract infection N39.0 Hematuria presence: without hematuria Urinary tract infection type: site unspecified Chronic alcoholic hepatitis K70.10 Alcohol use disorder F19.90 Chronic pancreatitis K86.0 Pancreatitis type: alcohol induced Thrombocytopenia D69.6 Tobacco dependency F17.200
[2022-02-26] MEDS: sodium chloride 0.9% 500 ML 1000 ML IV (16:10)
[2022-02-26] MEDS: sucralfate 1 gm Tablet PO ×2 (18:06→21:08)
[2022-02-26] MEDS: nicotine 21 mg Patch 1 PATCH TRANSDERMA (18:06)
[2022-02-26] MEDS: sodium chloride 0.9% 1,000 ML 75 ML IV (18:07)
[2022-02-26 18:55] LABS: Procalcitonin 0.11 ng/mL (0-0.5)
[2022-02-26] MEDS: LORazepam 2 mg/mL INJ 1 mL IVP (20:59)
[2022-02-26] MEDS: promethazine 25 mg/mL SDV 1 mL IM (21:07)
[2022-02-26] MEDS: enoxaparin 40 mg/0.4 mL Syringe SUBCUT (21:08)
[2022-02-26] MEDS: TRAMadol 50 mg Tablet 25 MG PO (22:24)
[2022-02-27] MEDS: LORazepam 2 mg/mL INJ 1 mL IVP ×2 (01:04→21:10)
[2022-02-27 04:00] VITALS: BP 124/80; PULSE 98; RESP 16; TEMP 36.9; O2SAT 92
[2022-02-27 05:29] LABS: Basophils % 0.5 %; Eosinophils # 0.1 10^3/uL (0.0-0.8); Hematocrit 27.1 % (37.0-47.0); Hemoglobin 9.1 g/dL (11.5-15.3); Lymphocytes # 1.4 10^3/uL (0.8-4.8); Lymphocytes % 33.5 %; Mean Corpuscular HGB Conc 33.6 g/dL (30.0-36.0); Mean Corpuscular Hemoglobin 39.1 pg (28.0-34.0); Mean Corpuscular Volume 116.3 fl (81-99); Mean Platelet Volume 11.5 fL (7.4-10.4); Monocytes # 0.3 10^3/uL (0.2-0.9); Monocytes % 8.3 %; Neutrophils # 2.27 10^3/uL (1.8-7.7); Neutrophils % 55.5 %; Nucleated Red Blood Cells % 0 %; Platelet Count 86 10^3/cmm (130-400); Red Blood Count 2.33 10^6/uL (4.1-5.3); Red Cell Distribution Width 16.5 % (12.1-15.1); White Blood Count 4.1 10^3/uL (4.0-10.0)
[2022-02-27 05:40] LABS: Alanine Aminotransferase 46 U/L (0-33); Albumin Level 2.8 g/dL (3.5-5.2); Alkaline Phosphatase 187 U/L (35-105); Aspartate Amino Transferase 204 U/L (0-32); Blood Urea Nitrogen 6 mg/dL (6-20); Carbon Dioxide 22 mmol/L (22-29); Chloride 102 mmol/L (98-107); Globulin 4.1 g/dL (1.3-4.6); Glucose 75 mg/dL (65-115); Osmolality Calculated 272 mOsm/kg (285-295); Phosphorus 2.9 mg/dL (2.5-4.5); Sodium 133 mmol/L (136-145); Total Bilirubin 2.7 mg/dL (0.15-1.2); Total Protein 6.9 g/dL (6.6-8.7)
[2022-02-27 06:00] VITALS: PULSE 90
[2022-02-27] MEDS: pantoprazole 40 mg SDV IVP ×2 (06:00→17:31)
[2022-02-27] MEDS: sodium chloride 0.9% 1,000 ML 75 ML IV ×2 (06:28→21:10)
[2022-02-27] MEDS: sucralfate 1 gm Tablet PO ×4 (06:30→21:10)
[2022-02-27 07:30] VITALS: BP 119/75; PULSE 90; RESP 18; TEMP 37.2; O2SAT 95
[2022-02-27] MEDS: multivitamin therapeutic Tablet 1 TAB PO (09:51)
[2022-02-27] MEDS: cefTRIAXone 1,000 MG in sodium chloride 0.9% (plus) 50 ML 100 MG IV (09:51)
[2022-02-27] MEDS: ondansetron 2 mg/ML SDV 2 mL 4 MG IVP (09:51)
[2022-02-27] MEDS: folic acid 1 mg Tablet PO (09:51)
[2022-02-27] MEDS: nicotine 21 mg Patch 1 PATCH TRANSDERMA (09:51)
[2022-02-27] MEDS: thiamine 100 mg Tablet PO (09:51)
--- NOTE | 2022-02-27 10:53 | PC.CHAP ---
Pastoral Care Encounter/Spiritual Assessment Type of Contact [] Declined resource room teacher visit [] Patient/Family/Request visit [] Outpatient visit [] Follow-up visit [] Physician referral [] Code/Alert [x]x Routine visit [] Staff referral [] Actively dying [x] Patient sleeping [] Family support [] [] Out of room [] Palliative care [] [] Receiving care in room [] Pre-surgical visit [] Trauma [] Long length of stay [] ICU visit [] Other: Relational/Emotional Strength [] Patient feels connected with others/family/visitors/staff [] Distress [] Loneliness/isolation [] Abandonment Spirituality of Patient [] Person of Lety [] Attends Restoration of their Lety [] Believes in Prayer [] Reads Bible or Taoism materials [] There are Spiritual issues to be addressed Toll Bridge Attendant Interventions [] Prayer [] Active listening [] Non-anxious presence [] Spiritual/emotional support [] Crisis/trauma care [] Spiritual counseling [] Bereavement support [] Provided bereavement packet [] Provided Bible/devotional materials [] Provided toy/stuffed animal, coloring book to patient or family member [] Provided Communion [] Anointing/[place] [] Salvation [] Completed spiritual assessment [] Other: Impact on Illness or Injury [] Angry [] Fearful [] Anxious [] Often cries [] Exhaustion [] Unable to work [] Unable to attend jew [] Unable to walk/stand [] Unable to read [] Unable to drive [] Unable to eat/drink [] Unable to sleep [] Unable to be with family [] Patient intubated [] Other: Summary Time spent with patient
[2022-02-27 12:00] VITALS: BP 131/89; PULSE 92; RESP 17; TEMP 36.7; O2SAT 97
[2022-02-27] MEDS: LORazepam 2 mg Tablet PO (12:30)
--- NOTE | 2022-02-27 13:36 | P.PN_ITS ---
Subjective Subjective: Patient was seen and examined this morning she was complaining of generalized abdominal pain, dry heaves. She was also complaining of back pain. Medications: Medication Review Details: Generic Name Dose Route Start Last Admin Trade Name Freq PRN Reason Stop Dose Admin Enoxaparin Sodium 40 mg 02/26/22 21:00 02/26/22 21:08 Enoxaparin 40 Mg /0.4 Ml Syringe SUBCUT 40 mg BEDTIME ANNETTA Administration Folic Acid 1 mg 02/27/22 09:00 02/27/22 09:51 Folic Acid 1 Mg Tablet PO 1 mg DAILY ANNETTA Administration Ceftriaxone Sodium 1,000 mg/ 50 mls @ 100 mls/ hr 02/27/22 09:00 02/27/22 09:51 Sodium Chloride IV 100 mls/hr DAILY ANNETTA Administration Protocol Sodium Chloride 1,000 mls @ 75 ml s/hr 02/26/22 17:41 02/27/22 06:28 Sodium Chloride 0.9% IV 75 mls/hr .[id number] ANNETTA Administration Lorazepam 2 mg 02/26/22 19:01 02/27/22 01:04 Lorazepam 2 Mg/M l Inj 1 Ml IVP 2 mg PRN PRN Administration WITHDRAWAL Protocol Lorazepam 2 mg 02/26/22 19:01 02/27/22 12:30 Lorazepam 2 Mg T ablet PO 2 mg Q4H PRN Administration WITHDRAWAL Protocol Multivitamins Ther apeutic 1 tab 02/27/22 09:00 02/27/22 09:51 Multivitamin The rapeutic Tablet PO 1 tab DAILY ANNETTA Administration Nicotine 1 patch 02/26/22 17:41 02/27/22 09:51 Nicotine 21 Mg P atch TRANSDERMA 1 patch DAILY ANNETTA Administration Ondansetron HCl 4 mg 02/26/22 15:35 02/27/22 09:51 Ondansetron 2 Mg /Ml Sdv 2 Ml IVP 4 mg Q6H PRN Administration NAUSEA AND VOMITI NG Pantoprazole Sodiu m 40 mg 02/26/22 17:41 02/27/22 06:00 Pantoprazole 40 Mg Sdv IVP 40 mg Q12H ANNETTA Administration Promethazine HCl 25 mg 02/26/22 17:41 02/26/22 21:07 Promethazine 25 Mg/Ml Sdv 1 Ml IM 25 mg Q6H PRN Administration NAUSEA Sucralfate 1 gm 02/26/22 17:00 02/27/22 12:29 Sucralfate 1 Gm Tablet PO 1 gm AC&BEDTIME ANNETTA Administration Thiamine Mononitra te 100 mg 02/27/22 09:00 02/27/22 09:51 Thiamine 100 Mg Tablet PO 100 mg DAILY ANNETTA Administration Vitals/I&O/Wt Last Vital Signs Temp 98.1 F 02/27/22 12:00 Pulse 92 02/27/22 12:00 Resp 17 02/27/22 12:00 BP 131/89 02/27/22 12:00 Pulse Ox 97 02/27/22 12:00 O2 Del Method 02/26/22 17:42 02/26/22 02/27/22 02/27/22 22:59 06:59 14:59 Intake Total 1840 / 1890 926.25 / 2816.25 Balance 1840 / 1890 926.25 / 2816.25 Weight last 48 hrs Weight 82.871 kg Weight 72.575 kg Physical Exam Const: COMMON NORMALS: patient oriented x3 Resp: COMMON NORMALS: normal respiratory effort, No retractions, No use of accessory muscles and clear to auscultation bilaterally EFFORT & INSPECTION: Yes symmetric chest movement AUSCULTATION: clear to auscultation bilaterally Cardio: COMMON NORMALS: regular rate, regular rhythm, S1 normal heart sound present, S2 normal heart sound present, No gallops present (Cardio), No murmurs present (Cardio), No rub (Cardio) and Peripheral pulses 2+ throughout RATE: regular rate RHYTHM: regular rhythm HEART SOUNDS: S1 normal heart sound present and S2 normal heart sound present PERIPHERAL PULSES: Peripheral pulses 2+ throughout GI: COMMON NORMALS: Normal to inspection, nondistended, normoactive bowel sounds present AUSCULTATION: Yes normoactive bowel sounds RECTAL EXAM: deferred OTHER: Generalized abdominal tenderness present, mild guarding, no rigidity, no rebound tenderness. Extremity: COMMON NORMALS: no clubbing, cyanosis or edema and no pedal edema Neuro: COMMON NORMALS: patient oriented x3 Data 02/27/22 04:54 02/27/22 04:54 Micro: Microbiology 02/26/22 11:26 Urine Culture - Preliminary Urine,Clean Catch Strep species, gamma-hemolytic A&P Assessment and plan (1) Nausea & vomiting: Secondary to alcoholic gastritis Associated with epigastric pain and dehydration No acute findings on CT abd/pelvis Start IV fluids for hydration IV protonix Antiemetics as needed Supportive care Qualifiers: Vomiting type: unspecified Qualified Code(s): R11.2 - Nausea with vomiting, unspecified (2) Alcoholic gastritis: Treat symptoms Encourage cessation Qualifiers: Chronicity: acute Gastritis bleeding: without bleeding Qualified Code(s): K29.20 - Alcoholic gastritis without bleeding (3) Acute hypokalemia: Secondary to intractable nausea and vomiting, as well as alcoholism Repleting potassium Telemetry monitoring Check magnesium (4) Urinary tract infection: History of recurrent E Coli UTI Start ceftriaxone Follow up urine culture Qualifiers: Hematuria presence: without hematuria Urinary tract infection type: site unspecified Qualified Code(s): N39.0 - Urinary tract infection, site not specified (5) Chronic alcoholic hepatitis: Associated with transaminitis and alcholic liver cirrhosis Encourage alcohol cessation (6) Alcohol use disorder: [facility] protocol Thiamine, folic acid, multivitamin Encourage cessation (7) Chronic pancreatitis: Lipase unremarkable No pancreatitis seen on CT Qualifiers: Pancreatitis type: alcohol induced Qualified Code(s): K86.0 - Alcohol- induced chronic pancreatitis (8) Thrombocytopenia: Secondary to alcoholism No signs or symptoms of bleeding (9) Tobacco dependency: Smokes 1 PPD Agreeable to nicotine patch (10) Hypomagnesemia: Will replace with 4 g IV magnesium Follow repeat a.m. magnesium Plan DVT ppx: Lovenox Code status: Full Code Attestations Medical Necessity Statement*: Needs to be in hospital for management of al coholic gastritis, electrolyte correction Coding Level of Care Code Acute Code for Chg Fwd Exam Detailed Diagnoses Nausea & vomiting R11.2 Vomiting type: unspecified Alcoholic gastritis K29.20 Chronicity: acute Gastritis bleeding: without bleeding Acute hypokalemia E87.6 Urinary tract infection N39.0 Hematuria presence: without hematuria Urinary tract infection type: site unspecified Chronic alcoholic hepatitis K70.10 Alcohol use disorder F19.90 Chronic pancreatitis K86.0 Pancreatitis type: alcohol induced Thrombocytopenia D69.6 Tobacco dependency F17.200 Hypomagnesemia E83.42
[2022-02-27] MEDS: lidocaine 1% 5 ML in potassium chloride premix 100 ML 26.25 ML IV (14:13)
[2022-02-27] MEDS: TRAMadol 50 mg Tablet PO (14:14)
[2022-02-27 16:00] VITALS: BP 122/87; PULSE 86; RESP 19; TEMP 36.9; O2SAT 97
[2022-02-27] MEDS: magnesium sulfate premix 4 GM/100 ML PREMIX IV (17:30)
[2022-02-27 19:32] VITALS: BP 112/74; PULSE 95; RESP 19; TEMP 36.8; O2SAT 95
[2022-02-27] MEDS: promethazine 25 mg/mL SDV 1 mL IM (20:51)
[2022-02-27] MEDS: enoxaparin 40 mg/0.4 mL Syringe SUBCUT (21:10)
[2022-02-28] VITALS (8 sets, daily range): BP systolic 118–129; BP diastolic 81–92; PULSE 77–94; RESP 16–20; TEMP 36.6–37.7; O2SAT 95–98
[2022-02-28] MEDS: ondansetron 2 mg/ML SDV 2 mL 4 MG IVP ×2 (00:54→16:41)
[2022-02-28 02:39] LABS: Basophils % 1.1 %; Eosinophils # 0.1 10^3/uL (0.0-0.8); Eosinophils % 3.7 %; Hematocrit 27.8 % (37.0-47.0); Hemoglobin 9.5 g/dL (11.5-15.3); Lymphocytes # 1.2 10^3/uL (0.8-4.8); Lymphocytes % 33.2 %; Mean Corpuscular HGB Conc 34.2 g/dL (30.0-36.0); Mean Corpuscular Hemoglobin 39.1 pg (28.0-34.0); Mean Corpuscular Volume 114.4 fl (81-99); Mean Platelet Volume 11.4 fL (7.4-10.4); Monocytes # 0.3 10^3/uL (0.2-0.9); Monocytes % 7.3 %; Neutrophils # 1.93 10^3/uL (1.8-7.7); Neutrophils % 54.4 %; Nucleated Red Blood Cells % 0 %; Platelet Count 81 10^3/cmm (130-400); Red Blood Count 2.43 10^6/uL (4.1-5.3); Red Cell Distribution Width 15.9 % (12.1-15.1); White Blood Count 3.6 10^3/uL (4.0-10.0)
[2022-02-28 03:08] LABS: Alanine Aminotransferase 39 U/L (0-33); Albumin Level 2.9 g/dL (3.5-5.2); Alkaline Phosphatase 173 U/L (35-105); Anion Gap 18.8 (5-19); Aspartate Amino Transferase 170 U/L (0-32); Blood Urea Nitrogen 5 mg/dL (6-20); Calcium 7.3 mg/dL (8.5-10.5); Carbon Dioxide 18 mmol/L (22-29); Chloride 103 mmol/L (98-107); Globulin 3.7 g/dL (1.3-4.6); Glucose 57 mg/dL (65-115); Osmolality Calculated 279 mOsm/kg (285-295); Sodium 137 mmol/L (136-145); Total Bilirubin 2.3 mg/dL (0.15-1.2); Total Protein 6.6 g/dL (6.6-8.7)
[2022-02-28 03:13] LABS: Magnesium 1.9 mg/dL (1.7-2.3); Phosphorus 2.1 mg/dL (2.5-4.5)
[2022-02-28] MEDS: TRAMadol 50 mg Tablet PO ×2 (03:16→13:30)
[2022-02-28 03:54] LABS: Potassium 2.8 mmol/L (3.5-5.1)
[2022-02-28] MEDS: LORazepam 2 mg/mL INJ 1 mL IVP (04:23)
[2022-02-28] MEDS: pantoprazole 40 mg SDV IVP ×2 (04:23→16:41)
[2022-02-28] MEDS: lidocaine 1% 5 ML in potassium chloride premix 100 ML 26.25 ML IV (04:28)
[2022-02-28] MEDS: sucralfate 1 gm Tablet PO ×4 (06:22→21:20)
[2022-02-28] MEDS: nicotine 21 mg Patch 1 PATCH TRANSDERMA (10:21)
[2022-02-28] MEDS: phosphorus 250 mg Tablet PO ×2 (10:21→16:41)
[2022-02-28] MEDS: folic acid 1 mg Tablet PO (10:21)
[2022-02-28] MEDS: multivitamin therapeutic Tablet 1 TAB PO (10:21)
[2022-02-28] MEDS: cefTRIAXone 1,000 MG in sodium chloride 0.9% (plus) 50 ML 50 MG IV (10:22)
[2022-02-28] MEDS: potassium chloride ER 20 mEq Tablet 40 MEQ PO (10:22)
[2022-02-28] MEDS: thiamine 100 mg Tablet PO (10:23)
[2022-02-28] MEDS: LORazepam 2 mg Tablet PO ×2 (10:34→19:14)
[2022-02-28] MEDS: sodium chloride 0.9% 1,000 ML 75 ML IV (13:30)
--- NOTE | 2022-02-28 14:22 | PM.PN ---
Subjective Subjective: Patient was seen and examined this morning, continues to complain of back pain as well as abdominal pain Severe hypokalemia noted this morning, serum potassium was 2.8, IV potassium replacement has been done, serum magnesium has improved, patient also had low-grade temp 1 episode last night T-max 100. Medications: Medication Review Details: Generic Name Dose Route Start Last Admin Trade Name Freq PRN Reason Stop Dose Admin Enoxaparin Sodium 40 mg 02/26/22 21:00 02/27/22 21:10 Enoxaparin 40 Mg /0.4 Ml Syringe SUBCUT 40 mg BEDTIME ANNETTA Administration Folic Acid 1 mg 02/27/22 09:00 02/28/22 10:21 Folic Acid 1 Mg Tablet PO 1 mg DAILY ANNETTA Administration Ceftriaxone Sodium 1,000 mg/ 50 mls @ 100 mls/ hr 02/27/22 09:00 02/28/22 10:22 Sodium Chloride IV 50 mls/hr DAILY ANNETTA Administration Protocol Sodium Chloride 1,000 mls @ 75 ml s/hr 02/26/22 17:41 02/28/22 13:30 Sodium Chloride 0.9% IV 75 mls/hr .[id number] ANNETTA Administration Lorazepam 2 mg 02/26/22 19:01 02/28/22 04:23 Lorazepam 2 Mg/M l Inj 1 Ml IVP 2 mg PRN PRN Administration WITHDRAWAL Protocol Lorazepam 2 mg 02/26/22 19:01 02/28/22 10:34 Lorazepam 2 Mg T ablet PO 2 mg Q4H PRN Administration WITHDRAWAL Protocol Multivitamins Ther apeutic 1 tab 02/27/22 09:00 02/28/22 10:21 Multivitamin The rapeutic Tablet PO 1 tab DAILY ANNETTA Administration Nicotine 1 patch 02/26/22 17:41 02/28/22 10:21 Nicotine 21 Mg P atch TRANSDERMA 1 patch DAILY ANNETTA Administration Ondansetron HCl 4 mg 02/26/22 15:35 02/28/22 00:54 Ondansetron 2 Mg /Ml Sdv 2 Ml IVP 4 mg Q6H PRN Administration NAUSEA AND VOMITI NG Pantoprazole Sodiu m 40 mg 02/26/22 17:41 02/28/22 04:23 Pantoprazole 40 Mg Sdv IVP 40 mg Q12H ANNETTA Administration Potassium Chloride 40 meq 02/28/22 09:00 02/28/22 10:22 Potassium Chlori de Er 20 Meq Table t PO 40 meq DAILY ANNETTA Administration Potassium Phosphat e 250 mg 02/28/22 09:00 02/28/22 10:21 Phosphorus 250 M g Tablet PO 250 mg BID ANNETTA Administration Promethazine HCl 25 mg 02/26/22 17:41 02/27/22 20:51 Promethazine 25 Mg/Ml Sdv 1 Ml IM 25 mg Q6H PRN Administration NAUSEA Sucralfate 1 gm 02/26/22 17:00 02/28/22 10:27 Sucralfate 1 Gm Tablet PO 1 gm AC&BEDTIME ANNETTA Administration Thiamine Mononitra te 100 mg 02/27/22 09:00 02/28/22 10:23 Thiamine 100 Mg Tablet PO 100 mg DAILY ANNETTA Administration Tramadol HCl 50 mg 02/27/22 12:39 02/28/22 13:30 Tramadol 50 Mg T ablet PO 50 mg BID PRN Administration MODERATE PAIN Vitals/I&O/Wt Last Vital Signs Temp 97.9 F 02/28/22 12:00 Pulse 85 02/28/22 12:00 Resp 18 02/28/22 12:00 BP 128/89 02/28/22 12:00 Pulse Ox 98 02/28/22 12:00 O2 Del Method 02/28/22 12:00 02/27/22 02/28/22 02/28/22 22:59 06:59 14:59 Intake Total 1375 / 1375 240 / 1615 1000 / 1000 Balance 1375 / 1375 240 / 1615 1000 / 1000 Weight last 48 hrs Weight 83.546 kg Weight 82.871 kg Physical Exam Const: COMMON NORMALS: patient oriented x3 Resp: COMMON NORMALS: clear to auscultation bilaterally EFFORT & INSPECTION: Yes symmetric chest movement AUSCULTATION: clear to auscultation bilaterally Cardio: COMMON NORMALS: regular rate, regular rhythm, S1 normal heart sound present, S2 normal heart sound present, No gallops present (Cardio), No murmurs present (Cardio), No rub (Cardio) and Peripheral pulses 2+ throughout RATE: regular rate RHYTHM: regular rhythm HEART SOUNDS: S1 normal heart sound present and S2 normal heart sound present PERIPHERAL PULSES: Peripheral pulses 2+ throughout GI: COMMON NORMALS: Normal to inspection, nondistended, normoactive bowel sounds present AUSCULTATION: Yes normoactive bowel sounds RECTAL EXAM: deferred OTHER: Generalized abdominal tenderness present, mild guarding, no rigidity, no rebound tenderness. Extremity: COMMON NORMALS: no clubbing, cyanosis or edema and no pedal edema Neuro: COMMON NORMALS: patient oriented x3 Data 02/28/22 02:23 02/28/22 02:23 Micro: Microbiology 02/26/22 11:26 Urine Culture - Final Urine,Clean Catch Enterococcus faecalis A&P Assessment and plan (1) Nausea & vomiting: Secondary to alcoholic gastritis Associated with epigastric pain and dehydration No acute findings on CT abd/pelvis Start IV fluids for hydration IV protonix Antiemetics as needed Supportive care Qualifiers: Vomiting type: unspecified Qualified Code(s): R11.2 - Nausea with vomiting, unspecified (2) Alcoholic gastritis: Treat symptoms Encourage cessation Qualifiers: Chronicity: acute Gastritis bleeding: without bleeding Qualified Code(s): K29.20 - Alcoholic gastritis without bleeding (3) Acute hypokalemia: Secondary to intractable nausea and vomiting, as well as alcoholism Repleting potassium Telemetry monitoring Check magnesium (4) Urinary tract infection: History of recurrent E Coli UTI. Currently urine culture is growing Enterococcus faecalis. Follow-up blood culture Currently on ceftriaxone Qualifiers: Hematuria presence: without hematuria Urinary tract infection type: site unspecified Qualified Code(s): N39.0 - Urinary tract infection, site not specified (5) Chronic alcoholic hepatitis: Associated with transaminitis and alcholic liver cirrhosis Encourage alcohol cessation (6) Alcohol use disorder: [facility] protocol Thiamine, folic acid, multivitamin Encourage cessation (7) Chronic pancreatitis: Lipase unremarkable No pancreatitis seen on CT Qualifiers: Pancreatitis type: alcohol induced Qualified Code(s): K86.0 - Alcohol-induced chronic pancreatitis (8) Thrombocytopenia: Secondary to alcoholism No signs or symptoms of bleeding (9) Tobacco dependency: Smokes 1 PPD Agreeable to nicotine patch (10) Hypomagnesemia: Will replace with 4 g IV magnesium Follow repeat a.m. magnesium Plan DVT ppx: Lovenox Code status: Full Code Attestations Medical Necessity Statement*: Patient is to be in hospital for, electrolyte replacement, monitoring for alcohol withdrawal. Coding Level of Care Code Acute Code for Chg Fwd Diagnoses Nausea & vomiting R11.2 Vomiting type: unspecified Alcoholic gastritis K29.20 Chronicity: acute Gastritis bleeding: without bleeding Acute hypokalemia E87.6 Urinary tract infection N39.0 Hematuria presence: without hematuria Urinary tract infection type: site unspecified Chronic alcoholic hepatitis K70.10 Alcohol use disorder F19.90 Chronic pancreatitis K86.0 Pancreatitis type: alcohol induced Thrombocytopenia D69.6 Tobacco dependency F17.200 Hypomagnesemia E83.42
[2022-02-28] MEDS: promethazine 25 mg/mL SDV 1 mL IM (19:14)
[2022-02-28] MEDS: enoxaparin 40 mg/0.4 mL Syringe SUBCUT (21:20)
--- NOTE | 2022-02-28 21:39 | PC.NURSE ---
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 stated I don't want to wear that
[2022-02-28] MEDS: morphine 4 mg/mL SDV 1 mL 1 MG IVP (22:14)
[2022-03-01] MEDS: sodium chloride 0.9% 1,000 ML 75 ML IV (01:40)
[2022-03-01 03:33] VITALS: BP 117/77; PULSE 94; RESP 18; TEMP 36.7; O2SAT 95
[2022-03-01] MEDS: pantoprazole 40 mg SDV IVP (05:26)
[2022-03-01] MEDS: sucralfate 1 gm Tablet PO (06:11)
[2022-03-01 06:15] VITALS: RESP 14
[2022-03-01] MEDS: morphine 4 mg/mL SDV 1 mL 1 MG IVP (06:15)
[2022-03-01 06:25] LABS: Eosinophils # 0.1 10^3/uL (0.0-0.8); Eosinophils % 3.5 %; Hematocrit 27.5 % (37.0-47.0); Hemoglobin 9.5 g/dL (11.5-15.3); Lymphocytes # 1.1 10^3/uL (0.8-4.8); Lymphocytes % 34.7 %; Mean Corpuscular HGB Conc 34.5 g/dL (30.0-36.0); Mean Corpuscular Hemoglobin 39.7 pg (28.0-34.0); Mean Corpuscular Volume 115.1 fl (81-99); Mean Platelet Volume 11.4 fL (7.4-10.4); Monocytes # 0.3 10^3/uL (0.2-0.9); Neutrophils # 1.61 10^3/uL (1.8-7.7); Neutrophils % 51.8 %; Nucleated Red Blood Cells % 0 %; Platelet Count 89 10^3/cmm (130-400); Red Blood Count 2.39 10^6/uL (4.1-5.3); Red Cell Distribution Width 15.9 % (12.1-15.1); White Blood Count 3.1 10^3/uL (4.0-10.0)
[2022-03-01 06:40] LABS: Alanine Aminotransferase 31 U/L (0-33); Albumin Level 2.9 g/dL (3.5-5.2); Alkaline Phosphatase 174 U/L (35-105); Anion Gap 15.4 (5-19); Aspartate Amino Transferase 122 U/L (0-32); Blood Urea Nitrogen 5 mg/dL (6-20); Calcium 7.6 mg/dL (8.5-10.5); Carbon Dioxide 19 mmol/L (22-29); Chloride 104 mmol/L (98-107); Globulin 3.8 g/dL (1.3-4.6); Glucose 76 mg/dL (65-115); Magnesium 1.4 mg/dL (1.7-2.3); Osmolality Calculated 276 mOsm/kg (285-295); Potassium 3.4 mmol/L (3.5-5.1); Sodium 135 mmol/L (136-145); Total Bilirubin 2.5 mg/dL (0.15-1.2); Total Protein 6.7 g/dL (6.6-8.7)
[2022-03-01] MEDS: cefTRIAXone 1,000 MG in sodium chloride 0.9% (plus) 50 ML 50 MG IV (08:04)
[2022-03-01 08:42] VITALS: BP 118/81; PULSE 89; RESP 17; TEMP 36.6
[2022-03-01] MEDS: thiamine 100 mg Tablet PO (09:37)
[2022-03-01] MEDS: phosphorus 250 mg Tablet PO (09:37)
[2022-03-01] MEDS: folic acid 1 mg Tablet PO (09:37)
[2022-03-01] MEDS: potassium chloride ER 20 mEq Tablet 40 MEQ PO (09:37)
[2022-03-01] MEDS: multivitamin therapeutic Tablet 1 TAB PO (09:37)
--- NOTE | 2022-03-01 09:56 | P.DS_ITS ---
Discharge Providers Date of Admission: 02/26/22 15:35 Date of Discharge: March 01, 2022 Attending Provider at Admission: Lance Galdamez MD Attending Provider at Discharge: Angel Luis Lundy MD Primary Care Provider: Aditya Degroot DO Diagnoses at Discharge Discharge Diagnosis (1) Nausea & vomiting: Status: Acute Qualifiers: Vomiting type: unspecified Qualified Code(s): R11.2 - Nausea with vomiting, unspecified (2) Alcoholic gastritis: Status: Acute Qualifiers: Chronicity: acute Gastritis bleeding: without bleeding Qualified Code(s): K29.20 - Alcoholic gastritis without bleeding (3) Acute hypokalemia: Status: Acute (4) Urinary tract infection: Status: Acute Qualifiers: Hematuria presence: without hematuria Urinary tract infection type: site unspecified Qualified Code(s): N39.0 - Urinary tract infection, site not specified (5) Chronic alcoholic hepatitis: Status: Acute (6) Alcohol use disorder: Status: Acute (7) Chronic pancreatitis: Status: Acute Qualifiers: Pancreatitis type: alcohol induced Qualified Code(s): K86.0 - Alcohol- induced chronic pancreatitis (8) Thrombocytopenia: Status: Acute (9) Tobacco dependency: Status: Acute (10) Hypomagnesemia: Status: Acute Reason for Visit Reason for Visit: N/V chest pains Hospital Course Hospital Course HPI: Lance Galdamez MD Melissa Portillo is a 51 year old female with a past medical history significant for alcohol use disorder with abuse, alcoholic gastritis, alcoholic ketoacidosis, anxiety, chronic back pain, chronic pancreatitis, liver cirrhosis, GERD, H. pylori infection, and tobacco use disorder who presents to the emergency department complaining of nausea, vomiting, and epigastric pain for the past 2 weeks.? Despite the symptoms she states that she continued to drink alcohol daily.? She reports her last drink was actually this morning.? She reports that eating causes the pain to get worse.? She denies any hematemesis, melena, or evidence of other GI bleeds.? She denies alleviating factors.? Of note she has had multiple recent admissions 1 every month or every other month for the last several months with similar presentations.? She did undergo an EGD on 12/09/2021 which showed gastritis.? She endorses associated symptoms of dysuria.? Denies fevers, chills, diarrhea, or hematuria. Hospital course: She was admitted for the management of nausea and vomiting secondary to likely gastritis, Multiple electrolyte derangements, UTI, alcohol abuse disorder, chronic thrombocytopenia , chronic pancreatitis , chronic alcoholic hepatitis ,monitoring for alcohol withdrawal, patient was kept on CIWA protocol,, IV hydration IV Protonix antiemetics, multiple electrolyte abnormality corrections were done, he was kept on thiamine folic acid multivitamins, pain control, follow UTI, urine culture grew Enterococcus faecalis he was on ceftriaxone and was discharged on p.o. levofloxacin. During the hospital stay she also had 1 episode of low-grade temp of 100, no repeat temperature spikes were noted, blood cultures were drawn: Was negative at the time of discharge, CT abdomen and pelvis done during the hospital stay: Failed to show any acute pathology. CMP was monitored.Patient responded well to above medical management she was discharged in stable condition to home, has been counseled regarding alcohol cessation. She will continue to follow with PCP as outpatient. Physical Exam Const: COMMON NORMALS: patient oriented x3 Resp: COMMON NORMALS: normal respiratory effort, No retractions, No use of accessory muscles and clear to auscultation bilaterally EFFORT & INSPECTION: Yes symmetric chest movement AUSCULTATION: clear to auscultation bilaterally Cardio: COMMON NORMALS: regular rate, regular rhythm, S1 normal heart sound present, S2 normal heart sound present, No gallops present (Cardio), No murmurs present (Cardio), No rub (Cardio) and Peripheral pulses 2+ throughout RATE: regular rate RHYTHM: regular rhythm HEART SOUNDS: S1 normal heart sound present and S2 normal heart sound present PERIPHERAL PULSES: Peripheral pulses 2+ throughout GI: COMMON NORMALS: Normal to inspection, nondistended, normoactive bowel sounds present AUSCULTATION: Yes normoactive bowel sounds RECTAL EXAM: deferred OTHER: Generalized abdominal tenderness present, mild guarding, no rigidity, no rebound tenderness. Extremity: COMMON NORMALS: no clubbing, cyanosis or edema and no pedal edema Neuro: COMMON NORMALS: patient oriented x3 Discharge Data Studies Completed and Pending Completed Studies During Hospitalization Category Date Time Status CT abdomen pelvis w con* [id number] Urgent Cat Scan 02/26/22 12:51 Completed XR KUB portable [id number] Stat Exams 02/26/22 11:21 Completed Pending at discharge Category Date Time Status Blood Culture Routine Lab 02/28/22 14:55 Results CBC Auto Diff [Complete Blood Count w/Auto] AM LABS Lab 03/02/22 04:00 Ordered CMP [Comprehensive Metabolic Panel] AM LABS Lab 03/02/22 04:00 Ordered Magnesium AM LABS Lab 03/02/22 04:00 Ordered Radiology Impressions KUB X-Ray 02/26/22 11:21 IMPRESSION: Probable constipation otherwise negative abdomen. Abdomen/Pelvis CT 02/26/22 12:51 IMPRESSION: 1. No acute findings within the abdomen or pelvis. 2. Hepatomegaly with marked fatty infiltration. 3. Prior cholecystectomy with stable dilatation of the common bile duct. 4. No evidence of acute pancreatitis. 5. Minimal bronchiolitis left lung base. Laboratory Results WBC 3.1 10^3/uL (4.0-10.0) L 03/01/22 06:03 RBC 2.39 10^6/uL (4.1-5.3) L 03/01/22 06:03 Hgb 9.5 g/dL (11.5-15.3) L 03/01/22 06:03 Hct 27.5 % (37.0-47.0) L 03/01/22 06:03 MCV 115.1 fl (81-99) H 03/01/22 06:03 MCH 39.7 pg (28.0-34.0) H 03/01/22 06:03 MCHC 34.5 g/dL (30.0-36.0) 03/01/22 06:03 RDW 15.9 % (12.1-15.1) H 03/01/22 06:03 Plt Count 89 10^3/cmm (130-400) L 03/01/22 06:03 MPV 11.4 fL (7.4-10.4) H 03/01/22 06:03 Neut % (Auto) 51.8 % 03/01/22 06:03 Lymph % (Auto) 34.7 % 03/01/22 06:03 [place] % (Auto) 9.0 % 03/01/22 06:03 Eos % (Auto) 3.5 % 03/01/22 06:03 Baso % (Auto) 1.0 % 03/01/22 06:03 Neut # (Auto) 1.61 10^3/uL (1.8-7.7) L 03/01/22 06:03 Lymph # (Auto) 1.1 10^3/uL (0.8-4.8) 03/01/22 06:03 [place] # (Auto) 0.3 10^3/uL (0.2-0.9) 03/01/22 06:03 Eos # (Auto) 0.1 10^3/uL (0.0-0.8) 03/01/22 06:03 Baso # (Auto) 0.0 10^3/uL (0.0-0.1) 03/01/22 06:03 Nucleated RBC % (auto) 0 % 03/01/22 06:03 Nucleated RBCs # 0.0 /100WBC 03/01/22 06:03 Sodium 135 mmol/L (136-145) L 03/01/22 06:03 Potassium 3.4 mmol/L (3.5-5.1) L 03/01/22 06:03 Chloride 104 mmol/L (98-107) 03/01/22 06:03 Carbon Dioxide 19 mmol/L (22-29) L 03/01/22 06:03 Anion Gap 15.4 (5-19) 03/01/22 06:03 BUN 5 mg/dL (6-20) L 03/01/22 06:03 Creatinine 0.4 mg/dL (0.5-0.9) L 03/01/22 06:03 GFR Calculation 167.0 mL/min (90-130) H 03/01/22 06:03 Glucose 76 mg/dL (65-115) 03/01/22 06:03 Calculated Osmolality 276 mOsm/kg (285-295) L 03/01/22 06:03 Calcium 7.6 mg/dL (8.5-10.5) L 03/01/22 06:03 Phosphorus 2.1 mg/dL (2.5-4.5) L 02/28/22 02:23 Magnesium 1.4 mg/dL (1.7-2.3) L 03/01/22 06:03 Total Bilirubin 2.5 mg/dL (0.15-1.2) H 03/01/22 06:03 AST 122 U/L (0-32) H 03/01/22 06:03 ALT 31 U/L (0-33) 03/01/22 06:03 Alkaline Phosphatase 174 U/L (35-105) H 03/01/22 06:03 Total Protein 6.7 g/dL (6.6-8.7) 03/01/22 06:03 Albumin 2.9 g/dL (3.5-5.2) L 03/01/22 06:03 Globulin 3.8 g/dL (1.3-4.6) 03/01/22 06:03 Lipase 30 U/L (13-60) 02/26/22 11:58 Procalcitonin 0.11 ng/mL (0-0.5) 02/26/22 18:14 Urine Color Maribel (Yellow) 02/26/22 11:26 Urine Appearance Hazy (CLEAR) A 02/26/22 11:26 Urine pH 6 (5-7) 02/26/22 11:26 Ur Specific [place] 1.020 (1.005-1.030) 02/26/22 11:26 Urine Protein 1+ (Negative) H 02/26/22 11:26 Urine Glucose (UA) Norm (Normal) 02/26/22 11:26 Urine Ketones 1+ (Negative) H 02/26/22 11:26 Urine Blood 2+ (Negative) H 02/26/22 11:26 Urine Nitrate Positive (Negative) H 02/26/22 11:26 Urine Bilirubin 2+ (Negative) H 02/26/22 11:26 Urine Urobilinogen 4+ mg/dL (Negative) H 02/26/22 11:26 Ur Leukocyte Esterase 2+ (Negative) H 02/26/22 11:26 Urine RBC 5-10 /hpf (0-2) H 02/26/22 11:26 Urine WBC 40-55 /hpf (0-5) H 02/26/22 11:26 Ur Squamous Epith Cells 5-10 /hpf (0-5) H 02/26/22 11:26 Amorphous Sediment Not Reportable 02/26/22 11:26 Urine Bacteria 1+ /hpf (NONE) H 02/26/22 11:26 Urine Mucus 2+ /hpf 02/26/22 11:26 Ethyl Alcohol 119 mg/dL (0-10) H 02/26/22 11:58 Vitals Last Vital Signs Temp 98 F 03/01/22 08:42 Pulse 89 03/01/22 08:42 Resp 17 01/18/23 08:42 BP 118/81 03/01/22 08:42 Pulse Ox 95 03/01/22 03:33 O2 Del Method 03/01/22 08:42 Discharge Plan Discharge Patient Disposition: Home Condition: Stable Prescriptions: New Klor-Con M20 20 mEq Tablet,Er Particles/Crystals 40 meq PO DAILY 30 Days Qty: 30 1RF folic acid 1 mg Tablet 1 mg PO DAILY 30 Days Qty: 30 1RF Thera 400 mcg Tablet 1 tab PO DAILY 30 Days Qty: 30 3RF magnesium citrate 100 mg tablet 100 mg PO BID Qty: 60 0RF sucralfate 1 gram Tablet 1 g PO AC&BEDTIME 30 Days Qty: 60 2RF Pain Reliever (acetaminophen) 325 mg tablet 325 mg PO Q6H PRN (Reason: pain) Qty: 30 0RF levofloxacin 500 mg tablet 500 mg PO DAILY 3 Days Qty: 3 0RF Continued omeprazole 40 mg capsule,delayed release(DR/EC) 40 mg PO BID sucralfate 1 gram tablet 1 g PO AC&BEDTIME Qty: 56 0RF Discharge Orders: Discharge Order (Routine); Ordered 03/01/22 Ordered By: Angel Luis Lundy Referrals: Aditya Degroot DO [Primary Care Provider] - 03/08/22 8:30 am Discharge Diet: Regular Discharge Activity: Resume usual activity Patient Instructions: Alcohol Abuse, Sucralfate (By mouth), Potassium Chloride (By mouth), Levofloxacin (By mouth), Magnesium (By mouth), Urinary Tract Infection in Women (DC), Abdominal Pain (ED), Opioid Safety Discharge Attestations Time Spent in Discharge Care*: less than 30 min Status at Discharge: Cognitive status at discharge: cognitively intact , Behavioral status at discharge: cooperative , Quality Metrics Clinical Quality Measures [ No reported AMI, CVA or VTE this stay] Coding Level of Care Code Acute Chg FW DC note Diagnoses Nausea & vomiting R11.2 Vomiting type: unspecified Alcoholic gastritis K29.20 Chronicity: acute Gastritis bleeding: without bleeding Acute hypokalemia E87.6 Urinary tract infection N39.0 Hematuria presence: without hematuria Urinary tract infection type: site unspecified Chronic alcoholic hepatitis K70.10 Alcohol use disorder F19.90 Chronic pancreatitis K86.0 Pancreatitis type: alcohol induced Thrombocytopenia D69.6 Tobacco dependency F17.200 Hypomagnesemia E83.42
[2022-03-01 12:09] VITALS: BP 118/81; PULSE 89; RESP 17; TEMP 36.6; O2SAT 97
== END 2022-03-01 11:22 | disposition home or self-care (01) | DRG 433 ==
LOC: ER 15:35 → MEDSURG 16:12
PROVIDERS: Admitting Provider Internal Medicine; Emergency Provider Family Medicine; PCP Family Medicine; Visit Provider Internal Medicine
DX: K70.10 Alcoholic hepatitis without ascites (principal); K86.0 Alcohol-induced chronic pancreatitis; N39.0 Urinary tract infection, site not specified; K29.20 Alcoholic gastritis without bleeding; F10.129 Alcohol abuse with intoxication, unspecified; Y90.9 Presence of alcohol in blood, level not specified; D69.59 Other secondary thrombocytopenia; E87.6 Hypokalemia; E83.42 Hypomagnesemia; K21.9 Gastro-esophageal reflux disease without esophagitis; B95.2 Enterococcus as the cause of diseases classified elsewhere; F41.9 Anxiety disorder, unspecified; G89.29 Other chronic pain; M54.9 Dorsalgia, unspecified; F17.200 Nicotine dependence, unspecified, uncomplicated; Z87.440 Personal history of urinary (tract) infections
CPT/HCPCS: 36415; 74018; 74177; 80053; 80307; 81001; 83690; 83735; 84100; 84145; 85025; 87040; 87077; 87086; 87186; 96365; 96367; 96372; 96375; 96376; 99285; C9113; J0696; J1170; J1650; J2060; J2270; J2405; J2550; J3411; J3475; J3480; J7030; J7050; Q9967

== ENCOUNTER 2022-04-05 | Emergency (ER) | payer MEDICAID, SELFPAY ==
[2022-04-05 00:01] VITALS: BMI 27.4
[2022-04-05 00:05] VITALS: BP 100/70; PULSE 90; RESP 16; TEMP 36.5; O2SAT 94
--- NOTE | 2022-04-05 00:10 | PC.NURSE ---
performed rectal exam at bedside. Hemoccult negative at this time
--- NOTE | 2022-04-05 00:11 | CTR_ITS ---
PROCEDURE INFORMATION: Exam: CT Head Without Contrast Exam date and time: 04/05/2022 12:50 AM Age: 51 years old Clinical indication: Condition or disease; Convulsions or seizures; Patient HX: Patient reports multiple seizures. ; Additional info: Seizure TECHNIQUE: Imaging protocol: Computed tomography of the head without contrast. Radiation optimization: All CT scans at this facility use at least one of these dose optimization techniques: automated exposure control; mA and/or kV adjustment per patient size (includes targeted exams where dose is matched to clinical indication); or iterative reconstruction. REPORTING DATA: Count of CT and Cardiac NM exams in prior 12 months: This patient has received 8 known CTs and 0 known cardiac nuclear medicine studies in the 12 months prior to the current study. COMPARISON: CT head wo con* [id number] 06/08/2019 7:28 AM RADIATION DOSE METRICS: Total DLP (mGy-cm): 1902.38 FINDINGS: Brain: There is moderate cerebral atrophy. Negative for intracranial hemorrhage. Negative for intracranial mass. Negative for midline shift of brain. [place] matter and white matter interfaces are preserved.There is mild diffuse heterogeneity of the white matter attenuation, consistent with chronic white matter ischemic changes. Cerebral ventricles: No ventriculomegaly. Paranasal sinuses: Visualized sinuses are unremarkable. No fluid levels. Mastoid air cells: Visualized mastoid air cells are well aerated. Bones/joints: Unremarkable. No acute fracture. Soft tissues: Unremarkable. CT/CT head wo con* [id number] IMPRESSION: Negative for acute intracranial abnormality.
--- NOTE | 2022-04-05 00:13 | ED_ITS ---
HPI - Seizure General: Chief Complaint: Seizure Stated Complaint: seizures, ETOH Time Seen by Provider: 04/05/22 00:02 Source: patient and EMS Mode of arrival: EMS Limitations: no limitations History of Present Illness: HPI Narrative: 51-year-old female is very well-known to the ER has a history of alcoholism she has history of seizures as well alcohol gastritis. States she had multiple seizures over the last 2 days she is not on any medication she states she had some black stool she believes as well. She has had some mild cramping pain denies any fevers. Associated symptoms: Deny chest pain, chills or fever(s) Review of Systems Const: Denies: fever(s), chills, body aches or change in appetite Eyes: Denies: blurry vision or eye discomfort ENMT: Denies: throat pain or dental pain Card: Denies: chest pain Resp: Denies: dyspnea GI: Denies: abdominal pain, nausea, vomiting or diarrhea : Denies: dysuria Musc: Denies: neck pain or back pain Skin/Breast: Denies: rash Neuro: Reports: seizure-like activity Psych: Denies: depression Eric/Lymph: Denies: easy bruising All/Imm: Denies: urticaria PFSH ED PFSH: Medical History Abdominal pain Abdominal pain Abdominal pain Acute dehydration Acute hypokalemia KATRIN (acute kidney injury) Alcohol dependence Alcohol dependence with withdrawal Alcohol use disorder Alcohol withdrawal Alcoholic gastritis Alcoholic hepatitis Alcoholic ketoacidosis Alcoholism Anemia Anxiety Carpal tunnel syndrome Chronic alcoholic hepatitis Chronic back pain Chronic pancreatitis Cirrhosis Enteritis Fracture of proximal phalanx of right thumb Gastritis GERD (gastroesophageal reflux disease) H. pylori infection Hepatitis A Hypokalemia Hypokalemia Hypomagnesemia Intractable nausea and vomiting Intractable nausea and vomiting Macrocytic anemia Nausea & vomiting Nausea and vomiting Pancytopenia Pancytopenia Sciatica Small bowel obstruction, partial Thrombocytopenia Tobacco dependency Urinary tract infection Surgical History H/O rotator cuff surgery H/O: hysterectomy History of appendectomy History of cholecystectomy Family History Denies family history of Diabetes CAD (coronary artery disease) Dementia Social History Smoking and tobacco status: current every day smoker Alcohol intake: current Alcohol intake frequency: 3 or more drinks per day A lcohol type: hard liquor Desire information about alcohol rehabilitation?: No Current occupation: On disability Physical Exam Const: COMMON NORMALS: no acute distress, patient oriented x3 and healthy appearing HENMT: COMMON NORMALS: normocephalic and atraumatic HEAD & SCALP: normocephalic and atraumatic Eye: COMMON NORMALS: Equal, round and reactive pupils present and EOMs intact bilaterally PUPIL: Yes Equal, round and reactive pupils present Neck/C-Spine: COMMON NORMALS: full ROM and supple Chest: COMMONS NORMALS: normal inspection of the chest and normal palpation of entire chest wall Resp: COMMON NORMALS: normal respiratory effort, No retractions, No use of accessory muscles and clear to auscultation bilaterally AUSCULTATION: clear to auscultation bilaterally Cardio: COMMON NORMALS: regular rate, regular rhythm and No murmurs present (Cardio) RATE: regular rate RHYTHM: regular rhythm GI: COMMON NORMALS: Normal to inspection, nondistended, normoactive bowel sounds present, Soft to palpation, non-tender and no masses PALPATION: Yes Soft to palpation OTHER: Rectal exam shows brown stool that is Hemoccult negative Extremity: COMMON NORMALS: normal to inspection and full ROM Neuro: COMMON NORMALS: patient oriented x3, moves all extremities and no focal motor deficits Psych: COMMON NORMALS: mental status grossly normal, Normal thought process present and cooperative THOUGHT PROCESS: Normal thought process present Skin: COMMON NORMALS: no rashes or lesions noted and no wounds GENERAL SKIN EXAM: no rashes or lesions noted Course Vital Signs: Vital signs: Vital Signs Temperature 97.7 F 04/05/22 00:05 Pulse Rate 78 04/05/22 00:34 Respiratory Rate 21 H 04/05/22 00:34 Blood Pressure 91/64 04/05/22 00:34 Pulse Oximetry 97 04/05/22 00:34 Oxygen Delivery Me thod 04/05/22 00:05 MDM - Seizure MDM Narrative Medical decision making narrative: Patient presents here with possible seizure she is intoxicated here she had no seizure activity here blood work is all normal head CT is normal she is stable for discharge she has a ride coming to get her at this time. We will start her on Keppra she has had seizures in the past. Lab Data 04/05/22 00:24 04/05/22 00:24 Labs: Radiology Impressions Head CT 04/05/22 00:11 IMPRESSION: Negative for acute intracranial abnormality. Laboratory Results WBC 4.1 10^3/uL (4.0-10.0) 04/05/22 00:24 RBC 3.60 10^6/uL (4.1-5.3) L 04/05/22 00:24 Hgb 13.9 g/dL (11.5-15.3) 04/05/22 00:24 Hct 40.2 % (37.0-47.0) 04/05/22 00:24 MCV 111.7 fl (81-99) H 04/05/22 00:24 MCH 38.6 pg (28.0-34.0) H 04/05/22 00:24 MCHC 34.6 g/dL (30.0-36.0) 04/05/22 00: RDW 14.1 % (12.1-15.1) 04/05/22 00:24 Plt Count 74 10^3/cmm (130-400) L 04/05/22 00:24 MPV 11.3 fL (7.4-10.4) H 04/05/22 00:24 Neut % (Auto) 50.6 % 04/05/22 00:24 Lymph % (Auto) 40.1 % 04/05/22 00:24 [place] % (Auto) 6.2 % 04/05/22 00: Eos % (Auto) 1.7 % 04/05/22 00:24 Baso % (Auto) 1.2 % 04/05/22 00:24 Neut # (Auto) 2.05 10^3/uL (1.8-7.7) 04/05/22 00:24 Lymph # (Auto) 1.6 10^3/uL (0.8-4.8) 04/05/22 00:24 [place] # (Auto) 0.3 10^3/uL (0.2-0.9) 04/05/22 00:24 Eos # (Auto) 0.1 10^3/uL (0.0-0.8) 04/05/22 00:24 Baso # (Auto) 0.1 10^3/uL (0.0-0.1) 04/05/22 00:24 Nucleated RBC % (auto) 0 % 04/05/22 00:24 Nucleated RBCs # 0.0 /100WBC 04/05/22 00:24 Sodium 139 mmol/L (136-145) 04/05/22 00:24 Potassium 3.5 mmol/L (3.5-5.1) 04/05/22 00:24 Chloride 98 mmol/L (98-107) 04/05/22 00:24 Carbon Dioxide 20 mmol/L (22-29) L 04/05/22 00:24 Anion Gap 24.5 (5-19) H 04/05/22 00:24 BUN 9 mg/dL (6-20) 04/05/22 00:24 Creatinine 0.7 mg/dL (0.5-0.9) 04/05/22 00:24 GFR Calculation 87.5 mL/min (90-130) L 04/05/22 00:24 Glucose 75 mg/dL (65-115) 04/05/22 00:24 Calculated Osmolality 285 mOsm/kg (285-295) 04/05/22 00:24 Calcium 9.4 mg/dL (8.5-10.5) 04/05/22 00:24 Total Bilirubin 1.8 mg/dL (0.15-1.2) H 04/05/22 00:24 AST 230 U/L (0-32) H 04/05/22 00:24 ALT 50 U/L (0-33) H 04/05/22 00:24 Alkaline Phosphatase 248 U/L (35-105) H 04/05/22 00:24 Total Protein 9.9 g/dL (6.6-8.7) H 04/05/22 00:24 Albumin 4.4 g/dL (3.5-5.2) 04/05/22 00:24 Globulin 5.5 g/dL (1.3-4.6) H 04/05/22 00:24 Lipase 50 U/L (13-60) 04/05/22 00:24 Ethyl Alcohol 361 mg/dL (0-10) H* 04/05/22 00:24 Discharge Plan Discharge Patient Disposition: Home Clinical Impression: Alcohol intoxication, Seizure Condition: Stable Prescriptions: New Keppra 500 mg tablet 500 mg PO BID Qty: 60 0RF No Action omeprazole 40 mg capsule,delayed release(DR/EC) 40 mg PO BID sucralfate 1 gram tablet 1 g PO AC&BEDTIME Qty: 56 0RF Klor-Con M20 20 mEq Tablet,Er Particles/Crystals 40 meq PO DAILY 30 Days Qty: 30 1RF folic acid 1 mg Tablet 1 mg PO DAILY 30 Days Qty: 30 1RF Thera 400 mcg Tablet 1 tab PO DAILY 30 Days Qty: 30 3RF magnesium citrate 100 mg tablet 100 mg PO BID Qty: 60 0RF sucralfate 1 gram Tablet 1 g PO AC&BEDTIME 30 Days Qty: 60 2RF Pain Reliever (acetaminophen) 325 mg tablet 325 mg PO Q6H PRN (Reason: pain) Qty: 30 0RF Discharge Orders: Discharge ED (Routine); Ordered 04/05/22 Ordered By: Bruce Valdes Referrals: Aditya Degroot DO [Primary Care Provider] - 1-3 days Discharge Diet: Advance as tolerated Discharge Activity: Resume usual activity Patient Instructions: Abuse of Alcohol (ED), Recurrent Seizures in Adults (ED) Coding Level of Care Code ED [employer] for Shila Mcallister
[2022-04-05 00:34] VITALS: BP 91/64; PULSE 78; RESP 21; O2SAT 97
[2022-04-05 00:35] LABS: Basophils # 0.1 10^3/uL (0.0-0.1); Basophils % 1.2 %; Eosinophils # 0.1 10^3/uL (0.0-0.8); Eosinophils % 1.7 %; Hematocrit 40.2 % (37.0-47.0); Hemoglobin 13.9 g/dL (11.5-15.3); Lymphocytes # 1.6 10^3/uL (0.8-4.8); Lymphocytes % 40.1 %; Mean Corpuscular HGB Conc 34.6 g/dL (30.0-36.0); Mean Corpuscular Hemoglobin 38.6 pg (28.0-34.0); Mean Corpuscular Volume 111.7 fl (81-99); Mean Platelet Volume 11.3 fL (7.4-10.4); Monocytes # 0.3 10^3/uL (0.2-0.9); Monocytes % 6.2 %; Neutrophils # 2.05 10^3/uL (1.8-7.7); Neutrophils % 50.6 %; Nucleated Red Blood Cells % 0 %; Platelet Count 74 10^3/cmm (130-400); Red Cell Distribution Width 14.1 % (12.1-15.1); White Blood Count 4.1 10^3/uL (4.0-10.0)
[2022-04-05] MEDS: sodium chloride 0.9% 1,000 ML 999 ML IV (00:37)
[2022-04-05] MEDS: morphine 4 mg/mL SDV 1 mL IVP (00:37)
[2022-04-05] MEDS: ondansetron 2 mg/ML SDV 2 mL 4 MG IVP (00:37)
[2022-04-05 00:52] LABS: Alanine Aminotransferase 50 U/L (0-33); Albumin Level 4.4 g/dL (3.5-5.2); Alkaline Phosphatase 248 U/L (35-105); Anion Gap 24.5 (5-19); Aspartate Amino Transferase 230 U/L (0-32); Blood Urea Nitrogen 9 mg/dL (6-20); Calcium 9.4 mg/dL (8.5-10.5); Carbon Dioxide 20 mmol/L (22-29); Chloride 98 mmol/L (98-107); Creatinine Clr Calc Pharmacy 90.7501; Globulin 5.5 g/dL (1.3-4.6); Glomerular Filtration Rate 87.5 mL/min (90-130); Glucose 75 mg/dL (65-115); Lipase 50 U/L (13-60); Osmolality Calculated 285 mOsm/kg (285-295); Potassium 3.5 mmol/L (3.5-5.1); Sodium 139 mmol/L (136-145); Total Bilirubin 1.8 mg/dL (0.15-1.2); Total Protein 9.9 g/dL (6.6-8.7)
[2022-04-05 00:54] LABS: Alcohol Level 361 mg/dL (0-10)
[2022-04-05] MEDS: multivitamin therapeutic Tablet 1 TAB PO (02:23)
--- NOTE | 2022-04-05 03:44 | XRR_ITS ---
PROCEDURE INFORMATION: Exam: XR Chest Exam date and time: 04/05/2022 3:45 AM Age: 51 years old Clinical indication: Shortness of breath; Prior surgery; Surgery type: Cervical fusion; Patient HX: Increased hypoxia while in er. ; Additional info: SOB TECHNIQUE: Imaging protocol: Radiologic exam of the chest. Views: 1 view. COMPARISON: CR (CHEST, ) 01/14/2022 9:19 AM FINDINGS: Lungs: Unremarkable. No consolidation. Pleural spaces: Unremarkable. No pleural effusion. No pneumothorax. Heart/Mediastinum: Unremarkable. No cardiomegaly. Bones/joints: Unremarkable. Partially included lower cervical spine ACDF. XR/XR chest 1V portable [id number] IMPRESSION: No acute findings.
[2022-04-05 04:04] VITALS: BP 93/55; PULSE 83; RESP 17; O2SAT 93
[2022-04-05] MEDS: lidocaine 2% viscous 15 ML, aluminum-mag hydrox-simethicon 30 ML, sucralfate oral liq 1 GM PO ×2 (04:15→04:53)
[2022-04-05 05:05] VITALS: BP 98/70; PULSE 62; RESP 16; O2SAT 93
== END 2022-04-05 05:06 | disposition home or self-care (01) ==
PROVIDERS: Emergency Provider Emergency Medicine; PCP Family Medicine
DX: R56.9 Unspecified convulsions (principal); F10.129 Alcohol abuse with intoxication, unspecified; Y90.8 Blood alcohol level of 240 mg/100 ml or more; F17.210 Nicotine dependence, cigarettes, uncomplicated
CPT/HCPCS: 70450; 71045; 80053; 80307; 83690; 85025; 96365; 96375; 99285; J1953; J2270; J2405; J3411; J7030

== ENCOUNTER 2022-04-07 08:36 | Inpatient (IN) | payer MEDICAID, SELFPAY ==
[2022-04-07] VITALS (10 sets, daily range): BP systolic 76–139; BP diastolic 52–88; PULSE 118–137; RESP 14–20; TEMP 37.8–39.6; O2SAT 93–96; BMI 30.5
--- NOTE | 2022-04-07 09:11 | ED_ITS ---
Documented by User: ARLYN Finley 04/07/22 12:11 HPI - Abdominal Pain General: Chief Complaint: ER Hold Stated Complaint: abd pain Time Seen by Provider: 04/07/22 08:38 Source: patient Mode of arrival: ambulatory Limitations: no limitations History of Present Illness: Patient is a 51-year-old female with a history of alcohol use disorder, smoking, pancreatitis, liver cirrhosis/hepatomegaly, gastritis and GERD here with complaints of abdominal pain, nausea, vomiting, and some diarrhea. She is also reporting body aches/chills and arrives to ED with low grade fever at 100.1. Patient states she has a longstanding history of gastritis and states she takes carafate, omeprazole, and one other stomach medication daily. Patient states she has not drank in 4 days however she was just seen in our ED 2 days ago and was acutely intoxicated on that visit. Patient has no history of esophageal varices. She tells me she is vomiting a small amount of bright red blood and has had some dark stools (hemoccult two days ago was negative). MD elicited complaint: abdominal pain Pertinent past history: gastritis and other (pancreatitis) Onset (ago): day(s) Pain Consistency: constant Location: Diffuse Severity: severe Quality: cramping and aching Radiation: none Migration to: no migration Exacerbating factors: eating Relieving factors: nothing Associated Symptoms: Reports chills, diarrhea, fever(s) (low grade upon arrival at 100.1), hematemesis, melena, nausea and vomiting; Denies dysuria, hematochezia and hematuria Review of Systems Const: Reports: fever(s) (low grade upon arrival at 100.1), chills and body aches Card: Denies: chest pain Resp: Denies: dyspnea GI: Reports: abdominal pain, nausea, vomiting, hematemesis, diarrhea and melena; Denies: hematochezia : Denies: flank pain, dysuria, hematuria or pelvic pain Musc: Reports: back pain (chronic); Denies: neck pain, extremity pain, extremity swelling, joint pain or joint swelling Skin/Breast: Denies: rash Neuro: Denies: headache(s), numbness in extremities, weakness in extremities, sensory changes or dizziness PFS ED PFSH: Medical History (Updated 04/16/22 @ 00:01 by LISETH Norwood) Abdominal pain Abdominal pain Abdominal pain Acute dehydration Acute hypokalemia KATRIN (acute kidney injury) Alcohol dependence Alcohol dependence with withdrawal Alcohol use disorder Alcohol withdrawal Alcoholic gastritis Alcoholic hepatitis Alcoholic ketoacidosis Alcoholism Anemia Anxiety Carpal tunnel syndrome Chronic alcoholic hepatitis Chronic back pain Chronic pancreatitis Cirrhosis Enteritis Fracture of proximal phalanx of right thumb Gastritis GERD (gastroesophageal reflux disease) H. pylori infection Hepatitis A Hypokalemia Hypokalemia Hypomagnesemia Intractable nausea and vomiting Intractable nausea and vomiting Macrocytic anemia Nausea & vomiting Nausea and vomiting Pancytopenia Pancytopenia Sciatica Small bowel obstruction, partial Thrombocytopenia Tobacco dependency Urinary tract infection Surgical History H/O rotator cuff surgery H/O: hysterectomy History of appendectomy History of cholecystectomy Family History Denies family history of Diabetes CAD (coronary artery disease) Dementia Social History Smoking and tobacco status: current every day smoker Alcohol intake: current Alcohol intake frequency: 3 or more drinks per day Alcohol type: hard liquor Desire information about alcohol rehabilitation?: No Current occupation: On disability Physical Exam Const: COMMON NORMALS: patient oriented x3, no limitations and alert GENERAL APPEARANCE: cooperative and appears older than stated age ORIENTATION/CONSCIOUSNESS: Yes awake, Yes oriented to person, Yes oriented to place and Yes oriented to time HENMT: COMMON NORMALS: normocephalic and atraumatic HEAD & SCALP: normal to inspection, normocephalic and atraumatic Neck/C-Spine: COMMON NORMALS: full ROM, no lymphadenopathy and no meningeal signs Resp: COMMON NORMALS: normal respiratory effort and clear to auscultation bilaterally AUSCULTATION: clear to auscultation bilaterally Cardio: COMMON NORMALS: regular rhythm RATE: tachycardic RHYTHM: regular rhythm GI: AUSCULTATION: Yes normoactive bowel sounds PALPATION: Yes Tenderness to palpation present (GI) (diffusely), Yes Guarding due to palpation present (GI), No Rigid due to palpation and Yes Hepatomegaly present RECTAL EXAM: heme positive stool : COMMON NORMALS: Yes no CVA tenderness BLADDER/KIDNEY EXAM: Yes no CVA tenderness Back/Pelvis: COMMON NORMALS: no CVA tenderness Extremity: COMMON NORMALS: normal to inspection GENERAL: Yes normal exam except as noted Neuro: CAMILLE COMA SCALE: document GCS findings Camille coma scale eye opening: Spontaneous [place] coma scale verbal response: Orientated [place] coma scale motor response: Obey commands [place] coma scale total score: 15 COMMON NORMALS: patient oriented x3, moves all extremities, no focal motor deficits and no sensory deficits noted SENSORIUM/ORIENTATION: Yes alert, Yes oriented to person, Yes oriented to place and Yes oriented to time MENINGEAL SIGNS: Yes no meningeal signs Skin: COMMON NORMALS: no rashes or lesions noted GENERAL SKIN EXAM: no rashes or lesions noted Course Vital Signs: Vital signs: Vital Signs Temperature 98.3 F 04/15/22 07:51 Pulse Rate 89 04/15/22 07:51 Respiratory Rate 18 04/15/22 12:51 Blood Pressure 132/91 04/15/22 07:51 Pulse Oximetry 98 04/15/22 12:51 Oxygen Delivery Me thod 04/15/22 07:51 Oxygen Flow Rate 3 04/14/22 13:09 Fraction of Inspir ed Oxygen 98 04/13/22 11:37 MDM - Abdominal Pain Medical Decision Making Patient is a 51-year-old female with a history of chronic alcohol abuse here for abdominal pain, nausea, vomiting and some diarrhea. She endorses dark stools as well. She arrives here tachycardic with a low-grade fever. Patient's blood work shows a hemoglobin today of 10.6 compared to 13.9 two days ago. Hemoccult today was positive. CT scan showing distal ileitis with colitis. GI bleed could be secondary to this or upper GI/gastritis. She has no history of esophageal varices. Chemistry panel shows multiple metabolic derangements. She has a gap of 28.1. Lactic is 4.0. She has chronic elevations to her LFTs. I think at this time the most appropriate course would be hospitalization as she does appear much more acutely ill than she did during her visit 48 hours ago. I will speak to Dr. Talamantes who will also evaluate patient and speak to hospitalist. Lab Data 04/07/22 09:26 04/07/22 09:26 Labs/Radiology: Radiology Impressions KUB X-Ray 04/11/22 17:46 IMPRESSION: No acute findings. Abdomen/Pelvis CT 04/12/22 09:07 IMPRESSION: 1. Abnormal loop of distal small bowel, probably terminal ilium in the RIGHT lower quadrant. This abnormal loop is deep within the pelvis with loss of the normal mucosa and submucosal layers of the small bowel. Increasing edema and wall thickening. Increasing air within the lumen with loss of the normal architecture and increasing adjacent free fluid. Highly suspicious for ischemic changes involving the distal small bowel. There are changes of fecalization suggesting a long-term obstruction. High-grade stricture with ischemic changes. No underlying mass is identified by CT. 2. Increasing but small amount of ascites and small bilateral pleural effusions and anasarca. 3. Marked hepatic enlargement and changes of hepatic congestion. 4. Prior cholecystectomy. 5. Prior surgical anastomotic sutures in the region of the sigmoid of uncertain etiology. Notified Araceli Talavera MD at 04/12/2022 10:36 AM. Chest X-Ray 04/13/22 08:05 IMPRESSION: Properly positioned right arm PICC line. PICC line position was confirmed over the phone with the director of radiology at the time of imaging. Abdomen/Pelvis CTA 04/13/22 09:45 IMPRESSION: 1. No evidence for mesenteric ischemic disease. Aorta and mesenteric arteries are widely patent. No thrombus or stenosis. 2. New abnormal enhancement of the RIGHT kidney. Favor pyelonephritis as an etiology. Renal vein was normal on the prior study of 04/12/2022. 3. Small amount of ascites with mild improvement since 04/12/2022. 4. Abnormal loop of GI tract in the RIGHT lower quadrant persists. Improvement in the wall thickening thickening. No perforation. Laboratory Results WBC 10.1 10^3/uL (4.0-10.0) H 04/07/22 09:26 RBC 2.74 10^6/uL (4.1-5.3) L 04/07/22 09:26 Hgb 10.6 g/dL (11.5-15.3) L 04/07/22 09:26 Hct 30.3 % (37.0-47.0) L 04/07/22 09: MCV 110.6 fl (81-99) H 04/07/22 09:26 MCH 38.7 pg (28.0-34.0) H 04/07/22 09:26 MCHC 35.0 g/dL (30.0-36.0) 04/07/22 09: RDW 14.3 % (12.1-15.1) 04/07/22 09:26 Plt Count 40 10^3/cmm (130-400) L 04/07/22 09:26 MPV 12.0 fL (7.4-10.4) H 04/07/22 09:26 Neut % (Auto) 84.9 % 04/07/22 09: Lymph % (Auto) 7.5 % 04/07/22 09: [place] % (Auto) 6.1 % 04/07/22 09:26 Eos % (Auto) 0.1 % 04/07/22 09: Baso % (Auto) 0.5 % 04/07/22 09: Neut # (Auto) 8.59 10^3/uL (1.8-7.7) H 04/07/22 09:26 Lymph # (Auto) 0.8 10^3/uL (0.8-4.8) 04/07/22 09: [place] # (Auto) 0.6 10^3/uL (0.2-0.9) 04/07/22 09:26 Eos # (Auto) 0.0 10^3/uL (0.0-0.8) 04/07/22 09: Baso # (Auto) 0.1 10^3/uL (0.0-0.1) 04/07/22 09: Nucleated RBC % (auto) 0 % 04/07/22 09: Nucleated RBCs # 0.0 /100WBC 04/07/22 09:26 Sodium 132 mmol/L (136-145) L 04/07/22 09:26 Potassium 3.1 mmol/L (3.5-5.1) L 04/07/22 09:26 Chloride 93 mmol/L (98-107) L 04/07/22 09:26 Carbon Dioxide 14 mmol/L (22-29) L 04/07/22 09:26 Anion Gap 28.1 (5-19) H 04/07/22 09:26 BUN 9 mg/dL (6-20) 04/07/22 09:26 Creatinine 0.7 mg/dL (0.5-0.9) 04/07/22 09:26 GFR Calculation 87.5 mL/min (90-130) L 04/07/22 09:26 Glucose 78 mg/dL (65-115) 04/07/22 09:26 Calculated Osmolality 272 mOsm/kg (285-295) L 04/07/22 09:26 Lactic Acid 4.0 mmol/L (0.5-2.2) H 04/07/22 09:26 Lactic Acid (Sepsis) 3.3 mmol/L (0.5-2.2) H 04/07/22 12:54 Calcium 8.7 mg/dL (8.5-10.5) 04/07/22 09:26 Magnesium 0.9 mg/dL (1.7-2.3) L 04/07/22 09:26 Total Bilirubin 3.2 mg/dL (0.15-1.2) H 04/07/22 09:26 AST 133 U/L (0-32) H 04/07/22 09:26 ALT 35 U/L (0-33) H 04/07/22 09:26 Alkaline Phosphatase 199 U/L (35-105) H 04/07/22 09:26 Total Protein 8.1 g/dL (6.6-8.7) 04/07/22 09:26 Albumin 3.5 g/dL (3.5-5.2) 04/07/22 09:26 Globulin 4.6 g/dL (1.3-4.6) 04/07/22 09:26 Lipase 27 U/L (13-60) 04/07/22 09:26 Urine Color Dark yellow (Yellow) 04/07/22 12:10 Urine Appearance Hazy (CLEAR) A 04/07/22 12:10 Urine pH 6.5 (5-7) 04/07/22 12:10 Ur Specific [place] 1.005 (1.005-1.030) 04/07/22 12:10 Urine Protein 2+ (Negative) H 04/07/22 12:10 Urine Glucose (UA) Norm (Normal) 04/07/22 12:10 Urine Ketones 1+ (Negative) H 04/07/22 12:10 Urine Blood 3+ (Negative) H 04/07/22 12:10 Urine Nitrate Positive (Negative) H 04/07/22 12:10 Urine Bilirubin 1+ (Negative) H 04/07/22 12:10 Urine Urobilinogen 4+ mg/dL (Negative) H 04/07/22 12:10 Ur Leukocyte Esterase 1+ (Negative) H 04/07/22 12:10 Urine RBC 50-80 /hpf (0-2) H 04/07/22 12:10 Urine WBC 10-15 /hpf (0-5) H 04/07/22 12:10 Ur Squamous Epith Cells 0-4 /hpf (0-5) H 04/07/22 12:10 Amorphous Sediment Not Reportable 04/07/22 12:10 Urine Bacteria Trace /hpf (NONE) 04/07/22 12:10 Ethyl Alcohol 26 mg/dL (0-10) H 04/07/22 09:26 Discharge Plan Discharge Patient Disposition: Admitted As Inpatient Admit Provider: Rodo Ortega Clinical Impression: Ileitis, Colitis, Acidosis, lactic, Alcohol abuse, Thrombocytopenia, GI bleed Condition: Stable Discharge Diet: GI Soft Discharge Activity: Resume usual activity and Use walker/crutches as instructed Coding Level of Care Code ED Md Allergy Immunology for Chg Fwd Documented by User: Estuardo Talamantes MD 04/22/22 16:57 HPI - Abdominal Pain General: Chief Complaint: ER Hold Stated Complaint: abd pain Time Seen by Provider: 04/07/22 08:38 PFSH ED PFSH: Medical History (Updated 04/16/22 @ 00:01 by LISETH Norwood) Abdominal pain Abdominal pain Abdominal pain Acute dehydration Acute hypokalemia KATRIN (acute kidney injury) Alcohol dependence Alcohol dependence with withdrawal Alcohol use disorder Alcohol withdrawal Alcoholic gastritis Alcoholic hepatitis Alcoholic ketoacidosis Alcoholism Anemia Anxiety Carpal tunnel syndrome Chronic alcoholic hepatitis Chronic back pain Chronic pancreatitis Cirrhosis Enteritis Fracture of proximal phalanx of right thumb Gastritis GERD (gastroesophageal reflux disease) H. pylori infection Hepatitis A Hypokalemia Hypokalemia Hypomagnesemia Intractable nausea and vomiting Intractable nausea and vomiting Macrocytic anemia Nausea & vomiting Nausea and vomiting Pancytopenia Pancytopenia Sciatica Small bowel obstruction, partial Thrombocytopenia Tobacco dependency Urinary tract infection Surgical History H/O rotator cuff surgery H/O: hysterectomy History of appendectomy History of cholecystectomy Family History Denies family history of Diabetes CAD (coronary artery disease) Dementia Social History Smoking and tobacco status: current every day smoker Alcohol intake: current Alcohol intake frequency: 3 or more drinks per day Alcohol type: hard liquor Desire information about alcohol rehabilitation?: No Current occupation: On disability Physical Exam Neuro: CAMILLE COMA SCALE: document GCS findings [place] coma scale total s core: 15 Course Vital Signs: Vital signs: Vital Signs Temperature 98.3 F 04/15/22 07:51 Pulse Rate 89 04/15/22 07:51 Respiratory Rate 18 04/15/22 12:51 Blood Pressure 132/91 04/15/22 07:51 Pulse Oximetry 98 04/15/22 12:51 Oxygen Delivery Me thod 04/15/22 07:51 Oxygen Flow Rate 3 04/14/22 13:09 Fraction of Inspir ed Oxygen 98 04/13/22 11:37 MDM - Abdominal Pain Medical Decision Making Patient is a 51-year-old female with a history of chronic alcohol abuse here for abdominal pain, nausea, vomiting and some diarrhea. She endorses dark stools as well. She arrives here tachycardic with a low-grade fever. Patient's blood work shows a hemoglobin today of 10.6 compared to 13.9 two days ago. Hemoccult today was positive. CT scan showing distal ileitis with colitis. GI bleed could be secondary to this or upper GI/gastritis. She has no history of esophageal varices. Chemistry panel shows multiple metabolic derangements. She has a gap of 28.1. Lactic is 4.0. She has chronic elevations to her LFTs. I think at this time the most appropriate course would be hospitalization as she does appear much more acutely ill than she did during her visit 48 hours ago. I will speak to Dr. Talamantes who will also evaluate patient and speak to hospitalist. I discussed this case with Delmy Gonzalez. I reviewed documentation, labs, imaging. I personally saw and evaluated the patient and reperformed angel portions of E/M. The results of ED evaluation were discussed with the patient including plan for admission due to requirement for level of care not available if discharged to prevent significant worsening/deterioration. Patient agreeable with plan. Discussed with hospitalist service who was agreeable to admit patient. Estuardo Talamantes MD Emergency Medicine Lab Data 04/07/22 09:26 04/07/22 09:26 Labs/Radiology: Radiology Impressions KUB X-Ray 04/11/22 17:46 IMPRESSION: No acute findings. Abdomen/Pelvis CT 04/12/22 09:07 IMPRESSION: 1. Abnormal loop of distal small bowel, probably terminal ilium in the RIGHT lower quadrant. This abnormal loop is deep within the pelvis with loss of the no rmal mucosa and submucosal layers of the small bowel. Increasing edema and wall thickening. Increasing air within the lumen with loss of the normal architecture and increasing adjacent free fluid. Highly suspicious for ischemic changes involving the distal small bowel. There are changes of fecalization suggesting a long-term obstruction. High-grade stricture with ischemic changes. No underlying mass is identified by CT. 2. Increasing but small amount of ascites and small bilateral pleural effusions and anasarca. 3. Marked hepatic enlargement and changes of hepatic congestion. 4. Prior cholecystectomy. 5. Prior surgical anastomotic sutures in the region of the sigmoid of uncertain etiology. Notified Araceli Talavera MD at 04/12/2022 10:36 AM. Chest X-Ray 04/13/22 08:05 IMPRESSION: Properly positioned right arm PICC line. PICC line position was confirmed over the phone with the director of radiology at the time of imaging. Abdomen/Pelvis CTA 04/13/22 09:45 IMPRESSION: 1. No evidence for mesenteric ischemic disease. Aorta and mesenteric arteries are widely patent. No thrombus or stenosis. 2. New abnormal enhancement of the RIGHT kidney. Favor pyelonephritis as an etiology. Renal vein was normal on the prior study of 04/12/2022. 3. Small amount of ascites with mild improvement since 04/12/2022. 4. Abnormal loop of GI tract in the RIGHT lower quadrant persists. Improvement in the wall thickening thickening. No perforation. Laboratory Results WBC 10.1 10^3/uL (4.0-10.0) H 04/07/22 09:26 RBC 2.74 10^6/uL (4.1-5.3) L 04/07/22 09:26 Hgb 10.6 g/dL (11.5-15.3) L 04/07/22 09:26 Hct 30.3 % (37.0-47.0) L 04/07/22 09: MCV 110.6 fl (81-99) H 04/07/22 09:26 MCH 38.7 pg (28.0-34.0) H 04/07/22 09: MCHC 35.0 g/dL (30.0-36.0) 04/07/22 09: RDW 14.3 % (12.1-15.1) 04/07/22 09: Plt Count 40 10^3/cmm (130-400) L 04/07/22 09: MPV 12.0 fL (7.4-10.4) H 04/07/22 09:26 Neut % (Auto) 84.9 % 04/07/22 09: Lymph % (Auto) 7.5 % 04/07/22 09: [place] % (Auto) 6.1 % 04/07/22 09: Eos % (Auto) 0.1 % 04/07/22 09: Baso % (Auto) 0.5 % 04/07/22 09: Neut # (Auto) 8.59 10^3/uL (1.8-7.7) H 04/07/22 09: Lymph # (Auto) 0.8 10^3/uL (0.8-4.8) 04/07/22 09:26 [place] # (Auto) 0.6 10^3/uL (0.2-0.9) 04/07/22 09: Eos # (Auto) 0.0 10^3/uL (0.0-0.8) 04/07/22 09: Baso # (Auto) 0.1 10^3/uL (0.0-0.1) 04/07/22 09: Nucleated RBC % (auto) 0 % 04/07/22 09: Nucleated RBCs # 0.0 /100WBC 04/07/22 09:26 Sodium 132 mmol/L (136-145) L 04/07/22 09:26 Potassium 3.1 mmol/L (3.5-5.1) L 04/07/22 09:26 Chloride 93 mmol/L (98-107) L 04/07/22 09:26 Carbon Dioxide 14 mmol/L (22-29) L 04/07/22 09:26 Anion Gap 28.1 (5-19) H 04/07/22 09:26 BUN 9 mg/dL (6-20) 04/07/22 09:26 Creatinine 0.7 mg/dL (0.5-0.9) 04/07/22 09:26 GFR Calculation 87.5 mL/min (90-130) L 04/07/22 09:26 Glucose 78 mg/dL (65-115) 04/07/22 09:26 Calculated Osmolality 272 mOsm/kg (285-295) L 04/07/22 09:26 Lactic Acid 4.0 mmol/L (0.5-2.2) H 04/07/22 09:26 Lactic Acid (Sepsis) 3.3 mmol/L (0.5-2.2) H 04/07/22 12:54 Calcium 8.7 mg/dL (8.5-10.5) 04/07/22 09:26 Magnesium 0.9 mg/dL (1.7-2.3) L 04/07/22 09:26 Total Bilirubin 3.2 mg/dL (0.15-1.2) H 04/07/22 09:26 AST 133 U/L (0-32) H 04/07/22 09:26 ALT 35 U/L (0-33) H 04/07/22 09:26 Alkaline Phosphatase 199 U/L (35-105) H 04/07/22 09:26 Total Protein 8.1 g/dL (6.6-8.7) 04/07/22 09:26 Albumin 3.5 g/dL (3.5-5.2) 04/07/22 09:26 Globulin 4.6 g/dL (1.3-4.6) 04/07/22 09:26 Lipase 27 U/L (13-60) 04/07/22 09:26 Urine Color Dark yellow (Yellow) 04/07/22 12:10 Urine Appearance Hazy (CLEAR) A 04/07/22 12:10 Urine pH 6.5 (5-7) 04/07/22 12:10 Ur Specific [place] 1.005 (1.005-1.030) 04/07/22 12:10 Urine Protein 2+ (Negative) H 04/07/22 12:10 Urine Glucose (UA) Norm (Normal) 04/07/22 12:10 Urine Ketones 1+ (Negative) H 04/07/22 12:10 Urine Blood 3+ (Negative) H 04/07/22 12:10 Urine Nitrate Positive (Negative) H 04/07/22 12:10 Urine Bilirubin 1+ (Negative) H 04/07/22 12:10 Urine Urobilinogen 4+ mg/dL (Negative) H 04/07/22 12:10 Ur Leukocyte Esterase 1+ (Negative) H 04/07/22 12:10 Urine RBC 50-80 /hpf (0-2) H 04/07/22 12:10 Urine WBC 10-15 /hpf (0-5) H 04/07/22 12:10 Ur Squamous Epith Cells 0-4 /hpf (0-5) H 04/07/22 12:10 Amorphous Sediment Not Reportable 04/07/22 12:10 Urine Bacteria Trace /hpf (NONE) 04/07/22 12:10 Ethyl Alcohol 26 mg/dL (0-10) H 04/07/22 09:26 Discharge Plan Discharge Patient Disposition: Admitted As Inpatient Admit Provider: Rodo Ortega Clinical Impression: Ileitis, Colitis, Acidosis, lactic, Alcohol abuse, Thrombocytopenia, GI bleed Condition: Stable Discharge Diet: GI Soft Discharge Activity: Resume usual activity and Use walker/crutches as instructed Coding Level of Care Code ED Md Allergy Immunology for Shila Mcallister
--- NOTE | 2022-04-07 09:22 | XR_ITS ---
WS: [id number] Exam: XR chest 1V portable [id number] Date/Time of Exam: 04/07/2022 10:08 AM Reason For Exam: fevers Comparison 04/05/2022. The lungs are clear and fully inflated. Normal cardiomediastinal silhouette. No pleural effusions not ed. Fusion hardware seen in the lower C-spine. Several right rib fractures. XR/XR chest 1V portable [id number] IMPRESSION: 1. No acute process noted.
--- NOTE | 2022-04-07 09:25 | CT_ITS ---
WS: [id number] CT ABDOMEN PELVIS TECHNIQUE: Contrast-enhanced CT of the abdomen and pelvis with coronal and sagittal reformatted image s. CLINICAL INFORMATION: ab pain, N/V/D, fevers COMPARISON: February 26, 2022 DLP: 667.[address] scans at [facility] [place] use at least one of these dose optimization techniques: automated e xposure control; mA and/or kV adjustment per patient size (includes targeted exams where dose is matc hed to clinical indication); or iterative reconstruction. FINDINGS:Inflammatory stranding and edema about the RIGHT kidney. Correlation for pyelonephritis. Uro thelial enhancement in the RIGHT ureter. No obstructing RIGHT renal or ureteral calculi. Mucosal enhancement with edema and induration involving the terminal ileum. A few fluid-filled slight ly dilated loops of small bowel in the LEFT abdomen and pelvis. Mild thickening involving the RIGHT c olon and proximal transverse colon suspicious for colitis. Prior postoperative changes anastomosis si gmoid colon. Hepatomegaly with diffuse fatty infiltration liver. Normal portal vein and splenic vein. Prior cholec ystectomy. Stable dilatation of the common bile duct with prior postcholecystectomy. Normal spleen. S mall esophageal hiatal hernia. Lung bases are well aerated. Normal caliber abdominal aorta. Celiac and SMA are patent. SMV is patent. Adrenal glands are normal. Small amount of free fluid in the pelvis. Mucosal enhancement involving the terminal ileum. A few fluid-filled slightly dilated loops of small bowel in the LEFT abdomen and pelvis. A few small wall thickening involving the RIGHT colon and proxi mal transverse colon suspicious for colitis. Prior postoperative changes anastomosis sigmoid colon. CT/CT abdomen pelvis w con* [id number] IMPRESSION: 1. Distal ileitis with colitis involving the RIGHT colon and proximal transver se colon. Small amount of free fluid in the pelvis. 2. A few loops of fluid distended small bowel in the LEFT abdomen and pelvis. No evidence of high-grade obstruction. 3. Mild inflammatory stranding and edema about the RIGHT kidney with urothelia l enhancement suspicious for pyelonephritis. No obstructing renal or ureteral c alculi. 4. Hepatomegaly diffuse fatty infiltration liver. 5. Small esophageal hiatal hernia. 6. Prior cholecystectomy with stable dilatation of the common bile duct.
[2022-04-07 09:38] LABS: Basophils # 0.1 10^3/uL (0.0-0.1); Basophils % 0.5 %; Eosinophils % 0.1 %; Hematocrit 30.3 % (37.0-47.0); Hemoglobin 10.6 g/dL (11.5-15.3); Lymphocytes # 0.8 10^3/uL (0.8-4.8); Lymphocytes % 7.5 %; Mean Corpuscular Hemoglobin 38.7 pg (28.0-34.0); Mean Corpuscular Volume 110.6 fl (81-99); Monocytes # 0.6 10^3/uL (0.2-0.9); Monocytes % 6.1 %; Neutrophils # 8.59 10^3/uL (1.8-7.7); Neutrophils % 84.9 %; Nucleated Red Blood Cells % 0 %; Platelet Count 40 10^3/cmm (130-400); Red Blood Count 2.74 10^6/uL (4.1-5.3); Red Cell Distribution Width 14.3 % (12.1-15.1); White Blood Count 10.1 10^3/uL (4.0-10.0)
[2022-04-07 09:58] LABS: Alanine Aminotransferase 35 U/L (0-33); Albumin Level 3.5 g/dL (3.5-5.2); Alkaline Phosphatase 199 U/L (35-105); Anion Gap 28.1 (5-19); Aspartate Amino Transferase 133 U/L (0-32); Blood Urea Nitrogen 9 mg/dL (6-20); Calcium 8.7 mg/dL (8.5-10.5); Carbon Dioxide 14 mmol/L (22-29); Chloride 93 mmol/L (98-107); Globulin 4.6 g/dL (1.3-4.6); Glomerular Filtration Rate 87.5 mL/min (90-130); Glucose 78 mg/dL (65-115); Lipase 27 U/L (13-60); Osmolality Calculated 272 mOsm/kg (285-295); Potassium 3.1 mmol/L (3.5-5.1); Sodium 132 mmol/L (136-145); Total Bilirubin 3.2 mg/dL (0.15-1.2); Total Protein 8.1 g/dL (6.6-8.7)
[2022-04-07] MEDS: sodium chloride 0.9% 1,000 ML 999 ML IV ×3 (10:21→22:32)
[2022-04-07] MEDS: pantoprazole 40 mg SDV IVP ×2 (10:22→16:19)
[2022-04-07] MEDS: ondansetron 2 mg/ML SDV 2 mL 4 MG IVP ×2 (10:23→17:26)
[2022-04-07] MEDS: morphine 4 mg/mL SDV 1 mL IVP (10:24)
[2022-04-07 10:32] LABS: Alcohol Level 26 mg/dL (0-10)
[2022-04-07 10:35] LABS: Magnesium 0.9 mg/dL (1.7-2.3)
--- NOTE | 2022-04-07 10:50 | PC.PHAR ---
PT AND PTS VERIFIED PTS MEDICATIONS-STATES THE PT STOP TAKING ALL OTHER MEDS EXCEPT THE MEDICATIONS ENTERED-STATES THEY HAVENT PICKED UP THE KEPPRA UP FROM THE PHARMACY YET
[2022-04-07] MEDS: iohexol 350 mg/mL 500 mL Btl (per mL) IV (10:59)
[2022-04-07] MEDS: potassium chloride premix 100 ML 50 MEQ IV (11:11)
[2022-04-07 11:21] LABS: Reflex Lactate Order REFLEX LACTIC ORDERD
[2022-04-07] MEDS: metoclopramide 5 mg/mL SDV 2 mL 10 MG IVP (12:36)
[2022-04-07] MEDS: metroNIDAZOLE IV 500 MG/100 ML PREMIX 100 MG IV (12:37)
--- NOTE | 2022-04-07 12:57 | P.HP_ITS ---
Providers/Chief Complaint Primary Care Provider: Aditya Degroot DO Chief Complaint: abd pain History of Present Illness Melissa Portillo is a 51 year old female with PMH of cirrhosis, EtOH abuse, pancreatitis, varices, who presented to ER today with fever, abdominal pain, n/v and blood in stool. Significant other is present to assist with history. Reports symptoms starting 2 days ago, with N/V, followed by fever. She was seen in ER 2 days prior with abdominal cramping and EtOH intoxication. At that time, her EtOH level was over 300. She endorses having some blood in her stool for several days as well as hematemesis this morning. She says that she has been unable to eat or drink for the last 12 hours. In the ER, she was noted to have a temperature of 100.1 and was tachycardic into the 120-130's. Labs show WBC of 10.1, up from 4.1 two days prior. She is chronically anemic with Hgb at 10.6 today. Na down to 132, K at 3.1. She has an elevated Lactate to 4.0, transaminitis, and metabolic acidosis, anion gap to 28.1. CT scan demonstrated a Distal ileitis with colitis of the right and proximal transverse colon. Distal ileitis with colitis of the right and proximal transverse colon, and small amount of free fluid in pelvis, but no other ascites. Also of note was some stranding around the Right kidney suggestive of pyelonephritis. She was started on prophylactic Abx and given IVF's. Review of Systems General: Reports: 10 or more systems reviewed and unremarkable except in HPI and below Medications/Allergies Home Medications Medication Instructions Recorded Confirmed Last Taken Type omeprazole 40 mg capsule,delayed 40 mg PO BID 10/18/21 04/07/22 01/13/22 History release levetiracetam 500 mg tablet 500 mg PO BID #60 tabs 04/05/22 04/07/22 Unknown Rx (Keppra) albuterol sulfate 90 mcg/actuation 2 puff inhalation Q6H PRN 04/07/22 04/07/22 Unknown History aerosol inhaler Shortness Of Breath aspirin 325 mg tablet 325 mg PO BID PRN Chest Pain 04/07/22 04/07/22 Unknown History sucralfate 1 gram tablet 1 g PO .UP TO BID 04/07/22 04/07/22 Unknown History Allergies Allergy/AdvReac Type Severity Reaction Status Date / Time codeine Allergy ALGY-Hives Verified 04/07/22 10:42 ketorolac [From Toradol] Allergy ALGY-Rash Verified 04/07/22 10:42 naproxen [From Naprosyn] Allergy ADR-Vomitin Verified 04/07/22 10:42 g prochlorperazine Allergy ALGY-Swell Verified 04/07/22 10:42 [From Compazine] Lip/Tongue/Throat Penicillins AdvReac Intermediate ADR-Vomitin Verified 04/07/22 10:42 g PFSH Acute PFSH: Medical History Abdominal pain Abdominal pain Abdominal pain Acute dehydration Acute hypokalemia KATRIN (acute kidney injury) Alcohol dependence Alcohol dependence with withdrawal Alcohol use disorder Alcohol withdrawal Alcoholic gastritis Alcoholic hepatitis Alcoholic ketoacidosis Alcoholism Anemia Anxiety Carpal tunnel syndrome Chronic alcoholic hepatitis Chronic back pain Chronic pancreatitis Cirrhosis Enteritis Fracture of proximal phalanx of right thumb Gastritis GERD (gastroesophageal reflux disease) H. pylori infection Hepatitis A Hypokalemia Hypokalemia Hypomagnesemia Intractable nausea and vomiting Intractable nausea and vomiting Macrocytic anemia Nausea & vomiting Nausea and vomiting Pancytopenia Pancytopenia Sciatica Small bowel obstruction, partial Thrombocytopenia Tobacco dependency Urinary tract infection Surgical History H/O rotator cuff surgery H/O: hysterectomy History of appendectomy History of cholecystectomy Family History Denies family history of Diabetes CAD (coronary artery disease) Dementia Social History Smoking and tobacco status: current every day smoker Alcohol intake: current Alcohol intake frequency: 3 or more drinks per day Alcohol type: hard liquor Desire information about alcohol rehabilitation?: No Current occupation: On disability Vitals/I&O/Wt Last Vital Signs Temp 100.1 F H 04/07/22 08:42 Pulse 118 H 04/07/22 11:30 Resp 16 04/07/22 11:30 BP 125/83 04/07/22 11:30 Pulse Ox 93 04/07/22 11:30 O2 Del Method 04/07/22 11:30 04/06/22 04/07/22 04/07/22 22:59 06:59 14:59 Intake Total Balance Physical Exam Narrative: General: Cooperative patient, ill appearing and uncomfortable. HEENT: Normocephalic, Atraumatic. External ears normal. Nasal passages patent without drainage. MMM. Heart: Tachycardic, regular rhythm. No R,G,M. Resp: Mild crackles throughout the lung butts with diminished air movement. Abd: Soft, Tender throughout the abdomen. No obvious fluid waves or point tenderness noted. Extremities: No edema. Skin: No rash or lesions on exposed areas. Data 04/07/22 09:26 04/07/22 09:26 Micro: Microbiology 04/07/22 10:05 Blood Culture - Preliminary Blood SPECIMEN COLLECTED 04/07/22 09:26 Blood Culture - Preliminary Blood SPECIMEN COLLECTED A&P Assessment and plan (1) Sepsis: (2) Colitis: (3) Acidosis, lactic: (4) Alcohol abuse: (5) Thrombocytopenia: (6) Hypomagnesemia: (7) Elevated bilirubin: (8) Ileitis: (9) Anemia: (10) Pyelonephritis: Plan Melissa Portillo is a 51 year old female with PMH of cirrhosis, EtOH abuse, pancreatitis, varices, who presented to ER today with fever, abdominal pain, n/v and blood in stool. Admitted for sepsis, colitis, possible pyelonephritis. Admit to [facility] for close inpatient monitoring. Currently febrile to 100.1 and tachycardic to 118. SOFA score 4. Lactate elevated to 4. WIll recheck after IVF's. CT demonstrates Colitis, and likely pyelo. UA positive for Nitrates appears consistent with infection. Blood and urine cultures pending. CIWA protocol. EtOH was 26 on admission. 361 two days prior. Magnesium down to 0.9. Received replacement in the ER. Will recheck with am labs. K down to 3.2. Received replacement in ER and will recheck in am. No obvious SBP at this time, though she does have cirrhosis and severe thrombocytopenia. Continue Cipro, Flagyl to cover colitis and pyelo. Can de-escalate pending cultu res. Received 1L bolus in ER. Pressures are stable. Continue NS @ 75. Chronic Macrocytic anemia. Currently is near her baseline at 10.6. Platelets are donw to 40, which is lower than her norm. Will add Protonix for GIPPX. Hold on anticoagulation due to thrombocytopenia. SCD's for DVT PPx. Continue Zofran and Reglan for N/V. Clear liquid diet for now. Hold other home medications at this time. Code Status: Full IVF: NS @ 75 DVT PPx: SCD's GI PPx: Protonix ABx: Flagyl, Cipro Diet: Clear Disposition: MedSurg Discharge plan: Home when stable. Attestations Medical Necessity Statement*: We will need close inpatient monitoring for infectious colitis, pyelonephritis and management of sepsis. Coding Level of Care Code Acute Code for Chg Fwd Moderate MDM includes number and complexity of problems actively addressed during encounter, amount and/or complexity of data reviewed/ordered and described risk of complication, morbidity or mortality of management as documented Diagnoses Sepsis A41.9 Colitis K52.9 Acidosis, lactic E87.20 Alcohol abuse F10.10 Thrombocytopenia D69.6 Hypomagnesemia E83.42 Elevated bilirubin R17 Ileitis K52.9 Anemia D64.9 Pyelonephritis N12
[2022-04-07 13:00] LABS: Blood Urine 3+ (Negative); Glucose Urine UA Norm (Normal); Ketones Urine 1+ (Negative); Nitrate Urine Positive (Negative); Protein Urine 2+ (Negative); Specific Gravity, Urine 1.005 (1.005-1.030); Urine Appearance Hazy (CLEAR); Urine Color Dark Yellow (Yellow); pH Urine 6.5 (5-7)
[2022-04-07 13:01] LABS: Add Urine Microscopic? YES; Bilirubin Urine 1+ (Negative); Leukocyte Esterase Urine 1+ (Negative)
[2022-04-07 13:02] LABS: Bacteria Urine TRACE /hpf; RBC Urine 50-80 /hpf (0-2); Squamous Epithelial Cell Urine 0-4 /hpf (0-5); Urobilinogen Urine 4+ mg/dL (Negative)
[2022-04-07 13:03] LABS: Add Urine Culture? Yes
[2022-04-07 13:29] LABS: Lactic Acid level (Lactate) 3.3 mmol/L (0.5-2.2)
--- NOTE | 2022-04-07 14:31 | PC.NURSE ---
spoke with pharmacy regarding ciprofoxacin order, dose requiring use of 2 premix bags over length of 1 hour. per pharmacy, run each bag over 30 minutes to total dose infusion over 1 hour
--- NOTE | 2022-04-07 15:15 | PC.NURSE ---
IV right upper arm infiltrated, dc'd with catheter intact
[2022-04-07] MEDS: acetaminophen 325 mg Tablet 650 MG PO (16:20)
[2022-04-07] MEDS: acetaminophen 1,000 MG/100 ML PIGGYBACK 400 MG IV (17:26)
[2022-04-07] MEDS: sodium chloride 0.9% 1,000 ML 75 ML IV (17:26)
[2022-04-07] MEDS: LORazepam 2 mg/mL INJ 1 mL IVP (17:26)
[2022-04-07] MEDS: ciprofloxacin 400 MG/200 ML PREMIX 200 MG IV (17:27)
[2022-04-07] MEDS: piperacillin-tazobactam 3.375 GM in sodium chloride 0.9% (plus) 50 ML IV (23:43)
[2022-04-08] VITALS (17 sets, daily range): BP systolic 92–128; BP diastolic 47–76; PULSE 95–135; RESP 17–28; TEMP 36.8–39.2; O2SAT 90–96
--- NOTE | 2022-04-08 00:31 | PM.MISC ---
Miscellaneous Note Note: Patient was experiencing persistent temperature spike with noted Tmax of 102.5, she was also severely hypotensive, tachycardic, received 1.5 L normal saline bolus, was also started on maintenance IV fluid at 125 cc an hour, antibiotic coverage was switched to Zosyn, metronidazole was discontinued, so far her map has shown improvement, if she continued to be persistently hypotensive with MAP less than 65, she will need to be transferred to ICU, for initiation of vasopressors. For now we will continue to monitor her on the floor. Continue telemetry monitoring.
[2022-04-08] MEDS: sodium chloride 0.9% 500 ML IV (00:52)
[2022-04-08] MEDS: acetaminophen 1,000 MG/100 ML PIGGYBACK 400 MG IV (00:55)
[2022-04-08] MEDS: ondansetron 2 mg/ML SDV 2 mL 4 MG IVP ×2 (02:15→20:55)
[2022-04-08] MEDS: pantoprazole 40 mg SDV IVP ×2 (02:15→13:45)
[2022-04-08] MEDS: sodium chloride 0.9% 1,000 ML 125 ML IV ×2 (04:31→21:43)
[2022-04-08 05:01] LABS: Basophils % 0.3 %; Hematocrit 23.8 % (37.0-47.0); Lymphocytes # 0.5 10^3/uL (0.8-4.8); Lymphocytes % 8.7 %; Mean Corpuscular HGB Conc 33.6 g/dL (30.0-36.0); Mean Corpuscular Hemoglobin 38.6 pg (28.0-34.0); Mean Platelet Volume 12.1 fL (7.4-10.4); Monocytes # 0.5 10^3/uL (0.2-0.9); Monocytes % 7.9 %; Neutrophils % 78.6 %; Nucleated Red Blood Cells % 0 %; Platelet Count 32 10^3/cmm (130-400); Red Blood Count 2.07 10^6/uL (4.1-5.3); Red Cell Distribution Width 14.5 % (12.1-15.1)
[2022-04-08 05:20] LABS: Lactic Sepsis W/Reflex 2.3 mmol/L (0.5-2.2)
[2022-04-08 05:33] LABS: Procalcitonin 13.72 ng/mL (0-0.5)
[2022-04-08 05:45] LABS: Alanine Aminotransferase 27 U/L (0-33); Albumin Level 2.7 g/dL (3.5-5.2); Alkaline Phosphatase 91 U/L (35-105); Anion Gap 17.9 (5-19); Aspartate Amino Transferase 78 U/L (0-32); Blood Urea Nitrogen 9 mg/dL (6-20); C Reactive Protein 104.9 mg/L (0.0-4.9); Calcium 7.3 mg/dL (8.5-10.5); Carbon Dioxide 15 mmol/L (22-29); Chloride 102 mmol/L (98-107); Globulin 3.3 g/dL (1.3-4.6); Glucose 61 mg/dL (65-115); Osmolality Calculated 271 mOsm/kg (285-295); Sodium 132 mmol/L (136-145); Total Bilirubin 3.4 mg/dL (0.15-1.2)
[2022-04-08 05:49] LABS: Potassium 2.9 mmol/L (3.5-5.1)
[2022-04-08] MEDS: piperacillin-tazobactam 3.375 GM in sodium chloride 0.9% (plus) 50 ML IV ×3 (05:53→23:12)
[2022-04-08 06:00] LABS: Slide Review Slide Review Perform
[2022-04-08 06:43] LABS: Reflex Lactate Order REFLEX LACTIC ORDERD
[2022-04-08] MEDS: lidocaine 1% 5 ML in potassium chloride premix 100 ML 26.25 ML IV (06:55)
[2022-04-08 08:22] LABS: Lactic Acid level (Lactate) 2.8 mmol/L (0.5-2.2)
[2022-04-08 09:35] LABS: Phosphorus 1.7 mg/dL (2.5-4.5)
[2022-04-08 09:39] LABS: Magnesium 0.9 mg/dL (1.7-2.3)
[2022-04-08] MEDS: morphine 4 mg/mL SDV 1 mL 1 MG IVP (10:11)
[2022-04-08] MEDS: acetaminophen 325 mg Tablet 650 MG PO ×2 (12:41→22:03)
[2022-04-08] MEDS: oxyCODONE 5 mg IR Tab/Cap PO ×2 (12:41→21:46)
--- NOTE | 2022-04-08 12:52 | P.PN_ITS ---
Subjective Subjective: Continues to have abdominal pain. She thinks it may be slightly better than yesterday. She has had continued fevers and slightly elevated heart rate overnight per nursing. Antibiotics were switched to Zosyn. Was noted that she had positive blood cultures with E. coli in 3 out of 4. Vitals/I&O/Wt Last Vital Signs Temp 99.2 F 04/08/22 12:00 Pulse 125 H 04/08/22 12:00 Resp 19 H 04/08/22 12:41 BP 105/56 04/08/22 12:00 Pulse Ox 94 04/08/22 12:00 O2 Del Method 04/08/22 10:03 04/07/22 04/08/22 04/08/22 22:59 06:59 14:59 Intake Total 2882.5 / 2934.5 2267.5 / 5202.0 118.958 / 118.958 Balance 2882.5 / 2934.5 2267.5 / 5202.0 118.958 / 118.958 Weight last 48 hrs Weight 178 lb Physical Exam Narrative: General: Cooperative patient, ill appearing and uncomfortable. HEENT: Normocephalic, Atraumatic. External ears normal. Nasal passages patent without drainage. MMM. Heart: Tachycardic, regular rhythm. No R,G,M. Resp: Mild crackles throughout the lung butts with diminished air movement. Abd: Soft, Tender throughout the abdomen. No obvious fluid waves or point tend erness noted. Extremities: No edema. Skin: No rash or lesions on exposed areas. Data 04/08/22 04:45 04/08/22 04:45 Micro: Microbiology 04/07/22 12:10 Urine Culture - Preliminary Urine,Clean Catch Gram Negative Rods 04/07/22 10:05 Blood Culture - Preliminary Blood Escherichia coli 04/07/22 09:26 Blood Culture - Preliminary Blood NEGATIVE TO DATE A&P Assessment and plan (1) Sepsis: (2) Colitis: (3) Acidosis, lactic: (4) Alcohol abuse: (5) Thrombocytopenia: (6) Hypomagnesemia: (7) Elevated bilirubin: (8) Ileitis: (9) Anemia: (10) Pyelonephritis: Plan Melissa Portillo is a 51 year old female with PMH of cirrhosis, EtOH abuse, pancreatitis, varices, who presented to ER today with fever, abdominal pain, n/v and blood in stool. Admitted for sepsis, colitis, possible pyelonephritis. Continue close inpatient monitoring. Remains slightly tachycardic. Her fevers have improved. Blood pressure remains stable CT demonstrates Colitis, and likely pyelo. Blood cultures positive with E. coli 3/4. She was switched to Zosyn last night. Urine cultures are growing gram-negative rods. This may be the source of her infection. She does however have findings consistent with colitis on CT. her urinary output has been improved. CIWA protocol. EtOH was 26 on admission. 361 two days prior. Magnesium remains at 0.9. Will retreat and recheck. Lactate down to 2.3 from 4.0. CRP was elevated to 104.9. Procalcitonin 13.7. Received potassium replacement yesterday, however her potassium level dipped to 2.9. We will replace and recheck again today. No obvious SBP at this time, though she does have cirrhosis and severe thrombocytopenia. Received 1L bolus in ER. Pressures are stable. Continue NS @ 75. Chronic Macrocytic anemia. Currently is near her baseline at 10.6. Platelets are down to 32 which is lower than her norm. Phosphorus was low to 1.7. We will replace and recheck. Will add Protonix for GIPPX. Hold on anticoagulation due to thrombocytopenia. SCD's for DVT PPx. Continue Zofran and Reglan for N/V. Add oxycodone for pain relief. Clear liquid diet for now. Most likely advance diet tomorrow. Hold other home medications at this time. Code Status: Full IVF: NS @ 75 DVT PPx: SCD's GI PPx: Protonix ABx: Flagyl, Cipro Diet: Clear Disposition: MedSurg Discharge plan: Home when stable. Attestations Medical Necessity Statement*: We will need close inpatient monitoring for infectious colitis, pyelonephritis and management of sepsis. Coding Level of Care Code Acute Code for Chg Fwd Moderate MDM includes number and complexity of problems actively addressed during encounter, amount and/or complexity of data reviewed/ordered and described risk of complication, morbidity or mortality of management as documented Diagnoses Sepsis A41.9 Colitis K52.9 Acidosis, lactic E87.20 Alcohol abuse F10.10 Thrombocytopenia D69.6 Hypomagnesemia E83.42 Elevated bilirubin R17 Ileitis K52.9 Anemia D64.9 Pyelonephritis N12
[2022-04-08] MEDS: phosphorus 250 mg Tablet PO (17:29)
[2022-04-09] VITALS (11 sets, daily range): BP systolic 124–166; BP diastolic 67–87; PULSE 96–121; RESP 16–18; TEMP 36.6–37.6; O2SAT 97–98
[2022-04-09] MEDS: pantoprazole 40 mg SDV IVP ×2 (01:51→13:34)
[2022-04-09] MEDS: piperacillin-tazobactam 3.375 GM in sodium chloride 0.9% (plus) 50 ML IV ×3 (06:19→23:42)
[2022-04-09] MEDS: oxyCODONE 5 mg IR Tab/Cap PO ×3 (06:20→20:27)
[2022-04-09] MEDS: sodium chloride 0.9% 1,000 ML 125 ML IV (06:26)
[2022-04-09 08:44] LABS: Basophils % 0.6 %; Eosinophils % 0.2 %; Hematocrit 30.3 % (37.0-47.0); Hemoglobin 9.5 g/dL (11.5-15.3); Lymphocytes # 0.6 10^3/uL (0.8-4.8); Lymphocytes % 11.9 %; Mean Corpuscular HGB Conc 31.4 g/dL (30.0-36.0); Mean Corpuscular Hemoglobin 38.9 pg (28.0-34.0); Mean Corpuscular Volume 124.2 fl (81-99); Mean Platelet Volume 13.2 fL (7.4-10.4); Monocytes # 0.5 10^3/uL (0.2-0.9); Monocytes % 9.2 %; Neutrophils # 3.48 10^3/uL (1.8-7.7); Nucleated Red Blood Cells % 0 %; Platelet Count 49 10^3/cmm (130-400); Red Blood Count 2.44 10^6/uL (4.1-5.3); Red Cell Distribution Width 15.4 % (12.1-15.1); White Blood Count 4.9 10^3/uL (4.0-10.0)
[2022-04-09 08:58] LABS: Blood Urea Nitrogen 16 mg/dL (6-20); Calcium 7.9 mg/dL (8.5-10.5); Chloride 101 mmol/L (98-107); Glomerular Filtration Rate 65.5 mL/min (90-130); Glucose 47 mg/dL (65-115); Magnesium 1.4 mg/dL (1.7-2.3); Osmolality Calculated 274 mOsm/kg (285-295); Sodium 133 mmol/L (136-145)
[2022-04-09] MEDS: folic acid 1 mg Tablet PO (09:06)
[2022-04-09 09:17] LABS: Anion Gap 26.7 (5-19); Carbon Dioxide 9 mmol/L (22-29); Potassium 3.7 mmol/L (3.5-5.1)
[2022-04-09 09:19] LABS: Neutrophils % 78.1 %; Slide Review Slide Review Perform
[2022-04-09] MEDS: ondansetron 2 mg/ML SDV 2 mL 4 MG IVP ×2 (09:37→21:08)
[2022-04-09] MEDS: dextrose 5%-sod chloride 0.9% 1,000 ML 125 ML IV ×2 (10:11→18:49)
--- NOTE | 2022-04-09 15:51 | PM.PN ---
Subjective Subjective: States she feels a little better today. Still having abdominal pain. Has been able to get up some to use commode. Denies further fevers. Still complains of nausea, coughing. Vitals/I&O/Wt Last Vital Signs Temp 98.8 F 04/09/22 15:46 Pulse 111 H 04/09/22 15:46 Resp 16 04/09/22 15:46 BP 166/87 04/09/22 15:46 Pulse Ox 98 04/09/22 15:46 O2 Del Method 04/09/22 15:46 04/09/22 04/09/22 04/09/22 06:59 14:59 22:59 Intake Total 1050 / 2427.000 375 / 375 50 / 425 Balance 1050 / 2427.000 375 / 375 50 / 425 Weight last 48 hrs Weight 178 lb Physical Exam Narrative: General: Cooperative patient, ill appearing and uncomfortable. HEENT: Normocephalic, Atraumatic. External ears normal. Nasal passages patent without drainage. MMM. Heart: Tachycardic, regular rhythm. No R,G,M. Resp: Scattered wheezes thoughout. No rales or rhonchi. Fair air movement throughout. Abd: Soft, Tender throughout the abdomen. No obvious fluid waves or point tenderness noted. Extremities: No edema. Skin: No rash or lesions on exposed areas. Data 04/09/22 07:55 04/09/22 07:55 Micro: Microbiology 04/07/22 12:10 Urine Culture - Final Urine,Clean Catch Escherichia coli 04/07/22 10:05 Blood Culture - Preliminary Blood Escherichia coli A&P Assessment and plan (1) Sepsis: (2) Colitis: (3) Acidosis, lactic: (4) Alcohol abuse: (5) Thrombocytopenia: (6) Hypomagnesemia: (7) Elevated bilirubin: (8) Ileitis: (9) Anemia: (10) Pyelonephritis: Plan Melissa Portillo is a 51 year old female with PMH of cirrhosis, EtOH abuse, pancreatitis, varices, who presented to ER today with fever, abdominal pain, n/v and blood in stool. Admitted for sepsis, colitis, possible pyelonephritis. Continue close inpatient monitoring. No further fevers. CT demonstrates Colitis, and likely pyelo. Blood cultures positive with E. coli 3/4. Urine,Blood cultures positive for E-Coli. UCx pansensitive. Continue Zosyn. Once susceptibilities for BCx resulted, can tailor abx and switch to oral. CIWA protocol. EtOH was 26 on admission, has long history of etoh abuse. Replace Mag and recheck. Remains low, but improved. K+ currently improved. No obvious SBP at this time, though she does have cirrhosis and severe thrombocytopenia. Received 1L bolus in ER. Pressures are stable. Continue NS @ 75. Chronic Macrocytic anemia. Platelets better today. Up to 49. Phosphorus was low to 1.7. We will replace and recheck. Will add Protonix for GIPPX. Hold on anticoagulation due to thrombocytopenia. SCD's for DVT PPx. Continue Zofran and Reglan for N/V. Oxycodone for pain. Clear liquid diet for now. Most likely advance diet tomorrow. Hold other home medications at this time. Code Status: Full IVF: NS @ 75 DVT PPx: SCD's GI PPx: Protonix ABx: Zosyn. Diet: Clear Disposition: MedSur Discharge plan: Home when stable. Attestations Medical Necessity Statement*: We will need close inpatient monitoring for infectious colitis, pyelonephritis and management of sepsis. Coding Level of Care Code Acute Code for Chg Fwd Moderate MDM includes number and complexity of problems actively addressed during encounter, amount and/or complexity of data reviewed/ordered and described risk of complication, morbidity or mortality of management as documented Diagnoses Sepsis A41.9 Colitis K52.9 Acidosis, lactic E87.20 Alcohol abuse F10.10 Thrombocytopenia D69.6 Hypomagnesemia E83.42 Elevated bilirubin R17 Ileitis K52.9 Anemia D64.9 Pyelonephritis N12
[2022-04-09] MEDS: magnesium sulfate premix 2 GM/50 ML PIGGYBACK IV (16:35)
[2022-04-10] VITALS (13 sets, daily range): BP systolic 91–143; BP diastolic 55–91; PULSE 95–116; RESP 16–20; TEMP 36.4–37.1; O2SAT 97–99
[2022-04-10] MEDS: pantoprazole 40 mg SDV IVP ×2 (01:19→14:43)
[2022-04-10] MEDS: oxyCODONE 5 mg IR Tab/Cap PO ×4 (02:29→20:43)
[2022-04-10] MEDS: dextrose 5%-sod chloride 0.9% 1,000 ML 125 ML IV ×2 (02:31→17:12)
[2022-04-10 05:03] LABS: Basophils % 0.7 %; Eosinophils # 0.1 10^3/uL (0.0-0.8); Eosinophils % 2.6 %; Hematocrit 23.1 % (37.0-47.0); Hemoglobin 7.8 g/dL (11.5-15.3); Lymphocytes # 0.7 10^3/uL (0.8-4.8); Lymphocytes % 15.3 %; Mean Corpuscular HGB Conc 33.8 g/dL (30.0-36.0); Mean Corpuscular Hemoglobin 38.8 pg (28.0-34.0); Mean Corpuscular Volume 114.9 fl (81-99); Mean Platelet Volume 11.5 fL (7.4-10.4); Monocytes # 0.8 10^3/uL (0.2-0.9); Monocytes % 19.1 %; Neutrophils # 2.62 10^3/uL (1.8-7.7); Neutrophils % 61.6 %; Nucleated Red Blood Cells % 0 %; Platelet Count 59 10^3/cmm (130-400); Red Blood Count 2.01 10^6/uL (4.1-5.3); Red Cell Distribution Width 14.9 % (12.1-15.1); White Blood Count 4.3 10^3/uL (4.0-10.0)
[2022-04-10 05:34] LABS: Procalcitonin 43.29 ng/mL (0-0.5)
[2022-04-10 05:45] LABS: Alanine Aminotransferase 29 U/L (0-33); Albumin Level 2.7 g/dL (3.5-5.2); Alkaline Phosphatase 86 U/L (35-105); Anion Gap 17.8 (5-19); Aspartate Amino Transferase 69 U/L (0-32); Blood Urea Nitrogen 12 mg/dL (6-20); C Reactive Protein 119.1 mg/L (0.0-4.9); Calcium 8.1 mg/dL (8.5-10.5); Carbon Dioxide 16 mmol/L (22-29); Chloride 102 mmol/L (98-107); Globulin 3.4 g/dL (1.3-4.6); Glomerular Filtration Rate 87.5 mL/min (90-130); Glucose 122 mg/dL (65-115); Magnesium 1.5 mg/dL (1.7-2.3); Osmolality Calculated 277 mOsm/kg (285-295); Sodium 133 mmol/L (136-145); Total Bilirubin 2.8 mg/dL (0.15-1.2); Total Protein 6.1 g/dL (6.6-8.7)
[2022-04-10 06:02] LABS: Potassium 2.8 mmol/L (3.5-5.1)
[2022-04-10 06:03] LABS: Phosphorus 0.6 mg/dL (2.5-4.5)
[2022-04-10] MEDS: ondansetron 2 mg/ML SDV 2 mL 4 MG IVP ×3 (06:14→23:53)
[2022-04-10] MEDS: lidocaine 1% 5 ML in potassium chloride premix 100 ML 26.25 ML IV (07:23)
[2022-04-10] MEDS: thiamine 100 mg Tablet PO (09:03)
[2022-04-10] MEDS: folic acid 1 mg Tablet PO (09:03)
[2022-04-10] MEDS: phosphorus 250 mg Tablet PO (09:04)
[2022-04-10] MEDS: magnesium sulfate premix 2 GM/50 ML PIGGYBACK IV (11:20)
[2022-04-10] MEDS: piperacillin-tazobactam 3.375 GM in sodium chloride 0.9% (plus) 50 ML IV ×2 (13:04→18:24)
[2022-04-10] MEDS: potassium phosphate (mEq K) 40 MEQ in sodium chloride 0.9% (100 ml) 100 ML 27.25 MEQ IV (13:05)
--- NOTE | 2022-04-10 13:20 | PM.PN ---
Subjective Subjective: Seen today. Patient states she is doing well at this time. Has no complaints. She says she is starting to feel better. She would like to quit alcohol her last drink was about a week ago. She is interested in alcohol Anonymous as an outpatient after she gets discharged. He says she smokes about half a pack per day. She used to smoke 3 packs/day but has cut down to half a pack. She would like a nicotine patch if we have 1. Says she has neuropathy and gabapentin and Lyrica do not work however she has tried them in the past. She states that she is unsteady at times and has to use her walker. Her significant other has to almost lift her into her truck. She holds onto the barreto and furniture to get to the bathroom and around the house. She says she fractured her feet couple years ago which seem to have healed by now. She is not on oxygen at home. Vitals/I&O/Wt Last Vital Signs Temp 98.1 F 04/10/22 11:34 Pulse 105 H 04/10/22 11:34 Resp 18 04/10/22 11:34 BP 138/91 04/10/22 11:34 Pulse Ox 99 04/10/22 11:34 O2 Del Method 04/10/22 11:34 O2 Flow Rate 2.5 04/09/22 20:00 04/09/22 04/10/22 04/10/22 22:59 06:59 14:59 Intake Total 1251.250 / 4287.350 3544.5 / 2638.750 215 / 215 Balance 1251.250 / 5658.494 1837.5 / 2638.750 215 / 215 Physical Exam Narrative: General: Alert oriented x3, patient seen sitting up in bed appearing comfortable at this time. On nasal cannula. HEENT: Normocephalic, atraumatic, EOMI, breathing comfortably, no acute respiratory distress. Cardio: Regular rate rhythm, normal S1-S2, Respiratory: Clear to auscultation bilaterally no wheezes no rhonchi. GI: Abdomen soft, nontender, nondistended, bowel sounds + Extremities: No edema noted. Data 04/10/22 04:25 04/10/22 04:25 Micro: Microbiology 04/07/22 12:10 Urine Culture - Final Urine,Clean Catch Escherichia coli A&P Assessment and plan (1) Pyelonephritis: (2) Sepsis: (3) Alcohol intoxication: (4) Colitis: (5) Acidosis, lactic: (6) Thrombocytopenia: (7) Hypomagnesemia: (8) Ileitis: (9) Anemia: (10) Hypophosphatemia: (11) UTI (urinary tract infection): (12) Gram-negative bacteremia: (13) Nicotine dependence: Plan #Sepsis secondary to UTI present on admission. #Thrombocytopenia secondary to alcohol use #Alcohol abuse #Hypomagnesemia #Ileitis #Chronic macrocytic anemia most likely secondary to alcohol use #Pyelonephritis #UTI #Gram-negative bacteremia with E. coli #History of varices, pancreatitis #Nicotine dependence -Presented with fever colitis and pyelonephritis. Blood cultures positive for E. coli 3 out of 4 bottles. Urine culture pansensitive. Patient did require vasopressors briefly in the ICU. -Off vasopressors and on the floor at this time. ? EtOH 26 on admission. Long history of alcohol abuse. Interested in alcoholic rehab at discharge ? Continue patient on Zosyn at this time ? Does have a history of cirrhosis and severe thrombocytopenia secondary to liver disease and alcohol use ? Oxycodone for pain ? We will advance diet to full liquids today and then to GI soft diet. Advance as tolerated ? Patient will need 2 weeks of antibiotics. We will repeat blood cultures today ? Replete magnesium, potassium, phosphorus ? Check phosphorus, magnesium, vitamin D level in a.m. -Offered nicotine patch - Discussed alcohol cessation and smoking cessation with the patient. Full code Continue normal saline at 75 cc/h SCDs Protonix 40 twice daily, sucralfate 1 g twice daily Check PT OT Attestations Medical Necessity Statement*: Will require continued hospitalization for management of colitis pyelonephritis sepsis, electrolyte imbalance. Other Coding Information Focused coding review requested Diagnoses Pyelonephritis N12 Sepsis A41.9 Alcohol intoxication F10.929 Colitis K52.9 Acidosis, lactic E87.20 Thrombocytopenia D69.6 Hypomagnesemia E83.42 Ileitis K52.9 Anemia D64.9 Hypophosphatemia E83.39 UTI (urinary tract infection) N39.0 Gram-negative bacteremia R78.81 Nicotine dependence F17.200
[2022-04-10 14:13] LABS: Basophils % 0.5 %; Eosinophils # 0.1 10^3/uL (0.0-0.8); Eosinophils % 3.1 %; Hematocrit 23.1 % (37.0-47.0); Hemoglobin 7.9 g/dL (11.5-15.3); Lymphocytes # 0.7 10^3/uL (0.8-4.8); Lymphocytes % 16.9 %; Mean Corpuscular HGB Conc 34.2 g/dL (30.0-36.0); Mean Corpuscular Hemoglobin 38.7 pg (28.0-34.0); Mean Corpuscular Volume 113.2 fl (81-99); Mean Platelet Volume 11.6 fL (7.4-10.4); Monocytes # 0.9 10^3/uL (0.2-0.9); Monocytes % 21.7 %; Neutrophils # 2.24 10^3/uL (1.8-7.7); Neutrophils % 57.3 %; Nucleated Red Blood Cells % 0 %; Platelet Count 69 10^3/cmm (130-400); Red Blood Count 2.04 10^6/uL (4.1-5.3); Red Cell Distribution Width 14.6 % (12.1-15.1); White Blood Count 3.9 10^3/uL (4.0-10.0)
[2022-04-10 14:36] LABS: Ferritin 327 ng/mL (15-150); Iron 155 ug/dL (37-145)
[2022-04-10 14:52] LABS: 25 Hydroxy Vitamin D 10 ng/mL (30-100)
[2022-04-10 14:54] LABS: Percent Saturation 90.1 % (20-50); Total Iron Binding Capacity 172 mcg/dl; Unsaturated Iron Binding < 17 ug/dL (112-347)
[2022-04-10 18:12] LABS: Basophils % 0.6 %; Eosinophils # 0.1 10^3/uL (0.0-0.8); Eosinophils % 3.8 %; Hemoglobin 8.1 g/dL (11.5-15.3); Lymphocytes # 0.8 10^3/uL (0.8-4.8); Mean Corpuscular HGB Conc 33.8 g/dL (30.0-36.0); Mean Corpuscular Hemoglobin 39.1 pg (28.0-34.0); Mean Corpuscular Volume 115.9 fl (81-99); Mean Platelet Volume 11.5 fL (7.4-10.4); Monocytes # 0.7 10^3/uL (0.2-0.9); Monocytes % 21.7 %; Neutrophils # 1.69 10^3/uL (1.8-7.7); Neutrophils % 49.6 %; Nucleated Red Blood Cells % 0 %; Platelet Count 67 10^3/cmm (130-400); Red Blood Count 2.07 10^6/uL (4.1-5.3); Red Cell Distribution Width 15.2 % (12.1-15.1); White Blood Count 3.4 10^3/uL (4.0-10.0)
[2022-04-10] MEDS: LORazepam 2 mg/mL INJ 1 mL IVP (19:33)
[2022-04-10] MEDS: LORazepam 2 mg/mL INJ 1 mL IM (23:53)
[2022-04-11] VITALS (13 sets, daily range): BP systolic 98–131; BP diastolic 65–87; PULSE 85–104; RESP 15–18; TEMP 36.6–36.9; O2SAT 94–98
[2022-04-11] MEDS: pantoprazole 40 mg SDV IVP ×2 (01:54→14:02)
[2022-04-11] MEDS: dextrose 5%-sod chloride 0.9% 1,000 ML 125 ML IV ×3 (02:14→21:06)
[2022-04-11] MEDS: piperacillin-tazobactam 3.375 GM in sodium chloride 0.9% (plus) 50 ML IV ×3 (03:24→21:06)
[2022-04-11] MEDS: oxyCODONE 5 mg IR Tab/Cap PO ×3 (03:24→18:33)
[2022-04-11 05:30] LABS: Basophils % 1.2 %; Eosinophils # 0.2 10^3/uL (0.0-0.8); Eosinophils % 4.7 %; Hematocrit 22.9 % (37.0-47.0); Hemoglobin 7.8 g/dL (11.5-15.3); Lymphocytes # 0.9 10^3/uL (0.8-4.8); Lymphocytes % 26.5 %; Mean Corpuscular HGB Conc 34.1 g/dL (30.0-36.0); Mean Corpuscular Volume 114.5 fl (81-99); Mean Platelet Volume 11.9 fL (7.4-10.4); Monocytes # 0.9 10^3/uL (0.2-0.9); Monocytes % 26.7 %; Neutrophils # 1.39 10^3/uL (1.8-7.7); Neutrophils % 40.3 %; Nucleated Red Blood Cells % 0 %; Platelet Count 72 10^3/cmm (130-400); Red Cell Distribution Width 15.7 % (12.1-15.1); White Blood Count 3.4 10^3/uL (4.0-10.0)
[2022-04-11 05:48] LABS: Anion Gap 13.1 (5-19); Blood Urea Nitrogen 9 mg/dL (6-20); Calcium 7.9 mg/dL (8.5-10.5); Carbon Dioxide 18 mmol/L (22-29); Chloride 109 mmol/L (98-107); Glomerular Filtration Rate 129.1 mL/min (90-130); Glucose 110 mg/dL (65-115); Magnesium 1.5 mg/dL (1.7-2.3); Osmolality Calculated 283 mOsm/kg (285-295); Potassium 3.1 mmol/L (3.5-5.1); Sodium 137 mmol/L (136-145)
[2022-04-11 05:53] LABS: Phosphorus 0.9 mg/dL (2.5-4.5)
[2022-04-11] MEDS: magnesium sulfate premix 2 GM/50 ML PIGGYBACK IV (06:48)
[2022-04-11] MEDS: potassium phosphate (mEq K) 40 MEQ in sodium chloride 0.9% (100 ml) 100 ML 27.25 MEQ IV (08:56)
[2022-04-11] MEDS: ergocalciferol (vitamin D2) 50,000 Unit Capsule 50000 UNIT PO (08:59)
[2022-04-11] MEDS: folic acid 1 mg Tablet PO (08:59)
[2022-04-11] MEDS: thiamine 100 mg Tablet PO (08:59)
--- NOTE | 2022-04-11 10:46 | PC.CHAP ---
Pastoral Care Encounter/Spiritual Assessment Type of Contact [x] Declined sleep manager visit [] Patient/Family/Request visit [] Outpatient visit [] Follow-up visit [] Physician referral [] Code/Alert [] Routine visit [] Staff referral [] Actively dying [] Patient sleeping [] Family support [] [] Out of room [] Palliative care [] [] Receiving care in room [] Pre-surgical visit [] Trauma [] Long length of stay [] ICU visit [] Other: Relational/Emotional Strength [] Patient feels connected with others/family/visitors/staff [] Distress [] Loneliness/isolation [] Abandonment Spirituality of Patient [] Person of Lety [] Attends Synagogue of their Lety [] Believes in Prayer [] Reads Bible or Judaism materials [] There are Spiritual issues to be addressed [employer] Backtender Interventions [] Prayer [] Active listening [] Non-anxious presence [] Spiritual/emotional support [] Crisis/trauma care [] Spiritual counseling [] Bereavement support [] Provided bereavement packet [] Provided Bible/devotional materials [] Provided toy/stuffed animal, coloring book to patient or family member [] Provided Communion [] Anointing/Boyd [] Salvation [] Completed spiritual assessment [] Other: Impact on Illness or Injury [] Angry [] Fearful [] Anxious [] Often cries [] Exhaustion [] Unable to work [] Unable to attend shinto [] Unable to walk/stand [] Unable to read [] Unable to drive [] Unable to eat/drink [] Unable to sleep [] Unable to be with family [] Patient intubated [] Other: Summary Time spent with patient
--- NOTE | 2022-04-11 12:11 | PM.PN ---
Subjective Subjective: seen today. hb 7.8 stable plt 72 k 3.1 phos 0.9 mag 1.5 iron studies reviewed says she is feeling a lot better Vitals/I&O/Wt Last Vital Signs Temp 98.3 F 04/11/22 08:00 Pulse 104 H 04/11/22 08:00 Resp 18 04/11/22 11:39 BP 116/65 04/11/22 08:00 Pulse Ox 94 04/11/22 08:00 O2 Del Method 04/11/22 08:00 O2 Flow Rate 2.5 04/09/22 20:00 04/10/22 04/11/22 04/11/22 22:59 06:59 14:59 Intake Total 1399.0909 / 1854.0909 1050 / 2904.0909 1340 / 1340 Balance 1399.0909 / 1854.0909 1050 / 2904.0909 1340 / 1340 Physical Exam Narrative: General: Alert oriented x3, patient seen on room air HEENT: Normocephalic, atraumatic, EOMI, Cardio: Regular rate rhythm, normal S1-S2, Respiratory: Clear to auscultation bilaterally no wheezes no rhonchi. GI: Abdomen soft, nontender, nondistended, bowel sounds + Extremities: No edema noted. Data 04/11/22 05:07 04/11/22 05:07 Micro: Microbiology 04/07/22 09:26 Blood Culture - Final Blood Escherichia coli 04/07/22 10:05 Blood Culture - Final Blood Escherichia coli 04/10/22 13:55 Blood Culture - Preliminary Blood SPECIMEN COLLECTED 04/10/22 13:55 Blood Culture - Preliminary Blood SPECIMEN COLLECTED A&P Assessment and plan (1) Pyelonephritis: (2) Sepsis: (3) Alcohol intoxication: (4) Colitis: (5) Acidosis, lactic: (6) Thrombocytopenia: (7) Hypomagnesemia: (8) Ileitis: (9) Anemia: (10) Hypophosphatemia: (11) UTI (urinary tract infection): (12) Gram-negative bacteremia: (13) Nicotine dependence: Plan #Sepsis secondary to UTI present on admission. #Thrombocytopenia secondary to alcohol use #Alcohol abuse #Hypomagnesemia #Ileitis #Chronic macrocytic anemia most likely secondary to alcohol use #Pyelonephritis #UTI #Gram-negative bacteremia with E. coli #History of varices, pancreatitis #Nicotine dependence #Anemia of chronic disease -Presented with fever colitis and pyelonephritis. Blood cultures positive for E. coli 3 out of 4 bottles. Urine culture pansensitive. Patient did require vasopressors briefly in the ICU. -Off vasopressors and on the floor at this time. ? EtOH 26 on admission. Long history of alcohol abuse. Interested in alcoholic rehab at discharge ? Continue patient on Zosyn at this time ? Does have a history of cirrhosis and severe thrombocytopenia secondary to liver disease and alcohol use ? Oxycodone for pain ? We will advance diet to full liquids today and then to GI soft diet. Advance as tolerated ? Patient will need 2 weeks of antibiotics. We will repeat blood cultures today ? Replete magnesium, potassium, phosphorus ? Replete phosphate, K, Mag, Vitamin d - Order vitamin d 50,000 q7d, potassium phosphate 40 IV x1 -Offered nicotine patch - Discussed alcohol cessation and smoking cessation with the patient. Repeat BCx so far NTD Check PT Full code Continue normal saline at 75 cc/h SCDs Protonix 40 twice daily, sucralfate 1 g twice daily Attestations Medical Necessity Statement*: COntinue IV antibiotics Diagnoses Pyelonephritis N12 Sepsis A41.9 Alcohol intoxication F10.929 Colitis K52.9 Acidosis, lactic E87.20 Thrombocytopenia D69.6 Hypomagnesemia E83.42 Ileitis K52.9 Anemia D64.9 Hypophosphatemia E83.39 UTI (urinary tract infection) N39.0 Gram-negative bacteremia R78.81 Nicotine dependence F17.200
[2022-04-11] MEDS: nicotine 7 mg Patch 1 PATCH TRANSDERMA (14:02)
--- NOTE | 2022-04-11 17:46 | XRR_ITS ---
PROCEDURE INFORMATION: Exam: XR Abdomen Exam date and time: 04/11/2022 6:06 PM Age: 51 years old Clinical indication: Abdominal pain TECHNIQUE: Imaging protocol: Radiologic exam of the abdomen. Views: Frontal supine view of the abdomen. 1 View. COMPARISON: CT abdomen pelvis w con* [id number] 04/07/2022 10:51 AM FINDINGS: Gastrointestinal tract: Normal. No bowel dilation. Bones/joints: Unremarkable. XR/XR KUB portable [id number] IMPRESSION: No acute findings.
[2022-04-12] VITALS (13 sets, daily range): BP systolic 96–136; BP diastolic 71–95; PULSE 83–100; RESP 15–20; TEMP 36.6–37.1; O2SAT 95–100
[2022-04-12] MEDS: oxyCODONE 5 mg IR Tab/Cap PO ×2 (01:45→08:40)
[2022-04-12] MEDS: pantoprazole 40 mg SDV IVP ×2 (01:46→12:32)
[2022-04-12] MEDS: piperacillin-tazobactam 3.375 GM in sodium chloride 0.9% (plus) 50 ML IV ×3 (04:14→21:37)
[2022-04-12] MEDS: dextrose 5%-sod chloride 0.9% 1,000 ML 125 ML IV ×3 (04:43→22:43)
[2022-04-12 06:05] LABS: Hematocrit 23.4 % (37.0-47.0); Hemoglobin 7.9 g/dL (11.5-15.3); Mean Corpuscular HGB Conc 33.8 g/dL (30.0-36.0); Mean Corpuscular Volume 112.5 fl (81-99); Mean Platelet Volume 11.6 fL (7.4-10.4); Platelet Count 114 10^3/cmm (130-400); Red Blood Count 2.08 10^6/uL (4.1-5.3); Red Cell Distribution Width 16.1 % (12.1-15.1); White Blood Count 3.3 10^3/uL (4.0-10.0)
[2022-04-12 06:23] LABS: Blood Urea Nitrogen 6 mg/dL (6-20); Calcium 7.9 mg/dL (8.5-10.5); Carbon Dioxide 21 mmol/L (22-29); Chloride 110 mmol/L (98-107); Glomerular Filtration Rate 129.1 mL/min (90-130); Glucose 109 mg/dL (65-115); Magnesium 1.4 mg/dL (1.7-2.3); Osmolality Calculated 286 mOsm/kg (285-295); Sodium 139 mmol/L (136-145)
[2022-04-12 07:15] LABS: Slide Review Slide Review Perform
[2022-04-12 07:21] LABS: Eosinophils 3 %; Lymphocytes 45 %; Lymphocytes Absolute 1.6 10^3/cmm (1.2-3.4); Monocytes Absolute 0.6 10^3/cmm (0.1-0.6); Platelet Estimate Decreased (Normal); Segmented Neutrophils 31 %; Total Cells Counted 100 (0-100)
[2022-04-12 07:24] LABS: Anisocytosis 1+; Macrocytosis 1+
[2022-04-12] MEDS: nicotine 7 mg Patch 1 PATCH TRANSDERMA (08:39)
[2022-04-12] MEDS: multivitamin therapeutic Tablet 1 TAB PO (08:40)
[2022-04-12] MEDS: folic acid 1 mg Tablet PO (08:40)
[2022-04-12] MEDS: thiamine 100 mg Tablet PO (08:40)
--- NOTE | 2022-04-12 09:07 | CT_ITS ---
WS: [id number] CT ABDOMEN AND PELVIS WITH CONTRAST HISTORY: abdominal pain, progressive abdominal pain. TECHNIQUE: Imaging performed of the abdomen and pelvis with IV contrast. Single phase imaging of the abdomen. Coronal and sagittal reformats are submitted. All CT scans at [facility] use at [address] one of these dose optimization techniques: automated exposure control; mA and/or kV adjustment per patient size (includes targeted exams where dose is matched to clinical indication); or iterative re construction. IV CONTRAST: Omnipaque 350; 100 mL IV. Oral contrast: No. DLP: 893.79 mGy.cm COMPARISON: Multiple prior CT evaluations of the abdomen and pelvis are reviewed including 04/07/2022, 02/26/2022, 02/11/2022, exams from 2015 and 2019. Lower thorax: Very small bilateral pleural effusions are new since the most recent exam. There is mil d some mild pulmonary congestion. No definite cardiac enlargement. Small hiatal hernia. Liver/biliary system: Liver is enlarged with diffuse low attenuation from hepatic steatosis. There al so may be a component of hepatic congestion. Enlarged liver measuring 22.5 cm in length. Gallbladder: Status post cholecystectomy. Pancreas: Normal size pancreas and pancreatic duct. No adjacent inflammation. Spleen: Normal size spleen. No mass or infarct. Adrenal glands: Normal. Right kidney: Normal. Left kidney: Normal. Aorta: Normal. Lymphadenopathy: None. Free fluid: There is a small amount of ascites which is new since the prior study. There is also incr easing mesenteric edema and soft tissue anasarca. No free air is identified. GI tract: Stomach is normally distended. There is an abnormal loop of small bowel in the RIGHT pelvis . This has been previously described with wall thickening and changes of ileitis. There is increasing amount of fluid in the RIGHT lower quadrant with loss of the normal appearance of the mucosa and sub mucosa. Increasing air with fecalization. I suspect this is an abnormal distal small bowel and highly suspicious for ischemic changes. Mild more proximal small bowel distention seen on the prior study m ore proximally has resolved. No colon obstruction. There are a few diverticula. Surgical anastomosis in the sigmoid region for uncertain etiology. Abdominal wall: Soft tissue anasarca. Pelvis: Small amount of free fluid in the pelvis is increased. Prior hysterectomy. Bones: Unremarkable. CT/CT abdomen pelvis w con* [id number] IMPRESSION: 1. Abnormal loop of distal small bowel, probably terminal ilium in the RIGHT l ower quadrant. This abnormal loop is deep within the pelvis with loss of the no rmal mucosa and submucosal layers of the small bowel. Increasing edema and wall thickening. Increasing air within the lumen with loss of the normal architectu re and increasing adjacent free fluid. Highly suspicious for ischemic changes i nvolving the distal small bowel. There are changes of fecalization suggesting a long-term obstruction. High-grade stricture with ischemic changes. No underlyi ng mass is identified by CT. 2. Increasing but small amount of ascites and small bilateral pleural effusion s and anasarca. 3. Marked hepatic enlargement and changes of hepatic congestion. 4. Prior cholecystectomy. 5. Prior surgical anastomotic sutures in the region of the sigmoid of uncertai n etiology. Notified Araceli Talavera MD at 04/12/2022 10:36 AM.
[2022-04-12] MEDS: ALPRAZolam 0.5 mg Tablet 0.25 MG PO (09:32)
[2022-04-12] MEDS: iohexol 350 mg/mL 500 mL Btl (per mL) IV (09:51)
[2022-04-12] MEDS: lidocaine 1% 5 ML in potassium chloride premix 100 ML 26.25 ML IV (11:21)
--- NOTE | 2022-04-12 11:30 | P.PN_ITS ---
Subjective Subjective: Seen this morning. No acute events overnight. This morning however she complains of abdominal pain. She states this mostly in the epigastric region. She did not even start her breakfast yet. No BM overnight. Vitals/I&O/Wt Last Vital Signs Temp 97.8 F 04/12/22 08:00 Pulse 92 04/12/22 08:00 Resp 17 04/12/22 08:40 BP 127/83 04/12/22 08:00 Pulse Ox 97 04/12/22 08:00 O2 Del Method 04/12/22 08:00 O2 Flow Rate 2.5 04/09/22 20:00 04/11/22 04/12/22 04/12/22 22:59 06:59 14:59 Intake Total 1050 / 2499.0909 1002.083 / 3501.1739 290 / 290 Balance 1050 / 2499.0909 1002.083 / 3501.1739 290 / 290 Physical Exam Narrative: General: Alert oriented x3, patient seen on room air HEENT: Normocephalic, atraumatic, EOMI, Cardio: Regular rate rhythm, normal S1-S2, Respiratory: Clear to auscultation bilaterally no wheezes no rhonchi. GI: Abdomen soft, no apparent guarding however tender to palpation in epigastric region and flanks. Bowel sounds present slightly sluggish. Says it hurts a lot. Extremities: No edema noted. Data 04/12/22 05:42 04/12/22 05:42 Micro: Microbiology 04/10/22 13:55 Blood Culture - Preliminary Blood NEGATIVE TO DATE 04/10/22 13:55 Blood Culture - Preliminary Blood NEGATIVE TO DATE A&P Assessment and plan (1) Pyelonephritis: (2) Sepsis: (3) Alcohol intoxication: (4) Colitis: (5) Acidosis, lactic: (6) Thrombocytopenia: (7) Hypomagnesemia: (8) Ileitis: (9) Anemia: (10) Hypophosphatemia: (11) UTI (urinary tract infection): (12) Gram-negative bacteremia: (13) Nicotine dependence: Plan #Sepsis secondary to UTI present on admission. #Thrombocytopenia secondary to alcohol use #Alcohol abuse #Hypomagnesemia #Ileitis #Chronic macrocytic anemia most likely secondary to alcohol use #Pyelonephritis #UTI #Gram-negative bacteremia with E. coli #History of varices, pancreatitis #Nicotine dependence #Anemia of chronic disease -Presented with fever colitis and pyelonephritis. Blood cultures positive for E. coli 3 out of 4 bottles. Urine culture pansensitive. Patient did require vasopressors briefly in the ICU. -Off vasopressors and on the floor at this time. ? EtOH 26 on admission. Long history of alcohol abuse. Interested in alcoholic rehab at discharge ? Continue patient on Zosyn at this time ? Does have a history of cirrhosis and severe thrombocytopenia secondary to liver disease and alcohol use ? Oxycodone for pain ? We will advance diet to full liquids today and then to GI soft diet. Advance as tolerated ? Patient will need 2 weeks of antibiotics. ? Replete magnesium, potassium, phosphorus ? Replete phosphate, K, Mag, Vitamin d - Order vitamin d 50,000 q7d, potassium phosphate 40 IV x1 -Offered nicotine patch - Discussed alcohol cessation and smoking cessation with the patient. Repeat BCx so far NTD Check PT - Check ct abdomen with IV contrast. Consult general surgery Full code Continue normal saline at 75 cc/h SCDs Protonix 40 twice daily, sucralfate 1 g twice daily Attestations Medical Necessity Statement*: continue above management Coding Level of Care Code Acute Code for [facility] Diagnoses Pyelonephritis N12 Sepsis A41.9 Alcohol intoxication F10.929 Colitis K52.9 Acidosis, lactic E87.20 Thrombocytopenia D69.6 Hypomagnesemia E83.42 Ileitis K52.9 Anemia D64.9 Hypophosphatemia E83.39 UTI (urinary tract infection) N39.0 Gram-negative bacteremia R78.81 Nicotine dependence F17.200
[2022-04-12 11:34] LABS: ABG PCO2 26.2 mmHg (35-45); ABG PH Result 7.46 (7.35-7.45); Alveolar-Arterial Oxygen Gradi 3.7 mmHg (5-10); Arterial Blood Gas Hematocrit 26.7 % (37-47); Base Excess ABG -4.1 mmol/L (-2.0-2.0); Blood Gas Allen Test Pos; Blood Gas Operator Identificat MONRO; Blood Gas Sample Site Brachial, right; Blood Gas Sample Type Arterial; Carboxyhemoglobin 1.1 %THgb (0.4-20.1); HCO3 ABG 18.8 mmol/L (22-26); HGB O2 Sat 96.7 % (95-100); Ionized Calcium Level - ABG 1.2 mmol/L (1.1-1.4); Methemoglobin 0.4 % (0.4-1.5); Oxygen Device ROOM AIR; Oxygen Saturation ABG 98.1; PO2 ABG 86.4 mmHg (80.0-100.0); Potassium Level - ABG 2.9 mmol/L (3.5-5.0); Total Hemoglobin 8.7 g/dL (12-16)
[2022-04-12 11:57] LABS: Lactate (Lactic Acid level) 1.8 mmol/L (0.5-2.2)
[2022-04-12] MEDS: morphine 4 mg/mL SDV 1 mL 2 MG IVP ×2 (16:10→21:37)
--- NOTE | 2022-04-12 17:54 | P.CONIM_ITS ---
Providers/Reason For Consult Consulting Physician/Specialty*: Dr. Todd Sorto DO/General surgery Reason for Consult*: Abdominal pain Attending Physician: Araceli Talavera MD Primary Care Provider: Aditya Degroot DO History of Present Illness History of Present Illness Melissa Portillo is a 51 year old female, with a history of alcohol abuse and pancreatitis, who presented with abdominal pain and blood in her stool. CT abdomen shows ileitis and colitis of the ascending and transverse colon. Ileum was suspicious for ischemic changes. She reports that she has diffuse severe abdominal pain. The pain is worse in the epigastrium but terrible everywhere else also. Pain is sharp. Eating makes the pain worse. Palpation makes the pain worse. Nothing makes the pain better. Pain does not radiate. She does endorse nausea and vomiting sometimes with hematemesis. She also endorses hematochezia and melena at times. Review of Systems General: Reports: 10 or more systems reviewed and unremarkable except in HPI and below Medications/Allergies Home Medications Medication Instructions Recorded Confirmed Last Taken Type omeprazole 40 mg capsule,delayed 40 mg PO BID 10/18/21 04/07/22 01/13/22 History release levetiracetam 500 mg tablet 500 mg PO BID #60 tabs 04/05/22 04/07/22 Unknown Rx (Keppra) albuterol sulfate 90 mcg/actuation 2 puff inhalation Q6H PRN 04/07/22 04/07/22 Unknown History aerosol inhaler Shortness Of Breath aspirin 325 mg tablet 325 mg PO BID PRN Chest Pain 04/07/22 04/07/22 Unknown History sucralfate 1 gram tablet 1 g PO .UP TO BID 04/07/22 04/07/22 Unknown History Allergies Allergy/AdvReac Type Severity Reaction Status Date / Time codeine Allergy ALGY-Hives Verified 04/07/22 10:42 ketorolac [From Toradol] Allergy ALGY-Rash Verified 04/07/22 10:42 naproxen [From Naprosyn] Allergy ADR-Vomitin Verified 04/07/22 10:42 g prochlorperazine Allergy ALGY-Swell Verified 04/07/22 10:42 [From Compazine] Lip/Tongue/Throat Penicillins AdvReac Intermediate ADR-Vomitin Verified 04/07/22 10:42 g Current Medications Generic Name Dose Route Start Last Admin Trade Name Chaseq PRN Reason Stop Dose Admin Acetaminophen 650 mg 04/07/22 13:21 04/08/22 22:03 Acetaminophen 325 Mg Tablet PO 650 mg Q6H PRN Administration Mild/Mod Pain Or Temp >/= 101 Ergocalciferol 50,000 unit 04/11/22 08:00 04/11/22 08:59 Ergocalciferol (Vitamin D2) 50,000 Unit Capsule PO 50,000 unit Q7D ANNETTA Administration Folic Acid 1 mg 04/08/22 09:00 04/12/22 08:40 Folic Acid 1 Mg Tablet PO 1 mg DAILY ANNETTA Administration Piperacillin Sod/Tazobactam 50 mls @ 12.5 mls/hr 04/07/22 22:45 04/12/22 16:56 Sod 3.375 gm/ Sodium Chloride IV Infused Q8H ANNETTA Infusion Protocol Dextrose/Sodium Chloride 1,000 mls @ 125 mls/hr 04/09/22 09:30 04/12/22 13:49 Dextrose 5%-Sod Chloride 0.9% IV 125 mls/hr .Q8H ANNETTA Administration Morphine Sulfate 2 mg 04/12/22 15:20 04/12/22 16:10 Morphine 4 Mg/Ml Sdv 1 Ml IVP 2 mg Q4H PRN Administration SEVERE PAIN Multivitamins Therapeutic 1 tab 04/08/22 09:00 04/12/22 08:40 Multivitamin Therapeutic Tablet PO 1 tab DAILY ANNETTA Administration Nicotine 1 patch 04/11/22 13:34 04/12/22 08:39 Nicotine 7 Mg Patch TRANSDERMA 1 patch DAILY ANNETTA Administration Ondansetron HCl 4 mg 04/07/22 13:21 04/10/22 23:53 Ondansetron 2 Mg/Ml Sdv 2 Ml IVP 4 mg Q8H PRN Administration vomiting, or N/V if npo Oxycodone HCl 5 mg 04/09/22 14:23 04/12/22 08:40 Oxycodone 5 Mg Ir Tab/Cap PO 5 mg Q6H PRN Administration MODERATE PAIN Pantoprazole Sodium 40 mg 04/07/22 13:30 04/12/22 12:32 Pantoprazole 40 Mg Sdv IVP 40 mg Q12H ANNETTA Administration Thiamine Mononitrate 100 mg 04/08/22 09:00 04/12/22 08:40 Thiamine 100 Mg Tablet PO 100 mg DAILY ANNETTA Administration PFSH Acute PFSH: Medical History (Updated 04/12/22 @ 17:57 by Todd Sorto DO) Abdominal pain Abdominal pain Abdominal pain Acute dehydration Acute hypokalemia KATRIN (acute kidney injury) Alcohol dependence Alcohol dependence with withdrawal Alcohol use disorder Alcohol withdrawal Alcoholic gastritis Alcoholic hepatitis Alcoholic ketoacidosis Alcoholism Anemia Anxiety Carpal tunnel syndrome Chronic alcoholic hepatitis Chronic back pain Chronic pancreatitis Cirrhosis Enteritis Fracture of proximal phalanx of right thumb Gastritis GERD (gastroesophageal reflux disease) H. pylori infection Hepatitis A Hypokalemia Hypokalemia Hypomagnesemia Intractable nausea and vomiting Intractable nausea and vomiting Macrocytic anemia Nausea & vomiting Nausea and vomiting Pancytopenia Pancytopenia Sciatica Small bowel obstruction, partial Thrombocytopenia Tobacco dependency Urinary tract infection Surgical History H/O rotator cuff surgery H/O: hysterectomy History of appendectomy History of cholecystectomy Family History Denies family history of Diabetes CAD (coronary artery disease) Dementia Social History Smoking and tobacco status: current every day smoker Alcohol intake: current Alcohol intake frequency: 3 or more drinks per day Alcohol type: hard liquor Desire information about alcohol rehabilitation?: No Current occupation: On disability Vitals/I&O/Wt Last Vital Signs Temp 98.1 F 04/12/22 15:51 Pulse 93 04/12/22 15:51 Resp 17 04/12/22 16:10 BP 124/87 04/12/22 15:51 Pulse Ox 97 04/12/22 15:51 O2 Del Method 04/12/22 15:51 O2 Flow Rate 2.5 04/09/22 20:00 04/12/22 04/12/22 04/12/22 06:59 14:59 22:59 Intake Total 1002.083 / 3501.1739 1290 / 1290 155 / 1445 Balance 1002.083 / 3501.1739 1290 / 1290 155 / 1445 Physical Exam Narrative: General : Patient is well developed , no acute distress, oriented x3 Head : Normal cephalic, a-traumatic. Ears : Pinnae and external canal are normal. Hearing is normal. Eyes : PERRLA, Sclera and injection are normal. No conjunctival discharge. Nose : Mucous membranes are without erythema. Throat : buccal mucosa is normal, gums are without significant recession or hypertrophy. Lungs : Equal chest rise bilaterally, no use of accessory muscles, trachea is midline. Cor : Rate and rhythm are normal. Abdomen : Soft, distended, diffusely tender with some voluntary guarding, ne gative rebound Extremities : No edema, no cyanosis or clubbing, dorsalis pedis pulses are present bilaterally, non-tender to palpation of calves. Upper extremities are normal bilaterally. Back : non-tender to palpation, no CVA tenderness. Neuro : CN II - XII intact, Upper and lower extremities have equal and full strength Data 04/12/22 05:42 04/12/22 05:42 Micro: Microbiology 04/10/22 13:55 Blood Culture - Preliminary Blood NEGATIVE TO DATE 04/10/22 13:55 Blood Culture - Preliminary Blood NEGATIVE TO DATE A&P Assessment and plan (1) Colitis: (2) Abdominal pain: (3) GI bleed: Plan She does not currently have pancreatitis Her abdominal pain is out of proportion to the exam. This is very suspicious for possible mesenteric ischemia. I have ordered a CTA of the abdomen and pelvis. Keep n.p.o. Further recommendations pending results of imaging Coding Level of Care Code Acute Code for [facility] Diagnoses Colitis K52.9 Abdominal pain R10.9 GI bleed K92.2
--- NOTE | 2022-04-12 22:05 | PC.NURSE ---
This nurse accompanied the Pt via wheelchair for the ordered CTA that was attempted earlier today. The ultrasound guided IV that was placed infiltrated per vik reports. Another ultrasound guided IV was placed BY daysamrk in the right upper arm before taking the pt down to CT. This Iv also infiltrated. Kmaron Burleson has been notified of the situation and has asked for another Iv to be placed by ultrasound. The pt is yet to recieved another IV for the contrast at this time. Dr zepeda is aware and has been continually updated throughout the night to this point. The patient has hypoactive bowl sounds and states that this distention and awful pain began to set today. Pts is at bedside.
[2022-04-13] VITALS (10 sets, daily range): BP systolic 107–130; BP diastolic 72–90; PULSE 75–91; RESP 15–18; TEMP 36.3–36.9; O2SAT 95–100
--- NOTE | 2022-04-13 00:09 | PC.NURSE ---
Dr. Lnudy notified that 4th Ultrasound guided IV was unsuccessful and pt is still unable to receive CTA for possible ischemic bowel. stated that order is routine and can be performed in the morning. No further orders received.
[2022-04-13] MEDS: pantoprazole 40 mg SDV IVP ×2 (00:50→14:10)
--- NOTE | 2022-04-13 01:23 | PC.NURSE ---
This nurse called at approximately 0120 to update him that the pt has not received the ordered CTA yet and the software sales consultant MD is aware as well. No new orders were received.
[2022-04-13] MEDS: morphine 4 mg/mL SDV 1 mL 2 MG IVP ×3 (02:48→21:29)
[2022-04-13] MEDS: piperacillin-tazobactam 3.375 GM in sodium chloride 0.9% (plus) 50 ML IV ×3 (04:43→21:04)
[2022-04-13] MEDS: dextrose 5%-sod chloride 0.9% 1,000 ML 125 ML IV ×2 (05:47→21:01)
--- NOTE | 2022-04-13 08:05 | XR_ITS ---
WS: [id number] XR chest 1V portable [id number] REASON FOR EXAM: PICC insertion FINDINGS: Right arm PICC line placement. Catheter tip is in the distal superior vena cava near the cavoatrial junction. XR/XR chest 1V portable [id number] IMPRESSION: Properly positioned right arm PICC line. PICC line position was confirmed over the phone with the pet technologist at the time of imaging.
[2022-04-13 09:30] LABS: Eosinophils # 0.1 10^3/uL (0.0-0.8); Eosinophils % 3.7 %; Hematocrit 22.2 % (37.0-47.0); Hemoglobin 7.7 g/dL (11.5-15.3); Lymphocytes # 1.5 10^3/uL (0.8-4.8); Lymphocytes % 39.5 %; Mean Corpuscular HGB Conc 34.7 g/dL (30.0-36.0); Mean Corpuscular Hemoglobin 39.7 pg (28.0-34.0); Mean Corpuscular Volume 114.4 fl (81-99); Mean Platelet Volume 11.1 fL (7.4-10.4); Monocytes # 0.6 10^3/uL (0.2-0.9); Monocytes % 16.8 %; Neutrophils # 1.41 10^3/uL (1.8-7.7); Neutrophils % 36.9 %; Nucleated Red Blood Cells % 0.8 %; Platelet Count 161 10^3/cmm (130-400); Red Blood Count 1.94 10^6/uL (4.1-5.3); Red Cell Distribution Width 16.5 % (12.1-15.1); White Blood Count 3.8 10^3/uL (4.0-10.0)
--- NOTE | 2022-04-13 09:30 | PC.NURSE ---
Triple lumen PICC to right basilic placed without difficulty. Tip in lower third SVC ready to use. Trimmed cath length 36 cm with 3 cm external length noted. Mid arm circumference measured 10 cm from right AC and noted at 30 cm. Dressing due to be changed tomorrow, 04/14/22. Report given to pt care nurseMarisela.
[2022-04-13 09:45] LABS: Alanine Aminotransferase 29 U/L (0-33); Albumin Level 2.6 g/dL (3.5-5.2); Alkaline Phosphatase 133 U/L (35-105); Anion Gap 11.9 (5-19); Aspartate Amino Transferase 83 U/L (0-32); Blood Urea Nitrogen 3 mg/dL (6-20); Calcium 7.8 mg/dL (8.5-10.5); Carbon Dioxide 21 mmol/L (22-29); Chloride 110 mmol/L (98-107); Globulin 3.4 g/dL (1.3-4.6); Glucose 86 mg/dL (65-115); Osmolality Calculated 286 mOsm/kg (285-295); Sodium 140 mmol/L (136-145)
--- NOTE | 2022-04-13 09:45 | CT_ITS ---
WS: [id number] CT ANGIOGRAPHY abdomen and pelvis. HISTORY: ABD PAIN, possible ischemia. TECHNIQUE: CT angiogram is performed during IV injection. Reformation images reviewed. All CT scans a [facility] use at least one of these dose optimization techniques: automated exposure contro l; mA and/or kV adjustment per patient size (includes targeted exams where dose is matched to clinica l indication); or iterative reconstruction. CONTRAST: Omnipaque 350; 100 mL IV. DLP: 776.69 mGy.cm COMPARISON: 10/04/2012, 04/12/2022, 04/07/2022 Normal size heart. Small bilateral pleural effusions slightly decreased in size. Small hiatal hernia. Marked hepatomegaly and hepatic steatosis. Low-attenuation throughout the liver may in part be relate d to hepatic congestion. Prior cholecystectomy. Spleen is unchanged. No change in the common bile lila t. Negative pancreas and adrenal glands. Abnormal RIGHT kidney. The RIGHT kidney is slightly edematous, enlarged with loss of the normal corti fifi enhancement involving the mid and upper kidney. The renal vein is normal. Normal renal artery. Fa vor pyelonephritis. Negative LEFT kidney. Abdominal aorta: Normal aorta. Normal celiac axis and mesenteric artery. No thrombus identified. Norm al renal arteries. Inferior mesenteric artery still patent. Common iliac arteries, internal and exter nal iliac arteries are patent. Ascites has mildly improved especially around the liver since the prior study. There is still a small amount of fluid in the pelvis. Again noted is the abnormal loop of GI tract in the RIGHT adnexa. Thi s may be the cecum deep within the pelvis. This may also be part of the distal small bowel. There may be very slight improvement of the bowel wall thickening in the RIGHT lower quadrant. No free fluid a ir. Prior appendectomy. CT/CT angio abdomen pelvis [id number] IMPRESSION: 1. No evidence for mesenteric ischemic disease. Aorta and mesenteric arteries are widely patent. No thrombus or stenosis. 2. New abnormal enhancement of the RIGHT kidney. Favor pyelonephritis as an et iology. Renal vein was normal on the prior study of 04/12/2022. 3. Small amount of ascites with mild improvement since 04/12/2022. 4. Abnormal loop of GI tract in the RIGHT lower quadrant persists. Improvement in the wall thickening thickening. No perforation.
[2022-04-13 09:51] LABS: Potassium 2.9 mmol/L (3.5-5.1)
[2022-04-13] MEDS: nicotine 7 mg Patch 1 PATCH TRANSDERMA (09:57)
[2022-04-13 10:31] LABS: Slide Review Slide Review Perform
[2022-04-13] MEDS: iohexol 350 mg/mL 500 mL Btl (per mL) IV (11:05)
--- NOTE | 2022-04-13 11:36 | P.PN_ITS ---
Subjective Subjective: CT angio abdomen was ordered yesterday by general surgery. It could not get done since patient was established with IV access for times and every time it infiltrated or did not function properly. A few of those are placed by ultrasound guidance as well. Therefore night hospitalist ordered a PICC line. That was placed this morning. Patient will go for CTA at this point. Still still complains of abdominal pain. Has no improvement. Asking for ice chips. Has been strictly n.p.o. since yesterday. Potassium 2.9 today. IV was ordered. Magnesium also low. Vitals/I&O/Wt Last Vital Signs Temp 97.4 F L 04/13/22 08:00 Pulse 75 04/13/22 08:00 Resp 18 04/13/22 09:57 BP 130/90 04/13/22 08:00 Pulse Ox 99 04/13/22 09:57 O2 Del Method 04/13/22 08:00 O2 Flow Rate 2.5 04/09/22 20:00 04/12/22 04/13/22 04/13/22 22:59 06:59 14:59 Intake Total 1155 / 2445 933.333 / 3378.333 50 / 50 Output Total 1000 / 1000 Balance 1155 / 2445 933.333 / 3378.333 -950 / -950 Physical Exam Narrative: General: Alert oriented x3, patient seen on room air HEENT: Normocephalic, atraumatic, EOMI, Cardio: Regular rate rhythm, normal S1-S2, Respiratory: Clear to auscultation bilaterally no wheezes no rhonchi. GI: Abdomen soft, voluntary guarding present and tender to palpation diffusely. Bowel sounds not appreciated at this time. Says it hurts a lot. Extremities: No edema noted. Data 04/13/22 09:20 04/13/22 09:20 A&P Assessment and plan (1) Pyelonephritis: (2) Sepsis: (3) Alcohol intoxication: (4) Colitis: (5) Acidosis, lactic: (6) Thrombocytopenia: (7) Hypomagnesemia: (8) Ileitis: (9) Anemia: (10) Hypophosphatemia: (11) UTI (urinary tract infection): (12) Gram-negative bacteremia: (13) Nicotine dependence: Plan #Sepsis secondary to UTI present on admission. #Thrombocytopenia secondary to alcohol use #Alcohol abuse #Hypomagnesemia #Ileitis #Chronic macrocytic anemia most likely secondary to alcohol use #Pyelonephritis #UTI #Gram-negative bacteremia with E. coli #History of varices, pancreatitis #Nicotine dependence #Anemia of chronic disease -Presented with fever colitis and pyelonephritis. Blood cultures positive for E. coli 3 out of 4 bottles. Urine culture pansensitive. Patient did require vasopressors briefly in the ICU. -Off vasopressors and on the floor at this time. ? EtOH 26 on admission. Long history of alcohol abuse. Interested in alcoholic rehab at discharge ? Continue patient on Zosyn at this time ? Does have a history of cirrhosis and severe thrombocytopenia secondary to liver disease and alcohol use ? Oxycodone for pain ? Keep patient strictly n.p.o. ? Patient will need 2 weeks of antibiotics. ? Replete magnesium, potassium, phosphorus ? Replete phosphate, K, Mag, Vitamin d -Continue vitamin d 50,000 q7d, potassium 40 IV x1 -Offered nicotine patch - Discussed alcohol cessation and smoking cessation with the patient. Repeat BCx so far NTD CT abdomen pelvis with IV contrast showed - 1.? Abnormal loop of distal small bowel, probably terminal ilium in the RIGHT lower quadrant. This abnormal loop is deep within the pelvis with loss of the normal mucosa and submucosal layers of the small bowel. Increasing edema and wall thickening. Increasing air within the lumen with loss of the normal architecture and increasing adjacent free fluid. Highly suspicious for ischemic changes involving the distal small bowel. There are changes of fecalization suggesting a long-term obstruction. High-grade stricture with ischemic changes. No underlying mass is identified by CT. 2.? Increasing but small amount of ascites and small bilateral pleural effusions and anasarca. 3.? Marked hepatic enlargement and changes of hepatic congestion. 4.? Prior cholecystectomy. 5.? Prior surgical anastomotic sutures in the region of the sigmoid of uncertain etiology. CTA abdomen pelvis was ordered by general surgery for suspicion of mesenteric ischemia. Test has been performed this AM. Awaiting results at this time. Further management to be dictated after the results are reviewed. Full code Continue normal saline at 75 cc/h SCDs Protonix 40 twice daily, sucralfate 1 g twice daily Attestations Medical Necessity Statement*: continue above management Diagnoses Pyelonephritis N12 Sepsis A41.9 Alcohol intoxication F10.929 Colitis K52.9 Acidosis, lactic E87.20 Thrombocytopenia D69.6 Hypomagnesemia E83.42 Ileitis K52.9 Anemia D64.9 Hypophosphatemia E83.39 UTI (urinary tract infection) N39.0 Gram-negative bacteremia R78.81 Nicotine dependence F17.200
[2022-04-13 12:07] LABS: Phosphorus 1.7 mg/dL (2.5-4.5)
[2022-04-13] MEDS: potassium chloride premix 100 ML 25 MEQ IV (13:23)
[2022-04-13] MEDS: magnesium sulfate premix 2 GM/50 ML PIGGYBACK IV (13:24)
[2022-04-13 16:47] LABS: Anion Gap 15.3 (5-19); Blood Urea Nitrogen 3 mg/dL (6-20); Calcium 7.9 mg/dL (8.5-10.5); Carbon Dioxide 18 mmol/L (22-29); Chloride 108 mmol/L (98-107); Glucose 94 mg/dL (65-115); Osmolality Calculated 282 mOsm/kg (285-295); Potassium 3.3 mmol/L (3.5-5.1); Sodium 138 mmol/L (136-145)
[2022-04-13] MEDS: lidocaine 1% 5 ML in potassium chloride premix 100 ML 26.25 ML IV (17:49)
--- NOTE | 2022-04-13 21:14 | PC.NURSE ---
reported abdomen pain 09/21 to pt care nurse Sander RN at [phone]
--- NOTE | 2022-04-13 22:18 | P.PN_ITS ---
Subjective Subjective: CTA done this morning shows no mesenteric ischemia and slight improvement of the bowel in the right lower quadrant. She still has extreme abdominal pain but she tells me that it is always like that. Vitals/I&O/Wt Last Vital Signs Temp 97.9 F 04/13/22 20:00 Pulse 80 04/13/22 20:00 Resp 18 04/13/22 21:29 BP 107/72 04/13/22 20:00 Pulse Ox 98 04/13/22 20:00 O2 Del Method 04/13/22 20:00 O2 Flow Rate 2.5 04/09/22 20:00 FiO2 98 04/13/22 11:37 04/13/22 04/13/22 04/13/22 06:59 14:59 22:59 Intake Total 933.333 / 3378.333 1050 / 1050 320 / 1370 Output Total 1000 / 1000 Balance 933.333 / 3378.333 50 / 50 320 / 370 Physical Exam Narrative: General: No acute distress, awake alert and oriented x3 Abdomen: Soft, mildly distended, diffusely tender to palpation, pain is out of proportion to exam, no rebound Data 04/13/22 09:20 04/13/22 16:18 A&P Assessment and plan (1) Colitis: (2) Abdominal pain: (3) GI bleed: Plan Clear liquid diet Reglan scheduled Ambulate No acute surgical intervention Medical management per hospitalist Attestations Medical Necessity Statement*: Per primary Coding Level of Care Code Acute Code for [facility] Diagnoses Colitis K52.9 Abdominal pain R10.9 GI bleed K92.2
[2022-04-13] MEDS: metoclopramide 5 mg/mL SDV 2 mL IVP (22:49)
[2022-04-14] VITALS (20 sets, daily range): BP systolic 109–159; BP diastolic 69–128; PULSE 78–94; RESP 15–20; TEMP 36.1–37; O2SAT 94–100
[2022-04-14] MEDS: pantoprazole 40 mg SDV IVP (02:06)
[2022-04-14] MEDS: morphine 4 mg/mL SDV 1 mL 2 MG IVP ×4 (02:18→21:06)
[2022-04-14] MEDS: dextrose 5%-sod chloride 0.9% 1,000 ML 125 ML IV (04:52)
[2022-04-14] MEDS: metoclopramide 5 mg/mL SDV 2 mL IVP ×4 (04:52→22:02)
[2022-04-14 05:27] LABS: Eosinophils # 0.1 10^3/uL (0.0-0.8); Eosinophils % 2.9 %; Hemoglobin 6.7 g/dL (11.5-15.3); Lymphocytes # 1.3 10^3/uL (0.8-4.8); Mean Corpuscular HGB Conc 33.5 g/dL (30.0-36.0); Mean Corpuscular Hemoglobin 38.5 pg (28.0-34.0); Mean Corpuscular Volume 114.9 fl (81-99); Mean Platelet Volume 11.2 fL (7.4-10.4); Monocytes # 0.6 10^3/uL (0.2-0.9); Monocytes % 14.8 %; Neutrophils # 2.07 10^3/uL (1.8-7.7); Neutrophils % 49.1 %; Nucleated Red Blood Cells % 0 %; Platelet Count 180 10^3/cmm (130-400); Red Blood Count 1.74 10^6/uL (4.1-5.3); Red Cell Distribution Width 17.1 % (12.1-15.1); White Blood Count 4.2 10^3/uL (4.0-10.0)
[2022-04-14 05:50] LABS: Alanine Aminotransferase 25 U/L (0-33); Albumin Level 2.3 g/dL (3.5-5.2); Alkaline Phosphatase 122 U/L (35-105); Aspartate Amino Transferase 72 U/L (0-32); Blood Urea Nitrogen 2 mg/dL (6-20); Calcium 6.8 mg/dL (8.5-10.5); Carbon Dioxide 19 mmol/L (22-29); Chloride 113 mmol/L (98-107); Glucose 469 mg/dL (65-115); Magnesium 1.4 mg/dL (1.7-2.3); Osmolality Calculated 309 mOsm/kg (285-295); Phosphorus 1.4 mg/dL (2.5-4.5); Sodium 141 mmol/L (136-145); Total Bilirubin 1.6 mg/dL (0.15-1.2); Total Protein 5.3 g/dL (6.6-8.7)
[2022-04-14] MEDS: piperacillin-tazobactam 3.375 GM in sodium chloride 0.9% (plus) 50 ML IV ×2 (05:55→22:46)
[2022-04-14 07:09] LABS: Slide Review Slide Review Perform
[2022-04-14] MEDS: nicotine 7 mg Patch 1 PATCH TRANSDERMA (10:04)
[2022-04-14] MEDS: magnesium sulfate premix 4 GM/100 ML PREMIX IV (10:19)
[2022-04-14] MEDS: potassium phosphate (mEq K) 40 MEQ in sodium chloride 0.9% (100 ml) 100 ML 27.25 MEQ IV (10:20)
--- NOTE | 2022-04-14 12:18 | PM.PN ---
Subjective Subjective: Seen today. Patient to go for EGD at 1 pm abd pain improved hb 6.7. will be given 1 unit prbc Vitals/I&O/Wt Last Vital Signs Temp 98.2 F 04/14/22 11:30 Pulse 78 04/14/22 11:30 Resp 18 04/14/22 11:30 BP 132/81 04/14/22 11:30 Pulse Ox 97 04/14/22 11:30 O2 Del Method 04/14/22 11:22 O2 Flow Rate 2.5 04/09/22 20:00 FiO2 98 04/13/22 11:37 04/13/22 04/14/22 04/14/22 22:59 06:59 14:59 Intake Total 425 / 1475 1031.25 / 2506.25 290 / 290 Balance 425 / 475 1031.25 / 1506.25 290 / 290 Physical Exam Narrative: General: Alert oriented x3, patient seen on room air HEENT: Normocephalic, atraumatic, EOMI, Cardio: Regular rate rhythm, normal S1-S2, Respiratory: Clear to auscultation bilaterally no wheezes no rhonchi. GI: Abdomen soft,non tender to palpation diffusely. Bowel sounds present. Extremities: No edema noted. Data 04/14/22 04:49 04/14/22 04:49 A&P Assessment and plan (1) Pyelonephritis: (2) Sepsis: (3) Alcohol intoxication: (4) Colitis: (5) Acidosis, lactic: (6) Thrombocytopenia: (7) Hypomagnesemia: (8) Ileitis: (9) Anemia: (10) Hypophosphatemia: (11) UTI (urinary tract infection): (12) Gram-negative bacteremia: (13) Nicotine dependence: Plan #Sepsis secondary to UTI present on admission. #Thrombocytopenia secondary to alcohol use #Alcohol abuse #Hypomagnesemia #Ileitis #Chronic macrocytic anemia most likely secondary to alcohol use #Pyelonephritis #UTI #Gram-negative bacteremia with E. coli #History of varices, pancreatitis #Nicotine dependence #Anemia of chronic disease #Hypophosphatemia #hypomagnesemia -Presented with fever colitis and pyelonephritis. Blood cultures positive for E. coli 3 out of 4 bottles. Urine culture pansensitive. Patient did require vasopressors briefly in the ICU. -Off vasopressors and on the floor at this time. ? EtOH 26 on admission. Long history of alcohol abuse. Interested in alcoholic rehab at discharge ? Continue patient on Zosyn at this time ? Does have a history of cirrhosis and severe thrombocytopenia secondary to liver disease and alcohol use ? Oxycodone for pain ? Patient will need 2 weeks of antibiotics. ? Replete magnesium, potassium, phosphorus ? Replete phosphate, K, Mag, Vitamin d -Continue vitamin d 50,000 q7d, potassium 40 IV x1 -Offered nicotine patch - Discussed alcohol cessation and smoking cessation with the patient. Repeat BCx so far NTD CT abdomen pelvis with IV contrast showed - 1.? Abnormal loop of distal small bowel, probably terminal ilium in the RIGHT lower quadrant. This abnormal loop is deep within the pelvis with loss of the normal mucosa and submucosal layers of the small bowel. Increasing edema and wall thickening. Increasing air within the lumen with loss of the normal architecture and increasing adjacent free fluid. Highly suspicious for ischemic changes involving the distal small bowel. There are changes of fecalization suggesting a long-term obstruction. High-grade stricture with ischemic changes. No underlying mass is identified by CT. 2.? Increasing but small amount of ascites and small bilateral pleural effusions and anasarca. 3.? Marked hepatic enlargement and changes of hepatic congestion. 4.? Prior cholecystectomy. 5.? Prior surgical anastomotic sutures in the region of the sigmoid of uncertain etiology. CTA abdomen pelvis was ordered by general surgery for suspicion of mesenteric ischemia. Mesenteric ischemia ruled out. Shows right sided pyelonephritis. Feels better today. 1 unit prbc to be given. repeat hb in evening check fobt. start on lactulose as patient is constipated. EGD at 1 pm today. Tx low K and P with P phosphate IV. Full code Continue normal saline at 75 cc/h SCDs Protonix 40 twice daily, sucralfate 1 g twice daily Attestations Medical Necessity Statement*: continue above management Coding Level of Care Code Acute Code for [facility] Diagnoses Pyelonephritis N12 Sepsis A41.9 Alcohol intoxication F10.929 Colitis K52.9 Acidosis, lactic E87.20 Thrombocytopenia D69.6 Hypomagnesemia E83.42 Ileitis K52.9 Anemia D64.9 Hypophosphatemia E83.39 UTI (urinary tract infection) N39.0 Gram-negative bacteremia R78.81 Nicotine dependence F17.200
--- NOTE | 2022-04-14 12:37 | W.PM.OPSUD ---
Surgery/Procedure H&P Update DATE OF PROCEDURE: April 14, 2022 DATE H&P PERFORMED: 04/12/22 H&P UPDATE INFORMATION: I have reviewed H&P completed within last 30 days, I have examined patient prior to procedure and Changes to prior documentation as noted here (EGD - The risks and benefits of the procedure, including bleeding, infection, intestinal perforation requiring surgery, missed lesion were explained to the patient. The patient is understanding of the risks and wishes to proceed.) PREOP DIAGNOSIS: Nausea vomiting and abdominal pain PLANNED PROCEDURE: Operation Date: 04/14/22 13:00 Proposed Procedures p EGD(Not Applicable) - Todd Sorto DO
--- NOTE | 2022-04-14 12:44 | P.ANESASSM_ITS ---
Pre-Anesthetic Assessment Height/Weight: Height 1.63 m Weight 80.739 kg Temp Pulse Resp BP Pulse Ox O2 Del Method O2 Flow Rate 96.9 F L 80 16 124/73 98 2.5 04/14/22 12:27 04/14/22 12:27 04/14/22 12:27 04/14/22 12:27 04/14/22 12:27 04/14/22 12:27 04/09/22 20:00 FiO2 98 04/13/22 11:37 Preop Diagnosis: Nausea vomiting and abdominal pain Operation Date: 04/14/22 13:00 Proposed Procedures p EGD(Not Applicable) - Todd Sorto DO Familial anesthetic complications: none Was Beta Joaquina taken within 24 hours: N/A Was Clonidine taken within 24 hours: N/A Social Alcohol (history of abuse) and Tobacco Exam alert, oriented x 3, clear to auscultation bilaterally and regular rate & rhythm Airway Submandibular: within normal limits Cervical ROM: within normal limits Mallampati: Class I Dentition: false Pulmonary Chronic Obstructive Pulmonary Disease, Sleep Apnea and Shortness of Breath CV/HEM Anemia and Peripheral Vascular Disease tubes in right kidney Hepatic Cirrhosis GI Gastroesophageal Reflux Disease Metabolic Thyroid Disease Musc/skel Lower Back Pain and Osteoarthritis/DJD Neuropsych Seizure Anesthetic Plan ASA status: 3 Anesthesia: MAC Risk of > 500 ml blood loss (7ml/kg in children): No Medications/Allergies Home Medications Medication Instructions Recorded Confirmed Last Taken Type omeprazole 40 mg capsule,delayed 40 mg PO BID 10/18/21 04/07/22 01/13/22 History release levetiracetam 500 mg tablet 500 mg PO BID #60 tabs 04/05/22 04/07/22 Unknown Rx (Keppra) albuterol sulfate 90 mcg/actuation 2 puff inhalation Q6H PRN 04/07/22 04/07/22 Unknown History aerosol inhaler Shortness Of Breath aspirin 325 mg tablet 325 mg PO BID PRN Chest Pain 04/07/22 04/07/22 Unknown History sucralfate 1 gram tablet 1 g PO .UP TO BID 04/07/22 04/07/22 Unknown History Allergies Allergy/AdvReac Type Severity Reaction Status Date / Time codeine Allergy ALGY-Hives Verified 04/07/22 10:42 ketorolac [From Toradol] Allergy ALGY-Rash Verified 04/07/22 10:42 naproxen [From Naprosyn] Allergy ADR-Vomitin Verified 04/07/22 10:42 g prochlorperazine Allergy ALGY-Swell Verified 04/07/22 10:42 [From Compazine] Lip/Tongue/Throat Penicillins AdvReac Intermediate ADR-Vomitin Verified 04/07/22 10:42 g Current Medications Generic Name Dose Route Start Last Admin Trade Name Freq PRN Reason Stop Dose Admin Acetaminophen 650 mg 04/07/22 13:21 04/08/22 22:03 Acetaminophen 325 Mg Tablet PO 650 mg Q6H PRN Administration Mild/Mod Pain Or Temp >/= 101 Ergocalciferol 50,000 unit 04/11/22 08:00 04/11/22 08:59 Ergocalciferol (Vitamin D2) 50,000 Unit Capsule PO 50,000 unit Q7D ANNETTA Administration Folic Acid 1 mg 04/08/22 09:00 04/14/22 10:25 Folic Acid 1 Mg Tablet PO Not Given DAILY [facility] Piperacillin Sod/Tazobactam 50 mls @ 12.5 mls/hr 04/07/22 22:45 04/14/22 10:30 Sod 3.375 gm/ Sodium Chloride IV Infused Q8H ANNETTA Infusion Protocol Potassium Phosphate 40 meq/ 109.0909 mls @ 27.25 mls/hr 04/14/22 09:30 04/14/22 10:20 Sodium Chloride IV 04/14/22 13:30 27.25 mls/hr ONCE ONE Administration Lactulose 15 gm 04/14/22 08:30 04/14/22 10:24 Lactulose Oral Liq 20 Gm/30 Ml Udc PO Not Given Q12H [facility] Protocol Metoclopramide HCl 5 mg 04/13/22 22:30 04/14/22 10:03 Metoclopramide 5 Mg/Ml Sdv 2 Ml IVP 5 mg Q6H ANNETTA Administration Morphine Sulfate 2 mg 04/12/22 15:20 04/14/22 10:28 Morphine 4 Mg/Ml Sdv 1 Ml IVP 2 mg Q4H PRN Administration SEVERE PAIN Multivitamins Therapeutic 1 tab 04/08/22 09:00 04/14/22 10:25 Multivitamin Therapeutic Tablet PO Not Given DAILY [facility] Nicotine 1 patch 04/11/22 13:34 04/14/22 10:04 Nicotine 7 Mg Patch TRANSDERMA 1 patch DAILY ANNETTA Administration Ondansetron HCl 4 mg 04/07/22 13:21 04/10/22 23:53 Ondansetron 2 Mg/Ml Sdv 2 Ml IVP 4 mg Q8H PRN Administration vomiting, or N/V if npo Pantoprazole Sodium 40 mg 04/07/22 13:30 04/14/22 02:06 Pantoprazole 40 Mg Sdv IVP 40 mg Q12H ANNETTA Administration Thiamine Mononitrate 100 mg 04/08/22 09:00 04/14/22 10:26 Thiamine 100 Mg Tablet PO Not Given DAILY ANNETTA PFSH Anesthesia Medical History (Updated 04/13/22 @ 00:01 by LISETH Norwood) Abdominal pain Abdominal pain Abdominal pain Acute dehydration Acute hypokalemia KATRIN (acute kidney injury) Alcohol dependence Alcohol dependence with withdrawal Alcohol use disorder Alcohol withdrawal Alcoholic gastritis Alcoholic hepatitis Alcoholic ketoacidosis Alcoholism Anemia Anxiety Carpal tunnel syndrome Chronic alcoholic hepatitis Chronic back pain Chronic pancreatitis Cirrhosis Enteritis Fracture of proximal phalanx of right thumb Gastritis GERD (gastroesophageal reflux disease) H. pylori infection Hepatitis A Hypokalemia Hypokalemia Hypomagnesemia Intractable nausea and vomiting Intractable nausea and vomiting Macrocytic anemia Nausea & vomiting Nausea and vomiting Pancytopenia Pancytopenia Sciatica Small bowel obstruction, partial Thrombocytopenia Tobacco dependency Urinary tract infection Surgical History H/O rotator cuff surgery H/O: hysterectomy History of appendectomy History of cholecystectomy Family History Denies family history of Diabetes CAD (coronary artery disease) Dementia Social History Smoking and tobacco status: current every day smoker Alcohol intake: current Alcohol intake frequency: 3 or more drinks per day Alcohol type: hard liquor Desire information about alcohol rehabilitation?: No Current occupation: On disability Data Anesthesia 04/14/22 04:49 04/14/22 04:49 Short CBC 04/13/22 04/14/22 Range/Units 09:20 04:49 WBC 3.8 L 4.2 (4.0-10.0) 10^3/uL Hgb 7.7 L 6.7 L (11.5-15.3) g/dL Hct 22.2 L 20.0 L* (37.0-47.0) % MCV 114.4 H 114.9 H (81-99) fl Plt Count 161 D 180 (130-400) 10^3/cmm Neut % (Auto) 36.9 49.1 % Neut # (Auto) 1.41 L 2.07 (1.8-7.7) 10^3/uL BMP 04/13/22 04/13/22 04/14/22 09:20 16:18 04:49 Sodium 140 138 141 Potassium 2.9 L 3.3 L 3.0 L Chloride 110 H 108 H 113 H Carbon Dioxide 21 L 18 L 19 L BUN 3 L 3 L 2 L Creatinine 0.4 L 0.4 L 0.4 L Glucose 86 94 469 H Calcium 7.8 L 7.9 L 6.8 L Liver Function 04/13/22 04/14/22 Range/Units 09:20 04:49 Total Bilirubin 2.0 H 1.6 H (0.15-1.2) mg/dL AST 83 H 72 H (0-32) U/L ALT 29 25 (0-33) U/L Alkaline Phosphatase 133 H 122 H (35-105) U/L Albumin 2.6 L 2.3 L (3.5-5.2) g/dL Blood Bank 04/14/22 08:58 Blood Type A Positive Rho(D) Type Positive Antibody Screen Negative Cardiac Studies: No Data to Display
[2022-04-14] MEDS: sodium chloride 0.9% 1,000 ML 30 ML IV (12:47)
--- NOTE | 2022-04-14 12:48 | PC.NURSE ---
PICC dressing change completed to right upper arm PICC. Pt tolerated well.
--- NOTE | 2022-04-14 13:07 | SUR.OPER ---
clip placed in duodenal bx location
--- NOTE | 2022-04-14 15:52 | ANE.PACU2 ---
Inpatient post-anesthesia follow up: Airway intact: Yes Vital signs: Temperature 97 F Pulse Rate 87 Respiratory Rate 16 Blood Pressure 159/128 Pulse Oximetry 96 Oxygen Delivery Me thod Room Air Oxygen Flow Rate 3 Fraction of Inspir ed Oxygen 98 Hydration adequate: Yes Nausea and vomiting: No Pain level: 2 Mental status: Baseline
[2022-04-14] MEDS: lactulose oral liq 20 gm/30 mL UDC 15 GM PO (21:23)
[2022-04-15] MEDS: pantoprazole 40 mg SDV IVP (00:48)
[2022-04-15] MEDS: ondansetron 2 mg/ML SDV 2 mL 4 MG IVP (00:50)
[2022-04-15 01:28] VITALS: RESP 16
[2022-04-15] MEDS: morphine 4 mg/mL SDV 1 mL 2 MG IVP ×2 (01:28→08:47)
[2022-04-15 03:36] VITALS: BP 132/96; PULSE 86; RESP 16; TEMP 36.7; O2SAT 98
[2022-04-15] MEDS: metoclopramide 5 mg/mL SDV 2 mL IVP (05:01)
[2022-04-15 05:03] LABS: Basophils % 0.6 %; Eosinophils # 0.1 10^3/uL (0.0-0.8); Eosinophils % 1.9 %; Hematocrit 23.4 % (37.0-47.0); Hemoglobin 7.9 g/dL (11.5-15.3); Lymphocytes # 1.3 10^3/uL (0.8-4.8); Lymphocytes % 24.8 %; Mean Corpuscular HGB Conc 33.8 g/dL (30.0-36.0); Mean Corpuscular Hemoglobin 36.2 pg (28.0-34.0); Mean Corpuscular Volume 107.3 fl (81-99); Mean Platelet Volume 10.9 fL (7.4-10.4); Monocytes # 0.6 10^3/uL (0.2-0.9); Monocytes % 11.2 %; Neutrophils # 3.15 10^3/uL (1.8-7.7); Neutrophils % 60.9 %; Nucleated Red Blood Cells % 0 %; Platelet Count 222 10^3/cmm (130-400); Red Blood Count 2.18 10^6/uL (4.1-5.3); Red Cell Distribution Width 22.6 % (12.1-15.1); White Blood Count 5.2 10^3/uL (4.0-10.0)
[2022-04-15 05:20] LABS: Anion Gap 11.4 (5-19); Blood Urea Nitrogen 2 mg/dL (6-20); Calcium 7.5 mg/dL (8.5-10.5); Carbon Dioxide 20 mmol/L (22-29); Chloride 110 mmol/L (98-107); Glomerular Filtration Rate 129.1 mL/min (90-130); Glucose 82 mg/dL (65-115); Magnesium 1.7 mg/dL (1.7-2.3); Osmolality Calculated 281 mOsm/kg (285-295); Phosphorus 2.7 mg/dL (2.5-4.5); Potassium 3.4 mmol/L (3.5-5.1); Sodium 138 mmol/L (136-145)
[2022-04-15] MEDS: piperacillin-tazobactam 3.375 GM in sodium chloride 0.9% (plus) 50 ML IV (05:38)
[2022-04-15 06:00] VITALS: PULSE 63
[2022-04-15 07:51] VITALS: BP 132/91; PULSE 89; RESP 18; TEMP 36.8; O2SAT 98
[2022-04-15 08:47] VITALS: RESP 18; O2SAT 98
[2022-04-15] MEDS: folic acid 1 mg Tablet PO (08:47)
[2022-04-15] MEDS: thiamine 100 mg Tablet PO (08:47)
[2022-04-15] MEDS: multivitamin therapeutic Tablet 1 TAB PO (08:47)
--- NOTE | 2022-04-15 09:03 | PM.DCS ---
Discharge Providers Date of Admission: 04/07/22 13:20 Date of Discharge: April 15, 2022 Attending Provider at Admission: Rodo Ortega DO Attending Provider at Discharge: Araceli Talavera MD Primary Care Provider: Aditya Degroot DO Diagnoses at Discharge Discharge Diagnosis (1) Pyelonephritis: Status: Acute (2) Sepsis: Status: Acute (3) Alcohol intoxication: Status: Inactive (4) Colitis: Status: Acute (5) Acidosis, lactic: Status: Acute (6) Thrombocytopenia: Status: Acute (7) Hypomagnesemia: Status: Acute (8) Ileitis: Status: Acute (9) Anemia: Status: Acute (10) Hypophosphatemia: Status: Acute (11) UTI (urinary tract infection): Status: Acute (12) Gram-negative bacteremia: Status: Acute (13) Nicotine dependence: Status: Acute Reason for Visit Reason for Visit: abd pain Brief History: As per Dr. Ortega Melissa Portillo is a 51 year old female with PMH of cirrhosis, EtOH abuse, pancreatitis, varices,? who presented to ER today with fever, abdominal pain, n/v and blood in stool.? Significant other is present to assist with history. ? Reports symptoms starting 2 days ago, with N/V, followed by fever.? She was seen in ER 2 days prior with abdominal cramping and EtOH intoxication.? At that time, her EtOH level was over 300.? She endorses having some blood in her stool for several days as well as hematemesis this morning.? She says that she has been unable to eat or drink for the last 12 hours.? In the ER, she was noted to have a temperature of 100.1 and was tachycardic into the 120-130's.? Labs show WBC of 10.1, up from 4.1 two days prior.? She is chronically anemic with Hgb at 10.6 today.? Na down to 132, K at 3.1. ? She has an elevated Lactate to 4.0, transaminitis, and metabolic acidosis, anion gap to 28.1.? CT scan demonstrated a Distal ileitis with colitis of the right and proximal transverse colon. Distal ileitis with colitis of the right and proximal transverse colon, and small amount of free fluid in pelvis, but no other ascites.? Also of note was some stranding around the Right kidney suggestive of pyelonephritis.? She was started on prophylactic Abx and given IVF's.? Hospital Course Hospital Course Patient's records from [facility] reviewed. Admitted to [facility] March 2021 with complaints of intermittent abdominal pain persistent vomiting, diarrhea. She was given Cipro and Flagyl however she did not complete it due to vomiting. Patient was given outpatient EGD colonoscopy referral when discharged after symptomatic treatment. EGD 03/31 2021 normal esophagus normal stomach normal examined duodenum. Colonoscopy 04/01 2021 showed internal hemorrhoids, 112 mm polyp in proximal ascending colon removed with cold snare resected and retrieved. Biopsies taken with cold forceps from ascending colon for evaluation of microscopic colitis. She had another colonoscopy done the next day on the which showed a large blood clot in proximal ascending colon and region of recent polypectomy. Blood clot was removed using a snare. There was presence of 3 protruding blood vessels with active oozing of red blood. 3 resolution hemostatic clips were deployed with excellent hemostasis. Admitted to [facility] August 2021 with abdominal pain nausea vomiting. Carried a diagnosis history of C. difficile, chronic pancreatitis gastritis. Severe alcohol withdrawal. She was treated and discharged. Patient was admitted at [facility] 14 September 2021 for complaint of abdominal pain nausea vomiting. She was diagnosed with cyclic vomiting syndrome, pancreatitis, alcoholic gastritis. She had severe electrolyte abnormalities. They were all corrected and patient was discharged home. She saw gastroenterology in September 2021 with complaints of abdominal pain nausea vomiting. EGD and colonoscopy were grossly unremarkable. She did endorse a history of maternal grandmother being diagnosed with colorectal cancer in 50s and biological father with colon cancer diagnosis in his 30s. CT abdomen pelvis done in August 2021 showed hepatomegaly and fatty infiltration of the liver no CT specific findings to indicate pancreatitis Patient was advised to increase omeprazole to 40 twice a day add Pepcid 40 daily, Carafate up to 4 times a day. She was counseled heavily to refrain from alcohol use. Patient now admitted here at [facility] for complaints of abdominal cramping nausea vomiting followed by a fever. She also had alcohol intoxication with level over [address] abdomen pelvis was done which showed distal ileitis with colitis of right and proximal transverse colon. Small amount of free fluid in pelvis but no other ascites. Some stranding around right kidney suggestive of pyelonephritis. She was diagnosed with a UTI as well. Blood cultures 3 out of 4 bottles positive for E. coli. Repeat cultures were negative. She had severe electrolyte abnormalities and potassium magnesium and phosphorus repleted on daily basis. Vitamin D level was found to be low and that was repleted as well. She was offered a nicotine patch. Alcohol cessation and smoking cessation was discussed with the patient. Her diet was slowly advanced to GI soft diet. Patient developed abdominal pain that was out of proportion to her exam. CT abdomen pelvis with IV contrast was done which showed abnormal loop of distal small bowel and terminal ileum right lower quadrant. Highly suspicious for ischemic changes. High-grade stricture with ischemic changes. General surgery consultation was obtained and there is suspicion for mesenteric ischemia. CT angio abdomen was performed which ruled out mesenteric ischemia. I did show right-sided pyelonephritis consistent with read from admission. During hospital stay patient's hemoglobin slowly trickle down to 6.7 and she required 1 unit of blood transfusion. She was taken for EGD which showed a healing duodenal ulcer and alcohol gastropathy. Area was biopsied and it did bleed a little therefore it was clipped and the bleeding stopped. Patient was eventually transitioned over to a bland diet which she is tolerating. She has been placed on lactulose for constipation. Patient feels better today and requesting to go home. We will discharge her home with follow-up with gastroenterology in [place] with Dr. Hernandez who she has seen twice in the past year. She has been encouraged to stop alcohol use. For gram-negative bacteremia she remained on Zosyn during hospital stay. Blood culture and urine culture are both growing E. coli pansensitive. I will place him on cefuroxime as an outpatient to complete a 14-day course. She may need repeat CT abd in 2 weeks to eval pyelonephritis status. I will send copy of dc summary to PCP for follow up. Physical Exam Narrative: General: Alert oriented x3, patient seen on room air HEENT: Normocephalic, atraumatic, EOMI, Cardio: Regular rate rhythm, normal S1-S2, Respiratory: Clear to auscultation bilaterally no wheezes no rhonchi. GI: Abdomen soft,non tender to palpation diffusely. Bowel sounds present. Extremities: No edema noted. Discharge Data Studies Completed and Pending Completed Studies During Hospitalization Category Date Time Status CT abdomen pelvis w con* [id number] Stat Cat Scan 04/07/22 09:[address] abdomen pelvis w con* [id number] Stat Cat Scan 04/12/22 09:[address] angio abdomen pelvis [id number] Stat Cat Scan 04/13/22 09:45 Completed CXRP [XR chest 1V portable [id number]] Routine Exams 04/13/22 08:05 Completed XR KUB portable [id number] Stat Exams 04/11/22 17:46 Completed XR chest 1V portable [id number] Urgent Exams 04/07/22 09:22 Completed Pending at discharge Category Date Time Status Blood Culture Stat Lab 04/10/22 13:55 Results Occult Blood Stool [Immunochemical Fecal OCB] Routine Lab 04/10/22 13:29 Uncollected Pathology: Surgical [PTH] Routine Pth 04/14/22 13:09 Received Radiology Impressions KUB X-Ray 04/11/22 17:46 IMPRESSION: No acute findings. Abdomen/Pelvis CT 04/12/22 09:07 IMPRESSION: 1. Abnormal loop of distal small bowel, probably terminal ilium in the RIGHT lower quadrant. This abnormal loop is deep within the pelvis with loss of the normal mucosa and submucosal layers of the small bowel. Increasing edema and wall thickening. Increasing air within the lumen with loss of the normal architecture and increasing adjacent free fluid. Highly suspicious for ischemic changes involving the distal small bowel. There are changes of fecalization suggesting a long-term obstruction. High-grade stricture with ischemic changes. No underlying mass is identified by CT. 2. Increasing but small amount of ascites and small bilateral pleural effusions and anasarca. 3. Marked hepatic enlargement and changes of hepatic congestion. 4. Prior cholecystectomy. 5. Prior surgical anastomotic sutures in the region of the sigmoid of uncertain etiology. Notified Araceli MD Sadaf at 04/12/2022 10:36 AM. Chest X-Ray 04/13/22 08:05 IMPRESSION: Properly positioned right arm PICC line. PICC line position was confirmed over the phone with the director of radiology at the time of imaging. Abdomen/Pelvis CTA 04/13/22 09:45 IMPRESSION: 1. No evidence for mesenteric ischemic disease. Aorta and mesenteric arteries are widely patent. No thrombus or stenosis. 2. New abnormal enhancement of the RIGHT kidney. Favor pyelonephritis as an etiology. Renal vein was normal on the prior study of 04/12/2022. 3. Small amount of ascites with mild improvement since 04/12/2022. 4. Abnormal loop of GI tract in the RIGHT lower quadrant persists. Improvement in the wall thickening thickening. No perforation. Laboratory Results WBC 5.2 10^3/uL (4.0-10.0) 04/15/22 04:56 Corrected WBC Cancelled 04/10/22 13:55 RBC 2.18 10^6/uL (4.1-5.3) L 04/15/22 04:56 Hgb 7.9 g/dL (11.5-15.3) L 04/15/22 04:56 Hct 23.4 % (37.0-47.0) L 04/15/22 04:56 MCV 107.3 fl (81-99) H D 04/15/22 04:56 MCH 36.2 pg (28.0-34.0) H 04/15/22 04:56 MCHC 33.8 g/dL (30.0-36.0) 04/15/22 04:56 RDW 22.6 % (12.1-15.1) H 04/15/22 04:56 Plt Count 222 10^3/cmm (130-400) 04/15/22 04:56 MPV 10.9 fL (7.4-10.4) H 04/15/22 04:56 Gran % Cancelled 04/10/22 13:55 Neut % (Auto) 60.9 % 04/15/22 04:56 Lymph % (Auto) 24.8 % 04/15/22 04:56 [place] % (Auto) 11.2 % 04/15/22 04:56 Eos % (Auto) 1.9 % 04/15/22 04:56 Baso % (Auto) 0.6 % 04/15/22 04:56 Neut # (Auto) 3.15 10^3/uL (1.8-7.7) 04/15/22 04:56 Lymph # (Auto) 1.3 10^3/uL (0.8-4.8) 04/15/22 04:56 [place] # (Auto) 0.6 10^3/uL (0.2-0.9) 04/15/22 04:56 Eos # (Auto) 0.1 10^3/uL (0.0-0.8) 04/15/22 04:56 Baso # (Auto) 0.0 10^3/uL (0.0-0.1) 04/15/22 04:56 Absolute Gran (auto) Cancelled 04/10/22 13:55 Nucleated RBC % (auto) 0 % 04/15/22 04:56 Total Counted 100 (0-100) 04/12/22 05:42 Atypical Lymphs % 3.0 % (0-5) 04/12/22 05:42 Absolute Neutrophils 1.0 10^3/cmm (1.4-6.5) L 04/12/22 05:42 Segmented Neutrophils 31 % 04/12/22 05:42 Abs Segm Neuts (Man) 1.0 10/cmm (1.6-7.1) L 04/12/22 05:42 Band Neutrophils 0.0 % 04/12/22 05:42 Abs Band Neuts (Man) 0.0 10^3/cmm (0.0-1.2) 04/12/22 05:42 Absolute Lymphocytes 1.6 10^3/cmm (1.2-3.4) 04/12/22 05:42 Lymphocytes (Manual) 45 % 04/12/22 05:42 Monocytes (Manual) 17.0 % 04/12/22 05:42 Absolute Monocytes 0.6 10^3/cmm (0.1-0.6) 04/12/22 05:42 Eosinophils (Manual) 3 % 04/12/22 05:42 Absolute Eosinophils 0.0 10^3/cmm (0.0-0.7) 04/12/22 05:42 Basophils (Manual) 0.0 % 04/12/22 05:42 Absolute Basophils 0.0 10^3/cmm (0.0-0.2) 04/12/22 05:42 Metamyelocytes 0.0 % 04/12/22 05:42 Myelocytes 1.0 % 04/12/22 05:42 Promyelocytes 0.0 % 04/12/22 05:42 Nucleated RBCs 1.0 /100WBC (0-1) 04/12/22 05:42 Nucleated RBCs # 0.0 /100WBC 04/15/22 04:56 Platelet Estimate Decreased (Normal) L 04/12/22 05:42 Anisocytosis 1+ H 04/12/22 05:42 Macrocytosis 1+ H 04/12/22 05:42 Specimen Type Arterial 04/12/22 11:20 Sample Site Brachial, right 04/12/22 11:20 ABG pH 7.46 (7.35-7.45) H 04/12/22 11:20 ABG pCO2 26.2 mmHg (35-45) L 04/12/22 11:20 ABG pO2 86.4 mmHg (80.0-100.0) 04/12/22 11:20 ABG HCO3 18.8 mmol/L (22-26) L 04/12/22 11:20 ABG O2 Saturation 98.1 04/12/22 11:20 ABG Base Excess -4.1 mmol/L (-2.0-2.0) L 04/12/22 11:20 Tato Test Pos 04/12/22 11:20 A-a O2 Gradient 3.7 mmHg (5-10) L 04/12/22 11:20 Hematocrit 26.7 % (37-47) L 04/12/22 11:20 Hgb O2 Saturation 96.7 % (95-100) 04/12/22 11:20 Carboxyhemoglobin 1.1 %THgb (0.4-20.1) 04/12/22 11:20 Methemoglobin 0.4 % (0.4-1.5) 04/12/22 11:20 Total Hemoglobin 8.7 g/dL (12-16) L 04/12/22 11:20 Sodium 141.0 mmol/L (131-143) 04/12/22 11:20 Potassium 2.9 mmol/L (3.5-5.0) L 04/12/22 11:20 Glucose 108.0 mg/dL (70-115) 04/12/22 11:20 Ionized Calcium 1.2 mmol/L (1.1-1.4) 04/12/22 11:20 O2 Delivery Device Room air 04/12/22 11:20 FiO2 21.0 % 04/12/22 11:20 Director Of [employer] Giving ID [place] 04/12/22 11:20 Sodium 138 mmol/L (136-145) 04/15/22 04:56 Potassium 3.4 mmol/L (3.5-5.1) L 04/15/22 04:56 Chloride 110 mmol/L (98-107) H 04/15/22 04:56 Carbon Dioxide 20 mmol/L (22-29) L 04/15/22 04:56 Anion Gap 11.4 (5-19) 04/15/22 04:56 BUN 2 mg/dL (6-20) L 04/15/22 04:56 Creatinine 0.5 mg/dL (0.5-0.9) 04/15/22 04:56 GFR Calculation 129.1 mL/min (90-130) 04/15/22 04:56 Glucose 82 mg/dL (65-115) 04/15/22 04:56 Calculated Osmolality 281 mOsm/kg (285-295) L 04/15/22 04:56 Lactic Acid 2.3 mmol/L (0.5-2.2) H 04/08/22 04:45 Lactic Acid (Sepsis) 2.8 mmol/L (0.5-2.2) H 04/08/22 07:56 Lactate 1.8 mmol/L (0.5-2.2) 04/12/22 11:08 Calcium 7.5 mg/dL (8.5-10.5) L 04/15/22 04:56 Phosphorus 2.7 mg/dL (2.5-4.5) 04/15/22 04:56 Magnesium 1.7 mg/dL (1.7-2.3) 04/15/22 04:56 Iron 155 ug/dL (37-145) H 04/10/22 13:55 TIBC 172 mcg/dl 04/10/22 13:55 % Saturation 90.1 % (20-50) H 04/10/22 13:55 Unsat Iron Binding < 17 ug/dL (112-347) L 04/10/22 13:55 Ferritin 327 ng/mL (15-150) H 04/10/22 13:55 Total Bilirubin 1.6 mg/dL (0.15-1.2) H 04/14/22 04:49 AST 72 U/L (0-32) H 04/14/22 04:49 ALT 25 U/L (0-33) 04/14/22 04:49 Alkaline Phosphatase 122 U/L (35-105) H 04/14/22 04:49 C-Reactive Protein 119.1 mg/L (0.0-4.9) H 04/10/22 04:25 Total Protein 5.3 g/dL (6.6-8.7) L 04/14/22 04:49 Albumin 2.3 g/dL (3.5-5.2) L 04/14/22 04:49 Globulin 3.0 g/dL (1.3-4.6) 04/14/22 04:49 Lipase 27 U/L (13-60) 04/07/22 09:26 25-OH Vitamin D Total 10 ng/mL (30-100) L 04/10/22 13:55 Procalcitonin 43.29 ng/mL (0-0.5) H 04/10/22 04:25 Urine Color Dark yellow (Yellow) 04/07/22 12:10 Urine Appearance Hazy (CLEAR) A 04/07/22 12:10 Urine pH 6.5 (5-7) 04/07/22 12:10 Ur Specific [place] 1.005 (1.005-1.030) 04/07/22 12:10 Urine Protein 2+ (Negative) H 04/07/22 12:10 Urine Glucose (UA) Norm (Normal) 04/07/22 12:10 Urine Ketones 1+ (Negative) H 04/07/22 12:10 Urine Blood 3+ (Negative) H 04/07/22 12:10 Urine Nitrate Positive (Negative) H 04/07/22 12:10 Urine Bilirubin 1+ (Negative) H 04/07/22 12:10 Urine Urobilinogen 4+ mg/dL (Negative) H 04/07/22 12:10 Ur Leukocyte Esterase 1+ (Negative) H 04/07/22 12:10 Urine RBC 50-80 /hpf (0-2) H 04/07/22 12:10 Urine WBC 10-15 /hpf (0-5) H 04/07/22 12:10 Ur Squamous Epith Cells 0-4 /hpf (0-5) H 04/07/22 12:10 Amorphous Sediment Not Reportable 04/07/22 12:10 Urine Bacteria Trace /hpf (NONE) 04/07/22 12:10 Ethyl Alcohol 26 mg/dL (0-10) H 04/07/22 09:26 Blood Type A Positive 04/14/22 08:58 Rho(D) Type Positive 03/03/23 08:58 Antibody Screen Negative 04/14/22 08:58 Crossmatch See Detail 04/14/22 08:58 Vitals Last Vital Signs Temp 98.3 F 04/15/22 07:51 Pulse 89 04/15/22 07:51 Resp 18 04/15/22 08:47 BP 132/91 04/15/22 07:51 Pulse Ox 98 04/15/22 08:47 O2 Del Method 04/15/22 07:51 O2 Flow Rate 3 04/14/22 13:09 FiO2 98 04/13/22 11:37 Discharge Plan Discharge Patient Disposition: Home Condition: Stable Prescriptions: New multivitamin with folic acid [Thera] 400 mcg Tablet 1 tab PO DAILY 30 Days Qty: 30 0RF lactulose 20 gram/30 mL Solution 15 g PO Q12H 14 Days Qty: 630 0RF cefuroxime axetil 500 mg tablet 500 mg PO BID 9 Days Qty: 18 0RF potassium chloride 20 mEq tablet extended release 20 meq PO DAILY 30 Days Qty: 60 0RF folic acid 1 mg Tablet 1 mg PO DAILY 30 Days Qty: 30 0RF thiamine mononitrate (vit B1) [Vitamin B-1 (mononitrate)] 100 mg Tablet 100 mg PO DAILY 30 Days Qty: 30 0RF ergocalciferol (vitamin D2) [Vitamin D2] 1,250 mcg (50,000 unit) Capsule 50,000 unit PO Q7D 14 Days Qty: 2 0RF magnesium oxide 200 mg magnesium tablet 200 mg PO BID 30 Days Qty: 60 0RF Continued levetiracetam [Keppra] 500 mg tablet 500 mg PO BID Qty: 60 0RF Rx Instructions: NOT STARTED OF 04/07/22 albuterol sulfate 90 mcg/actuation Hfa Aerosol Inhaler 2 puff INHALATION Q6H PRN (Reason: Shortness Of Breath) omeprazole 40 mg capsule,delayed release(DR/EC) 40 mg PO BID 30 Days Qty: 60 0RF Changed sucralfate 1 gram tablet 1 g PO .UP TO BID 30 Days Qty: 60 0RF Held aspirin 325 mg Tablet 325 mg PO BID PRN (Reason: Chest Pain) Hold Instructions: see pcp before resuming Discharge Orders: Discharge Order (Routine); Ordered 04/15/22 Ordered By: Araceli Talavera Other Ambulatory Orders: Basic Metabolic Panel (Routine) Timeframe: 1 Week Facility: [facility] - Location: Lab - Main Lab Ordered By: Araceli Talavera Complete Blood Count w/Auto (Routine) Timeframe: 1 Week Location: Determined by Patient Ordered By: Araceli Talavera Referrals: State In Home Service Set Up [Other] (Call this number to follow up on your in home service referral.) Aditya Degroot, [Primary Care Provider] - 4-7 days Discharge Diet: GI Soft Discharge Activity: Resume usual activity and Use walker/crutches as instructed Patient Instructions: GI Discharge Instructions, Opioid Safety Activity Restrictions/Additional Instructions: Please follow up with your [facility] in [place] Dr. Hernandez. Call his office to schedule an appointment. See PCP within 4-7 days of discharge. Discharge Attestations Time Spent in Discharge Care*: greater than 30 min Status at Discharge: Cognitive status at discharge: cognitively intact, Behavioral status at discharge: cooperative, Quality Metrics Clinical Quality Measures [ No reported AMI, CVA or VTE this stay] Coding Level of Care Code 50701 Total time (in minutes) for Discharge: 45 Diagnoses Pyelonephritis N12 Sepsis A41.9 Alcohol intoxication F10.929 Colitis K52.9 Acidosis, lactic E87.20 Thrombocytopenia D69.6 Hypomagnesemia E83.42 Ileitis K52.9 Anemia D64.9 Hypophosphatemia E83.39 UTI (urinary tract infection) N39.0 Gram-negative bacteremia R78.81 Nicotine dependence F17.200
[2022-04-15] MEDS: potassium chloride ER 20 mEq Tablet PO ×2 (11:03→11:04)
[2022-04-15 12:51] VITALS: RESP 18; O2SAT 98
== END 2022-04-15 12:10 | disposition home or self-care (01) | DRG 872 ==
LOC: ER 12:05 → MEDSURG 14:34
PROVIDERS: Internal Medicine; Surgery; Admitting Provider Family Medicine; Emergency Provider Physician Assistant; PCP Family Medicine; Visit Provider Internal Medicine
PROC: 0DJ08ZZ Inspection of Upper Intestinal Tract, Via Natural or Artificial Opening Endoscopic (ICD-10-PCS; CPT 43235; principal; 2022-04-14 13:00)
DX: A41.9 Sepsis, unspecified organism (principal); E87.20 Acidosis, unspecified; N12 Tubulo-interstitial nephritis, not specified as acute or chronic; N39.0 Urinary tract infection, site not specified; K76.6 Portal hypertension; K52.9 Noninfective gastroenteritis and colitis, unspecified; F10.129 Alcohol abuse with intoxication, unspecified; Y90.1 Blood alcohol level of 20-39 mg/100 ml; K70.30 Alcoholic cirrhosis of liver without ascites; N28.9 Disorder of kidney and ureter, unspecified; K31.9 Disease of stomach and duodenum, unspecified; Z79.51 Long term (current) use of inhaled steroids; D53.9 Nutritional anemia, unspecified; K21.9 Gastro-esophageal reflux disease without esophagitis; Z87.440 Personal history of urinary (tract) infections; F17.200 Nicotine dependence, unspecified, uncomplicated; D69.59 Other secondary thrombocytopenia; I73.9 Peripheral vascular disease, unspecified; J44.9 Chronic obstructive pulmonary disease, unspecified; B96.20 Unspecified Escherichia coli [E. coli] as the cause of diseases classified elsewhere; I95.9 Hypotension, unspecified; E83.42 Hypomagnesemia; K29.70 Gastritis, unspecified, without bleeding; K31.89 Other diseases of stomach and duodenum; K29.80 Duodenitis without bleeding; K26.9 Duodenal ulcer, unspecified as acute or chronic, without hemorrhage or perforation
CPT/HCPCS: 36415; 36430; 36569; 36600; 43239; 71045; 74018; 74174; 74177; 80048; 80051; 80053; 80307; 81001; 82306; 82330; 82728; 82805; 83540; 83550; 83605; 83690; 83735; 84100; 84145; 85007; 85025; 86140; 86850; 86900; 86920; 87040; 87077; 87086; 87150; 87186; 87205; 88305; 94664; 96365; 96367; 96372; 96375; 97110; 97116; 97161; 99285; C9113; J0131; J0744; J2060; J2270; J2405; J2543; J2704; J2765; J3411; J3475; J3480; J3490; J7030; J7040; J7042; P9016; Q3014; Q9967

== ENCOUNTER 2022-05-11 12:13 | Emergency (ER) | payer MEDICAID, SELFPAY ==
[2022-05-11 12:17] VITALS: BP 138/105; PULSE 110; RESP 20; TEMP 36.5; O2SAT 98; BMI 27.6
[2022-05-11 12:24] VITALS: BP 120/75; PULSE 99; RESP 19; O2SAT 96
--- NOTE | 2022-05-11 12:43 | W.ED.NAVMDI ---
HPI - Nausea/Vomiting/Diarrhea General: Chief complaint: Nausea/Vomiting/Diarrhea Stated complaint: stomach pains Time Seen by Provider: 05/11/22 12:43 History of Present Illness: Ms. Portillo is a 51-year-old lady with complex past medical history presenting to the emergency department for abdominal pain with nausea and vomiting. Reports onset of symptoms approximately 1 week ago without known specific provoking event. Since that time has had pulsating right-sided abdominal pain upper and lower quadrant. Notes multiple episodes of vomiting initially however now just dry heaves. Intensity symptoms is moderate to severe. Course has worsened. She has had similar episodes in the past. No other specific changes in health, exacerbating, or alleviating factors identified. Onset (ago): day(s) Description of vomiting: watery Associated nausea: Yes Associated abdominal pain: Yes Location of pain: RUQ and RLQ Pain consistency: constant Severity: moderate Quality: other Exacerbating factors: none Relieving factors: none Associated symtoms: Reports nausea Review of Systems General: Reports: 10 or more systems reviewed and unremarkable except in HPI and below GI: Reports: nausea PFSH ED PFSH: Medical History Abdominal pain Abdominal pain Abdominal pain Acute dehydration Acute hypokalemia KATRIN (acute kidney injury) Alcohol dependence Alcohol dependence with withdrawal Alcohol use disorder Alcohol withdrawal Alcoholic gastritis Alcoholic hepatitis Alcoholic ketoacidosis Alcoholism Anemia Anxiety Carpal tunnel syndrome Chronic alcoholic hepatitis Chronic back pain Chronic pancreatitis Cirrhosis Enteritis Fracture of proximal phalanx of right thumb Gastritis GERD (gastroesophageal reflux disease) H. pylori infection Hepatitis A Hypokalemia Hypokalemia Hypomagnesemia Intractable nausea and vomiting Intractable nausea and vomiting Macrocytic anemia Nausea & vomiting Nausea and vomiting Pancytopenia Pancytopenia Sciatica Small bowel obstruction, partial Thrombocytopenia Tobacco dependency Urinary tract infection Surgical History H/O rotator cuff surgery H/O: hysterectomy History of appendectomy History of cholecystectomy Family History Denies family history of Diabetes CAD (coronary artery disease) Dementia Social History Smoking and tobacco status: current every day smoker Alcohol intake: current Alcohol intake frequency: 3 or more drinks per day Alcohol type: hard liquor Desire information about alcohol rehabilitation?: No Current occupation: On disability Physical Exam Const: COMMON NORMALS: alert GENERAL APPEARANCE: cooperative and well developed HENMT: COMMON NORMALS: normocephalic and atraumatic HEAD & SCALP: normocephalic and atraumatic Eye: COMMON NORMALS: conjunctivae normal CONJUNCTIVA: Yes conjunctivae normal SCLERA: sclerae normal Neck/C-Spine: COMMON NORMALS: supple GENERAL: Yes trachea midline Resp: COMMON NORMALS: clear to auscultation bilaterally EFFORT & INSPECTION: Yes able to speak in complete sentences AUSCULTATION: clear to auscultation bilaterally Cardio: COMMON NORMALS: regular rhythm RATE: tachycardic RHYTHM: regular rhythm GI: COMMON NORMALS: Soft to palpation PALPATION: Yes Soft to palpation, Yes Tenderness to palpation present (GI), No Guarding due to palpation present (GI) and No Rigid due to palpation Extremity: GENERAL: Yes normal exam except as noted and No edema Neuro: COMMON NORMALS: moves all extremities SENSORIUM/ORIENTATION: Yes alert and No Orientation impaired Psych: COMMON NORMALS: mental status grossly normal and Normal thought process present THOUGHT PROCESS: Normal thought process present Course Vital Signs: Vital signs: Vital Signs Temperature 97.7 F 05/11/22 12:17 Pulse Rate 102 H 05/11/22 17:46 Respiratory Rate 19 H 05/11/22 17:46 Blood Pressure 100/66 05/11/22 17:46 Pulse Oximetry 99 05/11/22 17:46 Oxygen Delivery Me thod 05/11/22 14:47 MDM - Nausea/Vomiting/Diarrhea Medical Decision Making 51-year-old lady presenting with abdominal symptoms with nausea, vomiting. Exam as above. There is abdominal tenderness without evidence of acute surgical abdomen and the patient is nontoxic though somewhat ill-appearing. Labs with no leukocytosis, hemoconcentration compared to prior. Metabolic panel with continued mild evidence of dehydration. Lipase is mildly elevated. Urinalysis with squamous epithelial contamination. CT demonstrates no acute pathology to explain symptoms. Fatty liver again noted. Patient treated with IV fluids, analgesia, antiemetic. Upon reassessment patient's symptoms are significantly improved and she is able to tolerate p.o. intake. Most likely etiology of patient's symptoms is multifactorial including dehydration and nonspecific GI symptoms. The results of ED evaluation were discussed with the patient including prescriptions and/or symptomatic cares (if applicable) including appropriate and responsible use, followup plan, and return precautions. The patient verbalized understanding and felt safe for discharge. Medical Records I reviewed the patient's medical records. Lab Data I reviewed the patient's lab results. 05/11/22 13:02 05/11/22 13:02 Radiology Impressions Abdomen/Pelvis CT 05/11/22 14:02 IMPRESSION: 1. Prior hysterectomy cholecystectomy. 2. Hepatomegaly with diffuse fatty infiltration liver. 3. Normal renal parenchymal enhancement. No hydronephrosis. 4. Prior sigmoid anastomosis. No evidence of small or large bowel obstruction. 5. No other remarkable findings. Laboratory Results WBC 4.0 10^3/uL (4.0-10.0) 05/11/22 13:02 RBC 3.46 10^6/uL (4.1-5.3) L 05/11/22 13:02 Hgb 12.4 g/dL (11.5-15.3) 05/11/22 13:02 Hct 36.7 % (37.0-47.0) L 05/11/22 13:02 MCV 106.1 fl (81-99) H 05/11/22 13:02 MCH 35.8 pg (28.0-34.0) H 05/11/22 13:02 MCHC 33.8 g/dL (30.0-36.0) 05/11/22 13:02 RDW 14.6 % (12.1-15.1) 05/11/22 13:02 Plt Count 121 10^3/cmm (130-400) L 05/11/22 13:02 MPV 10.4 fL (7.4-10.4) 05/11/22 13:02 Neut % (Auto) 45.3 % 05/11/22 13:02 Lymph % (Auto) 42.9 % 05/11/22 13:02 Josephine % (Auto) 8.2 % 05/11/22 13:02 Eos % (Auto) 2.7 % 05/11/22 13:02 Baso % (Auto) 0.7 % 05/11/22 13:02 Neut # (Auto) 1.81 10^3/uL (1.8-7.7) 05/11/22 13:02 Lymph # (Auto) 1.7 10^3/uL (0.8-4.8) 05/11/22 13:02 Josephine # (Auto) 0.3 10^3/uL (0.2-0.9) 05/11/22 13:02 Eos # (Auto) 0.1 10^3/uL (0.0-0.8) 05/11/22 13:02 Baso # (Auto) 0.0 10^3/uL (0.0-0.1) 05/11/22 13:02 Nucleated RBC % (auto) 0 % 05/11/22 13:02 Nucleated RBCs # 0.0 /100WBC 05/11/22 13:02 Sodium 134 mmol/L (136-145) L 05/11/22 13:02 Potassium 3.6 mmol/L (3.5-5.1) 05/11/22 13:02 Chloride 97 mmol/L (98-107) L 05/11/22 13:02 Carbon Dioxide 21 mmol/L (22-29) L 05/11/22 13:02 Anion Gap 19.6 (5-19) H 05/11/22 13:02 BUN 8 mg/dL (6-20) 05/11/22 13:02 Creatinine 0.6 mg/dL (0.5-0.9) 05/11/22 13:02 GFR Calculation 104.6 mL/min (90-130) 05/11/22 13:02 Glucose 88 mg/dL (65-115) 05/11/22 13:02 Calculated Osmolality 276 mOsm/kg (285-295) L 05/11/22 13:02 Calcium 9.5 mg/dL (8.5-10.5) 05/11/22 13:02 Total Bilirubin 0.8 mg/dL (0.15-1.2) 05/11/22 13:02 AST 72 U/L (0-32) H 05/11/22 13:02 ALT 26 U/L (0-33) 05/11/22 13:02 Alkaline Phosphatase 122 U/L (35-105) H 05/11/22 13:02 Total Protein 9.3 g/dL (6.6-8.7) H 05/11/22 13:02 Albumin 4.2 g/dL (3.5-5.2) 05/11/22 13:02 Globulin 5.1 g/dL (1.3-4.6) H 05/11/22 13:02 Lipase 79 U/L (13-60) H 05/11/22 13:02 Urine Color Yellow (Yellow) 05/11/22 13:15 Urine Appearance Hazy (CLEAR) A 05/11/22 13:15 Urine pH 5 (5-7) 05/11/22 13:15 Ur Specific [place] 1.025 (1.005-1.030) 05/11/22 13:15 Urine Protein 1+ (Negative) H 05/11/22 13:15 Urine Glucose (UA) Norm (Normal) 05/11/22 13:15 Urine Ketones 1+ (Negative) H 05/11/22 13:15 Urine Blood Trace (Negative) H 05/11/22 13:15 Urine Nitrate Positive (Negative) H 05/11/22 13:15 Urine Bilirubin 1+ (Negative) H 05/11/22 13:15 Urine Urobilinogen 1 mg/dL (Negative) H 05/11/22 13:15 Ur Leukocyte Esterase 2+ (Negative) H 05/11/22 13:15 Urine RBC 0-4 /hpf (0-2) H 05/11/22 13:15 Urine WBC 10-15 /hpf (0-5) H 05/11/22 13:15 Ur Squamous Epith Cells Too numerous to cnt /hpf (0-5) H 05/11/22 13:15 Amorphous Sediment Not Reportable 05/11/22 13:15 Urine Bacteria 2+ /hpf (NONE) H 05/11/22 13:15 Urine Mucus 1+ /hpf 05/11/22 13:15 Discharge Plan Discharge Patient Disposition: Home Clinical Impression: Abdominal pain, Dehydration, Nausea & vomiting, Elevated lipase, Elevated AST (SGOT) Condition: Stable Prescriptions: New oxycodone 5 mg tablet 5 mg PO Q4H PRN (Reason: pain) Qty: 10 0RF Reglan 10 mg tablet 10 mg PO Q6H PRN (Reason: nausea and vomiting) Qty: 20 0RF No Action aspirin 325 mg Tablet 325 mg PO BID PRN (Reason: Chest Pain) Hold Instructions: see pcp before resuming albuterol sulfate 90 mcg/actuation Hfa Aerosol Inhaler 2 puff INHALATION Q6H PRN (Reason: Shortness Of Breath) omeprazole 40 mg capsule,delayed release(DR/EC) 40 mg PO BID 30 Days Qty: 60 0RF Discharge Orders: Discharge ED (Routine); Ordered 05/11/22 Ordered By: Estuardo Talamantes Referrals: Aditya Degroot, [Primary Care Provider] - Discharge Diet: Advance as tolerated and Clear Liquid Discharge Activity: Increase activity as tolerated Patient Instructions: Acute Nausea and Vomiting (ED), Abdominal Pain (ED), Opioid Safety Activity Restrictions/Additional Instructions: Thank you for visiting the emergency department. You were seen antibiotic for nausea and vomiting associated with abdominal pain. The exact cause your symptoms is unclear. You were found to have dehydration. Additionally your lipase is mildly elevated again which can be due to pancreatitis though you did not meet the technical diagnosis of this. Please ensure that you are staying hydrated. I will prescribe antiemetic medication and pain medication. Use this cautiously. Please follow-up with your primary care provider. Return to the emergency department for uncontrolled symptoms or anything else that you are concerned about and feel needs emergency department evaluation. Coding Level of Care Code ED Debt Recovery Officer for Shila Mcallister
[2022-05-11] MEDS: ondansetron 2 mg/ML SDV 2 mL 4 MG IVP ×2 (13:12→15:35)
[2022-05-11] MEDS: morphine 4 mg/mL SDV 1 mL IVP ×2 (13:12→15:35)
[2022-05-11] MEDS: sodium chloride 0.9% 1,000 ML 999 ML IV (13:12)
[2022-05-11 13:29] LABS: Basophils % 0.7 %; Eosinophils # 0.1 10^3/uL (0.0-0.8); Eosinophils % 2.7 %; Hematocrit 36.7 % (37.0-47.0); Hemoglobin 12.4 g/dL (11.5-15.3); Lymphocytes # 1.7 10^3/uL (0.8-4.8); Lymphocytes % 42.9 %; Mean Corpuscular HGB Conc 33.8 g/dL (30.0-36.0); Mean Corpuscular Hemoglobin 35.8 pg (28.0-34.0); Mean Corpuscular Volume 106.1 fl (81-99); Mean Platelet Volume 10.4 fL (7.4-10.4); Monocytes # 0.3 10^3/uL (0.2-0.9); Monocytes % 8.2 %; Neutrophils # 1.81 10^3/uL (1.8-7.7); Neutrophils % 45.3 %; Nucleated Red Blood Cells % 0 %; Platelet Count 121 10^3/cmm (130-400); Red Blood Count 3.46 10^6/uL (4.1-5.3); Red Cell Distribution Width 14.6 % (12.1-15.1)
[2022-05-11 13:41] LABS: Add Urine Microscopic? YES; Bilirubin Urine 1+ (Negative); Blood Urine Trace (Negative); Glucose Urine UA Norm (Normal); Ketones Urine 1+ (Negative); Leukocyte Esterase Urine 2+ (Negative); Nitrate Urine Positive (Negative); Protein Urine 1+ (Negative); Specific Gravity, Urine 1.025 (1.005-1.030); Urine Appearance Hazy (CLEAR); Urine Color Yellow (Yellow); Urobilinogen Urine 1 mg/dL (Negative); pH Urine 5 (5-7)
[2022-05-11 13:43] LABS: RBC Urine 0-4 /hpf (0-2)
[2022-05-11 13:44] LABS: Add Urine Culture? No; Bacteria Urine 2+ /hpf; Mucus Urine 1+ /hpf; Squamous Epithelial Cell Urine TOO NUMEROUS TO CNT /hpf (0-5)
[2022-05-11 13:56] LABS: Alanine Aminotransferase 26 U/L (0-33); Albumin Level 4.2 g/dL (3.5-5.2); Alkaline Phosphatase 122 U/L (35-105); Anion Gap 19.6 (5-19); Aspartate Amino Transferase 72 U/L (0-32); Blood Urea Nitrogen 8 mg/dL (6-20); Calcium 9.5 mg/dL (8.5-10.5); Carbon Dioxide 21 mmol/L (22-29); Chloride 97 mmol/L (98-107); Globulin 5.1 g/dL (1.3-4.6); Glomerular Filtration Rate 104.6 mL/min (90-130); Glucose 88 mg/dL (65-115); Lipase 79 U/L (13-60); Osmolality Calculated 276 mOsm/kg (285-295); Potassium 3.6 mmol/L (3.5-5.1); Sodium 134 mmol/L (136-145); Total Bilirubin 0.8 mg/dL (0.15-1.2); Total Protein 9.3 g/dL (6.6-8.7)
--- NOTE | 2022-05-11 14:02 | CT_ITS ---
WS: [id number] CT ABDOMEN PELVIS TECHNIQUE: Contrast-enhanced CT of the abdomen and pelvis with coronal and sagittal reformatted image s. CLINICAL INFORMATION: right sided abd pain COMPARISON: CTA April 13, 2022 DLP: 624.[address] scans at [facility] use at least one of these dose optimization techniques: automated e xposure control; mA and/or kV adjustment per patient size (includes targeted exams where dose is matc hed to clinical indication); or iterative reconstruction. FINDINGS: Hepatomegaly. Diffuse of the infiltration liver. Cholecystectomy clips. Normal portal vein and spleni c vein. Normal spleen. Normal GE junction. Adrenal glands are normal. Normal pancreatic parenchymal e nhancement. Prior cholecystectomy. Physiologic dilatation common bile duct. Adrenal glands are normal . Normal renal parenchymal enhancement. No hydronephrosis. Pelvic phleboliths. Normal caliber abdomin al aorta. Bladder is decompressed. Prior sigmoid anastomosis. Normal colon. Prior appendectomy and hy sterectomy. CT/CT abdomen pelvis w con* [id number] IMPRESSION: 1. Prior hysterectomy cholecystectomy. 2. Hepatomegaly with diffuse fatty infiltration liver. 3. Normal renal parenchymal enhancement. No hydronephrosis. 4. Prior sigmoid anastomosis. No evidence of small or large bowel obstruction. 5. No other remarkable findings.
[2022-05-11 14:47] VITALS: BP 100/66; PULSE 102; RESP 19; O2SAT 99
[2022-05-11] MEDS: iohexol 350 mg/mL 500 mL Btl (per mL) IV (15:23)
[2022-05-11] MEDS: metoclopramide 5 mg/mL SDV 2 mL 10 MG IVP (16:55)
[2022-05-11 17:46] VITALS: BP 100/66; PULSE 102; RESP 19; O2SAT 99
== END 2022-05-11 17:49 | disposition home or self-care (01) ==
PROVIDERS: Emergency Provider Emergency Medicine; PCP Family Medicine
DX: R10.9 Unspecified abdominal pain (principal); R11.2 Nausea with vomiting, unspecified; E86.0 Dehydration; R79.89 Other specified abnormal findings of blood chemistry; F17.210 Nicotine dependence, cigarettes, uncomplicated; Z87.440 Personal history of urinary (tract) infections
CPT/HCPCS: 74177; 80053; 81001; 83690; 85025; 96361; 96374; 96375; 96376; 99285; J2270; J2405; J2765; J7030; Q9967

== ENCOUNTER 2022-06-11 15:34 | Emergency (ER) | payer MEDICAID, SELFPAY ==
[2022-06-11] VITALS (36 sets, daily range): BP systolic 146–157; BP diastolic 98; PULSE 99–125; RESP 15–28; TEMP 36.9; O2SAT 97–100
[2022-06-11 16:02] LABS: Eosinophils % 0.7 %; Hematocrit 32.2 % (37.0-47.0); Hemoglobin 10.8 g/dL (11.5-15.3); Lymphocytes # 0.8 10^3/uL (0.8-4.8); Mean Corpuscular HGB Conc 33.5 g/dL (30.0-36.0); Mean Corpuscular Hemoglobin 36.6 pg (28.0-34.0); Mean Corpuscular Volume 109.2 fl (81-99); Mean Platelet Volume 11.2 fL (7.4-10.4); Monocytes # 0.2 10^3/uL (0.2-0.9); Monocytes % 5.5 %; Neutrophils # 3.04 10^3/uL (1.8-7.7); Neutrophils % 72.3 %; Nucleated Red Blood Cells % 0 %; Platelet Count 50 10^3/cmm (130-400); Red Blood Count 2.95 10^6/uL (4.1-5.3); Red Cell Distribution Width 17.9 % (12.1-15.1); White Blood Count 4.2 10^3/uL (4.0-10.0)
--- NOTE | 2022-06-11 16:12 | CTR_ITS ---
PROCEDURE INFORMATION: Exam: CT Abdomen And Pelvis With Contrast Exam date and time: 06/11/2022 4:42 PM Age: 51 years old Clinical indication: Nausea and vomiting; Abdominal pain; Epigastric; Prior surgery; Surgery type: Hyst; Appy; Darlene; Patient HX: PT reports pain with n/v after ETOH with HX of pancreatitis. ; Additional info: Nausea/vomiting abdominal pain TECHNIQUE: Imaging protocol: Computed tomography of the abdomen and pelvis with contrast. Radiation optimization: All CT scans at this facility use at least one of these dose optimization techniques: automated exposure control; mA and/or kV adjustment per patient size (includes targeted exams where dose is matched to clinical indication); or iterative reconstruction. Contrast material: OMNI 350; Contrast volume: 80 ml; Contrast route: INTRAVENOUS (IV); REPORTING DATA: Count of CT and Cardiac NM exams in prior 12 months: This patient has received 12 known CTs and 0 known cardiac nuclear medicine studies in the 12 months prior to the current study. COMPARISON: 1. CT abdomen pelvis w con* [id number] 05/11/2022 3:[address] abdomen pelvis w con* [id number] 04/12/2022 9:[address] abdomen pelvis w con* [id number] 04/07/2022 10:[address] abdomen pelvis w con* [id number] 02/26/2022 1:12 PM RADIATION DOSE METRICS: Total DLP (mGy-cm): 770.56 FINDINGS: Lungs: Lung bases are clear. Liver: Liver shows diffusely decreased density in keeping with fatty change. There is moderate enlargement of the liver. The liver is 22 cm in height. Gallbladder and bile ducts: There has been a cholecystectomy. Common bile duct measures 10 mm. Pancreas: The pancreas is normal. Spleen: The spleen is normal. Adrenal glands: The adrenal glands are normal. Kidneys and ureters: The kidneys are normal. There is no evidence of hydronephrosis. There is no evidence of renal or ureteral calcifications. Stomach and bowel: There are postsurgical changes of the sigmoid colon. There is no evidence of intestinal obstruction. There is mild thickening of the terminal ileum and of the cecum which is nonspecific but could represent some infectious or inflammatory disease. Appendix: Not Identified Intraperitoneal space: There is no evidence of free intraperitoneal fluid. There is minimal haziness in the perihepatic and omental fat which could represent some mild inflammatory disease. Vasculature: The aorta demonstrates mild atherosclerotic calcification. The aorta is normal. There is no evidence of an abdominal aortic aneurysm. Lymph nodes: There is no evidence of lymphadenopathy. There are small periaortic lymph nodes not changed from previous. There is no evidence of lymphadenopathy. Urinary bladder: Unremarkable as visualized. Reproductive: There has been a hysterectomy. Bones/joints: There is mild lumbar scoliosis concave the left. Soft tissues: Unremarkable. CT/CT abdomen pelvis w con* [id number] IMPRESSION: 1. Findings of mild distal ileitis 2. Hepatomegaly and fatty change 3. No specific finding for acute pancreatitis.
[2022-06-11 16:17] LABS: Alanine Aminotransferase 53 U/L (0-33); Albumin Level 4.3 g/dL (3.5-5.2); Alkaline Phosphatase 356 U/L (35-105); Anion Gap 26.2 (5-19); Aspartate Amino Transferase 215 U/L (0-32); Blood Urea Nitrogen 15 mg/dL (6-20); Calcium 10.1 mg/dL (8.5-10.5); Carbon Dioxide 15 mmol/L (22-29); Chloride 94 mmol/L (98-107); Globulin 5.3 g/dL (1.3-4.6); Glucose 71 mg/dL (65-115); Lipase 65 U/L (13-60); Osmolality Calculated 271 mOsm/kg (285-295); Potassium 4.2 mmol/L (3.5-5.1); Sodium 131 mmol/L (136-145); Total Bilirubin 3.9 mg/dL (0.15-1.2); Total Protein 9.6 g/dL (6.6-8.7)
--- NOTE | 2022-06-11 16:18 | ED_ITS ---
HPI - Abdominal Pain General: Chief Complaint: Abdominal Pain Stated Complaint: abd pains/nauseas Time Seen by Provider: 06/11/22 15:47 History of Present Illness: 51-year-old female presents emergency department chief complaint of having persistent nausea vomiting epigastric abdominal pain has been going ongoing last day and a half patient reports being an alcoholic reports drinking substantial alcohol up until yesterday. Patient presents with her family apparently patient has a known history of pancreatitis as well as gastritis she reports that she has not been mistaking her stomach medications prescribed patient does not endorse any recent fevers or chills reports of episodes of nonbloody emesis and some diarrhea with her epigastric abdominal pain. Patient does not report having any other associated symptoms. Associated Symptoms: Reports nausea and vomiting; Denies chills and fever(s) Review of Systems General: Reports: 10 or more systems reviewed and unremarkable except in HPI and below Const: Reports: change in appetite, fatigue and malaise; Denies: fever(s) or chills Eyes: Denies: change in vision or blurry vision Card: Denies: chest pain or palpitations Resp: Denies: dyspnea or productive cough GI: Reports: abdominal pain, nausea and vomiting : Denies: flank pain Musc: Denies: extremity pain or extremity swelling Skin/Breast: Denies: rash or pruritus Neuro: Denies: headache(s) Psych: Denies: anxiety or depression Eric/Lymph: Denies: easy bleeding All/Imm: Denies: urticaria, throat swelling or facial swelling PFSH ED PFSH: Medical History Abdominal pain Abdominal pain Abdominal pain Acute dehydration Acute hypokalemia KATRIN (acute kidney injury) Alcohol dependence Alcohol dependence with withdrawal Alcohol use disorder Alcohol withdrawal Alcoholic gastritis Alcoholic hepatitis Alcoholic ketoacidosis Alcoholism Anemia Anxiety Carpal tunnel syndrome Chronic alcoholic hepatitis Chronic back pain Chronic pancreatitis Cirrhosis Enteritis Fracture of proximal phalanx of right thumb Gastritis GERD (gastroesophageal reflux disease) H. pylori infection Hepatitis A Hypokalemia Hypokalemia Hypomagnesemia Intractable nausea and vomiting Intractable nausea and vomiting Macrocytic anemia Nausea & vomiting Nausea and vomiting Pancytopenia Pancytopenia Sciatica Small bowel obstruction, partial Thrombocytopenia Tobacco dependency Urinary tract infection Surgical History H/O rotator cuff surgery H/O: hysterectomy History of appendectomy History of cholecystectomy Family History Denies family history of Diabetes CAD (coronary artery disease) Dementia Social History Smoking and tobacco status: current every day smoker Alcohol intake: current Alcohol intake frequency: 3 or more drinks per day Alcohol type: hard liquor Desire information about alcohol rehabilitation?: No Substance/Drug Use: former Current occupation: On disability Physical Exam Const: COMMON NORMALS: no acute distress, patient oriented x3 and healthy appearing HENMT: COMMON NORMALS: normocephalic and atraumatic HEAD & SCALP: normocephalic and atraumatic Eye: COMMON NORMALS: Equal, round and reactive pupils present and EOMs intact bilaterally PUPIL: Yes Equal, round and reactive pupils present Neck/C-Spine: COMMON NORMALS: full ROM, supple and no JVD Lymph: LYMPHATIC: no lymphadenopathy noted Chest: COMMONS NORMALS: normal inspection of the chest and normal palpation of entire chest wall Resp: COMMON NORMALS: normal respiratory effort, No retractions and clear to auscultation bilaterally EFFORT & INSPECTION: Yes able to speak in complete sentences and Yes symmetric chest movement AUSCULTATION: clear to auscultation bilaterally Cardio: COMMON NORMALS: no JVD and regular rhythm RATE: tachycardic RHYTHM: regular rhythm GI: OTHER: Moderate epigastric abdominal pain noted no obvious guarding or rebound noted no ascites present : COMMON NORMALS: Yes no CVA tenderness BLADDER/KIDNEY EXAM: Yes no CVA tenderness Back/Pelvis: COMMON NORMALS: no CVA tenderness Extremity: COMMON NORMALS: normal to inspection and full ROM Neuro: COMMON NORMALS: patient oriented x3, CN's II-XII intact bilaterally, moves all extremities and no focal motor deficits Psych: COMMON NORMALS: mental status grossly normal, Normal thought process present, cooperative and normal affect THOUGHT PROCESS: Normal thought process present Skin: COMMON NORMALS: no rashes or lesions noted GENERAL SKIN EXAM: no rashes or lesions noted Course Vital Signs: Vital signs: Vital Signs Temperature 98.4 F 06/11/22 15:37 Pulse Rate 100 06/11/22 16:09 Respiratory Rate 18 06/11/22 16:09 Blood Pressure 157/98 06/11/22 18:50 Pulse Oximetry 99 06/11/22 18:50 Oxygen Delivery Me thod Room Air 06/11/22 16:09 MDM - Abdominal Pain Medical Decision Making Due to the patient's symptoms and condition lab work imaging will be obtained we will continue to follow. Medication will provided for the patient's stomach. Patient's lab work and imaging came back reassuring discussed ileitis and gastritis no acute pancreatitis. Will be starting the patient on additional medication for her so symptoms advised for her to further follow-up with [facility] for further assessment management patient vies to return the interim if any of her symptoms persist or worse. Lab Data 06/11/22 15:50 06/11/22 15:50 Labs/Radiology: Radiology Impressions Abdomen/Pelvis CT 06/11/22 16:12 IMPRESSION: 1. Findings of mild distal ileitis 2. Hepatomegaly and fatty change 3. No specific finding for acute pancreatitis. Laboratory Results WBC 4.2 10^3/uL (4.0-10.0) 06/11/22 15:50 RBC 2.95 10^6/uL (4.1-5.3) L 06/11/22 15:50 Hgb 10.8 g/dL (11.5-15.3) L 06/11/22 15:50 Hct 32.2 % (37.0-47.0) L 06/11/22 15:50 MCV 109.2 fl (81-99) H 06/11/22 15:50 MCH 36.6 pg (28.0-34.0) H 06/11/22 15:50 MCHC 33.5 g/dL (30.0-36.0) 06/11/22 15:50 RDW 17.9 % (12.1-15.1) H 06/11/22 15:50 Plt Count 50 10^3/cmm (130-400) L 06/11/22 15:50 MPV 11.2 fL (7.4-10.4) H 06/11/22 15:50 Neut % (Auto) 72.3 % 06/11/22 15:50 Lymph % (Auto) 20.0 % 06/11/22 15:50 Hoke % (Auto) 5.5 % 06/11/22 15:50 Eos % (Auto) 0.7 % 06/11/22 15:50 Baso % (Auto) 1.0 % 06/11/22 15:50 Neut # (Auto) 3.04 10^3/uL (1.8-7.7) 06/11/22 15:50 Lymph # (Auto) 0.8 10^3/uL (0.8-4.8) 06/11/22 15:50 Hoke # (Auto) 0.2 10^3/uL (0.2-0.9) 06/11/22 15:50 Eos # (Auto) 0.0 10^3/uL (0.0-0.8) 06/11/22 15:50 Baso # (Auto) 0.0 10^3/uL (0.0-0.1) 06/11/22 15:50 Nucleated RBC % (auto) 0 % 06/11/22 15:50 Nucleated RBCs # 0.0 /100WBC 06/11/22 15:50 Sodium 131 mmol/L (136-145) L 06/11/22 15:50 Potassium 4.2 mmol/L (3.5-5.1) 06/11/22 15:50 Chloride 94 mmol/L (98-107) L 06/11/22 15:50 Carbon Dioxide 15 mmol/L (22-29) L 06/11/22 15:50 Anion Gap 26.2 (5-19) H 06/11/22 15:50 BUN 15 mg/dL (6-20) 06/11/22 15:50 Creatinine 0.8 mg/dL (0.5-0.9) 06/11/22 15:50 GFR Calculation 75.0 mL/min (90-130) L 06/11/22 15:50 Glucose 71 mg/dL (65-115) 06/11/22 15:50 Calculated Osmolality 271 mOsm/kg (285-295) L 06/11/22 15:50 Lactate 1.6 mmol/L (0.5-2.2) 06/11/22 16:00 Calcium 10.1 mg/dL (8.5-10.5) 06/11/22 15:50 Total Bilirubin 3.9 mg/dL (0.15-1.2) H 06/11/22 15:50 AST 215 U/L (0-32) H 06/11/22 15:50 ALT 53 U/L (0-33) H 06/11/22 15:50 Alkaline Phosphatase 356 U/L (35-105) H 06/11/22 15:50 C-Reactive Protein 16.5 mg/L (0.0-4.9) H 06/11/22 15:50 Total Protein 9.6 g/dL (6.6-8.7) H 06/11/22 15:50 Albumin 4.3 g/dL (3.5-5.2) 06/11/22 15:50 Globulin 5.3 g/dL (1.3-4.6) H 06/11/22 15:50 Lipase 65 U/L (13-60) H 06/11/22 15:50 Urine Color Maribel (Yellow) 06/11/22 16:39 Urine Appearance Clear (CLEAR) 06/11/22 16:39 Urine pH 5 (5-7) 06/11/22 16:39 Ur Specific Burns 1.025 (1.005-1.030) 06/11/22 16:39 Urine Protein 1+ (Negative) H 06/11/22 16:39 Urine Glucose (UA) Norm (Normal) 06/11/22 16:39 Urine Ketones 1+ (Negative) H 06/11/22 16:39 Urine Blood Neg (Negative) 06/11/22 16:39 Urine Nitrate Negative (Negative) 06/11/22 16:39 Urine Bilirubin 2+ (Negative) H 06/11/22 16:39 Urine Urobilinogen 12 mg/dL (Negative) H 06/11/22 16:39 Ur Leukocyte Esterase Negative (Negative) 06/11/22 16:39 Urine RBC None /hpf (0-2) 06/11/22 16:39 Urine WBC 0-4 /hpf (0-5) H 06/11/22 16:39 Ur Squamous Epith Cells 10-15 /hpf (0-5) H 06/11/22 16:39 Amorphous Sediment Not Reportable 06/11/22 16:39 Urine Bacteria 1+ /hpf (NONE) H 06/11/22 16:39 Urine Opiates Screen Positive ng/mL (Negative) H 06/11/22 16:39 Ur Barbiturates Screen Negative ng/mL (Negative) 06/11/22 16:39 Ur Phencyclidine Scrn Negative ng/mL (Negative) 06/11/22 16:39 Ur Amphetamines Screen Negative ng/mL (Negative) 06/11/22 16:39 U Benzodiazepines Scrn Negative ng/mL (Negative) 06/11/22 16:39 Urine Cocaine Screen Negative ng/mL (Negative) 06/11/22 16:39 U Marijuana (THC) Screen Positive ng/mL (Negative) H 06/11/22 16:39 Ethyl Alcohol < 10 mg/dL (0-10) 06/11/22 15:50 Discharge Plan Discharge Patient Disposition: Home Clinical Impression: Alcohol dependence syndrome, Gastritis and duodenitis, Ileitis, Nausea & vomiting Condition: Stable Prescriptions: New Protonix 40 mg tablet,delayed release (DR/EC) 40 mg PO BID 10 Days Qty: 20 0RF Carafate 1 gram tablet 1 g PO Q6H 28 Days Qty: 112 0RF ondansetron 4 mg tablet,disintegrating 4 mg PO Q6H PRN (Reason: nausea and vomiting) Qty: 20 0RF No Action aspirin 325 mg Tablet 325 mg PO BID PRN (Reason: Chest Pain) Hold Instructions: see pcp before resuming albuterol sulfate 90 mcg/actuation Hfa Aerosol Inhaler 2 puff INHALATION Q6H PRN (Reason: Shortness Of Breath) omeprazole 40 mg capsule,delayed release(DR/EC) 40 mg PO BID 30 Days Qty: 60 0RF oxycodone 5 mg tablet 5 mg PO Q4H PRN (Reason: pain) Qty: 10 0RF Reglan 10 mg tablet 10 mg PO Q6H PRN (Reason: nausea and vomiting) Qty: 20 0RF Discharge Orders: Discharge ED (Routine); Ordered 06/11/22 Ordered By: Nathaniel Carirllo Referrals: Aditya Degroot, [Primary Care Provider] - 4-7 days Discharge Diet: Advance as tolerated Discharge Activity: Increase activity as tolerated Patient Instructions: Alcohol Abuse, Gastritis (ED), Diet for Stomach Ulcers and Gastritis (ED), Alcohol Dependence (ED), Duodenitis (ED), Vomiting - Adult Activity Restrictions/Additional Instructions: Is advised you to further follow-up your primary care doctor in 2 to 3 days for additional resources for your alcohol abuse, take medication as as prescribed and please return the interim if any of your symptoms persist or worse, today you have been not found to have any acute pancreatitis just gastritis and ileitis. In which it appears that the marijuana you using may be contributing to your current vomiting. Coding Level of Care Code ED Prosthetic Makeup Designer for Shila Mcallister
[2022-06-11] MEDS: ondansetron 2 mg/ML SDV 2 mL 4 MG IVP ×2 (16:29→18:51)
[2022-06-11] MEDS: sucralfate 1 gm/10 mL Oral Liq UDC PO (16:29)
[2022-06-11] MEDS: sodium chloride 0.9% 1,000 ML 999 ML IV (16:29)
[2022-06-11] MEDS: pantoprazole 40 mg SDV 80 MG IVP (16:30)
[2022-06-11] MEDS: iohexol 350 mg/mL 500 mL Btl (per mL) IV (16:32)
[2022-06-11] MEDS: pantoprazole 40 MG in sodium chloride 0.9% (plus) 100 ML 20 MG IV (16:39)
[2022-06-11 16:52] LABS: Lactate (Lactic Acid level) 1.6 mmol/L (0.5-2.2)
[2022-06-11 16:53] LABS: Blood Urine Neg (Negative); Glucose Urine UA Norm (Normal); Ketones Urine 1+ (Negative); Nitrate Urine Negative (Negative); Protein Urine 1+ (Negative); Specific Gravity, Urine 1.025 (1.005-1.030); Urine Appearance Clear (CLEAR); Urine Color Amber (Yellow); pH Urine 5 (5-7)
[2022-06-11 16:54] LABS: Add Urine Culture? No; Add Urine Microscopic? YES; Amphetamines Screen Urine Negative (Negative); Bacteria Urine 1+ /hpf; Barbiturates Screen Urine Negative (Negative); Benzodiazepines Screen Urine Negative (Negative); Bilirubin Urine 2+ (Negative); Cocaine Screen Urine Negative (Negative); Leukocyte Esterase Urine Negative (Negative); Opiate Screen Urine Positive (Negative); PCP Screen Urine Negative (Negative); THC Screen Urine Positive (Negative); Urobilinogen Urine 12 mg/dL (Negative); WBC Urine 0-4 /hpf (0-5)
[2022-06-11 17:49] LABS: C Reactive Protein 16.5 mg/L (0.0-4.9)
[2022-06-11 17:53] LABS: Alcohol Level < 10 mg/dL (0-10)
== END 2022-06-11 19:27 | disposition home or self-care (01) ==
PROVIDERS: Physician Assistant; Emergency Provider Emergency Medicine; PCP Family Medicine
DX: K29.70 Gastritis, unspecified, without bleeding (principal); K29.80 Duodenitis without bleeding; K52.9 Noninfective gastroenteritis and colitis, unspecified; F10.20 Alcohol dependence, uncomplicated; F17.210 Nicotine dependence, cigarettes, uncomplicated
CPT/HCPCS: 36415; 74177; 80053; 80306; 80307; 81001; 83605; 83690; 85025; 86140; 96365; 96366; 96375; 96376; 99285; C9113; J2405; J7030; Q9967

== ENCOUNTER 2022-08-26 13:55 | Inpatient (IN) | payer MEDICAID, SELFPAY ==
[2022-08-26] VITALS (13 sets, daily range): BP systolic 101–116; BP diastolic 60–98; PULSE 100–119; RESP 16–20; TEMP 36.8–38; O2SAT 89–99; BMI 28.1
[2022-08-26] MEDS: ondansetron 2 mg/ML SDV 2 mL 4 MG IVP (14:37)
[2022-08-26] MEDS: morphine 4 mg/mL SDV 1 mL IVP (14:37)
[2022-08-26] MEDS: sodium chloride 0.9% 1,000 ML 999 ML IV (14:38)
[2022-08-26 14:40] LABS: Basophils % 0.3 %; Eosinophils % 0.1 %; Hematocrit 24.1 % (37.0-47.0); Hemoglobin 8.7 g/dL (11.5-15.3); Lymphocytes # 1.1 10^3/uL (0.8-4.8); Lymphocytes % 16.1 %; Mean Corpuscular HGB Conc 36.1 g/dL (30.0-36.0); Mean Corpuscular Volume 113.7 fl (81-99); Mean Platelet Volume 11.8 fL (7.4-10.4); Monocytes # 0.5 10^3/uL (0.2-0.9); Neutrophils % 76.1 %; Nucleated Red Blood Cells % 0 %; Platelet Count 35 10^3/cmm (130-400); Red Blood Count 2.12 10^6/uL (4.1-5.3); Red Cell Distribution Width 19.1 % (12.1-15.1)
[2022-08-26 15:04] LABS: Alanine Aminotransferase 36 U/L (0-33); Albumin Level 3.4 g/dL (3.5-5.2); Alcohol Level 80 mg/dL (0-10); Alkaline Phosphatase 242 U/L (35-105); Anion Gap 25.6 (5-19); Aspartate Amino Transferase 151 U/L (0-32); Blood Urea Nitrogen 11 mg/dL (6-20); Calcium 8.6 mg/dL (8.5-10.5); Carbon Dioxide 16 mmol/L (22-29); Chloride 97 mmol/L (98-107); Globulin 4.6 g/dL (1.3-4.6); Glomerular Filtration Rate 104.6 mL/min (90-130); Glucose 53 mg/dL (65-115); Lipase 49 U/L (13-60); Osmolality Calculated 277 mOsm/kg (285-295); Potassium 3.6 mmol/L (3.5-5.1); Sodium 135 mmol/L (136-145)
[2022-08-26 15:07] LABS: Total Bilirubin 7.2 mg/dL (0.15-1.2)
--- NOTE | 2022-08-26 15:38 | W.ED.ABDPA2 ---
HPI - Abdominal Pain General: Chief Complaint: Abdominal Pain Stated Complaint: n/v, abd pain Time Seen by Provider: 08/26/22 13:55 History of Present Illness: 51-year-old female with history of alcohol abuse and multiple ER visit due to nausea and vomiting present emergency room today with nausea, vomiting and abdominal pain within the past few days. Patient reveals that she drank a lot of alcohol few days ago. Has vomiting blood, coughing up blood no known sick contacts or foreign travel. Describes abdominal pain as cramping sensation with severity of 7 out of 10 mostly diffusely. Is any diarrhea, bloody stool fever or chills Associated Symptoms: Reports nausea and vomiting; Denies coffee ground emesis, heartburn and hematemesis Review of Systems General: Reports: 10 or more systems reviewed and unremarkable except in HPI and below GI: Reports: abdominal pain, nausea and vomiting; Denies: hematemesis, coffee ground emesis, dysphagia or heartburn PFSH ED PFSH: Medical History Abdominal pain Abdominal pain Abdominal pain Acute dehydration Acute hypokalemia KATRIN (acute kidney injury) Alcohol dependence Alcohol dependence with withdrawal Alcohol use disorder Alcohol withdrawal Alcoholic gastritis Alcoholic hepatitis Alcoholic ketoacidosis Alcoholism Anemia Anxiety Carpal tunnel syndrome Chronic alcoholic hepatitis Chronic back pain Chronic pancreatitis Cirrhosis Enteritis Fracture of proximal phalanx of right thumb Gastritis GERD (gastroesophageal reflux disease) H. pylori infection Hepatitis A Hypokalemia Hypokalemia Hypomagnesemia Intractable nausea and vomiting Intractable nausea and vomiting Macrocytic anemia Nausea & vomiting Nausea and vomiting Pancytopenia Pancytopenia Sciatica Small bowel obstruction, partial Thrombocytopenia Tobacco dependency Urinary tract infection Surgical History H/O rotator cuff surgery H/O: hysterectomy History of appendectomy History of cholecystectomy Family History Denies family history of Diabetes CAD (coronary artery disease) Dementia Social History Smoking and tobacco status: current every day smoker Alcohol intake: current Alcohol intake frequency: 3 or more drinks per day Alcohol type: hard liquor Desire information about alcohol rehabilitation?: No Substance/Drug Use: former Current occupation: On disability Physical Exam Const: COMMON NORMALS: no acute distress, average body habitus, patient oriented x3, no limitations, healthy appearing, alert and well nourished Neck/C-Spine: COMMON NORMALS: full ROM, no lymphadenopathy, supple, no meningeal signs, no JVD, Thyroid normal and No carotid bruits THYROID: Thyroid normal Chest: COMMONS NORMALS: normal inspection of the chest, normal palpation of entire chest wall, normal inspection of the breasts and normal palpation of the breasts Breast/axilla inspection: Yes normal inspection of the breasts BREAST/AXILLA PALPATION: Yes normal palpation of the breasts Resp: COMMON NORMALS: normal respiratory effort, No retractions, No use of accessory muscles, clear to auscultation bilaterally and percussion normal AUSCULTATION: clear to auscultation bilaterally PERCUSSION: percussion normal Cardio: COMMON NORMALS: no JVD, regular rhythm, S1 normal heart sound present and S2 normal heart sound present PALPATION: normal PMI RATE: tachycardic RHYTHM: regular rhythm HEART SOUNDS: S1 normal heart sound present and S2 normal heart sound present GI: INSPECTION: Yes normal to inspection AUSCULTATION: Yes normoactive bowel sounds PALPATION: Yes Tenderness to palpation present (GI) Details: LLQ, RLQ, LUQ and RUQ PERCUSSION: normal to percussion Neuro: COMMON NORMALS: patient oriented x3 SENSORIUM/ORIENTATION: Yes alert MENINGEAL SIGNS: Yes no meningeal signs Skin: NARRATIVE SKIN EXAM: Jaundice Course Consultations: Consultation #1: Consult hospitalist. Patient be admitted for further evaluation and treatment. Vital Signs: Vital signs: Vital Signs Temperature 98.3 F 08/26/22 14:09 Pulse Rate 119 H 08/26/22 14:09 Respiratory Rate 20 H 08/26/22 14:37 Blood Pressure 115/98 08/26/22 14:09 Pulse Oximetry 96 08/26/22 14:37 Oxygen Delivery Me thod Room Air 08/26/22 14:09 MDM - Abdominal Pain Medical Decision Making Patient made comfortable emergency room. Patient was given IV fluid, IV nausea medication, IV pain medication. I reviewed past medical records and discussed plan with patient and significant other. Discussed the lab finding with patient. I consulted hospitalist and patient be admitted for further evaluation and treatment. Differential Diagnosis Likely abdominal pain, acute appendicitis, calculus of kidney, constipation, diverticulitis, endometriosis, gastroenteritis, pancreatitis and small bowel obstruction Lab Data 08/26/22 14:33 08/26/22 14:33 Labs/Radiology: Laboratory Results WBC 7.0 10^3/uL (4.0-10.0) 08/26/22 14:33 RBC 2.12 10^6/uL (4.1-5.3) L 08/26/22 14:33 Hgb 8.7 g/dL (11.5-15.3) L 08/26/22 14:33 Hct 24.1 % (37.0-47.0) L 08/26/22 14:33 MCV 113.7 fl (81-99) H 08/26/22 14:33 MCH 41.0 pg (28.0-34.0) H 08/26/22 14:33 MCHC 36.1 g/dL (30.0-36.0) H 08/26/22 14:33 RDW 19.1 % (12.1-15.1) H 08/26/22 14:33 Plt Count 35 10^3/cmm (130-400) L 08/26/22 14:33 MPV 11.8 fL (7.4-10.4) H 08/26/22 14:33 Neut % (Auto) 76.1 % 08/26/22 14:33 Lymph % (Auto) 16.1 % 08/26/22 14:33 Lawrence % (Auto) 7.0 % 08/26/22 14:33 Eos % (Auto) 0.1 % 08/26/22 14:33 Baso % (Auto) 0.3 % 08/26/22 14:33 Neut # (Auto) 5.30 10^3/uL (1.8-7.7) 08/26/22 14:33 Lymph # (Auto) 1.1 10^3/uL (0.8-4.8) 08/26/22 14:33 Lawrence # (Auto) 0.5 10^3/uL (0.2-0.9) 08/26/22 14:33 Eos # (Auto) 0.0 10^3/uL (0.0-0.8) 08/26/22 14:33 Baso # (Auto) 0.0 10^3/uL (0.0-0.1) 08/26/22 14:33 Nucleated RBC % (auto) 0 % 08/26/22 14:33 Nucleated RBCs # 0.0 /100WBC 08/26/22 14:33 Sodium 135 mmol/L (136-145) L 08/26/22 14:33 Potassium 3.6 mmol/L (3.5-5.1) 08/26/22 14:33 Chloride 97 mmol/L (98-107) L 08/26/22 14:33 Carbon Dioxide 16 mmol/L (22-29) L 08/26/22 14:33 Anion Gap 25.6 (5-19) H 08/26/22 14:33 BUN 11 mg/dL (6-20) 08/26/22 14:33 Creatinine 0.6 mg/dL (0.5-0.9) 08/26/22 14:33 GFR Calculation 104.6 mL/min (90-130) 08/26/22 14:33 Glucose 53 mg/dL (65-115) L 08/26/22 14:33 Calculated Osmolality 277 mOsm/kg (285-295) L 08/26/22 14:33 Calcium 8.6 mg/dL (8.5-10.5) 08/26/22 14:33 Total Bilirubin 7.2 mg/dL (0.15-1.2) H* 08/26/22 14:33 AST 151 U/L (0-32) H 08/26/22 14:33 ALT 36 U/L (0-33) H 08/26/22 14:33 Alkaline Phosphatase 242 U/L (35-105) H 08/26/22 14:33 Total Protein 8.0 g/dL (6.6-8.7) 08/26/22 14:33 Albumin 3.4 g/dL (3.5-5.2) L 08/26/22 14:33 Globulin 4.6 g/dL (1.3-4.6) 08/26/22 14:33 Lipase 49 U/L (13-60) 08/26/22 14:33 Ethyl Alcohol 80 mg/dL (0-10) H 08/26/22 14:33 Discharge Plan Discharge Admit Provider: Kathie Pulido Condition: Stable Prescriptions: No Action aspirin 325 mg Tablet 650 mg PO DAILY PRN (Reason: Chest Pain) Hold Instructions: see pcp before resuming albuterol sulfate 90 mcg/actuation Hfa Aerosol Inhaler 2 puff INHALATION Q6H PRN (Reason: Shortness Of Breath) ondansetron 4 mg tablet,disintegrating 4 mg PO Q6H PRN (Reason: nausea and vomiting) Qty: 20 0RF pantoprazole 40 mg tablet,delayed release (DR/EC) 40 mg PO QAM hydroxyzine HCl 25 mg tablet 25 mg PO BEDTIME PRN (Reason: Anxiety) fluticasone propionate 50 mcg/actuation spray,suspension 1 - 2 spray INTRANASAL DAILY PRN (Reason: Allergy Symptoms) Coding Level of Care Code ED Spray Drier Operator Helper for Shila Mcallister
--- NOTE | 2022-08-26 16:00 | PC.PHAR ---
pt and pts family (boyfriend) states the pt only takes the medications entered
[2022-08-26] MEDS: sodium chloride 0.9% 1,000 ML 100 ML IV (16:12)
[2022-08-26] MEDS: folic acid 1 MG, multivitamin inj 10 ML, thiamine 100 MG in sodium chloride 0.9% 1,000 ML 252.8 MG IV (16:12)
[2022-08-26] MEDS: haloperidol inj 5 mg/mL INJ 1 mL 2 MG IM (16:13)
--- NOTE | 2022-08-26 16:19 | P.HP_ITS ---
Providers/Chief Complaint Admitting Physician: Kathie Pulido MD Primary Care Provider: Aditya Degroot DO Chief Complaint: n/v, abd pain History of Present Illness Melissa Portillo is a 51 year old female who has a history of alcohol-related liver cirrhosis, active smoker, drinks vodka 500 mL she has cut down lately, presented with chief complaint of recurrent nausea vomiting Patient is stating that for last 6 to 8 months she has been nauseous but in last 4 days she has been experiencing recurrent episode of emesis. She has not noticed any fever, abdomen is getting distended, no previous history of paracentesis, active smoker, drinks on daily basis, lives with her boyfriend, she is full code Work-up shows anemia and thrombocytopenia worsening of bilirubin, creatinine n ormal, I will check INR Review of Systems Const: Denies: fever(s) Eyes: Denies: change in vision ENMT: Denies: throat pain Card: Denies: chest pain Resp: Denies: dyspnea GI: Reports: abdominal pain, nausea and vomiting : Denies: flank pain Musc: Denies: neck pain Skin/Breast: Denies: rash Neuro: Reports: headache(s) Psych: Reports: anxiety Endo: Denies: polyuria Eric/Lymph: Denies: easy bruising Medications/Allergies Home Medications Medication Instructions Recorded Confirmed Last Taken Type albuterol sulfate 90 mcg/actuation 2 puff inhalation Q6H PRN 04/07/22 08/26/22 Unknown History aerosol inhaler Shortness Of Breath aspirin 325 mg tablet 650 mg PO DAILY PRN Chest Pain 04/07/22 08/26/22 Unknown History ondansetron 4 mg disintegrating 4 mg PO Q6H PRN nausea and 06/11/22 08/26/22 Unknown Rx tablet vomiting #20 tabs fluticasone propionate 50 1 - 2 spray intranasal DAILY PRN 08/26/22 08/26/22 Unknown History mcg/actuation nasal Allergy Symptoms spray,suspension hydroxyzine HCl 25 mg tablet 25 mg PO BEDTIME PRN Anxiety 08/26/22 08/26/22 08/25/22 History pantoprazole 40 mg tablet,delayed 40 mg PO QAM 08/26/22 08/26/22 2 Days Ago History release ~08/24/22 Allergies Allergy/AdvReac Type Severity Reaction Status Date / Time codeine Allergy ALGY-Hives Verified 08/26/22 14:19 ketorolac [From Toradol] Allergy ALGY-Rash Verified 08/26/22 14:19 naproxen [From Naprosyn] Allergy ADR-Vomitin Verified 08/26/22 14:19 g prochlorperazine Allergy ALGY-Swell Verified 08/26/22 14:19 [From Compazine] Lip/Tongue/Throat Penicillins AdvReac Intermediate ADR-Vomitin Verified 08/26/22 14:19 g PFSH Acute PFSH: Medical History Abdominal pain Abdominal pain Abdominal pain Acute dehydration Acute hypokalemia KATRIN (acute kidney injury) Alcohol dependence Alcohol dependence with withdrawal Alcohol use disorder Alcohol withdrawal Alcoholic gastritis Alcoholic hepatitis Alcoholic ketoacidosis Alcoholism Anemia Anxiety Carpal tunnel syndrome Chronic alcoholic hepatitis Chronic back pain Chronic pancreatitis Cirrhosis Enteritis Fracture of proximal phalanx of right thumb Gastritis GERD (gastroesophageal reflux disease) H. pylori infection Hepatitis A Hypokalemia Hypokalemia Hypomagnesemia Intractable nausea and vomiting Intractable nausea and vomiting Macrocytic anemia Nausea & vomiting Nausea and vomiting Pancytopenia Pancytopenia Sciatica Small bowel obstruction, partial Thrombocytopenia Tobacco dependency Urinary tract infection Surgical History H/O rotator cuff surgery H/O: hysterectomy History of appendectomy History of cholecystectomy Family History Denies family history of Diabetes CAD (coronary artery disease) Dementia Social History Smoking and tobacco status: current every day smoker Alcohol intake: current Alcohol intake frequency: 3 or more drinks per day Alcohol type: hard liquor Desire information about alcohol rehabilitation?: No Substance/Drug Use: former Current occupation: On disability Vitals/I&O/Wt Last Vital Signs Temp 98.3 F 08/26/22 14:09 Pulse 119 H 08/26/22 14:09 Resp 20 H 08/26/22 14:37 BP 113/73 08/26/22 16:00 Pulse Ox 98 08/26/22 16:00 O2 Del Method Room Air 08/26/22 14:09 08/26/22 08/26/22 08/26/22 06:59 14:59 22:59 Intake Total 1000 / 1000 Balance 1000 / 1000 Weight last 48 hrs Weight 74.389 kg Physical Exam Narrative: Abdomen distended Tender to palpate Patient has scleral icterus History 6 negative Awake and alert Nonfocal neuro exam GCS 15 S1, S2 Currently on room air Able to tell me about HPI No audible stridor or wheezing Data 08/26/22 14:33 08/26/22 14:33 A&P Assessment and plan (1) Decompensated hepatic cirrhosis: (2) Alcohol abuse: (3) Nicotine dependence: (4) Hypokalemia: (5) Cirrhosis of liver: (6) Alcohol abuse: (7) Acquired hyperbilirubinemia: (8) Depression: (9) Anemia: Plan Acute DeCompensated liver cirrhosis due to alcohol MELD score Patient is actively drinking vodka on daily basis Patient is stating that she is willing to detox herself transfer she is cutting back on her alcohol intake Continue thiamine and folic acid Would use phenobarbital for alcohol related withdrawal symptoms Abdominal pain rule out SBP start ceftriaxone 2 g daily Ammonia level is high Lipase [address] abdomen pelvis with contrast Full code Clear liquid diet Continue IV fluids for volume replenishment, Hypokalemia: Repleted check mag level Pancytopenia avoid DVT prophylaxis with anticoagulating agent would use SCDs UTI Currently on ceftriaxone Attestations Medical Necessity Statement*: Anticipating discharge within 48 hours further course will be decided depending on the progress in next 24 hours Diagnoses Decompensated hepatic cirrhosis K72.90; K74.60 Alcohol abuse F10.10 Nicotine dependence F17.200 Hypokalemia E87.6 Cirrhosis of liver K74.60 Acquired hyperbilirubinemia E80.6 Depression F32.9 Anemia D64.9
[2022-08-26 16:25] LABS: Glucose Urine UA Norm (Normal); Ketones Urine 1+ (Negative); Protein Urine 1+ (Negative); Specific Gravity, Urine 1.025 (1.005-1.030); Urine Appearance Clear (CLEAR); Urine Color Amber (Yellow); pH Urine 5 (5-7)
[2022-08-26 16:26] LABS: Add Urine Microscopic? YES; Bacteria Urine 1+ /hpf; Bilirubin Urine 2+ (Negative); Blood Urine 2+ (Negative); Leukocyte Esterase Urine 1+ (Negative); Mucus Urine 1+ /hpf; Nitrate Urine Positive (Negative); RBC Urine 0-4 /hpf (0-2); Urobilinogen Urine 4+ mg/dL (Negative); WBC Urine 25-40 /hpf (0-5)
[2022-08-26 16:27] LABS: Add Urine Culture? Yes
[2022-08-26 16:30] LABS: Ammonia 82 umol/L (11-51)
[2022-08-26 16:33] LABS: Glucose Point of Care 52 mg/dL (70-110)
[2022-08-26] MEDS: dextrose 50% syringe 50 mL IVP (16:51)
--- NOTE | 2022-08-26 17:40 | CTR_ITS ---
PROCEDURE INFORMATION: Exam: CT Abdomen And Pelvis With Contrast Exam date and time: 08/27/2022 8:31 AM Age: 51 years old Clinical indication: Abdominal pain; Additional info: Abd pain TECHNIQUE: Imaging protocol: Computed tomography of the abdomen and pelvis with contrast. Radiation optimization: All CT scans at this facility use at least one of these dose optimization techniques: automated exposure control; mA and/or kV adjustment per patient size (includes targeted exams where dose is matched to clinical indication); or iterative reconstruction. Contrast material: OMNI 350; Contrast volume: 100 ml; Contrast route: INTRAVENOUS (IV); REPORTING DATA: Count of CT and Cardiac NM exams in prior 12 months: This patient has received 12 known CTs and 0 known cardiac nuclear medicine studies in the 12 months prior to the current study. COMPARISON: CT abdomen pelvis w con* [id number] 06/11/2022 4:42 PM RADIATION DOSE METRICS: Total DLP (mGy-cm): 804.54 FINDINGS: Liver: Severe fatty infiltration of the liver Gallbladder and bile ducts: Surgically removed. Possible density in the distal common bile duct. Stone not excluded. Pancreas: Peripancreatic inflammatory change. Pancreatitis not excluded Spleen: Mild splenomegaly.. Adrenal glands: Normal. No mass. Kidneys and ureters: Normal. No hydronephrosis. Stomach and bowel: Hernandez colonic marked mucosal edema/wall thickening and adjacent inflammatory change suggestive of infectious or pseudomembranous colitis. Appendix: The appendix is not definitively identified.. Intraperitoneal space: Small amount of abdominal and pelvic ascites. Vasculature: Unremarkable. No abdominal aortic aneurysm. There is varicosities throughout the abdomen. Lymph nodes: Unremarkable. No enlarged lymph nodes. Urinary bladder: Unremarkable as visualized. Reproductive: The uterus appears surgically absent Bones/joints: Unremarkable. No acute fracture. Soft tissues: Unremarkable. CT/CT abdomen pelvis w con* [id number] IMPRESSION: 1. Pancolonic marked mucosal edema/wall thickening with adjacent inflammatory change suggestive of infectious or pseudomembranous colitis. 2. Severe fatty infiltration of the liver 3. Small amount of abdominal and pelvic ascites 4. Peripancreatic inflammation. Pancreatitis not excluded. 5. Possible hyperdensity in the distal common bile duct. Stone not excluded. THIS REPORT CONTAINS FINDINGS THAT MAY BE CRITICAL TO PATIENT CARE. The findings were verbally communicated via telephone conference with MYLES, TRAN at 9:09 AM CDT on 08/27/2022. The findings were acknowledged and understood.
[2022-08-26 19:37] LABS: Vitamin B12 431 pg/mL (232-1245)
[2022-08-26] MEDS: cefTRIAXone 2,000 MG in sodium chloride 0.9% (plus) 50 ML 100 MG IV (19:48)
[2022-08-26] MEDS: magnesium oxide 400 mg tablet PO (19:48)
[2022-08-26] MEDS: metoclopramide 5 mg/mL SDV 2 mL IVP (19:48)
[2022-08-26] MEDS: dextrose 5%-sod chloride 0.9% 1,000 ML 75 ML IV (20:00)
[2022-08-26] MEDS: PHENobarbital 130 mg/mL SDV 1 mL 60 MG IM (20:19)
[2022-08-26] MEDS: acetaminophen 500 mg Tablet PO (20:19)
[2022-08-26 23:34] LABS: Estmated Average Glucose 74; Hemoglobin A1C 4.2 % (4.0-6.0)
[2022-08-26 23:53] LABS: Glucose Point of Care 148 mg/dL (70-110)
[2022-08-27] VITALS (10 sets, daily range): BP systolic 97–113; BP diastolic 61–75; PULSE 96–124; RESP 16–18; TEMP 36.6–37.4; O2SAT 93–98
[2022-08-27] MEDS: HYDROmorphone 1 mg/mL INJ 1 mL 0.2 MG IVP ×5 (02:06→22:57)
[2022-08-27] MEDS: pantoprazole DR 40 mg Tablet PO (05:44)
[2022-08-27] MEDS: ondansetron 2 mg/ML SDV 2 mL 4 MG IVP ×3 (05:44→22:55)
[2022-08-27 05:57] LABS: Basophils % 0.4 %; Eosinophils % 0.4 %; Hematocrit 21.6 % (37.0-47.0); Hemoglobin 7.5 g/dL (11.5-15.3); Lymphocytes # 0.9 10^3/uL (0.8-4.8); Lymphocytes % 18.1 %; Mean Corpuscular HGB Conc 34.7 g/dL (30.0-36.0); Mean Corpuscular Hemoglobin 41.4 pg (28.0-34.0); Mean Corpuscular Volume 119.3 fl (81-99); Mean Platelet Volume 12.2 fL (7.4-10.4); Monocytes # 0.4 10^3/uL (0.2-0.9); Monocytes % 7.3 %; Neutrophils # 3.71 10^3/uL (1.8-7.7); Neutrophils % 73.2 %; Nucleated Red Blood Cells % 0 %; Platelet Count 32 10^3/cmm (130-400); Red Blood Count 1.81 10^6/uL (4.1-5.3); Red Cell Distribution Width 19.9 % (12.1-15.1); White Blood Count 5.1 10^3/uL (4.0-10.0)
[2022-08-27] MEDS: TRAMadol 50 mg Tablet PO (06:25)
[2022-08-27 06:49] LABS: C Reactive Protein 29.4 mg/L (0.0-4.9); Phosphorus 1.2 mg/dL (2.5-4.5)
[2022-08-27 07:17] LABS: Magnesium 0.9 mg/dL (1.7-2.3)
[2022-08-27 07:37] LABS: Slide Review Slide Review Perform
[2022-08-27] MEDS: iohexol 350 mg/mL 500 mL Btl (per mL) IV (08:37)
[2022-08-27] MEDS: magnesium oxide 400 mg tablet PO (09:03)
--- NOTE | 2022-08-27 13:15 | PM.PN ---
Subjective Subjective: Patient is still endorsing abdominal discomfort No active nausea No bowel movement yet Lactulose to be administered today CT abdomen pelvis was done today which was requested on admission Pseudomembranous colitis concern, added p.o. vancomycin No fever or leukocytosis Vitals/I&O/Wt Last Vital Signs Temp 99.4 F 08/27/22 12:00 Pulse 106 H 08/27/22 12:00 Resp 17 08/27/22 12:00 BP 99/63 08/27/22 12:00 Pulse Ox 94 08/27/22 12:00 O2 Del Method Room Air 08/27/22 12:00 08/26/22 08/27/22 08/27/22 22:59 06:59 14:59 Intake Total 2387.867 / 2387.867 360 / 360 Balance 2387.867 / 2387.867 360 / 360 Weight last 48 hrs Weight 74.389 kg Physical Exam Narrative: Anasarca Scleral icterus Asterixis negative Complaining abdominal pain Abdominal tenderness on deep palpation Ascites S1, S2 Currently on room air is at the bedside Data 08/27/22 05:06 08/26/22 14:33 A&P Assessment and plan (1) Decompensated hepatic cirrhosis: (2) Acquired hyperbilirubinemia: (3) Alcohol abuse: (4) Cirrhosis of liver: (5) Hypokalemia: (6) Nicotine dependence: (7) Thrombocytopenia: (8) Anemia: (9) Pseudomembranous colitis: Plan Decompensated liver cirrhosis Concern for pseudomembranous colitis versus inflammatory colitis Change antibiotics to Zosyn and p.o. vancomycin Requested C. difficile Concern for bile duct stone however liver enzymes are trending down, alkaline phosphatase is trending down as well Afebrile In case of any worsening my threshold still low to request MRCP I do not see any acute indication at this point over the weekend High ammonia, continue lactulose and rifaximin Will request diagnostic tap to rule out SBP Alcohol abuse: Patient is still drinking alcohol She does not want to go to any facility for detox Continue phenobarbital thiamine and folic acid, I would use phenobarbital p.o. regimen on MedSurg if her withdrawal CIWA is greater than 12 she can get IV or IM phenobarbital 120 mg every 2-3 hours No acute withdrawal symptoms Pancreatitis related to alcohol: Clear liquid diet Opioids for pain management Patient is getting lactulose UTI: On antibiotics, urine culture request admission Anemia and thrombocytopenia related to underlying portal hypertension Requested FOBT Avoid DVT prophylaxis because of thrombocytopenia Patient is full code On clear liquid diet Attestations Medical Necessity Statement*: Continue medical management Diagnoses Decompensated hepatic cirrhosis K72.90; K74.60 Acquired hyperbilirubinemia E80.6 Alcohol abuse F10.10 Cirrhosis of liver K74.60 Hypokalemia E87.6 Nicotine dependence F17.200 Thrombocytopenia D69.6 Anemia D64.9 Pseudomembranous colitis A04.72
[2022-08-27] MEDS: piperacillin-tazobactam 3.375 GM in sodium chloride 0.9% (plus) 50 ML IV ×2 (14:18→21:24)
[2022-08-27] MEDS: magnesium sulfate premix 4 GM/100 ML PREMIX IV (14:18)
[2022-08-27] MEDS: lactulose oral liq 20 gm/30 mL UDC 30 GM PO (14:55)
[2022-08-27] MEDS: PHENobarbital 32.4 mg Tablet 97.2 MG PO (17:16)
[2022-08-27] MEDS: Fleet Enema 133 mL Enema PR (18:50)
[2022-08-28] VITALS (11 sets, daily range): BP systolic 91–101; BP diastolic 54–67; PULSE 90–103; RESP 16–19; TEMP 36.3–37.1; O2SAT 94–97
[2022-08-28] MEDS: ondansetron 2 mg/ML SDV 2 mL 4 MG IVP ×4 (03:57→21:47)
[2022-08-28] MEDS: HYDROmorphone 1 mg/mL INJ 1 mL 0.2 MG IVP ×5 (05:06→21:47)
[2022-08-28] MEDS: piperacillin-tazobactam 3.375 GM in sodium chloride 0.9% (plus) 50 ML IV ×3 (05:15→21:29)
[2022-08-28] MEDS: pantoprazole DR 40 mg Tablet PO (05:16)
[2022-08-28 06:00] LABS: Basophils % 0.4 %; Eosinophils # 0.1 10^3/uL (0.0-0.8); Eosinophils % 2.3 %; Lymphocytes % 20.6 %; Mean Corpuscular HGB Conc 35.4 g/dL (30.0-36.0); Mean Corpuscular Hemoglobin 41.2 pg (28.0-34.0); Mean Corpuscular Volume 116.5 fl (81-99); Mean Platelet Volume 12.2 fL (7.4-10.4); Monocytes # 0.3 10^3/uL (0.2-0.9); Monocytes % 6.7 %; Neutrophils # 3.29 10^3/uL (1.8-7.7); Neutrophils % 69.4 %; Nucleated Red Blood Cells % 0 %; Platelet Count 40 10^3/cmm (130-400); White Blood Count 4.8 10^3/uL (4.0-10.0)
[2022-08-28 06:27] LABS: Alanine Aminotransferase 43 U/L (0-33); Albumin Level 2.9 g/dL (3.5-5.2); Alkaline Phosphatase 160 U/L (35-105); Anion Gap 15.7 (5-19); Aspartate Amino Transferase 138 U/L (0-32); Blood Urea Nitrogen 10 mg/dL (6-20); Calcium 8.4 mg/dL (8.5-10.5); Carbon Dioxide 21 mmol/L (22-29); Chloride 101 mmol/L (98-107); Globulin 3.8 g/dL (1.3-4.6); Glomerular Filtration Rate 129.1 mL/min (90-130); Glucose 82 mg/dL (65-115); Osmolality Calculated 278 mOsm/kg (285-295); Sodium 135 mmol/L (136-145); Total Protein 6.7 g/dL (6.6-8.7)
[2022-08-28 07:35] LABS: Potassium 2.7 mmol/L (3.5-5.1); Total Bilirubin 10.6 mg/dL (0.15-1.2)
[2022-08-28 07:40] LABS: Hematocrit 19.8 % (37.0-47.0); Slide Review Slide Review Perform
[2022-08-28 07:47] LABS: INR 1.69 (0.8-1.2)
[2022-08-28 07:48] LABS: Partial Thromboplastin Time 45.5 SECONDS (23.9-36.7)
[2022-08-28 07:57] LABS: D Dimer 5.11 ug/mIFEU (0-0.59)
[2022-08-28 08:21] LABS: Fibrinogen 191 mg/dL (174-498)
[2022-08-28] MEDS: magnesium oxide 400 mg tablet PO ×2 (08:38→17:47)
[2022-08-28] MEDS: folic acid 1 mg Tablet PO (08:38)
--- NOTE | 2022-08-28 08:44 | MR_ITS ---
WS: [id number] MRI/MRCP OF THE ABDOMEN WITHOUT GADOLINIUM ENHANCEMENT TECHNIQUE: Coronal T2 Fase BH, Axial T2 Fase BH, Axial T2 FS BH, Zxial 3D Cote BH, Axial DWI BH, 2D MRCP Radial BH, 3D MRCP (Resp), and Axial 3D Dyn BH Post sequences. CLINICAL INFORMATION: poss cbd stone COMPARISON: CT August 27, 2022 FINDINGS: Susceptibility artifact from cholecystectomy clips degrades images at the estrellita hepatis. Ar tifact partially obscures the estrellita hepatis and some images of the bile duct. Marked hepatomegaly. Diffuse fatty infiltration of the liver. Small amount perihepatic ascites. Lung bases are well aerated. Small esophageal hiatal hernia. Mild splenomegaly. Prior cholecystectomy. Por dafne vein and splenic vein appears patent. Normal caliber upper abdominal aorta. Celiac and SMA are pa tent. Adrenal glands are normal. Normal kidneys bilaterally. No hydronephrosis. Mild dilatation of th e common bile duct which tapers normally distally where visualized. No evidence of choledocholithiasi s. No intrahepatic biliary ductal dilatation. Partially visualized colitis involving the transverse colon with diffuse wall edema. MR/MR MRCP [id number] Impression: 1. Prior cholecystectomy. 2. Limited visualization of the common bile duct due to susceptibility artifac t from cholecystectomy clips. No evidence of choledocholithiasis considering li mitations 3. Marked hepatomegaly with diffuse fatty infiltration. 4. Small amount of perihepatic ascites. 5. Partially evaluated colitis transverse colon as described on the recent CT.
[2022-08-28] MEDS: lidocaine 1% 5 ML in potassium chloride premix 100 ML 26.25 ML IV (09:31)
--- NOTE | 2022-08-28 10:21 | P.PN_ITS ---
Subjective Subjective: She is not feeling a whole lot better. Abdomen is bothering her around the umbilicus, as well as right upper quadrant, right flank. Denies diarrhea. Vitals/I&O/Wt Last Vital Signs Temp 98.6 F 08/28/22 08:00 Pulse 95 08/28/22 08:00 Resp 16 08/28/22 09:33 BP 96/65 08/28/22 08:00 Pulse Ox 97 08/28/22 09:33 O2 Del Method Room Air 08/28/22 08:00 08/27/22 08/28/22 08/28/22 22:59 06:59 14:59 Intake Total 170 / 530 50 / 580 1390 / 1390 Balance 170 / 530 50 / 580 1390 / 1390 Weight last 48 hrs Weight 74.389 kg Physical Exam Const: COMMON NORMALS: patient oriented x3 and alert GENERAL APPEARANCE: cooperative ORIENTATION/CONSCIOUSNESS: Yes awake HENMT: COMMON NORMALS: oropharynx normal Neck/C-Spine: COMMON NORMALS: no JVD Resp: COMMON NORMALS: normal respiratory effort and clear to auscultation bilaterally AUSCULTATION: clear to auscultation bilaterally Cardio: COMMON NORMALS: no JVD, regular rhythm, S1 normal heart sound present, S2 normal heart sound present and No murmurs present (Cardio) RHYTHM: regular rhythm HEART SOUNDS: S1 normal heart sound present and S2 normal heart sound present GI: COMMON NORMALS: Normal to inspection, nondistended, normoactive bowel sounds present and Soft to palpation PALPATION: Yes Soft to palpation and Yes Tenderness to palpation present (GI) (Periumbilical, RUQ) Extremity: COMMON NORMALS: no joint enlargement and no pedal edema Neuro: COMMON NORMALS: patient oriented x3 and moves all extremities SENSORIUM/ORIENTATION: Yes alert Skin: COMMON NORMALS: no rashes or lesions noted GENERAL SKIN EXAM: no rashes or lesions noted Data 08/28/22 05:15 08/28/22 05:15 Micro: Microbiology 08/27/22 18:00 Occult Blood (FIT) - Final Stool - Stool Aspirate A&P Assessment and plan (1) Decompensated hepatic cirrhosis: (2) Acquired hyperbilirubinemia: (3) Alcohol abuse: (4) Cirrhosis of liver: (5) Hypokalemia: (6) Nicotine dependence: (7) Thrombocytopenia: (8) Anemia: (9) Pseudomembranous colitis: Plan Hyperbilirubinemia: Concern for CBD stone/choledocholithiasis/CBD obstruction. T. bili continues to increase, up to 10.6. She is having periumbilical but also right upper quadrant pain. Discussed with her we will obtain stat MRCP. If confirmed, at risk of cholangitis, sepsis, other complications. Discussed with her in such case consideration may be given to transfer her to a facility able to perform ERCP. She is without leukocytosis, so far no additional recurrence of fever, 100.4 Fahrenheit on 08/26. On CLD for now if tolerating. Decompensated liver cirrhosis: Noted thrombocytopenia, platelet 40 K, INR 1.69, sodium 135, AST 138, ALT 43. Possible alcoholic hepatitis. AST and ALT have been gradually improving. PT 20.5. Bilirubin elevated. Monitor discriminant function indicating poor prognosis. Steroid not a safe option at this time. High ammonia, continue lactulose and rifaximin Would benefit from paracentesis. Concern for pseudomembranous colitis versus inflammatory colitis. p.o. vancomycin. C. difficile ordered. Alcohol abuse: Patient is still drinking alcohol She does not want to go to any facility for detox Continue phenobarbital thiamine and folic acid, Monitor CIWA. Has received phenobarbital last night for withdrawal symptoms. CIWA was up to 12. Pancreatitis related to alcohol: Clear liquid diet. Follow-up lipase. Opioids for pain management Patient is getting lactulose UTI: On antibiotics, urine culture request admission Worsened anemia: Hemoglobin up to 7. Hemoccult has been requested. Change Protonix to IV twice daily in case of low upper GI bleed. Anemia and t hrombocytopenia suspected related to underlying portal hypertension Avoid DVT prophylaxis because of thrombocytopenia Patient is full code On clear liquid diet Discussed with case management. Attestations Medical Necessity Statement*: Can any admission for assessment management of worsening hyperbilirubinemia, concern for choledocholithiasis, possible alcohol induced hepatitis, worsening anemia, pancreatitis, additional coronary disease above. Diagnoses Decompensated hepatic cirrhosis K72.90; K74.60 Acquired hyperbilirubinemia E80.6 Alcohol abuse F10.10 Cirrhosis of liver K74.60 Hypokalemia E87.6 Nicotine dependence F17.200 Thrombocytopenia D69.6 Anemia D64.9 Pseudomembranous colitis A04.72
--- NOTE | 2022-08-28 13:41 | US_ITS ---
WS: [id number] ULTRASOUND ABDOMEN LIMITED CLINICAL INFORMATION: Paracentesis COMPARISON: None. FINDINGS: Only a small amount of ascites visualized. Small amount of perihepatic ascites and pericolic gutter a scites. Insufficient fluid for paracentesis . US/US paracentesis abd w [id number] IMPRESSION: Insufficient fluid at this time for paracentesis or fluid sampling
[2022-08-28] MEDS: pantoprazole 40 mg SDV IVP (17:42)
[2022-08-29] VITALS (20 sets, daily range): BP systolic 89–110; BP diastolic 56–75; PULSE 85–102; RESP 14–20; TEMP 36.3–37.1; O2SAT 93–99
[2022-08-29] MEDS: HYDROmorphone 1 mg/mL INJ 1 mL 0.2 MG IVP ×5 (03:01→21:17)
[2022-08-29] MEDS: ondansetron 2 mg/ML SDV 2 mL 4 MG IVP ×4 (03:01→21:17)
[2022-08-29 05:31] LABS: Basophils % 0.2 %; Eosinophils # 0.1 10^3/uL (0.0-0.8); Eosinophils % 1.7 %; Lymphocytes # 0.8 10^3/uL (0.8-4.8); Lymphocytes % 20.5 %; Mean Corpuscular HGB Conc 34.8 g/dL (30.0-36.0); Mean Corpuscular Hemoglobin 41.6 pg (28.0-34.0); Mean Corpuscular Volume 119.5 fl (81-99); Mean Platelet Volume 12.1 fL (7.4-10.4); Monocytes # 0.4 10^3/uL (0.2-0.9); Monocytes % 9.8 %; Neutrophils # 2.73 10^3/uL (1.8-7.7); Neutrophils % 66.8 %; Nucleated Red Blood Cells % 0.7 %; Platelet Count 72 10^3/cmm (130-400); Red Blood Count 1.54 10^6/uL (4.1-5.3); Red Cell Distribution Width 20.7 % (12.1-15.1); White Blood Count 4.1 10^3/uL (4.0-10.0)
[2022-08-29 05:49] LABS: Lipase 35 U/L (13-60)
[2022-08-29 05:50] LABS: Hematocrit 18.4 % (37.0-47.0); Hemoglobin 6.4 g/dL (11.5-15.3)
[2022-08-29 05:51] LABS: Alanine Aminotransferase 41 U/L (0-33); Albumin Level 2.9 g/dL (3.5-5.2); Alkaline Phosphatase 138 U/L (35-105); Blood Urea Nitrogen 10 mg/dL (6-20); Calcium 8.4 mg/dL (8.5-10.5); Carbon Dioxide 19 mmol/L (22-29); Chloride 104 mmol/L (98-107); Globulin 3.2 g/dL (1.3-4.6); Glomerular Filtration Rate 371.6 mL/min (90-130); Glucose 87 mg/dL (65-115); Magnesium 1.7 mg/dL (1.7-2.3); Osmolality Calculated 280 mOsm/kg (285-295); Sodium 136 mmol/L (136-145); Total Protein 6.1 g/dL (6.6-8.7)
[2022-08-29] MEDS: piperacillin-tazobactam 3.375 GM in sodium chloride 0.9% (plus) 50 ML IV ×3 (05:53→21:23)
[2022-08-29] MEDS: pantoprazole 40 mg SDV IVP ×2 (05:53→17:15)
[2022-08-29 06:17] LABS: Anion Gap 16.3 (5-19); Potassium 3.3 mmol/L (3.5-5.1)
[2022-08-29 06:18] LABS: Aspartate Amino Transferase 124 U/L (0-32)
[2022-08-29 06:19] LABS: Total Bilirubin 11.6 mg/dL (0.15-1.2)
[2022-08-29] MEDS: magnesium oxide 400 mg tablet PO ×2 (08:56→16:47)
[2022-08-29] MEDS: folic acid 1 mg Tablet PO (08:56)
[2022-08-29] MEDS: lactulose oral liq 20 gm/30 mL UDC 30 GM PO (08:56)
[2022-08-29] MEDS: potassium phosphate (mEq K) 40 MEQ in sodium chloride 0.9% (100 ml) 100 ML 27.25 MEQ IV (09:40)
[2022-08-29 11:18] LABS: LAB Peripheral Smear Sent for Review
[2022-08-29] MEDS: lidocaine 1% INJ 10 mL (per mL) 2.5 ML XX (12:42)
[2022-08-29 13:01] LABS: Lactate Dehydrogenase 411 U/L (135-214)
[2022-08-29 13:08] LABS: Fibrinogen 209 mg/dL (174-498); Partial Thromboplastin Time 41.3 SECONDS (23.9-36.7)
[2022-08-29 13:55] LABS: Total Bilirubin 14.6 mg/dL (0.15-1.2)
--- NOTE | 2022-08-29 16:42 | USR_ITS ---
PROCEDURE INFORMATION: Exam: US Duplex Lower Extremity Veins, Bilateral Exam date and time: 08/29/2022 5:23 PM Age: 51 years old Clinical indication: Other: Assess for dvt TECHNIQUE: Imaging protocol: Real-time duplex ultrasound of the bilateral extremities with 2-D plascencia scale, color Doppler flow and spectral waveform analysis including responses to compression and other maneuvers (when performed) with image documentation. Complete exam focused on the lower extremity veins. COMPARISON: US soft tissue/extremity [id number] 04/30/2018 7:27 PM FINDINGS: Right deep veins: Unremarkable. The common femoral, femoral, proximal profunda femoral and popliteal veins are patent without thrombus. Normal Doppler waveforms. Normal compressibility and/or augmentation response. Right superficial veins: Saphenofemoral junction is patent without thrombus. Left deep veins: Unremarkable. The common femoral, femoral, proximal profunda femoral and popliteal veins are patent without thrombus. Normal Doppler waveforms. Normal compressibility and/or augmentation response. Left superficial veins: Saphenofemoral junction is patent without thrombus. Soft tissues: Unremarkable. US/[place] [id number] IMPRESSION: No evidence of deep vein thrombosis.
--- NOTE | 2022-08-29 18:50 | PM.TDS ---
Transfer Summary Providers Date of Admission: 08/27/22 15:52 Date of Discharge/Transfer: 08/29/22 Attending Provider at Admission: Marc Pulido MD Attending Provider at Transfer: Rolando Villa Primary Care Provider: Aditya Degroot DO Transfer Plans: Anticipated date of transfer: 08/29/22. Diagnoses at Discharge Discharge Diagnosis (1) Decompensated hepatic cirrhosis: Status: Acute (2) Acquired hyperbilirubinemia: Status: Acute (3) Alcohol abuse: Status: Acute (4) Cirrhosis of liver: Status: Acute (5) Hypokalemia: Status: Acute (6) Nicotine dependence: Status: Acute (7) Thrombocytopenia: Status: Acute (8) Anemia: Status: Acute (9) Pseudomembranous colitis: Status: Acute Reason for Visit Reason for Visit n/v, abd pain Hospital Course Hospital Course Pleasant 51-year-old lady with history of alcoholic cirrhosis, smoking, alcoholic gastritis, last EGD back in April 2022 with erosive gastritis, no varices, presented to hospital on 08/26 with symptoms of abdominal pain, nausea, vomiting, and presentation with low-grade fever 100.4, without leukocytosis. With microcytic anemia, hemoglobin 8.7, worse thrombocytopenia than usual, platelets 35,000, previously 50,000 in May, 121 in April. Presentation with liver abnormality, T. bili 7.2, alk phos 242. AST 151. ALT 36. Normal lipase. CT abdomen pelvis with appendicolith, marked mucosal edema/wall thickening with adjacent inflammatory change suggestive of infectious or pseudomembranous colitis. Severe fatty liver infiltration. Small amount of abdominal and pelvic ascites. Pancreatic inflammation. Pancreatitis not excluded. Possible hyperdensity in the distal common bile duct. Stone not excluded. She was started empirically on antibiotic coverage with Zosyn, oral vancomycin, pain and nausea control. Without improvement in symptoms on 08/28, with worsening T. bili up to 10.6 assessed by MRCP, with noted prior cholecystectomy, limited visualization of common bile duct due to susceptibility artifact from cholecystectomy clips. Some motion artifact as well. No evidence of choledocholithiasis considering limitations. Small mount of prehepatic ascites. Partially visualized colitis transverse colon as per CT. With consideration of possible SBP, continue antibiotic, assessed by ultrasound, but not enough fluid for paracentesis. Consideration of alcohol use gastritis, started on PPI IV twice daily. Consideration of alcohol hepatitis, Miki discriminant elevated, her, not found to be safe candidate at that time for steroids. With consideration also possible UTI with abnormal UA on presentation. Urine culture pending. Continued with supportive care. Today with persistent symptoms, worsening bilirubin up to 11.6. This morning additionally with anemia. Hemoglobin 7.5 on 08/27, 7 on 08/28. This morning 6.4. RBC transfusion was requested overnight. Requested additionally haptoglobin which came back as low at 23, LDH 411. Peripheral smear requested, not yet back. DIC profile requested, INR is 1.7, last prior to that back in January 2020 was 1.19. No additional abnormalities D-dimer 5.8. Some degree of hemolysis, with mild splenomegaly, cannot exclude also discussed with them some low-grade DIC, although fibrinogen is noted normal. Venous duplex obtained, without evidence of DVT. Otherwise without symptoms of PE, no pleuritic pain, saturating 97% on room air. Suspected more likely secondary to liver disease as otherwise symptoms not suggestive of PE. CTA is requested. Additional assessment or fractionated bilirubin today revealed bilirubin that was higher still this afternoon at 14.6. Predominantly direct bilirubin 12.8. Given continually worsening bilirubin, lack of improvement in symptoms, concern is whether or not there is CBD occlusion, although at the moment does not appear to have cholangitis. Additionally concern for possibility of decompensated liver cirrhosis. Transfer sought initially with [facility] with concern for choledocholithiasis, consideration of ERCP, however, recommendation for higher level of care with [facility] or [facility] for additional assessment by hepatology. Per discussion with specialist at [facility] consideration is that her findings may be more likely secondary to severe alcohol induced hepatitis. Kindly accepted for transfer and further consideration. Patient and understand this, and that hopefully there may not be CBD occlusion and may not require ERCP, and hopefully with supportive care alcohol hepatitis will turn around. She is still at high risk of additional complications. As with consideration of possibility of superimposed viral infection requested acute hepatitis panel which is pending. Additionally adding vancomycin is noted to have enterococcal UTI with more than 100,000 CFU. Additionally just not getting results on C. difficile study with C. difficile PCR positive for C. difficile toxin B gene. Although reflex antigen result states Toxin A and/or B not present. Confirming result with micro lab. Continue PO vancomycin for now as clinically there is concern for C. difficile. Fidoxamicin not available. Occult blood negative. Stool bacterial and parasite panels are negative. Physical Exam Narrative: Accompanied by . Const: COMMON NORMALS: patient oriented x3 and alert GENERAL APPEARANCE: cooperative ORIENTATION/CONSCIOUSNESS: Yes awake HENMT: COMMON NORMALS: oropharynx normal Eye: SCLERA: scleral abnormal Laterality of scleral abnormality: positive bilateral scleral icterus Neck/C-Spine: COMMON NORMALS: no JVD Resp: COMMON NORMALS: normal respiratory effort and clear to auscultation bilaterally AUSCULTATION: clear to auscultation bilaterally Cardio: COMMON NORMALS: no JVD, regular rhythm, S1 normal heart sound present, S2 normal heart sound present and No murmurs present (Cardio) RHYTHM: regular rhythm HEART SOUNDS: S1 normal heart sound present and S2 normal heart sound present GI: COMMON NORMALS: Normal to inspection, nondistended, normoactive bowel sounds present and Soft to palpation PALPATION: Yes Soft to palpation and Yes Tenderness to palpation present (GI) (Periumbilical, RUQ) Extremity: COMMON NORMALS: no joint enlargement and no pedal edema Neuro: COMMON NORMALS: patient oriented x3 and moves all extremities SENSORIUM/ORIENTATION: Yes alert Skin: COMMON NORMALS: no rashes or lesions noted GENERAL SKIN EXAM: no rashes or lesions noted OTHER: Jaundiced TS Data Studies Completed and Pending Pending at discharge Category Date Time Status Albumin Body Fluid Routine Lab 08/27/22 13:42 Ordered Amylase Body Fluid Routine Lab 08/27/22 13:42 Ordered Blood Culture Stat Lab 08/29/22 17:44 Results Body Fluid Analysis Routine Lab 08/27/22 13:42 Ordered Body Fluid Culture & GS Routine Lab 08/27/22 13:42 Ordered Complete Blood Count w/Auto AM LABS Lab 08/30/22 04:00 Ordered Complete Blood Count w/Auto AM LABS Lab 08/31/22 04:00 Ordered Comprehensive Metabolic Panel AM LABS Lab 08/30/22 04:00 Ordered Comprehensive Metabolic Panel AM LABS Lab 08/31/22 04:00 Ordered Fibrinogen Degradation Product Routine Lab 08/28/22 05:15 Received Fibrinogen Degradation Product Routine Lab 08/29/22 12:26 Received Glucose Body Fluid Routine Lab 08/27/22 13:42 Ordered Hepatitis Acute Panel Routine Lab 08/29/22 18:19 Received LDH Body Fluid Routine Lab 08/27/22 13:42 Ordered Lipase AM LABS Lab 08/30/22 04:00 Ordered Mycobacteria, Culture w/Fluor Routine Lab 08/27/22 13:42 Ordered Total Protein Body Fluid Routine Lab 08/27/22 13:42 Ordered Triglycerides Body Fluid Routine Lab 08/27/22 13:42 Ordered Uric Acid Body Fluid Routine Lab 08/27/22 13:42 Ordered pH Body Fluid Routine Lab 08/27/22 13:42 Ordered Labs from last 24 hours 08/29/22 08/29/22 08/29/22 18:19 12:26 12:26 WBC RBC Hgb Hct MCV MCH MCHC RDW Plt Count MPV Neut % (Auto) Lymph % (Auto) [place] % (Auto) Eos % (Auto) Baso % (Auto) Neut # (Auto) Lymph # (Auto) [place] # (Auto) Eos # (Auto) Baso # (Auto) Nucleated RBC % (auto) Nucleated RBCs # Peripher Smr Path Cons Haptoglobin 23.0 L PT 20.50 H INR 1.70 H APTT 41.3 H Fibrinogen 209 Fibrin Degrad Products D-Dimer 5.80 H Sodium Potassium Chloride Carbon Dioxide Anion Gap BUN Creatinine GFR Calculation Glucose Calculated Osmolality Calcium Phosphorus Magnesium Total Bilirubin 14.6 H* Direct Bilirubin 12.80 H Indirect Bilirubin 1.80 AST ALT Alkaline Phosphatase Lactate Dehydrogenase 411 H Total Protein Albumin Globulin Lipase Hepatitis A IgM Ab Pending Hep Bs Antigen Pending Hep B Core IgM Ab Pending Hepatitis C Antibody Pending Blood Type Rho(D) Type Antibody Screen Crossmatch 08/29/22 08/29/22 08/29/22 05:20 05:20 05:20 WBC 4.1 RBC 1.54 L Hgb 6.4 L* Hct 18.4 L* MCV 119.5 H MCH 41.6 H MCHC 34.8 RDW 20.7 H Plt Count 72 L D MPV 12.1 H Neut % (Auto) 66.8 Lymph % (Auto) 20.5 [place] % (Auto) 9.8 Eos % (Auto) 1.7 Baso % (Auto) 0.2 Neut # (Auto) 2.73 Lymph # (Auto) 0.8 [place] # (Auto) 0.4 Eos # (Auto) 0.1 Baso # (Auto) 0.0 Nucleated RBC % (auto) 0.7 Nucleated RBCs # 0.0 Peripher Smr Path Cons Sent for review Haptoglobin PT INR APTT Fibrinogen Fibrin Degrad Products D-Dimer Sodium 136 Potassium 3.3 L Chloride 104 Carbon Dioxide 19 L Anion Gap 16.3 BUN 10 Creatinine 0.2 L GFR Calculation 371.6 H Glucose 87 Calculated Osmolality 280 L Calcium 8.4 L Phosphorus 1.0 L Magnesium 1.7 Total Bilirubin 11.6 H* Direct Bilirubin Indirect Bilirubin AST 124 H ALT 41 H Alkaline Phosphatase 138 H Lactate Dehydrogenase Total Protein 6.1 L Albumin 2.9 L Globulin 3.2 Lipase Hepatitis A IgM Ab Hep Bs Antigen Hep B Core IgM Ab Hepatitis C Antibody Blood Type Rho(D) Type Antibody Screen Crossmatch 08/29/22 08/28/22 05:20 11:50 WBC RBC Hgb Hct MCV MCH MCHC RDW Plt Count MPV Neut % (Auto) Lymph % (Auto) [place] % (Auto) Eos % (Auto) Baso % (Auto) Neut # (Auto) Lymph # (Auto) [place] # (Auto) Eos # (Auto) Baso # (Auto) Nucleated RBC % (auto) Nucleated RBCs # Peripher Smr Path Cons Haptoglobin PT INR APTT Fibrinogen Fibrin Degrad Products D-Dimer Sodium Potassium Chloride Carbon Dioxide Anion Gap BUN Creatinine GFR Calculation Glucose Calculated Osmolality Calcium Phosphorus Magnesium Total Bilirubin Direct Bilirubin Indirect Bilirubin AST ALT Alkaline Phosphatase Lactate Dehydrogenase Total Protein Albumin Globulin Lipase 35 Hepatitis A IgM Ab Hep Bs Antigen Hep B Core IgM Ab Hepatitis C Antibody Blood Type A Positive Rho(D) Type Positive Antibody Screen Negative Crossmatch See Detail Completed Studies During Hospitalization Category Date Time Status CT abdomen pelvis w con* [id number] Routine Cat Scan 08/26/22 17:40 Completed MR MRCP [id number] Stat MRI 08/28/22 08:44 [place] [id number] Routine Ultrasound 08/29/22 16:42 Completed US abdomen lmt fluid [id number] Routine Ultrasound 08/28/22 13:41 Completed Laboratory Last Values WBC 4.1 10^3/uL (4.0-10.0) 08/29/22 05:20 RBC 1.54 10^6/uL (4.1-5.3) L 08/29/22 05:20 Hgb 6.4 g/dL (11.5-15.3) L* 08/29/22 05:20 Hct 18.4 % (37.0-47.0) L* 08/29/22 05:20 MCV 119.5 fl (81-99) H 08/29/22 05:20 MCH 41.6 pg (28.0-34.0) H 08/29/22 05:20 MCHC 34.8 g/dL (30.0-36.0) 08/29/22 05:20 RDW 20.7 % (12.1-15.1) H 08/29/22 05:20 Plt Count 72 10^3/cmm (130-400) L D 08/29/22 05:20 MPV 12.1 fL (7.4-10.4) H 08/29/22 05:20 Neut % (Auto) 66.8 % 08/29/22 05:20 Lymph % (Auto) 20.5 % 08/29/22 05:20 [place] % (Auto) 9.8 % 08/29/22 05:20 Eos % (Auto) 1.7 % 08/29/22 05:20 Baso % (Auto) 0.2 % 08/29/22 05:20 Neut # (Auto) 2.73 10^3/uL (1.8-7.7) 08/29/22 05:20 Lymph # (Auto) 0.8 10^3/uL (0.8-4.8) 08/29/22 05:20 [place] # (Auto) 0.4 10^3/uL (0.2-0.9) 08/29/22 05:20 Eos # (Auto) 0.1 10^3/uL (0.0-0.8) 08/29/22 05:20 Baso # (Auto) 0.0 10^3/uL (0.0-0.1) 08/29/22 05:20 Nucleated RBC % (auto) 0.7 % 08/29/22 05:20 Nucleated RBCs # 0.0 /100WBC 08/29/22 05:20 Peripher Smr Path Cons Sent for review 08/29/22 05:20 Haptoglobin 23.0 mg/L (30-200) L 08/29/22 12:26 PT 20.50 SECONDS (12.1-14.9) H 08/29/22 12:26 INR 1.70 (0.8-1.2) H 08/29/22 12:26 APTT 41.3 SECONDS (23.9-36.7) H 08/29/22 12:26 Fibrinogen 209 mg/dL (174-498) 08/29/22 12:26 Fibrin Degrad Products ug/mL (NEG) 08/29/22 12:26 D-Dimer 5.80 ug/mIFEU (0-0.59) H 08/29/22 12:26 Sodium 136 mmol/L (136-145) 08/29/22 05:20 Potassium 3.3 mmol/L (3.5-5.1) L 08/29/22 05:20 Chloride 104 mmol/L (98-107) 08/29/22 05:20 Carbon Dioxide 19 mmol/L (22-29) L 08/29/22 05:20 Anion Gap 16.3 (5-19) 08/29/22 05:20 BUN 10 mg/dL (6-20) 08/29/22 05:20 Creatinine 0.2 mg/dL (0.5-0.9) L 08/29/22 05:20 GFR Calculation 371.6 mL/min (90-130) H 08/29/22 05:20 Glucose 87 mg/dL (65-115) 08/29/22 05:20 POC Glucose 148 mg/dL (70-110) H 08/26/22 17:18 Estimat Average Glucose 74 08/26/22 14:33 Hemoglobin A1c 4.2 % (4.0-6.0) 08/26/22 14:33 Calculated Osmolality 280 mOsm/kg (285-295) L 08/29/22 05:20 Calcium 8.4 mg/dL (8.5-10.5) L 08/29/22 05:20 Phosphorus 1.0 mg/dL (2.5-4.5) L 08/29/22 05:20 Magnesium 1.7 mg/dL (1.7-2.3) 08/29/22 05:20 Total Bilirubin 14.6 mg/dL (0.15-1.2) H* 08/29/22 12:26 Direct Bilirubin 12.80 mg/dL (0.00-0.30) H 08/29/22 12:26 Indirect Bilirubin 1.80 08/29/22 12:26 AST 124 U/L (0-32) H 08/29/22 05:20 ALT 41 U/L (0-33) H 08/29/22 05:20 Alkaline Phosphatase 138 U/L (35-105) H 08/29/22 05:20 Ammonia 82 umol/L (11-51) H 08/26/22 16:08 Lactate Dehydrogenase 411 U/L (135-214) H 08/29/22 12:26 C-Reactive Protein 29.4 mg/L (0.0-4.9) H 08/27/22 05:06 Total Protein 6.1 g/dL (6.6-8.7) L 08/29/22 05:20 Albumin 2.9 g/dL (3.5-5.2) L 08/29/22 05:20 Globulin 3.2 g/dL (1.3-4.6) 08/29/22 05:20 Lipase 35 U/L (13-60) 08/29/22 05:20 Vitamin B12 431 pg/mL (232-1245) 08/26/22 14:33 Urine Color Maribel (Yellow) 08/26/22 15:39 Urine Appearance Clear (CLEAR) 08/26/22 15:39 Urine pH 5 (5-7) 08/26/22 15:39 Ur Specific [place] 1.025 (1.005-1.030) 08/26/22 15:39 Urine Protein 1+ (Negative) H 08/26/22 15:39 Urine Glucose (UA) Norm (Normal) 08/26/22 15:39 Urine Ketones 1+ (Negative) H 08/26/22 15:39 Urine Blood 2+ (Negative) H 08/26/22 15:39 Urine Nitrate Positive (Negative) H 08/26/22 15:39 Urine Bilirubin 2+ (Negative) H 08/26/22 15:39 Urine Urobilinogen 4+ mg/dL (Negative) H 08/26/22 15:39 Ur Leukocyte Esterase 1+ (Negative) H 08/26/22 15:39 Urine RBC 0-4 /hpf (0-2) H 08/26/22 15:39 Urine WBC 25-40 /hpf (0-5) H 08/26/22 15:39 Ur Squamous Epith Cells 5-10 /hpf (0-5) H 08/26/22 15:39 Amorphous Sediment Not Reportable 08/26/22 15:39 Urine Bacteria 1+ /hpf (NONE) H 08/26/22 15:39 Urine Mucus 1+ /hpf 08/26/22 15:39 Ethyl Alcohol 80 mg/dL (0-10) H 08/26/22 14:33 Blood Type A Positive 08/28/22 11:50 Rho(D) Type Positive 08/28/22 11:50 Antibody Screen Negative 08/28/22 11:50 Crossmatch See Detail 08/28/22 11:50 Radiology Impressions Abdomen/Pelvis CT 08/26/22 17:40 IMPRESSION: 1. Pancolonic marked mucosal edema/wall thickening with adjacent inflammatory change suggestive of infectious or pseudomembranous colitis. 2. Severe fatty infiltration of the liver 3. Small amount of abdominal and pelvic ascites 4. Peripancreatic inflammation. Pancreatitis not excluded. 5. Possible hyperdensity in the distal common bile duct. Stone not excluded. THIS REPORT CONTAINS FINDINGS THAT MAY BE CRITICAL TO PATIENT CARE. The findings were verbally communicated via telephone conference with MARC PULIDO at 9:09 AM CDT on 08/27/2022. The findings were acknowledged and understood. Cholangiopancreatography MRI 08/28/22 08:44 Impression: 1. Prior cholecystectomy. 2. Limited visualization of the common bile duct due to susceptibility artifact from cholecystectomy clips. No evidence of choledocholithiasis considering limitations 3. Marked hepatomegaly with diffuse fatty infiltration. 4. Small amount of perihepatic ascites. 5. Partially evaluated colitis transverse colon as described on the recent CT. Abdomen Ultrasound 08/28/22 13:41 IMPRESSION: Insufficient fluid at this time for paracentesis or fluid sampling Venous Duplex 08/29/22 16:42 IMPRESSION: No evidence of deep vein thrombosis. Recent Clincial Data Last Vital Signs Temp 98.6 F 08/29/22 16:00 Pulse 101 H 08/29/22 16:00 Resp 16 08/29/22 17:15 BP 110/56 08/29/22 16:00 Pulse Ox 97 08/29/22 17:15 O2 Del Method Room Air 08/29/22 09:47 Vital Signs Temp Pulse Resp BP Pulse Ox O2 Del Method 08/29/22 16:00 98.6 F 101 H 16 110/56 94 08/29/22 17:15 16 97 08/29/22 14:26 95 08/29/22 12:45 98.2 F 95 16 108/71 97 08/29/22 12:19 16 96 08/29/22 11:45 98.2 F 99 16 96/75 96 08/29/22 10:45 98.1 F 92 14 101/69 93 08/29/22 10:30 98.7 F 89 15 90/64 93 08/29/22 10:15 98.8 F 95 16 95/67 94 08/29/22 09:47 97.9 F 98 17 104/71 99 Room Air 08/29/22 09:03 98.2 F 102 H 16 105/71 96 08/29/22 08:00 90 20 H 96 Room Air 08/29/22 08:20 14 95 Intake & Output/Weight 08/27/22 08/28/22 08/29/22 08/30/22 06:59 06:59 06:59 06:59 Intake Total 2387.867 / 2387.867 580 / 580 1954 1159.0909 / 1159.0909 Balance 2387.867 / 2387.867 580 / 580 1954 1159.0909 / 1159.0909 Weight 74.389 kg Vitals Last Vital Signs Temp 98.6 F 08/29/22 16:00 Pulse 101 H 08/29/22 16:00 Resp 16 08/29/22 17:15 BP 110/56 08/29/22 16:00 Pulse Ox 97 08/29/22 17:15 O2 Del Method Room Air 08/29/22 09:47 TS Medications Medications Acetaminophen (Acetaminophen 500 Mg Tablet) 500 mg PO Q4H PRN PRN Reason: fever Last Admin: 08/26/22 20:19 Dose: 500 mg Albuterol/Ipratropium (Ipratropium-Albuterol 3 Ml Neb) 3 ml INHALATION Q6H PRN PRN Reason: SHORTNESS OF BREATH Folic Acid (Folic Acid 1 Mg Tablet) 1 mg PO DAILY ANNETTA Last Admin: 08/29/22 08:56 Dose: 1 mg Hydromorphone HCl (Hydromorphone 1 Mg/Ml Inj 1 Ml) 0.2 mg IVP Q4H PRN PRN Reason: pain Last Admin: 08/29/22 17:15 Dose: 0.2 mg Piperacillin Sod/Tazobactam (Sod 3.375 gm/ Sodium Chloride) 50 mls @ 12.5 mls/hr IV Q8H [facility]; Protocol Last Infusion: 08/29/22 18:30 Dose: Infused Lactulose (Lactulose Oral Liq 20 Gm/30 Ml Udc) 30 gm PO TID [facility] Last Admin: 08/29/22 14:04 Dose: Not Given Magnesium Oxide (Magnesium Oxide 400 Mg Tablet) 400 mg PO BID [facility] Last Admin: 08/29/22 16:47 Dose: 400 mg Ondansetron HCl (Ondansetron 2 Mg/Ml Sdv 2 Ml) 4 mg IVP Q6H PRN PRN Reason: NAUSEA AND VOMITING Last Admin: 08/29/22 17:15 Dose: 4 mg Pantoprazole Sodium (Pantoprazole 40 Mg Sdv) 40 mg IVP Q12H [facility] Last Admin: 08/29/22 17:15 Dose: 40 mg Phenobarbital (Phenobarbital 32.4 Mg Tablet) 97.2 mg PO BID PRN PRN Reason: ALCOHOL WITHDRAWAL Last Admin: 08/27/22 17:16 Dose: 97.2 mg Rifaximin (Rifaximin 550 Mg Tablet) 550 mg PO BID [facility]; Protocol Last Admin: 08/29/22 16:46 Dose: 550 mg Sodium Chloride (Sodium Chloride 0.9% 100 Ml Bag) 50 ml IV PRN PRN PRN Reason: Blood transfusion prime and flush Stop: 08/30/22 06:37 Thiamine HCl (Thiamine 100 Mg/Ml Sdv) 100 mg IVP DAILY [facility] Last Admin: 08/29/22 08:20 Dose: 100 mg Vancomycin HCl (Vancomycin 1,000 Mg Oral Angela (Btl)) 125 mg PO QID [facility] Last Admin: 08/29/22 16:47 Dose: 125 mg Discontinued Medications Dextrose (Dextrose 50% Syringe 50 Ml) 50 ml IVP ONCE ONE Stop: 08/26/22 16:33 Last Admin: 08/26/22 16:51 Dose: 50 ml Haloperidol Lactate (Haloperidol Inj 5 Mg/Ml Inj 1 Ml) 2 mg IM NOW ONE Stop: 08/26/22 16:03 Last Admin: 08/26/22 16:13 Dose: 2 mg Sodium Chloride (Sodium Chloride 0.9%) 1,000 mls @ 999 mls/hr IV .Q1H1M ONE Stop: 08/26/22 15:19 Last Infusion: 08/26/22 16:16 Dose: Infused Folic Acid 1 mg/ Multivitamins 10 ml/ Thiamine HCl 100 mg/Sodium Chloride 1,011.2 mls @ 252.8 mls/hr IV ONCE ONE Stop: 08/26/22 19:59 Last Infusion: 08/26/22 20:31 Dose: Infused Sodium Chloride (Sodium Chloride 0.9%) 1,000 mls @ 100 mls/hr IV .Q10H ANNETTA Last Infusion: 08/26/22 19:28 Dose: Infused Ceftriaxone Sodium 2,000 mg/ (Sodium Chloride) 50 mls @ 100 mls/hr IV Q24H [facility]; Protocol Last Infusion: 08/26/22 20:31 Dose: Infused Dextrose/Sodium Chloride (Dextrose 5%-Sod Chloride 0.9%) 1,000 mls @ 75 mls/hr IV .[id number] ANNETTA Last Infusion: 08/28/22 07:39 Dose: Infused Magnesium Sulfate (Magnesium Sulfate Premix) 4 gm in 100 mls @ 50 mls/hr IV ONCE ONE Stop: 08/27/22 15:29 Last Infusion: 08/28/22 07:39 Dose: Infused Lidocaine HCl 5 ml/ Potassium (Chloride) 105 mls @ 26.25 mls/hr IV ONCE ONE Stop: 08/28/22 12:43 Last Infusion: 08/28/22 14:01 Dose: Infused Potassium Phosphate 40 meq/ (Sodium Chloride) 109.0909 mls @ 27.25 mls/hr IV ONCE ONE Stop: 08/29/22 12:52 Last Infusion: 08/29/22 14:26 Dose: Infused Iohexol (Iohexol 350 Mg/Ml 500 Ml Btl (Per Ml)) 0 ml IV ONCE ONE Stop: 08/27/22 08:37 Last Admin: 08/27/22 08:37 Dose: 100 ml Lidocaine HCl (Lidocaine 1% Inj 10 Ml (Per Ml)) 5 ml XX ONCE ONE Stop: 08/29/22 12:31 Lidocaine HCl (Lidocaine 1% Inj 10 Ml (Per Ml)) 2.5 ml XX ONCE ONE Stop: 08/29/22 12:31 Last Admin: 08/29/22 12:42 Dose: 2.5 ml Metoclopramide HCl (Metoclopramide 5 Mg/Ml Sdv 2 Ml) 5 mg IVP ONCE ONE Stop: 08/26/22 18:25 Last Admin: 08/26/22 19:48 Dose: 5 mg Morphine Sulfate (Morphine 4 Mg/Ml Sdv 1 Ml) 4 mg IVP ONCE ONE Stop: 08/26/22 14:20 Last Admin: 08/26/22 14:37 Dose: 4 mg Ondansetron HCl (Ondansetron 2 Mg/Ml Sdv 2 Ml) 4 mg IVP ONCE ONE Stop: 08/26/22 14:20 Last Admin: 08/26/22 14:37 Dose: 4 mg Pantoprazole Sodium (Pantoprazole Dr 40 Mg Tablet) 40 mg PO QAM ANNETTA Last Admin: 08/28/22 05:16 Dose: 40 mg Phenobarbital Sodium (Phenobarbital 130 Mg/Ml Sdv 1 Ml) 60 mg IM Q6H PRN PRN Reason: Alcohol Withdrawal, ciwa>[id number] Last Admin: 08/26/22 20:19 Dose: 60 mg Phenobarbital Sodium (Phenobarbital 130 Mg/Ml Sdv 1 Ml) 60 mg IV Q6H [facility] Last Admin: 08/28/22 07:39 Dose: Not Given Phenobarbital Sodium (Phenobarbital 130 Mg/Ml Sdv 1 Ml) 60 mg IV Q6H PRN PRN Reason: ALCOHOL WITHDRAWAL Potassium Chloride (Potassium Chloride Er 20 Meq Tablet) 40 meq PO ONCE ONE Stop: 08/26/22 18:25 Last Admin: 08/26/22 20:31 Dose: Not Given Sodium Phosphate (Fleet Enema 133 Ml Enema) 133 ml ME ONCE ONE Stop: 08/27/22 12:38 Last Admin: 08/27/22 18:50 Dose: 133 ml Tramadol HCl (Tramadol 50 Mg Tablet) 50 mg PO ONCE ONE Stop: 08/27/22 06:08 Last Admin: 08/27/22 06:25 Dose: 50 mg Allergies codeine Allergy (Verified 08/26/22 14:19) ALGY-Hives ketorolac [From Toradol] Allergy (Verified 08/26/22 14:19) ALGY-Rash naproxen [From Naprosyn] Allergy (Verified 08/26/22 14:19) ADR-Vomiting prochlorperazine [From Compazine] Allergy (Verified 08/26/22 14:19) ALGY-Swell Lip/Tongue/Throat Penicillins Adverse Reaction (Intermediate, Verified 08/26/22 14:19) ADR-Vomiting Vomiting Home Medications albuterol sulfate 90 mcg/actuation aerosol inhaler 2 puff inhalation Q6H PRN Shortness Of Breath 04/07/22 [History Confirmed 08/26/22] aspirin 325 mg tablet 650 mg PO DAILY PRN Chest Pain 04/07/22 [History Confirmed 08/26/22] ondansetron 4 mg disintegrating tablet 4 mg PO Q6H PRN nausea and vomiting #20 tabs 06/11/22 [Rx Confirmed 08/26/22] fluticasone propionate 50 mcg/actuation nasal spray,suspension 1 - 2 spray intranasal DAILY PRN Allergy Symptoms 08/26/22 [History Confirmed 08/26/22] hydroxyzine HCl 25 mg tablet 25 mg PO BEDTIME PRN Anxiety 08/26/22 [History Confirmed 08/26/22] pantoprazole 40 mg tablet,delayed release 40 mg PO QAM 08/26/22 [History Confirmed 08/26/22] Discharge Plan Discharge Patient Disposition: Xfer Short-Term Hosp Condition: Stable Prescriptions: No Action aspirin 325 mg Tablet 650 mg PO DAILY PRN (Reason: Chest Pain) Hold Instructions: see pcp before resuming albuterol sulfate 90 mcg/actuation Hfa Aerosol Inhaler 2 puff INHALATION Q6H PRN (Reason: Shortness Of Breath) ondansetron 4 mg tablet,disintegrating 4 mg PO Q6H PRN (Reason: nausea and vomiting) Qty: 20 0RF pantoprazole 40 mg tablet,delayed release (DR/EC) 40 mg PO QAM hydroxyzine HCl 25 mg tablet 25 mg PO BEDTIME PRN (Reason: Anxiety) fluticasone propionate 50 mcg/actuation spray,suspension 1 - 2 spray INTRANASAL DAILY PRN (Reason: Allergy Symptoms) Referrals: Aditya Degroot DO [Primary Care Provider] - Discharge Diet: Low Cholesterol Patient Instructions: Opioid Safety Transfer Attestations Time Spent in Transfer Care: greater than 30 min Status at Transfer: Cognitive status at transfer: cognitively intact; Behavioral status at transfer: cooperative; Quality Metrics Clinical Quality Measures [ No reported AMI, CVA or VTE this stay] Coding Level of Care Code 73942 Total time (in minutes) for Discharge: 75 Diagnoses Decompensated hepatic cirrhosis K72.90; K74.60 Acquired hyperbilirubinemia E80.6 Alcohol abuse F10.10 Cirrhosis of liver K74.60 Hypokalemia E87.6 Nicotine dependence F17.200 Thrombocytopenia D69.6 Anemia D64.9 Pseudomembranous colitis A04.72
--- NOTE | 2022-08-29 19:07 | CTR_ITS ---
PROCEDURE INFORMATION: Exam: CTA Chest With Contrast Exam date and time: 08/29/2022 8:08 PM Age: 51 years old Clinical indication: Shortness of breath; Additional info: Assess for pe TECHNIQUE: Imaging protocol: Computed tomographic angiography of the chest with contrast. Exam focused on the arteries. 3D rendering (Not supervised by radiologist): MIP and/or 3D reconstructed images were created by the technologist. Radiation optimization: All CT scans at this facility use at least one of these dose optimization techniques: automated exposure control; mA and/or kV adjustment per patient size (includes targeted exams where dose is matched to clinical indication); or iterative reconstruction. Contrast material: OMNI 350; Contrast volume: 100 ml; Contrast route: INTRAVENOUS (IV); REPORTING DATA: Count of CT and Cardiac NM exams in prior 12 months: This patient has received 13 known CTs and 0 known cardiac nuclear medicine studies in the 12 months prior to the current study. COMPARISON: CT angio chest w abd pel w con 06/01/2021 4:22 PM RADIATION DOSE METRICS: Total DLP (mGy-cm): 331.61 FINDINGS: Pulmonary arteries: Normal. No pulmonary emboli. Aorta: No aortic aneurysm. No aortic dissection. Lungs: Patulous ground-glass opacities noted within the anterior upper lobes of both lungs. Scattered calcified granulomas noted in both lungs. No masses. Pleural spaces: No pneumothorax. No pleural effusion. Heart: No cardiomegaly. No pericardial effusion. Lymph nodes: Partially calcified mediastinal hilar lymph nodes noted consistent with prior granulomatous disease. No enlarged lymph nodes. Bones/joints: No acute fracture. Soft tissues: Unremarkable. CT/CT angio chest PE protcl [id number] IMPRESSION: 1. Negative for pulmonary embolism. 2. Nonspecific patulous ground-glass opacities noted within the anterior upper lobes of both lungs suggestive of an infectious or inflammatory process.
--- NOTE | 2022-08-29 19:22 | PC.PHAR ---
Patient: Floor: Age: 51 yo Serum creatinine: 0.6 mg/dL Height: 63.8 Inches Weight (kg): 74 IBW (kg): 54.24 Dosing wt(kg): 74 Estimated Creatinine clearance (ml/min): 92.8 CRCL method: Cockcroft and Gault using ibw(default). Drug selected: Vancomycin Loading dose (mg): Vd (liters): 51.8 (factor used: 0.7 L/kg) Suhas (hr-1): 0.081 Half life (hrs): 8.56 CLvanco=?? 4.196 L/hr Recommended dose: 1250 mg Interval: 12 hrs Infusion time (hrs): 1 Predicted peak (mcg/mL): 37.3 Predicted trough (mcg/mL): 15.30 Total body weight is being used for vancomycin dosing. Recommendations: Give Vancomycin 1250 mg q 12 hrs with an expected Cpeak of 37.3 mcg/ml and an expected Ctrough of 15.30 mcg/ml AUC 0-24 /DEANGELO Data: DEANGELO 0.5 mcg/mL:?? AUC/DEANGELO:? 1191.6 DEANGELO 1.0 mcg/mL:?? AUC/DEANGELO:? 595.8 --------- DEANGELO 1.5 mcg/mL:?? AUC/DEANGELO:? 397.2 DEANGELO 2.0 mcg/mL:?? AUC/DEANGELO:? 297.9 Renal dosing of other antibiotics (review renal dosing of other medications and list guidelines here): Thank you for the consult, will continue to follow. Signature: Too Vicente, NataliiaD
[2022-08-29] MEDS: iohexol 350 mg/mL 500 mL Btl (per mL) IV (20:12)
[2022-08-29] MEDS: vancomycin 1,250 MG/250 ML PIGGYBACK 200 MG IV (20:23)
[2022-08-29 21:11] LABS: Hepatitis A Antibody IgM Non-Reactive (Nonreactive); Hepatitis B Core IgM Non-Reactive (Nonreactive); Hepatitis B Surface Antigen Non-Reactive (Nonreactive); Hepatitis C Virus Antibody Non-Reactive (Nonreactive)
[2022-08-30] VITALS (13 sets, daily range): BP systolic 93–110; BP diastolic 63–72; PULSE 80–101; RESP 15–18; TEMP 36.5–37; O2SAT 92–98
[2022-08-30] MEDS: ondansetron 2 mg/ML SDV 2 mL 4 MG IVP ×2 (01:59→08:03)
[2022-08-30] MEDS: HYDROmorphone 1 mg/mL INJ 1 mL 0.2 MG IVP ×5 (02:00→18:02)
[2022-08-30] MEDS: piperacillin-tazobactam 3.375 GM in sodium chloride 0.9% (plus) 50 ML IV ×3 (05:21→22:04)
[2022-08-30] MEDS: pantoprazole 40 mg SDV IVP ×2 (05:21→17:56)
[2022-08-30 05:42] LABS: Basophils % 0.7 %; Eosinophils # 0.1 10^3/uL (0.0-0.8); Eosinophils % 2.4 %; Lymphocytes % 21.7 %; Mean Corpuscular HGB Conc 38.1 g/dL (30.0-36.0); Mean Corpuscular Hemoglobin 41.7 pg (28.0-34.0); Mean Corpuscular Volume 109.4 fl (81-99); Mean Platelet Volume 12.5 fL (7.4-10.4); Monocytes # 0.7 10^3/uL (0.2-0.9); Monocytes % 16.2 %; Neutrophils # 2.64 10^3/uL (1.8-7.7); Neutrophils % 58.6 %; Nucleated Red Blood Cells % 0.4 %; Platelet Count 106 10^3/cmm (130-400); Red Blood Count 1.92 10^6/uL (4.1-5.3); Red Cell Distribution Width 25.6 % (12.1-15.1); White Blood Count 4.5 10^3/uL (4.0-10.0)
[2022-08-30 06:11] LABS: Lipase 33 U/L (13-60)
[2022-08-30 06:12] LABS: Alanine Aminotransferase 41 U/L (0-33); Albumin Level 3.1 g/dL (3.5-5.2); Alkaline Phosphatase 143 U/L (35-105); Anion Gap 13.6 (5-19); Aspartate Amino Transferase 108 U/L (0-32); Blood Urea Nitrogen 8 mg/dL (6-20); Calcium 8.8 mg/dL (8.5-10.5); Carbon Dioxide 22 mmol/L (22-29); Chloride 105 mmol/L (98-107); Globulin 3.5 g/dL (1.3-4.6); Glomerular Filtration Rate 232.7 mL/min (90-130); Glucose 76 mg/dL (65-115); Osmolality Calculated 281 mOsm/kg (285-295); Potassium 3.6 mmol/L (3.5-5.1); Sodium 137 mmol/L (136-145); Total Protein 6.6 g/dL (6.6-8.7)
[2022-08-30 06:15] LABS: Slide Review Slide Review Perform
[2022-08-30 06:16] LABS: Creatinine Clr Calc Pharmacy 214.2345
[2022-08-30 06:18] LABS: Total Bilirubin 15.2 mg/dL (0.15-1.2)
[2022-08-30] MEDS: lactulose oral liq 20 gm/30 mL UDC 30 GM PO ×2 (07:50→22:04)
[2022-08-30] MEDS: magnesium oxide 400 mg tablet PO ×2 (07:57→17:56)
[2022-08-30] MEDS: folic acid 1 mg Tablet PO (07:57)
[2022-08-30] MEDS: vancomycin 1,250 MG/250 ML PIGGYBACK 250 MG IV ×2 (08:02→20:05)
--- NOTE | 2022-08-30 09:37 | PC.NURSE ---
Altaf called and update given. No bed available
--- NOTE | 2022-08-30 11:27 | PC.NURSE ---
Report received from Aliyah ABREU
--- NOTE | 2022-08-30 11:52 | PC.NURSE ---
Patient does not want to eat anything but ate sherbert and would like more later.
[2022-08-30] MEDS: PHENobarbital 32.4 mg Tablet 97.2 MG PO (17:56)
--- NOTE | 2022-08-30 19:13 | PM.PN ---
Subjective Subjective: He was having abdominal pain somewhat diffusely, states feels like being , and worst of the pain concentrated in upper abdomen and right upper quadrant. Vitals/I&O/Wt Last Vital Signs Temp 97.7 F 08/30/22 16:00 Pulse 85 08/30/22 16:00 Resp 18 08/30/22 18:02 BP 93/63 08/30/22 16:00 Pulse Ox 94 08/30/22 18:02 O2 Del Method Room Air 08/30/22 08:29 08/30/22 08/30/22 08/30/22 06:59 14:59 22:59 Intake Total 50 / 1209.0909 990 / 990 240 / 1230 Balance 50 / 1205.0909 990 / 990 240 / 1230 Physical Exam Narrative: Accompanied by . Const: COMMON NORMALS: patient oriented x3 and alert GENERAL APPEARANCE: cooperative ORIENTATION/CONSCIOUSNESS: Yes awake HENMT: COMMON NORMALS: oropharynx normal Eye: SCLERA: scleral abnormal Laterality of scleral abnormality: positive bilateral scleral icterus Neck/C-Spine: COMMON NORMALS: no JVD Resp: COMMON NORMALS: normal respiratory effort and clear to auscultation bilaterally AUSCULTATION: clear to auscultation bilaterally Cardio: COMMON NORMALS: no JVD, regular rhythm, S1 normal heart sound present, S2 normal heart sound present and No murmurs present (Cardio) RHYTHM: regular rhythm HEART SOUNDS: S1 normal heart sound present and S2 normal heart sound present GI: COMMON NORMALS: Normal to inspection, nondistended, normoactive bowel sounds present and Soft to palpation PALPATION: Yes Soft to palpation and Yes Tenderness to palpation present (GI) (Epigastric, RUQ) Extremity: COMMON NORMALS: no joint enlargement and no pedal edema Neuro: COMMON NORMALS: patient oriented x3 and moves all extremities SENSORIUM/ORIENTATION: Yes alert Skin: COMMON NORMALS: no rashes or lesions noted GENERAL SKIN EXAM: no rashes or lesions noted OTHER: Jaundiced Data 08/30/22 05:10 08/30/22 05:10 Micro: Microbiology 08/29/22 17:44 Blood Culture - Preliminary Blood NEGATIVE TO DATE 08/29/22 17:20 Blood Culture - Preliminary Blood NEGATIVE TO DATE 08/29/22 15:45 Clostridioides difficile Toxins A&B (PCR) - Final Stool Routine Collection 08/26/22 15:39 Urine Culture - Final Urine,Clean Catch Enterococcus faecalis 08/27/22 18:00 C.difficile Toxin B Gene (PCR) - Final Stool Routine Collection A&P Assessment and plan (1) Decompensated hepatic cirrhosis: (2) Acquired hyperbilirubinemia: (3) Alcohol abuse: (4) Cirrhosis of liver: (5) Hypokalemia: (6) Nicotine dependence: (7) Thrombocytopenia: (8) Anemia: (9) Pseudomembranous colitis: Plan Hyperbilirubinemia: Concern for CBD stone/choledocholithiasis/CBD obstruction. Pending transfer for additional assessment and management at [facility]. Additionally tried to find out today what procedure she was scheduled for by Dr. 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 T. bili today noted worsened up to 15.2. Alk phos worse up to 143. AST 108, LT 41. Afebrile. Empirically continue Zosyn, vancomycin. Continue CLD, she wanted to try something more substantial, trying some crackers, bread. Discussed with nursing staff. Discussed with case management. Decompensated liver cirrhosis: Platelets noted to increase further up to 106. Follow-up INR, DIC panel. Liver parameters. CBC. Possible alcoholic hepatitis. AST and ALT have been gradually improving. PT 20.5. Bilirubin elevated. Monitor discriminant function indicating poor prognosis. High ammonia, continue lactulose and rifaximin Not enough fluid for paracentesis. Cannot exclude possibly of SBP continue empiric antibiotic coverage with Zosyn. Concern for pseudomembranous colitis versus inflammatory colitis. p.o. vancomycin. C. difficile noted positive. Toxin antigen negative, however, not great sensitivity, additionally with clinical and imaging findings of colitis discussed with patient and her . They are agreeable to continue vancomycin treatment for suspected C. difficile colitis. Fidaxomicin not available. Alcohol abuse: Patient is still drinking alcohol She does not want to go to any facility for detox Continue phenobarbital thiamine and folic acid, Monitor CIWA. Has received phenobarbital last night for withdrawal symptoms. CIWA was up to 12. Pancreatitis related to alcohol: Clear liquid diet. Follow-up lipase noted normal. Opioids for pain management Patient is getting lactulose UTI: On antibiotics, urine culture request admission Worsened anemia: Responded to RBC transfusion. Hemoglobin up to 8. Hemoccult has been requested. Change Protonix to IV twice daily in case of low upper GI bleed. Anemia and thrombocytopenia suspected related to underlying portal hypertension. Avoid DVT prophylaxis because of thrombocytopenia Patient is full code On clear liquid diet Discussed with case management. Attestations Medical Necessity Statement*: Continue admission for assessment and management of worsening hyperbilirubinemia, concern for possible choledocholithiasis pending transfer for additional assessment at [facility], alcohol related hepatitis, decompensated liver cirrhosis. Diagnoses Decompensated hepatic cirrhosis K72.90; K74.60 Acquired hyperbilirubinemia E80.6 Alcohol abuse F10.10 Cirrhosis of liver K74.60 Hypokalemia E87.6 Nicotine dependence F17.200 Thrombocytopenia D69.6 Anemia D64.9 Pseudomembranous colitis A04.72
[2022-08-31] VITALS (14 sets, daily range): BP systolic 98–106; BP diastolic 64–73; PULSE 80–94; RESP 15–19; TEMP 36.4–36.8; O2SAT 94–97
[2022-08-31] MEDS: HYDROmorphone 1 mg/mL INJ 1 mL 0.2 MG IVP ×7 (00:27→23:17)
[2022-08-31] MEDS: ondansetron 2 mg/ML SDV 2 mL 4 MG IVP (03:29)
[2022-08-31] MEDS: pantoprazole 40 mg SDV IVP ×2 (05:02→18:20)
[2022-08-31] MEDS: piperacillin-tazobactam 3.375 GM in sodium chloride 0.9% (plus) 50 ML IV ×3 (05:47→21:32)
[2022-08-31 07:09] LABS: Alanine Aminotransferase 37 U/L (0-33); Albumin Level 2.9 g/dL (3.5-5.2); Alkaline Phosphatase 132 U/L (35-105); Anion Gap 15.1 (5-19); Aspartate Amino Transferase 99 U/L (0-32); Blood Urea Nitrogen 6 mg/dL (6-20); Calcium 8.4 mg/dL (8.5-10.5); Carbon Dioxide 21 mmol/L (22-29); Chloride 102 mmol/L (98-107); Globulin 3.5 g/dL (1.3-4.6); Glomerular Filtration Rate 371.6 mL/min (90-130); Glucose 91 mg/dL (65-115); Osmolality Calculated 277 mOsm/kg (285-295); Potassium 3.1 mmol/L (3.5-5.1); Sodium 135 mmol/L (136-145); Total Protein 6.4 g/dL (6.6-8.7)
[2022-08-31 07:14] LABS: Total Bilirubin 15.4 mg/dL (0.15-1.2)
[2022-08-31 07:42] LABS: Vancomycin Trough 21.8 ug/mL (10-15)
[2022-08-31 08:16] LABS: Basophils % 0.6 %; Eosinophils # 0.1 10^3/uL (0.0-0.8); Eosinophils % 2.4 %; Hematocrit 21.9 % (37.0-47.0); Hemoglobin 7.9 g/dL (11.5-15.3); Lymphocytes # 1.2 10^3/uL (0.8-4.8); Lymphocytes % 21.6 %; Mean Corpuscular HGB Conc 36.1 g/dL (30.0-36.0); Mean Corpuscular Hemoglobin 41.4 pg (28.0-34.0); Mean Corpuscular Volume 114.7 fl (81-99); Monocytes # 1.2 10^3/uL (0.2-0.9); Monocytes % 21.8 %; Neutrophils # 2.84 10^3/uL (1.8-7.7); Neutrophils % 52.9 %; Nucleated Red Blood Cells % 0.7 %; Platelet Count 105 10^3/cmm (130-400); Red Blood Count 1.91 10^6/uL (4.1-5.3); Red Cell Distribution Width 25.7 % (12.1-15.1); White Blood Count 5.4 10^3/uL (4.0-10.0)
[2022-08-31] MEDS: PHENobarbital 32.4 mg Tablet 97.2 MG PO (09:45)
[2022-08-31] MEDS: folic acid 1 mg Tablet PO (09:45)
[2022-08-31] MEDS: magnesium oxide 400 mg tablet PO ×2 (09:45→18:20)
[2022-08-31] MEDS: potassium chloride ER 20 mEq Tablet PO (09:46)
--- NOTE | 2022-08-31 10:13 | PC.NURSE ---
Updated Solit[facility] with vital signs and labs at this time. Still awaiting a bed.
[2022-08-31] MEDS: vancomycin 1,250 MG/250 ML PIGGYBACK 200 MG IV (13:43)
--- NOTE | 2022-08-31 15:13 | PM.PN ---
Subjective Subjective: Still nauseated. Still having abdominal pain, diffusely, worse in upper abdomen, right upper quadrant. Vomiting has let up. Still loose stools. Poor appetite. Vitals/I&O/Wt Last Vital Signs Temp 97.9 F 08/31/22 12:00 Pulse 90 08/31/22 12:00 Resp 16 08/31/22 13:43 BP 98/70 08/31/22 12:00 Pulse Ox 94 08/31/22 13:43 O2 Del Method Room Air 08/31/22 09:30 08/31/22 08/31/22 08/31/22 06:59 14:59 22:59 Intake Total 50 0 530 / 530 Balance 50 1939 530 / 530 Physical Exam Const: COMMON NORMALS: patient oriented x3 and alert GENERAL APPEARANCE: cooperative ORIENTATION/CONSCIOUSNESS: Yes awake HENMT: COMMON NORMALS: oropharynx normal Eye: SCLERA: scleral abnormal Laterality of scleral abnormality: positive bilateral scleral icterus Neck/C-Spine: COMMON NORMALS: no JVD Resp: COMMON NORMALS: normal respiratory effort and clear to auscultation bilaterally AUSCULTATION: clear to auscultation bilaterally Cardio: COMMON NORMALS: no JVD, regular rhythm, S1 normal heart sound present, S2 normal heart sound present and No murmurs present (Cardio) RHYTHM: regular rhythm HEART SOUNDS: S1 normal heart sound present and S2 normal heart sound present GI: COMMON NORMALS: Normal to inspection, nondistended, normoactive bowel sounds present and Soft to palpation PALPATION: Yes Soft to palpation and Yes Tenderness to palpation present (GI) (Epigastric, RUQ) Extremity: COMMON NORMALS: no joint enlargement and no pedal edema Neuro: COMMON NORMALS: patient oriented x3 and moves all extremities SENSORIUM/ORIENTATION: Yes alert Skin: COMMON NORMALS: no rashes or lesions noted GENERAL SKIN EXAM: no rashes or lesions noted OTHER: Jaundiced Yeast odor Data 08/31/22 06:30 08/31/22 06:30 Micro: Microbiology 08/29/22 17:44 Blood Culture - Preliminary Blood NEGATIVE TO DATE 08/29/22 17:20 Blood Culture - Preliminary Blood NEGATIVE TO DATE A&P Assessment and plan (1) Decompensated hepatic cirrhosis: (2) Acquired hyperbilirubinemia: (3) Alcohol abuse: (4) Cirrhosis of liver: (5) Hypokalemia: (6) Nicotine dependence: (7) Thrombocytopenia: (8) Anemia: (9) Pseudomembranous colitis: Plan Hyperbilirubinemia: Discussed with radiology at [facility] with regards to contrast CT scan, portal vein patent with good contrast, no evidence of portal vein thrombosis. Noted some portal hypertension and lower and upper abdominal varices. Still pending bed at [facility]. Concern for occult CBD stone/choledocholithiasis/CBD obstruction. Pending transfer for additional assessment and management at [facility]. Still unable to find out what procedure she was scheduled for by Dr. Steward in [place], however, requested with staff to keep trying. T. bili today noted worsened up to 15.4. Alk phos slightly better 132. AST slightly better 99, ALT 37. Empirically continue Zosyn, vancomycin. Continue oral vancomycin for C. difficile. Continue CLD. Poor appetite. Continued nausea. Antiemetics as needed. Discussed with case management and nursing. Decompensated liver cirrhosis: At risk for life-threatening complications with alcohol induced hepatitis, decompensated cirrhosis. Platelets plateaued at 105. Follow-up INR, DIC panel were requested but recently not drawn, possibly poor sample. We will request for the morning. Liver parameters. CBC. Possible alcoholic hepatitis. AST and ALT have been gradually improving. PT prolonged. Bilirubin elevated. Madrey discriminant function indicating poor prognosis. Continue lactulose and rifaximin. Continue to monitor mental status. Not enough fluid for paracentesis. Cannot exclude possibly of SBP continue empiric antibiotic coverage with Zosyn. Suspected C. difficile colitis. Concern for pseudomembranous colitis versus inflammatory colitis on imaging. Diarrhea. Abdominal pain. P.o. vancomycin. C. difficile noted positive. Toxin antigen negative, however, not great sensitivity, additionally with clinical and imaging findings of colitis discussed with patient and her . They are agreeable to continue vancomycin treatment for suspected C. difficile colitis. Fidaxomicin not available. Alcohol abuse: Patient is still drinking alcohol She does not want to go to any facility for detox Continue phenobarbital thiamine and folic acid, Monitor CIWA. Has received phenobarbital last night for withdrawal symptoms. Minimal alcohol withdrawal resolved. CIWA 0. Pancreatitis related to alcohol: Clear liquid diet. Follow-up lipase noted normal. Opioids for pain management Patient is getting lactulose UTI: On antibiotics, urine culture request admission Worsened anemia: Responded to RBC transfusion. Hemoglobin up to 8. Hemoccult has been requested. Change Protonix to IV twice daily in case of low upper GI bleed. Anemia and thrombocytopenia suspected related to underlying portal hypertension. Hypokalemia: Potassium 3.1. Potassium supplement given. Avoid DVT prophylaxis because of thrombocytopenia Patient is full code On clear liquid diet Discussed with case management. Attestations Medical Necessity Statement*: Continue admission for assessment and management of worsening hyperbilirubinemia, concern for possible choledocholithiasis pending transfer for additional assessment at [facility], alcohol related hepatitis, decompensated liver cirrhosis. Diagnoses Decompensated hepatic cirrhosis K72.90; K74.60 Acquired hyperbilirubinemia E80.6 Alcohol abuse F10.10 Cirrhosis of liver K74.60 Hypokalemia E87.6 Nicotine dependence F17.200 Thrombocytopenia D69.6 Anemia D64.9 Pseudomembranous colitis A04.72
[2022-08-31] MEDS: nystatin cream 30 gm 1 APPLIC TOPICAL (18:20)
[2022-08-31 19:22] LABS: INR 1.82 (0.8-1.2)
[2022-08-31 19:23] LABS: Fibrinogen 194 mg/dL (174-498); Partial Thromboplastin Time 45.6 SECONDS (23.9-36.7)
[2022-09-01] VITALS (16 sets, daily range): BP systolic 94–118; BP diastolic 63–84; PULSE 82–88; RESP 14–20; TEMP 36.2–36.6; O2SAT 95–98
[2022-09-01] MEDS: HYDROmorphone 1 mg/mL INJ 1 mL 0.2 MG IVP ×2 (02:30→06:43)
[2022-09-01] MEDS: piperacillin-tazobactam 3.375 GM in sodium chloride 0.9% (plus) 50 ML IV ×3 (05:50→22:28)
[2022-09-01] MEDS: pantoprazole 40 mg SDV IVP ×2 (06:42→17:58)
[2022-09-01 07:38] LABS: Basophils % 0.6 %; Eosinophils # 0.1 10^3/uL (0.0-0.8); Eosinophils % 2.6 %; Hematocrit 22.9 % (37.0-47.0); Hemoglobin 8.2 g/dL (11.5-15.3); Lymphocytes # 1.2 10^3/uL (0.8-4.8); Lymphocytes % 22.8 %; Mean Corpuscular HGB Conc 35.8 g/dL (30.0-36.0); Mean Corpuscular Hemoglobin 40.4 pg (28.0-34.0); Mean Corpuscular Volume 112.8 fl (81-99); Monocytes # 1.1 10^3/uL (0.2-0.9); Monocytes % 21.2 %; Neutrophils # 2.55 10^3/uL (1.8-7.7); Neutrophils % 50.4 %; Nucleated Red Blood Cells % 0.8 %; Platelet Count 115 10^3/cmm (130-400); Red Blood Count 2.03 10^6/uL (4.1-5.3); Red Cell Distribution Width 25.2 % (12.1-15.1); White Blood Count 5.1 10^3/uL (4.0-10.0)
[2022-09-01 08:07] LABS: Alanine Aminotransferase 36 U/L (0-33); Albumin Level 2.8 g/dL (3.5-5.2); Alkaline Phosphatase 130 U/L (35-105); Aspartate Amino Transferase 100 U/L (0-32); Blood Urea Nitrogen 6 mg/dL (6-20); Calcium 8.8 mg/dL (8.5-10.5); Carbon Dioxide 18 mmol/L (22-29); Chloride 102 mmol/L (98-107); Globulin 3.4 g/dL (1.3-4.6); Glomerular Filtration Rate 371.6 mL/min (90-130); Glucose 88 mg/dL (65-115); Osmolality Calculated 273 mOsm/kg (285-295); Sodium 133 mmol/L (136-145); Total Protein 6.2 g/dL (6.6-8.7)
[2022-09-01 08:12] LABS: Total Bilirubin 16.5 mg/dL (0.15-1.2)
[2022-09-01] MEDS: vancomycin 1,250 MG/250 ML PIGGYBACK 200 MG IV (08:42)
[2022-09-01] MEDS: potassium chloride ER 20 mEq Tablet 40 MEQ PO (08:46)
[2022-09-01] MEDS: lactulose oral liq 20 gm/30 mL UDC 30 GM PO ×3 (08:48→20:17)
[2022-09-01] MEDS: folic acid 1 mg Tablet PO (08:48)
[2022-09-01] MEDS: magnesium oxide 400 mg tablet PO ×2 (08:48→17:58)
[2022-09-01] MEDS: nystatin cream 30 gm 1 APPLIC TOPICAL ×2 (08:56→18:09)
[2022-09-01] MEDS: HYDROmorphone 1 mg/mL INJ 1 mL 0.3 MG IVP (09:44)
[2022-09-01] MEDS: HYDROmorphone 1 mg/mL INJ 1 mL 0.4 MG IVP ×4 (12:51→22:28)
--- NOTE | 2022-09-01 17:04 | CTR_ITS ---
PROCEDURE INFORMATION: Exam: CT Abdomen And Pelvis With Contrast Exam date and time: 09/02/2022 1:01 PM Age: 51 years old Clinical indication: Abdominal pain; Generalized; Prior surgery; Surgery date: 6+ months; Surgery type: Gb; Additional info: Follow up. Persistent abdominal pain, severe direct hyperbilirubinemia. Suspected c diff colitis. TECHNIQUE: Imaging protocol: Computed tomography of the abdomen and pelvis with contrast. Radiation optimization: All CT scans at this facility use at least one of these dose optimization techniques: automated exposure control; mA and/or kV adjustment per patient size (includes targeted exams where dose is matched to clinical indication); or iterative reconstruction. Contrast material: OMNI 350; Contrast volume: 100 ml; Contrast route: INTRAVENOUS (IV); REPORTING DATA: Count of CT and Cardiac NM exams in prior 12 months: This patient has received 14 known CTs and 0 known cardiac nuclear medicine studies in the 12 months prior to the current study. COMPARISON: 1. MR MRCP [id number] 08/28/2022 10:[address] abdomen pelvis w con* [id number] 08/27/2022 8:[address] abdomen pelvis w con* [id number] 06/11/2022 4:42 PM RADIATION DOSE METRICS: Total DLP (mGy-cm): 850 FINDINGS: Lungs: Mild bibasilar atelectasis and/or scarring as well as calcified granulomata. Mediastinal space: Small amount of fluid layering within the imaged lower esophagus. Liver: Enlarged liver measures 22.8 cm in craniocaudal dimension and shows diffuse hypoattenuation. Hepatic contour remains smooth and no focal lesions are visualized. Gallbladder and bile ducts: Prior cholecystectomy with stable mild dilatation of the common duct. No calcified choledocholithiasis. Pancreas: No ductal dilatation. Spleen: Enlarged spleen measures 14 cm in maximal dimension. Adrenal glands: Normal. No mass. Kidneys and ureters: Normal. No hydronephrosis. Stomach and bowel: No bowel dilatation to suggest obstruction. Anastomotic suture at the sigmoid colon. Proximal colonic wall thickening. Decreased distal colonic thickening. Fluid and air visualized throughout the colon. Appendix: Not confidently visualized. Intraperitoneal space: [id number] ascites, increased from 08/27/2022. No free air or rim enhancing fluid collection. Vasculature: Mild aortoiliac atherosclerotic calcification without abdominal aortic aneurysm. Lymph nodes: No enlarged lymph nodes. Urinary bladder: Urinary bladder is unremarkable. Reproductive: The uterus is surgically absent. Bones/joints: No acute fracture. Multilevel Schmorl's node changes. Mild levoconvex curvature of the lower thoracic spine. Soft tissues: Increased dependent edema along the lower back soft tissues. Calcified granuloma at the right low back. Thin linear hyperdensity at the midline anterior abdominal wall subcutaneous layer, stable. CT/CT abdomen pelvis w con* [id number] IMPRESSION: 1. Proximal colonic wall thickening may indicate infectious or inflammatory colitis. Decreased distal colonic thickening. 2. Increased ascites. 3. Hepatosplenomegaly and hepatic steatosis. 4. Stable post cholecystectomy changes and mild dilatation of the common duct.
--- NOTE | 2022-09-01 17:39 | PM.PN ---
Subjective Subjective: Pain in epigastric/RUQ area. No vomiting. Vitals/I&O/Wt Last Vital Signs Temp 97.3 F L 09/01/22 16:00 Pulse 85 09/01/22 16:00 Resp 16 09/01/22 16:06 BP 100/69 09/01/22 16:00 Pulse Ox 97 09/01/22 16:00 O2 Del Method Room Air 09/01/22 16:00 09/01/22 09/01/22 09/01/22 06:59 14:59 22:59 Intake Total 50 / 1120 660 / 660 Balance 50 / 1120 660 / 660 Physical Exam Const: COMMON NORMALS: patient oriented x3 and alert GENERAL APPEARANCE: cooperative ORIENTATION/CONSCIOUSNESS: Yes awake HENMT: COMMON NORMALS: oropharynx normal Eye: SCLERA: scleral abnormal Laterality of scleral abnormality: positive bilateral scleral icterus Neck/C-Spine: COMMON NORMALS: no JVD Resp: COMMON NORMALS: normal respiratory effort and clear to auscultation bilaterally AUSCULTATION: clear to auscultation bilaterally Cardio: COMMON NORMALS: no JVD, regular rhythm, S1 normal heart sound present, S2 normal heart sound present and No murmurs present (Cardio) RHYTHM: regular rhythm HEART SOUNDS: S1 normal heart sound present and S2 normal heart sound present GI: COMMON NORMALS: Normal to inspection, nondistended, normoactive bowel sounds present and Soft to palpation PALPATION: Yes Soft to palpation and Yes Tenderness to palpation present (GI) (Epigastric, RUQ) Extremity: COMMON NORMALS: no joint enlargement and no pedal edema Neuro: COMMON NORMALS: patient oriented x3 and moves all extremities SENSORIUM/ORIENTATION: Yes alert Skin: COMMON NORMALS: no rashes or lesions noted GENERAL SKIN EXAM: no rashes or lesions noted OTHER: Jaundice Data 09/01/22 07:31 09/01/22 07:31 A&P Assessment and plan (1) Decompensated hepatic cirrhosis: (2) Acquired hyperbilirubinemia: (3) Alcohol abuse: (4) Cirrhosis of liver: (5) Hypokalemia: (6) Nicotine dependence: (7) Thrombocytopenia: (8) Anemia: (9) Pseudomembranous colitis: Plan Hyperbilirubinemia: Discussed with her and her , as she is still having pain, still some worsening of bilirubin up to 16.5, otherwise afebrile, with a leukocytosis, however, with persistent symptoms we will repeat CT scan with contrast. Discussed risks, as she has had contrast study recently on 08/29. [facility] has been checking up on her, awaiting bed opening. As per recommendation by GI at [facility] recommended specifically [facility], as a second option possibly [facility]. Discussed with RN could try there in case they would like to. Discussed also with case management. Noted otherwise alk phos is down to 130, AST 100, ALT 36. Discussed with radiology at [facility] with regards to contrast CT scan, portal vein patent with good contrast, no evidence of portal vein thrombosis. Noted some portal hypertension and lower and upper abdominal varices. Still pending bed at [facility]. Concern for occult CBD stone/choledocholithiasis/CBD obstruction. Pending transfer for additional assessment and management at [facility]. Still unable to find out what procedure she was scheduled for by Dr. Steward in [place], however, requested with staff to keep trying. T. bili today noted worsened up to 15.4. Alk phos slightly better 132. AST slightly better 99, ALT 37. Empirically continue Zosyn, vancomycin. Continue oral vancomycin for C. difficile. Continue CLD. Poor appetite. Antiemetics as needed. Decompensated liver cirrhosis: At risk for life-threatening complications with alcohol induced hepatitis, decompensated cirrhosis. Platelets 115. Follow-up INR noted 1.82, fibrinogen WNL. D-dimer 6. Maintaining hemoglobin, 8.2. Repeat CBC. Possible alcoholic hepatitis. AST and ALT have been gradually improving. PT prolonged. Bilirubin elevated. Madrey discriminant function indicating poor prognosis. Continue lactulose and rifaximin. Continue to monitor mental status. Not enough fluid for paracentesis. Cannot exclude possibly of SBP continue empiric antibiotic coverage with Zosyn. Suspected C. difficile colitis. Concern for pseudomembranous colitis versus inflammatory colitis on imaging. Diarrhea. Abdominal pain. P.o. vancomycin. C. difficile noted positive. Toxin antigen negative, however, not great sensitivity, additionally with clinical and imaging findings of colitis discussed with patient and her . They are agreeable to continue vancomycin treatment for suspected C. difficile colitis. Fidaxomicin not available. Alcohol abuse: Patient is still drinking alcohol She does not want to go to any facility for detox Continue phenobarbital thiamine and folic acid, Monitor CIWA. Has received phenobarbital last night for withdrawal symptoms. Minimal alcohol withdrawal resolved. CIWA 0. Pancreatitis related to alcohol: Clear liquid diet. Follow-up lipase noted normal. Opioids for pain management Patient is getting lactulose UTI: On antibiotics, urine culture request admission Worsened anemia: Responded to RBC transfusion. Hemoglobin up to 8. Hemoccult has been requested. Change Protonix to IV twice daily in case of low upper GI bleed. Anemia and thrombocytopenia suspected related to underlying portal hypertension. Hypokalemia: Potassium 3.1. Potassium supplement given. Avoid DVT prophylaxis because of thrombocytopenia Patient is full code On clear liquid diet Discussed with case management. Attestations Medical Necessity Statement*: Continue admission for assessment and management of worsening hyperbilirubinemia, concern for possible choledocholithiasis pending transfer for additional assessment at [facility], alcohol related hepatitis, decompensated liver cirrhosis. Diagnoses Decompensated hepatic cirrhosis K72.90; K74.60 Acquired hyperbilirubinemia E80.6 Alcohol abuse F10.10 Cirrhosis of liver K74.60 Hypokalemia E87.6 Nicotine dependence F17.200 Thrombocytopenia D69.6 Anemia D64.9 Pseudomembranous colitis A04.72
[2022-09-01] MEDS: ondansetron 2 mg/ML SDV 2 mL 4 MG IVP (19:20)
[2022-09-02] VITALS (14 sets, daily range): BP systolic 93–106; BP diastolic 63–73; PULSE 82–90; RESP 16–18; TEMP 36.2–36.7; O2SAT 97–98
[2022-09-02] MEDS: vancomycin 1,250 MG/250 ML PIGGYBACK 200 MG IV ×2 (01:50→19:23)
[2022-09-02] MEDS: HYDROmorphone 1 mg/mL INJ 1 mL 0.4 MG IVP ×3 (02:33→09:06)
[2022-09-02 04:32] LABS: Basophils # 0.1 10^3/uL (0.0-0.1); Basophils % 0.9 %; Eosinophils # 0.1 10^3/uL (0.0-0.8); Eosinophils % 2.3 %; Hematocrit 22.5 % (37.0-47.0); Hemoglobin 7.9 g/dL (11.5-15.3); Lymphocytes # 1.3 10^3/uL (0.8-4.8); Lymphocytes % 22.7 %; Mean Corpuscular HGB Conc 35.1 g/dL (30.0-36.0); Mean Corpuscular Hemoglobin 40.3 pg (28.0-34.0); Mean Corpuscular Volume 114.8 fl (81-99); Mean Platelet Volume 11.3 fL (7.4-10.4); Monocytes # 1.2 10^3/uL (0.2-0.9); Monocytes % 22.2 %; Neutrophils # 2.84 10^3/uL (1.8-7.7); Neutrophils % 50.8 %; Nucleated Red Blood Cells % 0.5 %; Platelet Count 145 10^3/cmm (130-400); Red Blood Count 1.96 10^6/uL (4.1-5.3); Red Cell Distribution Width 25.6 % (12.1-15.1); White Blood Count 5.6 10^3/uL (4.0-10.0)
[2022-09-02 04:50] LABS: Alanine Aminotransferase 35 U/L (0-33); Albumin Level 2.6 g/dL (3.5-5.2); Alkaline Phosphatase 125 U/L (35-105); Anion Gap 13.1 (5-19); Aspartate Amino Transferase 98 U/L (0-32); Blood Urea Nitrogen 6 mg/dL (6-20); Calcium 8.8 mg/dL (8.5-10.5); Carbon Dioxide 20 mmol/L (22-29); Chloride 100 mmol/L (98-107); Globulin 3.6 g/dL (1.3-4.6); Glomerular Filtration Rate 232.7 mL/min (90-130); Glucose 83 mg/dL (65-115); Osmolality Calculated 267 mOsm/kg (285-295); Potassium 3.1 mmol/L (3.5-5.1); Sodium 130 mmol/L (136-145); Total Protein 6.2 g/dL (6.6-8.7)
[2022-09-02 04:51] LABS: Creatinine Clr Calc Pharmacy 214.2345
[2022-09-02 04:52] LABS: Total Bilirubin 17.9 mg/dL (0.15-1.2)
[2022-09-02 04:53] LABS: Magnesium 1.5 mg/dL (1.7-2.3)
[2022-09-02] MEDS: piperacillin-tazobactam 3.375 GM in sodium chloride 0.9% (plus) 50 ML IV ×3 (05:49→21:48)
[2022-09-02] MEDS: pantoprazole 40 mg SDV IVP ×2 (05:50→17:08)
[2022-09-02] MEDS: ondansetron 2 mg/ML SDV 2 mL 4 MG IVP (07:21)
[2022-09-02] MEDS: magnesium oxide 400 mg tablet PO ×2 (08:51→17:08)
[2022-09-02] MEDS: folic acid 1 mg Tablet PO (08:51)
[2022-09-02] MEDS: lactulose oral liq 20 gm/30 mL UDC 30 GM PO (08:52)
[2022-09-02] MEDS: nystatin cream 30 gm 1 APPLIC TOPICAL ×2 (09:12→17:08)
[2022-09-02] MEDS: magnesium sulfate premix 2 GM/50 ML PIGGYBACK IV (10:11)
[2022-09-02] MEDS: lidocaine 1% 5 ML in potassium chloride premix 100 ML 52.5 ML IV (10:27)
[2022-09-02] MEDS: HYDROmorphone 1 mg/mL INJ 1 mL 0.5 MG IVP ×4 (12:14→21:45)
[2022-09-02] MEDS: fluconazole 100 mg Tablet 200 MG PO (12:29)
[2022-09-02] MEDS: iohexol 350 mg/mL 500 mL Btl (per mL) IV (13:04)
[2022-09-02] MEDS: lactulose oral liq 20 gm/30 mL UDC PO ×2 (15:14→22:03)
--- NOTE | 2022-09-02 16:40 | P.PN_ITS ---
Subjective Subjective: Still having abdominal pain. Loose stools, but not quite profuse diarrhea. About 3 bowel movements yesterday. Genital burning reported by RN, she states having some burning with urination. Vitals/I&O/Wt Last Vital Signs Temp 97.2 F L 09/02/22 16:10 Pulse 82 09/02/22 16:10 Resp 18 09/02/22 15:14 BP 93/63 09/02/22 16:10 Pulse Ox 98 09/02/22 16:10 O2 Del Method Room Air 09/02/22 07:10 09/02/22 09/02/22 09/02/22 06:59 14:59 22:59 Intake Total 300 / 1610 805 / 805 Balance 300 / 1610 805 / 805 Physical Exam Const: COMMON NORMALS: patient oriented x3 and alert GENERAL APPEARANCE: cooperative ORIENTATION/CONSCIOUSNESS: Yes awake HENMT: COMMON NORMALS: oropharynx normal Eye: SCLERA: scleral abnormal Laterality of scleral abnormality: positive bilateral scleral icterus Neck/C-Spine: COMMON NORMALS: no JVD Resp: COMMON NORMALS: normal respiratory effort and clear to auscultation bilaterally AUSCULTATION: clear to auscultation bilaterally Cardio: COMMON NORMALS: no JVD, regular rhythm, S1 normal heart sound present, S2 normal heart sound present and No murmurs present (Cardio) RHYTHM: regular rhythm HEART SOUNDS: S1 normal heart sound present and S2 normal heart sound present GI: COMMON NORMALS: Normal to inspection, nondistended, normoactive bowel sounds present and Soft to palpation PALPATION: Yes Soft to palpation and Yes Tenderness to palpation present (GI) (Epigastric, RUQ) Extremity: COMMON NORMALS: no joint enlargement and no pedal edema Neuro: COMMON NORMALS: patient oriented x3 and moves all extremities SE NSORIUM/ORIENTATION: Yes alert Skin: COMMON NORMALS: no rashes or lesions noted GENERAL SKIN EXAM: no rashes or lesions noted OTHER: Jaundice Data 09/02/22 04:08 09/02/22 04:08 A&P Assessment and plan (1) Decompensated hepatic cirrhosis: (2) Acquired hyperbilirubinemia: (3) Alcohol abuse: (4) Cirrhosis of liver: (5) Hypokalemia: (6) Nicotine dependence: (7) Thrombocytopenia: (8) Anemia: (9) Pseudomembranous colitis: Plan Hyperbilirubinemia: Again noted worsened hyperbilirubinemia up to 17.9. Abdominal pain. Still some loose stools. She does not feel great. As discussed with her obtained contrast CT abdomen pelvis. CT with noted still proximal colonic wall thickening likely colitis, decreased distal colonic thickening. Noted increased ascites. Hepatosplenomegaly and hepatic steatosis. Stable postcholecystectomy changes and mild dilation of CBD. [facility] has been checking up on her daily, still no bed available. Discussed with her consideration of also checking with , she is agreeable. Discussed with team they are including bradder, hospitalist, accepted for waiting list. At this time remains afebrile. No leukocytosis. No suggestion of cholangitis at the current time. Continue arrangements for assessment by specialist. Discussed with her otherwise does appear to have some improvement in alk phos, AST, ALT. Continue empiric antibiotics for now. Discussed with radiology at [facility] with regards to contrast CT scan, portal vein patent with good contrast, no evidence of portal vein thrombosis. Noted some portal hypertension and lower and upper abdominal varices. Still pending bed at [facility]. Concern for occult CBD stone/choledocholithiasis/CBD obstruction. Pending transfer for additional assessment and management at [facility] or [facility]. Still unable to find out what procedure she was scheduled for by Dr. Steward in [place], however, requested with staff to keep trying. Empirically continue Zosyn, vancomycin. Continue oral vancomycin for C. difficile. Continue CLD. Poor appetite. Antiemetics as needed. Decompensated liver cirrhosis: Platelets continue to improve. INR was still elevated at 1.82 on 08/31. We will follow-up INR. Sodium down to 130. At risk for life-threatening complications with alcohol induced hepatitis, decompensated cirrhosis. Repeat chemistry requested. Platelets up to 145. Follow-up INR noted 1.82, fibrinogen WNL. D-dimer 6. Maintaining hemoglobin around 8 Repeat CBC. Additionally suspected alcoholic hepatitis, severe, with continuing to rise bilirubin,. AST and ALT have been gradually improving. PT prolonged. Bilirubin elevated. Madrey discriminant function indicating poor prognosis. Not a safe candidate for steroid. Continue lactulose and rifaximin. Continue to monitor mental status. Not enough fluid for paracentesis. Cannot exclude possibly of SBP continue empiric antibiotic coverage with Zosyn. Suspected C. difficile colitis. This appears to be improving. Still diarrhea. We did decrease lactulose to 20 mg 3 times daily. Continue oral vancomycin. Improvement noted on CT. Concern for pseudomembranous colitis versus inflammatory colitis on imaging. Diarrhea. Abdominal pain. P.o. vancomycin. C. difficile noted positive. Toxin antigen negative, however, not great sensitivity, additionally with clinical and imaging findings of colitis discussed with patient and her . They are agreeable to continue vancomycin treatment for suspected C. difficile colitis. Fidaxomicin not available. Hypomagnesemia: Magnesium 1.5. Given replacement. Follow-up magnesium level. Alcohol abuse: Patient is still drinking alcohol She does not want to go to any facility for detox Continue phenobarbital thiamine and folic acid, Monitor CIWA. Has received phenobarbital last night for withdrawal symptoms. Minimal alcohol withdrawal resolved. CIWA 0. Pancreatitis related to alcohol: Clear liquid diet. Follow-up lipase noted normal. Opioids for pain management Patient is getting lactulose UTI: On antibiotics, urine culture request admission Anemia: Anemia likely combination with mild GI bleed with gastritis, this seems to have responded to PPI. Although occult blood test is negative. Additionally possible mild hemolysis with hepatosplenomegaly as noted mildly low haptoglobin, some elevation of LDH. D-dimer abnormal, suspect more related to liver cirrhosis, haptoglobin may also be reduced with reduced synthetic function, bilirubin is mostly direct. Peripheral smear was requested, pending. Thrombocytopenia improving. Continue Protonix. Follow-up CBC. Hypokalemia: Potassium 3.1. Requested additional replacement p.o. Potassium supplement given. Avoid DVT prophylaxis because of thrombocytopenia Patient is full code On clear liquid diet Discussed with nursing. Discussed with case management in rounds. Attestations Medical Necessity Statement*: Continue admission for assessment and management of worsening hyperbilirubinemia, concern for possible choledocholithiasis pending transfer for additional assessment at tertiary care facility, alcohol related hepatitis, decompensated liver cirrhosis. and High Time for a total of 85 minutes, includes reviewing past or interval history, examining/interviewing patient, placing orders, counseling patient/family/other support, updating patient/family/other support, discussing plan of care with staff, communicating with other healthcare providers, documenting encounter and coordinating care Diagnoses Decompensated hepatic cirrhosis K72.90; K74.60 Acquired hyperbilirubinemia E80.6 Alcohol abuse F10.10 Cirrhosis of liver K74.60 Hypokalemia E87.6 Nicotine dependence F17.200 Thrombocytopenia D69.6 Anemia D64.9 Pseudomembranous colitis A04.72
[2022-09-03] VITALS (17 sets, daily range): BP systolic 84–104; BP diastolic 48–69; PULSE 78–89; RESP 14–19; TEMP 35.8–36.8; O2SAT 94–97
[2022-09-03] MEDS: HYDROmorphone 1 mg/mL INJ 1 mL 0.5 MG IVP ×5 (01:04→20:40)
[2022-09-03 05:17] LABS: Basophils # 0.1 10^3/uL (0.0-0.1); Eosinophils # 0.2 10^3/uL (0.0-0.8); Eosinophils % 2.7 %; Hematocrit 22.6 % (37.0-47.0); Hemoglobin 7.8 g/dL (11.5-15.3); Lymphocytes # 1.2 10^3/uL (0.8-4.8); Lymphocytes % 19.9 %; Mean Corpuscular HGB Conc 34.5 g/dL (30.0-36.0); Mean Corpuscular Hemoglobin 39.6 pg (28.0-34.0); Mean Corpuscular Volume 114.7 fl (81-99); Mean Platelet Volume 11.4 fL (7.4-10.4); Monocytes # 1.1 10^3/uL (0.2-0.9); Monocytes % 17.7 %; Neutrophils % 57.9 %; Nucleated Red Blood Cells % 0.3 %; Platelet Count 155 10^3/cmm (130-400); Red Blood Count 1.97 10^6/uL (4.1-5.3); Red Cell Distribution Width 25.2 % (12.1-15.1); White Blood Count 6.2 10^3/uL (4.0-10.0)
[2022-09-03 05:27] LABS: INR 2.11 (0.8-1.2)
[2022-09-03 05:36] LABS: Alanine Aminotransferase 36 U/L (0-33); Albumin Level 2.8 g/dL (3.5-5.2); Alkaline Phosphatase 132 U/L (35-105); Aspartate Amino Transferase 100 U/L (0-32); Blood Urea Nitrogen 6 mg/dL (6-20); Calcium 8.7 mg/dL (8.5-10.5); Carbon Dioxide 17 mmol/L (22-29); Chloride 104 mmol/L (98-107); Globulin 3.6 g/dL (1.3-4.6); Glomerular Filtration Rate 129.1 mL/min (90-130); Glucose 92 mg/dL (65-115); Magnesium 1.9 mg/dL (1.7-2.3); Osmolality Calculated 275 mOsm/kg (285-295); Sodium 134 mmol/L (136-145); Total Protein 6.4 g/dL (6.6-8.7)
[2022-09-03 05:38] LABS: Total Bilirubin 18.1 mg/dL (0.15-1.2)
[2022-09-03] MEDS: piperacillin-tazobactam 3.375 GM in sodium chloride 0.9% (plus) 50 ML IV ×3 (06:27→22:44)
[2022-09-03] MEDS: pantoprazole 40 mg SDV IVP ×2 (06:57→17:15)
[2022-09-03] MEDS: folic acid 1 mg Tablet PO (08:49)
[2022-09-03] MEDS: fluconazole 100 mg Tablet 200 MG PO (08:49)
[2022-09-03] MEDS: lactulose oral liq 20 gm/30 mL UDC PO ×3 (08:49→20:34)
[2022-09-03] MEDS: magnesium oxide 400 mg tablet PO ×2 (08:49→17:01)
[2022-09-03] MEDS: potassium chloride ER 20 mEq Tablet PO (10:25)
[2022-09-03] MEDS: vancomycin 1,250 MG/250 ML PIGGYBACK 200 MG IV (14:47)
[2022-09-03] MEDS: nystatin cream 30 gm 1 APPLIC TOPICAL (17:30)
--- NOTE | 2022-09-03 22:52 | P.PN_ITS ---
Subjective Subjective: She is feeling similarly, slightly less burning with urination. No vomiting. Vitals/I&O/Wt Last Vital Signs Temp 98.2 F 09/03/22 20:00 Pulse 86 09/03/22 20:05 Resp 18 09/03/22 20:40 BP 104/69 09/03/22 20:51 Pulse Ox 94 09/03/22 20:05 O2 Del Method Room Air 09/03/22 20:05 09/03/22 09/03/22 09/03/22 06:59 14:59 22:59 Intake Total 50 / 1455 583.458 / 706.081 9522.542 / 1602.000 Balance 50 / 1455 583.458 / 947.685 7755.542 / 1602.000 Physical Exam Narrative: Noted somewhat stronger, more energetic, sitting up in bed. More conversant. Const: COMMON NORMALS: patient oriented x3 and alert GENERAL APPEARANCE: cooperative ORIENTATION/CONSCIOUSNESS: Yes awake HENMT: COMMON NORMALS: oropharynx normal Eye: SCLERA: scleral abnormal Laterality of scleral abnormality: positive bilateral scleral icterus Neck/C-Spine: COMMON NORMALS: no JVD Resp: COMMON NORMALS: normal respiratory effort and clear to auscultation bila terally AUSCULTATION: clear to auscultation bilaterally Cardio: COMMON NORMALS: no JVD, regular rhythm, S1 normal heart sound present, S2 normal heart sound present and No murmurs present (Cardio) RHYTHM: regular rhythm HEART SOUNDS: S1 normal heart sound present and S2 normal heart sound present GI: COMMON NORMALS: Normal to inspection, nondistended, normoactive bowel sounds present and Soft to palpation PALPATION: Yes Soft to palpation and Yes Tenderness to palpation present (GI) (Epigastric, RUQ) Extremity: COMMON NORMALS: no joint enlargement and no pedal edema Neuro: COMMON NORMALS: patient oriented x3 and moves all extremities SENSORIUM/ORIENTATION: Yes alert Skin: COMMON NORMALS: no rashes or lesions noted GENERAL SKIN EXAM: no rashes or lesions noted OTHER: Jaundice Data 09/03/22 04:48 09/03/22 04:48 Micro: Microbiology 08/29/22 17:44 Blood Culture - Final Blood NO GROWTH AFTER 5 DAYS 08/29/22 17:20 Blood Culture - Final Blood NO GROWTH AFTER 5 DAYS A&P Assessment and plan (1) Decompensated hepatic cirrhosis: (2) Acquired hyperbilirubinemia: (3) Alcohol abuse: (4) Cirrhosis of liver: (5) Hypokalemia: (6) Nicotine dependence: (7) Thrombocytopenia: (8) Anemia: (9) Pseudomembranous colitis: Plan Hyperbilirubinemia: Persistent elevation. Jaundice. Bilirubin 18.1. Abdominal pain. Pending transfer to tertiary facility, on a waiting list to [facility], [facility]. So far no sign of cholangitis. Afebrile. No leukocytosis. Continue empiric antibiotics for now. CT with noted still proximal colonic wall thickening likely colitis, decreased distal colonic thickening. Noted increased ascites. Hepatosplenomegaly and hepatic steatosis. Stable postcholecystectomy changes and mild dilation of CBD. [facility] has been checking up on her daily, still no bed available. Continue arrangements for assessment by specialist. Discussed with case management. Portal vein patent with good contrast, no evidence of portal vein thrombosis. Noted some portal hypertension and lower and upper abdominal varices. Still pending bed at [facility]. Concern for occult CBD stone/choledocholithiasis/CBD obstruction. Pending transfer for additional assessment and management at [facility] or [facility]. Still unable to find out what procedure she was scheduled for by Dr. Steward in [place], however, requested with staff to keep trying. Empirically continue Zosyn, vancomycin. Continue oral vancomycin for C. difficile. Continue CLD. Poor appetite. Antiemetics as needed. So far no additional vomiting. Decompensated liver cirrhosis: Platelets continue to improve up to 155. INR elevated 2.11. We will follow-up INR. Sodium slightly better at 134. At risk for life-threatening complications with alcohol induced hepatitis, decompensated cirrhosis. Repeat chemistry requested. D-dimer 6. No PE on CTA. No DVT on duplex. Perhaps mild cysts with splenomegaly. Haptoglobin could be also low secondary to decreased synthetic function of the liver. Pending peripheral smear pending. Follow-up probability for TTP by plasmic score. Maintaining hemoglobin around 8. Repeat CBC. Noted increased ascites: Repeat requesting assessment for paracentesis for poss ible SBP. Additionally suspected alcoholic hepatitis, severe, with continuing to rise bilirubin,. AST and ALT have been gradually improving. PT prolonged. Bilirubin elevated. Madrey discriminant function indicating poor prognosis. Not a safe candidate for steroid. Continue lactulose and rifaximin. Continue to monitor mental status. Not enough fluid for paracentesis. Cannot exclude possibly of SBP continue empiric antibiotic coverage with Zosyn. Reevaluation for paracentesis with noted increased ascites on CT. Still requiring IV Dilaudid for pain. Suspected C. difficile colitis. This appears to be improving. Still diarrhea. We did decrease lactulose to 20 mg 3 times daily. Continue oral vancomycin. Improvement noted on CT. Concern for pseudomembranous colitis versus inflammatory colitis on imaging. Diarrhea. Abdominal pain. P.o. vancomycin. C. difficile noted positive. Toxin antigen negative, however, not great sensitivity, additionally with clinical and imaging findings of colitis discussed with patient and her . They are agreeable to continue vancomycin treatment for suspected C. difficile colitis. Fidaxomicin not available. Hypomagnesemia: Magnesium today noted 1.9. Repeat in the morning. Alcohol abuse: Patient is still drinking alcohol She does not want to go to any facility for detox Continue phenobarbital thiamine and folic acid, Monitor CIWA. Has received phenobarbital last night for withdrawal symptoms. Minimal alcohol withdrawal resolved. CIWA 0. Pancreatitis related to alcohol: Clear liquid diet. Follow-up lipase noted normal. Opioids for pain management Patient is getting lactulose UTI: Urine culture with Enterococcus. IV vancomycin. Anemia: Anemia likely combination with mild GI bleed with gastritis, this seems to have responded to PPI. Although occult blood test is negative. Additionally possible mild hemolysis with hepatosplenomegaly as noted mildly low haptoglobin, some elevation of LDH. D-dimer abnormal, suspect more related to liver cirrhosis, haptoglobin may also be reduced with reduced synthetic function, bilirubin is mostly direct. Peripheral smear was requested, pending. Thrombocytopenia improving. Continue Protonix. Follow-up CBC. Hypokalemia: Potassium 3. Requested additional replacement p.o. given. Repeat chemistry. Avoid DVT prophylaxis because of thrombocytopenia Patient is full code On clear liquid diet Attestations Medical Necessity Statement*: Continue admission for assessment and management of worsening hyperbilirubinemia, concern for possible choledocholithiasis pending transfer for additional assessment at tertiary care facility, alcohol related hepatitis, decompensated liver cirrhosis. Diagnoses Decompensated hepatic cirrhosis K72.90; K74.60 Acquired hyperbilirubinemia E80.6 Alcohol abuse F10.10 Cirrhosis of liver K74.60 Hypokalemia E87.6 Nicotine dependence F17.200 Thrombocytopenia D69.6 Anemia D64.9 Pseudomembranous colitis A04.72
[2022-09-04] VITALS (15 sets, daily range): BP systolic 88–105; BP diastolic 60–68; PULSE 76–85; RESP 15–19; TEMP 35.9–36.6; O2SAT 95–97
[2022-09-04] MEDS: HYDROmorphone 1 mg/mL INJ 1 mL 0.5 MG IVP ×6 (02:28→22:19)
[2022-09-04] MEDS: pantoprazole 40 mg SDV IVP ×2 (06:00→17:23)
[2022-09-04] MEDS: piperacillin-tazobactam 3.375 GM in sodium chloride 0.9% (plus) 50 ML IV ×2 (06:01→13:53)
[2022-09-04 07:32] LABS: Basophils # 0.1 10^3/uL (0.0-0.1); Basophils % 0.8 %; Eosinophils # 0.1 10^3/uL (0.0-0.8); Eosinophils % 1.6 %; Hematocrit 22.4 % (37.0-47.0); Hemoglobin 7.9 g/dL (11.5-15.3); Lymphocytes % 15.7 %; Mean Corpuscular HGB Conc 35.3 g/dL (30.0-36.0); Mean Corpuscular Hemoglobin 40.5 pg (28.0-34.0); Mean Corpuscular Volume 114.9 fl (81-99); Mean Platelet Volume 11.2 fL (7.4-10.4); Monocytes # 0.9 10^3/uL (0.2-0.9); Monocytes % 13.8 %; Neutrophils # 4.17 10^3/uL (1.8-7.7); Neutrophils % 67.8 %; Nucleated Red Blood Cells % 0.3 %; Platelet Count 166 10^3/cmm (130-400); Red Blood Count 1.95 10^6/uL (4.1-5.3); Red Cell Distribution Width 24.9 % (12.1-15.1); White Blood Count 6.2 10^3/uL (4.0-10.0)
[2022-09-04 07:56] LABS: Alanine Aminotransferase 36 U/L (0-33); Albumin Level 2.9 g/dL (3.5-5.2); Alkaline Phosphatase 122 U/L (35-105); Anion Gap 14.1 (5-19); Aspartate Amino Transferase 101 U/L (0-32); Blood Urea Nitrogen 7 mg/dL (6-20); Calcium 8.7 mg/dL (8.5-10.5); Carbon Dioxide 17 mmol/L (22-29); Chloride 103 mmol/L (98-107); Globulin 3.6 g/dL (1.3-4.6); Glomerular Filtration Rate 232.7 mL/min (90-130); Glucose 83 mg/dL (65-115); Osmolality Calculated 269 mOsm/kg (285-295); Potassium 3.1 mmol/L (3.5-5.1); Sodium 131 mmol/L (136-145); Total Protein 6.5 g/dL (6.6-8.7)
[2022-09-04 08:01] LABS: Vancomycin Trough 25.3 ug/mL (10-15)
[2022-09-04 08:15] LABS: Creatinine Clr Calc Pharmacy 214.2345
[2022-09-04] MEDS: nystatin cream 30 gm 1 APPLIC TOPICAL ×2 (08:37→17:34)
[2022-09-04] MEDS: magnesium oxide 400 mg tablet PO ×2 (08:37→17:33)
[2022-09-04] MEDS: fluconazole 100 mg Tablet 200 MG PO (08:37)
[2022-09-04] MEDS: folic acid 1 mg Tablet PO (08:37)
--- NOTE | 2022-09-04 09:39 | PC.NURSE ---
[facility] Transfer Center: [facility] [phone] [facility] Transfer Center: [place] [phone]
[2022-09-04] MEDS: pred sod phos 15 mg/5 mL Soln 30mL Btl PO ×2 (11:45→17:34)
--- NOTE | 2022-09-04 14:45 | P.PN_ITS ---
Subjective Subjective: Patient is experiencing right upper quadrant pain Stable hemoglobin Stable thrombocytopenia and white count Case presented to [facility] public relations supervisor Patient is accepted however we are waiting for bed number Bilirubin is 19 Madrey score 74 Added prednisolone 15 mg twice daily Vitals/I&O/Wt Last Vital Signs Temp 97.3 F L 09/04/22 11:52 Pulse 80 09/04/22 11:52 Resp 16 09/04/22 11:52 BP 98/66 09/04/22 11:52 Pulse Ox 97 09/04/22 11:52 O2 Del Method Room Air 09/04/22 11:52 09/03/22 09/04/22 09/04/22 22:59 06:59 14:59 Intake Total 1018.542 / 1602.000 50 / 1652.000 530 / 530 Balance 1018.542 / 1602.000 50 / 1652.000 530 / 530 Physical Exam Narrative: Scleral icterus Pruritic Patient is icteric Whole skin is yellow Abdomen distended, right upper quadrant pain Awake and alert Asterixis negative GCS 15 Currently on room air is at the bedside Data 09/04/22 07:20 09/04/22 07:20 Micro: Microbiology 08/29/22 17:44 Blood Culture - Final Blood NO GROWTH AFTER 5 DAYS 08/29/22 17:20 Blood Culture - Final Blood NO GROWTH AFTER 5 DAYS A&P Assessment and plan (1) Cirrhosis of liver: (2) Alcohol abuse: (3) Pseudomembranous colitis: (4) Alcoholic hepatitis: (5) Decompensated hepatic cirrhosis: (6) Pyelonephritis: (7) Pancreatitis: (8) Anemia: Plan Alcoholic hepatitis End-stage liver disease Madrey score 74 Worsening jaundice No sign of cholangitis Poor prognosis She has been accepted at [facility] awaiting bed number Case was presented to [facility] public relations supervisor today as well Added prednisolone 50 mg twice daily p.o. Pseudomembranous colitis discontinue Zosyn and IV vancomycin, C. difficile PCR positive Continue p.o. vancomycin UTI with Enterococcus faecalis sensitive to nitrofurantoin Discontinue IV vancomycin and use nitrofurantoin Awaiting placement Full code Guarded prognosis Alcohol abuse No active withdrawal Pancreatitis: No active nausea vomiting complaining abdominal pain Avoiding DVT prophylaxis because of thrombocytopenia however platelet count has been 166 I will hold and use heparin is at the bedside, updated nurse, charge nurse, spoke with the public relations supervisor at [facility] Attestations Medical Necessity Statement*: Awaiting placement Diagnoses Cirrhosis of liver K74.60 Alcohol abuse F10.10 Pseudomembranous colitis A04.72 Alcoholic hepatitis K70.10 Decompensated hepatic cirrhosis K72.90; K74.60 Pyelonephritis N12 Pancreatitis K85.90 Anemia D64.9
[2022-09-04] MEDS: heparin 5,000 unit/mL INJ 1 mL 5000 UNIT SUBCUT (17:33)
[2022-09-04] MEDS: nitrofurantoin SR (BID) 100 mg Capsule PO (17:33)
[2022-09-04] MEDS: ondansetron 2 mg/ML SDV 2 mL 4 MG IVP (19:26)
[2022-09-04] MEDS: lactulose oral liq 20 gm/30 mL UDC PO (21:54)
--- NOTE | 2022-09-04 22:53 | US_ITS ---
WS: [id number] Abdominal ultrasound, limited. History: Evaluate for ascites. Comparison: None. All 4 quadrants are imaged by ultrasound to evaluate for ascites. There is no peritoneal fluid identi fied. US/US abdomen lmt fluid [id number] IMPRESSION: No peritoneal ascites.
[2022-09-05] VITALS (15 sets, daily range): BP systolic 90–114; BP diastolic 66–77; PULSE 70–81; RESP 14–20; TEMP 36.2–37; O2SAT 94–97
[2022-09-05] MEDS: HYDROmorphone 1 mg/mL INJ 1 mL 0.5 MG IVP ×6 (01:38→20:22)
[2022-09-05] MEDS: heparin 5,000 unit/mL INJ 1 mL 5000 UNIT SUBCUT (03:52)
[2022-09-05] MEDS: pantoprazole 40 mg SDV IVP ×2 (04:57→17:01)
[2022-09-05 07:36] LABS: Basophils % 0.3 %; Hematocrit 22.1 % (37.0-47.0); Hemoglobin 7.5 g/dL (11.5-15.3); Lymphocytes # 0.7 10^3/uL (0.8-4.8); Lymphocytes % 8.6 %; Mean Corpuscular HGB Conc 33.9 g/dL (30.0-36.0); Mean Corpuscular Hemoglobin 39.3 pg (28.0-34.0); Mean Corpuscular Volume 115.7 fl (81-99); Mean Platelet Volume 11.4 fL (7.4-10.4); Monocytes # 0.6 10^3/uL (0.2-0.9); Monocytes % 7.4 %; Neutrophils # 6.26 10^3/uL (1.8-7.7); Neutrophils % 82.8 %; Nucleated Red Blood Cells % 0 %; Platelet Count 180 10^3/cmm (130-400); Red Blood Count 1.91 10^6/uL (4.1-5.3); Red Cell Distribution Width 24.4 % (12.1-15.1); White Blood Count 7.6 10^3/uL (4.0-10.0)
[2022-09-05 08:05] LABS: Alanine Aminotransferase 32 U/L (0-33); Albumin Level 2.7 g/dL (3.5-5.2); Alkaline Phosphatase 116 U/L (35-105); Anion Gap 16.2 (5-19); Aspartate Amino Transferase 86 U/L (0-32); Blood Urea Nitrogen 8 mg/dL (6-20); Calcium 8.4 mg/dL (8.5-10.5); Carbon Dioxide 15 mmol/L (22-29); Chloride 105 mmol/L (98-107); Globulin 3.4 g/dL (1.3-4.6); Glomerular Filtration Rate 371.6 mL/min (90-130); Glucose 127 mg/dL (65-115); Osmolality Calculated 276 mOsm/kg (285-295); Potassium 3.2 mmol/L (3.5-5.1); Sodium 133 mmol/L (136-145); Total Protein 6.1 g/dL (6.6-8.7)
[2022-09-05 08:29] LABS: Total Bilirubin 17.5 mg/dL (0.15-1.2)
[2022-09-05] MEDS: pred sod phos 15 mg/5 mL Soln 30mL Btl PO ×2 (08:49→18:03)
[2022-09-05] MEDS: magnesium oxide 400 mg tablet PO ×2 (08:49→18:03)
[2022-09-05] MEDS: nystatin cream 30 gm 1 APPLIC TOPICAL (08:49)
[2022-09-05] MEDS: folic acid 1 mg Tablet PO (08:49)
[2022-09-05] MEDS: nitrofurantoin SR (BID) 100 mg Capsule PO ×2 (08:49→18:03)
--- NOTE | 2022-09-05 13:14 | PM.PN ---
Subjective Subjective: Drop in hemoglobin noted With initiation of steroids I am seeing downtrend of bilirubin Patient is still waiting for a bed She has been accepted at [facility] Currently being treated for alcoholic hepatitis, no overnight events Pain has not worsened around right upper quadrant or nausea or vomiting Held heparin Vitals/I&O/Wt Last Vital Signs Temp 97.3 F L 09/05/22 08:00 Pulse 81 09/05/22 08:00 Resp 20 H 09/05/22 13:11 BP 103/69 09/05/22 08:00 Pulse Ox 97 09/05/22 08:00 O2 Del Method Room Air 09/05/22 08:00 09/04/22 09/05/22 09/05/22 22:59 06:59 14:59 Intake Total 375 / 905 240 / 1145 240 / 240 Balance 375 / 905 240 / 1145 240 / 240 Physical Exam Narrative: Patient is laying supine Abdominal distended Right upper quadrant pain Patient has icteric appearance Scleral icterus No active emesis S1, S2 Ascites Awake and alert Asterixis negative GCS 15 Nonfocal neuro exam Data 09/05/22 07:01 09/05/22 07:01 A&P Assessment and plan (1) Alcoholic hepatitis: (2) Pseudomembranous colitis: (3) Decompensated hepatic cirrhosis: (4) Acquired hyperbilirubinemia: (5) Alcohol abuse: (6) Cirrhosis of liver: (7) Hypokalemia: (8) Pyelonephritis: (9) Pancreatitis: (10) Anemia: Plan Alcoholic hepatitis Patient is currently on prednisolone 15 mg twice daily regimen Bilirubin slightly trending down Her Madrey's score is above 70 with guarded prognosis Pancreatitis: Symptoms resolving, advance diet to cardiac today Pseudomembranous colitis, currently she is on p.o. vancomycin UTI: There was concern for pyelonephritis Patient has remained afebrile without leukocytosis I have changed her antibiotics to nitrofurantoin on 09/04 Awaiting bed from [facility] Hold heparin, drop in hemoglobin noted We will transfuse if hemoglobin less than 7 Patient is having bowel movement twice to 3 times a day, Attestations Medical Necessity Statement*: Awaiting placement to tertiary center Diagnoses Alcoholic hepatitis K70.10 Pseudomembranous colitis A04.72 Decompensated hepatic cirrhosis K72.90; K74.60 Acquired hyperbilirubinemia E80.6 Alcohol abuse F10.10 Cirrhosis of liver K74.60 Hypokalemia E87.6 Pyelonephritis N12 Pancreatitis K85.90 Anemia D64.9
[2022-09-05] MEDS: nicotine 14 mg Patch 1 PATCH TRANSDERMA (18:03)
[2022-09-05] MEDS: lactulose oral liq 20 gm/30 mL UDC PO (21:23)
[2022-09-06] VITALS (17 sets, daily range): BP systolic 100–128; BP diastolic 67–84; PULSE 62–80; RESP 14–20; TEMP 36.2–37; O2SAT 94–98
[2022-09-06] MEDS: HYDROmorphone 1 mg/mL INJ 1 mL 0.5 MG IVP ×7 (00:23→21:54)
[2022-09-06] MEDS: pantoprazole 40 mg SDV IVP ×2 (06:19→18:40)
[2022-09-06 07:08] LABS: Basophils % 0.3 %; Lymphocytes # 0.7 10^3/uL (0.8-4.8); Lymphocytes % 6.4 %; Mean Corpuscular HGB Conc 37.2 g/dL (30.0-36.0); Mean Corpuscular Hemoglobin 38.8 pg (28.0-34.0); Mean Corpuscular Volume 104.2 fl (81-99); Mean Platelet Volume 11.3 fL (7.4-10.4); Monocytes # 0.9 10^3/uL (0.2-0.9); Monocytes % 8.4 %; Neutrophils # 8.67 10^3/uL (1.8-7.7); Neutrophils % 83.8 %; Nucleated Red Blood Cells % 0 %; Platelet Count 206 10^3/cmm (130-400); Red Cell Distribution Width 22.9 % (12.1-15.1); White Blood Count 10.3 10^3/uL (4.0-10.0)
[2022-09-06 07:22] LABS: Hemoglobin 9.3 g/dL (11.5-15.3)
[2022-09-06 07:26] LABS: Alanine Aminotransferase 35 U/L (0-33); Alkaline Phosphatase 129 U/L (35-105); Anion Gap 14.8 (5-19); Aspartate Amino Transferase 85 U/L (0-32); Blood Urea Nitrogen 9 mg/dL (6-20); Carbon Dioxide 17 mmol/L (22-29); Chloride 107 mmol/L (98-107); Globulin 3.9 g/dL (1.3-4.6); Glomerular Filtration Rate 129.1 mL/min (90-130); Glucose 108 mg/dL (65-115); Osmolality Calculated 279 mOsm/kg (285-295); Potassium 3.8 mmol/L (3.5-5.1); Sodium 135 mmol/L (136-145); Total Protein 6.9 g/dL (6.6-8.7)
[2022-09-06 07:36] LABS: Total Bilirubin 17.9 mg/dL (0.15-1.2)
[2022-09-06] MEDS: nicotine 14 mg Patch 1 PATCH TRANSDERMA (09:45)
[2022-09-06] MEDS: folic acid 1 mg Tablet PO (09:45)
[2022-09-06] MEDS: lactulose oral liq 20 gm/30 mL UDC PO ×2 (09:45→14:15)
[2022-09-06] MEDS: magnesium oxide 400 mg tablet PO (09:45)
[2022-09-06] MEDS: pred sod phos 15 mg/5 mL Soln 30mL Btl PO ×2 (09:55→18:40)
[2022-09-06] MEDS: nitrofurantoin SR (BID) 100 mg Capsule PO (09:55)
[2022-09-06] MEDS: nystatin cream 30 gm 1 APPLIC TOPICAL ×2 (09:55→18:40)
--- NOTE | 2022-09-06 10:10 | PC.NURSE ---
Patient threw up morning meds after administration.
--- NOTE | 2022-09-06 11:37 | PM.PN ---
Subjective Subjective: Postacute unit PRBC hemoglobin 9.3 Hemodynamically stable Bilirubin still around 17 Goals of care discussed with the patient, poor prognosis discussed This case was discussed with operating room scheduler Dr. Miguel [facility], today, I am discussing her case every 48 hours because she is on their waiting list Vitals/I&O/Wt Last Vital Signs Temp 97.9 F 09/06/22 08:09 Pulse 72 09/06/22 08:09 Resp 16 09/06/22 08:15 BP 117/78 09/06/22 08:09 Pulse Ox 96 09/06/22 08:09 O2 Del Method Room Air 09/06/22 08:09 09/05/22 09/06/22 09/06/22 22:59 06:59 14:59 Intake Total 1080 / 1800 250 / 2050 480 / 480 Balance 1080 / 1800 250 / 2050 480 / 480 Physical Exam Narrative: Severe jaundice No asterixis Awake and alert GCS 15 Nonfocal neuro exam Abdomen distended tender right upper quadrant Nonfocal neuro exam S1, S2 Currently on room air Emotionally labile Data 09/06/22 06:45 09/06/22 06:45 A&P Assessment and plan (1) Pseudomembranous colitis: (2) Decompensated hepatic cirrhosis: (3) Alcoholic hepatitis: (4) Alcohol abuse: (5) Cirrhosis of liver: (6) Nicotine dependence: (7) Pancreatitis: (8) Depression: Plan Patient is awaiting placement She he has been accepted at [facility] and [place] They still do not have any beds I am continuing prednisolone 50 mg twice daily for alcoholic hepatitis Acute on chronic macrocytic anemia status post 2 unit PRBC hemoglobin 9.3 Hemoglobin stable, no active bleed Pseudomembranous colitis will finish 10 days of p.o. vancomycin For her UTI currently she is on nitrofurantoin Not a candidate for DVT prophylaxis Full code SCDs for DVT prophylaxis for now Attestations Medical Necessity Statement*: Awaiting placement Diagnoses Pseudomembranous colitis A04.72 Decompensated hepatic cirrhosis K72.90; K74.60 Alcoholic hepatitis K70.10 Alcohol abuse F10.10 Cirrhosis of liver K74.60 Nicotine dependence F17.200 Pancreatitis K85.90 Depression F32.9
[2022-09-06] MEDS: ondansetron 2 mg/ML SDV 2 mL 4 MG IVP (15:37)
[2022-09-07] VITALS (9 sets, daily range): BP systolic 107–117; BP diastolic 64–82; PULSE 69–787; RESP 15–18; TEMP 36.4–36.9; O2SAT 95–97
[2022-09-07] MEDS: HYDROmorphone 1 mg/mL INJ 1 mL 0.5 MG IVP ×6 (02:05→18:55)
[2022-09-07 02:26] LABS: Fibrinogen Degradation Product 10 mcg/mL (LESS THAN 5)
[2022-09-07 02:26] LABS: Fibrinogen Degradation Product 5 mcg/mL (LESS THAN 5)
[2022-09-07] MEDS: pantoprazole 40 mg SDV IVP (05:03)
[2022-09-07] MEDS: ondansetron 2 mg/ML SDV 2 mL 4 MG IVP ×3 (05:09→18:55)
[2022-09-07 06:03] LABS: Alanine Aminotransferase 35 U/L (0-33); Albumin Level 2.8 g/dL (3.5-5.2); Alkaline Phosphatase 127 U/L (35-105); Anion Gap 14.9 (5-19); Aspartate Amino Transferase 83 U/L (0-32); Blood Urea Nitrogen 12 mg/dL (6-20); Calcium 8.8 mg/dL (8.5-10.5); Carbon Dioxide 18 mmol/L (22-29); Chloride 106 mmol/L (98-107); Globulin 3.7 g/dL (1.3-4.6); Glomerular Filtration Rate 129.1 mL/min (90-130); Glucose 107 mg/dL (65-115); Osmolality Calculated 280 mOsm/kg (285-295); Potassium 3.9 mmol/L (3.5-5.1); Sodium 135 mmol/L (136-145); Total Protein 6.5 g/dL (6.6-8.7)
[2022-09-07 06:12] LABS: Total Bilirubin 15.8 mg/dL (0.15-1.2)
[2022-09-07] MEDS: nicotine 14 mg Patch 1 PATCH TRANSDERMA (09:02)
[2022-09-07] MEDS: nitrofurantoin SR (BID) 100 mg Capsule PO (09:06)
--- NOTE | 2022-09-07 11:52 | PM.PN ---
Subjective Subjective: Bilirubin is 15 Patient is emotionally labile Willing to stay for her transfer at tertiary center No overnight events Stools are semisolid Patient received p.o. vancomycin for 10 days Vitals/I&O/Wt Last Vital Signs Temp 97.6 F 09/07/22 03:43 Pulse 77 09/07/22 08:58 Resp 16 09/07/22 08:58 BP 117/82 09/07/22 03:43 Pulse Ox 96 09/07/22 08:58 O2 Del Method Room Air 09/07/22 08:58 09/06/22 09/07/22 09/07/22 22:59 06:59 14:59 Intake Total 480 / 1440 Balance 480 / 1440 Physical Exam Narrative: This patient is icterus Pruritus improving Abdominal pain still at the same level No new focal deficit Currently on room air Emotional labile S1, S2 GCS 15 No audible stridor or wheezing Data 09/06/22 06:45 09/07/22 05:09 A&P Assessment and plan (1) Alcoholic hepatitis: (2) Pseudomembranous colitis: (3) Decompensated hepatic cirrhosis: (4) Acquired hyperbilirubinemia: (5) Alcohol abuse: (6) Pancreatitis: (7) Depression: (8) Anemia: (9) Diarrhea: Plan Alcoholic hepatitis showing good response to steroids Bilirubin responding well to steroids Patient is willing to go and wait for her acceptance at tertiary center at [facility] I would not change any of her medications today Continue lactulose Discontinue p.o. vancomycin Continue antibiotics for UTI Attestations Medical Necessity Statement*: Awaiting placement Diagnoses Alcoholic hepatitis K70.10 Pseudomembranous colitis A04.72 Decompensated hepatic cirrhosis K72.90; K74.60 Acquired hyperbilirubinemia E80.6 Alcohol abuse F10.10 Pancreatitis K85.90 Depression F32.9 Anemia D64.9 Diarrhea R19.7
--- NOTE | 2022-09-07 12:09 | P.TS_ITS ---
Transfer Summary Providers Date of Admission: 08/27/22 15:52 Date of Discharge/Transfer: 09/07/22 Attending Provider at Admission: Kathie Pulido MD Attending Provider at Transfer: Kathie Pulido MD Primary Care Provider: Aditya Degroot DO Transfer Plans: Anticipated date of transfer: 09/07/22 . Diagnoses at Discharge Discharge Diagnosis (1) Cirrhosis of liver: Status: Acute (2) Alcohol abuse: Status: Acute (3) Pseudomembranous colitis: Status: Acute (4) Alcoholic hepatitis: Status: Acute (5) Decompensated hepatic cirrhosis: Status: Acute (6) Pyelonephritis: Status: Acute (7) Pancreatitis: Status: Acute (8) Anemia: Status: Acute Reason for Visit Reason for Visit n/v, abd pain Hospital Course Hospital Course Pleasant 51-year-old lady with history of alcoholic cirrhosis, smoking, alcoholic gastritis, last EGD back in April 2022 with erosive gastritis, no varices, presented to hospital on 08/26 with symptoms of abdominal pain, nausea, vomiting, and presentation with low-grade fever 100.4, without leukocytosis. With microcytic anemia, hemoglobin 8.7, worse thrombocytopenia than usual, platelets 35,000, previously 50,000 in May, 121 in April. Presentation with liver abnormality, T. bili 7.2, alk phos 242. AST 151. ALT 36. Normal lipase. CT abdomen pelvis with appendicolith, marked mucosal edema/wall thickening with adjacent inflammatory change suggestive of infectious or pseudomembranous colitis. Severe fatty liver infiltration. Small amount of abdominal and pelvic ascites. Pancreatic inflammation. Pancreatitis not excluded. Possible hyperdensity in the distal common bile duct. Stone not excluded. She was started empirically on antibiotic coverage with Zosyn, oral vancomycin, pain and nausea control. Without improvement in symptoms on 08/28, with worsening T. bili up to 10.6 assessed by MRCP, with noted prior cholecystectomy, limited visualization of common bile duct due to susceptibility artifact from cholecystectomy clips. Some motion artifact as well. No evidence of choledocholithiasis considering limitations. Small mount of prehepatic ascites. Partially visualized colitis transverse colon as per CT. With consideration of possible SBP, continue antibiotic, assessed by ultrasound, but not enough fluid for paracentesis. Consideration of alcohol use gastritis, started on PPI IV twice daily. Consideration of alcohol hepatitis, Madrey discriminant elevated, her, not found to be safe candidate at that time for steroids. With consideration also possible UTI with abnormal UA on presentation. Urine culture pending. Continued with supportive care. Today with persistent symptoms, worsening bilirubin up to 11.6. This morning additionally with anemia. Hemoglobin 7.5 on 08/27, 7 on 08/28. This morning 6.4. RBC transfusion was requested overnight. Requested additionally haptoglobin which came back as low at 23, LDH 411. Peripheral smear requested, not yet back. DIC profile requested, INR is 1.7, last prior to that back in January 2020 was 1.19. No additional abnormalities D-dimer 5.8. Some degree of hemolysis, with mild splenomegaly, cannot exclude also discussed with them some low-grade DIC, although fibrinogen is noted normal. Venous duplex obtained, without evidence of DVT. Otherwise without symptoms of PE, no pleuritic pain, saturating 97% on room air. Suspected more likely secondary to liver disease as otherwise symptoms not suggestive of PE. CTA is requested. Additional assessment or fractionated bilirubin today revealed bilirubin that was higher still this afternoon at 14.6. Predominantly direct bilirubin 12.8. Given continually worsening bilirubin, lack of improvement in symptoms, concern is whether or not there is CBD occlusion, although at the moment does not appear to have cholangitis. Additionally concern for possibility of decompensated liver cirrhosis. Transfer sought initially with [facility] with concern for choledocholithiasis, consideration of ERCP, however, recommendation for higher level of care with [facility] or [facility] for additional assessment by hepatology. Per discussion with specialist at [facility] consideration is that her findings may be more likely secondary to severe alcohol induced hepatitis. Kindly accepted for transfer and further consideration. Patient and understand this, and that hopefully there may not be CBD occlusion and may not require ERCP, and hopefully with supportive care alcohol hepatitis will turn around. She is still at high risk of additional complications. As with consideration of possibility of superimposed viral infection requested acute hepatitis panel which is pending. Additionally adding vancomycin is noted to have enterococcal UTI with more than 100,000 CFU. Additionally just not getting results on C. difficile study with C. difficile PCR positive for C. difficile toxin B gene. Although reflex antigen result states Toxin A and/or B not present. Confirming result with micro lab. Continue PO vancomycin for now as clinically there is concern for C. difficile. Fidoxamicin not available. Occult blood negative. Stool bacterial and parasite panels are negative. transfer to [facility] TS Data Studies Completed and Pending Pending at discharge Category Date Time Status Albumin Body Fluid Routine Lab 09/03/22 22:53 Ordered Anaerobic Culture Routine Lab 09/03/22 22:53 Ordered Body Fluid Analysis Routine Lab 09/03/22 22:53 Ordered Body Fluid Culture & GS Routine Lab 09/03/22 22:53 Ordered Complete Blood Count w/Auto AM LABS Lab 09/05/22 04:00 Ordered Comprehensive Metabolic Panel AM LABS Lab 09/05/22 04:00 Ordered Cyto Order Verification Routine Lab 09/03/22 22:53 Ordered Fibrinogen Degradation Product Routine Lab 08/28/22 05:15 Received Fibrinogen Degradation Product Routine Lab 08/29/22 12:26 Received Mycobacteria, Culture w/Fluor Routine Lab 09/03/22 22:53 Ordered Labs from last 24 hours 09/04/22 09/04/22 09/04/22 07:20 07:20 07:20 WBC 6.2 RBC 1.95 L Hgb 7.9 L Hct 22.4 L MCV 114.9 H MCH 40.5 H MCHC 35.3 RDW 24.9 H Plt Count 166 MPV 11.2 H Neut % (Auto) 67.8 Lymph % (Auto) 15.7 Collier % (Auto) 13.8 Eos % (Auto) 1.6 Baso % (Auto) 0.8 Neut # (Auto) 4.17 Lymph # (Auto) 1.0 Collier # (Auto) 0.9 Eos # (Auto) 0.1 Baso # (Auto) 0.1 Nucleated RBC % (auto) 0.3 Nucleated RBCs # 0.0 Sodium 131 L Potassium 3.1 L Chloride 103 Carbon Dioxide 17 L Anion Gap 14.1 BUN 7 Creatinine 0.3 L GFR Calculation 232.7 H Glucose 83 Calculated Osmolality 269 L Calcium 8.7 Magnesium 2.0 Total Bilirubin 19.0 H* AST 101 H ALT 36 H Alkaline Phosphatase 122 H Total Protein 6.5 L Albumin 2.9 L Globulin 3.6 Vancomycin Trough 09/04/22 07:20 WBC RBC Hgb Hct MCV MCH MCHC RDW Plt Count MPV Neut % (Auto) Lymph % (Auto) Collier % (Auto) Eos % (Auto) Baso % (Auto) Neut # (Auto) Lymph # (Auto) Collier # (Auto) Eos # (Auto) Baso # (Auto) Nucleated RBC % (auto) Nucleated RBCs # Sodium Potassium Chloride Carbon Dioxide Anion Gap BUN Creatinine GFR Calculation Glucose Calculated Osmolality Calcium Magnesium Total Bilirubin AST ALT Alkaline Phosphatase Total Protein Albumin Globulin Vancomycin Trough 25.3 H* Completed Studies During Hospitalization Category Date Time Status CT abdomen pelvis w con* [id number] Routine Cat Scan 08/26/22 17:[address] abdomen pelvis w con* [id number] Routine Cat Scan 09/01/22 17:04 Completed CTA chest [CT angio chest PE protcl [id number]] Stat Cat Scan 08/29/22 19:07 Completed MR MRCP [id number] Stat MRI 08/28/22 08:44 [place] [id number] Routine Ultrasound 08/29/22 16:42 Completed US abdomen lmt fluid [id number] Routine Ultrasound 08/28/22 13:41 Completed US abdomen lmt fluid [id number] Routine Ultrasound 09/04/22 22:53 Completed Laboratory Last Values WBC 6.2 10^3/uL (4.0-10.0) 09/04/22 07:20 RBC 1.95 10^6/uL (4.1-5.3) L 09/04/22 07:20 Hgb 7.9 g/dL (11.5-15.3) L 09/04/22 07:20 Hct 22.4 % (37.0-47.0) L 09/04/22 07:20 MCV 114.9 fl (81-99) H 09/04/22 07:20 MCH 40.5 pg (28.0-34.0) H 09/04/22 07:20 MCHC 35.3 g/dL (30.0-36.0) 09/04/22 07:20 RDW 24.9 % (12.1-15.1) H 09/04/22 07:20 Plt Count 166 10^3/cmm (130-400) 09/04/22 07:20 MPV 11.2 fL (7.4-10.4) H 09/04/22 07:20 Neut % (Auto) 67.8 % 09/04/22 07:20 Lymph % (Auto) 15.7 % 09/04/22 07:20 Collier % (Auto) 13.8 % 09/04/22 07:20 Eos % (Auto) 1.6 % 09/04/22 07:20 Baso % (Auto) 0.8 % 09/04/22 07:20 Neut # (Auto) 4.17 10^3/uL (1.8-7.7) 09/04/22 07:20 Lymph # (Auto) 1.0 10^3/uL (0.8-4.8) 09/04/22 07:20 Collier # (Auto) 0.9 10^3/uL (0.2-0.9) 09/04/22 07:20 Eos # (Auto) 0.1 10^3/uL (0.0-0.8) 09/04/22 07:20 Baso # (Auto) 0.1 10^3/uL (0.0-0.1) 09/04/22 07:20 Nucleated RBC % (auto) 0.3 % 09/04/22 07:20 Nucleated RBCs # 0.0 /100WBC 09/04/22 07:20 Peripher Smr Path Cons Sent for review 08/29/22 05:20 Haptoglobin 23.0 mg/L (30-200) L 08/29/22 12:26 PT 24.40 SECONDS (12.1-14.9) H 09/03/22 04:48 INR 2.11 (0.8-1.2) H 09/03/22 04:48 APTT 45.6 SECONDS (23.9-36.7) H 08/31/22 18:58 Fibrinogen 194 mg/dL (174-498) 08/31/22 18:58 Fibrin Degrad Products ug/mL (NEG) 08/29/22 12:26 D-Dimer 6.00 ug/mIFEU (0-0.59) H 08/31/22 18:58 Sodium 131 mmol/L (136-145) L 09/04/22 07:20 Potassium 3.1 mmol/L (3.5-5.1) L 09/04/22 07:20 Chloride 103 mmol/L (98-107) 09/04/22 07:20 Carbon Dioxide 17 mmol/L (22-29) L 09/04/22 07:20 Anion Gap 14.1 (5-19) 09/04/22 07:20 BUN 7 mg/dL (6-20) 09/04/22 07:20 Creatinine 0.3 mg/dL (0.5-0.9) L 09/04/22 07:20 GFR Calculation 232.7 mL/min (90-130) H 09/04/22 07:20 Glucose 83 mg/dL (65-115) 09/04/22 07:20 POC Glucose 148 mg/dL (70-110) H 08/26/22 17:18 Estimat Average Glucose 74 08/26/22 14:33 Hemoglobin A1c 4.2 % (4.0-6.0) 08/26/22 14:33 Calculated Osmolality 269 mOsm/kg (285-295) L 09/04/22 07:20 Calcium 8.7 mg/dL (8.5-10.5) 09/04/22 07:20 Phosphorus 1.0 mg/dL (2.5-4.5) L 08/29/22 05:20 Magnesium 2.0 mg/dL (1.7-2.3) 09/04/22 07:20 Total Bilirubin 19.0 mg/dL (0.15-1.2) H* 09/04/22 07:20 Direct Bilirubin 12.80 mg/dL (0.00-0.30) H 08/29/22 12:26 Indirect Bilirubin 1.80 08/29/22 12:26 AST 101 U/L (0-32) H 09/04/22 07:20 ALT 36 U/L (0-33) H 09/04/22 07:20 Alkaline Phosphatase 122 U/L (35-105) H 09/04/22 07:20 Ammonia 82 umol/L (11-51) H 08/26/22 16:08 Lactate Dehydrogenase 411 U/L (135-214) H 08/29/22 12:26 C-Reactive Protein 29.4 mg/L (0.0-4.9) H 08/27/22 05:06 Total Protein 6.5 g/dL (6.6-8.7) L 09/04/22 07:20 Albumin 2.9 g/dL (3.5-5.2) L 09/04/22 07:20 Globulin 3.6 g/dL (1.3-4.6) 09/04/22 07:20 Lipase 33 U/L (13-60) 08/30/22 05:10 Vitamin B12 431 pg/mL (232-1245) 08/26/22 14:33 Urine Color Maribel (Yellow) 08/26/22 15:39 Urine Appearance Clear (CLEAR) 08/26/22 15:39 Urine pH 5 (5-7) 08/26/22 15:39 Ur Specific Bovey 1.025 (1.005-1.030) 08/26/22 15:39 Urine Protein 1+ (Negative) H 08/26/22 15:39 Urine Glucose (UA) Norm (Normal) 08/26/22 15:39 Urine Ketones 1+ (Negative) H 08/26/22 15:39 Urine Blood 2+ (Negative) H 08/26/22 15:39 Urine Nitrate Positive (Negative) H 08/26/22 15:39 Urine Bilirubin 2+ (Negative) H 08/26/22 15:39 Urine Urobilinogen 4+ mg/dL (Negative) H 08/26/22 15:39 Ur Leukocyte Esterase 1+ (Negative) H 08/26/22 15:39 Urine RBC 0-4 /hpf (0-2) H 08/26/22 15:39 Urine WBC 25-40 /hpf (0-5) H 08/26/22 15:39 Ur Squamous Epith Cells 5-10 /hpf (0-5) H 08/26/22 15:39 Amorphous Sediment Not Reportable 08/26/22 15:39 Urine Bacteria 1+ /hpf (NONE) H 08/26/22 15:39 Urine Mucus 1+ /hpf 08/26/22 15:39 Vancomycin Trough 25.3 ug/mL (10-15) H* 09/04/22 07:20 Ethyl Alcohol 80 mg/dL (0-10) H 08/26/22 14:33 Hepatitis A IgM Ab Non-reactive (Nonreactive) 08/29/22 18:19 Hep Bs Antigen Non-reactive (Nonreactive) 08/29/22 18:19 Hep B Core IgM Ab Non-reactive (Nonreactive) 08/29/22 18:19 Hepatitis C Antibody Non-reactive (Nonreactive) 08/29/22 18:19 Blood Type A Positive 08/28/22 11:50 Rho(D) Type Positive 08/28/22 11:50 Antibody Screen Negative 08/28/22 11:50 Crossmatch See Detail 08/28/22 11:50 Radiology Impressions Cholangiopancreatography MRI 08/28/22 08:44 Impression: 1. Prior cholecystectomy. 2. Limited visualization of the common bile duct due to susceptibility artifact from cholecystectomy clips. No evidence of choledocholithiasis considering limitations 3. Marked hepatomegaly with diffuse fatty infiltration. 4. Small amount of perihepatic ascites. 5. Partially evaluated colitis transverse colon as described on the recent CT. Venous Duplex 08/29/22 16:42 IMPRESSION: No evidence of deep vein thrombosis. Chest CTA 08/29/22 19:07 IMPRESSION: 1. Negative for pulmonary embolism. 2. Nonspecific patulous ground-glass opacities noted within the anterior upper lobes of both lungs suggestive of an infectious or inflammatory process. Abdomen/Pelvis CT 09/01/22 17:04 IMPRESSION: 1. Proximal colonic wall thickening may indicate infectious or inflammatory colitis. Decreased distal colonic thickening. 2. Increased ascites. 3. Hepatosplenomegaly and hepatic steatosis. 4. Stable post cholecystectomy changes and mild dilatation of the common duct. Abdomen Ultrasound 09/04/22 22:53 IMPRESSION: No peritoneal ascites. Recent Clincial Data Last Vital Signs Temp 97.3 F L 09/04/22 11:52 Pulse 80 09/04/22 11:52 Resp 16 09/04/22 11:52 BP 98/66 09/04/22 11:52 Pulse Ox 97 09/04/22 11:52 O2 Del Method Room Air 09/04/22 11:52 Vital Signs Temp Pulse Resp BP Pulse Ox O2 Del Method 09/04/22 11:52 97.3 F L 80 16 98/66 97 Room Air 09/04/22 10:16 17 09/04/22 08:00 97.7 F 85 15 88/60 97 Room Air 09/04/22 07:37 76 18 95 Room Air 09/04/22 06:00 18 09/04/22 05:55 102/66 09/04/22 04:00 97.8 F 85 19 H 98/65 97 Intake & Output/Weight 09/02/22 09/03/22 09/04/22 09/05/22 06:59 06:59 06:59 06:59 Intake Total 1610 / 1610 1455 / 1455 1652.000 / 1652.000 530 / 530 Balance 1610 / 1610 1455 / 1455 1652.000 / 1652.000 530 / 530 Vitals Last Vital Signs Temp 97.3 F L 09/04/22 11:52 Pulse 80 09/04/22 11:52 Resp 16 09/04/22 11:52 BP 98/66 09/04/22 11:52 Pulse Ox 97 09/04/22 11:52 O2 Del Method Room Air 09/04/22 11:52 TS Medications Medications Acetaminophen (Acetaminophen 500 Mg Tablet) 500 mg PO Q4H PRN PRN Reason: fever Last Admin: 08/26/22 20:19 Dose: 500 mg Albuterol/Ipratropium (Ipratropium-Albuterol 3 Ml Neb) 3 ml INHALATION Q6H PRN PRN Reason: SHORTNESS OF BREATH Folic Acid (Folic Acid 1 Mg Tablet) 1 mg PO DAILY [facility] Last Admin: 09/04/22 08:37 Dose: 1 mg Heparin Sodium (Porcine) (Heparin 5,000 Unit/Ml Inj 1 Ml) 5,000 unit SUBCUT Q12H [facility] Hydromorphone HCl (Hydromorphone 1 Mg/Ml Inj 1 Ml) 0.5 mg IVP Q3H PRN PRN Reason: sever pain Last Admin: 09/04/22 14:08 Dose: 0.5 mg Lactulose (Lactulose Oral Liq 20 Gm/30 Ml Udc) 20 gm PO TID [facility] Last Admin: 09/04/22 13:54 Dose: Not Given Magnesium Oxide (Magnesium Oxide 400 Mg Tablet) 400 mg PO BID [facility] Last Admin: 09/04/22 08:37 Dose: 400 mg Nitrofurantoin Macrocrystals (Nitrofurantoin Sr (Bid) 100 Mg Capsule) 100 mg PO BID [facility] Nystatin (Nystatin Cream 30 Gm) 1 applic TOPICAL BID [facility] Last Admin: 09/04/22 08:37 Dose: 1 applic Ondansetron HCl (Ondansetron 2 Mg/Ml Sdv 2 Ml) 4 mg IVP Q6H PRN PRN Reason: NAUSEA AND VOMITING Last Admin: 09/02/22 07:21 Dose: 4 mg Pantoprazole Sodium (Pantoprazole 40 Mg Sdv) 40 mg IVP Q12H [facility] Last Admin: 09/04/22 06:00 Dose: 40 mg Prednisolone Sodium Phosphate (Pred Sod Phos 15 Mg/5 Ml Soln 30ml Btl) 15 mg PO BID [facility] Last Admin: 09/04/22 11:45 Dose: 15 mg Rifaximin (Rifaximin 550 Mg Tablet) 550 mg PO BID [facility]; Protocol Last Admin: 09/04/22 08:36 Dose: 550 mg Thiamine HCl (Thiamine 100 Mg/Ml Sdv) 100 mg IVP DAILY [facility] Last Admin: 09/04/22 10:16 Dose: 100 mg Vancomycin HCl (Vancomycin 1,000 Mg Oral Angela (Btl)) 125 mg PO QID [facility] Last Admin: 09/04/22 11:45 Dose: 125 mg Discontinued Medications Dextrose (Dextrose 50% Syringe 50 Ml) 50 ml IVP ONCE ONE Stop: 08/26/22 16:33 Last Admin: 08/26/22 16:51 Dose: 50 ml Fluconazole (Fluconazole 100 Mg Tablet) 200 mg PO DAILY [facility] Stop: 09/16/22 12:09 Last Admin: 09/04/22 08:37 Dose: 200 mg Haloperidol Lactate (Haloperidol Inj 5 Mg/Ml Inj 1 Ml) 2 mg IM NOW ONE Stop: 08/26/22 16:03 Last Admin: 08/26/22 16:13 Dose: 2 mg Hydromorphone HCl (Hydromorphone 1 Mg/Ml Inj 1 Ml) 0.2 mg IVP Q4H PRN PRN Reason: pain Last Admin: 08/30/22 18:02 Dose: 0.2 mg Hydromorphone HCl (Hydromorphone 1 Mg/Ml Inj 1 Ml) 0.2 mg IVP ONCE ONE Stop: 08/30/22 15:10 Last Admin: 08/30/22 15:23 Dose: 0.2 mg Hydromorphone HCl (Hydromorphone 1 Mg/Ml Inj 1 Ml) 0.2 mg IVP Q4H PRN PRN Reason: sever pain Last Admin: 08/31/22 13:43 Dose: 0.2 mg Hydromorphone HCl (Hydromorphone 1 Mg/Ml Inj 1 Ml) 0.2 mg IVP Q3H PRN PRN Reason: sever pain Last Admin: 09/01/22 06:43 Dose: 0.2 mg Hydromorphone HCl (Hydromorphone 1 Mg/Ml Inj 1 Ml) 0.3 mg IVP Q3H PRN PRN Reason: sever pain Last Admin: 09/01/22 09:44 Dose: 0.3 mg Hydromorphone HCl (Hydromorphone 1 Mg/Ml Inj 1 Ml) 0.4 mg IVP Q3H PRN PRN Reason: sever pain Last Admin: 09/02/22 09:06 Dose: 0.4 mg Sodium Chloride (Sodium Chloride 0.9%) 1,000 mls @ 999 mls/hr IV .Q1H1M ONE Stop: 08/26/22 15:19 Last Infusion: 08/26/22 16:16 Dose: Infused Folic Acid 1 mg/ Multivitamins 10 ml/ Thiamine HCl 100 mg/Sodium Chloride 1,011.2 mls @ 252.8 mls/hr IV ONCE ONE Stop: 08/26/22 19:59 Last Infusion: 08/26/22 20:31 Dose: Infused Sodium Chloride (Sodium Chloride 0.9%) 1,000 mls @ 100 mls/hr IV .Q10H [facility] Last Infusion: 08/26/22 19:28 Dose: Infused Ceftriaxone Sodium 2,000 mg/ (Sodium Chloride) 50 mls @ 100 mls/hr IV Q24H [facility]; Protocol Last Infusion: 08/26/22 20:31 Dose: Infused Dextrose/Sodium Chloride (Dextrose 5%-Sod Chloride 0.9%) 1,000 mls @ 75 mls/hr IV .[id number] [facility] Last Infusion: 08/28/22 07:39 Dose: Infused Magnesium Sulfate (Magnesium Sulfate Premix) 4 gm in 100 mls @ 50 mls/hr IV ONCE ONE Stop: 08/27/22 15:29 Last Infusion: 08/28/22 07:39 Dose: Infused Piperacillin Sod/Tazobactam (Sod 3.375 gm/ Sodium Chloride) 50 mls @ 12.5 mls/hr IV Q8H [facility]; Protocol Last Admin: 09/04/22 13:53 Dose: 12.5 mls/hr Lidocaine HCl 5 ml/ Potassium (Chloride) 105 mls @ 26.25 mls/hr IV ONCE ONE Stop: 08/28/22 12:43 Last Infusion: 08/28/22 14:01 Dose: Infused Potassium Phosphate 40 meq/ (Sodium Chloride) 109.0909 mls @ 27.25 mls/hr IV ONCE ONE Stop: 08/29/22 12:52 Last Infusion: 08/29/22 14:26 Dose: Infused Vancomycin/PEG/NADA/Lysine/Water (Vancocin) 1,250 mg in 250 mls @ 200 mls/hr IV Q12H [facility] Last Infusion: 08/30/22 22:10 Dose: Infused Vancomycin/PEG/NADA/Lysine/Water (Vancocin) 1,250 mg in 250 mls @ 200 mls/hr IV Q18H [facility] Last Admin: 09/04/22 08:32 Dose: Not Given Magnesium Sulfate (Magnesium Sulfate Premix) 2 gm in 50 mls @ 50 mls/hr IV ONCE ONE Stop: 09/02/22 10:19 Last Infusion: 09/02/22 11:18 Dose: Infused Lidocaine HCl 5 ml/ Potassium (Chloride) 105 mls @ 52.5 mls/hr IV ONCE ONE Stop: 09/02/22 11:20 Last Infusion: 09/02/22 12:49 Dose: Infused Magnesium Sulfate 1 gm/ Sodium (Chloride) 52 mls @ 104 mls/hr IV ONCE ONE Stop: 09/03/22 09:59 Last Infusion: 09/03/22 12:18 Dose: Infused Vancomycin HCl 1,000 mg/ (Sodium Chloride) 250 mls @ 250 mls/hr IV Q24H [facility] Iohexol (Iohexol 350 Mg/Ml 500 Ml Btl (Per Ml)) 0 ml IV ONCE ONE Stop: 08/27/22 08:37 Last Admin: 08/27/22 08:37 Dose: 100 ml Iohexol (Iohexol 350 Mg/Ml 500 Ml Btl (Per Ml)) 0 ml IV ONCE ONE Stop: 08/29/22 20:13 Last Admin: 08/29/22 20:12 Dose: 100 ml Iohexol (Iohexol 350 Mg/Ml 500 Ml Btl (Per Ml)) 0 ml IV ONCE ONE Stop: 09/02/22 13:05 Last Admin: 09/02/22 13:04 Dose: 100 ml Lactulose (Lactulose Oral Liq 20 Gm/30 Ml Udc) 30 gm PO TID [facility] Last Admin: 09/02/22 08:52 Dose: 30 gm Lidocaine HCl (Lidocaine 1% Inj 10 Ml (Per Ml)) 5 ml XX ONCE ONE Stop: 08/29/22 12:31 Lidocaine HCl (Lidocaine 1% Inj 10 Ml (Per Ml)) 2.5 ml XX ONCE ONE Stop: 08/29/22 12:31 Last Admin: 08/29/22 12:42 Dose: 2.5 ml Metoclopramide HCl (Metoclopramide 5 Mg/Ml Sdv 2 Ml) 5 mg IVP ONCE ONE Stop: 08/26/22 18:25 Last Admin: 08/26/22 19:48 Dose: 5 mg Morphine Sulfate (Morphine 4 Mg/Ml Sdv 1 Ml) 4 mg IVP ONCE ONE Stop: 08/26/22 14:20 Last Admin: 08/26/22 14:37 Dose: 4 mg Ondansetron HCl (Ondansetron 2 Mg/Ml Sdv 2 Ml) 4 mg IVP ONCE ONE Stop: 08/26/22 14:20 Last Admin: 08/26/22 14:37 Dose: 4 mg Pantoprazole Sodium (Pantoprazole Dr 40 Mg Tablet) [facility] [place] [facility] Admin: 08/28/22 05:16 Dose: 40 mg Phenobarbital (Phenobarbital 32.4 Mg Tablet) 97.2 mg PO BID PRN PRN Reason: ALCOHOL WITHDRAWAL Last Admin: 08/31/22 09:45 Dose: 97.2 mg Phenobarbital Sodium (Phenobarbital 130 Mg/Ml Sdv 1 Ml) 60 mg IM Q6H PRN PRN Reason: Alcohol Withdrawal, [id number] Last Admin: 08/26/22 20:19 Dose: 60 mg Phenobarbital Sodium (Phenobarbital 130 Mg/Ml Sdv 1 Ml) 60 mg IV Q6H [facility] Last Admin: 08/28/22 07:39 Dose: Not Given Phenobarbital Sodium (Phenobarbital 130 Mg/Ml Sdv 1 Ml) 60 mg IV Q6H PRN PRN Reason: ALCOHOL WITHDRAWAL Potassium Chloride (Potassium Chloride Er 20 Meq Tablet) 40 meq PO ONCE ONE Stop: 08/26/22 18:25 Last Admin: 08/26/22 20:31 Dose: Not Given Potassium Chloride (Potassium Chloride Er 20 Meq Tablet) 20 meq PO ONCE ONE Stop: 08/31/22 08:31 Last Admin: 08/31/22 09:46 Dose: 20 meq Potassium Chloride (Potassium Chloride Er 20 Meq Tablet) 40 meq PO ONCE ONE Stop: 09/01/22 08:26 Last Admin: 09/01/22 08:46 Dose: 40 meq Potassium Chloride (Potassium Chloride Er 20 Meq Tablet) 20 meq PO ONCE ONE Stop: 09/03/22 09:31 Last Admin: 09/03/22 10:25 Dose: 20 meq Sodium Chloride (Sodium Chloride 0.9% 100 Ml Bag) 50 ml IV PRN PRN PRN Reason: Blood transfusion prime and flush Stop: 08/30/22 06:37 Sodium Phosphate (Fleet Enema 133 Ml Enema) 133 ml VA ONCE ONE Stop: 08/27/22 12:38 Last Admin: 08/27/22 18:50 Dose: 133 ml Tramadol HCl (Tramadol 50 Mg Tablet) 50 mg PO ONCE ONE Stop: 08/27/22 06:08 Last Admin: 08/27/22 06:25 Dose: 50 mg Allergies codeine Allergy (Verified 08/26/22 14:19) ALGY-Hives ketorolac [From Toradol] Allergy (Verified 08/26/22 14:19) ALGY-Rash naproxen [From Naprosyn] Allergy (Verified 08/26/22 14:19) ADR-Vomiting prochlorperazine [From Compazine] Allergy (Verified 08/26/22 14:19) ALGY-Swell Lip/Tongue/Throat Penicillins Adverse Reaction (Intermediate, Verified 08/26/22 14:19) ADR-Vomiting Vomiting Home Medications albuterol sulfate 90 mcg/actuation aerosol inhaler 2 puff inhalation Q6H PRN Shortness Of Breath 04/07/22 [History Confirmed 08/26/22] aspirin 325 mg tablet 650 mg PO DAILY PRN Chest Pain 04/07/22 [History Confirmed 08/26/22] ondansetron 4 mg disintegrating tablet 4 mg PO Q6H PRN nausea and vomiting #20 tabs 06/11/22 [Rx Confirmed 08/26/22] fluticasone propionate 50 mcg/actuation nasal spray,suspension 1 - 2 spray intranasal DAILY PRN Allergy Symptoms 08/26/22 [History Confirmed 08/26/22] hydroxyzine HCl 25 mg tablet 25 mg PO BEDTIME PRN Anxiety 08/26/22 [History Confirmed 08/26/22] pantoprazole 40 mg tablet,delayed release 40 mg PO QAM 08/26/22 [History Confirmed 08/26/22] Discharge Plan Discharge Patient Disposition: Xfer Short-Term Hosp Condition: Stable Prescriptions: No Action aspirin 325 mg Tablet 650 mg PO DAILY PRN (Reason: Chest Pain) Hold Instructions: see pcp before resuming albuterol sulfate 90 mcg/actuation Hfa Aerosol Inhaler 2 puff INHALATION Q6H PRN (Reason: Shortness Of Breath) ondansetron 4 mg tablet,disintegrating 4 mg PO Q6H PRN (Reason: nausea and vomiting) Qty: 20 0RF pantoprazole 40 mg tablet,delayed release (DR/EC) 40 mg PO QAM hydroxyzine HCl 25 mg tablet 25 mg PO BEDTIME PRN (Reason: Anxiety) fluticasone propionate 50 mcg/actuation spray,suspension 1 - 2 spray INTRANASAL DAILY PRN (Reason: Allergy Symptoms) Discharge Orders: Transfer Out of Facility (Order); Ordered 08/29/22 Ordered By: Rolando Villa Referrals: Aditya Degroot DO [Primary Care Provider] - Discharge Diet: Low Cholesterol Patient Instructions: Opioid Safety Transfer Attestations Time Spent in Transfer Care: greater than 30 min Status at Transfer: Cognitive status at transfer: cognitively intact ; Behavioral status at transfer: cooperative ; Quality Metrics Clinical Quality Measures [ No reported AMI, CVA or VTE this stay] Coding Level of Care Code Acute Code for Chg Fwd Diagnoses Cirrhosis of liver K74.60 Alcohol abuse F10.10 Pseudomembranous colitis A04.72 Alcoholic hepatitis K70.10 Decompensated hepatic cirrhosis K72.90; K74.60 Pyelonephritis N12 Pancreatitis K85.90 Anemia D64.9
[2022-09-07] MEDS: LORazepam 2 mg/mL INJ 1 mL 0.5 MG IVP (19:48)
== END 2022-09-07 20:05 | disposition short-term general hospital (02) | DRG 432 ==
LOC: ER 16:02 → MEDSURG 16:16
PROVIDERS: Internal Medicine; Admitting Provider Internal Medicine; Emergency Provider Family Medicine; PCP Family Medicine; Visit Provider Internal Medicine
DX: K70.40 Alcoholic hepatic failure without coma (principal); K85.20 Alcohol induced acute pancreatitis without necrosis or infection; A04.72 Enterocolitis due to Clostridium difficile, not specified as recurrent; N39.0 Urinary tract infection, site not specified; F10.239 Alcohol dependence with withdrawal, unspecified; K76.6 Portal hypertension; D61.818 Other pancytopenia; K86.0 Alcohol-induced chronic pancreatitis; K70.31 Alcoholic cirrhosis of liver with ascites; K80.50 Calculus of bile duct without cholangitis or cholecystitis without obstruction; F17.200 Nicotine dependence, unspecified, uncomplicated; K29.20 Alcoholic gastritis without bleeding; D64.9 Anemia, unspecified; D69.6 Thrombocytopenia, unspecified; K70.0 Alcoholic fatty liver; K70.11 Alcoholic hepatitis with ascites; B95.2 Enterococcus as the cause of diseases classified elsewhere; Z79.51 Long term (current) use of inhaled steroids; E83.42 Hypomagnesemia; F10.229 Alcohol dependence with intoxication, unspecified; F32.A Depression, unspecified; E87.6 Hypokalemia; G89.29 Other chronic pain; M54.9 Dorsalgia, unspecified
CPT/HCPCS: 36415; 36416; 36430; 49083; 71275; 74177; 74181; 76705; 80053; 80074; 80202; 80307; 80503; 81001; 82140; 82247; 82248; 82274; 82607; 82962; 83010; 83036; 83615; 83690; 83735; 84100; 85018; 85025; 85362; 85378; 85384; 85610; 85730; 86140; 86850; 86900; 86920; 87040; 87077; 87086; 87186; 87324; 87493; 87506; 93970; 96372; C9113; J0696; J1170; J1630; J1644; J2060; J2270; J2405; J2543; J2560; J2765; J3370; J3411; J3475; J3480; J3490; J7030; J7042; J7510; P9016; P9040; Q9967

== ENCOUNTER 2022-09-19 08:56 | Emergency (ER) | payer MEDICAID, SELFPAY ==
[2022-09-19 09:05] VITALS: BP 90/62; PULSE 84; RESP 18; TEMP 36.9; O2SAT 98; BMI 28.6
--- NOTE | 2022-09-19 09:15 | ED_ITS ---
HPI - Abdominal Pain General: Chief Complaint: Abdominal Pain Stated Complaint: ab/ back pain legs and feet swollen Time Seen by Provider: 09/19/22 09:02 Source: patient Mode of arrival: ambulatory Limitations: no limitations History of Present Illness: 51-year-old female has a history of cirrhosis of the liver from alcohol abuse she has had severe elevated bilirubin she had actually just gotten out of [facility] earlier this week. She has chronic abdominal pain from her cirrhosis states she has been having epigastric pain she rates a 8 out of 10. She denies any fevers denies any worsening proving factors Associated Symptoms: Denies chills, diarrhea, fever(s), nausea and vomiting Review of Systems Const: Denies: fever(s) or chills Eyes: Denies: eye discomfort ENMT: Denies: throat pain or dental pain Card: Denies: chest pain Resp: Denies: dyspnea GI: Reports: abdominal pain; Denies: nausea, vomiting or diarrhea Musc: Denies: neck pain or back pain Skin/Breast: Denies: rash Neuro: Denies: headache(s) PFSH ED PFSH: Medical History Abdominal pain Abdominal pain Abdominal pain Acquired hyperbilirubinemia Acute dehydration Acute hypokalemia KATRIN (acute kidney injury) Alcohol abuse Alcohol dependence Alcohol dependence with withdrawal Alcohol use disorder Alcohol withdrawal Alcoholic gastritis Alcoholic hepatitis Alcoholic ketoacidosis Alcoholism Anemia Anxiety Carpal tunnel syndrome Chronic alcoholic hepatitis Chronic back pain Chronic pancreatitis Cirrhosis Decompensated hepatic cirrhosis Depression Diarrhea Enteritis Fracture of proximal phalanx of right thumb Gastritis GERD (gastroesophageal reflux disease) H. pylori infection Hepatitis A Hypokalemia Hypokalemia Hypokalemia Hypomagnesemia Intractable nausea and vomiting Intractable nausea and vomiting Macrocytic anemia Nausea & vomiting Nausea and vomiting Pancreatitis Pancytopenia Pancytopenia Pseudomembranous colitis Pyelonephritis Sciatica Small bowel obstruction, partial Thrombocytopenia Thrombocytopenia Tobacco dependency Transaminitis Urinary tract infection Surgical History H/O rotator cuff surgery H/O: hysterectomy History of appendectomy History of cholecystectomy Family History Denies family history of Diabetes CAD (coronary artery disease) Dementia Social History Smoking and tobacco status: current every day smoker Alcohol intake: current Alcohol intake frequency: 3 or more drinks per day Alcohol type: hard liquor Desire information about alcohol rehabilitation?: No Substance/Drug Use: former Current occupation: On disability Physical Exam Const: COMMON NORMALS: patient oriented x3 GENERAL APPEARANCE: ill appearing HENMT: COMMON NORMALS: normocephalic and atraumatic HEAD & SCALP: normocephalic and atraumatic Neck/C-Spine: COMMON NORMALS: full ROM and supple Chest: COMMONS NORMALS: normal inspection of the chest and normal palpation of entire chest wall Resp: COMMON NORMALS: normal respiratory effort, No retractions, No use of accessory muscles and clear to auscultation bilaterally AUSCULTATION: clear to auscultation bilaterally Cardio: COMMON NORMALS: regular rate, regular rhythm and No murmurs present (Cardio) RATE: regular rate RHYTHM: regular rhythm GI: COMMON NORMALS: Normal to inspection, nondistended, normoactive bowel sounds present, Soft to palpation and no masses PALPATION: Yes Soft to palpation OTHER: Epigastric tenderness Extremity: COMMON NORMALS: normal to inspection and full ROM Neuro: COMMON NORMALS: patient oriented x3, moves all extremities and no focal motor deficits Psych: COMMON NORMALS: mental status grossly normal, Normal thought process present and cooperative THOUGHT PROCESS: Normal thought process present Skin: COMMON NORMALS: no wounds NARRATIVE SKIN EXAM: Jaundiced Course Vital Signs: Vital signs: Vital Signs Temperature 98.4 F 09/19/22 09:05 Pulse Rate 88 09/19/22 11:00 Respiratory Rate 30 H 09/19/22 11:00 Blood Pressure 108/56 09/19/22 11:00 Pulse Oximetry 97 09/19/22 11:00 Oxygen Delivery Me thod Room Air 09/19/22 10:30 MDM - Abdominal Pain Medical Decision Making Patient presents here with abdominal pain she is got chronic abdominal pain from cirrhosis her bilirubin here is at her baseline I had a long discussion with her and her she is still drinking alcohol as well I informed it looks like she is probably in end-stage liver failure her labs are unchanged today she does have a hepatology follow-up coming up I did inform her that she needs to follow- up I did discuss the possibility of hospice as well will prescribe her pain meds at this time she states she is not ready for hospice at this time but will think about it. Medical Records I reviewed the patient's medical records. Lab Data I reviewed the patient's lab results. 09/19/22 09:18 09/19/22 09:18 Labs/Radiology: Radiology Impressions Chest X-Ray 09/19/22 09:27 IMPRESSION: 1. Possible small right pleural effusion. 2. No pulmonary consolidation. 3. Asymmetric elevation of the right hemidiaphragm similar to the findings on the prior CT. Laboratory Results WBC 11.8 10^3/uL (4.0-10.0) H 09/19/22 09:18 RBC 2.41 10^6/uL (4.1-5.3) L 09/19/22 09:18 Hgb 9.7 g/dL (11.5-15.3) L 09/19/22 09:18 Hct 27.9 % (37.0-47.0) L 09/19/22 09:18 MCV 115.8 fl (81-99) H 09/19/22 09:18 MCH 40.2 pg (28.0-34.0) H 09/19/22 09:18 MCHC 34.8 g/dL (30.0-36.0) 09/19/22 09:18 RDW 23.2 % (12.1-15.1) H 09/19/22 09:18 Plt Count 144 10^3/cmm (130-400) 09/19/22 09:18 MPV 11.7 fL (7.4-10.4) H 09/19/22 09:18 Neut % (Auto) 83.7 % 09/19/22 09:18 Lymph % (Auto) 8.2 % 09/19/22 09:18 Love % (Auto) 6.6 % 09/19/22 09:18 Eos % (Auto) 0.6 % 09/19/22 09:18 Baso % (Auto) 0.4 % 09/19/22 09:18 Neut # (Auto) 9.85 10^3/uL (1.8-7.7) H 09/19/22 09:18 Lymph # (Auto) 1.0 10^3/uL (0.8-4.8) 09/19/22 09:18 Love # (Auto) 0.8 10^3/uL (0.2-0.9) 09/19/22 09:18 Eos # (Auto) 0.1 10^3/uL (0.0-0.8) 09/19/22 09:18 Baso # (Auto) 0.1 10^3/uL (0.0-0.1) 09/19/22 09:18 Nucleated RBC % (auto) 0 % 09/19/22 09:18 Nucleated RBCs # 0.0 /100WBC 09/19/22 09:18 Sodium 134 mmol/L (136-145) L 09/19/22 09:18 Potassium 3.7 mmol/L (3.5-5.1) 09/19/22 09:18 Chloride 101 mmol/L (98-107) 09/19/22 09:18 Carbon Dioxide 20 mmol/L (22-29) L 09/19/22 09:18 Anion Gap 16.7 (5-19) 09/19/22 09:18 BUN 11 mg/dL (6-20) 09/19/22 09:18 Creatinine 0.5 mg/dL (0.5-0.9) 09/19/22 09:18 GFR Calculation 129.1 mL/min (90-130) 09/19/22 09:18 Glucose 76 mg/dL (65-115) 09/19/22 09:18 Calculated Osmolality 276 mOsm/kg (285-295) L 09/19/22 09:18 Lactic Acid 1.6 mmol/L (0.5-2.2) 09/19/22 09:18 Calcium 8.4 mg/dL (8.5-10.5) L 09/19/22 09:18 Total Bilirubin 16.8 mg/dL (0.15-1.2) H* 09/19/22 09:18 AST 126 U/L (0-32) H 09/19/22 09:18 ALT 89 U/L (0-33) H 09/19/22 09:18 Alkaline Phosphatase 132 U/L (35-105) H 09/19/22 09:18 Troponin T Baseline 10 ng/L (0-10) 09/19/22 09:18 Total Protein 6.7 g/dL (6.6-8.7) 09/19/22 09:18 Albumin 2.8 g/dL (3.5-5.2) L 09/19/22 09:18 Globulin 3.9 g/dL (1.3-4.6) 09/19/22 09:18 Lipase 59 U/L (13-60) 09/19/22 09:18 Ethyl Alcohol 12 mg/dL (0-10) H 09/19/22 09:18 Ethyl Alcohol Cancelled 09/19/22 09:18 Discharge Plan Discharge Patient Disposition: Home Clinical Impression: Cirrhosis of liver, Alcohol abuse, Abdominal pain Condition: Stable Prescriptions: New ondansetron 4 mg tablet,disintegrating 4 mg PO Q6H PRN (Reason: nausea and vomiting) Qty: 14 0RF OxyContin 10 mg tablet,oral only,ext.rel.12 hr 10 mg PO BID Qty: 20 0RF No Action aspirin 325 mg Tablet 650 mg PO DAILY PRN (Reason: Chest Pain) Hold Instructions: see pcp before resuming albuterol sulfate 90 mcg/actuation Hfa Aerosol Inhaler 2 puff INHALATION Q6H PRN (Reason: Shortness Of Breath) ondansetron 4 mg tablet,disintegrating 4 mg PO Q6H PRN (Reason: nausea and vomiting) Qty: 20 0RF pantoprazole 40 mg tablet,delayed release (DR/EC) 40 mg PO QAM fluticasone propionate 50 mcg/actuation spray,suspension 1 - 2 spray INTRANASAL DAILY PRN (Reason: Allergy Symptoms) trazodone 50 mg tablet 100 mg PO BEDTIME oxycodone 10 mg tablet 20 mg PO Q4H PRN (Reason: Pain) Discharge Orders: Discharge ED (Routine); Ordered 09/19/22 Ordered By: Bruce Valdes Discharge Diet: Advance as tolerated Discharge Activity: Resume usual activity Patient Instructions: Abdominal Pain (ED), Opioid Safety, Pain Management Coding Level of Care Code ED Conference Translator for Shila Mcallister
--- NOTE | 2022-09-19 09:16 | ECG_ITS ---
[facility] Test Date: 2022-09-19 Pat Name: Melissa Portillo Department: Room: Gender: Female Private Detective: : 1970 Requested By: Bruce Valdes Order Number: [id number] Liz MD: Jensen Kidd M.D. Measurements Intervals [place] Rate: 83 P: 52 IL: 158 QRS: 30 QRSD: 85 T: 18 QT: 373 QTc: 439 Interpretive Statements SINUS RHYTHM Compared to ECG 02/11/2022 08:21:16 Sinus tachycardia no longer present ST (T wave) deviation no longer present Electronically Signed On 09-19-2022 17:44:05 CDT by Jensen Kidd M.D. [id number] f
--- NOTE | 2022-09-19 09:27 | XRR_ITS ---
PROCEDURE INFORMATION: Exam: XR Chest Exam date and time: 09/19/2022 9:32 AM Age: 51 years old Clinical indication: Pain; Angina pectoris; Additional info: Cp TECHNIQUE: Imaging protocol: Radiologic exam of the chest. Views: 1 view. COMPARISON: CT angio chest PE protcl [id number] 08/29/2022 8:08 PM FINDINGS: Lungs: There is no consolidation. Pleural spaces: The right lateral costophrenic sulcus is blunted. No pneumothorax. Heart/Mediastinum: There is mild enlargement of the cardiac silhouette. Diaphragm: There is asymmetric elevation of the right hemidiaphragm. Bones/joints: Bones are unremarkable. XR/XR chest 1V portable [id number] IMPRESSION: 1. Possible small right pleural effusion. 2. No pulmonary consolidation. 3. Asymmetric elevation of the right hemidiaphragm similar to the findings on the prior CT.
[2022-09-19] MEDS: HYDROmorphone 1 mg/mL INJ 1 mL 0.5 MG IVP (09:37)
[2022-09-19] MEDS: sodium chloride 0.9% 1,000 ML 999 ML IV (09:37)
[2022-09-19] MEDS: ondansetron 2 mg/ML SDV 2 mL 4 MG IVP (09:41)
[2022-09-19 09:43] LABS: Lactic Sepsis W/Reflex 1.6 mmol/L (0.5-2.2)
[2022-09-19 10:10] VITALS: BP 97/58; O2SAT 85
[2022-09-19 10:10] LABS: Troponin(5th) Baseline 10 ng/L (0-10)
[2022-09-19 10:12] LABS: Albumin Level 2.8 g/dL (3.5-5.2); Alcohol Level 12 mg/dL (0-10); Alkaline Phosphatase 132 U/L (35-105); Blood Urea Nitrogen 11 mg/dL (6-20); Calcium 8.4 mg/dL (8.5-10.5); Carbon Dioxide 20 mmol/L (22-29); Chloride 101 mmol/L (98-107); Globulin 3.9 g/dL (1.3-4.6); Glomerular Filtration Rate 129.1 mL/min (90-130); Glucose 76 mg/dL (65-115); Lipase 59 U/L (13-60); Osmolality Calculated 276 mOsm/kg (285-295); Sodium 134 mmol/L (136-145); Total Protein 6.7 g/dL (6.6-8.7)
--- NOTE | 2022-09-19 10:17 | PC.PHAR ---
pt states she takes care of her own medications-ext shows [facility] filled a nicotine 14mg/24h patch 09/14/22 14d/s-prednisolone sodium phosphate 09/14/22 30d/s and folic acid 1mg daily filled 09/14/22 7d/s pt and pts boyfriend states the pt never started taking them-ext also shows trazodone 50mg hs filled 09/14/22 7d/s pt states the dr told her she could take 100mg hs pt states been taking 100mg and is out-oxycodone 10mg tid prn filled 09/14/22 7d/s pt states the dr told her she could take 20mg q4h prn-notes are made in the pharmacy comments
[2022-09-19 10:21] LABS: Alanine Aminotransferase 89 U/L (0-33); Anion Gap 16.7 (5-19); Aspartate Amino Transferase 126 U/L (0-32); Potassium 3.7 mmol/L (3.5-5.1)
[2022-09-19 10:24] LABS: Total Bilirubin 16.8 mg/dL (0.15-1.2)
[2022-09-19 10:28] VITALS: O2SAT 98
[2022-09-19 10:30] VITALS: BP 108/56; PULSE 93; O2SAT 98
[2022-09-19 10:38] LABS: Basophils # 0.1 10^3/uL (0.0-0.1); Basophils % 0.4 %; Eosinophils # 0.1 10^3/uL (0.0-0.8); Eosinophils % 0.6 %; Hematocrit 27.9 % (37.0-47.0); Hemoglobin 9.7 g/dL (11.5-15.3); Lymphocytes % 8.2 %; Mean Corpuscular HGB Conc 34.8 g/dL (30.0-36.0); Mean Corpuscular Hemoglobin 40.2 pg (28.0-34.0); Mean Corpuscular Volume 115.8 fl (81-99); Mean Platelet Volume 11.7 fL (7.4-10.4); Monocytes # 0.8 10^3/uL (0.2-0.9); Monocytes % 6.6 %; Neutrophils # 9.85 10^3/uL (1.8-7.7); Neutrophils % 83.7 %; Nucleated Red Blood Cells % 0 %; Platelet Count 144 10^3/cmm (130-400); Red Blood Count 2.41 10^6/uL (4.1-5.3); Red Cell Distribution Width 23.2 % (12.1-15.1); White Blood Count 11.8 10^3/uL (4.0-10.0)
[2022-09-19 10:45] VITALS: RESP 25; O2SAT 98
[2022-09-19] MEDS: HYDROmorphone 1 mg/mL INJ 1 mL IVP (10:45)
[2022-09-19 11:00] VITALS: BP 108/56; PULSE 88; RESP 30; O2SAT 97
== END 2022-09-19 11:01 | disposition home or self-care (01) ==
PROVIDERS: Emergency Provider Emergency Medicine
DX: R10.13 Epigastric pain (principal); K74.60 Unspecified cirrhosis of liver; F10.10 Alcohol abuse, uncomplicated; Y90.0 Blood alcohol level of less than 20 mg/100 ml; Z79.82 Long term (current) use of aspirin; Z79.899 Other long term (current) drug therapy
CPT/HCPCS: 71045; 80053; 80307; 83605; 83690; 84484; 85025; 93005; 96361; 96374; 96375; 96376; 99285; J1170; J2405; J7030